=== PATIENT | female | born 1975 | race Caucasian/White ===

== ENCOUNTER 2023-08-07 16:04 | Emergency (ER) | payer OTHER, SELFPAY ==
[2023-08-07] VITALS (17 sets, daily range): BP systolic 107–143; BP diastolic 69–90; PULSE 66–93; RESP 13–27; TEMP 36.6; O2SAT 97–100; BMI 25.8
--- NOTE | 2023-08-07 16:19 | ECG_ITS ---
[facility] Test Date: 2023-08-07 Pat Name: SUNSHINE RAMIREZ Department: Room: - Gender: Female Wound Care Coordinator: : 1975 Requested By: CJ LAZO Order Number: [id number] Reading MD: JODI MARCANO Measurements Intervals Hiller Rate: 67 P: 25 UT: 152 QRS: 107 QRSD: 78 T: 60 QT: 362 QTc: 378 Interpretive Statements 1100 Sinus rhythm 2420 RSR (QR) in lead V1/V2, consistent with right ventricular conduction delay 7100 Abnormal right axis deviation 9130 borderline ECG No previous ECG available for comparison Electronically Signed On 08-08-2023 19:59:56 EST by JODI MARCANO
--- NOTE | 2023-08-07 16:19 | XR_ITS ---
[address] [address] Patient Name: SUNSHINE RAMIREZ MRN: [id number] date: 1975 Sex: F Assigned Patient Location: ER Current Patient Location: ER Accession/Order Number: [id number] Exam Date: 08/07/2023 16:30 Report Date: 08/07/2023 17:08 At the request of: SALLY OLIVERA Procedure: XR chest 1V EXAM: XR chest 1V HISTORY: chest pain COMPARISON: None. TECHNIQUE: Single view of the chest FINDINGS: Heart size normal. No focal consolidation, pleural effusion, pulmonary congestion or pneumothorax. External leads. XR/XR chest 1V IMPRESSION: No acute findings. Electronically authenticated by: JACINTO NASCIMENTO Date: 08/07/2023 17:08
[2023-08-07 16:47] LABS: Basophils Percent Auto 0.5 % (0.2-2.0); Eosinophils Absolute Auto 0.1 10^3/uL (0.0-0.7); Eosinophils Percent Auto 1.4 % (0.9-7.0); Hematocrit 37.7 % (36.0-48.0); Hemoglobin 12.6 g/dL (12.0-16.0); Immature Granulocytes Abs Auto 0.02 10^3/uL (0.00-0.03); Immature Granulocytes Pct Auto 0.3 % (0.0-0.5); Lymphocytes Percent Auto 26.2 % (20.5-60.0); Mean Corpuscular HGB Conc 33.4 g/dL (29.9-35.2); Mean Corpuscular Hemoglobin 30.2 pg (26.7-34.0); Mean Corpuscular Volume 90.4 fL (81.0-99.0); Mean Platelet Volume 9.6 fL (9.5-13.5); Monocytes Absolute Auto 0.8 10^3/uL (0.3-0.8); Monocytes Percent Auto 10.1 % (1.7-12.0); Neutrophils Absolute Auto 4.8 10^3/uL (1.4-6.5); Neutrophils Percent Auto 61.5 % (43.0-75.0); Platelet Count 257 10^3/uL (150-450); Red Blood Count 4.17 10^6/uL (4.20-5.40); Red Cell Distribution Width 11.6 % (11.0-15.0); White Blood Count 7.8 10^3/uL (4.0-11.0)
--- NOTE | 2023-08-07 16:55 | ED_ITS ---
HPI - General Adult General Chief complaint: Chest Pain Stated complaint: CP, ARM/SHOULDER PAIN Time Seen by Provider: 08/07/23 16:09 Source: patient Mode of arrival: walk-in History of Present Illness HPI narrative: Patient has cardiomyopathy and microvascular cardiac disease, she told me. Yesterday she developed dizziness and had increase in pain between her shoulder blades and down her left arm with some chest tightness. She was told that if these symptoms - which aside from the dizziness are chronic - that she should come to the ED to be evaluated. She admitted to me that she recently had increased work and not as much time to eat and drink while she prepared for her son's wedding. No cough/cold symptoms. No fever or chills. No vomiting or diarrhea. Related Data Home Medications Medication Instructions Recorded Confirmed carvedilol 25 mg tablet 62.5 mg PO BID 08/07/23 08/07/23 Allergies Allergy/AdvReac Type Severity Reaction Status Date / Time fentanyl Allergy Severe Verified 08/07/23 16:18 Iodinated Contrast Media Allergy Severe Verified 08/07/23 16:18 midazolam [From Versed] Allergy Severe Verified 08/07/23 16:18 Exam Narrative Exam Narrative: Nurses notes and vital signs reviewed and patient is not hypoxic. afebrile General: Well-appearing and in no apparent distress. Skin: Warm, dry, no pallor noted. Head: Normocephalic, atraumatic. Eye: Pupils are equal, round and EOMI. No scleral icterus. Ears, Nose, Mouth, and Throat: TM are clear, no nasal mucosal hypertrophy. Oral mucosa is moist, no posterior oropharynx erythema, uvula is mid-line Cardiovascular: Regular Rate and Rhythm without murmur, gallop or rub. Respiratory: No accessory muscle use or respiratory distress. Lungs are clear to auscultation, no wheezing, rales or rhonchi Musculoskeletal: normal ROM, no calf or popliteal tenderness, no lower extremity edema/swelling GI: Abdomen is soft, non-distended. Normal bowel sounds. No tenderness to palpation. No rebound, guarding, or rigidity noted. Neurological: A&O x4. No cranial nerve dysfunction observed. No truncal ataxia. Moves all extremities. Sensation intact. Psychiatric: Cooperative and interactive. Normal mood and affect. Constitutional Vital Signs, click to edit/add: Last Vital Signs Temp 97.8 F 08/07/23 16:11 Pulse 71 08/07/23 16:50 Resp 16 08/07/23 16:11 BP 133/74 08/07/23 16:50 Pulse Ox 100 08/07/23 16:11 O2 Del Method Room Air 08/07/23 16:28 Course Vital Signs Vital signs: Vital Signs Temperature 97.8 F 08/07/23 16:11 Pulse Rate 72 08/07/23 16:11 Respiratory Rate 16 08/07/23 16:11 Blood Pressure 135/72 08/07/23 16:11 Pulse Oximetry 100 08/07/23 16:11 Oxygen Delivery Method Room Air 08/07/23 16:11 Temperature 97.8 F 08/07/23 16:11 Pulse Rate 71 08/07/23 16:50 Respiratory Rate 16 08/07/23 16:11 Blood Pressure 133/74 08/07/23 16:50 Pulse Oximetry 100 08/07/23 16:11 Oxygen Delivery Method Room Air 08/07/23 16:28 Medical Decision Making MDM Narrative Medical decision making narrative: Patient was placed on monitoring analyst and EKG obtained. Blood drawn and sent for evaluation. orthostatics were obtained and the patient had an increase in heart rate of 20 bpm and a drop in blood pressure of 28mmHg going from laying to standing. She was given 500mL NS IVF. CBC normal. BMP normal. BNP and troponin negative. EKG without ST elevation. CXR without acute cardiopulmonary findings. Patient and I discussed her results. She was relieved that the workup was negative. 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 Lab Data Lab results reviewed: Yes I reviewed the patient's lab results Labs: Lab Results 08/07/23 Range/Units 16:27 WBC 7.8 (4.0-11.0) 10^3/uL RBC 4.17 L (4.20-5.40) 10^6/uL Hgb 12.6 (12.0-16.0) g/dL Hct 37.7 (36.0-48.0) % MCV 90.4 (81.0-99.0) fL MCH 30.2 (26.7-34.0) pg MCHC 33.4 (29.9-35.2) g/dL RDW 11.6 (11.0-15.0) % Plt Count 257 (150-450) 10^3/uL MPV 9.6 (9.5-13.5) fL Neut % (Auto) 61.5 (43.0-75.0) % Lymph % (Auto) 26.2 (20.5-60.0) % [place] % (Auto) 10.1 (1.7-12.0) % Eos % (Auto) 1.4 (0.9-7.0) % Baso % (Auto) 0.5 (0.2-2.0) % Neut # (Auto) 4.8 (1.4-6.5) 10^3/uL Lymph # (Auto) 2.0 (1.2-3.8) 10^3/uL [place] # (Auto) 0.8 (0.3-0.8) 10^3/uL Eos # (Auto) 0.1 (0.0-0.7) 10^3/uL Baso # (Auto) 0.0 (0.0-0.1) 10^3/uL Abs Immat Gran (auto) 0.02 (0.00-0.03) 10^3/uL Imm/Tot Granulo (auto) 0.3 (0.0-0.5) % Sodium 139 (136-145) mmol/L Potassium 3.7 (3.5-5.1) mmol/L Chloride 103 (98-107) mmol/L Carbon Dioxide 27.4 (21.0-32.0) mmol/L Anion Gap 12.3 BUN 16.0 (7.0-18.0) mg/dL Creatinine 0.92 (0.55-1.02) mg/dL Est GFR ( Amer) >60 (>=60) Est GFR (Non-Af Amer) >60 (>=60) BUN/Creatinine Ratio 17.4 Glucose 121 H (74-106) mg/dL Calcium 9.0 (8.5-10.1) mg/dL Troponin I High Sens <4.0 L (4.0-51.3) pg/mL NT-Pro-B Natriuret Pep 45.0 (<=450.0) pg/mL Imaging Data Chest x-ray: Attestation: I have reviewed the pertinent imaging results. Radiologist's impression: Patient Name: SUNSHINE RAMIREZ MRN: [id number] date: 1975 Sex: F Assigned Patient Location: ER Current Patient Location: ER Accession/Order Number: [id number] Exam Date: 08/07/2023 16:30 Report Date: 08/07/2023 17:08 At the request of: SALLY OLIVERA Procedure: XR chest 1V EXAM: XR chest 1V HISTORY: chest pain COMPARISON: None. TECHNIQUE: Single view of the chest FINDINGS: Heart size normal. No focal consolidation, pleural effusion, pulmonary congestion or pneumothorax. External leads. IMPRESSION: No acute findings. Electronically authenticated by: JACINTO NASCIMENTO Date: 08/07/2023 17:08 ECG Data Attestation: I personally reviewed and interpreted this ECG as follows: Interpretation: EKG interpretation: Emergency Department physician interpretation. Normal sinus rhythm at 67bpm. Right axis, normal intervals and no ST segment elevation or depression. Discharge Plan Discharge Chief Complaint: Chest Pain Clinical Impression: Orthostasis, Chest pain, Dizziness, Paresthesia Time of Disposition Decision: 17:17 Prescriptions / Home Meds: No Action carvedilol 25 mg tablet 62.5 mg PO BID Instructions: Chest Pain (ED), Dizziness (ED) Stand Alone Forms: Portal Instructions Referrals: Natalie Ya MD [Primary Care Provider] - 1 week
[2023-08-07] MEDS: 0.9 % SODIUM CHLORIDE 500 ML IV (17:10)
[2023-08-07 17:12] LABS: Anion Gap 12.3; BUN Creatinine Ratio 17.4; Carbon Dioxide 27.4 mmol/L (21.0-32.0); Chloride 103 mmol/L (98-107); Estimated GFR (African America >60 (>=60); Estimated GFR (Non-African Ame >60 (>=60); Glucose 121 mg/dL (74-106); Potassium 3.7 mmol/L (3.5-5.1); Sodium 139 mmol/L (136-145); Troponin I High Sensitivity <4.0 pg/mL (4.0-51.3)
== END 2023-08-07 17:35 | disposition home or self-care (01) ==
LOC: ER 16:24
PROVIDERS: Emergency Provider Emergency Medicine; PCP Family Medicine
DX: R07.9 Chest pain, unspecified (principal); R42 Dizziness and giddiness; R00.2 Palpitations; I95.1 Orthostatic hypotension
CPT/HCPCS: 36415; 71045; 80048; 83880; 84484; 85025; 87811; 93005; 99284

== ENCOUNTER 2023-09-17 13:18 | Outpatient (OUT) | payer OTHER, SELFPAY ==
--- NOTE | 2023-09-17 13:42 | MM_ITS ---
Patient Name: SUNSHINE RAMIREZ MR#: [id number] : 1975 Exam Date: 09/17/2023 Ordering Doctor: DR. OLMAN STEELE D.O. RADIOLOGY REPORT PROCEDURE: MM TOMOSYNTHESIS SCREENING BI COMPARISON: MG MAMM SCREEN 3D LORNA CAD, 09/01/2021. MG MAMM SCREEN 3D [place]ORNA CAD, 09/15/2022. INDICATIONS: Screening Calculator Name NCI Breast Cancer Risk Assessment Tool 5 Year Breast Cancer Risk 0.80% Lifetime Breast Cancer Risk 8.30% Personal Breast Cancer No Personal Ovarian Cancer No Treatments None Family Cancers Aunt-paternal with skin cancer at age 50; Uncle-paternal with lung cancer at age 40. LOCATION: [facility] BREAST COMPOSITION: Heterogeneously dense,which may obscure small masses. FINDINGS: DIAGNOSTIC CATEGORY 1--NEGATIVE. NO CHANGE FROM COMPARISON ASSESSMENT. Scattered benign-appearing lymph nodes are present. RIGHT BREAST: No significant suspicious finding. Stable nodule upper outer quadrant, likely a lymph node LEFT BREAST: No significant suspicious finding. RECOMMENDATIONS: ROUTINE MAMMOGRAM AND CLINICAL EVALUATION IN 12 MONTHS. PLEASE NOTE: A NORMAL MAMMOGRAM DOES NOT EXCLUDE THE POSSIBILITY OF BREAST CANCER. A CLINICALLY SUSPICIOUS PALPABLE LUMP SHOULD BE BIOPSIED. Dictated by: Sina Owusu MD on 09/17/2023 at 14:32 Approved by: Sina Owusu MD on 09/17/2023 at 14:34
== END 2023-09-17 13:19 | disposition home or self-care (01) ==
LOC: MAMMO 13:18
PROVIDERS: PCP Family Medicine; Visit Provider Obstetrics & Gynecology
DX: Z12.31 Encounter for screening mammogram for malignant neoplasm of breast (principal); Z80.1 Family history of malignant neoplasm of trachea, bronchus and lung; Z80.8 Family history of malignant neoplasm of other organs or systems
CPT/HCPCS: 77063; 77067

== ENCOUNTER 2023-11-09 12:31 | Outpatient (OUT) | payer OTHER, SELFPAY ==
--- NOTE | 2023-11-09 12:36 | MR_ITS ---
The [address] [address] Patient Name: SUNSHINE RAMIREZ MRN: [id number] date: 1975 Sex: F Assigned Patient Location: MRI Current Patient Location: MRI Accession/Order Number: [id number] Exam Date: 11/09/2023 12:46 Report Date: 11/09/2023 14:57 At the request of: NON-STAFF PHYSICIAN Procedure: MR head/brain wo con EXAM: MR head/brain wo con HISTORY: Headache, dva with new dizziness COMPARISON: CT brain 10/29/2021, MRI brain 11/24/2017. TECHNIQUE: MRI of the brain was performed without contrast. FINDINGS: There is no restricted diffusion to suggest acute infarct. There is no midline shift, mass effect, or abnormal extraaxial fluid collections. The cortical sulci and ventricular system are within normal limits. There are a few scattered tiny nonspecific T2/FLAIR bright foci in the supratentorial white matter. The major intracranial flow voids are visualized. The cerebellar tonsils are normal in position. The orbits are unremarkable. The paranasal sinuses show no air-fluid level. There are mild mucosal thickening of bilateral maxillary sinuses and ethmoid air cells. The mastoid air cells are clear. The calvarium and extracranial soft tissues are unremarkable. MR/MR head/brain wo con IMPRESSION: No acute intracranial abnormality. A few nonspecific scattered T2/FLAIR bright tiny foci in the supratentorial white matter, could be seen in migraine headaches or mild chronic microvascular ischemia. Additional differential considerations include demyelination, vasculitis or Lyme disease. Recommend clinical correlation. Electronically authenticated by: SIMA HARVEY Date: 11/09/2023 14:57
== END 2023-11-09 12:32 | disposition home or self-care (01) ==
LOC: MRI 12:31
PROVIDERS: PCP Family Medicine
DX: Q27.9 Congenital malformation of peripheral vascular system, unspecified (principal)
CPT/HCPCS: 70551

== ENCOUNTER 2023-12-10 10:59 | Outpatient (OUT) | payer OTHER, SELFPAY ==
--- NOTE | 2023-12-10 11:15 | XR_ITS ---
The [address] [address] Patient Name: SUNSHINE RAMIREZ MRN: [id number] date: 1975 Sex: F Assigned Patient Location: [facility] Current Patient Location: Accession/Order Number: [id number] Exam Date: 12/10/2023 11:10 Report Date: 12/11/2023 05:36 At the request of: CJ LAZO Procedure: XR lumbar spine 2-3V EXAMINATION: XR lumbar spine 2-3V HISTORY: lumbar back pain M54.50 COMPARISON: No relevant comparison available. FINDINGS: BONES: No significant spondylosis, scoliosis, fracture, or visible bony lesion. DISC SPACES: Slight narrowing L3-L4. PARASPINOUS: Negative. No paraspinous abnormality is seen. OTHER: Negative. XR/XR lumbar spine 2-3V IMPRESSION: 1. Minimal degenerative disc disease L3-L4. Electronically authenticated by: GABRIELA CONKLIN Date: 12/11/2023 05:36
== END 2023-12-10 11:00 | disposition home or self-care (01) ==
LOC: RAD 11:01
PROVIDERS: PCP Family Medicine; Visit Provider Family Medicine
DX: M54.50 Low back pain, unspecified (principal); M51.36 Other intervertebral disc degeneration, lumbar region
CPT/HCPCS: 72100

== ENCOUNTER 2024-01-08 07:55 | Outpatient (OUT) | payer OTHER, SELFPAY ==
--- OUTSIDE RECORDS SUMMARY | 2024-01-08 07:59 | XMS_ITS | CCD ---
Author Organization [facility] Care Team Providers Care Appliance Technician Name Role Phone Catherine GENEVIEVE Denise Attending Provider Cj Lazo MD Primary Care Provider [phone] Yas Garcia Unavailable Cj Lazo MD Primary Care Provider Cj Lazo MD Primary Care Provider CJ LAZO Primary Care Physician MISC, DR PADRON Consulting Unavailable MISC, DR PADRON Attending Unavailable MISC, DR PADRON Admitting Unavailable LAZO, DR CJ Rai Primary Care Unavailable ZIEBER, DR GABRIELA Mendoza Consulting Unavailable MISC, DR PADRON Consulting Unavailable MISC, DR PADRON Attending Unavailable MISC, DR PADRON Admitting Unavailable VIOLET, DR CJ Rai Primary Care Unavailable MISC, DR PADRON Attending Unavailable MISC, DR PADRON Admitting Unavailable LAZO, DR CJ Rai Primary Care Unavailable MISC, DR PADRON Consulting Unavailable MISC, DR PADRON Attending Unavailable MISC, DR PADRON Admitting Unavailable DR CJ LAZO Primary Care Unavailable MISC, DR PADRON Consulting Unavailable MISC, DR PADRON Consulting Unavailable LAZO, DR CJ Rai Primary Care Unavailable MISC, DR PADRON Attending Unavailable MISC, DR PADRON Admitting Unavailable LAZO, DR CJ Rai Primary Care Unavailable RINKES, ILANA Attending Unavailable RINKES, ILANA Admitting Unavailable ZIEBER, DR GABRIELA Mendoza Consulting Unavailable ILANA STEELE Consulting Unavailable MISC, DR PADRON Admitting Unavailable VIOLET, DR CJ Rai Primary Care Unavailable MISC, DR PADRON Consulting Unavailable MISC, DR PADRON Attending Unavailable MISC, DR PADRON Admitting Unavailable MISC, DR PADRON Consulting Unavailable MISC, DR PADRON Attending Unavailable VIOLET, DR CJ Rai Primary Care Unavailable Violet CLINE, jC Primary Care Provider CJ LAZO Primary Care Unavailable CJ LAZO Referring Unavailable TRIP SOSA Attending Unavailable CJ LAZO Primary Care Unavailable TRIP SOSA Attending Unavailable CJ LAZO Primary Care Unavailable CJ LAZO Referring Unavailable ILANA STEELE Attending Unavailable Viral Smith Attending Unavaila Jessica Wade Attending Unavailable LAVONAMPetty Admitting Unavailable SALAM, Petty Attending Unavailable SALAM, Dove Referring Unavailable Jessica Lopez A Attending Unavailable Jessica Lopez Attending Unavailable Jessica Lopez Attending Unavailable Allergies Allergy Classification Reported Allergen(s) Allergy Type Date of Onset Reaction(s) Facility (17 sources) fentaNYL; Translations: [fentanyl] Drug Allergy 9 Rash [facility] (16 sources) Midazolam; Translations: [midazolam] Drug Allergy 9 Rash [facility] Other (4 sources) mri contrast Propensity to adverse reactions 4 Unknown, [facility] (4 sources) gadobutrol Drug Allergy 9 Rash, Itchy Throat, Chills, Dry Mouth [facility] (7 sources) Contrast media; Translations: [contrast media (gadolinium-bas ed)] Drug allergy Rash, Cough [facility] (1 source) fentaNYL Drug Allergy [facility] (1 source) Gadolinium Drug Allergy [facility] (2 sources) Midazolam; Translations: [Versed] Drug Allergy [facility] (4 sources) Gadolinium-Cont aining Contrast Media Drug Allergy 3 Anaphylaxis [facility] (2 sources) gadobutrol Drug Allergy 9 Rash, Itchy Throat, Chills, Dry Mouth [facility] (1 source) Iodinated Contrast Media Allergy to substance 4 Comment:[facility] Medications Current Medications Medication Drug Class(es) Dates Sig (Normalized) Sig (Original) busPIRone hydrochloride 10 mg oral tablet (1 source) Start: 12-20-2023 take 1 tablet by mouth three times daily busPIRone 10 mg Tab 10 mg = 1 tab(s), Oral, TID, # 90 tab(s), Refills(s) 6, Pharmacy: [facility] [id number], 157, cm, 12/20/23 11:01:00 EDT, Height/Length Dosing, 70, kg, 12/20/23 11:01:00 EDT, Weight Dosing Start Date: 12/20/23 Status: Ordered carvedilol 25 mg oral tablet (20 sources) alpha-Adrenergic Nathen, beta-Adrenergic Nathen Start: 08-04-2023 take 2.5 tablets by mouth twice daily at mealtime carveDILOL 25 MG tablet Indications: Other cardiomyopathy , Palpitations Take 2.5 tablets by mouth 2 times daily with meals. 450 tablet 3 08/04/2023 Active Start: 04-22-2023 take 1.5 tablets by mouth twice daily at mealtime carveDILOL 25 MG tablet Indications: Other cardiomyopathy , Palpitations Take 1.5 tablets by mouth 2 times daily with meals. Increase Dose 270 tablet 3 04/22/2023 Active Start: 10-29-2017 End: 04-22-2023 take 1 tablet by mouth twice daily Carvedilol (Coreg) 25 mg tablet Active 1 TAB PO Twice daily December 09, 2023 12:00am FreeTextSi Tablet Orally bid; Note: Source Status: Taking; Provider: Jose Sorenson ( ) Comment on above: Take 25 mg by mouth twice daily with meals. cetirizine hydrochloride 10 mg oral tablet (17 sources) Histamine-1 Receptor Antagonist Start: 10-29-2017 End: 04-22-2023 Zyrtec 10 mg, Oral, PRN Allergy symptoms, Refills(s) 0 Start Date: 10/29/17 Status: Ordered CETIRIZINE HCL ( ZYRTEC ORAL) Take by mouth. 0 Active Comment on above: Take by mouth. nitrofurantoin, macrocrystals 25 mg / nitrofurantoin, monohydrate 75 mg oral capsule (1 source) Nitrofuran Antibacterial Start: 03-12-20 take 1 capsule by mouth every twelve hours Macrobid 100 MG 1 capsule with food Orally every 12 hrs for 5 days Mar, Active phenazopyridine hydrochloride 200 mg oral tablet (1 source) Start: 03-12-20 take 1 tablet by mouth every eight hours Pyridium 200 MG 1 tablet after meals Orally Three times a day for 2 day(s) Mar, Active Psyllium (3 sources) Start: 11-27-19 Metamucil Oral, Refills(s) 0, Constipation Start Date: 11/26/20 Status: Ordered Start: 11-26-2020 Metamucil Oral , Refills(s) 0 Start Date: 11/26/20 Status: Ordered Vitamin D (3 sources) Start: 11-26-2020 Vitamin D Inte rnational_Unit, Oral, Daily, Refills(s) 0, Prophylaxis Start Date: 11/26/20 Status: Ordered Start: 11-26-2020 Vitamin D Inte rnational_Unit, Oral, Daily, Refills(s) 0 Start Date: 11/26/20 Status: Ordered Benefiber (12 sources) Start: 12-21-2022 Benefiber Oral , Daily, Refill(s) 0, Constipation Start Date: 12/21/22 Status: Ordered Start: 12-21-2022 Benefiber Refi ll(s) 0 Start Date: 12/21/22 Status: Ordered take 1 dose by mouth once daily Wheat Dextrin (BENEFIBER PO) Take 1 Dose by mouth. Powder that pt takes once a day Active take 1 dose by mouth once daily Wheat Dextrin (BENEFIBER PO) Take 1 Dose by mouth. Powder that pt takes once a day 0 Active Completed/Discontinued Medications Medication Drug Class(es) Dates Sig (Normalized) Sig (Original) atorvastatin 20 mg oral tablet (5 sources) HMG-CoA Reductase Inhibitor Start: 09-25-2021 End: 04-22-2023 take 1 tablet by mouth once daily atorvastatin (Lipitor) 20 MG tablet Take 1 tablet by mouth daily. 90 tablet 3 09/25/2021 04/22/2023 Discontinued 24 hr dilTIAZem hydrochloride 120 mg extended release oral capsule (3 sources) Calcium Channel Nathen Start: 10-01-2022 End: 04-22-2023 take 1 capsule by mouth once daily Diltiazem 120 MG Cap SR 24HR capsule XL Take 1 capsule by mouth daily. 90 capsule 3 10/01/2022 04/22/2023 Discontinued iv contrast (will be provided with radiology test) (5 sources) Start: 11-16-2022 inject 1 dose intravenously once iv contrast (will be provided with radiology test) Indications: Developmental venous anomaly MRI Brain Inject, intravenously, once for 1 dose.No IV access, insert saline lock prior to beginning of sedation, infusion, injection of imaging exam.Discontinue saline lock post exam. If Pt. has a central line or IVAD, may access for administration according to line specific nursing protocol.Once exam is complete flush line and de-access according to line specific nursing protocol in the MR contrast administration guidelines link 1 Each 0 11/16/2022 Active Comment on above: MRI Brain Inject, in travenously, once for 1 dose.No IV access, insert saline lock prior to beginning of sedation, infusion, injection of imaging exam.Discontinue saline lock post exam. If Pt. has a central line or IVAD, may access for administration according to line specific nursing protocol.Once exam is complete flush line and de-access according to line specific nursing protocol in the MR contrast administration guidelines link lisinopril 5 mg oral tablet (18 sources) Angiotensin Converting Enzyme Inhibitor Start: 10-29-2017 End: 12-10-2023 take 1 tablet by mouth once daily Lisinopril Discontinued 1 TAB PO Daily December 09, 2023 12:00am December 10, 2023 10:32am FreeTextSi tablet Orally Once a day; Note: Source Status: Taking; Provider: Jose Sorenson ( ) Comment on above: Take 5 mg by mouth o nce daily. omeprazole 40 mg delayed release oral capsule (5 sources) Proton Pump Inhibitor take 1 capsule by mouth once daily Omeprazole 40 mg capsule Take 40 mg by mouth once daily. 0 Active Comment on above: Take 40 mg by mouth once daily. Problems Active Problems Problem Classification Problem Date Documented Da te Episodic/Chronic Abdominal pain (16 sources) Right upper quadrant pain; Translations: [Right upper quadrant pain] Onset: 3 Episodic Cardiac and circulatory congenital anomalies (3 sources) Venous malformation; Translations: [Other malformations of cerebral vessels] Chronic Cardiac dysrhythmias (9 sources) Palpitations; Translations: [Palpitations] Onset: 3 07-24-2008 Episodic Conditions associated with dizziness or vertigo (6 sources) Lightheadedness; Translations: [Dizziness and giddiness] 07-24-2008 Episodic Congestive heart failure; nonhypertensive (7 sources) Chronic systolic heart failure; Translations: [Chronic systolic (congestive) heart failure] Onset: 3 Chronic Coronary atherosclerosis and other heart disease (8 sources) Heart disease; Translations: [Other forms of chronic ischemic heart disease] Onset: 3 Chronic Esophageal disorders (9 sources) Gastroesophageal reflux disease without esophagitis; Translations: [Gastro-esophageal reflux disease without esophagitis] Onset: 3 Chronic Genitourinary symptoms and ill-defined conditions (5 sources) Dysuria; Translations: [Dysuria] Onset: 2 Resolved: 2 Episodic Nausea and vomiting (5 sources) Nausea; Translations: [Nausea] Onset: 3 Episodic Other gastrointestinal disorders (6 sources) Irritable bowel syndrome; Translations: [Mixed irritable bowel syndrome] Onset: 9 03-03-2019 Chronic Other gastrointestinal disorders (6 sources) Irritable bowel syndrome characterized by alternating bowel habit; Translations: [Mixed irritable bowel syndrome] Onset: 3 Chronic Other gastrointestinal disorders (8 sources) Diarrhea; Translations: [Diarrhea, unspecified] Onset: 3 Episodic Other gastrointestinal disorders (10 sources) Dysphagia; Translations: [Dysphagia, unspecified] Onset: 3 Episodic Other gastrointestinal disorders (4 sources) Diarrhea, unspecified; Translations: [DIARRHEA UNSPECIFIED] Onset: 3 Episodic Other gastrointestinal disorders (4 sources) Heartburn; Translations: [Heartburn] Onset: 3 Episodic Other gastrointestinal disorders (1 source) Swollen abdomen; Translations: [Abdominal distension (gaseous)] Onset: 4 Episodic Other gastrointestinal disorders (1 source) Abdominal bloating 12-17-2023 Episodic Other nervous system disorders (5 sources) Tremor, unspecified; Translations: [TREMOR UNSPECIFIED] Onset: 2 Episodic Other non-traumatic joint disorders (1 source) Joint pain; Translations: [Pain in unspecified joint] 12-10-2023 Episodic Other non-traumatic joint disorders (1 source) Pain in unspecified joint; Translations: [Pain in joint, site unspecified] 12-10-2023 Episodic Glendy-; endo-; and myocarditis; cardiomyopathy (except that caused by tuberculosis or sexually transmitted disease) (6 sources) Cardiomyopathy; Translations: [Other cardiomyopathies] Onset: Chronic Residual codes; unclassified (6 sources) Insomnia; Translations: [Insomnia, unspecified] 07-24-2008 Episodic Spondylosis; intervertebral disc disorders; other back problems (2 sources) Low back pain; Translations: [Lumbar back pain] 12-10-2023 Episodic Unclassified (6 sources) Finding of sensation of abdomen 12-21-2022 Unclassified (2 sources) Family history of lupus erythematosus; Translations: [Family history of lupus] 12-10-2023 Past or Other Problems Problem Classification Problem Date Documented Da te Episodic/Chronic Malaise and fatigue (1 source) Other fatigue; Translations: [OTHER FATIGUE] Onset: 08-20-2022 Episodic Nonspecific chest pain (4 sources) Other chest pain; Translations: [OTHER CHEST PAIN] Onset: 08-14-2022 Episodic Other complications of ; puerperium affecting management of mother (6 sources) cardiomyopathy; 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] Onset: 07-26-2008 07-26-2008 Episodic Other connective tissue disease (5 sources) Muscle pain; Translations: [Myalgia, unspecified site] Onset: 05-21-2016 05-21-2016 Episodic Other connective tissue disease (5 sources) Fibromyalgia; Translations: [Fibromyalgia] Onset: 05-21-2016 05-21-2016 Episodic Other disorders of stomach and duodenum (6 sources) Intestinal metaplasia of gastric cardia; Translations: [Intestinal metaplasia of gastric cardia] Onset: 07-12-2019 07-12-2019 Episodic Other gastrointestinal disorders (6 sources) Esophageal dysphagia; Translations: [Other dysphagia] Onset: 03-03-2019 03-03-2019 Episodic Other lower respiratory disease (6 sources) Finding of respiration; Translations: [Other forms of dyspnea] Onset: 04-06-2013 04-06-2013 Episodic Other nervous system disorders (5 sources) Numbness and tingling sensation of skin; Translations: [Anesthesia of skin] Onset: 05-21-2016 05-21-2016 Episodic Other non-traumatic joint disorders (5 sources) Multiple joint pain; Translations: [Pain in unspecified joint] Onset: 05-21-2016 05-21-2016 Episodic Other non-traumatic joint disorders (5 sources) Multiple stiff joints; Translations: [Stiffness of unspecified joint, not elsewhere classified] Onset: 05-21-2016 05-21-2016 Episodic Other screening for suspected conditions (not mental disorders or infectious disease) (4 sources) Encounter for screening mammogram for malignant neoplasm of breast; Translations: [ENC SCR MAMMO MALIG NEOPLASM BREAST] Onset: 09-15-2022 Episodic Residual codes; unclassified (5 sources) FH: Rheumatoid arthritis; Translations: [Family history of arthritis] Onset: 05-21-2016 05-21-2016 Episodic Residual codes; unclassified (5 sources) Family history of lupus erythematosus; Translations: [Family history of diseases of the skin and subcutaneous tissue] Onset: 05-21-2016 05-21-2016 Episodic Residual codes; unclassified (1 source) Family history of malignant neoplasm of trachea, bronchus and lung; Translations: [FAM HX MALIG NEOPLSM TRACH BRON LNG] Onset: 09-17-2022 Episodic Residual codes; unclassified (1 source) Family history of malignant neoplasm of other organs or systems; Translations: [FAM HX MALIG NEOPLASM OTH ORGN/SYS] Onset: 09-17-2022 Episodic Urinary tract infections (1 source) Acute cystitis with hematuria Onset: 03-12-2022 Resolved: 03-12-2022 Episodic Results Test Name Value Interpretation Reference Range Facility Gastroenterology Office/Clin ic Noteon 12-20-2023 Gastroenterology Office/Clinic Note Chief Complaint bloating, abd. pain/cramping and nausea HPI Staff Patient is a 48 year old female who presents today for a sick call with c/o abdominal pain/cramps/bloating and nausea. No fam. hx of colon cancer. No previous colon polyps. Denies blood thinner use. Last visit 05/04/23 w/Jessica: Assessment/Plan 1. Heartburn (R12: Heartburn) Discussed use of PPI for management of heartburn- patient declines at this time. Educated regarding use of OTC pepcid 20mg at bedtime PRN- is agreeable to trying pepcid. 2. RUQ pain (R10.11: Right upper quadrant pain) Has off/on LUQ or RUQ abdominal pain. 3. Mixed irritable bowel syndrome (K58.2: Mixed irritable bowel syndrome) Improved with Benefiber 1 tablespoon. Educated to start probiotics and IBgard as needed. 4. Dysphagia (R13.10: Dysphagia, unspecified) Is having difficulty swallowing solids for years- is not interested in further testing regarding. EGD completed 12/28/2022 revealed normal esophagus?dilated, normal gastric mucosa, normal duodenum, fundus biopsy revealed no significant pathologic changes, gastric body biopsy revealed no significant pathologic changes, incisura biopsy revealed no significant pathologic changes, antrum biopsy revealed no significant pathologic changes, negative for H. pylori. Declines further testing for dysphagia. 5. Abdominal cramping (R10.9: Unspecified abdominal pain) Reports rare occasions of LUQ and RUQ pain described as sharp and goes away on its own. 6. Nausea (R11.0: Nausea) Reports nausea at times that is triggered by coffee. EGD 12/28/22: Impression and Plan 1. Normal esophagus, Z line at 40 cm, empiric esophageal dilation performed using 58 [place] dilator 2. Normal gastric mucosa, random biopsies obtained from antrum, incisura, gastric body and fundus 3. Normal duodenum Pathology: Final Diagnosis (Verified) A: FUNDUS, BIOPSY: ? GASTRIC MUCOSA WITH NO SIGNIFICANT PATHOLOGIC CHANGES. B: INCISURA, BIOPSY: ? GASTRIC MUCOSA WITH NO SIGNIFICANT PATHOLOGIC CHANGES. C: GASTRIC BODY, BIOPSY: ? GASTRIC MUCOSA WITH NO SIGNIFICANT PATHOLOGIC CHANGES. D: ANTRUM, BIOPSY: ? ANTRAL MUCOSA WITH NO SIGNIFICANT PATHOLOGIC CHANGES. ? NO H. PYLORI MICROORGANISMS IDENTIFIED WITH IMMUNOSTAIN. Colonoscopy 09/27/20: Impression: 1. Normal terminal ileum. 2. Small nonbleeding internal hemorrhoids, otherwise normal colonoscopy. Recommendations: Repeat colonoscopy:: In 10 years. GES 07/12/20: IMPRESSION: GASTRIC EMPTYING IS WITHIN NORMAL LIMITS. Technical Comments Dose (mCi Tc99m Sulfur Colloid): 0.9 Dose Administered With: MIXED WITH 4 OZ EGG BEATERS 1 SLICE TOAST AND 120 ML WATER Time Frame Required to Ingest the Meal (mins): 7 % Remainin.5 hr (Lower Limit 70%) 77.5 1.0 hr (Lower Limit 30%, Upper Limit 90%) 42.2 2.0 hr (Upper Limit 60%) 16 3.0 hr (Upper Limit 30%) 3.2 History of Present Illness abdominal pain/cramping bloating- certain foods make it worse (dark chocolate) gas- most of the time burping, does not taking anything to control acid reflux Took omeprazole in the past but states that it stopped working nausea- appetite comes and goes Gastric emptying study in the past 2019 seen [facility] had neg impedance test Review of Systems PHQ Score Initial Depression Screen Score: 0 SCORE All systems reviewed, negative; Except for above Physical Exam Vitals & Measurements HR: 68(Peripheral) RR: 18 BP: 110/60 HT: 62 in HT: 157 cm WT: 70 kg WT: 154 lb BMI: 28.4 General: in Nad Abdomen: Soft, NTND Assessment/Plan 1. Abdominal bloating (R14.0: Abdominal distension (gaseous)) If pain persist then we will discuss align if needed We discussed low FODMAP diet, lactose-free diet Also FDgard, she reported peppermint oil helped in the past Will also do BuSpar 10 mg 3 times daily She had negative EGD in the past, I do not like to repeat it right now Also she had gastric emptying study in 2019 with accelerated emptying, 3% in 3 hours We discussed lifestyle modifications for that 2. Acid reflux (K21.9: Gastro-esophageal reflux disease without esophagitis) Take tums, Pepcid and Gaviscon as needed She had negative manometry's multiple times in the past per her report and she had negative impedance test in 2019 in [place] per her report Suspect hypersensitivity 3. Nausea (R11.0: Nausea) Discussed lifestyle modifications- lactose free diet and FODmap diet FDgard OTC Start BusPar 10mg TID I, Kathleen Pinon, personally scribed for Viral Smith MDon 12/20/2023 11:53:44. . Documentation recorded by Kathleen Pinon, accurately reflects the services I performed and decisions made by me. Viral Smith MD Follow-up With When Contact Information Luis CLINE, GAIL Pappas, [facility] Within 3 months [address] [facility], [address] [phone] [phone] Additional Instructions: Problem Lis (more content not included)... Normal [facility] Comment on above: Result Comment: Elec tronically Signed By: Luis CLINE, Viral Garcia\.br\Date and Time Signed: 12/20/23 11:57 EDT\.br\Electronically Co-Signed By: Kathleen Pinon MA\.br\Date and Time Co-Signed: 12/20/23 11:55 EDT CNPNon 10-29-2023 CNPN Telephone (NECVS8) MARIANNA RAMIREZ ([id number]) 1975 F Date Time Provider Department 10/29/23 ALICIA BOLIVAR [id number] During your visit today, we recorded the following information about you: Rina Lord 10/29/2023 4:48 PM Signed CV PHONE Name of caller : Avis Relationship to patient : [facility] If not self Will need patient permission to release results or disclose health information with called documented in . Patient identified by Name and Date of . ( Marianna Ramirez, 1975). Yes Number to return call [phone] Reason for Call: Avis is calling from [facility] to obtain notes and information for prior Auth of MRI WO IVCON. Sent: Thank you calling [facility] [place]. You will receive a return call within 48 hours ( or 2 business days if close to the weekend). If you feel that this is an urgent issue and needs immediate attention, it is recommended that you contact your primary care provider office or proceed to your nearest Urgent Care Center of Emergency Room ED for evaluation/treatment. Ilana Heredia 11/12/2023 2:24 PM Signed Received faxes from [facility] with results Jatinder Valle, RN 11/15/2023 9:55 AM Signed Returned fax with cover letter stating below: Thank you for the MRI report, please push images electronically to [facility] for further review by Dr. Bolivar's office. Thanks! Jatinder Leonard RN [phone], option [phone] Allergies As of Date: 10/29/2023 Noted Allergy Reaction GADOLINIUM-CONTAINING CONTRAST ME*04/14/2023 10 - Anaphylaxis Comments: Throat closing and coughing post MRI with MINI even with premed Date Reviewed: 06/21/2018 Reviewed by: Charles Gutierrez (Devora), DEVORA - Fully Assessed Reason for Visit: Provider Question [Other] Prescriptions as of 11/15/2023 - iv contrast (will be provided with radiology test) MRI Brain Inject, intravenously, once for 1 dose.No IV access, insert saline lock prior to beginning of sedation, infusion, injection of imaging exam.Discontinue saline lock post exam. If Pt. has a central line or IVAD, may access for administration according to line specific nursing protocol.Once exam is complete flush line and de-access according to line specific nursing protocol in the MR contrast administration guidelines link - CETIRIZINE HCL (ZYRTEC ORAL) Take by mouth. - carvedilol (COREG) 25 mg tablet Take 25 mg by mouth twice daily with meals. - lisinopril (ZESTRIL, PRINIVIL) 5 mg tablet Take 5 mg by mouth once daily. - Omeprazole 40 mg capsule Take 40 mg by mouth once daily. Problem List As Of Date 10/29/2023 Noted Resolved Pain in joint, multiple sites [M25.50] 05/21/2016 Family history of rheumatoid arthritis [Z82.61] 05/21/2016 Family history of lupus erythematosus [Z84.0] 05/21/2016 Myalgia [M79.10] 05/21/2016 Numbness and tingling sensation of skin [R20.0,*05/21/2016 Fibromyalgia [M79.7] 05/21/2016 Joint stiffness of multiple sites [M25.60] 05/21/2016 Encounter Status:Closed by RINA LORD on 10/29/23 [facility] 10-25-2023 FABIANA Telephone (NECVS8) MARIANNA RAMIREZ ([id number]) 1975 F Date Time Provider Department 10/25/23 ALICIA BOLIVAR [id number] During your visit today, we recorded the following information about you: Rina Lord 10/25/2023 2:23 PM Signed CV PHONE Name of caller : Marianna Relationship to patient : Self If not self Will need patient permission to release results or disclose health information with called documented in fyi. Patient identified by Name and Date of . ( Marianna Ramirez, 1975). Yes Number to return call [phone] Reason for Call: Symptoms Call: Symptoms: headache , dizzy spells, patient hears a popping nose, experience numbness in lips Duration: >48 hours Progression: worse Pain level: 8 on a scale of 0-10. Type of pain (feels like): pressure and radiating Frequency: constant and intermittent Location of pain: Head and Neck [facility]: [facility] Patient is calling concern about overlapping symptoms from other conditions and just want to be sure it's not something else going on. Thank you calling [facility]. You will receive a return call within 48 hours ( or 2 business days if close to the weekend). If you feel that this is an urgent issue and needs immediate attention, it is recommended that you contact your primary care provider office or proceed to your nearest Urgent Care Center of Emergency Room ED for evaluation/treatment. Carmita Giraldo RN 10/25/2023 2:49 PM Signed Returned call to patient. Patient states that she has been having some shoulder and neck pain for a few weeks. She then developed menstrual headaches. In the interim, patient saw chiropractor who adjusted back and adjusted neck. States symptoms have not improved, possibly worse. Denies stroke symptoms. Reviewed headache management. Reviewed stroke signs and symptoms. Patient verbalized understanding. Patient would like to pursue imaging for DVA if possible but aware may be difficult due to Gadolinium allergy. Forwarded to Dr Bolivar's team to review Jatinder Valle, LEONID 10/25/2023 4:06 PM Signed Called patient. She also describes facial pressure that radiates into her jaw and ears, that occurs along with her ear popping. She said it feels like a sinus infection but she has not been blowing her nose. Discussed she should consider discussing symptomatic treatment with her PCP but did verify that Dr. Bolivar previously okayed MRI w/o contrast. Reinforced that it will not show an asymptomatic DVA, but could show changes such as a development of a cavernoma, especially if there was any bleeding. Patient verifies understanding and agrees with plan. Will overnight order. LEONID Echols Tracey A 10/26/2023 4:25 PM Signed Per nurse request, mailed envelope to patient per via [employer] on Wednesday10/26/2023 tracking # [id number] Allergies As of Date: 10/25/2023 Noted Allergy Reaction GADOLINIUM-CONTAINING CONTRAST ME*04/14/2023 10 - Anaphylaxis Comments: Throat closing and coughing post MRI with MINI even with premed Date Reviewed: 06/21/2018 Reviewed by: Charles Gutierrez ([employer] Le[employer]ter), DEVORA - Fully Assessed Reason for Visit: Symptoms [3640] Prescriptions as of 10/26/2023 - iv contrast (will be provided with radiology test) MRI Brain Inject, intravenously, once for 1 dose.No IV access, insert saline lock prior to beginning of sedation, infusion, injection of imaging exam.Discontinue saline lock post exam. If Pt. has a central line or IVAD, may access for administration according to line specific nursing protocol.Once exam is complete flush line and de-access according to line specific nursing protocol in the MR contrast administration guidelines link - CETIRIZINE HCL (ZYRTEC ORAL) Take by mouth. - carvedilol (COREG) 25 mg tablet Take 25 mg by mouth twice daily with meals. - lisinopril (ZESTRIL, PRINIVIL) 5 mg tablet Take 5 mg by mouth once daily. - Omeprazole 40 mg capsule Take 40 mg by mouth once daily. Problem List As Of Date 10/25/2023 Noted Resolved Pain in joint, multiple sites [M25.50] 05/21/2016 Family history of rheumatoid arthritis [Z82.61] 05/21/2016 Family history of lupus erythematosus [Z84.0] 05/21/2016 Myalgia [M79.10] 05/21/2016 Numbness and tingling sensation of skin [R20.0,*05/21/2016 Fibromyalgia [M79.7] 05/21/2016 Joint stiffness of multiple sites [M25.60] 05/21/2016 Encounter Status:Closed by CARMITA GIRALDO on 10/25/23 Normal [facility] Ambulatory Visit Summaryon 0 05-04-2023 Ambulatory Visit Summary MARIANNA RAMIREZ :1975 MRN:[id number]-- Visit Date:05/04/2023 Ambulatory Visit Instructions Your Diagnosis Heartburn RUQ pain Mixed irritable bowel syndrome Dysphagia Abdominal cramping Nausea Your Care Team Attending Physician - Jessica Lopez CNP Primary Care Physician - CJ LAZO MD This Is Your Medications List Contact prescribing physician if questions or concerns carvedilol (Coreg) cetirizine (Zyrtec) lisinopril wheat dextrin (Benefiber) Procedures Performed Esophagogastroduodeno scopy (12/28/2022), Colonoscopy (09/27/2020), EGD (esophagogastroduoden oscopy) gastric outlet reduction. Discharge Vitals Temperature (Temporal Artery) 36.4 ?C Heart Rate (Peripheral) 79 Blood Pressure 110/75 Height 157 cm Height 62 in Weight 64.2 kg Weight 141.24 lb BMI 26.05 What to do next You Need to Schedule the Following Appointments Follow Up with Jessica Lopez CNP When: Within 6 months Where: Medications What How Much When Instructions Unchanged carvedilol (Coreg) 25 Milligram By Mouth 2 times a day Contact prescribing physician if questions or concerns Unchanged cetirizine (Zyrtec) 10 Milligram By Mouth As needed for Allergy symptoms Contact prescribing physician if questions or concerns Unchanged lisinopril 5 Milligram By Mouth Every day Contact prescribing physician if questions or concerns Unchanged wheat dextrin (Benefiber) By Mouth Every day Contact prescribing physician if questions or concerns Allergies Versed (Rash) contrast media (gadolinium-based) (Rash, Cough) fentaNYL (Rash) Problems Ongoing - Any problem that you are currently receiving treatment for. Abdominal cramping Abdominal pain Acid reflux Diarrhea Dysphagia Heartburn Mixed irritable bowel syndrome Nausea RUQ pain Education Materials Food Choices for Gastroesophageal Reflux Disease, Adult When you have gastroesophageal reflux disease (GERD), the foods you eat and your eating habits are very important. Choosing the right foods can help ease the discomfort of GERD. Consider working with a dietitian to help you make healthy food choices. What are tips for following this plan? Reading food labels ? Look for foods that are low in saturated fat. Foods that have less than 5% of daily value (DV) of fat and 0 g of trans fats may help with your symptoms. Cooking ? Cook foods using methods other than frying. This may include baking, steaming, grilling, or broiling. These are all methods that do not need a lot of fat for cooking. ? To add flavor, try to use herbs that are low in spice and acidity. Meal planning ? Choose healthy foods that are low in fat, such as fruits, vegetables, whole grains, low-fat dairy products, lean meats, fish, and poultry. ? Eat frequent, small meals instead of three large meals each day. Eat your meals slowly, in a relaxed setting. Avoid bending over or lying down until 2?3 hours after eating. ? Limit high-fat foods such as fatty meats or fried foods. ? Limit your intake of fatty foods, such as oils, butter, and shortening. ? Avoid the following as told by your health care provider: ? Foods that cause symptoms. These may be different for different people. Keep a food diary to keep track of foods that cause symptoms. ? Alcohol. ? Drinking large amounts of liquid with meals. ? Eating meals during the 2?3 hours before bed. Lifestyle ? Maintain a healthy weight. Ask your health care provider what weight is healthy for you. If you need to lose weight, work with your health care provider to do so safely. ? Exercise for at least 30 minutes on 5 or more days each week, or as told by your health care provider. ? Avoid wearing clothes that fit tightly around your waist and chest. ? Do not use any products that contain nicotine or tobacco. These products include cigarettes, chewing tobacco, and vaping devices, such as e-cigarettes. If you need help quitting, ask your health care provider. ? Sleep with the head of your bed raised. Use a wedge under the mattress or blocks under the bed frame to raise the head of the bed. ? Chew sugar-free gum after mealtimes. What foods should I eat? Eat a healthy, well-balanced diet of fruits, vegetables, whole grains, low-fat dairy products, lean meats, fish, and poultry. Each person is different. Foods that may trigger symptoms in one person may not trigger any symptoms in another person. Work with your health care provider to identify foods that are safe for you. The items listed above may not be a complete list of recommended foods and beverages. Contact a dietitian for more information. What foods should I avoid? Limiting some of these foods may help manage the symptoms of GERD. Everyone is different. Consult a dietitian or your health care provider to help you identify the exact foods to avoid, if any. Fruits (more content not included)... Normal [facility] Gastroenterology Office/Clin ic Noteon 05-04-2023 Gastroenterology Office/Clinic Note Chief Complaint Reflux, diarrhea and cramping improved. HPI Staff This is a 47 year old female who presents today for a follow-up from 01/13/23 office visit for mixed IBS, acid reflux, RUQ pain and dysphagia. History of Present Illness Patient is a 47-year-old female who presents for follow-up. Patient was previously evaluated 01/2023 and had reports of dysphagia, RUQ pain, and diarrhea. Patient with PMH of HTN?managed by patient's PCP. Patient was previously evaluated by Dr. Ambrose 11/2020 for abdominal cramping, diarrhea, and RLQ abdominal pain. Note previously indicated patient was diagnosed with IBS with constipation treated with fiber, probiotics, and IBgard. Previous colonoscopy 09/2020 revealed normal terminal ileum, hemorrhoids and is due for repeat in 2030. Previous EGD 07/2020 revealed normal esophagus, normal stomach, normal duodenum. Previous gastric emptying study in 2019 was normal. Previous ultrasound of RUQ 09/2020 was negative. Patient had previously reported during visit with me in 12/2022 that she has been experiencing abdominal cramping with explosive diarrhea that improved following back adjustment with chiropractor. Patient reported previous EGD at outside facility in 2018 that showed reported precancerous cells in stomach?no results available to review during today's encounter. Patient previously reported RUQ pain described as achy over the last 4 months without regard to food. Patient was ordered CBC/CMP, EGD, stool testing to evaluate for infectious process. Had discussed treatment with PPI?patient declined trying PPI medication. Stool testing 12/2022 was negative for infectious process and negative for ova/parasites. Previous labs 12/2022 revealed normal H&H, normal BUN, normal creatinine. EGD completed 12/28/2022 revealed normal esophagus?dilated, normal gastric mucosa, normal duodenum, fundus biopsy revealed no significant pathologic changes, gastric body biopsy revealed no significant pathologic changes, incisura biopsy revealed no significant pathologic changes, antrum biopsy revealed no significant pathologic changes, negative for H. pylori. Patient reported during visit with me in 01/2023 that RUQ pain had improved and was occurring intermittently. She reported her acid reflux was occurring less often and was eating smaller portions. She reported she was not having any improvement in difficulty swallowing since EGD with dilation and was having difficulty swallowing solids 3-4 times a week. She reported her diarrhea had improved and was occurring less often. She reported RUQ pain improved with improvement in bowels. She was currently taking 1 tablespoon of Benefiber daily that had improved consistency of her stool. She reported having 4 bowel movements a week that were primarily formed. Had discussed modified barium swallow and x-ray of esophagus to further evaluate dysphagia?patient declined further testing. Patient was also educated regarding use of probiotics and IBgard as needed. During today's visit, patient reports she has not been consistent with benefiber. She explains when she takes Benefiber regularly, her symptoms will improve. She explains if she does not take Benefiber, she will have bloating, mid abdominal pain described as cramping, and fluctuating bowels between constipation and rare occasions of diarrhea. Is having difficulty swallowing solids for years- is not interested in further testing regarding. Reports rare occasions of LUQ and RUQ pain described as sharp and goes away on its own. Denies abdominal pain occurring with regard to food. Reports nausea at times that is triggered by coffee. She reports having heartburn 1-2 time a week depending on what she eats. Explains spicy foods trigger her heartburn. Denies further difficulty swallowing liquids. Is not taking probiotics daily or IBguard. Is having 1 BM every other day that are formed. Denies black/bloody stools, vomiting, and denies having any other GI complaints. Review of Systems ROS - Provider Constitutional: no fever, no chills. Skin: no Jaundice. ENMT: Yes dysphagia. Respiratory: no shortness of breath. Cardiovascular: no chest pain. Gastrointestinal: no nausea, no vomiting, rare diarrhea, no GI bleeding. Physical Exam Vitals & Measurements T: 36.4 ?C(Temporal Artery) HR: 79(Peripheral) BP: 110/75 HT: 62 in HT: 157 cm WT: 64.2 kg WT: 141.24 lb BMI: 26.05 General: Well developed, well nourished, in no acute distress Head: Normocephalic/atrauma tic Lungs: Normal respiratory effort and clear to auscultation Cardio: Regular rate and rhythm, normal S1 and S2, no murmur, no rub Abdomen: Soft, non-distended, non-tender. Normoactive bowel sounds present in all 4 abdominal quadrants, bilaterally. Mental Status: Alert and oriented x3. Normal mood and affect Assessment/Plan 1. Heartburn (R12: Heartburn) Previous EGD 07/2020 revealed normal esophagus, normal stomach, normal duodenum. Previous gastric emptying study in 2019 was normal. Previous labs (more content not included)... Normal [facility] Comment on above: Result Comment: Elec tronically Signed By: John FARIA, Jessica Rojas\.br\Date and Time Signed: 05/04/23 12:42 EDT Patient Educationon 05-04-20 Patient Education Gastroenterology Food Choices for Gastroesophageal Reflux Disease, Adult When you have gastroesophageal reflux disease (GERD), the foods you eat and your eating habits are very important. Choosing the right foods can help ease the discomfort of GERD. Consider working with a dietitian to help you make healthy food choices. What are tips for following this plan? Reading food labels ? Look for foods that are low in saturated fat. Foods that have less than 5% of daily value (DV) of fat and 0 g of trans fats may help with your symptoms. Cooking ? Cook foods using methods other than frying. This may include baking, steaming, grilling, or broiling. These are all methods that do not need a lot of fat for cooking. ? To add flavor, try to use herbs that are low in spice and acidity. Meal planning ? Choose healthy foods that are low in fat, such as fruits, vegetables, whole grains, low-fat dairy products, lean meats, fish, and poultry. ? Eat frequent, small meals instead of three large meals each day. Eat your meals slowly, in a relaxed setting. Avoid bending over or lying down until 2?3 hours after eating. ? Limit high-fat foods such as fatty meats or fried foods. ? Limit your intake of fatty foods, such as oils, butter, and shortening. ? Avoid the following as told by your health care provider: ? Foods that cause symptoms. These may be different for different people. Keep a food diary to keep track of foods that cause symptoms. ? Alcohol. ? Drinking large amounts of liquid with meals. ? Eating meals during the 2?3 hours before bed. Lifestyle ? Maintain a healthy weight. Ask your health care provider what weight is healthy for you. If you need to lose weight, work with your health care provider to do so safely. ? Exercise for at least 30 minutes on 5 or more days each week, or as told by your health care provider. ? Avoid wearing clothes that fit tightly around your waist and chest. ? Do not use any products that contain nicotine or tobacco. These products include cigarettes, chewing tobacco, and vaping devices, such as e-cigarettes. If you need help quitting, ask your health care provider. ? Sleep with the head of your bed raised. Use a wedge under the mattress or blocks under the bed frame to raise the head of the bed. ? Chew sugar-free gum after mealtimes. What foods should I eat? Eat a healthy, well-balanced diet of fruits, vegetables, whole grains, low-fat dairy products, lean meats, fish, and poultry. Each person is different. Foods that may trigger symptoms in one person may not trigger any symptoms in another person. Work with your health care provider to identify foods that are safe for you. The items listed above may not be a complete list of recommended foods and beverages. Contact a dietitian for more information. What foods should I avoid? Limiting some of these foods may help manage the symptoms of GERD. Everyone is different. Consult a dietitian or your health care provider to help you identify the exact foods to avoid, if any. Fruits Any fruits prepared with added fat. Any fruits that cause symptoms. For some people this may include citrus fruits, such as oranges, grapefruit, pineapple, and jeff. Vegetables Deep-fried vegetables. [place] Islander fries. Any vegetables prepared with added fat. Any vegetables that cause symptoms. For some people, this may include tomatoes and tomato products, chili peppers, onions and garlic, and horseradish. Grains Pastries or quick breads with added fat. Meats and other proteins High-fat meats, such as fatty beef or pork, hot dogs, ribs, ham, sausage, salami, and gtz. Fried meat or protein, including fried fish and fried chicken. Nuts and nut butters, in large amounts. Dairy Whole milk and chocolate milk. Sour cream. Cream. Ice cream. Cream cheese. Milkshakes. Fats and oils Butter. Margarine. Shortening. Ghee. Beverages Coffee and tea, with or without caffeine. Carbonated beverages. Sodas. Energy drinks. Fruit juice made with acidic fruits, such as orange or grapefruit. Tomato juice. Alcoholic drinks. Sweets and desserts Chocolate and cocoa. Donuts. Seasonings and condiments Pepper. Peppermint and spearmint. Added salt. Any condiments, herbs, or seasonings that cause symptoms. For some people, this may include saez, hot sauce, or vinegar-based salad dressings. The items listed above may not be a complete list of foods and beverages to avoid. Contact a dietitian for more information. Questions to ask your health care provider Diet and lifestyle changes are usually the first steps that are taken to manage symptoms of GERD. If diet and lifestyle changes do not improve your symptoms, talk with your health care provider about taking medicines. Where to find more information ? [employer] G[employer]intestinal [employer]: aboutgerd.org Summary ? When you have gastroesophageal reflux di (more content not included)... Normal [facility] 04-12-2023 FABIANA Telephone (NECVS8) MARIANNA RAMIREZ ([id number]) 1975 F Date Time Provider Department 04/12/23 ALICIA BOLIVAR [id number] During your visit today, we [facility] the following [facility] [place] 11:59 AM Signed CV PHONE Name of caller : Marianna Relationship to patient : Self If not self Will need patient permission to release results or disclose health information with called documented in fyi. Patient identified by Name and Date of . ( Marianna Ramirez, 1975). Yes Number to return call [phone] Reason for Call: Patient Question/Update: Mraianna is calling to say she developed an allergy to contrast and cannot have MRI W/WO. Also she would like to know if she can have it done locally. Please call. Thank you calling [facility]. You will receive a return call within 48 hours ( or 2 business days if close to the weekend). If you feel that this is an urgent issue and needs immediate attention, it is recommended that you contact your primary care provider office or proceed to your nearest Urgent Care Center of Emergency Room ED for evaluation/treatment. Jatinder Valle RN 04/14/2023 10:17 AM Signed Called patient. She states that she has had several MRIs with reactions. The first they noted a possible allergy and the second she was treated with 24 hour premedication and after the MRI had coughing, throat closing, and trouble breathing. They have recommended for her to never have another MRI. Discussed this RN spoke with Dr. Bolivar yesterday and he confirmed that a MRI w/o is unlikely to show an asymptomatic DVA. Therefore he recommends following the patient symptomatically. Patient agrees and states that she had not had any many symptom changes. Two weeks ago she did have a brief period of bilateral blurry vision and self resolved, and it has not reoccurred. She will follow up with her PCP for that and call us with any questions or future change in symptoms. Patient agrees. Jatinder Valle RN Allergies As of Date: 04/12/2023 (No Known Allergies) Date Reviewed: 06/21/2018 Reviewed by: Charles Gutierrez (Devora), DEVORA - Fully Assessed Reason for Visit: Question and update [Other] Prescriptions as of 04/14/2023 - iv contrast (will be provided with radiology test) MRI Brain Inject, intravenously, once for 1 dose.No IV access, insert saline lock prior to beginning of sedation, infusion, injection of imaging exam.Discontinue saline lock post exam. If Pt. has a central line or IVAD, may access for administration according to line specific nursing protocol.Once exam is complete flush line and de-access according to line specific nursing protocol in the MR contrast administration guidelines link - CETIRIZINE HCL (ZYRTEC ORAL) Take by mouth. - carvedilol (COREG) 25 mg tablet Take 25 mg by mouth twice daily with meals. - lisinopril (ZESTRIL, PRINIVIL) 5 mg tablet Take 5 mg by mouth once daily. - Omeprazole 40 mg capsule Take 40 mg by mouth once daily. Problem List As Of Date 04/12/2023 Noted Resolved Pain in joint, multiple sites [M25.50] 05/21/2016 Family history of rheumatoid arthritis [Z82.61] 05/21/2016 Family history of lupus erythematosus [Z84.0] 05/21/2016 Myalgia [M79.10] 05/21/2016 Numbness and tingling sensation of skin [R20.0,*05/21/2016 Fibromyalgia [M79.7] 05/21/2016 Joint stiffness of multiple sites [M25.60] 05/21/2016 Encounter Status:Closed by JATINDER VALLE on 04/14/23 Normal [facility] Provider Letteron 01-28-2023 Provider Letter January 28, 2023 MARIANNA RAMIREZ [address] [place] [id number] : 1975 Dear Marianna , We have been trying to reach you with no success. It is important that you return our call regarding your ultrasound results upon receiving this letter. Also, at the time of your call, please provide us with your current information. Thank you for your prompt attention to this matter. Sincerely, [facility] [phone] Normal [facility] RAD - Ultrasound Reporton RAD - Ultrasound Report [id number]:127 Normal [facility] Gastroenterology Office/Clin ic Noteon 01-13-2023 Gastroenterology Office/Clinic Note Chief Complaint Diarrhea, cramping, reflux. HPI Staff Patient is a 47 year old male here today to review EGD results. Patient states that the RUQ pain has improved and is intermittent. Diarrhea is the same and reflux has improved. History of Present Illness Patient is a 47-year-old female who presents for follow-up from EGD with dilation completed 12/28/[address] Ambrose. Patient was previously evaluated 12/21/2022 for reports of nausea, abdominal cramps, diarrhea, and RUQ pain. Patient with PMH of HTN?managed by patient's PCP. Patient was previously evaluated by Dr. Ambrose 11/2020 for abdominal cramping, diarrhea, and RLQ abdominal pain. Note also indicated at that time patient with constipation and LLQ pain was previously diagnosed with IBS with constipation. Patient was previously treated with fiber, probiotics, and IBgard. Previous colonoscopy 09/2020 revealed normal terminal ileum, hemorrhoids and is due for repeat in 2030. Previous EGD 07/2020 revealed normal esophagus, normal stomach, normal duodenum. Previous gastric emptying study in 2019 was normal. Previous ultrasound of RUQ 09/2020 was negative. Patient reported during visit with pa 12/2022 that over the last 4 months she has been experiencing abdominal cramping with explosive diarrhea that had improved following back adjustment with chiropractor. She had reported having no bowel movement for 4 days, then 1 formed bowel movement yesterday. Patient reported previous EGD at outside facility in 2018 that showed reported precancerous cells in stomach?no results available to review during today's encounter. Patient reported having RUQ pain described as achy over the last 4 months that was occurring 2-3 times a week without regard to food. She also reported having nausea daily for years that had improved. She also explained having acid reflux and pressure in esophagus for years and occasionally food will get stuck in esophagus. Patient was ordered CBC/CMP, EGD, stool testing to evaluate for infectious process. Had discussed treatment with PPI?patient declined trying PPI medication at this time. Stool testing completed 12/2022 was negative for infectious process and negative for ova/parasites. Previous labs 12/2022 revealed normal H&H, normal BUN, normal creatinine. EGD completed 12/28/2022 revealed normal esophagus?dilated, normal gastric mucosa, normal duodenum, fundus biopsy revealed no significant pathologic changes, gastric body biopsy revealed no significant pathologic changes, incisura biopsy revealed no significant pathologic changes, antrum biopsy revealed no significant pathologic changes, negative for H. pylori. During today's visit, patient reports her RUQ pain has improved and is occurring intermittently. She also explains her acid reflux that is occurring less often. She explains she is eating smaller portions that is helping her acid reflux. She reports having indigestion that occurs 2 times a week. Patient reports she does not want to try PPI for acid reflux or indigestion. Patient explains she is not having any improvement in difficulty swallowing since EGD with dilation. Is still having difficulty swallowing solids that occurs 3-4 times a week. She explains bread and fries are triggers of difficulty swallowing. Patient reports diarrhea has improved- is occurring less often. Is having diarrhea 1 time a week, was previously occurring daily. Reports RUQ pain has improved with improvement in her bowel habits. Is currently taking 1 tablespoon of benefiber daily that has improved consistency of her stool- more formed. Explains with IBS, she has always had mixture of constipation/diarrhea . Is having 4 BMs a week, primarily formed. Denies black/bloody stools, fevers/chills, nausea/vomiting, and denies having any other GI complaints. Review of Systems PHQ Score Initial Depression Screen Score: 0 ROS - Provider Constitutional: no fever, no chills. Skin: no Jaundice. ENMT: Yes dysphagia- see HPI for details regarding. Respiratory: no shortness of breath. Cardiovascular: no chest pain. Gastrointestinal: no nausea, no vomiting, no diarrhea, no GI bleeding. Physical Exam Vitals & Measurements T: 36.2 ?C(Temporal Artery) HR: 71(Peripheral) BP: 107/74 HT: 62 in HT: 157 cm WT: 65.4 kg WT: 143.88 lb BMI: 26.53 General: Well developed, well nourished, in no acute distress Head: Normocephalic/atrauma tic Lungs: Normal respiratory effort and clear to auscultation Cardio: Regular rate and rhythm, normal S1 and S2, no murmur, no rub Abdomen: Soft, non-distended, non-tender. Normoactive bowel sounds present in all 4 abdominal quadrants, bilaterally. Mental Status: Alert and oriented x3. Normal mood and affect Assessment/Plan 1. Dysphagia (R13.10: Dysphagia, unspecified) No improvement following EGD with dilation. EGD with dilation completed 12/28/2022 revealed normal esophagus?dilated, normal gastric mucosa, normal duodenum, fundus biopsy revealed no significant pathologic changes, gastric (more content not included)... Normal [facility] Comment on above: Result Comment: Acacia marcelino Signed By: Jessica Lopez CNP.sumit\Date and Time Signed: 01/13/23 10:40 EDT Patient Educationon 01-14-20 Patient Education ENT Dysphagia Dysphagia is trouble swallowing. This condition occurs when solids and liquids stick in a person's throat on the way down to the stomach, or when food takes longer to get to the stomach than usual. You may have problems swallowing food, liquids, or both. You may also have pain while trying to swallow. It may take you more time and effort to swallow something. What are the causes? This condition may be caused by: ? Muscle problems. These may make it difficult for you to move food and liquids through the esophagus, which is the tube that connects your mouth to your stomach. ? Blockages. You may have ulcers, scar tissue, or inflammation that blocks the normal passage of food and liquids. Causes of these problems include: ? Acid reflux from your stomach into your esophagus (gastroesophageal reflux). ? Infections. ? Radiation treatment for cancer. ? Medicines taken without enough fluids to wash them down into your stomach. ? Stroke. This can affect the nerves and make it difficult to swallow. ? Nerve problems. These prevent signals from being sent to the muscles of your esophagus to squeeze (contract) and move what you swallow down to your stomach. ? Globus pharyngeus. This is a common problem that involves a feeling like something is stuck in your throat or a sense of trouble with swallowing, even though nothing is wrong with the swallowing passages. ? Certain conditions, such as cerebral palsy or Parkinson's disease. What are the signs or symptoms? Common symptoms of this condition include: ? A feeling that solids or liquids are stuck in your throat on the way down to the stomach. ? Pain while swallowing. ? Coughing or gagging while trying to swallow. Other symptoms include: ? Food moving back from your stomach to your mouth (regurgitation). ? Noises coming from your throat. ? Chest discomfort when swallowing. ? A feeling of fullness when swallowing. ? Drooling, especially when the throat is blocked. ? Heartburn. How is this diagnosed? This condition may be diagnosed by: ? Barium swallow X-ray. In this test, you will swallow a white liquid that sticks to the inside of your esophagus. X-ray images are then taken. ? Endoscopy. In this test, a flexible telescope is inserted down your throat to look at your esophagus and your stomach. ? CT scans or an MRI. How is this treated? Treatment for dysphagia depends on the cause of this condition: ? If the dysphagia is caused by acid reflux or infection, medicines may be used. These may include antibiotics or heartburn medicines. ? If the dysphagia is caused by problems with the muscles, swallowing therapy may be used to help you strengthen your swallowing muscles. You may have to do specific exercises to strengthen the muscles or stretch them. ? If the dysphagia is caused by a blockage or mass, procedures to remove the blockage may be done. You may need surgery and a feeding tube. You may need to make diet changes. Ask your health care provider for specific instructions. Follow these instructions at home: Medicines ? Take bzee-enk-hweocpb and prescription medicines only as told by your health care provider. ? If you were prescribed an antibiotic medicine, take it as told by your health care provider. Do not stop taking the antibiotic even if you start to feel better. Eating and drinking ? Make any diet changes as told by your health care provider. ? Work with a diet and technical operations specialist (dietitian) to create an eating plan that will help you get the nutrients you need in order to stay healthy. ? Eat soft foods that are easier to swallow. ? Cut your food into small pieces and eat slowly. Take small bites. ? Eat and drink only when you are sitting upright. ? Do not drink alcohol or caffeine. If you need help quitting, ask your health care provider. General instructions ? Check your weight every day to make sure you are not losing weight. ? Do not use any products that contain nicotine or tobacco. These products include cigarettes, chewing tobacco, and vaping devices, such as e-cigarettes. If you need help quitting, ask your health care provider. ? Keep all follow-up visits. This is important. Contact a health care provider if: ? You lose weight because you cannot swallow. ? You cough when you drink liquids. ? You cough up partially digested food. Get help right away if: ? You cannot swallow your saliva. ? You have shortness of breath, a fever, or both. ? Your voice is hoarse and you have trouble swallowing. These symptoms may represent a serious problem that is an emergency. Do not wait to see if the symptoms will go away. Get medical help right away. Call your local emergency services (911 in the [place] Do not drive yourself to the hospital. Summary ? Dysphagia is trouble swallowing. This condition occurs when solids and liquids stick in a person's throa (more content not included)... Normal [facility] Lab Reportson 01-12-2023 Lab Reports [id number]#1 .00CD:127 [facility] Lab Reportson 01-07-2023 Lab Reports [id number]#1. 00CD:127 [facility] IntraOperative Documentson 0 01-01-2023 IntraOperative Documents [id number] #1.00CD:127 [facility] Postoperative Documentson Postoperative Documents [id number]# 1.00CD:127 [facility] Coding Summary.on 12-30-2022 Coding Summary. CD:[id number] W w+PGhlYWQ+VS9FFVPfC75 rbXLzeK0eY2SJKJzRHsix HCRLDPmTSeOxzcJdZI4kk XNjZXJu IC8+XW6uMERqFuvctXUwz 8W4gMS6U79tpi7sCMymeY Y7NDJiQrTmlsgrs5ibrFg 6IDcuNmluOyBt JBFjzQ35LGQ8hB47Ef92o TSxvOXyj6hzpQt8ClYwLX SnVPD4xIxlXXznd9JhTZO lA92gzJOce1R5 XOGatCjkyQSdHpUtfXV2r F4jCKktefexk5epkhqqSy p3za27fOBib7X8qON6E2K xluA5RXHlyVHx IkgxjRDPyL2hruang2rpj xooUxJcWMKkTTo8RCw8KY UluZssTzCvTQ75OTK5KRT flfBpL2OdWRGl hLnhKrC5u5W5Nq5HM7VBO mocO7MPUNMFSVqadYA+PC 67tv83F6ZmQcpzHrd5NHV kFPT8lXC5mT4f TTNpPKhfv2Q8qTS7L8Znl xNdfr9od7gnTXObDVmaR5 1wvFVso8M7FMQztAD4RXK znMmkLxWgtX88 Oyc+TRFpxPshk5EmVvdbj 4ieu8qdfEq0UcewWQAaaq EnzOuhCWS5i5IqRl1jBMP zpQS7vJA3wP9i RoBxWsL0SDguI145VzYtu HKoNcsxX92xE1BteAH+PH GmKyt1BBIhmDcgOF3kX4Y hZGRpbmctbGVm vZuiLO9rUYFnttboGIEpo K7tWRLuW3n6HxEzLtT6CC ojW0RbKUGiajtdWc22qS9 pFvGlIaB3VPja B9AostO3BFSfxMDjHBtvH RX9Y96qf9Y1WLRuYELvLL C8xVH4mW7dcVgepvhrsYR mdDsgdmVydGlj MHxpFKbwG904HLMatGetC kNvZGluZyBEYXRlOiAgMD QvMjYvMjAyMzwvdGQ+PHR bFXD3wNcdUJBx uQMaVHpiNh3zjIfecWwhO Q3sWJFwxxcyCCPeqD5qFO JmeUOcsLusYV6xGUVmfry uu563YsXsZBJ3 PIHstRZoM6HtjG1uZpQbA XRmGSMtX3DwgPYfFZtsJ0 86UBwdTtX0UOIzocPwX5M sLWFsaWduOiB0 a0T9Zt2Ey3KmkiwrX3Llx LXsXcZbJvenKEw0T4XvWk wvdHI+UH49NOKmLY20JZn 8NTX0zDtxSDux GHQuT6NttU6dQbYxRLBgS GRkOyc+PHRhYmxlIHdpZH RoPScxMDAlJyBzdHlsZT0 bGo1wNOXpTCFl oBqtjOSwTdXlg2kaZPZzN EgeST7ypBefA0WymHN9KT Yxf5x6Hg85K10bB4SbdZM +RLLcvBH2aVG9 tQ3nPlNzDyI2EKriA667W qDofBZtTjjav8ezv3iqzE x3TaF0DIJctdNfwAioREQ 9b9UwWv20J90n IHdpZHRoPSIxNSUiIHZhb Zdjzq9svU0oOk8+PGNvbC I9hNL8eC4wKvQgDzX3IXm fY263QaNuoAAw Vdlhw8fng9komHw8ArEnO HFqswXucMcxDTJ0j6EsQs 32D3RayPnnp4OqGhd7fh7 2oAVde2A7nIB9 S2VpSLWkrhqpuWPeqZrjJ O6gSPVdgbpsRKNtiE7jRW RjU2u5QsIaFkB8LOhlQ1K skhR3GTPuiILc NPGeyFEFyS6kqocon6yrh zbxZmRgLZXcSPm0KVm0WB GdcVatZmWhQUF9ZbD6OAG 4sTFcnK9rpYuj jtljqI6bNyt+EIT3yTKwb TQTXB5fSvophKW+PHRkIH P4mWoyPEziQFFgjI1gRFK jO6b3LdWaTmV7 IZjiY9YiorU5IQEnaTOaL OJqvODVnT6nmbiia1dvcm ckSrArUOMqZTu4HGj1IWV saWduOiBsZWZ0 WgJ6HZM9bRZyeO9pjOrbc lrgsK4lPcs+QmlydGggRG G5PDs9X6MbGuj2USHinPf gYS1tmHGuTGgr Ao4feEwxlWriUX4vIAPkk tjpr398ToIsi1noJCQlwY WfRQctOKE5G13hv5X3BBU rQXCdXPP5zRA4 zL7mpPrivcfijPGhmGcof zCgbQjlHGcqQHdzM162CO MsdVqbGqHtPLo6O0UaWor 2YJUibLmdPZ8m qBRwGQfuRf0ycFbrpEuoP R2zSNMvpznsu984OiPvc8 evUBNpuKItTEdbFNN0G33 ec3Z5UGYqJYHe LOB8tVM1bK9bmIszjxiho GVmdDsgdmVydGljYWwtYW uuF750ELVmsIwgWhVvsDy 0X4ZiPoz1XAIe gEdzHN0luCQyDRlaGa0hp NfwwJtmNA8vVALxabpgt3 18AmRrb8djYEWjaOTfOAm lJOH3C89by4S5 LSIfKZIdETQ6yXX5vR3zn GlnbjogbGVmdDsgdmVydG ikWYvrYLasG974YZXfpNd nPlBhdGllbnQg LNpsVEw7R7ZgMjntkXR+P D31KANlKR72pUGcbNQrq1 hgyFz4CaThLJYdMTF4hZx qCYqge0BcKUCw B03ytZYhf1M5QPJztIkje UXaBuSzyFP3lP7zVYogji eyy9dqdaryWyxao2zvja0 4aQ41J91lRThb ZHRoPSIzMCUiIHZhbGlnb d8ibX9wKw8+DULajEJ0iI Q1fS0fINAkBtG1MEgxX87 9InRvcCIvPjxj l8owm6vwbYb4MvO6NBKwu aVppPlaCXV6v5MxEm36C1 9sIHdpZHRoPSIyMCUiIHZ llQyone6jmY0h Ii8+JZDhuTA3kHE7oA5iU qAaPhS0FDqgD432DpWzcR OpAuswZ81fT0AiaSK+PHR tVap3SWExfExv YY9rvVDgZMbnIi3dXVK2V tFvKcTyIJvmJ3LdXCGurl rdoorfcZW0SXEcUTUdbJ5 1Tj1djSihUXSq bDOUwR8aimsdl9yqkqbsQ nZtOZMqOUf3MKq2XLAhyC ydXxUyBBZ7AyS4WHR4iCD zuS4xdHxfdzru sX4rF5EjYOIsvwxrUv52j G2vVcSsRaP6WLblRdn+UF LYHlUIANzlSAhNN2AAFD5 8LZ78vMWsu3L6 uXC7C0CjVPEkcwdbagfqw EX4BNUoFMHguX21dMTfCK bmMn0tv1S0q855ENVhUTO dnT64Hn4wjEgc OLTtdEODpO5mcjwez2zpc ehtMoWdWNTjALu0OUt1XL IfiNhaQoUvIEC3IaW5BJK 1qUFglQ5qzDja opzvwS0rRkn+MDkvMDMvM Ng1VLmmaPT+MJLvJFB8yO zkJNoeAVFkkL4uTCDyZ9s 3IePiRmX7RTqf T5KtHPXpullbIn02yI2vL eRaEyK8PLwsD3NpynL6GU VesZDxFXmfMRJ9Q80yy0B 8HFFiPEDnWJU0 jRN6fH6xyPbjkvgtoPDhg DsgdmVydGljYWwtYWxpZ2 84QDCjrYjhUhG9WFgzNNZ ySE36PF27mTCc s3Z6lSI4K8VkVFFtdobcy qexdVX4CNPqHHXahP54rZ SyNSezPq5xe7S0f772XML aAFFydV80Ji7q oDnoOOHpwKDYzG8pnnnih 8psttikLpCiYPEoALw0LB e9ZKTbdNqjJvZsSUI6KtB 2YLZ5oCNjtD0o yHhznqpktH8nAny+RmVtY DmkDQ94SF90rIKvk2M6lF P7R1MeINXiiadpzvyhnTE 6DVXmFVYniG09 uRKtKCktZa0vr6R3x221T VCdQXSnbK26Xo6ddYwnHP IluCUBhF5cwxhxw3fwdjl gIzAwMDAwMDt0 BTk6UKUdjWcnPoCdCGB5X aN7XPR1nZZzrT5utJxnay iilQ7wWol+W4L9xGI5zSJ udDwvdGQ+PC90 jx24A7KhFycjSvk9TNVmG AG9sJC3uL4uWDLiYHoog6 X1cEF8Z0IfopSwtp0ww7x qBGZwLHmiT46b rLEpn7Y8RUIvjSV4EEEto DwwWwRxsY93Lhh+PGNvbG iha1DdOynix5kog5tdnIy 9IjMwJSIgdmFs oYurKPS5x4TzZy92V12tP HdpZHRoPSIzMCUiIHZhbG zdjt0auU0gVs4+PGNvbCB 7eIC7yR3nKzTd BcX1ZCcbF849WlFazDMuU kfkr5mft6lteCg2ItIyTZ ZuulKcxVuaPHY6y3BxYa2 6X5KioSsyh0Fv Ttu2js18sZYue5Z1yNE8W 3BhZGRpbmctbGVmdDogMC 8mOALmdubqIXXllS7bYLC hH2l5QeQmSpS1 BTgsJ3TdoiC5ZOZefSDsA NKypLHFlT8flxrnu8vcrv mmZbGfVZOuWJq8YRp9YRO saWduOiBsZWZ0 NbR5CWG1aIBmuK9zxOqef zrmlQ6lAxy+DLj7x0xfuS SlOZ3klTS7EF04JX95aJM ws6Y4uGU8Z4Iu VEPhledycarhrCE7IHBrE MTphJ49Qu9yuKglEv8cCK KmMSA1KYTzaTEzI0RdaV5 yOiAjMDAwMDAw F4MbjLRsVMycZ651JMgnG uA5RFZbfqStW1UxCNZuuQ jrBfU4x9P6An5FRW81HB2 9XL67xLDyh8N1 bHP4Z8CdVXKvueoiivizh OW2OXLzDWZhzK78Sn1zoI syXx8uVMZuPWH5FGIinKY sA7ZfeQ8tFfTe BFHzYFGpO4XmaAPxGQfvH 583YMpkJwO6NCKcetUkH3 YzMJDxmXnyYzG8b2W9We5 NSp23KN00XC66 dIMjg7Q4sUF4Y8EmZTOok ahtrwnibYG1ZFOlWBRzhS 67Ma0siFfxVa2bSMCdGKL 6ZXZuhFKbS9Mu eT9gNbZmKRUiTNAgN3Nda ALkTJnuZ538GGxwJxH6OW WqoaIhO2MdXZFhsMdnSqE 1e9D1Ym4MJMyx mer0A6EhXdgwcJR+PC90Y JJcEK07cIUceWWfb9cfwJ j0MqGoRFMgYGM0ePkqVJs ag3LmIFJwF85x yNOde1L5 (more content not included)... Normal [facility]enton 12-30-2022 Consent [id number]# 1.00CD:127 Normal [facility] Discharge Instructionson Discharge Instructions [id number]# 1.00CD:127 Normal [facility] OVA AND PARASITE EXAMINATION on 12-30-2022 Ova + Parasite Exam Final report Normal [facility] Comment on above: Result Comment: Thes e results were obtained using wet preparation(s) and trichrome stained smear. This test does not include testing for Cryptosporidium parvum, Cyclospora, or Microsporidia. Performed By: #### C BC #### [facility] [address], [place] [address] Dr. Belkis Ascencio Result 1 Comment Normal [facility] Comment on above: Result Comment: No o va, cysts, or parasites seen. . One negative specimen does not rule out the possibility of a parasitic infection. Performed By: #### C BC #### [facility] [address] [place] [address] [address] Belkis Ascencio Main OR Intraoperative Recor don 12-29-2022 Main OR Intraoperative Record IntraOp Document Type FT Summary Primary Physician: Petty AMBROSE MD Finalized Date/Time: 12/29/22 13:14:21 Pt. Name: MARIANNA RAMIREZ/Sex: 1975 Female Med Rec #: [id number] Physician: Petty AMBROSE MD Financial #: [id number] Pt. Type: O Room/Bed: / Admit/Disch: 12/28/22 09:20:45 - 12/28/22 23:59:59 Institution: Case Times FT Entry 1 Patient Times In Room 12/28/22 10:27:00 Out Room 12/28/22 10:40:00 Procedure Times Start 12/28/22 10:30:00 Stop 12/28/22 10:34:00 Anesthesia Times Start 12/28/22 10:27:00 Stop 12/28/22 10:40:00 Last Modified By: Radha Floyd CST 12/29/22 13:14:18 General Comments: 12/29/22 Chart opened to review and send charges LRoth CSFA Case Attendance FT Entry 1 Entry 2 Entry 3 Case Attendee Guy CLINE, Frank Colon RN, Kalpesh Urrutia CST, Parvin Kearney Role Performed Anesthesiologist of [employer] Specialist - Primary Scrub - Primary Record Time In 12/28/22 10:27:00 12/28/22 10:27:00 12/28/22 10:27:00 Time Out 12/28/22 10:40:00 12/28/22 10:40:00 12/28/22 10:40:00 Procedure EGD(.) EGD(.) EGD(.) Comments Last Modified By: Kalpesh Colon RN, RN, Kalpesh Renee RN 12/28/22 10:41:56 12/28/22 10:41:56 12/28/22 10:41:56 Entry 4 Entry 5 Case Attendee MONSERRAT CLINE, Moni Iverson Role Performed Surgeon - Primary Staff - Other Time In 12/28/22 10:27:00 12/28/22 10:34:00 Time Out 12/28/22 10:40:00 12/28/22 10:40:00 Procedure EGD(.) EGD(.) Comments Last Modified By: Kalpesh Colon RN, RN, Morgan E 12/28/22 10:41:56 12/28/22 10:41:56 Perioperative Protocols FT Pre-Care Text: Implements protective measures prior to operative or invasive procedure, confirms identity before the operative or invasive procedure, verifies operative procedure, surgical site, and laterality Entry 1 Procedure(s) EGD(.) Patient Identity Birthday, ID Band Verified (select at Check, Patient least 2): Participation Consents / H and P Anesthesia Consent, Operative Site N/A Verified HandP, Surgery/Procedure Marking Verified Consent Surgical Site No Laterality Verified n/a Verified Procedure Verified Yes Correct Patient Yes Position Verified Availability Equipment, Medication Prep Dry n/a Verified (If Applicable) PreOp Antibiotic No Time Out Frank Tovar MD Given Participants S., Kalpesh Colon RN, Schafer CST, MONSERRAT Carreno MD, Maher Time Out Complete 12/28/22 10:28:00 Outcomes Met? Yes Last Modified By: Kalpesh Colon RN 12/28/22 10:29:24 Post-Care Text: The patient is free from signs and symptoms of injury caused by extraneous objects Allergy Information FT Pre-Care Text: Verifies allergies Entry 1 Allergies Reviewed? Yes Allergies Reviewed Self/Patient With Outcomes Met? Yes Last Modified By: Kalpesh Colon RN 12/28/22 10:29:31 Post-Care Text: The patient received appropriate medication(s) safely administered during the perioperative period Surgical Procedures FT Entry 1 Procedure Description Procedure EGD Modifiers . Surgeon Description EGD with antral biopsy, gastric body biopsy, incisura biopsy and fundus biopsy. Dilation of esophagus using 58F foster dilator. Primary Procedure Yes Primary Surgeon Petty AMBROSE MD Start 12/28/22 10:30:00 Stop 12/28/22 10:34:00 Anesthesia Type General Surgical Service Gastroenterology Wound Class 2 - Clean-Contaminated Last Modified By: Kalpesh Colon RN 12/28/22 10:41:29 General Case Data FT Pre-Care Text: Classifies surgical wound, implements aseptic technique, initiates traffic control Entry 1 Case Information OR ENDO 1 FT Case Level Level 2 Wound Class 2 - Clean-Contaminated Specialty Gastroenterology ASA Class 2 Preop Diagnosis Right upper quadrant Postop Same As Preop No pain, Abdominal cramping, Dysphagia Postop Diagnosis Normal EGD. Outcomes Met? Yes Last Modified By: Kalpesh Colon RN 12/28/22 10:41:03 Post-Care Text: The patient is free from signs and symptoms of infection Skin Assessment (Pre Procedure) FT Pre-Care Text: Implements protective measures to prevent skin/ tissue injury due to thermal or mechanical sources Evaluates for signs and symptoms of physical injury to skin and tissue Entry 1 Skin Integrity Dry, Warm Skin Abnormality No Outcomes Met? Yes Last Modified By: Kalpesh Colon RN 12/28/22 10:30:14 Post-Care Text: The patient is free from signs and symptoms of injury caused by extraneous objects Patient Positioning FT Pre-Care Text: Identifies physical alterations that require additional precautions for procedure-specific positioning, verifies presence of prosthetics or corrective devices, positions the patient, evaluates the patient for signs and symptoms of injury as a result of positioning Entry 1 Procedure EGD(.) Body Position Lateral, right side up Feet Uncrossed? Yes Left Arm Position Resting at Side Right Arm P (more content not included)... Normal [facility] Consent for Treatmenton 12-06 Consent for Treatment [id number]#1 .00CD:127 Normal [facility] Endoscopic Procedure Report - Otheron 12-28-2022 Endoscopic Procedure Report - Other Patient: MARIANNA RAMIREZ Age: 47 years Sex: Female : 1975 Associated Diagnoses: None Author: Petty AMBROSE MD Pre-Procedure Procedure Date 12/28/2022 10:37:00 . Procedure Type: Esophagogastroduodeno scopy. Procedure provider Performed by Petty Ambrose MD. Current history and physical Documented on chart. Informed Consent After discussing the rationale, risks and benefits, and alternatives to this procedure, the patient provided signed consent for the procedure. Pre-procedure diagnosis: Dysphagia/ odynophagia. Right upper quadrant pain. Medications Anticoagulant/antipla telet No anticoagulation or antiplatelet. ASA Classification: Class II. . Monitoring: See anesthesia record. . Procedure The procedure was performed in the hospital. See anesthesia record for sedation given during procedure. The patient was positioned starting in the left lateral decubitus position and with safety measures. Endoscope type used was an adult-size, introduced orally, advanced to the 2nd portion of the duodenum. No difficulty was encountered during the procedure. Views were good. Gastric biopsies were taken of the fundus and of the antrum. The patient tolerated the procedure well. Findings 1. Normal esophagus, Z line at 40 cm, empiric esophageal dilation performed using 58 [place] Foster dilator 2. Normal gastric mucosa, random biopsies obtained from antrum, incisura, gastric body and fundus 3. Normal duodenum Images Procedure images: Rec_hd_video_ _[id number].jpg Rec_hd_video_[id number].jpg Rec1_hd_video_ _[id number].jpg Rec1_hd_video_[id number].jpg Rec1_hd_video_ _[id number].jpg Rec1_hd_video_ _[id number].jpg . Post-Procedure Complications: none. Estimated blood loss: none. Specimens: sent to pathology. Devices/ implants: none left in place. Impression and Plan 1. Normal esophagus, Z line at 40 cm, empiric esophageal dilation performed using 58 [place] Foster dilator 2. Normal gastric mucosa, random biopsies obtained from antrum, incisura, gastric body and fundus 3. Normal duodenum Recommendations: 1. Awaiting pathology report. 2. GI clinic follow-up in 2 weeks [facility] Comment on above: Result Comment: Elec tronically Signed By: Petty AMBROSE MD\.br\Date and Time Signed: 12/28/22 10:38 EDT Other Comment: Chaparrita howard Attachment - attachment storage system not supported [id number] Can be viewed in source systemMissing Attachment - attachment storage system not supported [id number] Can be viewed in source systemMissing Attachment - attachment storage system not supported [id number] Can be viewed in source systemMissing Attachment - attachment storage system not supported [id number] Can be viewed in source systemMissing Attachment - attachment storage system not supported [id number] Can be viewed in source systemMissing Attachment - attachment storage system not supported [id number] Can be viewed in source system Main OR PACU I Recordon 12-06 Main OR PACU I Record PACU Phase I Document Type FT Summary Primary Physician: Petty AMBROSE MD Finalized Date/Time: 12/28/22 11:26:29 Pt. Name: MARIANNA RAMIREZ/Sex: 1975 Female Med Rec #: [id number] Physician: Petty AMBROSE MD Financial #: [id number] Pt. Type: O Room/Bed: / Admit/Disch: 12/28/22 09:20:45 - Institution: Case Times PACU I FT Pre-Care Text: Identifies barriers to communication and implements measures to provide psychological support Develops individualized plan of care, and ensures continuity of care Maintains patient's dignity and privacy, and maintains patient confidentiality Identifies and reports philosophical, cultural, and spiritual beliefs and values Identifies individual values and wishes concerning care Implements aseptic technique, and administers prescribed antibiotic therapy and immunizing agents as ordered Evaluates postoperative tissue perfusion Implements thermoregulation measures, and monitors body temperature Evaluates postoperative respiratory status Evaluates postoperative cardiac status Evaluates postoperative neurological status Assesses pain control, collaborated in initiating patient-controlled analgesia and implements alternative methods of pain control Verifies allergies, administers prescribed medications and solutions, evaluates response to medications Entry 1 In PACU I 12/28/22 10:41:00 Discharge from PACU 12/28/22 11:11:00 I Outcomes Met? Yes Last Modified By: Deja Ken RN 12/28/22 11:26:13 Post-Care Text: The patient demonstrates knowledge of the expected response to the operative or invasive procedure The patient's care is consistent with the individualized perioperative plan of care The patient's right to privacy is maintained The patient's value system, lifestyle, ethnicity, and culture are considered, respected, and incorporated into the perioperative plan of care The patient participates in decisions affecting his or her perioperative plan of care The patient is free from signs and symptoms of infection The patient has wound/tissue perfusion consistent with or improved from baseline levels established preoperatively The patient is at or returning to normothermia at the conclusion of the immediate postoperative period The patient's respiratory function is consistent with or improved from baseline levels established preoperatively The patient's cardiovascular status is consistent with or improved from baseline levels established preoperatively The patient's cardiovascular status is consistent with or improved from baseline levels established preoperatively The patient demonstrates and/or reports adequate pain control throughout the perioperative period The patient received appropriate medication(s), safely administered during the perioperative period Acuity Level PACU I FT Entry 1 Start Time 12/28/22 10:41:00 Stop Time 12/28/22 11:11:00 Acuity Level Acuity Level I Last Modified By: Deja Ken RN 12/28/22 11:26:25 Finalized By: Deja Ken RN Document Signatures Signed By: Deja Ken RN 12/28/22 11:26 Normal [facility] Main OR Preoperative Recordo n 12-28-2022 Main OR Preoperative Record Holding Area Document Type FT Summary Primary Physician: Petty AMBROSE MD Finalized Date/Time: 12/28/22 10:00:59 Pt. Name: MARIANNA RAMIREZ/Sex: 1975 Female Med Rec #: [id number] Physician: Petty AMBROSE MD Financial #: [id number] Pt. Type: O Room/Bed: / Admit/Disch: 12/28/22 09:20:45 - Institution: Case Times Holding FT Pre-Care Text: Verifies consent for planned procedure, identifies individual values and wishes concerning care, includes family members in perioperative teaching Secures patient's records' belongings, and valuables, maintains patient's dignity and privacy, and maintains patient confidentiality Entry 1 In Holding 12/28/22 09:45:00 Outcomes Met? Yes Last Modified By: Tess Cummins RN 12/28/22 10:00:07 Post-Care Text: The patient participates in decisions affecting his or her perioperative plan of care The patient's right to privacy is maintained Surgery Checklist FT Entry 1 Patient Birthday, ID Band Procedure History and Physical, Identification: Check, Patient Verification: Surgical Consent, With Participation Patient NPO after Midnight: Yes Date/Time: 12/28/22 00:00:00 Personal Items: Glasses, Jewelry Personal Items glasses, earrings, Comment: clothes Limitations: n/a Complaints of Pain: No Pain Comment: denies Operative Site n/a Marking: Marked By: n/a Availability Equipment Verified: Does Patient Smoke No Patient states Yes Comment - Adult John- spouse postop adult Supervision supervision available Case Cancelled in No Holding Area see comments below for reason Last Modified By: Tess Cummins RN 12/28/22 10:00:57 Finalized By: Tess Cummins RN Document Signatures Signed By: Tess Cummins RN 12/28/22 10:00 Normal [facility] Monitor Recordon 12-28-2022 Monitor Record [id number]# 1.00CD:127 Normal [facility] Monitor Record [id number]# 1.00CD:127 [facility] Progress Note-Physicianon Progress Note-Physician Patient: MARIANNA RAMIREZ Age: 47 years Sex: Female : 1975 Associated Diagnoses: None Author: Frank Tovar MD Postoperative Information Postoperative disposition Optimetrix number: Optimetrix number [id number]. Anesthetic utilized: General. Physical Examination Vital Signs 12/28/2022 11:05 EDT Heart Rate Monitored 75 bpm Respiratory Rate Monitored 18 br/min Systolic Blood Pressure 98 mmHg Diastolic Blood Pressure 50 mmHg LOW Blood Pressure Location Right arm Mean Arterial Pressure, Cuff 66 mmHg SpO2 99 % 12/28/2022 10:55 EDT Heart Rate Monitored 82 bpm Respiratory Rate Monitored 15 br/min Systolic Blood Pressure 98 mmHg Diastolic Blood Pressure 40 mmHg LOW Blood Pressure Location Right arm Mean Arterial Pressure, Cuff 59 mmHg SpO2 98 % 12/28/2022 10:50 EDT Heart Rate Monitored 70 bpm Respiratory Rate Monitored 20 br/min Systolic Blood Pressure 84 mmHg LOW Diastolic Blood Pressure 45 mmHg LOW Blood Pressure Location Right arm Mean Arterial Pressure, Cuff 58 mmHg SpO2 96 % 12/28/2022 10:45 EDT Heart Rate Monitored 73 bpm Respiratory Rate Monitored 21 br/min Systolic Blood Pressure 71 mmHg LOW Diastolic Blood Pressure 40 mmHg LOW Blood Pressure Location Right arm Mean Arterial Pressure, Cuff 50 mmHg SpO2 93 % 12/28/2022 10:41 EDT Temperature Temporal Artery 36.4 DegC Heart Rate Monitored 73 bpm Respiratory Rate Monitored 11 br/min Systolic Blood Pressure 72 mmHg LOW Diastolic Blood Pressure 36 mmHg LOW Blood Pressure Location Right arm Mean Arterial Pressure, Cuff 48 mmHg SpO2 94 % Pain Assessment: Pain Assessment 12/28/2022 11:05 EDT Numeric Pain Scale 0 = No pain . General: Awake, Alert, Appropriate. Respiratory: Adequate air exchange, Equal bilateral chest wall expansion. Cardiovascular: Stable. Neurological: At Baseline. Assessment Anesthetic outcome No anesthetic complications noted. Review / Management Condition: Stable. Plan Transfer/Discharge: Transfer/Discharge Discharge when meets criteria ( To home ). Normal [facility] Comment on above: Result Comment: Elec tronically Signed By: Frank Tovar MD\.br\Date and Time Signed: 12/28/22 17:57 EDT Progress Note-Physician Patient: MARIANNA RAMIREZ Age: 47 years Sex: Female : 1975 Associated Diagnoses: None Author: Frank Tovar MD Preoperative Information Anesthesia Preop Info: Time patient last ate or drank 12/27/2022 19:00:00. Anesthesia history: Patient history: None. Family history+: None. Informed consent: Signed by patient. Including risks, benefits, and alternatives related to the: Anesthetic plan. Re-evaluation prior to induction: Guy CLINE, Frank Peralta. Initial evaluation reviewed: No significant change. Review of Systems Eye: Negative. Ear/Nose/Mouth/Throat : Negative. Respiratory: Negative. Cardiovascular: Negative. Gastrointestinal: Negative. Genitourinary: Negative. Hematology/Lymphatics : Negative. Endocrine: Negative. Musculoskeletal: Negative. Neurologic: Negative. Health Status Allergies: Allergies (3) Active Reaction contrast media (gadolinium-based) Rash fentaNYL Rash Versed Rash Current medications: Home Medications (6) Active Benefiber , Oral, Daily Coreg 25 mg, Oral, BID lisinopril 5 mg, Oral, Daily Metamucil , Oral Vitamin D , Oral, Daily Zyrtec 10 mg, PRN, Oral , Medications (1) Active Scheduled: (0) Continuous: (1) Sodium Chloride 0.9% 1,000 mL 1,000 mL, IV, 20 mL/hr PRN: (0) Problem list: All Problems Abdominal cramping / SNOMED CT 056949625 / Confirmed Acid reflux / SNOMED CT 983210790 / Confirmed Diarrhea / SNOMED CT 104956353 / Confirmed Dysphagia / SNOMED CT 58153133 / Confirmed RUQ pain / SNOMED CT 802058874 / Confirmed, Active Problems (5) Abdominal cramping Acid reflux Diarrhea Dysphagia RUQ pain Histories Social History Social & Psychosocial Habits Alcohol 08/16/2019 Risk Assessment: Denies Alcohol Use Substance Abuse 08/16/2019 Risk Assessment: Denies Substance Abuse Tobacco 08/16/2019 Risk Assessment: Denies Tobacco Use 12/21/2022 Tobacco Use: Never (less than 100 in l Smokeless tobacco use: Never . Physical Examination Vital Signs 12/28/2022 11:05 EDT Heart Rate Monitored 75 bpm Respiratory Rate Monitored 18 br/min Systolic Blood Pressure 98 mmHg Diastolic Blood Pressure 50 mmHg LOW Blood Pressure Location Right arm Mean Arterial Pressure, Cuff 66 mmHg SpO2 99 % 12/28/2022 10:55 EDT Heart Rate Monitored 82 bpm Respiratory Rate Monitored 15 br/min Systolic Blood Pressure 98 mmHg Diastolic Blood Pressure 40 mmHg LOW Blood Pressure Location Right arm Mean Arterial Pressure, Cuff 59 mmHg SpO2 98 % 12/28/2022 10:50 EDT Heart Rate Monitored 70 bpm Respiratory Rate Monitored 20 br/min Systolic Blood Pressure 84 mmHg LOW Diastolic Blood Pressure 45 mmHg LOW Blood Pressure Location Right arm Mean Arterial Pressure, Cuff 58 mmHg SpO2 96 % 12/28/2022 10:45 EDT Heart Rate Monitored 73 bpm Respiratory Rate Monitored 21 br/min Systolic Blood Pressure 71 mmHg LOW Diastolic Blood Pressure 40 mmHg LOW Blood Pressure Location Right arm Mean Arterial Pressure, Cuff 50 mmHg SpO2 93 % 12/28/2022 10:41 EDT Temperature Temporal Artery 36.4 DegC Heart Rate Monitored 73 bpm Respiratory Rate Monitored 11 br/min Systolic Blood Pressure 72 mmHg LOW Diastolic Blood Pressure 36 mmHg LOW Blood Pressure Location Right arm Mean Arterial Pressure, Cuff 48 mmHg SpO2 94 % 12/28/2022 10:39 EDT Respiratory Rate 18 br/min br/min 12/28/2022 10:35 EDT Heart Rate Monitored 87 bpm bpm Respiratory Rate 16 br/min br/min (Modified) Systolic Blood Pressure 124 mmHg mmHg Diastolic Blood Pressure 59 mmHg mmHg SpO2 99 % % 12/28/2022 10:30 EDT Heart Rate Monitored 73 bpm bpm Systolic Blood Pressure 129 mmHg mmHg Diastolic Blood Pressure 81 mmHg mmHg SpO2 100 % % 12/28/2022 10:28 EDT Respiratory Rate 18 br/min br/min 12/28/2022 10:27 EDT Systolic Blood Pressure 146 mmHg mmHg Diastolic Blood Pressure 87 mmHg mmHg 12/28/2022 9:55 EDT Temperature Temporal Artery 36.1 DegC LOW Heart Rate Monitored 68 bpm Respiratory Rate Monitored 18 br/min Systolic Blood Pressure 130 mmHg Diastolic Blood Pressure 75 mmHg Blood Pressure Location Left arm SpO2 100 % Measurements from flowsheet : Measurements 12/28/2022 9:59 EDT Height/Length Measured 157 cm Height/Length Dosing 157.0 cm Weight Dosing 67.4 kg BSA Measured 1.71 m2 Body Mass Index Measured 27.34 kg/m2 Weight Measured 67.4 kg Airway: Mallampati classification: II (soft palate, fauces, uvula visible). Distance: Thyromental, Adequate. Respiratory: Lungs are clear to auscultation, Symmetrical chest wall expansion. Cardiovascular: Regular rhythm, Good pulses equal in all extremities. Gastrointestinal: Soft, Non-tender. Plan [place] [employer] (ASA) physical status classification: Class II. Anesthetic Preoperative Plan: Anesthesia General. Normal [facility] Comment on above: Result Comment: Elec tronically Signed By: Guy CLINE, Frank Keenan.sumit\Date and Time Signed: 12/28/22 17:55 EDT Lab Reportson 12-24-2022 Lab Reports [id number] .00CD:127 Normal [facility] Lab Reportson 12-23-2022 Lab Reports [id number] .00CD:127 [facility] Consent for Procedure/Surger yon 12-22-2022 Consent for Procedure/Surgery [id number]#1 .00CD:127 [facility] GI PANEL (PCR)on 12-22-2022 Adenovirus F 40/41 Not detected Normal NOT DETECTED [facility] Comment on above: Performed By: #### C BC #### [facility] [address] [address] [address] Belkis Ascencio Astrovirus Not detected Normal NOT DETECTED [facility] Comment on above: Performed By: #### C BC #### [facility] [address] [address] [address] Belkis Ngo Diff toxin A/B Not detected Normal NOT DETECTED [facility] Comment on above: Performed By: #### C BC #### [facility] [address] [address] [address] Belkis Ascencio Campylobacter Not detected Normal NOT DETECTED [facility] Comment on above: Performed By: #### C BC #### [facility] [address] [address] [address] Belkis Ascencio Cryptosporidium Not detected Normal NOT DETECTED [facility] Comment on above: Performed By: #### C BC #### [facility] [address] [place] [address] Dr. Belkis Ascencio Cyclos. Cayetanensis Not detected Normal NOT DETECTED [facility] Comment on above: Performed By: #### C BC #### [facility] [address] [place] [address] Dr. Belkis Ascencio E. Coli O157 Not Applicable Normal Not Applicable [facility] Comment on above: Performed By: #### C BC #### [facility] [address] [place] [address] Dr. Belkis Ascencio E. histolytica Not detected Normal NOT DETECTED [facility] Comment on above: Performed By: #### C BC #### [facility] [address] [place] [address] Dr. Belkis Ascencio EAEC Not detected Normal NOT DETECTED [facility] Comment on above: Performed By: #### C BC #### [facility] [address] [place] [address] Dr. Belkis Ascencio EIEC Not detected Normal NOT DETECTED [facility] Comment on above: Performed By: #### C BC #### [facility] [address] [place] [address] Dr. Belkis Ascencio EPEC Not detected Normal NOT DETECTED [facility] Comment on above: Performed By: #### C BC #### [facility] [address] [place] [address] Dr. Belkis Ascencio ETEC Not detected Normal NOT DETECTED [facility] Comment on above: Performed By: #### C BC #### [facility] [address] [place] [address] Dr. Belkis Ascencio G. Lamblia Not detected Normal NOT DETECTED [facility] Comment on above: Performed By: #### C BC #### [facility] [address] [place] [address] Dr. Belkis REESEL CONTROLS PASSED Normal The [facility] Comment on above: Performed By: #### C BC #### [facility] [address] [place] [address] Dr. Belkis IBARRA ABRIL HEADER GI PANEL BACTERIA Normal [facility] Comment on above: Performed By: #### C BC #### [facility] [address] [place] [address] Dr. Belkis IBARRAHD ECOLI GI PANEL DIARRHEAGENIC E.COLI / SHIGELLA Normal [facility] Comment on above: Performed By: #### C BC #### [facility] [address] [address] [address] Belkis WU INFO SEE BELOW Normal [facility] Comment on above: Result Comment: EAEC - Enteroaggregative E. Coli EPEC- Enteropathogenic E. Coli ETEC- Enterotoxigenic E. Coli lt/st STEC- Shigella-like toxin-producing E. Coli stx1/stx2 EIEC- Shigella/Enteroinvasive E. Coli Performed By: #### C BC #### [facility] [address] [address] [address] Belkis WU PARASITES GI PANEL PARASITES Normal [facility] Comment on above: Performed By: #### C BC #### [facility] [address] [place] [address] Dr. Belkis WU VIRUS GI PANEL VIRUSES Normal [facility] Comment on above: Performed By: #### C BC #### [facility] [address] [address] [address] Belkis Ascencio Norovirus GI/GII Not detected Normal NOT DETECTED [facility] Comment on above: Performed By: #### C BC #### [facility] [address] [address] [address] Belkis Ascencio P. Shigelloides Not detected Normal NOT DETECTED [facility] Comment on above: Performed By: #### C BC #### [facility] [address] [address] [address] Belkis Ascencio Rotavirus A Not detected Normal NOT DETECTED [facility] Comment on above: Performed By: #### C BC #### [facility] [address] [address] [address] Belkis Ascencio Salmonella Not detected Normal NOT DETECTED [facility] Comment on above: Performed By: #### C BC #### [facility] [address] [place] [address] Dr. Belkis Ascencio Sapovirus Not detected Normal NOT DETECTED [facility] Comment on above: Performed By: #### C BC #### [facility] [address] [address] [address] Belkis Ascencio STEC Not detected Normal NOT DETECTED [facility] Comment on above: Performed By: #### C BC #### [facility] [address] [place] [address] Dr. Belkis Ascencio Vibrio Not detected Normal NOT DETECTED [facility] Comment on above: Performed By: #### C BC #### [facility] [address] [place] [address] Dr. Belkis Ascencio Vibrio Cholera Not detected Normal NOT DETECTED [facility] Comment on above: Performed By: #### C BC #### [facility] [address] [place] [address] Dr. Belkis Ascencio Y. Enterocolitica Not detected Normal NOT DETECTED [facility] Comment on above: Performed By: #### C BC #### [facility] [address] [place] [address] Dr. Belkis Ascencio RAD - Ultrasound Reporton RAD - Ultrasound Report [id number] .00CD:127 Normal [facility] US SINGLE QUAD RT UPPERon US SINGLE QUAD RT UPPER EXAMINATION: US SINGLE QUAD RT UPPER HISTORY: Right upper quadrant pain COMPARISON: No relevant comparison available. TECHNIQUE: Transabdominal evaluation of the right upper quadrant. FINDINGS: LIVER: Normal size and echotexture. Color Doppler demonstrates patent hepatic veins. PORTAL VEIN: Duplex Doppler demonstrates normal hepatopetal flow pattern with flow velocity averaging 28 cm/s. GALLBLADDER: No visible gallstones, wall thickening, or pericholecystic free fluid. Negative sonographic Aly's sign. BILIARY: No abnormal dilation or stones. Common bile duct diameter is within normal limits. PANCREASE: No visible mass, abnormal atrophy, or duct dilation. KIDNEY: No hydronephrosis. No visible mass or stones. Size: 11.2 x 4.8 x 4.5 cm IMPRESSION: 1. Normal right upper quadrant ultrasound. Electronically authenticated by: GABRIELA CONKLIN Date: 2022-12-22 12:18 Normal [facility] Ambulatory Visit Summaryon 0 12-21-2022 Ambulatory Visit Summary MARIANNA RAMIREZ :1975 Visit Date:12/21/2022 Ambulatory Visit Instructions Your Diagnosis RUQ pain Diarrhea Abdominal cramping Acid reflux Dysphagia Tests Performed Gallbladder US -- Results Pending -- Please visit your patient portal for your results or contact your primary care physician. Your Care Team Attending Physician - Jessica Lopez CNP Primary Care Physician - CJ LAZO MD This Is Your Medications List Contact prescribing physician if questions or concerns carvedilol (Coreg) cetirizine (Zyrtec) ergocalciferol (Vitamin D) lisinopril psyllium (Metamucil) wheat dextrin (Benefiber) Procedures Performed Colonoscopy (09/27/2020), EGD (esophagogastroduoden oscopy) gastric outlet reduction. Discharge Vitals Temperature (Temporal Artery) 36.1 ?C Heart Rate (Peripheral) 66 Blood Pressure 116/77 Height 157 cm Height 62 in Weight 67.4 kg Weight 148.28 lb BMI 27.34 What to do next You Need to Schedule the Following Appointments Follow Up with Jessica Lopez CNP When: Within 1 month Where: Medications What How Much When Instructions Unchanged carvedilol (Coreg) 25 Milligram By Mouth 2 times a day Contact prescribing physician if questions or concerns Unchanged cetirizine (Zyrtec) 10 Milligram By Mouth As needed for Allergy symptoms Contact prescribing physician if questions or concerns Unchanged ergocalciferol (Vitamin D) By Mouth Every day Contact prescribing physician if questions or concerns Unchanged lisinopril 5 Milligram By Mouth Every day Contact prescribing physician if questions or concerns Unchanged psyllium (Metamucil) By Mouth Contact prescribing physician if questions or concerns Unchanged wheat dextrin (Benefiber) Contact prescribing physician if questions or concerns Allergies Versed (Rash) contrast media (gadolinium-based) (Rash, Cough) fentaNYL (Rash) Problems Ongoing - Any problem that you are currently receiving treatment for. Abdominal cramping Acid reflux Diarrhea Dysphagia RUQ pain Education Materials High-Fiber Diet Fiber, also called dietary fiber, is a type of carbohydrate that is found in fruits, vegetables, whole grains, and beans. A high-fiber diet can have many health benefits. Your health care provider may recommend a high-fiber diet to help: ? Prevent constipation. Fiber can make your bowel movements more regular. ? Lower your cholesterol. ? Relieve the following conditions: ? Swelling of veins in the anus (hemorrhoids). ? Swelling and irritation (inflammation) of specific areas of the digestive tract (uncomplicated diverticulosis). ? A problem of the large intestine (colon) that sometimes causes pain and diarrhea (irritable bowel syndrome, IBS). ? Prevent overeating as part of a weight-loss plan. ? Prevent heart disease, type 2 diabetes, and certain cancers. What is my plan? The recommended daily fiber intake in grams (g) includes: ? 38 g for men age 50 or younger. ? 30 g for men over age 50. ? 25 g for women age 50 or younger. ? 21 g for women over age 50. You can get the recommended daily intake of dietary fiber by: ? Eating a variety of fruits, vegetables, grains, and beans. ? Taking a fiber supplement, if it is not possible to get enough fiber through your diet. What do I need to know about a high-fiber diet? ? It is better to get fiber through food sources rather than from fiber supplements. There is not a lot of research about how effective supplements are. ? Always check the fiber content on the nutrition facts label of any prepackaged food. Look for foods that contain 5 g of fiber or more per serving. ? Talk with a diet and technical operations specialist (dietitian) if you have questions about specific foods that are recommended or not recommended for your medical condition, especially if those foods are not listed below. ? Gradually increase how much fiber you consume. If you increase your intake of dietary fiber too quickly, you may have bloating, cramping, or gas. ? Drink plenty of water. Water helps you to digest fiber. What are tips for following this plan? ? Eat a wide variety of high-fiber foods. ? Make sure that half of the grains that you eat each day are whole grains. ? Eat breads and cereals that are made with whole-grain flour instead of refined flour or white flour. ? Eat brown rice, bulgur wheat, or millet instead of white rice. ? Start the day with a breakfast that is high in fiber, such as a cereal that contains 5 g of fiber or more per serving. ? Use beans in place of meat in soups, salads, and pasta dishes. ? Eat high-fiber snacks, such as berries, raw vegetables, nuts, and popcorn. ? Choose whole fruits and vegetables instead of processed forms like juice or sauce. What foods can I eat? Fruits Berries. Pears. Apples. Oranges. Avocado. Pr (more content not included)... Normal [facility] CBC AUTO DIFFon 12-21-2022 BASO # 0.0 103/ul Normal 0.0-0.1 [facility] Comment on above: Performed By: #### C BC #### [facility] [address] [address] [address] Belkis Ascencio Basophils/100 WBC (Bld) 0.2 % Normal 0.2-2.0 [facility] Comment on above: Performed By: #### C BC #### [facility] [address] [place] [address] Dr. Belkis Ascencio EO # 0.1 103/ul Normal 0.0-0.7 [facility] Comment on above: Performed By: #### C BC #### [facility] [address] [address] [address] Belkis Ascencio Eosinophils/100 WBC (Bld) 0.8 % Critically low 0.9-7.0 [facility] Comment on above: Performed By: #### C BC #### [facility] [address] [place] [address] Dr. Belkis Ascencio Erythrocyte distribution width (RBC) [Ratio] 11.8 % Normal 11.0-15.0 [facility] Comment on above: Performed By: #### C BC #### [facility] [address] [place] [address] Dr. Belkis Ascencio Hematocrit (Bld) [Volume fraction] 38.2 % Normal 36.0-48.0 [facility] Comment on above: Performed By: #### C BC #### [facility] [address] [place] [address] Dr. Belkis Ascencio Hemoglobin (Bld) [Mass/Vol] 13.2 g/dL Normal 12.0-16.0 [facility] Comment on above: Performed By: #### C BC #### [facility] [address] [place] [address] Dr. Belkis Ascencio IG # 0.03 10e3/ul Normal 0.00-0.03 [facility] Comment on above: Performed By: #### C BC #### [facility] [address] [place] [address] Dr. Belkis Ascencio IG % 0.3 % Normal 0.0-0.5 [facility] Comment on above: Performed By: #### C BC #### [facility] [address] [place] [address] Dr. Belkis Ascencio LYMPH # 1.9 103/ul Normal 1.2-3.8 [facility] Comment on above: Performed By: #### C BC #### [facility] [address] [place] [address] Dr. Belkis Ascencio Lymphocytes/100 WBC (Bld) 21.0 % Normal 20.5-60.0 [facility] Comment on above: Performed By: #### C BC #### [facility] [address] [place] [address] Dr. Belkis Ascencio MANUAL DIFF REQ NO Normal [facility] Comment on above: Performed By: #### C BC #### [facility] [address] [place] [address] Dr. Belkis Ascencio MCH (RBC) [Entitic mass] 30.9 pg Normal 26.7-34.0 [facility] Comment on above: Performed By: #### C BC #### [facility] [address] [place] [address] Dr. Belkis Ascencio MCHC (RBC) [Mass/Vol] 34.6 g/dL Normal 29.9-35.2 [facility] Comment on above: Performed By: #### C BC #### [facility] [address] [place] [address] Dr. Belkis Ascencio MCV (RBC) [Entitic vol] 89.5 fL Normal 81.0-99.0 [facility] Comment on above: Performed By: #### C BC #### [facility] [address] [place] [address] Dr. Belkis Ascencio MONO # 0.7 103/ul Normal 0.3-0.8 [facility] Comment on above: Performed By: #### C BC #### [facility] [address] [place] [address] Dr. Belkis Ascencio Monocytes/100 WBC (Bld) 7.8 % Normal 1.7-12.0 [facility] Comment on above: Performed By: #### C BC #### [facility] [address] [place] [address] Dr. Belkis Ascencio NEUT # 6.5 103/ul Normal 1.4-6.5 [facility] Comment on above: Performed By: #### C BC #### [facility] [address] [place] [address] Dr. Belkis Ascencio Neutrophils/100 WBC (Bld) 69.9 % Normal 43.0-75.0 [facility] Comment on above: Performed By: #### C BC #### [facility] [address] [place] [address] Dr. Belkis Ascencio Platelet mean volume (Bld) [Entitic vol] 9.6 fL Normal 9.5-13.5 [facility] Comment on above: Performed By: #### C BC #### [facility] [address] [place] [address] Dr. Belkis Ascencio PLT 264 103/ul Normal 150-450 [facility] Comment on above: Performed By: #### C BC #### [facility] [address] [place] [address] Dr. Belkis Ascencio RBC 4.27 106/ul Normal 4.20-5.40 [facility] Comment on above: Performed By: #### C BC #### [facility] [address] [place] [address] Dr. Belkis Ascencio WBC 9.3 103/ul Normal 4.0-11.0 [facility] Comment on above: Performed By: #### C BC #### [facility] [address] [place] [address] Dr. Belkis Ascencio Gastroenterology Office/Clin ic Noteon 12-21-2022 Gastroenterology Office/Clinic Note Chief Complaint Diarrhea, RUQ dull ache, cramping. HPI Staff Patient is a 47 year old female that c/o nausea, RUQ dull ache, cramping and diarrhea. The symptoms started improving some last Wednesday. Patient has been going to a chiropractor for adjustments and has improved. History of Present Illness Patient is a 47-year-old female who presents for further evaluation of nausea, abdominal cramps, diarrhea, RUQ pain. PMH of HTN- managed by patient's PCP. Patient was previously evaluated 11/[address] Ambrose and note indicated patient with abdominal cramping, diarrhea, RLQ abdominal pain. Note indicated patient with constipation and LLQ pain and was previously diagnosed with IBS with constipation. Patient was treated with fiber, probiotics, and IBgard per Dr. Ambrose. Previous colonoscopy 09/[address] Ambrose revealed normal terminal ileum, hemorrhoids and is due for repeat in 2030. Patient had previous EGD 07/[address] Ambrose that revealed normal esophagus, stomach, and duodenum. Normal GES in 2019. Previous ultrasound of RUQ of abdomen 09/2020 was negative. During today's visit, patient reports over the last 4 months, she has been experiencing abdominal cramping with explosive diarrhea 5 out of 7 days a week that had recently improved following back adjustment with Chiropractor. Last episode of diarrhea was approximately 1 week ago. She then had no BM for 4 days, then 1 formed BM yesterday. Occasional mucus in stool. Patient reports hx. previous EGD at outside facility in 2018 that showed precancerous cells in stomach- no results available to review during today's encounter. Is also having RUQ pain described as achy over the last 4 months, occurring 2-3 times a week without regard to food. She explains she had a recent adjustment with chiropractor and following adjustment, symptoms had worsened initially and then improved. Is having nausea daily for years that has improved. Is having acid reflux and pressure in esophagus for years. Reports occasionally food will get stuck in her esophagus approximately 2 times a week. Explains omeprazole previously helped her acid reflux and is no longer taking. Is taking 2 teaspoons of benefiber daily. Denies black/bloody stools, fevers/chills, and denies having any other GI complaints. Review of Systems PHQ Score Initial Depression Screen Score: 0 ROS - Provider Constitutional: no fever, no chills. Skin: no Jaundice. ENMT: yes acid reflux- see HPI for details regarding. Respiratory: no shortness of breath. Cardiovascular: no chest pain. Gastrointestinal: Improved. nausea, no vomiting, yes diarrhea, no GI bleeding. Physical Exam Vitals & Measurements T: 36.1 ?C(Temporal Artery) HR: 66(Peripheral) BP: 116/77 HT: 62 in HT: 157 cm WT: 67.4 kg WT: 148.28 lb BMI: 27.34 General: Well developed, well nourished, in no acute distress Head: Normocephalic/atrauma tic Lungs: Normal respiratory effort and clear to auscultation Cardio: Regular rate and rhythm, normal S1 and S2, no murmur, no rub Abdomen: Soft, non-distended, non-tender. Normoactive bowel sounds present in all 4 abdominal quadrants, bilaterally. Mental Status: Alert and oriented x3. Normal mood and affect Assessment/Plan 1. RUQ pain (R10.11: Right upper quadrant pain) Is having RUQ pain described as achy over the last 4 months, occurring 2-3 times a week without regard to food. Previous EGD 07/[address] Ambrose that revealed normal esophagus, stomach, and duodenum. Ordered CBC/CMP. Ordered ultrasound of RUQ. Ordered EGD to evaluate for PUD. Ordered: CBC w/ Auto Diff Comprehensive Metabolic Panel EGD Endoscopy (Hospital Procedure) US Gallbladder 2. Diarrhea (R19.7: Diarrhea, unspecified) Over the last 4 months, she has been experiencing abdominal cramping in LLQ of abdomen with explosive diarrhea 5 out of 7 days a week that had recently improved following back adjustment with Chiropractor. Previous colonoscopy 09/[address] Ambrose revealed normal terminal ileum, hemorrhoids and is due for repeat in 2030. Last episode of diarrhea was approximately 1 week ago. Ordered stool testing to evaluate for infectious process. Ordered CBC/CMP. Educated to increase benefiber 2 tablespoons daily. Ordered: CBC w/ Auto Diff Clostridium Difficile PCR Comprehensive Metabolic Panel Enteric Panel by PCR Fecal WBC Lactoferrin Giardia lamblia, Direct Detection EIA O & P Exam, Routine 3. Abdominal cramping (R10.9: Unspecified abdominal pain) Over the last 4 months, she has been experiencing abdominal cramping in LLQ of abdomen with explosive diarrhea 5 out of 7 days a week that had recently improved following back adjustment with Chiropractor. Last episode of diarrhea was approximately 1 week ago. Ordered stool testing to evaluate for infectious process. Ordered CBC/CMP. Ordered: CBC w/ Auto Diff Clostridium Difficile PCR Comprehensive Metabolic Panel EGD Endoscopy (Hospital Procedure) Enteric Pane (more content not included)... Normal [facility] Comment on above: Result Comment: Elec tronically Signed By: Jessica Lopez CNP\.br\Date and Time Signed: 12/21/22 13:18 EDT PROF 14(COMP METB)on 023 Albumin [Mass/Vol] 4.0 g/dL Normal 3.4-5.0 [facility] Comment on above: Performed By: #### C MP #### [facility] [address] [place] [address] Dr. Belkis Ascencio Albumin/Globulin [Mass ratio] 1.0 {ratio} Normal [facility] Comment on above: Performed By: #### C MP #### [facility] [address] [place] [address] Dr. Belkis Ascencio ALP [Catalytic activity/Vol] 43 U/L Critically low 46-116 [facility] Comment on above: Performed By: #### C MP #### [facility] [address] [address] [address] Belkis Ascencio ALT [Catalytic activity/Vol] 18 U/L Normal 14-59 [facility] Comment on above: Performed By: #### C MP #### [facility] [address] [place] [address] Dr. Belkis Ascencio Anion gap [Moles/Vol] 9.5 mmol/L Normal [facility] Comment on above: Performed By: #### C MP #### [facility] [address] [place] [address] Dr. Belkis Ascencio AST [Catalytic activity/Vol] 13 U/L Critically low 15-37 [facility] Comment on above: Performed By: #### C MP #### [facility] [address] [place], [place] [id number] Dr. Belkis Ascencio Bilirubin [Mass/Vol] 0.3 mg/dL Normal 0.2-1.0 [facility] Comment on above: Performed By: #### C MP #### [facility] [address] [place] [address] Dr. Belkis Ascencio Calcium [Mass/Vol] 9.2 mg/dL Normal 8.5-10.[address] [facility] Comment on above: Performed By: #### C MP #### [facility] [address] [place] [address] Dr. Belkis Ascencio Chloride [Moles/Vol] 104 mmol/L Normal 98-107 [facility] Comment on above: Performed By: #### C MP #### [facility] [address] [place] [address] Dr. Belkis Ascencio CO2 [Moles/Vol] 29.4 mmol/L Normal 21.0-32.0 [facility] Comment on above: Performed By: #### C MP #### [facility] [address] [place] [address] Dr. Belkis Ascencio Creatinine [Mass/Vol] 0.68 mg/dL Normal 0.55-1.02 [facility] Comment on above: Performed By: #### C MP #### [facility] [address] [place] [address] Dr. Belkis Ascencio EGFR-AF FINNISH >60 Normal >=60 [facility] Comment on above: Performed By: #### C MP #### [facility] [address] [address] [address] Belkis Ascencio EGFR-NON AF FINNISH >60 Normal >=60 [facility] Comment on above: Performed By: #### C MP #### [facility] [address] [place] [address] Dr. Belkis Ascencio Globulin (S) [Mass/Vol] 4.2 g/dL Normal [facility] Comment on above: Performed By: #### C MP #### [facility] [address] [address] [address] Belkis Ascencio Glucose [Mass/Vol] 92 mg/dL Normal 74-106 [facility] Comment on above: Performed By: #### C MP #### [facility] [address] [address] [address] Belkis Ascencio Potassium [Moles/Vol] 3.9 mmol/L Normal 3.5-5.1 [facility] Comment on above: Performed By: #### C MP #### [facility] [address] [address] [address] Belkis Ascencio Protein [Mass/Vol] 8.2 g/dL Normal 6.4-8.2 [facility] Comment on above: Performed By: #### C MP #### [facility] [address] [address] [address] Belkis Ascencio Sodium [Moles/Vol] 139 mmol/L Normal 136-145 [facility] Comment on above: Performed By: #### C MP #### [facility] [address] [address] [address] Belkis Ascencio Urea nitrogen [Mass/Vol] 15.0 mg/dL Normal 7.0-18.0 [facility] Comment on above: Performed By: #### C MP #### [facility] [address] [address] [address] Belkis Ascencio Urea nitrogen/Creatinine [Mass ratio] 22.1 mg/mg Normal [facility] Comment on above: Performed By: #### C MP #### [facility] [address] [address] [address] Belkis Ascencio Patient Education 12-22-19 23 Patient Education [facility] High-Fiber Diet Fiber, also called dietary fiber, is a type of carbohydrate that is found in fruits, vegetables, whole grains, and beans. A high-fiber diet can have many health benefits. Your health care provider may recommend a high-fiber diet to help: ? Prevent constipation. Fiber can make your bowel movements more regular. ? Lower your cholesterol. ? Relieve the following conditions: ? Swelling of veins in the anus (hemorrhoids). ? Swelling and irritation (inflammation) of specific areas of the digestive tract (uncomplicated diverticulosis). ? A problem of the large intestine (colon) that sometimes causes pain and diarrhea (irritable bowel syndrome, IBS). ? Prevent overeating as part of a weight-loss plan. ? Prevent heart disease, type 2 diabetes, and certain cancers. What is my plan? The recommended daily fiber intake in grams (g) includes: ? 38 g for men age 50 or younger. ? 30 g for men over age 50. ? 25 g for women age 50 or younger. ? 21 g for women over age 50. You can get the recommended daily intake of dietary fiber by: ? Eating a variety of fruits, vegetables, grains, and beans. ? Taking a fiber supplement, if it is not possible to get enough fiber through your diet. What do I need to know about a high-fiber diet? ? It is better to get fiber through food sources rather than from fiber supplements. There is not a lot of research about how effective supplements are. ? Always check the fiber content on the nutrition facts label of any prepackaged food. Look for foods that contain 5 g of fiber or more per serving. ? Talk with a diet and technical operations specialist (dietitian) if you have questions about specific foods that are recommended or not recommended for your medical condition, especially if those foods are not listed below. ? Gradually increase how much fiber you consume. If you increase your intake of dietary fiber too quickly, you may have bloating, cramping, or gas. ? Drink plenty of water. Water helps you to digest fiber. What are tips for following this plan? ? Eat a wide variety of high-fiber foods. ? Make sure that half of the grains that you eat each day are whole grains. ? Eat breads and cereals that are made with whole-grain flour instead of refined flour or white flour. ? Eat brown rice, bulgur wheat, or millet instead of white rice. ? Start the day with a breakfast that is high in fiber, such as a cereal that contains 5 g of fiber or more per serving. ? Use beans in place of meat in soups, salads, and pasta dishes. ? Eat high-fiber snacks, such as berries, raw vegetables, nuts, and popcorn. ? Choose whole fruits and vegetables instead of processed forms like juice or sauce. What foods can I eat? Fruits Berries. Pears. Apples. Oranges. Avocado. Prunes and raisins. Dried figs. Vegetables Sweet potatoes. Spinach. Kale. Artichokes. Cabbage. Broccoli. Cauliflower. Green peas. Carrots. Squash. Grains Whole-grain breads. Multigrain cereal. Oats and oatmeal. Brown rice. Barley. Bulgur wheat. Millet. Quinoa. Bran muffins. Popcorn. [place] wafer crackers. Meats and other proteins Chamita, kidney, and aparicio beans. Soybeans. Split peas. Lentils. Nuts and seeds. Dairy Fiber-fortified yogurt. Beverages Fiber-fortified soy milk. Fiber-fortified orange juice. Other foods Fiber bars. The items listed above may not be a complete list of recommended foods and beverages. Contact a dietitian for more options. What foods are not recommended? Fruits Fruit juice. Cooked, strained fruit. Vegetables Fried potatoes. Canned vegetables. Well-cooked vegetables. Grains White bread. Pasta made with refined flour. White rice. Meats and other proteins Fatty cuts of meat. Fried chicken or fried fish. Dairy Milk. Yogurt. Cream cheese. Sour cream. Fats and oils Donora. Beverages Soft drinks. Other foods Cakes and pastries. The items listed above may not be a complete list of foods and beverages to avoid. Contact a dietitian for more information. Summary ? Fiber is a type of carbohydrate. It is found in fruits, vegetables, whole grains, and beans. ? There are many health benefits of eating a high-fiber diet, such as preventing constipation, lowering blood cholesterol, helping with weight loss, and reducing your risk of heart disease, diabetes, and certain cancers. ? Gradually increase your intake of fiber. Increasing too fast can result in cramping, bloating, and gas. Drink plenty of water while you increase your fiber. ? The best sources of fiber include whole fruits and vegetables, whole grains, nuts, seeds, and beans. This information is not intended to replace advice given to you by your health care provider. Make sure you discuss any questions you have with your health care provider. Document Released: 08/23/2006 Document Revised: 06/27/2018 Document Reviewed: 06/27/2018 [employer] Patient Education ? 2019 [employer] [facility] BUNon 12-19-2022 Urea nitrogen [Mass/Vol] 16.0 mg/dL Normal 7.0-18.0 [facility] Comment on above: Performed By: #### B UN, CREA, LIPID, ELEC #### [facility] [address] [place] [address] Dr. Belkis Ascencio CREATININEon 12-19-2022 Creatinine [Mass/Vol] 0.87 mg/dL Normal 0.55-1.02 [facility] Comment on above: Performed By: #### C BC #### [facility] [address] [place] [address] Dr. Belkis Ascencio EGFR-AF FINNISH >60 Normal >=60 [facility] Comment on above: Performed By: #### C BC #### [facility] [address] [place] [address] Dr. Belkis Ascencio EGFR-NON AF FINNISH >60 Normal >=60 [facility] Comment on above: Performed By: #### C BC #### [facility] [address] [place] [address] Dr. Belkis Ascencio ELECTROLYTESon 12-19-2022 Anion gap [Moles/Vol] 10.4 mmol/L Normal [facility] Comment on above: Performed By: #### C BC #### [facility] [address] [place] [address] Dr. Belkis Ascencio Chloride [Moles/Vol] 105 mmol/L Normal 98-107 [facility] Comment on above: Performed By: #### C BC #### [facility] [address] [place] [address] Dr. Belkis Ascencio CO2 [Moles/Vol] 28.4 mmol/L Normal 21.0-32.0 [facility] Comment on above: Performed By: #### C BC #### [facility] [address] [place] [address] Dr. Belkis Ascencio Potassium [Moles/Vol] 3.8 mmol/L Normal 3.5-5.1 [facility] Comment on above: Performed By: #### C BC #### [facility] [address] [place] [address] Dr. Belkis Ascencio Sodium [Moles/Vol] 140 mmol/L Normal 136-145 [facility] Comment on above: Performed By: #### C BC #### [facility] [address] [id number] Belkis Ascencio LIPID PROFILEon 12-19-2022 CHOL-HDL RATIO NORM SEE BELOW Normal [facility] Comment on above: Result Comment: 3.3 - 4.4 LOW RISK 4.4 - 7.1 AVERAGE RISK 7.1 - 11.0 MODERATE RISK >11.0 HIGH RISK Performed By: #### C BC #### [facility] [address] [address] [address] Belkis Ascencio Cholesterol [Mass/Vol] 167 mg/dL Normal <=200 [facility] Comment on above: Performed By: #### C BC #### [facility] [address] [address] [address] Belkis Ascencio Cholesterol in HDL [Mass/Vol] 46 mg/dL Normal 40-60 [facility] Comment on above: Performed By: #### C BC #### [facility] [address] [address] [address] Belkis Ascencio Cholesterol in LDL [Mass/Vol] 107.8 mg/dL Normal [facility] Comment on above: Performed By: #### C BC #### [facility] [address] [address] [address] Belkis Ascencio Cholesterol.total/Ch olesterol in HDL [Mass ratio] 3.6 {ratio} Normal [facility] Comment on above: Performed By: #### C BC #### [facility] [id number] Belkis Ascencio HDL NORMAL > or = 60 mg/dl - LO W CARDIOVASCULAR RISK <40 mg/dl - HIGH CARDIOVASCULAR RISK Normal [facility] Comment on above: Performed By: #### C BC #### [facility] [id number] Belkis Ascencio LDL CALC NORMAL SEE BELOW Normal [facility] Comment on above: Result Comment: <100 mg/dl OPTIMAL 100 - 129 mg/dl NEAR OR ABOVE OPTIMAL 130 - 159 mg/dl BORDERLINE HIGH 160 - 189 mg/dl HIGH >190 mg/dl VERY HIGH Performed By: #### C BC #### [facility] [address] [place] [address] Dr. Belkis Ascencio Triglyceride [Mass/Vol] 66 mg/dL Normal <=150 [facility] Comment on above: Performed By: #### C BC #### [facility] [address] [place] [address] Dr. Belkis Ascencio VLDL CALC 13.2 mg/dL Normal [facility] Comment on above: Performed By: #### C BC #### [facility] [address] [place] [address] Dr. Belkis Ascencio GLYCOHEMOGLOBIN A1Con 2022 ADA RECOMMENDATION SEE BELOW Normal [facility] Comment on above: Result Comment: ADA RECOMMENDED LIMIT 4.0 - 6.0 ADA THERAPEUTIC TARGET < 7.0 ACTION SUGGESTED > 7.0 Performed By: #### C BC #### [facility] [address] [place] [address] Dr. Belkis Ascencio Glucose [Mass/Vol] 100 mg/dL Normal [facility] Comment on above: Performed By: #### C BC #### [facility] [address] [place] [address] Dr. Belkis Ascencio HbA1c (Bld) [Mass fraction] 5.1 % Normal 4.5-6.2 [facility] Comment on above: Performed By: #### C BC #### [facility] [address] [place] [address] Dr. Belkis Ascencio BUNon 11-05-2022 Urea nitrogen [Mass/Vol] 13.0 mg/dL Normal 7.0-18.0 [facility] Comment on above: Performed By: #### C BC #### [facility] [address] [place] [address] Dr. Belkis Ascencio CHEM 7 PANEL, MANUAL ENTERon 11-05-2022 Blood Urea Nitrogen (BUN), MANUAL ENTER 13 [facility] BUN/CREA RATIO, MANUAL ENTER 13 [facility] CALCIUM (CA), MANUAL ENTER [facility] Carbon Diox(CO2), MANUAL ENTER 30.8 [facility] Chloride (CL), MANUAL ENTER 101 mmol/L [facility] CREATININE, SERUM, MANUAL ENTER 0.74 mg/dL [facility] Comment on above: eGFR>60 GLUCOSE, MANUAL ENTER [facility] MAGNESIUM (MG), MANUAL ENTER [facility] Phosphate (PO4), Manual Enter [facility] POTASSIUM (K+), MANUAL ENTER 3.5 [facility] SODIUM (NA), MANUAL ENTER 135 [facility] CREATININEon 11-05-2022 Creatinine [Mass/Vol] 0.74 mg/dL Normal 0.55-1.02 [facility] Comment on above: Performed By: #### C BC #### [facility] [address] [place] [address] Dr. Belkis Ascencio EGFR-AF FINNISH >60 Normal >=60 The [facility] Comment on above: Performed By: #### C BC #### [facility] [address] [place] [address] Dr. Belkis Ascencio EGFR-NON AF FINNISH >60 Normal >=60 [facility] Comment on above: Performed By: #### C BC #### [facility] [address] [place] [address] Dr. Belkis Ascencio ELECTROLYTESon 11-05-2022 Anion gap [Moles/Vol] 6.7 mmol/L Normal [facility] Comment on above: Performed By: #### C BC #### [facility] [address] [place] [address] Dr. Belkis Ascencio Chloride [Moles/Vol] 101 mmol/L Normal 98-107 [facility] Comment on above: Performed By: #### C BC #### [facility] [address] [place] [address] Dr. Belkis Ascencio CO2 [Moles/Vol] 30.8 mmol/L Normal 21.0-32.0 [facility] Comment on above: Performed By: #### C BC #### [facility] [address] [place] [address] Dr. Belkis Ascencio Potassium [Moles/Vol] 3.5 mmol/L Normal 3.5-5.1 [facility] Comment on above: Performed By: #### C BC #### [facility] [address] [address] [address] Belkis Ascencio Sodium [Moles/Vol] 135 mmol/L Critically low 136-145 Th e [facility] Comment on above: Performed By: #### C BC #### [facility] [id number] eBlkis Ascencio MG MAMM SCREEN 3D LORNA CADon 09-15-2022 MG MAMM SCREEN 3D LORNA CAD Patient: MARIANNA RAMIREZ Exam Date: 09/15/2022 : 1975 Gender:F Ordering : DR. ILANA STEELE D.O. Admission #: [id number] Family : Order #: [id number] CLICK HERE TO VIEW EXAM RADIOLOGY REPORT PROCEDURE: MAMMOGRAM SCREENING 3D BILATERAL CAD COMPARISON: MG MAMM SCREEN LORNA W CAD, 08/27/2020. MG MAMM SCREEN LORNA W CAD, 07/27/2019. MG MAMM LORNA SCRN W CAD DIG, 07/26/2018. MG MAMM SCREEN 3D LORNA CAD, 09/01/2021. INDICATIONS: Screening mammography Calculator Name NCI Breast Cancer Risk Assessment Tool 5 Year Breast Cancer Risk 0.80% Lifetime Breast Cancer Risk 8.40% Personal Breast Cancer No Personal Ovarian Cancer No Treatments None Family Cancers Aunt-paternal with skin cancer at age 50; Uncle-paternal with lung cancer at age 40. LOCATION: [facility] BREAST COMPOSITION: Heterogeneously dense,which may obscure small masses. FINDINGS: DIAGNOSTIC CATEGORY 2--BENIGN FINDING: RIGHT BREAST: No significant suspicious finding. Scattered benign-appearing lymph nodes are present. No significant change has occurred. LEFT BREAST: No significant suspicious finding. No significant change has occurred. RECOMMENDATIONS: ROUTINE MAMMOGRAM AND CLINICAL EVALUATION IN 12 MONTHS. PLEASE NOTE: A NORMAL MAMMOGRAM DOES NOT EXCLUDE THE POSSIBILITY OF BREAST CANCER. A CLINICALLY SUSPICIOUS PALPABLE LUMP SHOULD BE BIOPSIED. Dictated by: Gabriela Conklin M.D. on 09/15/2022 at 14:26 Approved by: Gabriela Conklin M.D. on 09/15/2022 at 14:50 Normal [facility] BUNon 08-14-2022 Urea nitrogen [Mass/Vol] 15.0 mg/dL Normal 7.0-18.0 [facility] Comment on above: Performed By: #### C BRITTANI, TSH, ELEC, BUN #### [facility] [address] [address] [address] Belkis Ascencio CBC AUTO DIFFon 08-14-2022 BASO # 0.0 103/ul Normal 0.0-0.1 [facility] Comment on above: Performed By: #### C BC #### [facility] [address] [place] [address] Dr. Belkis Ascencio Basophils/100 WBC (Bld) 0.3 % Normal 0.2-2.0 [facility] Comment on above: Performed By: #### C BC #### [facility] [address] [place] [address] Dr. Belkis Ascencio EO # 0.1 103/ul Normal 0.0-0.7 [facility] Comment on above: Performed By: #### C BC #### [facility] [address] [place] [address] Dr. Belkis Ascencio Eosinophils/100 WBC (Bld) 0.7 % Critically low 0.9-7.0 [facility] Comment on above: Performed By: #### C BC #### [facility] [address] [place] [address] Dr. Belkis Ascencio Erythrocyte distribution width (RBC) [Ratio] 11.4 % Normal 11.0-15.0 [facility] Comment on above: Performed By: #### C BC #### [facility] [address] [place] [address] Dr. Belkis Ascencio Hematocrit (Bld) [Volume fraction] 38.4 % Normal 36.0-48.0 [facility] Comment on above: Performed By: #### C BC #### [facility] [address] [place] [address] Dr. Belkis Ascencio Hemoglobin (Bld) [Mass/Vol] 13.3 g/dL Normal 12.0-16.0 [facility] Comment on above: Performed By: #### C BC #### [facility] [address] [address] [address] Belkis Ascencio IG # 0.02 10e3/ul Normal 0.00-0.03 [facility] Comment on above: Performed By: #### C BC #### [facility] [address] [place] [address] Dr. Belkis Ascencio IG % 0.2 % Normal 0.0-0.5 [facility] Comment on above: Performed By: #### C BC #### [facility] [address] [place] [address] Dr. Belkis Ascencio LYMPH # 2.1 103/ul Normal 1.2-3.8 [facility] Comment on above: Performed By: #### C BC #### [facility] [address] [place] [address] Dr. Belkis Ascencio Lymphocytes/100 WBC (Bld) 23.1 % Normal 20.5-60.0 [facility] Comment on above: Performed By: #### C BC #### [facility] [address] [place] [address] Dr. Belkis Ascencio MANUAL DIFF REQ NO Normal [facility] Comment on above: Performed By: #### C BC #### [facility] [address] [place] [address] Dr. Belkis Ascencio MCH (RBC) [Entitic mass] 30.9 pg Normal 26.7-34.0 [facility] Comment on above: Performed By: #### C BC #### [facility] [address] [place] [address] Dr. Belkis Ascencio MCHC (RBC) [Mass/Vol] 34.6 g/dL Normal 29.9-35.2 [facility] Comment on above: Performed By: #### C BC #### [facility] [address] [place] [address] Dr. Belkis Ascencio MCV (RBC) [Entitic vol] 89.1 fL Normal 81.0-99.0 [facility] Comment on above: Performed By: #### C BC #### [facility] [address] [place] [address] Dr. Belkis Ascencio MONO # 0.6 103/ul Normal 0.3-0.8 [facility] Comment on above: Performed By: #### C BC #### [facility] [address] [place] [address] Dr. Belkis Ascencio Monocytes/100 WBC (Bld) 6.8 % Normal 1.7-12.0 [facility] Comment on above: Performed By: #### C BC #### [facility] [address] [place] [address] Dr. Belkis Ascencio NEUT # 6.1 103/ul Normal 1.4-6.5 [facility] Comment on above: Performed By: #### C BC #### [facility] [address] [place] [address] Dr. Belkis Ascencio Neutrophils/100 WBC (Bld) 68.9 % Normal 43.0-75.0 [facility] Comment on above: Performed By: #### C BC #### [facility] [address] [place] [address] Dr. Belkis Ascencio Platelet mean volume (Bld) [Entitic vol] 9.4 fL Critically low 9.5-13.5 [facility] Comment on above: Performed By: #### C BC #### [facility] [address] [place] [address] Dr. Belkis Ascencio PLT 305 103/ul Normal 150-450 [facility] Comment on above: Performed By: #### C BC #### [facility] [address] [place] [address] Dr. Belkis Ascencio RBC 4.31 106/ul Normal 4.20-5.40 [facility] Comment on above: Performed By: #### C BC #### [facility] [address] [place] [address] Dr. Belkis Ascencio WBC 8.9 103/ul Normal 4.0-11.0 [facility] Comment on above: Performed By: #### C BC #### [facility] [address] [place] [address] Dr. Belkis Ascencio CREATININEon 08-14-2022 Creatinine [Mass/Vol] 0.73 mg/dL Normal 0.55-1.02 [facility] Comment on above: Performed By: #### C BRITTANI, TSH, ELEC, BUN #### [facility] [address] [place] [address] Dr. Belkis Ascencio EGFR-AF FINNISH >60 Normal >=60 [facility] Comment on above: Performed By: #### C BRITTANI, TSH, ELEC, BUN #### [facility] [address] [address] [address] Belkis Ascencio EGFR-NON AF FINNISH >60 Normal >=60 [facility] Comment on above: Performed By: #### C BRITTANI, TSH, ELEC, BUN #### [facility] [address] [place] [address] Dr. Belkis Ascencio ELECTROLYTESon 08-14-2022 Anion gap [Moles/Vol] 10.4 mmol/L Normal [facility] Comment on above: Performed By: #### C BRITTANI, TSH, ELEC, BUN #### [facility] [address] [place] [address] Dr. Belkis Ascencio Chloride [Moles/Vol] 100 mmol/L Normal 98-107 [facility] Comment on above: Performed By: #### C BRITTANI, TSH, ELEC, BUN #### [facility] [address] [place] [address] Dr. Belkis Ascencio CO2 [Moles/Vol] 29.8 mmol/L Normal 21.0-32.0 [facility] Comment on above: Performed By: #### C BRITTANI, TSH, ELEC, BUN #### [facility] [address] [place] [address] Dr. Belkis Ascencio Potassium [Moles/Vol] 4.2 mmol/L Normal 3.5-5.1 [facility] Comment on above: Performed By: #### C BRITTANI, TSH, ELEC, BUN #### [facility] [address] [place] [address] Dr. Belkis Ascencio Sodium [Moles/Vol] 136 mmol/L Normal 136-145 [facility] Comment on above: Performed By: #### C BRITTANI, TSH, ELEC, BUN #### [facility] [address] [address] [address] Belkis Ascencio GLYCOHEMOGLOBIN A1Con 2021 ADA RECOMMENDATION SEE BELOW Normal [facility] Comment on above: Result Comment: ADA RECOMMENDED LIMIT 4.0 - 6.0 ADA THERAPEUTIC TARGET < 7.0 ACTION SUGGESTED > 7.0 Performed By: #### A 1C #### [facility] [address] [address] [address] Belkis Ascencio Glucose [Mass/Vol] 105 mg/dL Normal [facility] Comment on above: Performed By: #### A 1C #### [facility] [address] [address] [address] Belkis Ascencio HbA1c (Bld) [Mass fraction] 5.3 % Normal 4.5-6.2 [facility] Comment on above: Performed By: #### A 1C #### [facility] [address] [address] [address] Belkis Ascencio TSHon 08-14-2022 TSH 1.011 uIU/mL Normal 0.358-3.740 [facility] Comment on above: Performed By: #### C BRITTANI, TSH, ELEC, BUN #### [facility] [address] [address] [address] Belkis Ascencio Urinalysis - DIPSTICKon - Appearance (U) clougy [employer] Other Bilirubin Ql (U) Negative [employer] Other Color (U) yellow [employer] Other Glucose Ql (U) Negative [employer] Other Hemoglobin Ql (U) moderate [employer] Other Ketones Ql (U) Negative [employer] Other Leukocyte esterase Test strip Ql (U) Negative [employer] Other Nitrite Ql (U) Negative [employer] Other pH (U) 6.0 [pH] [employer] [facility] [employer] Other Protein Ql (U) Negative [employer] Other Specific gravity (U) [Rel density] 1.025 [facility] [employer] Other Urobilinogen (U) [Mass/Vol] wnl [employer] [facility] [employer] Other Urinalysis - DIPSTICK [facility] [employer] Other Urine Cultureon 03-22-2022 Bacteria identified Cx Nom (U) Reason for Exam Urinary frequency Urine <9,000 colonies/ml mixed bacterial skin contaminants 2 Days PERFORMED BY: [place] [address] PATHOLOGIST TRAFFIC MAINTENANCE SUPERVISOR RUSS MAHAN M.D. [facility] Comment on above: Performed By: #### C UU #### [address] Bacteria identified Cx Nom (U) [facility] [employer] Other Cardiac echo study Procedure Ordered By: Vickey Mahan on 03-19-2022 Ao peak wilner 1.48 m/s [facility] Work Phone: Ascending aorta 2.30 [facility] Work Phone: AV LVOT peak gradient 5 mmHg [facility] Work Phone: AV peak gradient 9 mmHG [facility] Work Phone: AV Velocity Ratio 0.76 [facility] Work Phone: ROYAL (continuity Vmax) 2.[address] Work Phone: ROYAL index (continuity Vmax) 1.28 m/s [facility] Work Phone: Avg e' pk wilner 0.12 m/s [facility] Work Phone: Avg E/e' ratio 6.38 [facility] Work Phone: Body surface area Derived from formula 1.[address] [facility] Work Phone: DI (Vmax) 0.[address] [facility] Work Phone: E wave decelartion time 246.00 msec [facility] Work Phone: e' lateral pk wilner 0.1360 m/s [facility] Work Phone: e' lateral pk wilner 0.14 m/s [facility] Work Phone: e' septal pk wilner 0.1110 m/s [facility] Work Phone: e' septal pk wilner 0.11 m/s [facility] Work Phone: E/A ratio 1.[address] [facility] Work Phone: E/e' lateral ratio 5.74 [facility] Work Phone: E/e' septal ratio 7.03 [facility] Work Phone: FS 30 % 28 - 44 % [facility] Work Phone: IVC ostium 1.11 cm [facility] Work Phone: IVS 0.[address] [facility] Work Phone: LA AREA 2CH 14.80 cm2 [facility] Work Phone: LA ESV SP 2CH (MOD) 37 mL [facility] Work Phone: LV mass 88.15 g [facility] Work Phone: LV Mass Index 52.8 g/m2 [facility] Work Phone: LV RWT 0.24 [facility] Work Phone: LVIDD 4.66 cm [facility] Work Phone: LVIDS 3.28 cm [facility] Work Phone: LVOT area 2.83 cm2 [facility] Work Phone: LVOT diameter 1.90 cm [facility] Work Phone: LVOT peak wilner 1.12 m/s [facility] Work Phone: LVOT peak VTI 20.60 cm [facility] Work Phone: LVOT stroke volume 58 cm3 [facility] Work Phone: LVOT stroke volume index 34.96 ml/m2 [facility] Work Phone: MV pk A wilner 0.56 m/s [facility] Work Phone: MV pk E wilner 0.78 m/s [facility] Work Phone: MV stenosis pressure 1/2 time 72.00 ms [facility] Work Phone: MV valve area p 1/2 method 3.06 cm2 [facility] Work Phone: PW 0.56 cm [facility] Work Phone: Right ventricle end diastolic volume index 50.90 mL/m2 [facility] Work Phone: Right ventricle end systolic volume index 20.36 [facility] Work Phone: RV basal diam 2.97 cm [facility] Work Phone: RV EDV 85 mL [facility] Work Phone: RV EF 60 % [facility] Work Phone: RV ESV 34 mL [facility] Work Phone: RV long diam 7.[address] [facility] Work Phone: RV mid diam 2.[address] [facility] Work Phone: RV S' 13.80 cm/s [facility] Work Phone: Sinus 2.36 cm [facility] Work Phone: STJ 2.46 cm [facility] Work Phone: Stroke Volume 58 cm/mL [facility] Work Phone: Stroke volume index 35 [facility] Work Phone: TAPSE 2.46 cm [facility] Work Phone: [facility] Work Phone: Cardiac echo study Procedure on 03-19-2022 Normal LV size and function, EF 59%. Normal RV size and function. No hemodynamically significant valve disease. Left Ventricle Chamber size is normal. Normal wall thickness. Normal global wall motion. Regional wall motion is normal. Ejection fraction is normal (55 - 60%). Diastolic function is normal. Right Ventricle Chamber size is normal. Normal wall thickness. Segmental wall motion is normal. Systolic function is normal. Left Atrium Chamber size is normal. Right Atrium Chamber size is normal. Mitral Valve Normal appearing leaflets. Leaflet mobility is normal. No regurgitation. No valve stenosis. Tricuspid Valve Normal leaflets. Leaflet mobility is normal. No stenosis. Aortic Valve Trileaflet valve. Leaflet mobility is normal. No regurgitation. No stenosis. Pulmonic Valve Normal structure. No regurgitation. No stenosis. Pericardium Appears normal. No pericardial effusion. Septum The atrial septum is normal. Aorta No dilation to extent seen. Study Details A complete echocardiography study (including 3D) was performed. 3D imaging performed for evaluation of left ventricle function. 3D rendering with interpretation and reporting of echocardiogram with image postprocessing under concurrent physician supervision, REQUIRING image postprocessing on an independent workstation was performed. Imaging system used: Liane. [facility] Radiology Study observation (narrative) [facility] Urinalysis - AUTOMATEDon Appearance (U) clear [employer] Other Bilirubin Ql (U) Negative [employer] Other Color (U) yellow [employer] Other Glucose Ql (U) Negative [employer] Other Hemoglobin Ql (U) Need Other Ketones Ql (U) Negative [employer] Other Leukocyte esterase Test strip Ql (U) [employer] Other Nitrite Ql (U) Negative [employer] Other pH (U) 7.0 [pH] [employer] Other Protein Ql (U) Negative [employer] Other Specific gravity (U) [Rel density] 1.010 [employer] Other Urobilinogen (U) [Mass/Vol] 0.2 mg/dL [employer] Other Urinalysis - AUTOMATED [employer] Other Urine Cultureon 03-12-2022 Bacteria identified Cx Nom (U) ORGANISM: Escherichia coli (O:ESCCOL) [place] Count >100,000 Aerobic ISABELL Charge (NUC86) ---- SUSCEPTIBILITY --- ORGANISM: O:ESCCOL ANTIBIOTIC INTERPRETATION ISABELL Amikacin S <16 Ampicillin R >16 Ampicillin/Sulbactam I 1616/8 Aztreonam S <4 Cefazolin S 4 Cefepime S <2 Ceftazidime S <1 Ceftazidime/Avibactam S <8 Ceftriaxone S <1 Ciprofloxacin S <1 Ertapenem S <0.5 Gentamicin S <4 Levofloxacin S <2 Meropenem S <1 Nitrofurantoin S <32 Piperacillin/Tazobact am S <16 Tetracycline R >8 Tigecycline S <2 Tobramycin S <4 Trimethoprim/Sulfamet hoxazole S <2/38 S = SUSCEPTIBLE I = INTERMEDIATE R = RESISTANT BLANK = DATA NOT AVAILABLE, OR DRUG NOT ADVISABLE OR TESTED R* = RESISTANCE DUE TO EXTENDED SPECTRUM BETA-LACTAMASES ESBL = EXTENDED SPECTRUM BETA-LACTAMASE TFG = THYMIDINE-DEPENDENT STRAIN ALOK = BETA-LACTAMASE POSITIVE IB = INDUCIBLE BETA-LACTAMASE. APPEARS IN PLACE OF 'S' WITH SPECIES KNOWN TO POSSESS INDUCIBLE BETA-LACTAMASES. POTENTIALLY THEY MAY BECOME RESISTANT TO ALL B-LACTAM DRUGS. PERFORMED BY: [place] [address] PATHOLOGIST TRAFFIC MAINTENANCE SUPERVISOR RUSS MAHAN M.D. [facility] Comment on above: Performed By: #### C UU #### [address] Urine Culture >100,000 [employer] Other Urine Culture <16 Susceptible [employer] Other Urine Culture >16 Resistant [employer] Other Urine Culture <4 Susceptible [employer] Other Urine Culture 4 Susceptible [employer] Other Urine Culture <2 Susceptible [employer] Other Urine Culture <1 Susceptible [employer] Other Urine Culture <0.5 Susceptible [employer] Other Urine Culture <32 Susceptible [employer] Other Urine Culture >8 Resistant [employer] Other Urine Culture <2/38 Susceptible [employer] Other CBC AUTO DIFFon 02-20-2022 BASO # 0.0 103/ul Normal 0.0-0.1 [facility] Comment on above: Performed By: #### C BC #### [facility] [address] [address] [address] Belkis Ascencio Basophils/100 WBC (Bld) 0.4 % Normal 0.2-2.0 [facility] Comment on above: Performed By: #### C BC #### [facility] [address] [place] [address] Dr[address] Belkis Ascencio EO # 0.1 103/ul Normal 0.0-0.7 [facility] Comment on above: Performed By: #### C BC #### [facility] [address] [address] [address] Belkis Ascencio Eosinophils/100 WBC (Bld) 1.0 % Normal 0.9-7.0 [facility] Comment on above: Performed By: #### C BC #### [facility] [address] [address] [address] Belkis Ascencio Erythrocyte distribution width (RBC) [Ratio] 11.5 % Normal 11.0-15.0 [facility] Comment on above: Performed By: #### C BC #### [facility] [address] [address] [address] Belkis Ascencio Hematocrit (Bld) [Volume fraction] 38.8 % Normal 36.0-48.0 [facility] Comment on above: Performed By: #### C BC #### [facility] [address] [address] [address] Belkis Ascencio Hemoglobin (Bld) [Mass/Vol] 13.2 g/dL Normal 12.0-16.0 [facility] Comment on above: Performed By: #### C BC #### [facility] [address] [place] [address] [address] Belkis Ascencio IG # 0.01 10e3/ul Normal 0.00-0.03 [facility] Comment on above: Performed By: #### C BC #### [facility] [address] [place] [address] Dr. Belkis Ascencio IG % 0.1 % Normal 0.0-0.5 [facility] Comment on above: Performed By: #### C BC #### [facility] [address] [place] [address] Dr. Belkis Ascencio LYMPH # 1.6 103/ul Normal 1.2-3.8 [facility] Comment on above: Performed By: #### C BC #### [facility] [address] [place] [address] Dr. Belkis Ascencio Lymphocytes/100 WBC (Bld) 22.1 % Normal 20.5-60.0 [facility] Comment on above: Performed By: #### C BC #### [facility] [address] [place] [address] Dr. Belkis Ascencio MANUAL DIFF REQ NO Normal [facility] Comment on above: Performed By: #### C BC #### [facility] [address] [place] [address] Dr. Belkis Ascencio MCH (RBC) [Entitic mass] 31.3 pg Normal 26.7-34.0 [facility] Comment on above: Performed By: #### C BC #### [facility] [address] [place] [address] Dr. Belkis Ascencio MCHC (RBC) [Mass/Vol] 34.0 g/dL Normal 29.9-35.2 [facility] Comment on above: Performed By: #### C BC #### [facility] [address] [place] [address] Dr. Belkis Ascencio MCV (RBC) [Entitic vol] 91.9 fL Normal 81.0-99.0 [facility] Comment on above: Performed By: #### C BC #### [facility] [address] [place] [address] Dr. Belkis Ascencio MONO # 0.6 103/ul Normal 0.3-0.8 [facility] Comment on above: Performed By: #### C BC #### [facility] [address] [place] [address] Dr. Belkis Ascencio Monocytes/100 WBC (Bld) 8.7 % Normal 1.7-12.0 [facility] Comment on above: Performed By: #### C BC #### [facility] [address] [place] [address] Dr. Belkis Ascencio NEUT # 4.8 103/ul Normal 1.4-6.5 [facility] Comment on above: Performed By: #### C BC #### [facility] [address] [place] [address] Dr. Belkis Ascencio Neutrophils/100 WBC (Bld) 67.7 % Normal 43.0-75.0 [facility] Comment on above: Performed By: #### C BC #### [facility] [address] [place] [address] Dr. Belkis Ascencio Platelet mean volume (Bld) [Entitic vol] 9.4 fL Critically low 9.5-13.5 [facility] Comment on above: Performed By: #### C BC #### [facility] [address] [place] [address] Dr. Belkis Ascencio PLT 270 103/ul Normal 150-450 [facility] Comment on above: Performed By: #### C BC #### [facility] [address] [place] [address] Dr. Belkis Ascencio RBC 4.22 106/ul Normal 4.20-5.40 [facility] Comment on above: Performed By: #### C BC #### [facility] [address] [place] [address] Dr. Belkis Ascencio WBC 7.1 103/ul Normal 4.0-11.0 [facility] Comment on above: Performed By: #### C BC #### [facility] [address] [place] [address] Dr. Belkis Ascencio PROF CHEM 8 (BAS METB)on Anion gap [Moles/Vol] 9.0 mmol/L Normal [facility] Comment on above: Performed By: #### C BC #### [facility] [address] [place] [address] [address] Belkis Ascencio Calcium [Mass/Vol] 8.8 mg/dL Normal 8.5-10.1 [facility] Comment on above: Performed By: #### C BC #### [facility] [address] [place] [address] [address] Belkis Ascencio Chloride [Moles/Vol] 102 mmol/L Normal 98-107 [facility] Comment on above: Performed By: #### C BC #### [facility] [address] [place] [address] [address] Belkis Ascencio CO2 [Moles/Vol] 29.2 mmol/L Normal 21.0-32.0 [facility] Comment on above: Performed By: #### C BC #### [facility] [address] [place] [address] Dr. Belkis Ascencio Creatinine [Mass/Vol] 0.76 mg/dL Normal 0.55-1.02 [facility] Comment on above: Performed By: #### C BC #### [facility] [address] [place] [address] [address] Belkis Ascencio EGFR-AF FINNISH >=60 Normal >=60 [facility] Comment on above: Performed By: #### C BC #### [facility] [address] [place] [address] Dr. Belkis Ascencio EGFR-NON AF FINNISH >=60 Normal >=60 [facility] Comment on above: Performed By: #### C BC #### [facility] [address] [place] [address] [address] Belkis Ascencio Glucose [Mass/Vol] 109 mg/dL Critically high 74-106 [facility] Comment on above: Performed By: #### C BC #### [facility] [address] [place] [address] Dr. Belkis Ascencio Potassium [Moles/Vol] 4.4 mmol/L Normal 3.5-5.1 [facility] Comment on above: Performed By: #### C BC #### [facility] [address] [place] [address] Dr. Belkis Ascencio Sodium [Moles/Vol] 136 mmol/L Normal 136-145 [facility] Comment on above: Performed By: #### C BC #### [facility] [address] [place], [place] [address] Dr. Belkis Ascencio Urea nitrogen [Mass/Vol] 12.0 mg/dL Normal 7.0-18.0 [facility] Comment on above: Performed By: #### C BC #### [facility] [address] [place], [place] [address] Dr. Belkis Ascencio Urea nitrogen/Creatinine [Mass ratio] 15.8 mg/mg Normal [facility] Comment on above: Performed By: #### C BC #### [facility] [address] [place] [address] [address] [address] Belkis Ascencio Vital Signs Date Time Vital Sign Value Performing Clinician Facility 12-20-2023 10:54-0400 Blood Pressure Location Stratton Sarmini [facility] 12-20-2023 10:54-0400 Diastolic blood pressure 60 mm[Hg] Stratton Sarmini [facility] 12-20-2023 10:54-0400 Heart rate 68 /min Stratton Sarmini [facility] 12-20-2023 10:54-0400 Respiratory rate 18 /min Stratton Sarmini [facility] 12-20-2023 10:54-0400 Systolic blood pressure 110 mm[Hg] Stratton Sarmini [facility] 12-10-2023 [id number]:[id number] Body height 157.48 cm [facility] 12-10-2023 10:28-0400 Body mass index (BMI) [Ratio] 27.6 kg/m2 [facility] 12-10-2023 [id number]:[id number] Body weight 68.49 kg [facility] 12-10-2023 10:28-0400 Diastolic blood pressure 78 mm[Hg] [facility] 12-10-2023 10:28-0400 Heart rate 80 /min [facility] 12-10-2023 10:28-0400 Systolic blood pressure 115 mm[Hg] [facility] 12-02-2023 14:23-0400 Diastolic blood pressure 67 mm[Hg] Trip Sosa MD Work Phone: [facility] 12-02-2023 14:23-0400 Heart rate 73 /min Trip Sosa MD Work Phone: [facility] 12-02-2023 14:23-0400 Systolic blood pressure 108 mm[Hg] Trip Sosa MD Work Phone: [facility] 12-02-2023 14:21-0400 Body height 157.5 cm Trip Sosa MD Work Phone: [facility] 12-02-2023 14:21-0400 Respiratory rate 18 /min Trip Sosa MD Work Phone: [facility] 12-02-2023 14:21-0400 SaO2% (BldA) [Mass fraction] 97 % Trip Sosa MD Work Phone: [facility] 05-04-2023 12:18-0400 Blood Pressure Location Jessica Lopez [facility] 05-04-2023 12:18-0400 Body temperature 97.52 [degF] Jessica Lopez [facility] 05-04-2023 12:18-0400 Diastolic blood pressure 75 mm[Hg] Jessica Lopez [facility] 05-04-2023 12:18-0400 Heart rate 79 /min Jessica Lopez [facility] 05-04-2023 12:18-0400 Systolic blood pressure 110 mm[Hg] Jessica Lopez [facility] 04-22-2023 15:37-0400 Diastolic blood pressure 68 mm[Hg] Trip Sosa MD Work Phone: [facility] 04-22-2023 15:37-0400 Heart rate 86 /min Trip Sosa MD Work Phone: [facility] 04-22-2023 15:37-0400 Systolic blood pressure 115 mm[Hg] Trip Sosa MD Work Phone: [facility] 04-22-2023 15:36-0400 Body height 157.5 cm Trip Sosa MD Work Phone: [facility] 04-22-2023 15:36-0400 Body mass index (BMI) [Ratio] 25.02 kg/m2 Trip Sosa MD Work Phone: [facility] 04-22-2023 15:36-0400 Body weight 62.05 kg Trip Sosa MD Work Phone: [facility] 04-22-2023 15:36-0400 Respiratory rate 20 /min Trip Sosa MD Work Phone: [facility] 04-22-2023 15:36-0400 SaO2% (BldA) [Mass fraction] 98 % Trip Sosa MD Work Phone: [facility] 01-13-2023 10:12-0400 Blood Pressure Location Jessica Lopez [facility] 01-13-2023 10:12-0400 Body temperature 97.16 [degF] Jessica Lopez [facility] 01-13-2023 10:12-0400 Diastolic blood pressure 74 mm[Hg] Jessica Lopez [facility] 01-13-2023 10:12-0400 Heart rate 71 /min Jessica Mccraryz [facility] 01-13-2023 10:12-0400 Systolic blood pressure 107 mm[Hg] Jessica Mccraryz [facility] 12-28-2022 11:05-0400 Blood Pressure Location Dove SALAM [facility] 12-28-2022 11:05-0400 Diastolic blood pressure 50 mm[Hg] Dove SALAM [facility] 12-28-2022 11:05-0400 Heart rate 75 /min Dove SALAM [facility] 12-28-2022 11:05-0400 Mean blood pressure 66 mm[Hg] Dove SALAM [facility] 12-28-2022 11:05-0400 Respiratory rate 18 /min Dove SALAM [facility] 12-28-2022 11:05-0400 SaO2% (BldA) [Mass fraction] 99 % Dove SALAM [facility] 12-28-2022 11:05-0400 Systolic blood pressure 98 mm[Hg] Dove SALAM [facility] 12-28-2022 10:55-0400 Blood Pressure Location Dove SALAM [facility] 12-28-2022 10:55-0400 Diastolic blood pressure 40 mm[Hg] Dove SALAM [facility] 12-28-2022 10:55-0400 Heart rate 82 /min Dove SALAM [facility] 12-28-2022 10:55-0400 Mean blood pressure 59 mm[Hg] Dove SALAM [facility] 12-28-2022 10:55-0400 Respiratory rate 15 /min Dove SALAM [facility] 12-28-2022 10:55-0400 SaO2% (BldA) [Mass fraction] 98 % Dove SALAM [facility] 12-28-2022 10:55-0400 Systolic blood pressure 98 mm[Hg] Dove SALAM [facility] 12-28-2022 10:50-0400 Blood Pressure Location Dove SALAM [facility] 12-28-2022 10:50-0400 Diastolic blood pressure 45 mm[Hg] Dove SALAM [facility] 12-28-2022 10:50-0400 Heart rate 70 /min Dove SALAM [facility] 12-28-2022 10:50-0400 Mean blood pressure 58 mm[Hg] Dove SALAM [facility] 12-28-2022 10:50-0400 Respiratory rate 20 /min Dove SALAM [facility] 12-28-2022 10:50-0400 SaO2% (BldA) [Mass fraction] 96 % Dove SALAM [facility] 12-28-2022 10:50-0400 Systolic blood pressure 84 mm[Hg] Dove SALAM [facility] 12-28-2022 10:41-0400 Body temperature 97.52 [degF] Dove SALAM [facility] 12-28-2022 10:39-0400 Respiratory rate 18 /min Dove SALAM [facility] 12-28-2022 10:35-0400 Respiratory rate 16 /min Dove SALAM [facility] 12-28-2022 10:28-0400 Respiratory rate 18 /min Dove SALAM [facility] 12-28-2022 09:55-0400 Body temperature 96.98 [degF] Dove SALAM [facility] 12-21-2022 12:45-0400 Blood Pressure Location Jessicaapril IzaguirreJohn [facility] 12-21-2022 12:45-0400 Body temperature 96.98 [degF] Jessica Izaguirremetz [facility] 12-21-2022 12:45-0400 Diastolic blood pressure 77 mm[Hg] Jessica Izaguirremetz [facility] 12-21-2022 12:45-0400 Heart rate 66 /min Jessica Izaguirremetz [facility] 12-21-2022 12:45-0400 Systolic blood pressure 116 mm[Hg] Jessica Izaguirremetz [facility] 10-01-2022 14:42-0500 Diastolic blood pressure 66 mm[Hg] Trip Sosa MD Work Phone: [facility] 10-01-2022 14:42-0500 Heart rate 94 /min Trip Sosa MD Work Phone: [facility] 10-01-2022 14:42-0500 Systolic blood pressure 102 mm[Hg] Trip Sosa MD Work Phone: [facility] 10-01-2022 14:40-0500 Body height 157.5 cm Trip Sosa MD Work Phone: [facility] 10-01-2022 14:40-0500 Body mass index (BMI) [Ratio] 27.98 kg/m2 Trip Sosa MD Work Phone: [facility] 10-01-2022 14:40-0500 Body weight 69.4 kg Trip Sosa MD Work Phone: [facility] 10-01-2022 14:40-0500 Respiratory rate 16 /min Trip Sosa MD Work Phone: [facility] 10-01-2022 14:40-0500 SaO2% (BldA) [Mass fraction] 97 % Trip Sosa MD Work Phone: [facility] 03-22-2022 15:50-0400 Body height 157.48 cm Yas Garcia Other [facility] Other 03-22-2022 15:50-0400 Body mass index (BMI) [Ratio] 26.52 kg/m2 Yas Garcia Other [facility] Other 03-22-2022 15:50-0400 Body temperature 97.7 [degF] Yas Garcia Other [facility] Other 03-22-2022 15:50-0400 Body weight 65.77 kg Yas Garcia Other [facility] Other 03-22-2022 15:50-0400 SaO2% (BldA) [Mass fraction] 97 % Yas Garcia Other [facility] Other 03-19-2022 15:18-0400 Diastolic blood pressure 69 mm[Hg] Trip Sosa MD Work Phone: [facility] 03-19-2022 15:18-0400 Heart rate 76 /min Trip Sosa MD Work Phone: [facility] 03-19-2022 15:18-0400 Systolic blood pressure 120 mm[Hg] Trip Sosa MD Work Phone: [facility] 03-19-2022 15:17-0400 Body height 157.5 cm Trip Sosa MD Work Phone: [facility] 03-19-2022 15:17-0400 Body mass index (BMI) [Ratio] 27.25 kg/m2 Trip Sosa MD Work Phone: [facility] 03-19-2022 15:17-0400 Body weight 67.59 kg Trip Sosa MD Work Phone: [facility] 03-19-2022 15:17-0400 Respiratory rate 16 /min Trip Sosa MD Work Phone: [facility] 03-19-2022 15:17-0400 SaO2% (BldA) [Mass fraction] 97 % Trip Sosa MD Work Phone: [facility] 03-19-2022 14:02-0400 Body height 157.5 cm Justyna Heller APRN-ORDER ENTRY REPRESENTATIVE Work Phone: [facility] 03-19-2022 14:02-0400 Body mass index (BMI) [Ratio] 26.65 kg/m2 Justyna Heller [employer] OPERATOR-ORDER ENTRY REPRESENTATIVE Work Phone: [facility] 03-19-2022 14:02-0400 Body weight 66.1 kg Justyna Heller APRN-ORDER ENTRY REPRESENTATIVE Work Phone: [facility] 03-19-2022 14:02-0400 Diastolic blood pressure 67 mm[Hg] Justyna Heller APRN-ORDER ENTRY REPRESENTATIVE Work Phone: [facility] 03-19-2022 14:02-0400 Systolic blood pressure 136 mm[Hg] Justyna Heller APRN-ORDER ENTRY REPRESENTATIVE Work Phone: [facility] 03-12-2022 18:40-0400 Body height 157.48 cm Denise Catherine Other [facility] Other 03-12-2022 18:40-0400 Body mass index (BMI) [Ratio] 26.52 kg/m2 Denise Catherine Other [facility] Other 03-12-2022 18:40-0400 Body temperature 97.9 [degF] Denise Catherine Other [facility] Other 03-12-2022 18:40-0400 Body weight 65.77 kg Denise Catherine Other [facility] Other 03-12-2022 18:40-0400 Diastolic blood pressure 71 mm[Hg] Denise Alexander Other [facility] Other 03-12-2022 18:40-0400 Respiratory rate 16 /min Denise Alexander Other [facility] Other 03-12-2022 18:40-0400 SaO2% (BldA) [Mass fraction] 99 % Denise Catherine Other [facility] Other 03-12-2022 18:40-0400 Systolic blood pressure 124 mm[Hg] Denise Catherine Other [facility] Other Encounters Encounter Date Encounter Type Care Provider Facility Start: 12-20-2023 End: 12-21-2023 ambulatory Viral Smith Facility:[facility] Start: 12-20-2023 End: 12-20-2023 Patient encounter procedure Viral Smith [facility] Start: 12-10-2023 End: 12-10-2023 ambulatory [facility] Work Phone: Start: 12-10-2023 End: 12-10-2023 Patient encounter procedure [facility] Work Phone: Start: 12-02-2023 End: 12-02-2023 Office outpatient visit 15 minutes Trip Sosa MD Work Phone: [facility] Comment on above: Cardiac microvascula r disease (Primary Dx) Start: 11-04-2023 End: 11-05-2023 ambulatory Jessicaapril Mccraryz Facility:[facility] Start: 11-04-2023 End: 11-04-2023 Patient encounter procedure Jessicaapril Lopez [facility] Start: 10-29-2023 Telephone encounter Alicia baumann MD Work Phone: [facility] Comment on above: Provider Question Start: 10-25-2023 Telephone encounter Alicia baumann MD Work Phone: [facility] Comment on above: Symptoms Vascular malformatio n (Primary Dx); Congenital vascular anomaly Start: 10-07-2023 End: 10-07-2023 ambulatory ILANA STEELE Not Available Start: 05-04-2023 End: 05-05-2023 ambulatory Jessica Lopez Facility:[facility] Start: 05-04-2023 End: 05-04-2023 Patient encounter procedure Jessicaapril Mccraryz [facility] Start: 04-22-2023 ambulatory TRIP Vicente ity:[facility] Start: 04-22-2023 End: 04-23-2023 Office outpatient visit 15 minutes Trip Sosa MD Work Phone: [facility] Comment on above: Other cardiomyopathy (Primary Dx); Palpitations Start: 04-12-2023 Telephone encounter Alicia baumann MD Work Phone: [facility] Comment on above: Question and update Start: 01-13-2023 End: 01-14-2023 ambulatory Jessica Lopez Facility:[facility] Start: 01-13-2023 End: 01-13-2023 Patient encounter procedure Jessica Lopez [facility] Start: 12-28-2022 End: 12-29-2022 ambulatory Petty AMBROSE Facility:[facility] Start: 12-28-2022 End: 12-28-2022 Patient encounter procedure Petty AMBROSE [facility] Start: 12-22-2022 End: 12-23-[address] DOCTOR HENAO Facility:[facility] Start: 12-21-2022 End: 12-22-[address] DOCTOR HENAO Facility:[facility] Start: 12-21-2022 End: 12-22-2022 ambulatory Jessica Lopez Facility:[facility] Start: 12-21-2022 End: 12-21-2022 Patient encounter procedure Jessica Lopez [facility] Start: 12-19-2022 End: 12-20-[address] DOCTOR HENAO Facility:[facility] Start: 11-19-2022 End: 11-20-[address] DOCTOR HENAO Facility:[facility] Start: 11-14-2022 Orders Only Alicia Bolivar MD Work Phone: [facility] Comment on above: Developmental venous anomaly (Primary Dx) Start: 11-06-2022 ambulatory Kia Colin RN [facility] Start: 11-05-2022 End: 11-06-[address] DOCTOR HENAO Facility:[facility] Start: 10-01-2022 ambulatory CJ LAZO Facility:[facility] Start: 10-01-2022 End: 10-01-2022 Office outpatient visit 15 minutes Trip Sosa MD Work Phone: [facility] Comment on above: Other cardiomyopathy (Primary Dx) Start: 09-15-2022 End: 09-16-[address] CJ LAZO Facility:[facility] Start: 08-14-2022 End: 08-15-[address] DOCTOR HENAO Facility:[facility] Start: 03-24-2022 End: 03-24-2022 ambulatory Yas Garcia Other [facility] Other Start: 03-24-2022 Telephone encounter Yas Garcia [facility] Start: 03-22-2022 End: 03-22-2022 ambulatory Yas Garcia Other [facility] Other Start: 03-22-2022 Office outpatient vi sit 15 minutes Yas Garcia [facility] Start: 03-19-2022 End: 03-19-2022 Office outpatient visit 15 minutes Trip Sosa MD Work Phone: [facility] [employer] Comment on above: Cardiac syndrome X ( Primary Dx); Palpitations Start: 03-19-2022 End: 03-19-2022 Subsequent hospital visit by physician Justyna Heller APRN-ORDER ENTRY REPRESENTATIVE Work Phone: [facility] Comment on above: Arrived Start: 03-12-2022 End: 03-12-2022 Departed [facility] MEDICAL LABORATORY ASSISTANT-C Denise Alexander Work Phone: [facility] Start: 03-12-2022 End: 03-12-2022 ambulatory Denise Alexander Other [facility] Other Start: 03-12-2022 Office outpatient ne w 20 minutes Denise Alexander [facility] Start: 02-20-2022 End: 02-21-[address] [place]AD[place] [facility] Facility[place] Procedures Date Procedure Procedure Detail Performing Clinician Start: 12-28-2022 Esophagogastroduodenoscopy Petty AMBROSE Comment on above: esophageal dilation; multiple stomach bi opsies Start: 12-19-2022 Lipid 1996 panel - Serum or Plasma Jamel Sosa MD Work Phone: Start: 11-05-2022 CHEM 7 PANEL, MANUAL ENTER Historical Provider Start: 03-19-2022 Echo tthrc r-t 2d w/wom-mode compl spec&colr d Justyna Kary Pina [employer] OPERATOR-ORDER ENTRY REPRESENTATIVE Work Phone: Start: 03-12-2022 Piperacillin/tazobactam Denise valle Other Start: 09-18-2021 Lipid 1996 panel - Serum or Plasma Justyna Heller [employer] OPERATOR-ORDER ENTRY REPRESENTATIVE Work Phone: Start: 09-27-2020 Colonoscopy Jessica Lopez Esophagogastroduoden oscopy gastric outlet reduction Jessica Lopez Plan of Treatment Date Care Activity Detail Author Start: 12-20-2027 Lipid panel LIPID SCREENING [facility] Start: 09-18-2026 Fasting lipid profile LIPID SCREENIN G [facility] Start: 09-18-2026 Lipid panel LIPID SCREENING [facility] Start: 01-05-2026 Tetanus vaccination TETANUS [facility] Start: 01-05-2026 Urine microalbumin profile DTaP,Tdap,Td Vaccine (2 - Td or Tdap) [facility] Start: 09-18-2024 Diabetes Screening Diabetes Screenin g [facility] Start: 06-08-2024 End: 06-08-2024 Patient encounter procedure 06/08/2024 3:15 PM EDT Office Visit [facility] [address] [place] [address] [phone] Trip Sosa MD [address] [place] [address] [phone] [facility] Start: 12-10-2023 Patient referral [facility] Work Phone: Start: 11-04-2023 End: 11-04-2023 Patient encounter procedure 11/04/2023 3:15 PM EST Office Visit [facility] [address] [place] [address] [phone] Trip Sosa MD [address] [place] [phone] [facility] Start: 09-22-2023 Screening for malign ant neoplasm of breast MAMMOGRAM SCREENING DISCUSSION [facility] Start: 09-06-2023 Depression Assessment Depression Ass essment [facility] Start: 06-06-2023 End: 12-14-2023 Mri brain brain stem w/o w/contrast material MRI BRAIN WO/W IVCON Radiology Routine Developmental venous anomaly Expected: 06/06/2023 (Approximate), Expires: 12/14/2023 [facility] Work Phone: Comment on above: Expected: 06/06/2023 (Approximate), Expires: 12/14/2023 Start: 05-07-2023 COVID-19 VACCINE ( season) COVID-19 VACCINE ( season) [facility] Start: 05-07-2023 Influenza vaccination C [facility] Start: 04-22-2023 End: 04-22-2023 Patient encounter procedure 04/22/2023 Office Visit Cardiovascular Medicine Trip Sosa MD [address] [place] [phone] [facility] Start: 10-01-2022 End: 10-01-2022 Patient encounter procedure 10/01/2022 Office Visit Cardiovascular Medicine Trip Sosa MD [address] [place] [phone] [facility] Marko Calvert [facility] Start: 09-06-2022 DEPRESSION ASSESSMENT DEPRESSION ASS ESSMENT [facility] Start: 05-07-2022 Influenza vaccination [facility] Start: 03-12-2022 Bacteria identified in Urine by Culture Urine Culture [facility] Start: 02-16-2021 DIABETES SCREEN DIABETES SCREEN [facility] Start: 12-17-2020 DIABETES SCREEN DIABETES SCREEN [facility] Start: 2020 COLOGUARD (FIT-DNA) COLOGUARD (FIT-D NA) [facility] Start: 2020 Colonoscopy [facility] Start: 2020 COLORECTAL CANCER SCREENING COLORECTAL CANCER SCREENING [facility] Start: [address] COLONOGRAPHY [facility] Start: 2020 FECAL OCCULT BLOOD FECAL OCCULT BLOO D [facility] Start: 2020 LIPID SCREEN LIPID SCREEN [facility] Start: 2020 Screening for malign ant neoplasm of colon [facility] Start: 2020 SIGMOIDOSCOPY SIGMOIDOSCOPY [facility] Start: 2015 Mammography MAMMOGRAM [facility] Start: 2015 Screening for malign ant neoplasm of breast [facility] Start: 2015 Screening mammography MAMMOGRA M SCREENING DISCUSSION [facility] Start: 2005 HPV TESTING HPV TESTING [facility] Start: 2005 Screening for malign ant neoplasm of cervix HPV Testing [facility] Start: 1996 PAP TESTING PAP TESTING [facility] Start: 1996 Screening for malign ant neoplasm of cervix [facility] Start: 1994 Third diphtheria, tetanus and acellular pertussis (DTaP) vaccination TDAP (ADULT) [facility] Start: 1994 Urine microalbumin profile DTAP,TDAP,TD (1 - Tdap) [facility] Start: 1993 HIV SCREENING HIV SCREENING [facility] Start: 1993 HIV screening HIV Screening [facility] Start: 1993 Tetanus vaccination TETANUS [facility] Start: 1990 HIV screening HIV SCREENING DISCUSSI ON [facility] Start: 1975 COVID-19 VACCINE (#1) COVID-19 VACCI NE (#1) [facility] Start: 1975 HEPATITIS B (1 of 3 - 3-dose series) HEPATITIS B (1 of 3 - 3-dose series) [facility] Start: 1975 Hepatitis C antibody , confirmatory test HEPATITIS C VIRUS SCREENING [facility] Start: 1975 Hepatitis C screening HEPATITI S C VIRUS SCREENING [facility] Start: 1975 Tetanus vaccination TETANUS [facility] Bacteria identified in Urine by Culture [facility] Work Phone: End: 11-23-2024 MR Brain WO contrast MRI BRAIN WO IVCON Radiology Routine Vascular malformation Congenital vascular anomaly 1 Occurrences starting 10/25/2023 until 11/23/2024 [facility] Work Phone: Comment on above: 1 Occurrences starti ng 10/25/2023 until 11/23/2024 Patient referral [facility] Work Phone: XR Lumbar spine 2 or 3 Views [facility] Immunizations Immunization Date Immunization Notes Care Provider Candy garcia 07-09-2016 hepatitis A and hepatitis B vaccine Jessica Lopez [facility] 02-04-2016 hepatitis A and hepatitis B vaccine Jessica Lopez [facility] 01-06-2016 hepatitis A and hepatitis B vaccine Jessica Lopez [facility] 01-06-2016 tetanus toxoid, reduced diphtheria toxoid, and acellular pertussis vaccine, adsorbed Jessica Lopez [facility] 01-06-2016 typhoid vaccine, unspecified formulation Jessica Lopez [facility] NEGATED: Highlighted row has not occurred!11-03-2023 influenza virus vaccine, unspecified formulation Jessica Lopez [facility] Payers Date Payer Category Payer Unknown [id number] 1975 Unknown [id number] 2.16.84 [id number] 1975 Unknown [id number] 2.16.84 [id number] 1975 Unknown [id number] 2.16.84 0.1.884654.3.579.2.593 1975 Unknown [id number] 2.16.84 0.1.309769.3.579.2.593 1975 Unknown [id number] 2.16.84 0.1.099330.3.579.2.593 1975 Unknown [id number] 2.16.84 0.1.092872.3.579.2.593 1975 Unknown [id number] 2.16.84 0.1.212000.3.579.2.593 1975 Unknown [id number] 2.16.84 0.1.296775.3.579.2.593 1975 Unknown [id number] 2.16. 840.1.818067.3.579.2.594 1975 Unknown [id number] 2.16. 840.1.639384.3.579.2.594 1975 Unknown [id number] 2.16. 840.1.291535.3.579.2.594 1975 Unknown [id number] 2.16.84 0.1.313141.3.579.2.1259 1975 Unknown [id number] 2.16.8 40.1.648440.3.579.2.727 1975 Unknown [id number] 2.16.8 40.1.279701.3.579.2.727 1975 Unknown [id number] 2.16.8 40.1.007179.3.579.2.727 1975 Unknown [id number] 2.16.8 40.1.483479.3.579.2.727 1975 Unknown [id number] 2.16.8 40.1.527490.3.579.2.727 1975 Unknown [id number] 2.16.8 40.1.470188.3.579.2.727 1959 Unknown [id number] 2. [id number] Self-pay Self Pay [id number] Social History Date Type Detail Facility Tobacco smoking stat us OKIS Unknown if ever smoked [facility] Work Phone: Start: 1975 Sex Assigned At Female F [facility] Start: 06-21-2018 End: 04-22-2023 Sex Assigned At [facility] Start: 03-20-2021 End: 12-20-2023 Tobacco smoking status NHIS Never smoked tobacco [facility] Start: 03-20-2021 End: 04-22-2023 Tobacco use and exposure Smokeless tobacco non-user [facility] Start: 03-19-2022 End: 04-22-2023 Alcohol intake Current non-drinker of alcohol (finding) [facility] Start: 03-19-2022 End: 04-22-2023 Alcohol intake [facility] Start: 1975 Sex Assigned At Not on file [facility] Start: 09-21-2022 End: 10-01-2022 Exposure to SARS-CoV-2 (event) Not sure [facility] Start: 06-21-2018 Alcohol intake Not Asked Humberto perrin [facility] Tobacco smoking status Never Patrice [facility] Gender identity Identifies as fe male gender (finding) [facility] Functional Status Date Assessment Result Facility 12-20-2023 Functional Status N/A [facility] 05-04-2023 Functional Status N/A [facility] 01-13-2023 Functional Status N/A [facility] 12-28-2022 Functional Status N/A [facility] 12-21-2022 Functional Status N/A [facility] Clinical Notes 03-12-2022 to 12-03-2023 Mario Pascal RN - 12/02/2023 2:15 PM EDTMREINA Weathers - 12/02/2023 2:15 PM Vania Sosa MD - 12/02/2023 2:15 PM EDTPatient InstructionsPatient Instructions Note Date & Type Note Facility 12-03-2023 Hospital Discharge instructions Follow Up Care 12/03/2023 15:41:19 With:Luis CLINE, Viral Garcia [facility], [facility] Address: [address] [place] [address], [facility] [address] [phone] When:3 months [facility] 12-02-2023 History of Present illness Narrative Patient Education Patient education regarding the following topic(s) was provided on 12/02/2023: plan of care . Those in attendance for the education included: patient and spouse. Barriers in providing the education included: none. The following methods were used in providing the education: explanation and handout. [facility] handouts given included: After visit summary. The response of those in attendance was: states/identifies education topic. The following Clinical Intervention(s) occurred during today s visit: Orthostatic or Coarctation vital signs completed and Extensive teaching provided to patient and or support team regarding plan of care Subjective History of Present Illness We have had the pleasure of seeing your patient, Marianna Ramirez who is a 48 y.o. female who presents to the [facility] for follow-up of HFrEF (post ) w/ recovered EF and microvascular disease. Today, the patient denies any recent emergency room visits or hospitalizations. Here with her . Reports ongoing/worsening MS symptoms (diffuse, particularly lower back), days where she is exhausted/weak. At times hurts to turn head or exhausted walking up a flight of stairs. Still attempts to be active most days (on treadmill). Following with chiropractor which helps but does not last, tried PT/dry needling in the past but didn't help. Also, report back/stomach issues-her local GI doc retired. Did see rheumatology in the past, has been years since seen. Strong FMH (SLE, fibromyalgia). On follow up today she denies palpitations, near-syncope, syncope, orthopnea, paroxysmal nocturnal dyspnea, claudication, lower extremity edema. she has been able to take all medications as prescribed, and is closely monitoring sodium intake. 10 point ROS is negative except as noted above. Family/Social medical history reviewed in EMR. Current Outpatient Medications Medication Sig carveDILOL 25 MG tablet Take 2.5 tablets by mouth 2 times daily with meals. Cetirizine 10 MG tablet Take 1 tablet by mouth daily as needed. Wheat Dextrin (BENEFIBER PO) Take 1 Dose by mouth. Powder that pt takes once a day Objective Review of Systems Vitals: Blood pressure 108/67, pulse 73, resp. rate 18, height 1.575 m (5' 2 ), SpO2 97%. Body mass index is 25.02 kg/m . Wt Readings from Last 3 Encounters: 04/22/23 62.1 kg (136 lb 12.8 oz) 10/01/22 69.4 kg (153 lb) 03/19/22 66.1 kg (145 lb 11.6 oz) Physical Exam Constitutional: General: She is not in acute distress. Appearance: She is not diaphoretic. HENT: Head: Normocephalic and atraumatic. Neck: Thyroid: No thyromegaly. Vascular: No JVD. Cardiovascular: Rate and Rhythm: Normal rate and regular rhythm. Chest Wall: PMI is not displaced. Pulses: Normal pulses. Radial pulses are 2+ on the right side and 2+ on the left side. Dorsalis pedis pulses are 2+ on the right side and 2+ on the left side. Posterior tibial pulses are 2+ on the right side and 2+ on the left side. Heart sounds: Normal heart sounds, S1 normal and S2 normal. No murmur heard. No friction rub. No gallop. No S3 or S4 sounds. Pulmonary: Effort: Pulmonary effort is normal. No respiratory distress. Breath sounds: Normal breath sounds. No wheezing or rales. Abdominal: General: Bowel sounds are normal. There is no distension. Palpations: Abdomen is soft. Tenderness: There is no abdominal tenderness. Musculoskeletal: General: Normal range of motion. Skin: General: Skin is warm and dry. Neurological: Mental Status: She is alert and oriented to person, place, and time. Neurological Exam Mental Status Alert. Oriented to person, place, and time. Lab Results Component Value Date SODIUM 140 12/19/2022 POTASSIUM 3.8 12/19/2022 CHLORIDE 105 12/19/2022 CO2 28.4 12/19/2022 BUN 16 12/19/2022 CREATININE 0.71 05/19/2013 GLUCOSE 100 11/19/2022 Lab Results Component Value Date CHOLESTEROL 167 12/19/2022 CHOLESTEROL 217 (H) 09/18/2021 CHOLESTEROL 189 03/21/2019 CHOLESTEROL 160 04/13/2015 CHOLESTEROL 174 10/07/2012 HDL 46 12/19/2022 HDL 51 09/18/2021 HDL 51 03/21/2019 HDL 39 (A) 04/13/2015 HDL 42 10/07/2012 CHOLTOTALHDL 4.3 09/18/2021 CHOLTOTALHDL 3.7 03/21/2019 . Lab Results Component Value Date WBC 7.1 02/20/2022 MCV 84.3 04/02/2016 Lab Results Component Value Date TSH 0.981 09/18/2021 TSH 1.617 04/02/2016 Lab Results Component Value Date ALT 25 04/13/2015 AST 29 04/13/2015 Lab Results Component Value Date HGBA1C 5.1 11/19/2022 Cardiac MRI 10/19/18: 1. Nearly circumferential subendocardial perfusion defect with septal prominence noted with adenosine stress. In the absence of multi-vessel CAD, this perfusion defect likely represents impaired myocardial perfusion reserve. Patient reported chest pain and dyspnea with adenosine stress. 2. Normal left ventricular size, wall thickness, and systolic function; LVEF=67%. 3. No scarring, fibrosis or myocardial infarction on late gadolinium enhancement imaging. 4. Normal right ventricular size and systolic function. 5. Normal biatrial size. 6. No myocardial edema / inflammation on T2 mapping. 7. No cardiac or hepatic iron overload on T2* mapping. 8. Mild tricuspid regurgitation. Peak aortic velocity is 1.5 m/s on phase contrast imaging. 9. Small pericardial effusion. Of note pt received 13 hour allergy preparation prior to receiving contrast. Post contrast at the end of the exam she slowly developed a rash on her chest and back along with mild throat itching. She was immediately given benadryl and solumedrol with gradual improvement. She received instructions on further evaluation of symptoms and need for follow up. CRITICAL RESULT: No STUDY QUALITY: Good IMPRESSION ======= Nearly circumferential subendocardial perfusion defect with septal prominence noted with adenosine stress. Normal biventricular size and systolic function. No fibrosis or infarct scar. Echo 11/15/17: Conclusions 1. The left ventricular chamber size and systolic function is normal. 2. The right ventricular chamber size and systolic function is normal. 3. There is no hemodynamically significant valvular disease. Stress Test 11/15/17: IMPRESSION: 1. Exercise stress myocardial perfusion scan within normal limits. 2. No evidence of ischemia. 3. No evidence of prior myocardial injury. 4. Normal left ventricular systolic function with LVEF equal to 67%. Event Monitor 10/25/21: Sinus rhythm at baseline and during symptoms of lightheadedness, chest pressure, flutter and shortness of breath. No arrhythmias detected. Echo 03/19/22 : Normal LV size and function, EF 59%. Normal RV size and function. No hemodynamically significant valve disease. Assessment and Plan 1. cardiomyopathy w/ recovered EF (ACC stage C/NYHA class II) and Microvascular dx/Syndrome X. Warm, dry. -Continue Coreg 62.5mg twice a day with food -Recent echo above with normal EF, no valvular disease. 2. HLD -much improved with lifestyle changes (weight loss/diet). Great job! Defer statin at this time and will continue to closely monitor. Lab Results Component Value Date CHOLESTEROL 167 12/19/2022 TRIG 66 12/19/2022 HDL 46 12/19/2022 LDLCALC 107.8 12/19/2022 3. Diffuse musculoskeletal symptoms, strong FMH of rheumatologic dx (SLE, RA, fibromyalgia) -has seen rheum year ago, seeing ongoing and worsening diffuse MS symptoms encouraged her to follow up with rheumatology. 4. GI symptoms, followed with GI in the past (MD retired) Due for annual EGD (for gastric mapping biopsies) She will follow-up in the clinic 6 months and is to notify the office for any cardiovascular concerns prior to then. A written summary of today's visit as well as an updated medication list were provided, and the patient verbalizes understanding of today's plan. Please do not hesitate to contact us with any questions. This patient was seen in conjunction with Dr. Sosa. Patient seen with SLOT MACHINE DEPARTMENT FLOORPERSON I saw and personally examined this patient with the nurse practitioner. The patient is generally doing well and is compensated on examination. Her complaints seem referable to the gastrointestinal and skeletal muscle systems. We recommended she follow-up was a blood typer and a dynamotor repairer, the latter especially given the strong family history of rheumatological disorders (RA, lupus). Otherwise, we will continue the current treatment plan, as outlined in the SLOT MACHINE DEPARTMENT FLOORPERSON note. The plan was developed mutually at the time of the clinic visit. The nurse practitioner and I spoke with the patient and provided written and verbal instructions for the patient. The note has been reviewed and I agree with the assessment and plan. Follow up arrangements were made prior to the patient being discharged from the clinic. documented in this encounter [facility] 12-02-2023 Instructions Justyna Heller, LONGWALL HEADGATE OPERATOR-ORDER ENTRY REPRESENTATIVE - 12/02/2023 2:15 PM EDT The following instructions were given today: -follow up with rheumatology and gastroenterology Your after visit summary (AVS) is viewable in [facility] My Chart. Call RN if you have cardiac questions/concerns M-F 8 to 4:30 ; office # [phone], option 6, then option 2. Guidelines for home management: 1. Continue to monitor weight first thing each morning. 2. Report to the CHF CLINIC ([phone]) any significant weight change. Remember that weight change of 2-3 lbs. in 1 day or 5 lbs in a week is significant and likely represents changes in fluid status. 3. If you are taking a diuretic (such as lasix, demadex, bumex), you should also restrict all sodium intake to 2000 milligrams (2 grams) a day. Depending on your status, you may also be asked to restrict fluid intake to no more than 64 oz/2 Liters a day. If uncertain, ask the nurse or physician. 4. Regular aerobic exercise is encouraged 30 minutes a day (walking, bike, swimming, etc.). For specific exercise recommendations, ask your physician. 5. Report to CHF CLINIC any change in symptoms (chest pain, worsening shortness of breath, increased dizziness or passing out, increased palpitations or ICD shock, trouble catching breath while lying down, increased edema or abdominal bloating). Remember that even minor changes in symptoms may be important. Also report any changes in medications including over the counter medications. 6. DO NOT take NSAID's for pain (i.e, Advil, Aleve, Motrin, ibuprofen, and many more) since these may cause serious problems in those with a history of CHF. If uncertain about the medication, call us. 7. * If you have new significant or ongoing diarrhea or vomiting, please hold your diuretic (examples: furosemide/Lasix or torsemide/Demadex) and call our clinic for further instructions. Taking a diuretic (water pill) with these symptoms can worsen dehydration. If you decide to have labs/tests run outside of the [facility] and you do not hear from us 1-2 days after they are performed, you must call us to ensure we received the results. Office fax # [phone]. No news does not necessarily mean that your tests are normal, it could mean we did not get the results. For questions/updates: please provide your name with spelling, date of and question or update All calls are prioritized and responses researched, if possible, prior to calls being returned. Call Scheduling for any appointment/procedure verification or changes [phone], option 7 or [facility] at [phone], option 1. documented in this encounter [facility] 10-29-2023 Miscellaneous Notes CV PHONE Name of caller : Avis Relationship to patient : [facility] If not self Will need patient permission to release results or disclose health information with called documented in . Patient identified by Name and Date of . ( Marianna Ramirez, 1975). Yes Number to return call [phone] Reason for Call: Avis is calling from [facility] to obtain notes and information for prior Auth of MRI WO IVCON. Sent: Thank you calling [facility] [place]. You will receive a return call within 48 hours ( or 2 business days if close to the weekend). If you feel that this is an urgent issue and needs immediate attention, it is recommended that you contact your primary care provider office or proceed to your nearest Urgent Care Center of Emergency Room ED for evaluation/treatment. documented in this encounter [facility] 10-25-2023 Miscellaneous Notes Called patient. She also describes facial pressure that radiates into her jaw and ears, that occurs along with her ear popping. She said it feels like a sinus infection but she has not been blowing her nose. Discussed she should consider discussing symptomatic treatment with her PCP but did verify that Dr. Bolivar previously okayed MRI w/o contrast. Reinforced that it will not show an asymptomatic DVA, but could show changes such as a development of a cavernoma, especially if there was any bleeding. Patient verifies understanding and agrees with plan. Will overnight order. Jatinder Valle RN Returned call to patient. Patient states that she has been having some shoulder and neck pain for a few weeks. She then developed menstrual headaches. In the interim, patient saw chiropractor who adjusted back and adjusted neck. States symptoms have not improved, possibly worse. Denies stroke symptoms. Reviewed headache management. Reviewed stroke signs and symptoms. Patient verbalized understanding. Patient would like to pursue imaging for DVA if possible but aware may be difficult due to Gadolinium allergy. Forwarded to Dr Bolivar's team to review CV PHONE Name of caller : Marianna Relationship to patient : Self If not self Will need patient permission to release results or disclose health information with called documented in fyi. Patient identified by Name and Date of . ( Marianna Trivedibre, 1975). Yes Number to return call [phone] Reason for Call: Symptoms Call: Symptoms: headache , dizzy spells, patient hears a popping nose, experience numbness in lips Duration: >48 hours Progression: worse Pain level: 8 on a scale of 0-10. Type of pain (feels like): pressure and radiating Frequency: constant and intermittent Location of pain: [facility] Patient is calling concern about overlapping symptoms from other conditions and just want to be sure it's not something else going on. Thank you calling [facility]. You will receive a return call within 48 hours ( or 2 business days if close to the weekend). If you feel that this is an urgent issue and needs immediate attention, it is recommended that you contact your primary care provider office or proceed to your nearest Urgent Care Center of Emergency Room ED for evaluation/treatment. documented in this encounter [facility] 05-04-2023 Hospital Discharge instructions Patient Education 05/04/2023 12:23:01 Food Choices for Gastroesophageal Reflux Disease, Adult Food Choices for Gastroesophageal Reflux Disease, Adult When you have gastroesophageal reflux disease (GERD), the foods you eat and your eating habits are very important. Choosing the right foods can help ease the discomfort of GERD. Consider working with a dietitian to help you make healthy food choices. What are tips for following this plan? Reading food labels Look for foods that are low in saturated fat. Foods that have less than 5% of daily value (DV) of fat and 0 g of trans fats may help with your symptoms. Cooking Cook foods using methods other than frying. This may include baking, steaming, grilling, or broiling. These are all methods that do not need a lot of fat for cooking. To add flavor, try to use herbs that are low in spice and acidity. Meal planning Choose healthy foods that are low in fat, such as fruits, vegetables, whole grains, low-fat dairy products, lean meats, fish, and poultry. Eat frequent, small meals instead of three large meals each day. Eat your meals slowly, in a relaxed setting. Avoid bending over or lying down until 2 3 hours after eating. Limit high-fat foods such as fatty meats or fried foods. Limit your intake of fatty foods, such as oils, butter, and shortening. Avoid the following as told by your health care provider: ?Foods that cause symptoms. These may be different for different people. Keep a food diary to keep track of foods that cause symptoms. ?Alcohol. ?Drinking large amounts of liquid with meals. ?Eating meals during the 2 3 hours before bed. Lifestyle Maintain a healthy weight. Ask your health care provider what weight is healthy for you. If you need to lose weight, work with your health care provider to do so safely. Exercise for at least 30 minutes on 5 or more days each week, or as told by your health care provider. Avoid wearing clothes that fit tightly around your waist and chest. Do not use any products that contain nicotine or tobacco. These products include cigarettes, chewing tobacco, and vaping devices, such as e-cigarettes. If you need help quitting, ask your health care provider. Sleep with the head of your bed raised. Use a wedge under the mattress or blocks under the bed frame to raise the head of the bed. Chew sugar-free gum after mealtimes. What foods should I eat? Eat a healthy, well-balanced diet of fruits, vegetables, whole grains, low-fat dairy products, lean meats, fish, and poultry. Each person is different. Foods that may trigger symptoms in one person may not trigger any symptoms in another person. Work with your health care provider to identify foods that are safe for you. The items listed above may not be a complete list of recommended foods and beverages. Contact a dietitian for more information. What foods should I avoid? Limiting some of these foods may help manage the symptoms of GERD. Everyone is different. Consult a dietitian or your health care provider to help you identify the exact foods to avoid, if any. Fruits Any fruits prepared with added fat. Any fruits that cause symptoms. For some people this may include citrus fruits, such as oranges, grapefruit, pineapple, and jeff. Vegetables Deep-fried vegetables. [place] fries. Any vegetables prepared with added fat. Any vegetables that cause symptoms. For some people, this may include tomatoes and tomato products, chili peppers, onions and garlic, and horseradish. Grains Pastries or quick breads with added fat. Meats and other proteins High-fat meats, such as fatty beef or pork, hot dogs, ribs, ham, sausage, salami, and gtz. Fried meat or protein, including fried fish and fried chicken. Nuts and nut butters, in large amounts. Dairy Whole milk and chocolate milk. Sour cream. Cream. Ice cream. Cream cheese. Milkshakes. Fats and oils Butter. Margarine. Shortening. Ghee. Beverages Coffee and tea, with or without caffeine. Carbonated beverages. Sodas. Energy drinks. Fruit juice made with acidic fruits, such as orange or grapefruit. Tomato juice. Alcoholic drinks. Sweets and desserts Chocolate and cocoa. Donuts. Seasonings and condiments Pepper. Peppermint and spearmint. Added salt. Any condiments, herbs, or seasonings that cause symptoms. For some people, this may include saez, hot sauce, or vinegar-based salad dressings. The items listed above may not be a complete list of foods and beverages to avoid. Contact a dietitian for more information. Questions to ask your health care provider Diet and lifestyle changes are usually the first steps that are taken to manage symptoms of GERD. If diet and lifestyle changes do not improve your symptoms, talk with your health care provider about taking medicines. Where to find more information [employer]: aboutgerd.org Summary When you have gastroesophageal reflux disease (GERD), food and lifestyle choices may be very helpful in easing the discomfort of GERD. Eat frequent, small meals instead of three large meals each day. Eat your meals slowly, in a relaxed setting. Avoid bending over or lying down until 2 3 hours after eating. Limit high-fat foods such as fatty meats or fried foods. This information is not intended to replace advice given to you by your health care provider. Make sure you discuss any questions you have with your health care provider. Document Revised: 03/03/2021 Document Reviewed: 03/03/2021 [employer] Patient Education 2022 [employer]. Follow Up Care 01/28/2023 14:16:26 With:Jessica Lopez CNP Address: When:6 months [facility] 04-22-2023 History of Present illness Narrative Patient Education Patient education regarding the following topic(s) was provided on 04/22/2023: plan of care. -Increase Coreg to 1.5 tablets (37.5mg) twice a day with food. -Follow up with Dr. Sosa in 6 months. Those in attendance for the education included: patient and spouse. Barriers in providing the education included: none. The following methods were used in providing the education: explanation. [facility] handouts given included: After visit summary. The response of those in attendance was: states/identifies education topic. The following Clinical Intervention(s) occurred during today s visit: Orthostatic or Coarctation vital signs completed and Extensive teaching provided to patient and or support team regarding plan of care. History of Present Illness We have had the pleasure of seeing your patient, Marianna Ramirez who is a 47 y.o. female who presents to the [facility] for follow-up of HFrEF (post ) w/ recovered EF and microvascular disease. Today, the patient denies any recent emergency room visits or hospitalizations. Has been struggling with worsening palpitations (notes tightness in her throat with these) 3-4 times a week and HR fluctuating/palpitatations (refer to 03/31/23 [employer] message for detailed symptoms). Continues to go to the chiropractor and notes continued back/shoulder pain and pressure (not relieved w/ chiropractor)-feels like crap overall although occasionally will have a good day and able to be more active. Notes HR typically does not go above 100 when bike riding and notes recently in 1teens, felt bad when elevates. Feels resting HR had been in the 60s and now most recently has been trending in the 80s. Still continues to exercise most days. Back at work and difficulty with stairs, takes a minute to recover (SOB, leg heaviness). Does note was dx with basal cell on her back. Following closely with dermatology. 10 point ROS is negative except as noted above. Family/Social medical history reviewed in EMR. Current Outpatient Medications Medication Sig carveDILOL 25 MG tablet TAKE 1 TABLET BY MOUTH 2 TIMES DAILY WITH MEALS. Wheat Dextrin (BENEFIBER PO) Take 1 Dose by mouth. Powder that pt takes once a day atorvastatin (Lipitor) 20 MG tablet Take 1 tablet by mouth daily. (Patient not taking: Reported on 04/22/2023) Diltiazem 120 MG Cap SR 24HR capsule XL Take 1 capsule by mouth daily. (Patient not taking: Reported on 04/22/2023) ZYRTEC 10 MG PO TABS Take 1 tablet by mouth as needed for Allergies. (Patient not taking: Reported on 04/22/2023) Review of Systems Vitals: Blood pressure 115/68, pulse 86, resp. rate 20, height 1.575 m (5' 2 ), weight 62.1 kg (136 lb 12.8 oz), SpO2 98 %. Body mass index is 25.02 kg/m . Wt Readings from Last 3 Encounters: 04/22/23 62.1 kg (136 lb 12.8 oz) 10/01/22 69.4 kg (153 lb) 03/19/22 66.1 kg (145 lb 11.6 oz) Physical Exam Constitutional: General: She is not in acute distress. Appearance: She is not diaphoretic. HENT: Head: Normocephalic and atraumatic. Neck: Thyroid: No thyromegaly. Vascular: No JVD. Cardiovascular: Rate and Rhythm: Normal rate and regular rhythm. Chest Wall: PMI is not displaced. Pulses: Normal pulses. Radial pulses are 2+ on the right side and 2+ on the left side. Dorsalis pedis pulses are 2+ on the right side and 2+ on the left side. Posterior tibial pulses are 2+ on the right side and 2+ on the left side. Heart sounds: Normal heart sounds, S1 normal and S2 normal. No murmur heard. No friction rub. No gallop. No S3 or S4 sounds. Pulmonary: Effort: Pulmonary effort is normal. No respiratory distress. Breath sounds: Normal breath sounds. No wheezing or rales. Abdominal: General: Bowel sounds are normal. There is no distension. Palpations: Abdomen is soft. Tenderness: There is no abdominal tenderness. Musculoskeletal: General: Normal range of motion. Skin: General: Skin is warm and dry. Neurological: Mental Status: She is alert and oriented to person, place, and time. Neurological Exam Mental Status Alert. Oriented to person, place, and time. Cardiac MRI 10/19/18: 1. Nearly circumferential subendocardial perfusion defect with septal prominence noted with adenosine stress. In the absence of multi-vessel CAD, this perfusion defect likely represents impaired myocardial perfusion reserve. Patient reported chest pain and dyspnea with adenosine stress. 2. Normal left ventricular size, wall thickness, and systolic function; LVEF=67%. 3. No scarring, fibrosis or myocardial infarction on late gadolinium enhancement imaging. 4. Normal right ventricular size and systolic function. 5. Normal biatrial size. 6. No myocardial edema / inflammation on T2 mapping. 7. No cardiac or hepatic iron overload on T2* mapping. 8. Mild tricuspid regurgitation. Peak aortic velocity is 1.5 m/s on phase contrast imaging. 9. Small pericardial effusion. Of note pt received 13 hour allergy preparation prior to receiving contrast. Post contrast at the end of the exam she slowly developed a rash on her chest and back along with mild throat itching. She was immediately given benadryl and solumedrol with gradual improvement. She received instructions on further evaluation of symptoms and need for follow up. CRITICAL RESULT: No STUDY QUALITY: Good IMPRESSION ======= Nearly circumferential subendocardial perfusion defect with septal prominence noted with adenosine stress. Normal biventricular size and systolic function. No fibrosis or infarct scar. Echo 11/15/17: Conclusions 1. The left ventricular chamber size and systolic function is normal. 2. The right ventricular chamber size and systolic function is normal. 3. There is no hemodynamically significant valvular disease. Stress Test 11/15/17: IMPRESSION: 1. Exercise stress myocardial perfusion scan within normal limits. 2. No evidence of ischemia. 3. No evidence of prior myocardial injury. 4. Normal left ventricular systolic function with LVEF equal to 67%. Event Monitor 10/25/21: Sinus rhythm at baseline and during symptoms of lightheadedness, chest pressure, flutter and shortness of breath. No arrhythmias detected. Echo 03/19/22 : Normal LV size and function, EF 59%. Normal RV size and function. No hemodynamically significant valve disease. Assessment and Plan 1. cardiomyopathy w/ recovered EF (ACC stage C/NYHA class II) and Microvascular dx/Syndrome X. Warm, dry. -Increase coreg to 1.5 tablets (37.5mg) twice a day with food for symptomatic relief -Recent echo above with normal EF, no valvular disease. 2. HLD -much improved with lifestyle changes (weight loss/diet). Great job! Defer statin at this time and will continue to closely monitor. Lab Results Component Value Date CHOLESTEROL 167 12/19/2022 TRIG 66 12/19/2022 HDL 46 12/19/2022 LDLCALC 107.8 12/19/2022 She will follow-up in the clinic 6 months and is to notify the office for any cardiovascular concerns prior to then. A written summary of today's visit as well as an updated medication list were provided, and the patient verbalizes understanding of today's plan. Please do not hesitate to contact us with any questions. This patient was seen in conjunction with Dr. Sosa. Patient seen with SLOT MACHINE DEPARTMENT FLOORPERSON I saw and personally examined this patient with the nurse practitioner. The patient complains of increased palpitations.Both her resting and exercise heart rates have risen over the past several weeks.She is compensated on examination. We will increase the dose of carvedilol and otherwise continue the current treatment plan, as outlined in the SLOT MACHINE [employer]PARTMENT FLOORPERSON note. The plan was developed mutually at the time of the clinic visit. The nurse practitioner and I spoke with the patient and provided written and verbal instructions for the patient. The note has been reviewed and I agree with the assessment and plan. Follow up arrangements were made prior to the patient being discharged from the clinic. documented in this encounter [facility] 04-22-2023 Instructions Cecilia Spencer RN - 04/22/2023 3:45 PM EDT The following instructions were given today: -Increase Coreg to 1.5 tablets (37.5mg) twice a day with food. -Follow up with Dr. Sosa in 6 months. Your after visit summary (AVS) is viewable in [facility] My Chart. Call RN if you have cardiac questions/concerns M-F 8 to 4:30 ; office # [phone], option 6, then option 2. Guidelines for home management: 1. Continue to monitor weight first thing each morning. 2. Report to the CHF CLINIC ([phone]) any significant weight change. Remember that weight change of 2-3 lbs. in 1 day or 5 lbs in a week is significant and likely represents changes in fluid status. 3. If you are taking a diuretic (such as lasix, demadex, bumex), you should also restrict all sodium intake to 2000 milligrams (2 grams) a day. Depending on your status, you may also be asked to restrict fluid intake to no more than 64 oz/2 Liters a day. If uncertain, ask the nurse or physician. 4. Regular aerobic exercise is encouraged 30 minutes a day (walking, bike, swimming, etc.). For specific exercise recommendations, ask your physician. 5. Report to CHF CLINIC any change in symptoms (chest pain, worsening shortness of breath, increased dizziness or passing out, increased palpitations or ICD shock, trouble catching breath while lying down, increased edema or abdominal bloating). Remember that even minor changes in symptoms may be important. Also report any changes in medications including over the counter medications. 6. DO NOT take NSAID's for pain (i.e, Advil, Aleve, Motrin, ibuprofen, and many more) since these may cause serious problems in those with a history of CHF. If uncertain about the medication, call us. 7. * If you have new significant or ongoing diarrhea or vomiting, please hold your diuretic (examples: furosemide/Lasix or torsemide/Demadex) and call our clinic for further instructions. Taking a diuretic (water pill) with these symptoms can worsen dehydration. If you decide to have labs/tests run outside of the [facility] and you do not hear from us 1-2 days after they are performed, you must call us to ensure we received the results. Office fax # [phone]. No news does not necessarily mean that your tests are normal, it could mean we did not get the results. For questions/updates: please provide your name with spelling, date of and question or update All calls are prioritized and responses researched, if possible, prior to calls being returned. Call Scheduling for any appointment/procedure verification or changes [phone], option 7 or [facility] Heart Schedulers at [phone], option 1. documented in this encounter [facility] 04-14-2023 Miscellaneous Notes Called patient. She states that she has had several MRIs with reactions. The first they noted a possible allergy and the second she was treated with 24 hour premedication and after the MRI had coughing, throat closing, and trouble breathing. They have recommended for her to never have another MRI. Discussed this RN spoke with Dr. Bolivar yesterday and he confirmed that a MRI w/o is unlikely to show an asymptomatic DVA. Therefore he recommends following the patient symptomatically. Patient agrees and states that she had not had any many symptom changes. Two weeks ago she did have a brief period of bilateral blurry vision and self resolved, and it has not reoccurred. She will follow up with her PCP for that and call us with any questions or future change in symptoms. Patient agrees. Jatinder Valle RN CV PHONE Name of caller : Marinana Relationship to patient : Self If not self Will need patient permission to release results or disclose health information with called documented in fyi. Patient identified by Name and Date of . ( Marianna Ramirez, 1975). Yes Number to return call [phone] Reason for Call: Patient Question/Update: Marianna is calling to say she developed an allergy to contrast and cannot have MRI W/WO. Also she would like to know if she can have it done locally. Please call. Thank you calling [facility]. You will receive a return call within 48 hours ( or 2 business days if close to the weekend). If you feel that this is an urgent issue and needs immediate attention, it is recommended that you contact your primary care provider office or proceed to your nearest Urgent Care Center of Emergency Room ED for evaluation/treatment. documented in this encounter [facility] 01-13-2023 Hospital Discharge instructions Patient Education 01/13/2023 10:19:37 Dysphagia Dysphagia Dysphagia is trouble swallowing. This condition occurs when solids and liquids stick in a person's throat on the way down to the stomach, or when food takes longer to get to the stomach than usual. You may have problems swallowing food, liquids, or both. You may also have pain while trying to swallow. It may take you more time and effort to swallow something. What are the causes? This condition may be caused by: Muscle problems. These may make it difficult for you to move food and liquids through the esophagus, which is the tube that connects your mouth to your stomach. Blockages. You may have ulcers, scar tissue, or inflammation that blocks the normal passage of food and liquids. Causes of these problems include: ?Acid reflux from your stomach into your esophagus (gastroesophageal reflux). ?Infections. ?Radiation treatment for cancer. ?Medicines taken without enough fluids to wash them down into your stomach. Stroke. This can affect the nerves and make it difficult to swallow. Nerve problems. These prevent signals from being sent to the muscles of your esophagus to squeeze (contract) and move what you swallow down to your stomach. Globus pharyngeus. This is a common problem that involves a feeling like something is stuck in your throat or a sense of trouble with swallowing, even though nothing is wrong with the swallowing passages. Certain conditions, such as cerebral palsy or Parkinson's disease. What are the signs or symptoms? Common symptoms of this condition include: A feeling that solids or liquids are stuck in your throat on the way down to the stomach. Pain while swallowing. Coughing or gagging while trying to swallow. Other symptoms include: Food moving back from your stomach to your mouth (regurgitation). Noises coming from your throat. Chest discomfort when swallowing. A feeling of fullness when swallowing. Drooling, especially when the throat is blocked. Heartburn. How is this diagnosed? This condition may be diagnosed by: Barium swallow X-ray. In this test, you will swallow a white liquid that sticks to the inside of your esophagus. X-ray images are then taken. Endoscopy. In this test, a flexible telescope is inserted down your throat to look at your esophagus and your stomach. CT scans or an MRI. How is this treated? Treatment for dysphagia depends on the cause of this condition: If the dysphagia is caused by acid reflux or infection, medicines may be used. These may include antibiotics or heartburn medicines. If the dysphagia is caused by problems with the muscles, swallowing therapy may be used to help you strengthen your swallowing muscles. You may have to do specific exercises to strengthen the muscles or stretch them. If the dysphagia is caused by a blockage or mass, procedures to remove the blockage may be done. You may need surgery and a feeding tube. You may need to make diet changes. Ask your health care provider for specific instructions. Follow these instructions at home: Medicines Take [id number] and prescription medicines only as told by your health care provider. If you were prescribed an antibiotic medicine, take it as told by your health care provider. Do not stop taking the antibiotic even if you start to feel better. Eating and drinking Make any diet changes as told by your health care provider. Work with a diet and technical operations specialist (dietitian) to create an eating plan that will help you get the nutrients you need in order to stay healthy. Eat soft foods that are easier to swallow. Cut your food into small pieces and eat slowly. Take small bites. Eat and drink only when you are sitting upright. Do not drink alcohol or caffeine. If you need help quitting, ask your health care provider. General instructions Check your weight every day to make sure you are not losing weight. Do not use any products that contain nicotine or tobacco. These products include cigarettes, chewing tobacco, and vaping devices, such as e-cigarettes. If you need help quitting, ask your health care provider. Keep all follow-up visits. This is important. Contact a health care provider if: You lose weight because you cannot swallow. You cough when you drink liquids. You cough up partially digested food. Get help right away if: You cannot swallow your saliva. You have shortness of breath, a fever, or both. Your voice is hoarse and you have trouble swallowing. These symptoms may represent a serious problem that is an emergency. Do not wait to see if the symptoms will go away. Get medical help right away. Call your local emergency services (911 in the [place] Do not drive yourself to the hospital. Summary Dysphagia is trouble swallowing. This condition occurs when solids and liquids stick in a person's throat on the way down to the stomach. You may cough or gag while trying to swallow. Dysphagia has many possible causes. Treatment for dysphagia depends on the cause of the condition. Keep all follow-up visits. This is important. This information is not intended to replace advice given to you by your health care provider. Make sure you discuss any questions you have with your health care provider. Document Revised: 04/12/2021 Document Reviewed: 04/12/2021 [employer] Patient Education 2022 Supersolid. Follow Up Care 01/07/2023 14:24:39 With:Jessica Lopez CNP Address: When:3 months [facility] 12-30-2022 Note [id number]:127 [facility] 12-28-2022 Evaluation + Plan note Extrac vladimir from: Title:CSKary post op Author:Frank Tovar MD. Date:12/28/22 Plan Transfer/Discharge: Transfer/Discharge Discharge when meets criteria ( To home ). Extracted from: Title:JAYME GA Author:Frank Tovar MD. Date:12/28/22 Plan [employer] [employer]hesi[employer] (ASA) physical status classification: Class II. Anesthetic Preoperative Plan: Anesthesia General. [facility]04-24-2023 Hospital Discharge instructions Patient Education 12/28/2022 10:55:03 Esophageal Dilatation Esophageal Dilatation Esophageal dilatation, also called esophageal dilation, is a procedure to widen or open a blocked or narrowed part of the esophagus. The esophagus is the part of the body that moves food and liquid from the mouth to the stomach. You may need this procedure if: You have a buildup of scar tissue in your esophagus that makes it difficult, painful, or impossibleto swallow. This can be caused by gastroesophageal reflux disease (GERD). You have cancer of the esophagus. There is a problem with how food moves through your esophagus. In some cases, you may need this procedure repeated at a later time to dilate the esophagus gradually. Tell a health care provider about: Any allergies you have. All medicines you are taking, including vitamins, herbs, eye drops, creams, and fqjy-yoo-imhnjvt medicines. Any problems you or family members have had with anesthetic medicines. Any blood disorders you have. Any surgeries you have had. Any medical conditions you have. Any antibiotic medicines you are required to take before dental procedures. Whether you are or may be . What are the risks? Generally, this is a safe procedure. However, problems may occur, including: Bleeding due to a tear in the lining of the esophagus. A hole, or perforation, in the esophagus. What happens before the procedure? Ask your health care provider about: ?Changing or stopping your regular medicines. This is especially important if you are taking diabetes medicines or blood thinners. ?Taking medicines such as aspirin and ibuprofen. These medicines can thin your blood. Do not take these medicines unless your health care provider tells you to take them. ?Taking wgmo-cak-opdegtr medicines, vitamins, herbs, and supplements. Follow instructions from your health care provider about eating or drinking restrictions. Plan to have a responsible adult take you home from the hospital or clinic. Plan to have a responsible adult care for you for the time you are told after you leave the hospital or clinic. This is important. What happens during the procedure? You may be given a medicine to help you relax (sedative). A numbing medicine may be sprayed into the back of your throat, or you may gargle the medicine. Your health care provider may perform the dilatation using various surgical instruments, such as: ?Simple dilators. This instrument is carefully placed in the esophagus to stretch it. ?Guided wire bougies. This involves using an endoscope to insert a wire into the esophagus. A dilator is passed over this wire to enlarge the esophagus. Then the wire is removed. ?Balloon dilators. An endoscope with a small balloon is inserted into the esophagus. The balloon isinflated to stretch the esophagus and open it up. The procedure may vary among health care providers and hospitals. What can I expect after the procedure? Your blood pressure, heart rate, breathing rate, and blood oxygen level will be monitored until youleave the hospital or clinic. Your throat may feel slightly sore and numb. This will get better over time. You will not be allowed to eat or drink until your throat is no longer numb. When you are able to drink, urinate, and sit on the edge of the bed without nausea or dizziness, you may be able to return home. Follow these instructions at home: Take dhrx-ihi-lotixwd and prescription medicines only as told by your health care provider. If you were given a sedative during the procedure, it can affect you for several hours. Do not drive or operate machinery until your health care provider says that it is safe. Plan to have a responsible adult care for you for the time you are told. This is important. Follow instructions from your health care provider about any eating or drinking restrictions. Do not use any products that contain nicotine or tobacco, such as cigarettes, e- cigarettes, and chewing tobacco. If you need help quitting, ask your health care provider. Keep all follow-up visits. This is important. Contact a health care provider if: You have a fever. You have pain that is not relieved by medicine. Get help right away if: You have chest pain. You have trouble breathing. You have trouble swallowing. You vomit blood. You have black, tarry, or bloody stools. These symptoms may represent a serious problem that is an emergency. Do not wait to see if the symptoms will go away. Get medical help right away. Call your local emergency services (911 in the [place] Do not drive yourself to the hospital. Summary Esophageal dilatation, also called esophageal dilation, is a procedure to widen or open a blocked or narrowed part of the esophagus. Plan to have a responsible adult take you home from the hospital or clinic. For this procedure, a numbing medicine may be sprayed into the back of your throat, or you may gargle the medicine. Do not drive or operate machinery until your health care provider says that it is safe. This information is not intended to replace advice given to you by your health care provider. Make sure you discuss any questions you have with your health care provider. Document Revised: 01/08/2021 Document Reviewed: 01/08/2021 [employer] Patient Education 2022 Supersolid. 12/28/2022 10:55:03 Endoscopy, Care After Procedure [facility] Endoscopy Care After Procedure Please read the instructions outlined below and refer to this sheet in the next few weeks. These discharge instructions provide you with general information on caring [facility] Your doctor may also give you specific instructions. While your treatment has been planned according to the most current medical practices available, unavoidable complications occasionally occur. If you have any problems or questions after discharge, please call your doctor. ACTIVITY You may resume your regular activity but move at a slower pace for the next 24 hours. Take frequent rest periods for the next 24 hours. Walking will help expel (get rid of) the air and reduce the bloated feeling in your abdomen. No driving for 24 hours (because of the anesthesia (medicine) used during the test). You may shower. Do not sign any important legal documents or operate any machinery for 24 hours (because of the anesthesia used during the test). NUTRITION Drink plenty of fluids. You may resume your normal diet. Begin with a light meal and progress to your normal diet. Avoid alcoholic beverages for 24 hours or as instructed by your caregiver. MEDICATIONS You may resume your normal medications unless your caregiver tells you otherwise. WHAT YOU CAN EXPECT TODAY You may experience abdominal discomfort such as a feeling of fullness or gas pains. FOLLOW-UP Your doctor will discuss the results of your test with you. SEEK IMMEDIATE MEDICAL ATTENTION IF ANY OF THE FOLLOWING OCCUR: Excessive nausea (feeling sick to your stomach) and/or vomiting. Severe abdominal pain and distention (swelling). Trouble swallowing. Temperature over 100 F (37.8 C). Rectal bleeding or vomiting of blood. Document Released: 04/06/2005 Document Re-Released: 02/14/2007 ExitCare Patient Information 2009 [employer]. Follow Up Care 12/21/2022 13:31:10 With:Petty AMBROSE Address: [facility] [address] [place] [address] [facility] ([address] When:1 to 2 weeks Comments:Call for any problems. [facility]04-17-2023 Hospital Discharge instructions Patient Education 12/21/2022 12:29:14 High-Fiber Diet High-Fiber Diet Fiber, also called dietary fiber, is a type of carbohydrate that is found in fruits, vegetables, whole grains, and beans. A high-fiber diet can have many health benefits. Your health care provider may recommend a high-fiber diet to help: Prevent constipation. Fiber can make your bowel movements more regular. Lower your cholesterol. Relieve the following conditions: ?Swelling of veins in the anus (hemorrhoids). ?Swelling and irritation (inflammation) of specific areas of the digestive tract (uncomplicated diverticulosis). ?A problem of the large intestine (colon) that sometimes causes pain and diarrhea (irritable bowel syndrome, IBS). Prevent overeating as part of a weight-loss plan. Prevent heart disease, type 2 diabetes, and certain cancers. What is my plan? The recommended daily fiber intake in grams (g) includes: 38 g for men age 50 or younger. 30 g for men over age 50. 25 g for women age 50 or younger. 21 g for women over age 50. You can get the recommended daily intake of dietary fiber by: Eating a variety of fruits, vegetables, grains, and beans. Taking a fiber supplement, if it is not possible to get enough fiber through your diet. What do I need to know about a high-fiber diet? It is better to get fiber through food sources rather than from fiber supplements. There is not a lot of research about how effective supplements are. Always check the fiber content on the nutrition facts label of any prepackaged food. Look for foodsthat contain 5 g of fiber or more per serving. Talk with a diet and technical operations specialist (dietitian) if you have questions about specific foods that are recommended or not recommended for your medical condition, especially if those foods are not listed below. Gradually increase how much fiber you consume. If you increase your intake of dietary fiber too quickly, you may have bloating, cramping, or gas. Drink plenty of water. Water helps you to digest fiber. What are tips for following this plan? Eat a wide variety of high-fiber foods. Make sure that half of the grains that you eat each day are whole grains. Eat breads and cereals that are made with whole-grain flour instead of refined flour or white flour. Eat brown rice, bulgur wheat, or millet instead of white rice. Start the day with a breakfast that is high in fiber, such as a cereal that contains 5 g of fiber or more per serving. Use beans in place of meat in soups, salads, and pasta dishes. Eat high-fiber snacks, such as berries, raw vegetables, nuts, and popcorn. Choose whole fruits and vegetables instead of processed forms like juice or sauce. What foods can I eat? Fruits Berries. Pears. Apples. Oranges. Avocado. Prunes and raisins. Dried figs. Vegetables Sweet potatoes. Spinach. Kale. Artichokes. Cabbage. Broccoli. Cauliflower. Green peas. Carrots. Squash. Grains Whole-grain breads. Multigrain cereal. Oats and oatmeal. Brown rice. Barley. Bulgur wheat. Millet. Quinoa. Bran muffins. Popcorn. [place] wafer crackers. Meats and other proteins Chamita, kidney, and aparicio beans. Soybeans. Split peas. Lentils. Nuts and seeds. Dairy Fiber-fortified yogurt. Beverages Fiber-fortified soy milk. Fiber-fortified orange juice. Other foods Fiber bars. The items listed above may not be a complete list of recommended foods and beverages. Contact a dietitian for more options. What foods are not recommended? Fruits Fruit juice. Cooked, strained fruit. Vegetables Fried potatoes. Canned vegetables. Well-cooked vegetables. Grains White bread. Pasta made with refined flour. White rice. Meats and other proteins Fatty cuts of meat. Fried chicken or fried fish. Dairy Milk. Yogurt. Cream cheese. Sour cream. Fats and oils Donora. Beverages Soft drinks. Other foods Cakes and pastries. The items listed above may not be a complete list of foods and beverages to avoid. Contact a dietitian for more information. Summary Fiber is a type of carbohydrate. It is found in fruits, vegetables, whole grains, and beans. There are many health benefits of eating a high-fiber diet, such as preventing constipation, lowering blood cholesterol, helping with weight loss, and reducing your risk of heart disease, diabetes, and certain cancers. Gradually increase your intake of fiber. Increasing too fast can result in cramping, bloating, and gas. Drink plenty of water while you increase your fiber. The best sources of fiber include whole fruits and vegetables, whole grains, nuts, seeds, and beans. This information is not intended to replace advice given to you by your health care provider. Make sure you discuss any questions you have with your health care provider. Document Released: 08/23/2006 Document Revised: 06/27/2018 Document Reviewed: 06/27/2018 [employer] Patient Education 2020 Supersolid. Follow Up Care 12/17/2022 13:25:02 With:Jessica Lopez CNP Address: When:1 month [facility] [phone] Telephone encounter Note* Telephone Encounter - REINA Erickson - 11/12/2022 8:39 AM EST Send Yellow[employer]du[employer] message to Marianna for update, K a little low at 3.5. [facility]03-09-2023 Miscellaneous Notes* Telephone Encounter - REINA Erickson - 11/12/2022 8:39 AM EST Send [employer] message to Marianna for update, K a little low at 3.5. * Telephone Encounter - Kia Colin RN - 11/06/2022 3:12 PM EST 11/05/22 faxed lab results from [facility] entered and copy sent to [facility]. Fwd to Dr Sosa and EMANI. documented in this encounterC[facility] Telephone encounter Note* Telephone Encounter - Kia Colin RN - 11/06/2022 3:12 PM EST 11/05/22 faxed lab results from [facility] entered and copy sent to [facility]. Fwd to Dr Sosa and EMANI. [facility]01-26-2023 History of Present illness Narrative* ERINA Erickson - 10/01/2022 2:45 PM EST History of Present Illness We have had the pleasure of seeing your patient, Marianna Ramirez who is a 47 y.o. female who presents to the [facility] for follow-up of HFrEF (post ) w/ recovered EF and microvascular disease. Has good and bad days. Dyspnea is always worse when climbing stairs. Reports pressure tightening, worse at night when laying down, also feels like reflux. Has noted some episodes of dizziness/facial flushing/SOB. Occur unrelated to activity (one while driving, another while on treadmill), last several seconds and something does not feels right . Feels tired, and body feels exhuasted. Does go to the chiropractor who does realignment (something may be out of thoracic at time causing pressure in the heart) but symptoms do not improve after this. Attempting to stay active although reports has had to scale back a little bit. Really enjoyed going to [place] a trip in a RV. On follow up today she denies near-syncope, syncope, orthopnea, paroxysmal nocturnal dyspnea, claudication, lower extremity edema. she has been able to take all medications as prescribed. 10 point ROS is negative except as noted above. Family/Social medical history reviewed in EMR. Current Outpatient Medications Medication Sig carveDILOL 25 MG tablet TAKE ONE TABLET BY MOUTH TWICE A DAY (WITH MEALS) Lisinopril 5 MG tablet TAKE ONE TABLET BY MOUTH DAILY Wheat Dextrin (BENEFIBER PO) Take 1 Dose by mouth. Powder that pt takes once a day ZYRTEC 10 MG PO TABS Take 1 tablet by mouth as needed for Allergies. atorvastatin (Lipitor) 20 MG tablet Take 1 tablet by mouth daily. Review of Systems Vitals: Blood pressure 102/66, pulse 94, resp. rate 16, height 1.575 m (5' 2 ), weight 69.4 kg (153lb), SpO2 97 %. BP 102/66 (BP Location: Left arm, BP Position: Standing) Pulse 94 Resp 16 Ht 1.575 m (5' 2 ) Wt 69.4 kg (153 lb) SpO2 97% BMI 27.98 kg/m Smoking Status Never Body mass index is 27.98 kg/m . Wt Readings from Last 3 Encounters: 10/01/22 69.4 kg (153 lb) 03/19/22 66.1 kg (145 lb 11.6 oz) 03/19/22 67.6 kg (149 lb) Physical Exam Constitutional: General: She is not in acute distress. Appearance: She is not diaphoretic. HENT: Head: Normocephalic and atraumatic. Neck: Thyroid: No thyromegaly. Vascular: No JVD. Cardiovascular: Rate and Rhythm: Normal rate and regular rhythm. Chest Wall: PMI is not displaced. Pulses: Normal pulses. Radial pulses are 2+ on the right side and 2+ on the left side. Dorsalis pedis pulses are 2+ on the right side and 2+ on the left side. Posterior tibial pulses are 2+ on the right side and 2+ on the left side. Heart sounds: Normal heart sounds, S1 normal and S2 normal. No murmur heard. No friction rub. No gallop. No S3 or S4 sounds. Pulmonary: Effort: Pulmonary effort is normal. No respiratory distress. Breath sounds: Normal breath sounds. No wheezing or rales. Abdominal: General: Bowel sounds are normal. There is no distension. Palpations: Abdomen is soft. Tenderness: There is no abdominal tenderness. Musculoskeletal: General: Normal range of motion. Skin: General: Skin is warm and dry. Neurological: Mental Status: She is alert and oriented to person, place, and time. Neurological Exam Mental Status Alert. Oriented to person, place, and time. Lab Results Component Value Date SODIUM 136 02/20/2022 POTASSIUM 4.4 02/20/2022 CHLORIDE 102 02/20/2022 CO2 29.2 02/20/2022 BUN 12 02/20/2022 CREATININE 0.71 05/19/2013 Lab Results Component Value Date CHOLESTEROL 217 (H) 09/18/2021 CHOLESTEROL 189 03/21/2019 CHOLESTEROL 160 04/13/2015 CHOLESTEROL 174 10/07/2012 CHOLESTEROL 175 02/27/2011 HDL 51 09/18/2021 HDL 51 03/21/2019 HDL 39 (A) 04/13/2015 HDL 42 10/07/2012 HDL 38 02/27/2011 CHOLTOTALHDL 4.3 09/18/2021 CHOLTOTALHDL 3.7 03/21/2019 . Lab Results Component Value Date WBC 7.1 02/20/2022 MCV 84.3 04/02/2016 Lab Results Component Value Date TSH 0.981 09/18/2021 TSH 1.617 04/02/2016 Lab Results Component Value Date ALT 25 04/13/2015 AST 29 04/13/2015 Lab Results Component Value Date HGBA1C 5.2 09/18/2021 HGBA1C 5.3 03/21/2019 HGBA1C 4.8 04/13/2015 Cardiac MRI 10/19/18: 1. Nearly circumferential subendocardial perfusion defect with septal prominence noted with adenosine stress. In the absence of multi-vessel CAD, this perfusion defect likely represents impaired myocardial perfusion reserve. Patient reported chest pain and dyspnea with adenosine stress. 2. Normal left ventricular size, wall thickness, and systolic function; LVEF=67%. 3. No scarring, fibrosis or myocardial infarction on late gadolinium enhancement imaging. 4. Normal right ventricular size and systolic function. 5. Normal biatrial size. 6. No myocardial edema / inflammation on T2 mapping. 7. No cardiac or hepatic iron overload on T2* mapping. 8. Mild tricuspid regurgitation. Peak aortic velocity is 1.5 m/s on phase contrast imaging. 9. Small pericardial effusion. Of note pt received 13 hour allergy preparation prior to receiving contrast. Post contrast at the end of the exam she slowly developed a rash on her chest and back along with mild throat itching. She was immediately given benadryl and solumedrol with gradual improvement. She received instructions on further evaluation of symptoms and need for follow up. CRITICAL RESULT: No STUDY QUALITY: Good IMPRESSION Nearly circumferential subendocardial perfusion defect with septal prominence noted with adenosine stress. Normal biventricular size and systolic function. No fibrosis or infarct scar. Echo 11/15/17: Conclusions 1. The left ventricular chamber size and systolic function is normal. 2. The right ventricular chamber size and systolic function is normal. 3. There is no hemodynamically significant valvular disease. Stress Test 11/15/17: IMPRESSION: 1. Exercise stress myocardial perfusion scan within normal limits. 2. No evidence of ischemia. 3. No evidence of prior myocardial injury. 4. Normal left ventricular systolic function with LVEF equal to 67%. Event Monitor 10/25/21: Sinus rhythm at baseline and during symptoms of lightheadedness, chest pressure, flutter and shortness of breath. No arrhythmias detected. Echo 03/19/22 : Normal LV size and function, EF 59%. Normal RV size and function. No hemodynamically significant valve disease. Assessment and Plan 1. cardiomyopathy w/ recovered EF (ACC stage C/NYHA class II) and Microvascular dx/Syndrome X. Warm, dry. -Recent echo above with normal EF, no valvular disease. -Continue Coreg 25mg BID. -Stop lisinopril -Start diltiazem 120mg XL to help w/ symptoms/microvascular dx management 2. HLD -education on lifestyle changes for reducing lipids, repeat fasting at follow up. She will follow-up in the clinic 6 months and is to notify the office for any cardiovascular concerns prior to then. A written summary of today's visit as well as an updated medication list were provided, and the patient verbalizes understanding of today's plan. Please do not hesitate to contact us with any questions. This patient was seen in conjunction with Dr. Sosa. documented in this encounterC[facility] Instructions* Patient Instructions* Janine Fu RN - 10/01/2022 2:45 PM EST Recommendations from Dr Sosa today: -Stop lisinopril -Start diltiazem to see if helps with current symptoms. -Send me an update in a few weeks to let us know how you are doing with this change. -Print out for reducing cholesterol -6 months follow up After visit summary (AVS) is viewable in [facility] My Chart. Send My Chart message for non-urgent inquiry or Call RN if you have cardiac questions/concerns M-F 8 to 4:30 ; office # [phone], option 6, then option 2. Guidelines for home management: 1. Continue to monitor weight first thing each morning. 2. Report to the CHF CLINIC ([phone]) any significant weight change. Remember that weight change of 2-3 lbs. in 1 day or 5 lbs in a week is significant and likely represents changes in fluid status. 3. If you are taking a diuretic (such as lasix, demadex, bumex), you should also restrict all sodium intake to 2000 milligrams (2 grams) a day. Depending on your status, you may also be asked to restrict fluid intake to no more than 64 oz/2 Liters a day. If uncertain, ask the nurse or physician. 4. Regular aerobic exercise is encouraged 30 minutes a day (walking, bike, swimming, etc.). For specific exercise recommendations, ask your physician. 5. Report to CHF CLINIC any change in symptoms (chest pain, worsening shortness of breath, increased dizziness or passing out, increased palpitations or ICD shock, trouble catching breath while lyingdown, increased edema or abdominal bloating). Remember that even minor changes in symptoms may beimportant. Also report any changes in medications including over the counter medications. 6. DO NOT take NSAID's for pain (i.e, Advil, Aleve, Motrin, ibuprofen, and many more) since these may cause serious problems in those with a history of CHF. If uncertain about the medication, call us. 7. * If you have new significant or ongoing diarrhea or vomiting, please hold your diuretic (examples: furosemide/Lasix or torsemide/Demadex) and call our clinic for further instructions. Taking a diuretic (water pill) with these symptoms can worsen dehydration. If you decide to have labs/tests run outside of the [facility] and you do not hear from us1-2 days after they are performed, you must call us to ensure we received the results. Office fax #[phone]. No news does not necessarily mean that your tests are normal, it could mean we did not get the results. For questions/updates: please provide your name with spelling, date of and question or update All calls are prioritized and responses researched, if possible, prior to calls being returned. Call Scheduling for any appointment/procedure verification or changes [phone], option 7 or [facility] at [phone], option 1. documented [facility] encounter[facility] * Encounter Date Diagnosis Assessment Notes Treatment Notes Treatment Clinical Notes Mar, Urinary frequency (ICD-10 - R35.0) Based on dipstick findings, will send urine for culture prior to treatment. Advised that we will call with results in 2-5 days. At time of results, treatment plan may change. Encouraged patient to push fluids. Follow up with PCP if no improvement of symptoms. Immediate evaluation in ER for signs/symptoms as discussed. Patient verbalizes understanding and is agreeable with treatment plan [employer] Other [phone] Instructions* Patient Instructions* Janine Fu RN - 03/19/2022 4:09 PM EDT Recommendations from Dr Sosa today: -Agree with checking the blood sugar during episodes -Continue current medications. -6 months follow up with Dr. Sosa After visit summary (AVS) is viewable in [facility]. Send My Chart message for non-urgent inquiry or Call RN if you have cardiac questions/concerns M-F 8 to 4:30 ; office # [phone], option 6, then option 2. Guidelines for home management: 1. Continue to monitor weight first thing each morning. 2. Report to the CHF CLINIC ([phone]) any significant weight change. Remember that weight change of 2-3 lbs. in 1 day or 5 lbs in a week is significant and likely represents changes in fluid status. 3. If you are taking a diuretic (such as lasix, demadex, bumex), you should also restrict all sodium intake to 2000 milligrams (2 grams) a day. Depending on your status, you may also be asked to restrict fluid intake to no more than 64 oz/2 Liters a day. If uncertain, ask the nurse or physician. 4. Regular aerobic exercise is encouraged 30 minutes a day (walking, bike, swimming, etc.). For specific exercise recommendations, ask your physician. 5. Report to CHF CLINIC any change in symptoms (chest pain, worsening shortness of breath, increased dizziness or passing out, increased palpitations or ICD shock, trouble catching breath while lyingdown, increased edema or abdominal bloating). Remember that even minor changes in symptoms may beimportant. Also report any changes in medications including over the counter medications. 6. DO NOT take NSAID's for pain (i.e, Advil, Aleve, Motrin, ibuprofen, and many more) since these may cause serious problems in those with a history of CHF. If uncertain about the medication, call us. 7. * If you have new significant or ongoing diarrhea or vomiting, please hold your diuretic (examples: furosemide/Lasix or torsemide/Demadex) and call our clinic for further instructions. Taking a diuretic (water pill) with these symptoms can worsen dehydration. If you decide to have labs/tests run outside of the [facility] and you do not hear from us1-2 days after they are performed, you must call us to ensure we received the results. Office fax #[phone]. No news does not necessarily mean that your tests are normal, it could mean we did not get the results. For questions/updates: please provide your name with spelling, date of and question or update All calls are prioritized and responses researched, if possible, prior to calls being returned. Call Scheduling for any appointment/procedure verification or changes [phone], option 7 or [facility] at [phone], option 1. [facility] History of Present illness Narrative* Justyna Heller, LONGWALL HEADGATE OPERATOR-ORDER ENTRY REPRESENTATIVE - 03/19/2022 3:15 PM EDT History of Present Illness We have had the pleasure of seeing your patient, Marianna Ramirez who is a 46 y.o. female who presents to the [facility] for follow-up of HFrEF (post ) w/ recovered EF and microvascular disease. Has good and bad days. Dyspnea is always worse when climbing stairs. BP/HR/pulse ox has been OK during SOB episodes. Has not check BS and report FMH of DM. Attempting to stay active although reports has had to scale back a little bit. Going [place] a trip in a RV. Stillhas occasional episodes of arm/back pain. Can happen w/ and w/o exertion. Reports chiropractor doesnot help as much as it used to. On follow up today she denies palpitations, near-syncope, syncope, orthopnea, paroxysmal nocturnal dyspnea, claudication, lower extremity edema. she has been able to take all medications as prescribed. 10 point ROS is negative except as noted above. 10 point ROS is negative except as noted above. Family/Social medical history reviewed in EMR. Current Outpatient Medications Medication Sig carveDILOL 25 MG tablet Take 1 tablet by mouth 2 times daily with meals. lisinopril 5 MG tablet Take 1 tablet by mouth daily. Wheat Dextrin (BENEFIBER PO) Take 1 Dose by mouth. Powder that pt takes once a day ZYRTEC 10 MG PO TABS Take 1 tablet by mouth as needed for Allergies. atorvastatin (Lipitor) 20 MG tablet Take 1 tablet by mouth daily. Review of Systems Vitals: Blood pressure 120/69, pulse 76, resp. rate 16, height 1.575 m (5' 2 ), weight 67.6 kg (149lb), SpO2 97 %. Body mass index is 27.25 kg/m . Wt Readings from Last 3 Encounters: 03/19/22 67.6 kg (149 lb) 03/19/22 66.1 kg (145 lb 11.6 oz) 09/18/21 66.1 kg (145 lb 12.8 oz) Physical Exam Constitutional: General: She is not in acute distress. Appearance: She is not diaphoretic. HENT: Head: Normocephalic and atraumatic. Neck: Thyroid: No thyromegaly. Vascular: No JVD. Cardiovascular: Rate and Rhythm: Normal rate and regular rhythm. Chest Wall: PMI is not displaced. Pulses: Normal pulses. Radial pulses are 2+ on the right side and 2+ on the left side. Dorsalis pedis pulses are 2+ on the right side and 2+ on the left side. Posterior tibial pulses are 2+ on the right side and 2+ on the left side. Heart sounds: Normal heart sounds, S1 normal and S2 normal. No murmur heard. No friction rub. No gallop. No S3 or S4 sounds. Pulmonary: Effort: Pulmonary effort is normal. No respiratory distress. Breath sounds: Normal breath sounds. No wheezing or rales. Abdominal: General: Bowel sounds are normal. There is no distension. Palpations: Abdomen is soft. Tenderness: There is no abdominal tenderness. Musculoskeletal: General: Normal range of motion. Skin: General: Skin is warm and dry. Neurological: Mental Status: She is alert and oriented to person, place, and time. Neurological Exam Mental Status Alert. Oriented to person, place, and time. Lab Results Component Value Date SODIUM 136 02/20/2022 POTASSIUM 4.4 02/20/2022 CHLORIDE 102 02/20/2022 CO2 29.2 02/20/2022 BUN 12 02/20/2022 CREATININE 0.71 05/19/2013 Lab Results Component Value Date CHOLESTEROL 217 (H) 09/18/2021 CHOLESTEROL 189 03/21/2019 CHOLESTEROL 160 04/13/2015 CHOLESTEROL 174 10/07/2012 CHOLESTEROL 175 02/27/2011 HDL 51 09/18/2021 HDL 51 03/21/2019 HDL 39 (A) 04/13/2015 HDL 42 10/07/2012 HDL 38 02/27/2011 CHOLTOTALHDL 4.3 09/18/2021 CHOLTOTALHDL 3.7 03/21/2019 . Lab Results Component Value Date WBC 7.1 02/20/2022 MCV 84.3 04/02/2016 Lab Results Component Value Date TSH 0.981 09/18/2021 TSH 1.617 04/02/2016 Lab Results Component Value Date ALT 25 04/13/2015 AST 29 04/13/2015 Lab Results Component Value Date HGBA1C 5.2 09/18/2021 HGBA1C 5.3 03/21/2019 HGBA1C 4.8 04/13/2015 Cardiac MRI 10/19/18: 1. Nearly circumferential subendocardial perfusion defect with septal prominence noted with adenosine stress. In the absence of multi-vessel CAD, this perfusion defect likely represents impaired myocardial perfusion reserve. Patient reported chest pain and dyspnea with adenosine stress. 2. Normal left ventricular size, wall thickness, and systolic function; LVEF=67%. 3. No scarring, fibrosis or myocardial infarction on late gadolinium enhancement imaging. 4. Normal right ventricular size and systolic function. 5. Normal biatrial size. 6. No myocardial edema / inflammation on T2 mapping. 7. No cardiac or hepatic iron overload on T2* mapping. 8. Mild tricuspid regurgitation. Peak aortic velocity is 1.5 m/s on phase contrast imaging. 9. Small pericardial effusion. Of note pt received 13 hour allergy preparation prior to receiving contrast. Post contrast at the end of the exam she slowly developed a rash on her chest and back along with mild throat itching. She was immediately given benadryl and solumedrol with gradual improvement. She received instructions on further evaluation of symptoms and need for follow up. CRITICAL RESULT: No STUDY QUALITY: Good IMPRESSION Nearly circumferential subendocardial perfusion defect with septal prominence noted with adenosine stress. Normal biventricular size and systolic function. No fibrosis or infarct scar. Echo 11/15/17: Conclusions 1. The left ventricular chamber size and systolic function is normal. 2. The right ventricular chamber size and systolic function is normal. 3. There is no hemodynamically significant valvular disease. Stress Test 11/15/17: IMPRESSION: 1. Exercise stress myocardial perfusion scan within normal limits. 2. No evidence of ischemia. 3. No evidence of prior myocardial injury. 4. Normal left ventricular systolic function with LVEF equal to 67%. Event Monitor 10/25/21: Sinus rhythm at baseline and during symptoms of lightheadedness, chest pressure, flutter and shortness of breath. No arrhythmias detected. Echo 03/19/22 today: Normal LV size and function, EF 59%. Normal RV size and function. No hemodynamically significant valve disease. Assessment and Plan 1. cardiomyopathy w/ recovered EF (ACC stage C/NYHA class II) and Microvascular dx/Syndrome X. Warm, dry. -Echo today (above) normal EF, no valvular disease. -Continue Coreg 25mg BID, lisinopril 5mg daily. 02/20/22 K 4.4, Cr 0.76 -Seen by pulmonary for f/u for pulmonary nodules noted in RLL conincidentally on CT. Per Dr. Mack's note, nodules appeared stable/improved therefore following prn. She will follow-up in the clinic 6 months and is to notify the office for any cardiovascular concerns prior to then. A written summary of today's visit as well as an updated medication list were provided, and the patient verbalizes understanding of today's plan. Please do not hesitate to contact us with any questions. This patient was seen in conjunction with Dr. Sosa. * Trip Sosa MD - 03/19/2022 3:15 PM EDT Patient seen with SLOT MACHINE DEPARTMENT FLOORPERSON I saw and personally examined this patient with the nurse practitioner. The patient is generally doing well and is compensated on examination. She does complain of spells of lightheadedness. Her blood pressure and heart rate are normal, during these. Her pulse oximetry is normal during these. We asked her to check her blood glucose during these episodes. Echo today is normal. We will continue thecurrent treatment plan, as outlined in the SLOT MACHINE DEPARTMENT FLOORPERSON note. The plan was developed mutually at the time of the clinic visit. The nurse practitioner and I spoke with the patient and provided written and verbal instructions for the patient. The note has been reviewed and I agree with the assessment and plan. Follow up arrangements were made prior to the patient being discharged from the clinic. documented in this encounterOSU [facility] Evaluation note * Encounter Date Diagnosis Assessment Notes Treatment Notes Treatment Clinical Notes Mar, Dysuria (ICD-10 - R30.0) Mar, Acute cystitis with hematuria (ICD-10 - N30.01) Take medication as directed. Urine analysis shows abnormalities today in office. Urine culture will be sent to lab. Will call with results if resistance present to antibiotic. Increase fluid intake. Follow hygiene guidelines such as wiping front to back, avoid using perfumed lotions, bath beads, bubble bath. Prevention tips inlcude urinating after sexual intercourse. Follow up with primary care provider or sled maker if no improvement of symptoms. [employer] Other Evaluation + Plan note Future Appointments Appointment Date:12/28/2022 10:35:00 AM Scheduled Provider: Location:[facility] Appointment Type:Surgery FT Diagnostic Tests Pending * Enteric Panel by PCR 12/21/22 * Clostridium Difficile PCR 12/21/22 * Fecal WBC Lactoferrin 12/21/22 * O & P Exam, Routine 12/21/22 * Giardia lamblia, Direct Detection EIA 12/21/22 * CBC w/ Auto Diff 12/21/22 * Comprehensive Metabolic Panel 12/21/22 [facility] Evaluation + Plan note Future Appointments Appointment Date:11/04/2023 12:20:00 PM Scheduled Provider:Jessica Lopez CNP Location:[facility] Appointment Type:[facility] Follow Up [facility] Evaluation noteNo assessment information available [facility] Work Phone: Evaluation note* 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 Chronic systolic heart failure [facility] noteNo InformationNortWest [facility] [employer] Other Evaluation note* 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 Palpitations documented in this encounter [facility] note* Diagnosis Other cardiomyopathy- Primary documented in this encounter [facility] note* Diagnosis 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, unspecified site documented in this encounter [facility] note* Diagnosis Other cardiomyopathy- Primary Palpitations documented in this encounter [facility] note* 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 documented in this encounter [facility] note* Diagnosis Cardiac microvascular disease- Primary Other and unspecified angina pectoris documented in this encounter [facility] note* Diagnosis Onset Date Resolution Status Arthralgia acute Family history of lupus acut e Lumbar pain acute [facility] Work Phone: History general Narrative - Reported* Type Description Date Medical History cardiomyopathy [facility] [employer] Other Hospital course Narrative No data available for this section [facility] Hospital Discharge instructions No data available for this section [facility] Hospital Discharge instructionsAmbulatory Orders* Referral to Pain Management Time Frame: 12/10/23, Location: None Selected * Referral to Rheumatology Time Frame: 12/10/23, Location: None Selected [facility] Work Phone: Progress note No data available for this section [facility] Reason for Referral Specialty Diagnoses / Procedures Referred By Fariha valle Referred To Contact MR IMAGING Diagnoses Vascular malformation Congenital vascular anomaly Procedures MRI BRAIN WO IVCON MRI BRAIN BRAIN STEM W/O CONTRAST MATERIAL Jyoti Aguilera, LONGWALL HEADGATE OPERATOR.ORDER ENTRY REPRESENTATIVE [address] [place] [address] [place] [id number] Referral ID Status Reason Start Date Expiration Date Visits Requested Visits Authorized [id number] Pending Review Auto-Generat ed Referral 10/25/2023 11/23/2024 1 1 Specialty Diagnoses / Procedures Referred By Contac t Referred To Contact MR IMAGING Diagnoses Developmental venous anomaly Procedures MRI BRAIN WO/W IVCON MRI BRAIN BRAIN STEM W/O W/CONTRAST MATERIAL Ruth Ramirez PA-C [address] [place] [address] Mr Imaging Referral ID Status Reason Start Date Expiration Date Visits Requested Visits Authorized [id number] Pending Review Auto-Generat ed Referral 06/06/2023 12/14/2023 1 1 Specialty Diagnoses / Procedures Referred By Contac t Referred To Contact Diagnoses Cardiac microvascular disease Chronic systolic heart failure Procedures ECHOCARDIOGRAM IA ECHO HEART XTHORACIC,COMPLETE W DOPPLER Justyna Heller, LONGWALL HEADGATE OPERATOR-ORDER ENTRY REPRESENTATIVE [address] [place] [address] Referral ID Status Reason Start Date Expiration Date Visits Re quested Visits Authorized [id number] Closed 11/27/2021 12/22/2022 1 1 Summary Purpose Family History No Family History Records Found Relationship Condition Age at Onset Recorded Date/T adryan father Unknown Advance Directives No Advanced Directives Records Found Advance Directive Response Recorded Date/ Time Advance Directives No March 16 12:17pm Chief Complaint and Reason for Visit Chief Complaint lower back pain , ab dominal pain Reason for Visit Arthralgia Family history of lupus Lumbar pain Additional Source Comments Care Teams (unrecognized sec tion and content) Team Status: Inactive Member Role Status Dates GENEVIEVE Poole Attending Provider Active Appliance Technician Relationship Specialty Start Date End Date Cj Lazo MD [address] [facility] [place] [address] PCP - General 02/26/11 Appliance Technician Relationship Specialty Start Date End Date Cj Lazo MD [address] [place] [address] [place] [address] PCP - General 02/26/11 Appliance Technician Relationship Specialty Start Date End Date Cj Lazo MD [address] [place] [address] [place] [address] PCP - General 02/26/11 Appliance Technician Relationship Specialty Start Date End Date Cj Lazo MD [address] [facility] [place] [phone] PCP - General Family Medicine 01/13/16 Appliance Technician Relationship Specialty Start Date End Date Cj Lazo MD [address] [facility] [place] [phone] PCP - General Family Medicine 01/13/16 Appliance Technician Relationship Specialty Start Date End Date Cj Lazo MD [address] [place] [address] [place] [address] PCP - General 02/26/11 Appliance Technician Relationship Specialty Start Date End Date Cj Lazo MD [address] [facility] [place] [phone] PCP - General Family Medicine 01/13/16 Appliance Technician Relationship Specialty Start Date End Date Cj Lazo MD [address] [place] [phone] PCP - General Family Medicine 01/13/16 Appliance Technician Relationship Specialty Start Date End Date Cj Lazo MD [address] [facility] [place] [phone] PCP - General Family Medicine 01/13/16 Appliance Technician Relationship Specialty Start Date End Date Cj Lazo MD [address] [place] [address] [place] [address] PCP - General 02/26/11 Team Status: Active Member Role Status Dates Cj Lazo MD Primary Care Provider Active Team Status: Inactive Member Role Status Dates Cj Lazo MD Primary Care Provide r, Attending Provider Active Start: December 10, 2023 End: December 10, 2023 Goals (unrecognized section and content) Goals may be documented in a n alternate sectionNo InformationNo InformationNo Information No data available for this section No data available for this section No data available for this section No data available for this section No data available for this sectionGoals may be documented in an alternate section No data available for this section REASON FOR VISIT (unrecogniz ed section and content) Specialty Diagnoses / Procedures Referred By Contac t Referred To Contact Diagnoses Cardiac microvascular disease Chronic systolic heart failure Procedures ECHOCARDIOGRAM IA ECHO HEART XTHORACIC,COMPLETE W DOPPLER Ericaaaron Justyna Kary, LONGWALL HEADGATE OPERATOR-ORDER ENTRY REPRESENTATIVE [address] [place] [address] Referral ID Status Reason Start Date Expiration Date Visits Re quested Visits Authorized [id number] Closed 11/27/2021 12/22/2022 1 1 Reason Comments Follow-up Reason Onset Date Comments Results 11/06/2022 Reason Comments Question and update Reason Comments Symptoms Reason Comments Provider Question INFORMATION SOURCE (unrecogn ized section and content) DATE CREATED AUTHOR 03/26/2022 [facility] DATE CREATED AUTHOR AUTHOR'S ORGANIZ ATION [facility]/01[facility]2023 [facility] DATE CREATED AUTHOR AUTHOR'S ORGANIZ ATION 05/07/2023 [facility] DATE CREATED AUTHOR AUTHOR'S ORGANIZ ATION 10/08/2023 [facility] EPIC DATE CREATED AUTHOR AUTHOR'S ORGANIZ ATION 11/15/2023 [facility] DATE CREATED AUTHOR AUTHOR'S ORGANIZ ATION 12/21/2023 [facility] Source Comments (unrecognize d section and content) In the event this informatio n is protected by the Federal Confidentiality of Alcohol and Drug Abuse Patient Records regulations: The Federal rules restrict any use of the information to criminally investigate or prosecute any alcohol or drug abuse patient.[facility] the event this information is protected by the Federal Confidentiality of Alcohol and Drug Abuse Patient Records regulations: The Federal rules restrict any use of the information to criminally investigate or prosecute any alcohol or drug abuse patient.[facility] CenterIn the event this information is protected by the Federal Confidentiality of Alcohol and Drug Abuse Patient Records regulations: The Federal rules restrict any use of the information to criminally investigate or prosecute any alcohol or drug abuse patient.[facility] CenterIn the event this information is protected by the Federal Confidentiality of Alcohol and Drug Abuse Patient Records regulations: The Federal rules restrict any use of the information to criminally investigate or prosecute any alcohol or drug abuse patient.[facility] CenterIn the event this information is protected by the Federal Confidentiality of Alcohol and Drug Abuse Patient Records regulations: The Federal rules restrict any use of the information to criminally investigate or prosecute any alcohol or drug abuse patient.[facility] FOR RECORDS PERTAINING TO PATIENTS WHO ARE OR HAVE BEEN ENROLLED IN A CHEMICAL DEPENDENCY/SUBSTANCEABUSE PROGRAM, SOME INFORMATION MAY BE OMITTED. This clinical summary was aggregated from multiple sources. Caution should be exercised in using it in the provision of clinical care. This summary normalizes information from multiple sources, and as a consequence, information in this document may materially change the coding, format and clinical context of patient data. In addition, data may be omitted in some cases. CLINICAL DECISIONS SHOULD BE BASED ON THE PRIMARY CLINICAL RECORDS. [facility]. provides no warranty or guarantee of the accuracy or completeness of information in this document.
[2024-01-08 08:44] LABS: Basophils Absolute Auto 0.1 10^3/uL (0.0-0.1); Basophils Percent Auto 0.6 % (0.2-2.0); Eosinophils Absolute Auto 0.1 10^3/uL (0.0-0.7); Eosinophils Percent Auto 1.2 % (0.9-7.0); Hematocrit 39.8 % (36.0-48.0); Hemoglobin 13.5 g/dL (12.0-16.0); Immature Granulocytes Abs Auto 0.03 10^3/uL (0.00-0.03); Immature Granulocytes Pct Auto 0.3 % (0.0-0.5); Lymphocytes Absolute Auto 1.8 10^3/uL (1.2-3.8); Lymphocytes Percent Auto 20.1 % (20.5-60.0); Mean Corpuscular HGB Conc 33.9 g/dL (29.9-35.2); Mean Corpuscular Volume 91.3 fL (81.0-99.0); Mean Platelet Volume 9.8 fL (9.5-13.5); Monocytes Absolute Auto 0.7 10^3/uL (0.3-0.8); Monocytes Percent Auto 7.6 % (1.7-12.0); Neutrophils Absolute Auto 6.4 10^3/uL (1.4-6.5); Neutrophils Percent Auto 70.2 % (43.0-75.0); Platelet Count 315 10^3/uL (150-450); Red Blood Count 4.36 10^6/uL (4.20-5.40); Red Cell Distribution Width 11.7 % (11.0-15.0); White Blood Count 9.1 10^3/uL (4.0-11.0)
[2024-01-08 08:59] LABS: Carbon Dioxide 27.8 mmol/L (21.0-32.0); Chloride 103 mmol/L (98-107); Estimated GFR (African America >60 (>=60); Estimated GFR (Non-African Ame >60 (>=60); Potassium 3.8 mmol/L (3.5-5.1); Sodium 138 mmol/L (136-145); TSH W/ REFLEX FT4 1.026 uIU/mL (0.358-3.740)
[2024-01-09 08:18] LABS: Rheumatoid Factor (RF) <10.0 IU/mL (<14.0)
[2024-01-13 11:10] LABS: APTT 26.4 sec (.); Thrombin Time 16.9 sec (.)
== END 2024-01-08 07:56 | disposition home or self-care (01) ==
LOC: LAB 07:55
PROVIDERS: PCP Family Medicine
DX: I25.85 Chronic coronary microvascular dysfunction (principal); R00.2 Palpitations; R07.89 Other chest pain
CPT/HCPCS: 36415; 80051; 82565; 83880; 84443; 84520; 85025; 85597; 85598; 85610; 85613; 85670; 85730; 85732; 86146; 86147; 86431

== ENCOUNTER 2024-04-15 08:02 | Outpatient (OUT) | payer OTHER, SELFPAY ==
--- NOTE | 2024-04-15 | US_ITS ---
The [address] [address] Patient Name: SUNSHINE RAMIREZ MRN: [id number] date: 1975 Sex: F Assigned Patient Location: [place] Current Patient Location: Accession/Order Number: [id number] Exam Date: 04/15/2024 08:10 Report Date: 04/19/2024 06:14 At the request of: SPEEDY CHAPPELL Procedure: US thyroid EXAMINATION: US thyroid HISTORY: Swelling, mass, OR LUMP IN HEAD / NECK R22.0 R22.1 COMPARISON: No relevant comparison available. FINDINGS: RIGHT LOBE: Normal size and echotexture. Lobe size: 4.3 x 1.4 x 3.4 cm LEFT LOBE: Enlarged lobe containing a 3.8 cm hypervascular TR 4 nodule. Lobe size: 5.6 x 1.8 x 2.6 cm ISTHMUS: Normal size and echotexture. Thickness: 3 mm US/US thyroid IMPRESSION: 1. 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 Ultrasound-guided fine-needle aspiration is recommended. TR4 (moderately suspicious): If > 1.0 cm, follow-up ultrasound in 1, 2, 3, and 5 years. If > 1.5 cm, fine needle aspiration (FNA). Electronically authenticated by: GABRIELA CONKLIN Date: 04/19/2024 06:14
--- OUTSIDE RECORDS SUMMARY | 2024-04-15 08:05 | XMS_ITS | CCD ---
Author Organization [facility] Care Team Providers Care Shipping/Receiving Clerk Name Role Phone GENEVIEVE Alexander Attending Provider [phone] Cj Lazo MD Primary Care Provider Yas Garcia Unavailable Cj Lazo MD Primary Care Provider Cj Lazo MD Primary Care Provider CJ LAZO Primary Care Physician [phone] MISC, DR PADRON Consulting Unavailable MISC, DR [...] LAZO, DR CJ Rai Primary Care Unavailable RINKESILANA Attending Unavailable RINKES, ILANA Admitting Unavailable ZIEBER, DR GABRIELA Mendoza Consulting Unavailable ILANA STEELE Consulting Unavailable MISC, DR PADRON Admitting Unavailable LAZO, DR CJ Rai Primary Care Unavailable MISC, DR PADRON Consulting Unavailable MISC, DR PADRON Attending Unavailable MISC, DR PADRON Admitting Unavailable MISC, DR PADRON Consulting Unavailable MISC, DR PADRON Attending Unavailable LAZO, DR CJ Rai Primary Care Unavailable Cj Lazo MD Primary Care Provider [phone] CJ LAZO Primary Care Unavailable CJ LAZO Referring Unavailable TRIP SOSA Attending Unavailable VIOLET, CJ Primary Care Unavailable TRIP SOSA Attending Unavailable CJ LAZO Primary Care Unavailable VIOLET, CJ Referring Unavailable ILANA STEELE Attending Unavailable Viral Smith Attending Unavaila Jessica Wade Attending Unavailable Petty AMBROSE Admitting Unavailable LAVONAM, Petty Attending Unavailable SALAM, Dove Referring Unavailable Whitney Lopezh A Attending Unavailable Whitney Lopezh A Attending Unavailable Jessica Lopez Attending Unavailable Allergies Allergy Classification Reported Allergen(s) Allergy Type Date of Onset Reaction(s) Facility (18 sources) fentaNYL; Translations: [fentanyl] Drug Allergy 9 Rash [facility] (17 sources) Midazolam; Translations: [midazolam] Drug Allergy 9 Rash Dyyno Other (5 sources) mri contrast Propensity to adverse reactions 4 Unknown, [facility] (4 sources) gadobutrol Drug Allergy 9 Rash, Itchy Throat, Chills, Dry Mouth [facility] (7 sources) Contrast media; Translations: [contrast media (gadolinium-bas ed)] Drug allergy Rash, Cough [facility] (1 source) fentaNYL Drug Allergy [facility] (1 source) Gadolinium Drug Allergy [facility] (2 sources) Midazolam; Translations: [Versed] Drug Allergy [facility] (4 sources) Gadolinium-Cont aining Contrast Media Drug Allergy 3 Anaphylaxis [facility] (2 sources) gadobutrol Drug Allergy 9 Rash, Itchy Throat, Chills, Dry Mouth [facility] (2 sources) Iodinated Contrast Media Allergy to substance 4 Comment:[facility] Medications Current Medications Medication Drug Class(es) Dates Sig (Normalized) Sig (Original) busPIRone hydrochloride 10 mg oral tablet (1 source) Start: 12-20-2023 take 1 tablet by mouth three times daily busPIRone 10 mg Tab 10 mg = 1 tab(s), Oral, TID, # 90 tab(s), Refills(s) 6, Pharmacy: [facility], 157, cm, 12/20/23 11:01:00 EDT, Height/Length Dosing, 70, kg, 12/20/23 11:01:00 EDT, Weight Dosing Start Date: 12/20/23 Status: Ordered carvedilol 25 mg oral tablet (20 sources) alpha-Adrenergic Nathen, beta-Adrenergic Nathen Start: 12-09-2023 take 1 tablet by mouth twice daily Carvedilol (Coreg) 25 mg tablet Active 1 TAB PO Twice daily December 09, 2023 12:00am FreeTextSi Tablet Orally bid; Note: Source Status: Taking; Provider: Jose Sorenson ( ) Start: 08-04-2023 take 2.5 tablets by mouth [...] guidelines link lisinopril 5 mg oral tablet (19 sources) Angiotensin Converting Enzyme Inhibitor Start: 10-29-2017 [...] Onset: 2 Episodic Other non-traumatic joint disorders (2 sources) Joint pain; Translations: [Pain in unspecified joint] 12-10-2023 Episodic Other non-traumatic joint disorders (1 source) Pain in unspecified joint; Translations: [Pain in joint, site unspecified] 12-10-2023 Episodic Other skin disorders (1 source) Finding of head and neck region; Translations: [Localized swelling, mass and lump, head] 04-13-2024 Episodic Other skin disorders (1 source) Localized swelling, mass and lump, head; Translations: [Swelling, mass, or lump in head and neck] 04-13-2024 Episodic Gelndy-; endo-; and myocarditis; cardiomyopathy (except that caused by tuberculosis or sexually transmitted disease) (6 sources) Cardiomyopathy; Translations: [Other cardiomyopathies] Onset: Chronic Residual codes; unclassified (6 sources) Insomnia; Translations: [Insomnia, unspecified] 07-24-2008 Episodic Spondylosis; intervertebral disc disorders; other back problems (3 sources) Low back pain; Translations: [Lumbar back pain] 12-10-2023 Episodic Unclassified (6 sources) Finding of sensation of abdomen 12-21-2022 Unclassified (3 sources) Family history of lupus erythematosus; Translations: [...] cm, empiric esophageal dilation performed using 58 Qatari Foster dilator 2. Normal gastric mucosa, random [...] had negative impedance test in 2019 in [place] per her report Suspect hypersensitivity 3. Nausea (R11.0: Nausea) Discussed lifestyle modifications- lactose free diet and FODmap diet FDgard OTC Start BusPar 10mg TID Kathleen Knight, personally scribed for Cole Oliver 12/20/2023 11:53:44. . Documentation recorded by Kathleen Pinon, accurately reflects the services I performed and decisions made by me. Viral Smith MD Follow-up With When Contact Information Luis CLINE, Viral Garcia, GAIL, MED Within 3 months [address], [address] [address] [phone] Additional Instructions: Problem Lis (more content not included)... Normal [facility] Comment on above: Result Comment: Elec tronically Signed By: Luis CLINE, Viral Garcia\.br\Date and Time Signed: 12/20/23 11:57 EDT\.br\Electronically Co-Signed By: Kathleen Pinon MA\.br\Date and Time Co-Signed: 12/20/23 11:55 EDT CNPNon 10-29-2023 CNPN Telephone (NECVS8) MARIANNA RAMIREZ ([id number]) 1975 F Date Time Provider Department 10/29/23 ALICIA BOLIVAR NECVS8 During your visit today, we recorded the following information about you: Rina Lord 10/29/2023 4:48 PM Signed CV PHONE Name of caller : Avis Relationship to patient : [facility] If not self Will need patient permission to release results or disclose health information with called documented in fyi. Patient identified by Name and Date of . ( Marianna Ramirez, 1975). Yes Number to return call [phone] Reason for Call: Avis is calling from [facility] to obtain notes and information for prior Auth of MRI WO IVCON. Sent: Thank you calling [facility]. You will receive a return [...] 2:24 PM Signed Received faxes from [facility] with results Jatinder Valle RN 11/15/2023 9:55 AM Signed Returned fax with cover letter stating below: Thank you for the MRI report, please push images electronically to [facility] for further review by Dr. Bolivar's office. Thanks! Jatinder Valle RN [phone], option [phone] Allergies As of Date: 10/29/2023 Noted Allergy Reaction GADOLINIUM-CONTAINING CONTRAST ME*04/14/2023 10 - Anaphylaxis Comments: Throat closing and coughing post MRI with MINI even with premed Date Reviewed: 06/21/2018 Reviewed by: Charles Gutierrez (Drafter Apprentice), DEVORA - Fully Assessed Reason for Visit: [...] Encounter Status:Closed by RINA LORD on 10/29/23 Normal [facility] 10-25-2023 CNPN Telephone (NECVS8) MARIANNA RAMIREZ ([id number]) 1975 F Date Time Provider Department 10/25/23 ALICIA BOLIVAR NECVS8 During your visit today, we recorded the following information about you: Josseline Rina 10/25/2023 2:23 PM Signed CV PHONE Name of caller : Marianna Relationship to patient : Self If not self Will need patient permission to release results or disclose health information with called documented in . Patient identified by Name and Date of . ( Mariannanieves Ramirez, 1975). Yes Number to return call [phone] Reason for Call: Symptoms Call: Symptoms: headache [...] something else going on. Thank you calling [facility]. You will receive a return call within 48 hours ( or 2 business days if close to the weekend). If you feel that this is an urgent issue and needs immediate attention, it is recommended that you contact your primary care provider office or proceed to your nearest Urgent Care Center of Emergency Room ED for evaluation/treatment. Carmita Giraldo, RN 10/25/2023 2:49 PM Signed Returned call [...] to Dr Bolivar's team to review Jatinder Valel RN 10/25/2023 4:06 PM Signed Called patient. She [...] per via [employer] on Wednesday10/26/2023 tracking # [id number] Allergies As of Date: 10/25/2023 Noted Allergy [...] Encounter Status:Closed by CARMITA GIRALDO on 10/25/23 [facility] Ambulatory Visit Summaryon 0 05-04-2023 Ambulatory Visit Summary SAKINA RAMIREZA :1975 Visit Date:05/04/2023 Ambulatory Visit Instructions Your Diagnosis Heartburn RUQ pain Mixed irritable bowel syndrome Dysphagia Abdominal cramping Nausea Your Care Team Attending Physician - Jessiac Lopez CNP Primary Care Physician - CJ [...] any. Fruits (more content not included)... Normal [facility] Gastroenterology Office/Clin ic Noteon 05-04-2023 Gastroenterology [...] reported previous EGD at outside facility in 2019 that showed reported precancerous cells in stomach?no [...] Previous labs (more content not included)... Normal [facility] Comment on above: Result Comment: Elec tronically Signed By: Jessica Lopez CNP\.sumit\Date and Time Signed: 05/04/23 12:42 EDT Patient Educationon 05-04-20 23 Patient Education Gastroenterology Food Choices for Gastroesophageal [...] grapefruit, pineapple, and jeff. Vegetables Deep-fried vegetables. Qatari fries. Any vegetables prepared with added fat. [...] reflux di (more content not included)... Normal [facility] MARIAN[facility] RAMIREZ ([id number]) 1975 F Date Time Provider Department 04/12/23 ALICIA BOLIVAR NECVS8 During your visit today, we recorded the following information about you: [facility]/12[facility]2023 11:59 AM Signed CV PHONE Name of caller : Marianna Relationship to patient : Self If not self Will need patient permission to release results or disclose health information with called documented in . Patient identified by Name and Date of . ( Marianna Ramirez, 1975). Yes Number to return call [phone] Reason for Call: Patient Question/Update: Marianna is calling to say she developed an allergy to contrast and cannot have MRI W/WO. Also she would like to know if she can have it done locally. Please call. Thank you calling [facility]. You will receive a return call within 48 hours ( or 2 business days if close to the weekend). If you feel that this is an urgent issue and needs immediate attention, it is recommended that you contact your primary care provider office or proceed to your nearest Urgent Care Center [facility] Emergency Room ED for evaluation/treatment. Jatinder Valle, LEONID 04/14/2023 10:17 AM Signed Called patient. She [...] Encounter Status:Closed by JATINDER VALLE on 04/14/23 [facility] Provider Letteron 01-28-2023 Provider Letter January 28, 2023 MARIANNA RAMIREZ [address] [place] [id number] : 1975 Dear Marianna , We have been trying to reach you with no success. It is important that you return our call regarding your ultrasound results upon receiving this letter. Also, at the time of your call, please provide us with your current information. Thank you for your prompt attention to this matter. Sincerely, [facility] [phone] Normal [facility] RAD - Ultrasound Reporton RAD - Ultrasound Report [id number]#1 .00CD:127 Normal [facility] Gastroenterology Office/Clin ic Noteon 01-13-2023 Gastroenterology [...] was negative. Patient reported during visit with tx 12/2022 that over the last 4 months [...] changes, gastric (more content not included)... Normal [facility] Comment on above: Result Comment: Elec tronically Signed By: John FARIA, Jessica Rojas\.br\Date and Time Signed: 01/13/23 10:40 EDT Patient [...] these instructions at home: Medicines ? Take fxoy-zdc-yymbboo and prescription medicines only as told by your health care provider. ? If you were prescribed an antibiotic medicine, take it as told by your health care provider. Do not stop taking the antibiotic even if you start to feel better. Eating and drinking ? Make any diet changes as told by your health care provider. ? Work with a diet and director of food and nutrition (dietitian) to create an eating plan that [...] person's throa (more content not included)... Normal [facility] Lab Reportson 01-12-2023 Lab Reports [id number]#1 .00CD:127 [facility] Lab Reportson 01-07-2023 Lab Reports [id number]#1. 00CD:127 [facility] IntraOperative Documentson 0 01-01-2023 IntraOperative Documents [id number] #1.00CD:127 [facility] Postoperative Documentson Postoperative Documents [id number]# 1.00CD:127 [facility] Coding Summary.on 12-30-2022 Coding Summary. CD:[id number] W w+PGhlYWQ+VT8KZPSaR66 cqKWqrP4vY5AJRWrCCqfq NHZQCLdJIsNbklGqAM6xh XNjZXJu IC8+AU3nGILcCktzbJOep 9V8eLJ2G78sah3cQWbqqE Y3MMAsDwWdgekrh3pyvDh 6IDcuNmluOyBt SYQxeL42DQC2aP17Ty69y NRemINhq9louAo5MiEsUI JgRAH0mHyzABrge1CsODV nZ13qcGXpy7T2 YUEhrJludBViCrGpdZV2j I7bYZfntzcpw2zahheqUd u9cy29bNAyg0F4eXE3E7P atnI6JXKvxNNl UhjnoZQQyQ3wsimsu1hff kxpVuDmRUAsPSd6AMn3QB ShuImzUpLsSY64WSK6DFT arbZaE4MmVJRy tGiqUuZ4p9J4Nw2RL5CWK ggsC2DUFGGBQUcldZN+PC 69pj54R5ReAenuVyu5GGF hNIB3iFT4bY0v QOFuVXbnv3U4vNY0V9Uuc yIero5pc3mbGIGsXXczF5 5zeINvd4M4IXQgoIR2PIH pzVuaKcWypM48 Oyc+FHGbjYvce6PzFwpze 1ydk5jegDz7UcvvGDFseg YlkFncRWV4b2KwEo9cKAS isPP7vCG3hI4m FfBfLqV0ZWbhY095GzIyj ZWmEqrbN91sU0MacMO+PH EaPio3QPTbzFooYV4lX2H hZGRpbmctbGVm gMofNA0qRURhvfklTLYsz D2iTLEyQ6l5LxCmOnK2KI xlS3GpHYZfsurwXk71kY2 iAqWcNlP8URzb W9BlxyD2YSSumGHiBCfnO XL4T42mt6M1UNCzFXItLO P8dMA1vF2swFliyyyyyJD mdDsgdmVydGlj BHhlRVgiW772RSSfnCojL kNvZGluZyBEYXRlOiAgMD QvMjYvMjAyMzwvdGQ+PHR jHTQ3gOjyZBFc vADaRElbMa6xfPftdGhrD V3cIZZijebgTJDboQ9eOA CmyWBldCaxBK3lREYspsa gy276DeXpISO3 FJXkcOKqG7UooJ2pWzMpL SDhLWJaA3MhmMGeSCqmJ8 36QWzvQdB9MXQjgbKjY4V sLWFsaWduOiB0 u5M7Ek3Bz5WqlrinI2Ixf IVpMlPrWzzmBZj7G8LiPm wvdHI+ZB43XTEsBK03MEa 8KKC6iVedJKmt LVRhN9WlfB4xFvSdRAPtB GRkOyc+PHRhYmxlIHdpZH RoPScxMDAlJyBzdHlsZT0 bHi3nSTJwANPi gLurmPKiTkWbv6peHDUiV SaxQP6leSqzD7WkcSD9SC Exy0s4Kg31K83oJ5WjlHN +EDMelPB5sPH4 qQ9yJwJsOcV2IPapX211D rNynTNeCymij3esm2ufcQ c9IqD4QWRaqjAebRqsODS 2r6BcJy37I90h IHdpZHRoPSIxNSUiIHZhb Fkjwh4jhS5sUm2+PGNvbC A8bQF4iJ6hMvDzLmH9JVn pB313VqOiaZPj Psbqg8ljr2tkdHg6OoFfP WEanfXlaLdvYYS4n0EeUz 40X7ZywAtdc1JuAqv0hj8 6mOCbw4B7lJE9 V1TeULCoiuxkdUHmtFcnK X9aKIAvviaxIZLgtZ4uMG YpA5o0PrHrEkI7ZHcyB2P vemY0URJofDWf JBXpnMMRaU5ugvnxq1xsp ouaUpZcBCUnLXc4GWk9KE KhpIclRkXcEIC2ErN5IPL 5hMAxqV2swBsb aenszS4eRjz+IPB6rSXec YZQMM3hKybgdNS+PHRkIH E2zQlbAEhtSUAdmB6tGRM aI8o4CxIkXdA5 ECzsE4YmsbM7MYHrrIHuL JYrpSOYqY0esfxio6fgka slHcPcSKDqEFm3VUk6KVR saWduOiBsZWZ0 UoW9KPT1yIZtdZ4ojIehi hqnpV5tMos+QmlydGggRG L1CPr9P8AqTjr7DFGcvGn cKN2zyWViZXyx Vz1fqFvxdAkfUN2pFESzx epoq826KaRpw7bcHLAtbZ HfXAczGYX1U84lj1Q1GWS uBZOdULZ0cMZ5 jD4pnEtumvyyjEDmtXvhs xKpoPfwSWspSDuvS726AG ToyYgdHaRbXFg6P3DnOng 1WWIogPwnPN1k gKDvFSupLk6sqCuhwRwxY C4kJSKekcuuf910NrJzu5 coHSXulOZiTZflYXD5W78 jv1J7BYScIQXo ZPP0uFU7yP3wlVeijxeba GVmdDsgdmVydGljYWwtYW mtQ110CWIidZfnQkNqeOw 6O4HeLki2IDYk aUxlOB7rhMKjNQrwBf1dq UhfvZkpDH5tVKFsxnkgx6 72NxJkq9amKLMkxJLsCDu nBSF0V53tw8K0 CPGvCZEtZTN4gUM6zF2sd GlnbjogbGVmdDsgdmVydG qxOCovROdyP995BRSbsMh nPlBhdGllbnQg OYfxTYs4Q5TfFivqyPO+P Q95DGWjYR70nTHqeCGyq2 zalEl4AbSeJCKmWHB1bVc iMYonf9AdUKVl E69qtYYun6G6EDFrfRvgc KDxEyXpdQX5vU2uXUhsyg jfp2yjtfosVfkki5lfll4 3vD56E03bTZph ZHRoPSIzMCUiIHZhbGlnb o2nkJ0mNq5+PCMflSZ8jR M0pR0yVWTrExD9DDmcR69 9InRvcCIvPjxj o1afj5gogPd2JtN5IMIys kDqkEwaMZN9m6ObIa39U4 9sIHdpZHRoPSIyMCUiIHZ maOevmt5pzV7n Ii8+VHMmqOV0gRP9mZ5uR sWvSzF7ZPhkW287WrTpyU MzVozyG35rS2QylXN+PHR jEei2JEFnpIar VR6ldVVdLKocXo4kCIE8O nTpSaSmSWekT9QdUWGxdt vizbxbeJN9ETXtOIGfsZ1 3Ve7bkUfdMXSp mMYGxH8wyojdw9tedygcS pVyGUYlJWn5XYi7OGLcuP qjIbBoVHY1ZlM4BHO4lCT asX6qnFffxreo iQ7hC1BzJOMsrjdsFu27u Z8xXmNgRqV4UMkjInp+UF WRAoHTZPclLPhHX0LKXX5 0JD00hGKnt2J2 cGS6C5IyWYTovnfxmkwab TD1XAOxVAZglF61hIIaYE eiZs5qh5X0t558KEVpRNL llU37Fp9ffCds EMQmkOAVqK3fxbbji3erl shiYbYeMOIjMRb2DLj9HF McxZqjQwNaQBM1CgC8PXG 3gKZzcS4tzCgr cunhdG3wYgb+MDkvMDMvM Je2GUscfNI+RNGrBBI8mY jbBOqkIXLeyD4kWRHlD0o 7QcMkCnB0APev O6OxLXXrxmwfUs99rE9bW hHcOoT4UUyjT5PbkyW1OJ YtbSJpTWbpVKC3R80vg3M 5GPCdOKCwWUP3 rJW3dT7nzEqsgzbwzLNjd DsgdmVydGljYWwtYWxpZ2 63LMCyqYwsWyW4PJgcLWN rYP20KD72yEQu b6Y0dCD7M5QbJZYxtyvyl hkvoEA9YJRfKZEoyN19bG YgBUvxJd3eu4S4r009VWL hIUXrmT45Xl3s eCqiJHEvnYECtN6mfjuho 3eesejnLxGnCDTvZSe5GM k5DLLpcYflTiUcFSG1XwL 2RBD2aVXggS3r kSwxofexwU3sMgk+RmVtY PlsSE14AR82zQZuh7B8lU F0S2EtOWRzflsajohzdOG 5SCVhCAEdvE02 pUDqXVtzEk7wk3K3p408K EMgUJZbzF00Qt0ewWrbLN PbnQKRuI5ftxknm7wylem gIzAwMDAwMDt0 XOx7IXUkzQwkZfSgELR1H iR2EGS7mTLnxO4hcUkfix kacR6mToo+I6B5dRX3pAV udDwvdGQ+PC90 py12R1ArImtfAem1ISVvA XZ0aFR6hS4bRBMjNYxsq8 G3lSC3Q9CorfVqzc6wr7c wMHMjOFylM58t fKWwo9Z0IDPiaUY6EEEwm ZmoGwKlyR79Wab+PGNvbG xkv8SxZccfq0hgq7qztIv 9IjMwJSIgdmFs tJfeRGW1i8QgQt40W17mD HdpZHRoPSIzMCUiIHZhbG mqgh9mhH5bFi5+PGNvbCB 6fYS3iH6uIzNc OfZ1ICdwQ530XhSiqKQrQ qaun7jxp0kveCx9TxImXJ EhnwXxeTtsJYG0r6GxJr7 6V2CxoXnzw4Ki Snf8mt33rNLod4T7kRW6H 3BhZGRpbmctbGVmdDogMC 9yLCGtzvidFIDorN8wPGU kN0m7MwIiGyC0 DMlaU8JmpyT2DWOqyKKdD QQmkKXQzG4jmphdi7drca oyLdWoZMCmBOi8CYq0ZEJ saWduOiBsZWZ0 KuH3EUU2cSKqoU0msGoti oxscY4zUfd+NDm4o1gjpY WtZU0zbDA3DN08AM91qVU hk5Q6rLY1G9Eb JUHdpowxshflvEG7HFDhM ULphW66Gd1jzCqrYr3kER PyEZX4SRCtxGOzF3PdcT8 yOiAjMDAwMDAw L5NrnQMhKNawB911KGwoS yD0QCZroxNeH5MkQBFhhK xmDrC8h8J4Eb5QPF06ZH9 2RS38jQMuo0W4 qKG9I1UfTLWipacymcllt KQ7LCBhUXRtjJ77Nm6swS kjQm8qWFXhUPI4RHBtfJZ tQ7JvxK6yFuJr DZCmYVIbH1IgaPUlCDbhL 605OAvgWuF3HKXqjgOgW7 WaJIVuyAnvZcW9l3G2Uw3 MGl80NO05ML55 hNAgl6A7sMW9U2XeVJVni mbsfwrpcUI6IPDaWAZyjF 97Zs3ctQakTz6fVVIgUSU 4RMQztMCkC9Hu xC6mVmFsCITdCNQsN1Xsx VTeXLrnZ228XCtiHoC0MT GooeOcK1ZmOFRjtXzfVuO 5a0U2Ak3VHNzp fcz0R3WtRwvkdNL+PC90Y ZXpCK49hZNvvZJdr2zuaH d6GnRkASCrBLC7sZyqIGw on4XbRSBtT79c cAFoj4M0 (more content not included)... Normal [facility] Consenton 12-30-2022 Consent [id number]# 1.00CD:127 Normal [facility] Discharge Instructionson Discharge Instructions [id number]# 1.00CD:127 Normal [facility] OVA AND PARASITE EXAMINATION on 12-30-2022 Ova + Parasite Exam Final report [facility] Comment on above: Result Comment: Thes e results were obtained using wet preparation(s) and trichrome stained smear. This test does not include testing for Cryptosporidium parvum, Cyclospora, or Microsporidia. Performed By: #### C BC #### [facility] [address] [place] [address] Dr. Belkis Ascencio Result 1 Comment Normal [facility] Comment on above: Result Comment: No o va, cysts, or parasites seen. . One negative specimen does not rule out the possibility of a parasitic infection. Performed By: #### C BC #### [facility] [address] [place] [address] Dr. Belkis Ascencio Main OR Intraoperative Recor don 12-29-2022 Main OR Intraoperative Record IntraOp Document Type FT Summary Primary Physician: Petty AMBROSE MD Finalized Date/Time: 12/29/22 13:14:21 Pt. Name: MARIANNA RAMIREZ/Sex: 1975 Female Med Rec #: [id number] Physician: Petty AMBROSE MD Financial #: [id number] Pt. Type: O Room/Bed: / Admit/Disch: 12/28/22 [...] CST, Parvin Kearney Role Performed Anesthesiologist of Insulation Extruder Operator - Primary Scrub - Primary Record Time In 12/28/22 10:27:00 12/28/22 10:27:00 12/28/22 10:27:00 Time Out 12/28/22 10:40:00 12/28/22 10:40:00 12/28/22 10:40:00 Procedure EGD(.) EGD(.) EGD(.) Comments Last Modified By: Isaiah RN, Kalpesh Colon RN, Kalpesh Renee RN 12/28/22 10:41:56 12/28/22 10:41:56 12/28/22 10:41:56 Entry 4 Entry 5 Case Attendee MONSERRAT CLINE, Moni Iverson Role Performed Surgeon - Primary Staff - Other Time In 12/28/22 10:27:00 12/28/22 10:34:00 Time Out 12/28/22 10:40:00 12/28/22 10:40:00 Procedure EGD(.) EGD(.) Comments Last Modified By: Isaiah RN, Kalpesh Colon RN, Kalpesh Rai 12/28/22 10:41:56 12/28/22 10:41:56 Perioperative Protocols FT [...] PreOp Antibiotic No Time Out Frank Tovar MD, Souter RN, Ghada Abreu CST, MONSERRAT Carreno MD, Dove Time Out Complete 12/28/22 10:28:00 Outcomes Met? [...] foster dilator. Primary Procedure Yes Primary Surgeon MONSERRAT CLINE, Petty Start 12/28/22 10:30:00 Stop 12/28/22 10:34:00 Anesthesia [...] Arm P (more content not included)... Normal [facility] Consent for Treatmenton 12-06 Consent for Treatment [id number]#1 .00CD:127 Normal [facility] Endoscopic Procedure Report - Otheron 12-28-2022 [...] cm, empiric esophageal dilation performed using 58 Qatari Foster dilator 2. Normal gastric mucosa, random biopsies obtained from antrum, incisura, gastric body and fundus 3. Normal duodenum Images Procedure images: Rec_hd_video_ _[id number].jpg Rec_hd_video_[id number].jpg Rec1_hd_video_2023__[id number].jpg Rec_hd_video_ _[id number].jpg Rec_hd_video_09__[id number].jpg Rec_hd_video_09__[id number].jpg . Post-Procedure Complications: none. Estimated blood loss: none. Specimens: sent to pathology. Devices/ implants: none left in place. Impression and Plan 1. Normal esophagus, Z line at 40 cm, empiric esophageal dilation performed using [address] Foster dilator 2. Normal gastric mucosa, random biopsies obtained from antrum, incisura, gastric body and fundus 3. Normal duodenum Recommendations: 1. Awaiting pathology report. 2. GI clinic follow-up in 2 weeks [facility] Comment on above: Result Comment: Elec tronically Signed By: Petty AMBROSE MD\.br\Date and Time Signed: 12/28/22 10:38 EDT Other Comment: Chaparrita howard Attachment - attachment storage system not supported [id number] Can be viewed in source systemMissing Attachment - attachment storage system not supported [id number] Can be viewed in source systemMissing Attachment - attachment storage system not supported [id number] Can be viewed in source systemMissing Attachment - attachment storage system not supported [id number] Can be viewed in source systemMissing Attachment - attachment storage system not supported [id number] Can be viewed in source systemMissing Attachment - attachment storage system not supported [id number] Can be viewed in source system Main OR PACU I Recordon 12-06 Main OR PACU I Record PACU Phase I Document Type FT Summary Primary Physician: Petty AMBROSE MD Finalized Date/Time: 12/28/22 11:26:29 Pt. Name: MARIANNA RAMIREZ/Sex: 1975 Female Med Rec #: [id number] Physician: Petty AMBROSE MD Financial #: [id number] Pt. Type: O Room/Bed: / Admit/Disch: 12/28/22 [...] By: Deja Ken RN 12/28/22 11:26 Normal [facility] Main OR Preoperative Recordo n 12-28-2022 Main OR Preoperative Record Holding Area Document Type FT Summary Primary Physician: Petty AMBROSE MD Finalized Date/Time: 12/28/22 10:00:59 Pt. Name: MARIANNA RAMIREZO.B./Sex: 1975 Female Med Rec #: [id number] Physician: Petty AMBROSE MD Financial #: [id number] Pt. Type: O Room/Bed: / Admit/Disch: 12/28/22 [...] Signed By: Tess Cummins RN 12/28/22 10:00 [facility] Monitor Recordon 12-28-2022 Monitor Record [id number]# 1.00CD:127 [facility] Monitor Record [id number] 1.00CD:127 [facility] Progress Note-Physicianon Progress Note-Physician Patient: MARIANNA RAMIREZ Age: 47 years Sex: Female : 1975 Associated Diagnoses: None Author: Frank Tovar MD Postoperative Information Postoperative disposition Optimetrix number: Optimetrix number [id number]. Anesthetic utilized: General. Physical Examination Vital Signs [...] when meets criteria ( To home ). [facility] Comment on above: Result Comment: [...] the: Anesthetic plan. Re-evaluation prior to induction: Frank Tovar MD. Initial evaluation reviewed: No significant change. Review [...] All Problems Abdominal cramping / SNOMED CT 715786212 / Confirmed Acid reflux / SNOMED CT 014788759 / Confirmed Diarrhea / SNOMED CT 355215290 / Confirmed Dysphagia / SNOMED CT 37638715 / Confirmed RUQ pain / SNOMED CT 898479597 / Confirmed, Active Problems (5) Abdominal cramping [...] in all extremities. Gastrointestinal: Soft, Non-tender. Plan [place] [employer]hesi[employer] (ASA) physical status classification: Class II. Anesthetic Preoperative Plan: Anesthesia General. Normal [facility] Comment on above: Result Comment: Elec tronically Signed By: Guy CLINE, Frank Keenan.br\Date and Time Signed: 12/28/22 17:55 EDT Lab Reportson 12-24-2022 Lab Reports [id number] .00CD:127 [facility] Lab Reportson 12-23-2022 Lab Reports [id number] .00CD:127 [facility] Consent for Procedure/Surger yon 12-22-2022 Consent for Procedure/Surgery [id number] .00CD:127 [facility] GI PANEL (PCR)on 12-22-2022 Adenovirus F 40/41 Not detected Normal NOT DETECTED [facility] Comment on above: Performed By: #### C BC #### [facility] [address] [place] [address] Dr. Belkis Ascencio Astrovirus Not detected Normal NOT DETECTED [facility] Comment on above: Performed By: #### C BC #### [facility] [address] [place] [address] Dr. Belkis Vasques. Diff toxin A/B Not detected Normal NOT DETECTED [facility] Comment on above: Performed By: #### C BC #### [facility] [address] [place] [address] Dr. Belkis Ascencio Campylobacter Not detected Normal NOT DETECTED [facility] Comment on above: Performed By: #### C BC #### [facility] [address] [place] [address] Dr. Belkis Ascencio Cryptosporidium Not detected Normal NOT DETECTED [facility] Comment on above: Performed By: #### C BC #### [facility] [address] [place] [address] Dr. Belkis Ascencio Cyclos. Cayetanensis Not detected Normal NOT DETECTED [facility] Comment on above: Performed By: #### C BC #### [facility] [address] [address] [address] Belkis Ascencio E. Coli O157 Not Applicable Normal Not Applicable [facility] Comment on above: Performed By: #### C BC #### [facility] [address] [address] [address] Belkis Ascencio E. histolytica Not detected Normal NOT DETECTED [facility] Comment on above: Performed By: #### C BC #### [facility] [address] [place] [address] Dr. Belkis Ascencio EAEC Not detected Normal NOT DETECTED [facility] Comment on above: Performed By: #### C BC #### [facility] [address] [place] [address] Dr. Belkis Ascencio EIEC Not detected Normal NOT DETECTED [facility] Comment on above: Performed By: #### C BC #### [facility] [address] [place] [address] Dr. Belkis Ascencio EPEC Not detected Normal NOT DETECTED [facility] Comment on above: Performed By: #### C BC #### [facility] [address] [place] [address] Dr. Belkis Ascencio ETEC Not detected Normal NOT DETECTED [facility] Comment on above: Performed By: #### C BC #### [facility] [address] [place] [address] Dr. Belkis Ascencio G. Lamblia Not detected Normal NOT DETECTED [facility] Comment on above: Performed By: #### C BC #### [facility] [address] [place] [address] Dr. Belkis Ascencio GIPANEL CONTROLS PASSED Normal [facility] Comment on above: Performed By: #### C BC #### [facility] [address] [address] [address] [facility]is [facility] BACTERIA Normal [facility] Comment on above: Performed By: #### C BC #### [facility] [address] [address] [address] Belkis WU ECOLI GI PANEL DIARRHEAGENIC E.COLI / SHIGELLA Normal [facility] Comment on above: Performed By: #### C BC #### [facility] [address] [address] [address] Belkis WU INFO SEE BELOW Normal [facility] Comment on above: Result Comment: EAEC - Enteroaggregative E. Coli EPEC- Enteropathogenic E. Coli ETEC- Enterotoxigenic E. Coli lt/st STEC- Shigella-like toxin-producing E. Coli stx1/stx2 EIEC- Shigella/Enteroinvasive E. Coli Performed By: #### C BC #### [facility] [address] [address] [address] Belkis WU PARASITES GI PANEL PARASITES Normal [facility] Comment on above: Performed By: #### C BC #### [facility] [address] [place] [address] Dr. Belkis WU VIRUS GI PANEL VIRUSES Normal [facility] Comment on above: Performed By: #### C BC #### [facility] [address] [address] [address] Belkis Ascencio Norovirus GI/GII Not detected Normal NOT DETECTED [facility] Comment on above: Performed By: #### C BC #### [facility] [address] [address] [address] Belkis Ascencio P. Shigelloides Not detected Normal NOT DETECTED [facility] Comment on above: Performed By: #### C BC #### [facility] [address] [place] [address] Dr. Belkis Ascencio Rotavirus A Not detected Normal NOT DETECTED [facility] Comment on above: Performed By: #### C BC #### [facility] [address] [address] [address] Belkis Ascencio Salmonella Not detected Normal NOT DETECTED [facility] Comment on above: Performed By: #### C BC #### [facility] [address] [place] [address] Dr. Belkis Ascencio Sapovirus Not detected Normal NOT DETECTED [facility] Comment on above: Performed By: #### C BC #### [facility] [address] [place] [address] Dr. Belkis Ascencio STEC Not detected Normal NOT DETECTED [facility] Comment on above: Performed By: #### C BC #### [facility] [address] [place] [address] Dr. Belkis Ascencio Vibrio Not detected Normal NOT DETECTED [facility] Comment on above: Performed By: #### C BC #### [facility] [address] [place] [address] Dr. Belkis Ascencio Vibrio Cholera Not detected Normal NOT DETECTED [facility] Comment on above: Performed By: #### C BC #### [facility] [address] [place] [address] Dr. Belkis Ascencio Y. Enterocolitica Not detected Normal NOT DETECTED [facility] Comment on above: Performed By: #### C BC #### [facility] [address] [place] [address] Dr. Belkis Ascencio RAD - Ultrasound Reporton RAD - Ultrasound Report [id number] .00CD:127 Normal [facility] US SINGLE QUAD RT UPPERon US [...] by: GABRIELA CONKLIN Date: 2022-12-22 12:18 Normal [facility] Ambulatory Visit Summaryon 0 12-21-2022 [...] serving. ? Talk with a diet and director of food and nutrition (dietitian) if you have questions about specific [...] Avocado. Pr (more content not included)... Normal [facility] CBC AUTO DIFFon 12-21-2022 BASO # 0.0 103/ul Normal 0.0-0.1 [facility] Comment on above: Performed By: #### C BC #### [facility] [address] [address] [address] Belkis Ascencio Basophils/100 WBC (Bld) 0.2 % Normal 0.2-2.0 [facility] Comment on above: Performed By: #### C BC #### [facility] [address] [address] [address] Belkis Ascencio EO # 0.1 103/ul Normal 0.0-0.7 [facility] Comment on above: Performed By: #### C BC #### [facility] [address] [address] [address] Belkis Ascencio Eosinophils/100 WBC (Bld) 0.8 % Critically low 0.9-7.0 [facility] Comment on above: Performed By: #### C BC #### [facility] [address] [address] [address] Belkis Ascencio Erythrocyte distribution width (RBC) [Ratio] 11.8 % Normal 11.0-15.0 [facility] Comment on above: Performed By: #### C BC #### [facility] [address] [address] [address] Belkis Ascencio Hematocrit (Bld) [Volume fraction] 38.2 % Normal 36.0-48.0 [facility] Comment on above: Performed By: #### C BC #### [facility] [address] [address] [address] Belkis Ascencio Hemoglobin (Bld) [Mass/Vol] 13.2 g/dL Normal 12.0-16.0 [facility] Comment on above: Performed By: #### C BC #### [facility] [address] [address] [address] Belkis Ascencio IG # 0.03 10e3/ul Normal 0.00-0.03 [facility] Comment on above: Performed By: #### C BC #### [facility] [address] [place] [address] Dr. Belkis Ascencio IG % 0.3 % Normal 0.0-0.5 [facility] Comment on above: Performed By: #### C BC #### [facility] [address] [place] [address] Dr. Belkis Ascencio LYMPH # 1.9 103/ul Normal 1.2-3.8 [facility] Comment on above: Performed By: #### C BC #### [facility] [address] [place] [address] Dr. Belkis Ascencio Lymphocytes/100 WBC (Bld) 21.0 % Normal 20.5-60.0 [facility] Comment on above: Performed By: #### C BC #### [facility] [address] [place] [address] Dr. Belkis Ascencio MANUAL DIFF REQ NO Normal [facility] Comment on above: Performed By: #### C BC #### [facility] [address] [place] [address] Dr. Belkis Ascencio MCH (RBC) [Entitic mass] 30.9 pg Normal 26.7-34.0 [facility] Comment on above: Performed By: #### C BC #### [facility] [address] [place] [address] Dr. Belkis Ascencio MCHC (RBC) [Mass/Vol] 34.6 g/dL Normal 29.9-35.2 [facility] Comment on above: Performed By: #### C BC #### [facility] [address] [address] [address] Belkis Ascencio MCV (RBC) [Entitic vol] 89.5 fL Normal 81.0-99.0 [facility] Comment on above: Performed By: #### C BC #### [facility] [address] [address] [address] Belkis Ascencio MONO # 0.7 103/ul Normal 0.3-0.8 [facility] Comment on above: Performed By: #### C BC #### [facility] [address] [address] [address] Belkis Ascencio Monocytes/100 WBC (Bld) 7.8 % Normal 1.7-12.0 [facility] Comment on above: Performed By: #### C BC #### [facility] [address] [place] [address] Dr. Belkis Ascencio NEUT # 6.5 103/ul Normal 1.4-6.5 [facility] Comment on above: Performed By: #### C BC #### [facility] [address] [place] [address] Dr. Belkis Ascencio Neutrophils/100 WBC (Bld) 69.9 % Normal 43.0-75.0 [facility] Comment on above: Performed By: #### C BC #### [facility] [address] [place] [address] Dr. Belkis Ascencio Platelet mean volume (Bld) [Entitic vol] 9.6 fL Normal 9.5-13.5 [facility] Comment on above: Performed By: #### C BC #### [facility] [address] [place] [address] Dr. Belkis Ascencio PLT 264 103/ul Normal 150-450 [facility] Comment on above: Performed By: #### C BC #### [facility] [address] [place] [address] Dr. Belkis Ascencio RBC 4.27 106/ul Normal 4.20-5.40 [facility] Comment on above: Performed By: #### C BC #### [facility] [address] [place], [place] [address] Dr. Belkis Ascencio WBC 9.3 103/ul Normal 4.0-11.0 [facility] Comment on above: Performed By: #### C #### [facility] [address] [place], [place] [address] Dr. Belkis Ascencio Gastroenterology Office/Clin ic Noteon [...] Enteric Pane (more content not included)... Normal [facility] Comment on above: Result Comment: Elec tronically Signed By: John FARIA, Jessica Rojas\.br\Date and Time Signed: 12/21/22 13:18 EDT PROF 14(COMP METB)on 023 Albumin [Mass/Vol] 4.0 g/dL Normal 3.4-5.0 [facility] Comment on above: Performed By: #### C MP #### [facility] [address] [place] [address] Dr. Belkis Ascencio Albumin/Globulin [Mass ratio] 1.0 {ratio} Normal [facility] Comment on above: Performed By: #### C MP #### [facility] [address] [address] [address] Belkis Ascencio ALP [Catalytic activity/Vol] 43 U/L Critically low 46-116 [facility] Comment on above: Performed By: #### C MP #### [facility] [address] [address] [address] Belkis Ascencio ALT [Catalytic activity/Vol] 18 U/L Normal 14-59 [facility] Comment on above: Performed By: #### C MP #### [facility] [address] [address] [address] Belkis Ascencio Anion gap [Moles/Vol] 9.5 mmol/L Normal [facility] Comment on above: Performed By: #### C MP #### [facility] [address] [address] [address] Belkis Ascencio AST [Catalytic activity/Vol] 13 U/L Critically low 15-37 [facility] Comment on above: Performed By: #### C MP #### [facility] [address] [address] [address] Belkis Ascencio Bilirubin [Mass/Vol] 0.3 mg/dL Normal 0.2-1.0 [facility] Comment on above: Performed By: #### C MP #### [facility] [address] [address] [address] Belkis Ascencio Calcium [Mass/Vol] 9.2 mg/dL Normal 8.5-10.1 [facility] Comment on above: Performed By: #### C MP #### [facility] [address] [address] [address] Belkis Ascencio Chloride [Moles/Vol] 104 mmol/L Normal 98-107 [facility] Comment on above: Performed By: #### C MP #### [facility] [address] [address] [address] Belkis Ascencio CO2 [Moles/Vol] 29.4 mmol/L Normal 21.0-32.0 [facility] Comment on above: Performed By: #### C MP #### [facility] [address] [address] [address] Beliks Ascencio Creatinine [Mass/Vol] 0.68 mg/dL Normal 0.55-1.02 [facility] Comment on above: Performed By: #### C MP #### [facility] [address] [address] [address] Belkis Ascencio EGFR-AF PAKISTANI >60 Normal >=60 [facility] Comment on above: Performed By: #### C MP #### [facility] [address] [address] [address] Belkis Ascencio EGFR-NON AF PAKISTANI >60 Normal >=60 [facility] Comment on above: Performed By: #### C MP #### [facility] [address] [address] [address] Belkis Ascencio Globulin (S) [Mass/Vol] 4.2 g/dL Normal [facility] Comment on above: Performed By: #### C MP #### [facility] [address] [address] [address] Belkis Ascencio Glucose [Mass/Vol] 92 mg/dL Normal 74-106 [facility] Comment on above: Performed By: #### C MP #### [facility] [address] [address] [address] Belkis Ascencio Potassium [Moles/Vol] 3.9 mmol/L Normal 3.5-5.1 [facility] Comment on above: Performed By: #### C MP #### [facility] [address] [address] [address] Belkis Ascencio Protein [Mass/Vol] 8.2 g/dL Normal 6.4-8.2 [facility] Comment on above: Performed By: #### C MP #### [facility] [address] [address] [address] Belkis Ascencio Sodium [Moles/Vol] 139 mmol/L Normal 136-145 [facility] Comment on above: Performed By: #### C MP #### [facility] [address] [address] [address] Belkis Ascencio Urea nitrogen [Mass/Vol] 15.0 mg/dL Normal 7.0-18.0 [facility] Comment on above: Performed By: #### C MP #### [facility] [address] [address] [address] Belkis Ascencio Urea nitrogen/Creatinine [Mass ratio] 22.1 mg/mg Normal [facility] Comment on above: Performed By: #### C MP #### [facility] [address] [place] [address] Dr. Belkis Ascencio Patient Educationon 12-22-19 23 Patient Education Endocrinology High-Fiber Diet Fiber, also called dietary fiber, [...] serving. ? Talk with a diet and director of food and nutrition (dietitian) if you have questions about specific [...] Bulgur wheat. Millet. Quinoa. Bran muffins. Popcorn. [place] wafer crackers. Meats and other proteins [place], kidney, and aparicio beans. Soybeans. Split peas. [...] Cream cheese. Sour cream. Fats and oils [place]. Beverages Soft drinks. Other foods Cakes and [...] 08/23/2006 Document Revised: 06/27/2018 Document Reviewed: 06/27/2018 [employer] Patient Education ? 2020 [employer] Normal [facility] BUNon 12-19-2022 Urea nitrogen [Mass/Vol] 16.0 mg/dL Normal 7.0-18.0 [facility] Comment on above: Performed By: #### B UN, CREA, LIPID, ELEC #### [facility] [address] [place] [address] Dr. Belkis Ascencio CREATININEon 12-19-2022 Creatinine [Mass/Vol] 0.87 mg/dL Normal 0.55-1.02 [facility] Comment on above: Performed By: #### C BC #### [facility] [address] [place] [address] Dr. Belkis Ascencio EGFR-AF PAKISTANI >60 Normal >=60 [facility] Comment on above: Performed By: #### C BC #### [facility] [address] [address] [address] Belkis Ascencio EGFR-NON AF PAKISTANI >60 Normal >=60 [facility] Comment on above: Performed By: #### C BC #### [facility] [address] [place] [address] Dr. Belkis Ascencio ELECTROLYTESon 12-19-2022 Anion gap [Moles/Vol] 10.4 mmol/L Normal [facility] Comment on above: Performed By: #### C BC #### [facility] [address] [place] [address] Dr. Belkis Ascencio Chloride [Moles/Vol] 105 mmol/L Normal 98-107 [facility] Comment on above: Performed By: #### C BC #### [facility] [address] [place] [address] Dr. Belkis Ascencio CO2 [Moles/Vol] 28.4 mmol/L Normal 21.0-32.0 [facility] Comment on above: Performed By: #### C BC #### [facility] [address] [address] [address] Belkis Ascencio Potassium [Moles/Vol] 3.8 mmol/L Normal 3.5-5.1 [facility] Comment on above: Performed By: #### C BC #### [facility] [address] [address] [address] Belkis Ascencio Sodium [Moles/Vol] 140 mmol/L Normal 136-145 [facility] Comment on above: Performed By: #### C BC #### [facility] [address] [address] [address] Belkis Ascencio LIPID PROFILEon 12-19-2022 CHOL-HDL RATIO NORM SEE BELOW Normal [facility] Comment on above: Result Comment: 3.3 - 4.4 LOW RISK 4.4 - 7.1 AVERAGE RISK 7.1 - 11.0 MODERATE RISK >11.0 HIGH RISK Performed By: #### C BC #### [facility] [address] [address] [address] Belkis Ascencio Cholesterol [Mass/Vol] 167 mg/dL Normal <=200 [facility] Comment on above: Performed By: #### C BC #### [facility] [address] [address] [address] Belkis Ascencio Cholesterol in HDL [Mass/Vol] 46 mg/dL Normal 40-60 [facility] Comment on above: Performed By: #### C BC #### [facility] [address] [address] [address] Belkis Ascencio Cholesterol in LDL [Mass/Vol] 107.8 mg/dL Normal [facility] Comment on above: Performed By: #### C BC #### [facility] [address] [address] [address] Belkis Ascencio Cholesterol.total/Ch olesterol in HDL [Mass ratio] 3.6 {ratio} Normal [facility] Comment on above: Performed By: #### C BC #### [facility] [address] [address] [address] Belkis Ascencio HDL NORMAL > or = 60 mg/dl - LO W CARDIOVASCULAR RISK <40 mg/dl - HIGH CARDIOVASCULAR RISK Normal [facility] Comment on above: Performed By: #### C BC #### [facility] [address] [address] [address] Belkis Ascencio LDL CALC NORMAL SEE BELOW Normal [facility] Comment on above: Result Comment: <100 mg/dl OPTIMAL 100 - 129 mg/dl NEAR OR ABOVE OPTIMAL 130 - 159 mg/dl BORDERLINE HIGH 160 - 189 mg/dl HIGH >190 mg/dl VERY HIGH Performed By: #### C BC #### [facility] [address] [address] [address] Belkis Ascencio Triglyceride [Mass/Vol] 66 mg/dL Normal <=150 [facility] Comment on above: Performed By: #### C BC #### [facility] [address] [place] [address] Dr. Belkis Ascencio VLDL CALC 13.2 mg/dL Normal [facility] Comment on above: Performed By: #### C BC #### [facility] [address] [place] [address] Dr. Belkis Ascencio GLYCOHEMOGLOBIN A1Con 2022 ADA RECOMMENDATION SEE BELOW Normal [facility] Comment on above: Result Comment: ADA RECOMMENDED LIMIT 4.0 - 6.0 ADA THERAPEUTIC TARGET < 7.0 ACTION SUGGESTED > 7.0 Performed By: #### C BC #### [facility] [address] [place] [address] Dr. Belkis Ascencio Glucose [Mass/Vol] 100 mg/dL Normal [facility] Comment on above: Performed By: #### C BC #### [facility] [address] [place] [address] Dr. Belkis Ascencio HbA1c (Bld) [Mass fraction] 5.1 % Normal 4.5-6.2 [facility] [facility] Comment on above: Performed By: #### C BC #### [facility] [address] [place] [address] Dr. Belkis Ascencio BUNon 11-05-2022 Urea nitrogen [Mass/Vol] 13.0 mg/dL Normal 7.0-18.0 [facility] Comment on above: Performed By: #### C BC #### [facility] [address] [address] [address] Belkis Ascencio CHEM 7 PANEL, MANUAL ENTERon 11-05-2022 Blood Urea Nitrogen (BUN), MANUAL ENTER 13 [facility] BUN/CREA RATIO, MANUAL ENTER 13 [facility] CALCIUM (CA), MANUAL ENTER [facility] Carbon Diox(CO2), MANUAL ENTER 30.8 [facility] Center Chloride (CL), MANUAL ENTER 101 mmol/L [facility] CREATININE, SERUM, MANUAL ENTER 0.74 mg/dL [facility] Comment on above: eGFR>60 GLUCOSE, MANUAL ENTER [facility] MAGNESIUM (MG), MANUAL ENTER [facility] Phosphate (PO4), Manual Enter [facility] POTASSIUM (K+), MANUAL ENTER 3.5 [facility] SODIUM (NA), MANUAL ENTER 135 [facility] CREATININEon 11-05-2022 Creatinine [Mass/Vol] 0.74 mg/dL Normal 0.55-1.02 [facility] Comment on above: Performed By: #### C BC #### [facility] [address] [place] [address] Dr. Belkis Ascencio EGFR-AF PAKISTANI >60 Normal >=60 [facility] Comment on above: Performed By: #### C BC #### [facility] [address] [address] [address] Belkis Ascencio EGFR-NON AF PAKISTANI >60 Normal >=60 [facility] Comment on above: Performed By: #### C BC #### [facility] [address] [address] [address] Belkis Ascencio ELECTROLYTESon 11-05-2022 Anion gap [Moles/Vol] 6.7 mmol/L Normal [facility] Comment on above: Performed By: #### C BC #### [facility] [address] [place] [address] Dr. Belkis Ascencio Chloride [Moles/Vol] 101 mmol/L Normal 98-107 [facility] Comment on above: Performed By: #### C BC #### [facility] [address] [place], [place] [address] Dr. Belkis Ascencio CO2 [Moles/Vol] 30.8 mmol/L Normal 21.0-32.0 [facility] Comment on above: Performed By: #### C BC #### [facility] [address] [place], [place] [address] Dr. Belkis Ascencio Potassium [Moles/Vol] 3.5 mmol/L Normal 3.5-5.1 [facility] Comment on above: Performed By: #### C BC #### [facility] [address] [place], [place] [address] Dr. Belkis Ascencio Sodium [Moles/Vol] 135 mmol/L Critically low 136-145 [facility] Comment on above: Performed By: #### C BC #### [facility] [address] [place], [place] [address] Dr. Belkis Ascencio MG MAMM SCREEN 3D LORNA CADon 09-15-2022 MG MAMM SCREEN 3D LORNA CAD Patient: MARIANNA RAMIREZ Exam Date: 09/15/2022 : 1975 Gender:F Ordering : DR. ILANA STEELE D.O. Admission #: [id number] Family : Order #: [id number] CLICK HERE TO VIEW EXAM RADIOLOGY REPORT [...] lung cancer at age 40. LOCATION: [facility] BREAST COMPOSITION: Heterogeneously dense,which may obscure small [...] M.D. on 09/15/2022 at 14:50 Normal [facility] BUNon 08-14-2022 Urea nitrogen [Mass/Vol] 15.0 mg/dL Normal 7.0-18.0 [facility] Comment on above: Performed By: #### C BRITTANI, TSH, ELEC, BUN #### [facility] [address] [place] [address] Dr. Belkis Ascencio CBC AUTO DIFFon 08-14-2022 BASO # 0.0 103/ul Normal 0.0-0.1 [facility] Comment on above: Performed By: #### C BC #### [facility] [address] [place] [address] Dr. Belkis Ascencio Basophils/100 WBC (Bld) 0.3 % Normal 0.2-2.0 [facility] Comment on above: Performed By: #### C BC #### [facility] [address] [place] [address] Dr. Belkis Ascencio EO # 0.1 103/ul Normal 0.0-0.7 [facility] Comment on above: Performed By: #### C BC #### [facility] [address] [place] [address] Dr. Belkis Ascencio Eosinophils/100 WBC (Bld) 0.7 % Critically low 0.9-7.0 [facility] Comment on above: Performed By: #### C BC #### [facility] [address] [place] [address] Dr. Belkis Ascencio Erythrocyte distribution width (RBC) [Ratio] 11.4 % Normal 11.0-15.0 [facility] Comment on above: Performed By: #### C BC #### [facility] [address] [place] [address] Dr. Belkis Ascencio Hematocrit (Bld) [Volume fraction] 38.4 % Normal 36.0-48.0 [facility] Comment on above: Performed By: #### C BC #### [facility] [address] [place] [address] Dr. Belkis Ascencio Hemoglobin (Bld) [Mass/Vol] 13.3 g/dL Normal 12.0-16.0 [facility] Comment on above: Performed By: #### C BC #### [facility] [address] [place] [address] Dr. Belkis Ascencio IG # 0.02 10e3/ul Normal 0.00-0.03 [facility] Comment on above: Performed By: #### C BC #### [facility] [address] [place] [address] Dr. Belkis Ascencio IG % 0.2 % Normal 0.0-0.5 [facility] Comment on above: Performed By: #### C BC #### [facility] [address] [place] [address] Dr. Belkis Ascencio LYMPH # 2.1 103/ul Normal 1.2-3.8 [facility] Comment on above: Performed By: #### C BC #### [facility] [address] [place] [address] Dr. Belkis Ascencio Lymphocytes/100 WBC (Bld) 23.1 % Normal 20.5-60.0 [facility] Comment on above: Performed By: #### C BC #### [facility] [address] [place] [address] Dr. Belkis Ascencio MANUAL DIFF REQ NO Normal [facility] Comment on above: Performed By: #### C BC #### [facility] [address] [place] [address] Dr. Belkis Ascencio MCH (RBC) [Entitic mass] 30.9 pg Normal 26.7-34.0 [facility] Comment on above: Performed By: #### C BC #### [facility] [address] [place] [address] Dr. Belkis Ascencio MCHC (RBC) [Mass/Vol] 34.6 g/dL Normal 29.9-35.2 [facility] Comment on above: Performed By: #### C BC #### [facility] [address] [place] [address] Dr. Belkis Ascencio MCV (RBC) [Entitic vol] 89.1 fL Normal 81.0-99.0 [facility] Comment on above: Performed By: #### C BC #### [facility] [address] [place] [address] Dr. Belkis Ascencio MONO # 0.6 103/ul Normal 0.3-0.8 [facility] Comment on above: Performed By: #### C BC #### [facility] [address] [place] [address] Dr. Belkis Ascencio Monocytes/100 WBC (Bld) 6.8 % Normal 1.7-12.0 [facility] Comment on above: Performed By: #### C BC #### [facility] [address] [place] [address] Dr. Belkis Ascencio NEUT # 6.1 103/ul Normal 1.4-6.5 [facility] Comment on above: Performed By: #### C BC #### [facility] [address] [place] [address] Dr. Belkis Ascencio Neutrophils/100 WBC (Bld) 68.9 % Normal 43.0-75.0 [facility] Comment on above: Performed By: #### C BC #### [facility] [address] [place] [address] Dr. Belkis Ascencio Platelet mean volume (Bld) [Entitic vol] 9.4 fL Critically low 9.5-13.5 [facility] Comment on above: Performed By: #### C BC #### [facility] [address] [place] [address] Dr. Belkis Ascencio PLT 305 103/ul Normal 150-450 [facility] Comment on above: Performed By: #### C BC #### [facility] [address] [place] [address] Dr. Belkis Ascencio RBC 4.31 106/ul Normal 4.20-5.40 [facility] Comment on above: Performed By: #### C BC #### [facility] [address] [place] [address] Dr. Belkis Ascencio WBC 8.9 103/ul Normal 4.0-11.0 [facility] Comment on above: Performed By: #### C BC #### [facility] [address] [place] [address] Dr. Belkis Ascencio CREATININEon 08-14-2022 Creatinine [Mass/Vol] 0.73 mg/dL Normal 0.55-1.02 [facility] Comment on above: Performed By: #### C BRITTANI, TSH, ELEC, BUN #### [facility] [address] [place] [address] Dr. Belkis Ascencio EGFR-AF PAKISTANI >60 Normal >=60 [facility] Comment on above: Performed By: #### C BRITTANI, TSH, ELEC, BUN #### [facility] [address] [place] [address] Dr. Belkis Ascencio EGFR-NON AF PAKISTANI >60 Normal >=60 [facility] Comment on above: Performed By: #### C BRITTANI, TSH, ELEC, BUN #### [facility] [address] [place] [address] Dr. Belkis Ascencio ELECTROLYTESon 08-14-2022 Anion gap [Moles/Vol] 10.4 mmol/L Normal [facility] Comment on above: Performed By: #### C BRITTANI, TSH, ELEC, BUN #### [facility] [address] [place] [address] Dr. Belkis Ascencio Chloride [Moles/Vol] 100 mmol/L Normal 98-107 [facility] Comment on above: Performed By: #### C BRITTANI, TSH, ELEC, BUN #### [facility] [address] [place] [address] Dr. Belkis Ascencio CO2 [Moles/Vol] 29.8 mmol/L Normal 21.0-32.0 [facility] Comment on above: Performed By: #### C BRITTANI, TSH, ELEC, BUN #### [facility] [address] [place] [address] Dr. Belkis Ascencio Potassium [Moles/Vol] 4.2 mmol/L Normal 3.5-5.1 [facility] Comment on above: Performed By: #### C BRITTANI, TSH, ELEC, BUN #### [facility] [address] [address] [address] Belkis Ascencio Sodium [Moles/Vol] 136 mmol/L Normal 136-145 [facility] Comment on above: Performed By: #### C BRITTANI, TSH, ELEC, BUN #### [facility] [address] [address] [address] Belkis Ascencio GLYCOHEMOGLOBIN A1Con 2021 ADA RECOMMENDATION SEE BELOW Normal [facility] Comment on above: Result Comment: ADA RECOMMENDED LIMIT 4.0 - 6.0 ADA THERAPEUTIC TARGET < 7.0 ACTION SUGGESTED > 7.0 Performed By: #### A 1C #### [facility] [address] [place] [address] Dr. Belkis Ascencio Glucose [Mass/Vol] 105 mg/dL Normal [facility] Comment on above: Performed By: #### A 1C #### [facility] [address] [address] [address] Belkis Ascencio HbA1c (Bld) [Mass fraction] 5.3 % Normal 4.5-6.2 [facility] Comment on above: Performed By: #### A 1C #### [facility] [address] [address] [address] Belkis Ascencio TSHon 08-14-2022 TSH 1.011 uIU/mL Normal 0.358-3.[address] [facility] Comment on above: Performed By: #### C BRITTANI, TSH, ELEC, BUN #### [facility] [address] [address] [address] Belkis Ascencio Urinalysis - DIPSTICKon - Appearance (U) clougy [employer] Other Bilirubin Ql (U) Negative [employer] Other Color (U) yellow [employer] Other Glucose Ql (U) Negative [employer] Other Hemoglobin Ql (U) moderate [facility] [employer] [employer] Other Ketones Ql (U) Negative [employer] Other Leukocyte esterase Test strip Ql (U) Negative [employer] Other Nitrite Ql (U) Negative [employer] Other pH (U) 6.0 [pH] [employer] Other Protein Ql (U) Negative [employer] Other Specific gravity (U) [Rel density] 1.025 [employer] Other Urobilinogen (U) [Mass/Vol] wnl [employer] Other Urinalysis - DIPSTICK [employer] Other Urine Cultureon 03-22-2022 Bacteria identified Cx Nom (U) Reason for Exam Urinary frequency Urine <9,000 colonies/ml mixed bacterial skin contaminants 2 Days PERFORMED BY: [place] [address] PATHOLOGIST WE[employer] SITE SPECIALIST RUSS MAHAN M.D. Normal [facility] Comment on above: Performed By: #### C UU #### [address] Bacteria identified Cx Nom (U) [employer] Other Cardiac echo study Procedure Ordered By: Vickey Mahan on 03-19-2022 Ao peak wilner 1.48 m/s [facility] Work Phone: Ascending aorta 2.30 cm [facility] Work Phone: AV LVOT peak gradient 5 mmHg [facility] Work Phone: AV peak gradient 9 mmHG [facility] Work Phone: AV Velocity Ratio [facility].[address] [facility] [facility] Work Phone: ROYAL (continuity Vmax) 2.14 cm2 [facility] Work Phone: ROYAL index (continuity Vmax) 1.28 m/s [facility] Work Phone: Avg e' pk wilner 0.12 m/s [facility] Work Phone: Avg E/e' ratio 6.38 [facility] Work Phone: Body surface area Derived from formula 1.67 m2 [facility] Work Phone: DI (Vmax) 0.76 [facility] Work Phone: E wave decelartion time 246.00 msec [facility] Work Phone: e' lateral pk wilner 0.1360 m/s [facility] Work Phone: e' lateral pk wilner 0.14 m/[facility] Work Phone: e' septal pk wilner 0.1110 m/s [facility] e' septal pk wilner 0.11 m/s [facility] Work Phone: E/A ratio 1.39 [facility] Work Phone: [facility]e' [facility]: E/e' septal [facility].[address] [facility] Work Phone: FS 30 % 28 - 44 % [facility] Work Phone: IVC ostium 1.11 cm [facility] Work Phone: IVS 0.69 cm [facility] Work Phone: LA AREA 2CH 14.80 cm2 [facility] Work Phone: LA ESV SP 2CH (MOD) 37 mL [facility] Work Phone: LV mass 88.15 g [facility] Work Phone: LV Mass Index 52.8 g/m2 [facility] Work Phone: LV RWT 0.24 [facility] Work Phone: LVIDD 4.66 cm [facility] Work Phone: LVIDS 3.28 cm [facility] Work Phone: LVOT area 2.83 cm2 [facility] Work Phone: LVOT diameter 1.90 cm [facility] Work Phone: LVOT peak wilner 1.12 m/s [facility] Work Phone: LVOT peak VTI 20.60 cm [facility] Work Phone: LVOT stroke volume 58 cm3 [facility] Work Phone: LVOT stroke volume index 34.96 ml/m2 [facility] Work Phone: MV pk A wilner 0.56 m/s [facility] Work Phone: MV pk E wilner 0.78 m/s [facility] Work Phone: MV stenosis pressure 1/2 time 72.00 ms [facility] Work Phone: MV valve area p 1/2 method 3.06 cm2 [facility] Work Phone: PW 0.56 cm [facility] Work Phone: Right ventricle end diastolic volume index 50.90 mL/m2 [facility] Work Phone: Right ventricle end systolic volume index 20.36 [facility] Work Phone: RV basal diam 2.97 cm [facility] Work Phone: RV EDV 85 mL [facility] Work Phone: RV EF 60 % [facility] Work Phone: RV ESV 34 mL [facility] Work Phone: RV long diam 7.97 cm [facility] Work Phone: RV mid diam 2.09 cm [facility] Work Phone: RV S' 13.80 cm/s [facility] Work Phone: Sinus 2.36 cm [facility] Work Phone: STJ 2.46 cm [facility] Work Phone: Stroke Volume 58 cm/mL [facility] Work Phone: Stroke volume index 35 [facility] Work Phone: TAPSE 2.46 cm [facility] Work Phone: [facility] Work Phone: Cardiac echo study Procedure on [...] independent workstation was performed. Imaging system used: [email or web address]. [facility] Radiology Study observation (narrative) [facility] Urinalysis - AUTOMATEDon Appearance (U) clear [employer] Other Bilirubin Ql (U) Negative [employer] Other Color (U) yellow [employer] Other Glucose Ql (U) Negative [employer] Other Hemoglobin Ql (U) Copytele Other Ketones Ql (U) Negative [employer] Other Leukocyte esterase Test strip Ql (U) [employer] Other Nitrite Ql (U) Negative [employer] Other pH (U) 7.0 [pH] [employer] Other Protein Ql (U) Negative [employer] Other Specific gravity (U) [Rel density] 1.010 [employer] Other Urobilinogen (U) [Mass/Vol] 0.2 mg/dL [employer] Other Urinalysis - AUTOMATED [employer] Other Urine Cultureon 07-07-2022 Bacteria identified Cx Nom (U) ORGANISM: Escherichia coli (O:ESCCOL) [place] Count >100,000 Aerobic ISABELL Charge (NUC86) ---- [...] RESISTANT TO ALL B-LACTAM DRUGS. PERFORMED BY: [place] [address] PATHOLOGIST WEB SITE SPECIALIST RUSS MAHAN M.D. [facility] Comment on above: Performed By: #### C UU #### [address] Urine Culture >100,000 [employer] Other Urine Culture <16 Susceptible [employer] Other Urine Culture >16 Resistant [employer] Other Urine Culture <4 Susceptible [employer] Other Urine Culture 4 Susceptible [employer] Other Urine Culture <2 Susceptible [employer] Other Urine Culture <1 Susceptible [employer] Other Urine Culture <0.5 Susceptible [employer] Other Urine Culture <32 Susceptible [employer] Other Urine Culture >8 Resistant [employer] Other Urine Culture <2/38 Susceptible [employer] Other CBC AUTO DIFFon 02-20-2022 BASO # 0.0 103/ul Normal 0.0-0.1 [facility] Comment on above: Performed By: #### C BC #### [facility] [address] [place] [address] Dr. Belkis Ascencio Basophils/100 WBC (Bld) 0.4 % Normal 0.2-2.0 [facility] Comment on above: Performed By: #### C BC #### [facility] [address] [place] [address] Dr. Belkis Ascencio EO # 0.1 103/ul Normal 0.0-0.7 [facility] Comment on above: Performed By: #### C BC #### [facility] [address] [place] [address] Dr. Belkis Ascencio Eosinophils/100 WBC (Bld) 1.0 % Normal 0.9-7.0 [facility] Comment on above: Performed By: #### C BC #### [facility] [address] [place] [address] Dr. Belkis Ascencio Erythrocyte distribution width (RBC) [Ratio] 11.5 % Normal 11.0-15.0 [facility] Comment on above: Performed By: #### C BC #### [facility] [address] [place] [address] Dr. Belkis Ascencio Hematocrit (Bld) [Volume fraction] 38.8 % Normal 36.0-48.0 [facility] Comment on above: Performed By: #### C BC #### [facility] [address] [place] [address] Dr. Belkis Ascencio Hemoglobin (Bld) [Mass/Vol] 13.2 g/dL Normal 12.0-16.0 [facility] Comment on above: Performed By: #### C BC #### [facility] [address] [place] [address] Dr. Belkis Ascencio IG # 0.01 10e3/ul Normal 0.00-0.03 [facility] Comment on above: Performed By: #### C BC #### [facility] [address] [place] [address] Dr. Belkis Ascencio IG % 0.1 % Normal 0.0-0.5 [facility] Comment on above: Performed By: #### C BC #### [facility] [address] [place] [address] Dr. Belkis Ascencio LYMPH # 1.6 103/ul Normal 1.2-3.8 [facility] Comment on above: Performed By: #### C BC #### [facility] [address] [place] [address] Dr. Belkis Ascencio Lymphocytes/100 WBC (Bld) 22.1 % Normal 20.5-60.0 [facility] Comment on above: Performed By: #### C BC #### [facility] [address] [place] [address] Dr. Belkis Ascencio MANUAL DIFF REQ NO Normal [facility] Comment on above: Performed By: #### C BC #### [facility] [address] [place] [address] Dr. Belkis Ascencio MCH (RBC) [Entitic mass] 31.3 pg Normal 26.7-34.0 [facility] Comment on above: Performed By: #### C BC #### [facility] [address] [place] [address] Dr. Belkis Ascencio MCHC (RBC) [Mass/Vol] 34.0 g/dL Normal 29.9-35.2 [facility] Comment on above: Performed By: #### C BC #### [facility] [address] [place] [address] Dr. Belkis Ascencio MCV (RBC) [Entitic vol] 91.9 fL Normal 81.0-99.0 [facility] Comment on above: Performed By: #### C BC #### [facility] [address] [place] [address] Dr. Belkis Ascencio MONO # 0.6 103/ul Normal 0.3-0.8 [facility] Comment on above: Performed By: #### C BC #### [facility] [address] [place] [address] Dr. Belkis Ascencio Monocytes/100 WBC (Bld) 8.7 % Normal 1.7-12.0 [facility] Comment on above: Performed By: #### C BC #### [facility] [address] [place] [address] Dr. Belkis Ascencio NEUT # 4.8 103/ul Normal 1.4-6.5 [facility] Comment on above: Performed By: #### C BC #### [facility] [address] [place] [address] Dr. Belkis Ascencio Neutrophils/100 WBC (Bld) 67.7 % Normal 43.0-75.0 [facility] Comment on above: Performed By: #### C BC #### [facility] [address] [place] [address] Dr. Belkis Ascencio Platelet mean volume (Bld) [Entitic vol] 9.4 fL Critically low 9.5-13.5 [facility] Comment on above: Performed By: #### C BC #### [facility] [address] [place] [address] Dr. Belkis Ascencio PLT 270 103/ul Normal 150-450 [facility] Comment on above: Performed By: #### C BC #### [facility] [address] [place] [address] Dr. Belkis Ascencio RBC 4.22 106/ul Normal 4.20-5.40 [facility] Comment on above: Performed By: #### C BC #### [facility] [address] [place] [address] Dr. Belkis Ascencio WBC 7.1 103/ul Normal 4.0-11.0 [facility] Comment on above: Performed By: #### C BC #### [facility] [address] [address] [address] Belkis Ascencio PROF CHEM 8 (BAS METB)on Anion gap [Moles/Vol] 9.0 mmol/L Normal [facility] Comment on above: Performed By: #### C BC #### [facility] [address] [place] [address] Dr. Belkis Ascencio Calcium [Mass/Vol] 8.8 mg/dL Normal 8.5-10.1 [facility] Comment on above: Performed By: #### C BC #### [facility] [facility] [address] [place] [address] Dr. Belkis Ascencio Chloride [Moles/Vol] 102 mmol/L Normal 98-107 [facility] Comment on above: Performed By: #### C BC #### [facility] [address] [place] [address] Dr. Belkis Ascencio CO2 [Moles/Vol] 29.2 mmol/L Normal 21.0-32.0 [facility] Comment on above: Performed By: #### C BC #### [facility] [address] [place] [address] Dr. Belkis Ascencio Creatinine [Mass/Vol] 0.76 mg/dL Normal 0.55-1.02 [facility] Comment on above: Performed By: #### C BC #### [facility] [address] [place] [address] Dr. Belkis Ascencio EGFR-AF PAKISTANI >=60 Normal >=60 [facility] Comment on above: Performed By: #### C BC #### [facility] [address] [place] [address] Dr. Belkis Ascencio EGFR-NON AF PAKISTANI >=60 Normal >=60 [facility] Comment on above: Performed By: #### C BC #### [facility] [address] [place] [address] Dr. Belkis Ascencio Glucose [Mass/Vol] 109 mg/dL Critically high 74-106 [facility] Comment on above: Performed By: #### C BC #### [facility] [address] [address] [address] Belkis Ascencio Potassium [Moles/Vol] 4.4 mmol/L Normal 3.5-5.1 [facility] Comment on above: Performed By: #### C BC #### [facility] [address] [address] [address] Belkis Ascencio Sodium [Moles/Vol] 136 mmol/L Normal 136-145 [facility] Comment on above: Performed By: #### C BC #### [facility] [address] [address] [address] Belkis Ascencio Urea nitrogen [Mass/Vol] 12.0 mg/dL Normal 7.0-18.0 [facility] Comment on above: Performed By: #### C BC #### [facility] [address] [address] [address] Belkis Ascencio Urea nitrogen/Creatinine [Mass ratio] 15.8 mg/mg Normal [facility] Comment on above: Performed By: #### C BC #### [facility] [address] [address] [address] Belkis Ascencio Vital Signs Date Time Vital Sign Value Performing Clinician Facility 04-13-2024 [id number] Body height 157.48 cm [facility] 04-13-2024 09:23-0400 Body mass index (BMI) [Ratio] 27.2 kg/m2 [facility] 04-13-2024 09:23-0400 Body weight 67.58 kg [facility] 04-13-2024 09:23-0400 Diastolic blood pressure 72 mm[Hg] [facility] 04-13-2024 09:23-0400 Heart rate 89 /min [facility] 04-13-2024 09:23-0400 SaO2% (BldA) [Mass fraction] 99 % [facility] 04-13-2024 09:23-0400 Systolic blood pressure 110 mm[Hg] [facility] 12-20-2023 10:54-0400 Blood Pressure Location Strattonshakir Shawi [facility] 12-20-2023 10:54-0400 Diastolic blood pressure 60 mm[Hg] Stratton Sarmini [facility] 12-20-2023 10:54-0400 Heart rate 68 /min Stratton Sarmini [facility] 12-20-2023 10:54-0400 Respiratory rate 18 /min Stratton Sarmini [facility] 12-20-2023 10:54-0400 Systolic blood pressure 110 mm[Hg] Stratton Sarmini [facility] 12-10-2023 10:28-0400 Body height 157.48 cm [facility] 12-10-2023 10:28-0400 Body mass index (BMI) [Ratio] 27.6 kg/m2 [facility] 12-10-2023 10:28-0400 Body weight 68.49 kg [facility] 12-10-2023 10:28-0400 Diastolic blood pressure 78 mm[Hg] [facility] 12-10-2023 10:28-0400 Heart rate 80 /min [facility] 12-10-2023 10:28-0400 Systolic blood pressure 115 mm[Hg] [facility] 12-02-2023 14:23-0400 Diastolic blood pressure 67 mm[Hg] Trip Sosa MD Work Phone: [facility] 12-02-2023 14:23-0400 Heart rate 73 /min Trip Sosa MD Work Phone: [facility] 12-02-2023 14:23-0400 Systolic blood pressure 108 mm[Hg] Trip Sosa MD Work Phone: [facility] 12-02-2023 14:21-0400 Body height 157.5 cm Trip Sosa MD Work Phone: [facility] 12-02-2023 14:21-0400 Respiratory rate 18 /min Trip Sosa MD Work Phone: [facility] 12-02-2023 14:21-0400 SaO2% (BldA) [Mass fraction] 97 % Trip Sosa MD Work Phone: [facility] 05-04-2023 12:18-0400 Blood Pressure Location Jessica Lopez [facility] 05-04-2023 12:18-0400 Body temperature 97.52 [degF] Jessica Lopez [facility] 05-04-2023 12:18-0400 Diastolic blood pressure 75 mm[Hg] Jessica Lopez [facility] 05-04-2023 12:18-0400 Heart rate 79 /min Jessica Lopez [facility] 05-04-2023 12:18-0400 Systolic blood pressure 110 mm[Hg] Jessica Lopez [facility] 04-22-2023 15:37-0400 Diastolic blood pressure 68 mm[Hg] Trip Sosa MD Work Phone: [facility] 04-22-2023 15:37-0400 Heart rate 86 /min Trip Sosa MD Work Phone: [facility] 04-22-2023 15:37-0400 Systolic blood pressure 115 mm[Hg] Trip Sosa MD Work Phone: [facility] 04-22-2023 15:36-0400 Body height 157.5 cm Trip Sosa MD Work Phone: [facility] 04-22-2023 15:36-0400 Body mass index (BMI) [Ratio] 25.02 kg/m2 Trip Sosa MD Work Phone: [facility] 04-22-2023 15:36-0400 Body weight 62.05 kg Trip Sosa MD Work Phone: [facility] 04-22-2023 15:36-0400 Respiratory rate 20 /min Trip Sosa MD Work Phone: [facility] 04-22-2023 15:36-0400 SaO2% (BldA) [Mass fraction] 98 % Trip Sosa MD Work Phone: [facility] 01-13-2023 10:12-0400 Blood Pressure Location Jessica Izaguirremetz [facility] 01-13-2023 10:12-0400 Body temperature 97.16 [degF] Jessica Izaguirremetz [facility] 01-13-2023 10:12-0400 Diastolic blood pressure 74 mm[Hg] Jessica John [facility] 01-13-2023 10:12-0400 Heart rate 71 /min Jessicaapril IzaguirreJohn [facility] 01-13-2023 10:12-0400 Systolic blood pressure 107 mm[Hg] Jessica John [facility] 12-28-2022 11:05-0400 Blood Pressure Location Dove SALAM [facility] 12-28-2022 11:05-0400 Diastolic blood pressure 50 mm[Hg] Dove SALAM [facility] 12-28-2022 11:05-0400 Heart rate 75 /min Dove SALAM [facility] 12-28-2022 11:05-0400 Mean blood pressure 66 mm[Hg] Dove SALAM [facility] 12-28-2022 11:05-0400 Respiratory rate 18 /min Dove SALAM [facility] 12-28-2022 11:05-0400 SaO2% (BldA) [Mass fraction] 99 % Dove SALAM [facility] 12-28-2022 11:05-0400 Systolic blood pressure 98 mm[Hg] Dove SALAM [facility] 12-28-2022 10:55-0400 Blood Pressure Location Dove SALAM [facility] 12-28-2022 10:55-0400 Diastolic blood pressure 40 mm[Hg] Dove SALAM [facility] 12-28-2022 10:55-0400 Heart rate 82 /min Dove SALAM [facility] 12-28-2022 10:55-0400 Mean blood pressure 59 mm[Hg] Dove SALAM [facility] 12-28-2022 10:55-0400 Respiratory rate 15 /min Dove SALAM [facility] 12-28-2022 10:55-0400 SaO2% (BldA) [Mass fraction] 98 % Dove SALAM [facility] 12-28-2022 10:55-0400 Systolic blood pressure 98 mm[Hg] Dove SALAM [facility] 12-28-2022 10:50-0400 Blood Pressure Location Dove SALAM [facility] 12-28-2022 10:50-0400 Diastolic blood pressure 45 mm[Hg] Dove SALAM [facility] 12-28-2022 10:50-0400 Heart rate 70 /min Dove SALAM [facility] 12-28-2022 10:50-0400 Mean blood pressure 58 mm[Hg] Dove SALAM [facility] 12-28-2022 10:50-0400 Respiratory rate 20 /min Dove SALAM [facility] 12-28-2022 10:50-0400 SaO2% (BldA) [Mass fraction] 96 % Dove SALAM [facility] 12-28-2022 10:50-0400 Systolic blood pressure 84 mm[Hg] Dove SALAM [facility] 12-28-2022 10:41-0400 Body temperature 97.52 [degF] Dove SALAM [facility] 12-28-2022 10:39-0400 Respiratory rate 18 /min Dove SALAM [facility] 12-28-2022 10:35-0400 Respiratory rate 16 /min Dove SALAM [facility] 12-28-2022 10:28-0400 Respiratory rate 18 /min Dove SALAM [facility] 12-28-2022 09:55-0400 Body temperature 96.98 [degF] Dove SALAM [facility] 12-21-2022 12:45-0400 Blood Pressure Location Jessica John [facility] 12-21-2022 12:45-0400 Body temperature 96.98 [degF] Jessica Lopez [facility] 12-21-2022 12:45-0400 Diastolic blood pressure 77 mm[Hg] Jessica Lopez [facility] 12-21-2022 12:45-0400 Heart rate 66 /min Jessica Lopez [facility] 12-21-2022 12:45-0400 Systolic blood pressure 116 mm[Hg] Jessica Lopez [facility] 10-01-2022 14:42-0500 Diastolic blood pressure 66 mm[Hg] Trip Sosa MD Work Phone: [facility] 10-01-2022 14:42-0500 Heart rate 94 /min Trip Sosa MD Work Phone: [facility] 10-01-2022 14:42-0500 Systolic blood pressure 102 mm[Hg] Trip Sosa MD Work Phone: [facility] 10-01-2022 14:40-0500 Body height 157.5 cm Trip Sosa MD Work Phone: [facility] 10-01-2022 14:40-0500 Body mass index (BMI) [Ratio] 27.98 kg/m2 Trip Sosa MD Work Phone: [facility] 10-01-2022 14:40-0500 Body weight 69.4 kg Trip Sosa MD Work Phone: [facility] 10-01-2022 14:40-0500 Respiratory rate 16 /min Trip Sosa MD Work Phone: [facility] 10-01-2022 14:40-0500 SaO2% (BldA) [Mass fraction] 97 % Trip Sosa MD Work Phone: [facility] 03-22-2022 15:50-0400 Body height 157.48 cm Yas Garcia Other [facility] Other 03-22-2022 15:50-0400 Body mass index (BMI) [Ratio] 26.52 kg/m2 Yas Jose Other [facility] Other 03-22-2022 15:50-0400 Body temperature 97.7 [degF] Yas Garcia Other [facility] Other 03-22-2022 15:50-0400 Body weight 65.77 kg Yas Garcia Other [facility] Other 03-22-2022 15:50-0400 SaO2% (BldA) [Mass fraction] 97 % Yas Garcia Other [facility] Other 03-19-2022 15:18-0400 Diastolic blood pressure 69 mm[Hg] Trip Sosa MD Work Phone: [facility] 03-19-2022 15:18-0400 Heart rate 76 /min Trip Sosa MD Work Phone: [facility] 03-19-2022 15:18-0400 Systolic blood pressure 120 mm[Hg] Trip Sosa MD Work Phone: [facility] 03-19-2022 15:17-0400 Body height 157.5 cm Trip Sosa MD Work Phone: [facility] 03-19-2022 15:17-0400 Body mass index (BMI) [Ratio] 27.25 kg/m2 Trip Sosa MD Work Phone: [facility] 03-19-2022 15:17-0400 Body weight 67.59 kg Trip Sosa MD Work Phone: [facility] 03-19-2022 15:17-0400 Respiratory rate 16 /min Trip Sosa MD Work Phone: [facility] 03-19-2022 15:17-0400 SaO2% (BldA) [Mass fraction] 97 % Trip Sosa MD Work Phone: [facility] 03-19-2022 14:02-0400 Body height 157.5 cm Justyna Heller GENERALIST-RN PRACTITIONER Work Phone: [facility] 03-19-2022 14:02-0400 Body mass index (BMI) [Ratio] 26.65 kg/m2 Justyna Heller GENERALIST-RN PRACTITIONER Work Phone: [facility] 03-19-2022 14:02-0400 Body weight 66.1 kg Justyna Heller GENERALIST-RN PRACTITIONER Work Phone: [facility] 03-19-2022 14:02-0400 Diastolic blood pressure 67 mm[Hg] Justyna Heller GENERALIST-RN PRACTITIONER Work Phone: [facility] 03-19-2022 14:02-0400 Systolic blood pressure 136 mm[Hg] Justyna Heller APRN-RN PRACTITIONER Work Phone: [facility] 03-12-2022 18:40-0400 Body height 157.48 cm Denise Alexander Other [facility] Other 03-12-2022 18:40-0400 Body mass index (BMI) [Ratio] 26.52 kg/m2 Denise Alexander Other [facility] Other 03-12-2022 18:40-0400 Body temperature 97.9 [degF] Denise Alexander Other [facility] Other 03-12-2022 18:40-0400 Body weight 65.77 kg Denise Alexander Other [facility] Other 03-12-2022 18:40-0400 Diastolic blood pressure 71 mm[Hg] Denise Alexander Other [facility] Other 03-12-2022 18:40-0400 Respiratory rate 16 /min Denise Alexander Other [facility] Other 03-12-2022 18:40-0400 SaO2% (BldA) [Mass fraction] 99 % Denise Alexander Other [facility] Other 03-12-2022 18:40-0400 Systolic blood pressure 124 mm[Hg] Denise Alexander Other [facility] Other Encounters Encounter Date Encounter Type Care Provider Facility Start: 04-13-2024 End: 04-13-2024 ambulatory [facility] Work Phone: Start: 04-13-2024 End: 04-13-2024 Patient encounter procedure On License Of [facility] Physician [facility] Work Phone: Start: 12-20-2023 End: 12-21-2023 ambulatory Stratton Talal Sarmini Facility:[facility] Start: 12-20-2023 End: 12-20-2023 Patient encounter procedure Stratton Talal Sarmini [facility] Start: 12-10-2023 End: 12-10-2023 ambulatory [facility] Work Phone: Start: 12-10-2023 End: 12-10-2023 [facility] Start: 12-02-2023 End: 12-02-2023 Office outpatient visit 15 minutes Trip Sosa MD Work Phone: [facility] Comment on above: Cardiac microvascula r disease (Primary Dx) Start: 11-04-2023 End: 11-05-2023 ambulatory Jessica Lopez [facility] Start: 11-04-2023 End: 11-04-2023 Patient encounter procedure Jessica Lopez [facility] Start: 10-29-2023 Telephone encounter Alicia baumann MD Work Phone: [facility] [place] Comment on above: Provider Question Start: 10-25-2023 Telephone encounter Alicia baumann MD Work Phone: [facility] Comment on above: Symptoms Vascular malformatio n (Primary Dx); Congenital vascular anomaly Start: 10-07-2023 End: 10-07-2023 ambulatory ILANA STEELE Not Available Start: 05-04-2023 End: 05-05-2023 ambulatory Jessica Lopez Facility:[facility] Start: 05-04-2023 End: 05-04-2023 Patient encounter procedure Jessica Lopez [facility] Start: 04-22-2023 ambulatory TRIP SOSA Facil ity:[facility] Start: 04-22-2023 End: 04-23-2023 Office outpatient visit 15 minutes Trip Sosa MD Work Phone: [facility] Comment on above: Other cardiomyopathy (Primary Dx); Palpitations Start: 04-12-2023 Telephone encounter Alicia baumann MD Work Phone: [facility] [place] Comment on above: Question and update Start: 01-13-2023 End: 01-14-2023 ambulatory Jessica Lopez [facility] Start: 01-13-2023 End: 01-13-2023 Patient encounter procedure Jesscia Lopez [facility] Start: 12-28-2022 End: 12-29-2022 ambulatory Petty MONSERRAT Facility[facility] Start: 12-28-2022 End: 12-28-2022 Patient encounter procedure Petty AMBROSE [facility] Start: 12-22-2022 End: 12-23-[address] DOCTOR HENAO Facility:[facility] Start: 12-21-2022 End: 12-22-[address] DOCTOR HENAO Facility:[facility] Start: 12-21-2022 End: 12-22-2022 ambulatory Jessica Lopez Facility:[facility] Start: 12-21-2022 End: 12-21-2022 Patient encounter procedure Jessica Lopez [facility] Start: 12-19-2022 End: 12-20-[address] DOCTOR HENAO Facility:[facility] Start: 11-19-2022 End: 11-20-[address] DOCTOR HENAO Facility:[facility] Start: 11-14-2022 Orders Only Alicia Bolivar MD Work Phone: [facility] Comment on above: Developmental venous anomaly (Primary Dx) Start: 11-06-2022 ambulatory Kia Colin RN [facility] Start: 11-05-2022 End: 11-06-[address] DOCTOR HENAO Facility:[facility] Start: 10-01-2022 ambulatory CJ LAZO Facility:[facility] Start: 10-01-2022 End: 10-01-2022 Office outpatient visit 15 minutes Trip Sosa MD Work Phone: [facility] Comment on above: Other cardiomyopathy (Primary Dx) Start: 09-15-2022 End: 09-16-[address] CJ LAZO Facility:[facility] Start: 08-14-2022 End: 08-15-[address] DOCTOR HENAO Facility:[facility] Start: 03-24-2022 End: 03-24-2022 ambulatory Yas Garcia Other [facility] Other Start: 03-24-2022 Telephone encounter Yas Garcia [facility] Start: 03-22-2022 End: 03-22-2022 ambulatory Yas Garcia Other [facility] Other Start: 03-22-2022 Office outpatient vi sit 15 minutes Yas Garcia [facility] Start: 03-19-2022 End: 03-19-2022 Office outpatient visit 15 minutes Trip Sosa MD Work Phone: [facility] Comment on above: Cardiac syndrome X ( Primary Dx); Palpitations Start: 03-19-2022 End: 03-19-2022 Subsequent hospital visit by physician Justyna Heller APRN-RN PRACTITIONER Work Phone: [facility] Comment on above: Arrived Start: 03-12-2022 End: 03-12-2022 Departed Referred SPEECH LANGUAGE PATHOLOGIST-C Denise Alexander Work Phone: [facility] [place] Start: 03-12-2022 End: 03-12-2022 ambulatory Denise Alexander Other [facility] Other Start: 03-12-2022 Office outpatient ne w 20 minutes Denise Alexander [facility] Start: 02-20-2022 End: 02-21-[address] DOCTOR HENAO Facility:[facility] Procedures Date Procedure Procedure Detail Performing Clinician Start: 12-28-2022 Esophagogastroduodenoscopy Petty AMBROSE Comment on above: esophageal dilation; multiple stomach bi opsies Start: 12-19-2022 Lipid 1996 panel - Serum or Plasma Jamel Sosa MD Work Phone: Start: 11-05-2022 CHEM 7 PANEL, MANUAL ENTER Historical Provider Start: 03-19-2022 Echo tthrc r-t 2d w/wom-mode compl spec&colr d Justyna Heller GENERALIST-RN PRACTITIONER Work Phone: Start: 03-12-2022 Piperacillin/tazobactam Denise valle Other Start: 09-18-2021 Lipid 1996 panel - Serum or Plasma Justyna Heller GENERALIST-RN PRACTITIONER Work Phone: Start: 09-27-2020 Colonoscopy Jessica John Esophagogastroduoden oscopy gastric outlet reduction Jessica Lopez Plan of Treatment Date Care Activity Detail Author Start: 12-20-2027 Lipid panel LIPID SCREENING [facility] Start: 09-18-2026 Fasting lipid profile LIPID SCREENIN [facility] Start: 09-18-2026 Lipid panel LIPID SCREENING [facility] Start: 01-05-2026 Tetanus vaccination TETANUS [facility] Start: 01-05-2026 Urine microalbumin profile DTaP,Tdap,Td Vaccine (2 - Td or Tdap) [facility] Start: 09-18-2024 Diabetes Screening Diabetes Screenin [facility] Start: 06-08-2024 End: 06-08-2024 Patient encounter procedure 06/08/2024 3:15 PM EDT Office Visit [facility] [address] [place] [phone] Trip Sosa MD [address] [place] [address] [facility] Start: 12-10-2023 Patient referral [facility] Work Phone: Start: 11-04-2023 End: 11-04-2023 Patient encounter procedure 11/04/2023 3:15 PM EST Office Visit [facility] [address] [place] [phone] Trip Sosa MD [address] [place] [phone] [facility] Start: 09-22-2023 Screening for malign ant neoplasm of breast MAMMOGRAM SCREENING DISCUSSION [facility] Start: 09-06-2023 [facility] Start: 06-06-2023 End: 12-14-2023 Mri brain brain stem w/o w/contrast material MRI BRAIN WO/W IVCON Radiology Routine Developmental venous anomaly Expected: 06/06/2023 (Approximate), Expires: 12/14/2023 [facility] Work Phone: Comment on above: Expected: 06/06/2023 (Approximate), Expires: 12/14/2023 Start: 05-07-2023 COVID-19 VACCINE ( season) COVID-19 VACCINE () [facility] Start: 05-07-2023 Influenza vaccination [facility] Start: 04-22-2023 End: 04-22-2023 Patient encounter procedure 04/22/2023 Office Visit Cardiovascular Medicine Trip Sosa MD [address] [place] [phone] [facility] Start: 10-01-2022 End: 10-01-2022 Patient encounter procedure 10/01/2022 Office Visit Cardiovascular Medicine Trip Sosa MD [address] [place] [phone] [facility] Start: 09-06-2022 [facility] Start: 05-07-2022 Influenza vaccination [facility] Start: 03-12-2022 Bacteria identified in Urine by Culture Urine Culture [facility] Start: 02-16-2021 DIABETES SCREEN DIABETES SCREEN [facility] Start: 12-17-2020 DIABETES SCREEN DIABETES SCREEN [facility] Start: 2020 COLOGUARD (FIT-DNA) COLOGUARD (FIT-D NA) [facility] Start: 2020 Colonoscopy [facility] Start: 2020 COLORECTAL CANCER SCREENING COLORECTAL CANCER SCREENING [facility] Start: [address] COLONOGRAPHY [facility] Start: 2020 FECAL OCCULT BLOOD FECAL OCCULT BLOO D [facility] Start: 2020 LIPID SCREEN LIPID SCREEN [facility] Start: 2020 Screening for malign ant neoplasm of colon [facility] Start: 2020 SIGMOIDOSCOPY SIGMOIDOSCOPY [facility] Start: 2015 Mammography MAMMOGRAM [facility] Start: 2015 Screening for malign ant neoplasm of breast [facility] Start: 2015 Screening mammography MAMMOGRA M SCREENING DISCUSSION [facility] Start: 2005 HPV TESTING HPV TESTING [facility] Start: 2005 Screening for malign ant neoplasm of cervix HPV Testing [facility] Start: 1996 PAP TESTING PAP TESTING [facility] Start: 1996 Screening for malign ant neoplasm of cervix [facility] Start: 1994 Third diphtheria, tetanus and acellular pertussis (DTaP) vaccination TDAP (ADULT) [facility] Start: 1994 Urine microalbumin profile DTAP,TDAP,TD (1 - Tdap) [facility] Start: 1993 HIV SCREENING HIV SCREENING [facility] Start: 1993 HIV screening HIV Screening [facility] Start: 1993 Tetanus vaccination TETANUS [facility] Start: 1990 HIV screening HIV SCREENING DISCUSSI ON [facility] Start: 1975 COVID-19 VACCINE (#1) COVID-19 VACCI NE (#1) [facility] Start: 1975 HEPATITIS B (1 of 3 - 3-dose series) HEPATITIS B (1 of 3 - 3-dose series) [facility] Start: 1975 Hepatitis C antibody , confirmatory test HEPATITIS C VIRUS SCREENING [facility] Start: 1975 Hepatitis C screening HEPATITI S C VIRUS SCREENING [facility] Start: 1975 Tetanus vaccination TETANUS [facility] Bacteria identified in Urine by Culture [facility] Work Phone: End: 11-23-2024 MR Brain WO contrast MRI BRAIN WO IVCON Radiology Routine Vascular malformation Congenital vascular anomaly 1 Occurrences starting 10/25/2023 until 11/23/2024 [facility] Work Phone: Comment on above: 1 Occurrences starti ng 10/25/2023 until 11/23/2024 Patient referral [facility] Work Phone: Thyroid gland [place] [facility] XR Lumbar spine 2 or 3 Views [facility] Immunizations Immunization Date Immunization Notes Care Provider Fa cilijason 07-09-2016 hepatitis A and hepatitis B vaccine [facility] 02-04-2016 hepatitis A and hepatitis B vaccine [facility] 01-06-2016 hepatitis A and hepatitis B vaccine [facility] 01-06-2016 tetanus toxoid, reduced diphtheria toxoid, and acellular pertussis vaccine, adsorbed [facility] 01-06-2016 typhoid vaccine, unspecified formulation [facility] NEGATED: Highlighted row has not occurred!11-03-2023 influenza virus vaccine, unspecified formulation [facility] Payers Date Payer Category Payer Unknown [id number] 1975 Unknown [id number] 2.16.84 0.1.191111.3.579.2.593 1975 Unknown [id number] 2.16.84 0.1.385040.3.579.2.593 1975 Unknown [id number] 2.16.84 0.1.257874.3.579.2.593 1975 Unknown [id number] 2.16.84 0.1.252843.3.579.2.593 1975 Unknown [id number] 2.16.84 0.1.467909.3.579.2.593 1975 Unknown [id number] 2.16.84 0.1.121104.3.579.2.593 1975 Unknown [id number] 2.16.84 0.1.424430.3.579.2.593 1975 Unknown [id number] 2.16.84 0.1.008606.3.579.2.593 1975 Unknown [id number] 2.16. 840.1.306477.3.579.2.594 1975 Unknown [id number] 2.16. 840.1.865229.3.579.2.594 1975 Unknown [id number] 2.16. 840.1.413213.3.579.2.594 1975 Unknown [id number] 2.16.84 0.1.642125.3.579.2.1259 1975 Unknown [id number] 2.16.8 40.1.848329.3.579.2.727 1975 Unknown [id number] 2.16.8 40.1.214979.3.579.2.727 1975 Unknown [id number] 2.16.8 40.1.620293.3.579.2.727 1975 Unknown [id number] 2.16.8 40.1.836385.3.579.2.727 1975 Unknown [id number] 2.16.8 40.1.930231.3.579.2.727 1975 Unknown [id number] 2.16.8 40.1.467353.3.579.2.727 1959 Unknown [id number] 2. [id number] Self-pay Self Pay [id number] Social History Date Type Detail Facility Tobacco smoking stat us NHIS Unknown if ever smoked [facility] Work Phone: Start: 1975 Sex Assigned At Female F [facility] Start: 06-21-2018 End: 04-22-2023 Sex Assigned At [facility] Start: 03-20-2021 End: 12-06-2023 Tobacco smoking status NHIS Never smoked tobacco [facility] Start: 03-20-2021 End: 04-22-2023 Tobacco use and exposure Smokeless tobacco non-user [facility] Start: 03-19-2022 End: 04-22-2023 Alcohol intake Current non-drinker of alcohol (finding) [facility] Start: 03-19-2022 End: 04-22-2023 Alcohol intake [facility] Start: 1975 Sex Assigned At Not on file [facility] Start: 09-21-2022 End: 10-01-2022 Exposure to SARS-CoV-2 (event) Not sure [facility] Start: 06-21-2018 Alcohol intake Not Asked Humberto Jones Tobacco smoking status Never [facility] Gender identity Identifies as fe male gender (finding) [facility] Functional Status Date Assessment Result Facility 12-20-2023 Functional Status N/A [facility] 05-04-2023 Functional Status N/A [facility] 01-13-2023 Functional Status N/A [facility] 12-28-2022 Functional Status N/A [facility] 12-21-2022 Functional Status N/A [facility] Clinical Notes 03-12-2022 to 12-03-2023 Mario Pascal RN - 12/02/2023 2:15 PM EDLizzy Heller APRN-GIANA - 12/02/2023 2:15 PM EDBlayne Sosa MD - 12/02/2023 2:15 PM EDTPatient InstructionsPatient Instructions Note Date & Type Note Facility 12-03-2023 Hospital Discharge instructions Follow Up Care 12/03/2023 15:41:19 With:Luis CLINE, Viral Garcia [facility] Address: [address] [place] [address], [address] [address]- [phone] When:3 months [facility] 12-02-2023 History of Present illness Narrative Patient Education Patient education regarding the following topic(s) was provided on 12/02/2023: plan of care . Those in attendance for the education included: patient and spouse. Barriers in providing the education included: none. The following methods were used in providing the education: explanation and handout. [facility] handouts given included: After visit summary. [...] symptoms, followed with GI in the past ( retired) Due for annual EGD (for gastric [...] conjunction with Dr. Sosa. Patient seen with BOAT HOIST OPERATOR HELPER I saw and personally examined this patient with the nurse practitioner. The patient is generally doing well and is compensated on examination. Her complaints seem referable to the gastrointestinal and skeletal muscle systems. 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 Otherwise, we will continue the current treatment plan, as outlined in the BOAT HOIST OPERATOR HELPER note. The plan was developed mutually at the time of the clinic visit. The nurse practitioner and I spoke with the patient and provided written and verbal instructions for the patient. The note has been reviewed and I agree with the assessment and plan. Follow up arrangements were made prior to the patient being discharged from the clinic. documented in this encounter [facility] 12-02-2023 Instructions REINA Erickson - 12/02/2023 2:15 PM EDT The following instructions were given today: -follow up with rheumatology and gastroenterology Your after visit summary (AVS) is viewable in [facility] My Chart. Call RN if you have cardiac questions/concerns M-F 8 to 4:30 ; office # [phone], option 6, then option 2. Guidelines for home management: 1. Continue to monitor weight first thing each morning. 2. Report to the CHF CLINIC ([phone]) any significant weight change. Remember that weight [...] to have labs/tests run outside of the [facility] and you do not hear from us 1-2 days after they are performed, you must call us to ensure we received the results. Office fax # [phone]. No news does not necessarily mean that your tests are normal, it could mean we did not get the results. For questions/updates: please provide your name with spelling, date of and question or update All calls are prioritized and responses researched, if possible, prior to calls being returned. Call Scheduling for any appointment/procedure verification or changes [phone], option 7 or [facility] Schedulers at [phone], option 1. documented in this encounter [facility] 10-29-2023 Miscellaneous Notes CV PHONE Name of caller : Avis Relationship to patient : [facility] If not self Will need patient permission to release results or disclose health information with called documented in fyi. Patient identified by Name and Date of . ( Marianna Devonte, 1975). Yes Number to return call [phone] Reason for Call: Avis is calling from [facility] to obtain notes and information for prior Auth of MRI WO IVCON. Sent: Thank you calling [facility]. You will receive a return call within 48 hours ( or 2 business days if close to the weekend). If you feel that this is an urgent issue and needs immediate attention, it is recommended that you contact your primary care provider office or proceed to your nearest Urgent Care Center of Emergency Room ED for evaluation/treatment. documented in this encounter [facility] 10-25-2023 Miscellaneous Notes Called patient. She also [...] review CV PHONE Name of caller : Marinana Relationship to patient : Self If not self Will need patient permission to release results or disclose health information with called documented in fyi. Patient identified by Name and Date of . ( Marianna Ramirez, 1975). Yes Number to return call [phone] Reason for Call: Symptoms Call: Symptoms: headache [...] something else going on. Thank you calling [facility]. You will receive a return call within 48 hours ( or 2 business days if close to the weekend). If you feel that this is an urgent issue and needs immediate attention, it is recommended that you contact your primary care provider office or proceed to your nearest Urgent [facility] Emergency Room ED for evaluation/treatment. documented in this encounter [facility] 05-04-2023 Hospital Discharge instructions Patient Education 05/04/2023 [...] grapefruit, pineapple, and jeff. Vegetables Deep-fried vegetables. Qatari fries. Any vegetables prepared with added fat. [...] provider. Document Revised: 03/03/2021 Document Reviewed: 03/03/2021 Elsevier Patient Education 2022 [place]. Follow Up Care 01/28/2023 14:16:26 With:Jessica Lopez CNP Address: When:6 months [facility] 04-22-2023 History of Present illness [...] week and HR fluctuating/palpitatations (refer to 03/31/23 Upower message for detailed symptoms). Continues to go [...] conjunction with Dr. Sosa. Patient seen with BOAT HOIST OPERATOR HELPER I saw and personally examined this patient with the nurse practitioner. The patient complains of increased palpitations.Both her resting and exercise heart rates have risen over the past several weeks.She is compensated on examination. We will increase the dose of carvedilol and otherwise continue the current treatment plan, as outlined in the BOAT HOIST OPERATOR HELPER note. The plan was developed mutually at the time of the clinic visit. The nurse practitioner and I spoke with the patient and provided written and verbal instructions for the patient. The note has been reviewed and I agree with the assessment and plan. Follow up arrangements were made prior to the patient being discharged from the clinic. documented in this encounter [facility] 04-22-2023 Instructions Cecilia Spencer RN - 04/22/2023 3:45 PM EDT The following instructions were given today: -Increase Coreg to 1.5 tablets (37.5mg) twice a day with food. -Follow up with Dr. Sosa in 6 months. Your after visit summary (AVS) is viewable in [facility] My Chart. Call RN if you have cardiac questions/concerns M-F 8 to 4:30 ; office # [phone], option 6, then option 2. Guidelines for home management: 1. Continue to monitor weight first thing each morning. 2. Report to the CHF CLINIC ([phone]) any significant weight change. Remember that weight [...] to have labs/tests run outside of the [facility] and you do not hear from us 1-2 days after they are performed, you must call us to ensure we received the results. Office fax # [phone]. No news does not necessarily mean that your tests are normal, it could mean we did not get the results. For questions/updates: please provide your name with spelling, date of and question or update All calls are prioritized and responses researched, if possible, prior to calls being returned. Call Scheduling for any appointment/procedure verification or changes [phone], option 7 or [facility] Heart Schedulers at [phone], option 1. documented in this encounter [facility] 04-14-2023 Miscellaneous Notes Called patient. She states [...] RN CV PHONE Name of caller : Marianna Relationship to patient : Self If not self Will need patient permission to release results or disclose health information with called documented in fyi. Patient identified by Name and Date of . ( Marianna Ramirez, 1975). Yes Number to return call [phone] Reason for Call: Patient Question/Update: Marianna is calling to say she developed an allergy to contrast and cannot have MRI W/WO. Also she would like to know if she can have it done locally. Please call. Thank you calling [facility]. You will receive a return call within 48 hours ( or 2 business days if close to the weekend). If you feel that this is an urgent issue and needs immediate attention, it is recommended that you contact your primary care provider office or proceed to your nearest Urgent Care Center of Emergency Room ED for evaluation/treatment. documented in this encounter [facility] 01-13-2023 Hospital Discharge instructions Patient Education 01/13/2023 [...] Follow these instructions at home: Medicines Take aiov-qvj-zgapygi and prescription medicines only as told by your health care provider. If you were prescribed an antibiotic medicine, take it as told by your health care provider. Do not stop taking the antibiotic even if you start to feel better. Eating and drinking Make any diet changes as told by your health care provider. Work with a diet and director of food and nutrition (dietitian) to create an eating plan that [...] provider. Document Revised: 04/12/2021 Document Reviewed: 04/12/2021 [employer] Patient Education 2022 [employer]. Follow Up Care 01/07/2023 14:24:39 With:Jessica Lopez CNP Address: When:3 months [facility] 12-30-2022 Note [id number] [facility] 12-28-2022 Evaluation + Plan note Extrac vladimir from: Title:CSB post op Author:Frank Tovar MD Date:12/28/22 Plan Transfer/Discharge: Transfer/Discharge Discharge when meets criteria ( To home ). Extracted from: Title:AGNESB GA Author:Frank Tovar MD Date:12/28/22 Plan [place] [employer] Anesthesiologists (ASA) physical status classification: Class II. Anesthetic Preoperative Plan: Anesthesia General. [facility]04-24-2023 Hospital Discharge instructions Patient Education 12/28/2022 [...] including vitamins, herbs, eye drops, creams, and yiot-rim-jorctrg medicines. Any problems you or family members [...] provider tells you to take them. ?Taking fbhe-lsc-xtukpue medicines, vitamins, herbs, and supplements. Follow instructions [...] home. Follow these instructions at home: Take mbcz-iaf-hydddcz and prescription medicines only as told by [...] provider. Document Revised: 01/08/2021 Document Reviewed: 01/08/2021 [employer] Patient Education 2022 [employer]. 12/28/2022 10:55:03 Endoscopy, Care After Procedure [facility] Endoscopy Care After Procedure Please read the instructions outlined below and refer to this sheet in the next few weeks. These discharge instructions provide you with general information on [facility] Your doctor may also give you specific [...] Document Re-Released: 02/14/2007 ExitCare Patient Information 2009 [employer]. Follow Up Care 12/21/2022 13:31:10 With:Petty AMBROSE Address: [address] [place] [address] [facility] (1) When:1 to 2 weeks Comments:Call for any problems. [facility]04-17-2023 Hospital Discharge instructions Patient Education 12/21/2022 [...] per serving. Talk with a diet and director of food and nutrition (dietitian) if you have questions about specific [...] Bulgur wheat. Millet. Quinoa. Bran muffins. Popcorn. [place] wafer crackers. Meats and other proteins [place], kidney, and aparicio beans. Soybeans. Split peas. [...] Cream cheese. Sour cream. Fats and oils [place]. Beverages Soft drinks. Other foods Cakes and [...] 08/23/2006 Document Revised: 06/27/2018 Document Reviewed: 06/27/2018 [employer] Patient Education 2020 [employer]. Follow Up Care 12/17/2022 13:25:02 With:Jessica Lopez CNP Address: When:1 month [facility] [id number] Telephone encounter Note* Telephone Encounter - REINA Erickson - 11/12/2022 8:39 AM EST Send Upower message to Marianna for update, K a little low at 3.5. [facility]03-09-2023 Miscellaneous Notes* Telephone Encounter - REINA Erickson - 11/12/2022 8:39 AM EST Send Upower message to Marianna for update, K a little low at 3.5. * Telephone Encounter - Kia Colin RN - 11/06/2022 3:12 PM EST 11/05/22 faxed lab results from [facility] entered and copy sent to [facility]. Fwd to Dr Sosa and NP. [facility] encounter Note* Telephone Encounter - Kia Colin RN - 11/06/2022 3:12 PM EST 11/05/22 faxed lab results from [facility] entered and copy sent to [facility]. Fwd to Dr Sosa and HFNP. [facility]01-26-2023 History of Present illness Narrative* Justyna Heller, GENERALIST-RN PRACTITIONER - 10/01/2022 2:45 PM EST History of [...] a little bit. Really enjoyed going to [place] [employer] for a trip in a RV. On [...] conjunction with Dr. Sosa. [facility] Instructions* Patient Instructions* Janine Fu RN - [...] M-F 8 to 4:30 ; office # [phone], option 6, then option 2. Guidelines for home management: 1. Continue to monitor weight first thing each morning. 2. Report to the CHF CLINIC ([phone]) any significant weight change. Remember that weight [...] to have labs/tests run outside of the [facility] and you do not hear from us1-2 days after they are performed, you must call us to ensure we received the results. Office fax #[phone]. No news does not necessarily mean that your tests are normal, it could mean we did not get the results. For questions/updates: please provide your name with spelling, date of and question or update All calls are prioritized and responses researched, if possible, prior to calls being returned. Call Scheduling for any appointment/procedure verification or changes [phone], option 7 or [facility] at [phone], option 1. [facility] note * Encounter Date Diagnosis Assessment [...] understanding and is agreeable with treatment plan [facility] Other 07-14-2022 Instructions* Patient Instructions* Janine Fu RN - [...] M-F 8 to 4:30 ; office # [phone], option 6, then option 2. Guidelines for home management: 1. Continue to monitor weight first thing each morning. 2. Report to the CHF CLINIC ([phone]) any significant weight change. Remember that weight [...] to have labs/tests run outside of the [facility] and you do not hear from us1-2 days after they are performed, you must call us to ensure we received the results. Office fax #[phone]. No news does not necessarily mean that your tests are normal, it could mean we did not get the results. For questions/updates: please provide your name with spelling, date of and question or update All calls are prioritized and responses researched, if possible, prior to calls being returned. Call Scheduling for any appointment/procedure verification or changes [phone], option 7 or [facility] at [phone], option 1. [facility] History of Present illness Narrative* Justyna Heller, GENERALIST-RN PRACTITIONER - 03/19/2022 3:15 PM EDT History of [...] scale back a little bit. Going to [place] [employer] for a trip in a RV. Stillhas [...] seen in conjunction with Dr. Sosa. * Trpi Sosa MD - 03/19/2022 3:15 PM EDT Patient seen with BOAT HOIST OPERATOR HELPER I saw and personally examined this patient [...] thecurrent treatment plan, as outlined in the BOAT HOIST OPERATOR HELPER note. The plan was developed mutually at the time of the clinic visit. The nurse practitioner and I spoke with the patient and provided written and verbal instructions for the patient. The note has been reviewed and I agree with the assessment and plan. Follow up arrangements were made prior to the patient being discharged from the clinic. [facility] Evaluation note * Encounter Date Diagnosis Assessment [...] Follow up with primary care provider or document photographer if no improvement of symptoms. Viola [employer] Other Evaluation + Plan note Future Appointments Appointment Date:12/28/2022 10:35:00 AM Scheduled Provider: Location:[facility] Services Appointment Type:Surgery FT Diagnostic Tests Pending * Enteric Panel by PCR 12/21/22 * Clostridium Difficile PCR 12/21/22 * Fecal WBC Lactoferrin 12/21/22 * O & P Exam, Routine 12/21/22 * Giardia lamblia, Direct Detection EIA 12/21/22 * CBC w/ Auto Diff 12/21/22 * Comprehensive Metabolic Panel 12/21/22 [facility] Evaluation + Plan note Future Appointments Appointment Date:11/04/2023 12:20:00 PM Scheduled Provider:Jessica Lopez CNP Location[facility] Appointment Type:[facility] Follow Up [facility] Evaluxfbla noteNo assessment information available [facility] Work Phone: evaluznsfv note* 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 Chronic systolic heart failure [facility] note[facility] InformationNort [employer] Other evaluation note* 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 Palpitations [facility] Diagnosis Other cardiomyopathy- Primary [facility] Diagnosis 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, unspecified site [facility] Diagnosis Other cardiomyopathy- Primary Palpitations [facility] 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 [facility]* Diagnosis Cardiac microvascular disease- Primary Other and unspecified angina pectoris [facility]* Diagnosis Onset Date Resolution Status Arthralgia acute Family history of lupus acut e Lumbar pain acute [facility] Work Phone: Evaluation note* Diagnosis Onset Date Resolution Status Swelling, mass, or lump in head and neck acute [facility] Work Phone: History general Narrative - Reported* Type Description Date Medical History cardiomyopathy [facility] Other Hospital course Narrative No data available for this section [facility] Hospital Discharge instructions No data available for this section [facility] Hospital Discharge instructionsAmbulatory Orders* Referral to Pain Management Time Frame: 12/10/23, Location: None Selected * Referral to Rheumatology Time Frame: 12/10/23, Location: None Selected [facility] Work Phone: Progress note No data available for this section [facility] Reason for Referral Specialty Diagnoses / Procedures Referred By Fariha valle Referred To Contact MR IMAGING Diagnoses Vascular malformation Congenital vascular anomaly Procedures MRI BRAIN WO IVCON MRI BRAIN BRAIN STEM W/O CONTRAST MATERIAL Jyoti Aguilera APRN.RN PRACTITIONER [address] [address] [place] [id number] Referral ID Status Reason Start Date Expiration Date Visits Requested Visits Authorized [id number] Pending Review Auto-Generat ed Referral 10/25/2023 11/23/2024 1 1 Specialty Diagnoses / Procedures Referred By Contac t Referred To Contact MR IMAGING Diagnoses Developmental venous anomaly Procedures MRI BRAIN WO/W IVCON MRI BRAIN BRAIN STEM W/O W/CONTRAST MATERIAL Ruth Ramirez PA-C [address] [place] [address] Mr Imaging Referral ID Status Reason Start Date Expiration Date Visits Requested Visits Authorized [id number] Pending Review Auto-Generat ed Referral 06/06/2023 12/14/2023 1 1 Specialty Diagnoses / Procedures Referred By Fariha t Referred To Contact Diagnoses Cardiac microvascular disease Chronic systolic heart failure Procedures ECHOCARDIOGRAM [place] ECHO HEART XTHORACIC,COMPLETE W DOPPLER Justyna Heller, GENERALIST-RN PRACTITIONER [address] [place] [address] Referral ID Status Reason Start Date Expiration Date Visits Re quested Visits Authorized [id number] Closed 11/27/2021 12/22/2022 1 1 Summary Purpose Family History Relationship Condition Age at Onset Recorded Date/T adryan father Unknown Advance Directives Advance Directive Response Recorded Date/ Time Advance Directives No March 16 12:17pm Chief Complaint and Reason for Visit Chief Complaint lower back pain , ab dominal pain Reason for Visit Arthralgia Family history of lupus Lumbar pain Chief Complaint lump on neck Reason for Visit Swelling, mass, or l ump in head and neck Additional Source Comments Care Teams (unrecognized sec tion and content) Team Status: Inactive Member Role Status Dates GENEVIEVE Poole Attending Provider Active Shipping/Receiving Clerk Relationship Specialty Start Date End Date Cj Lazo MD [address] [id number] PCP - General 02/26/11 Shipping/Receiving Clerk Relationship Specialty Start Date End Date Cj Lazo MD [address] [id number] PCP - General 02/26/11 Shipping/Receiving Clerk Relationship Specialty Start Date End Date Cj Lazo MD [address] [id number] PCP - General 02/26/11 Shipping/Receiving Clerk Relationship Specialty Start Date End Date Cj Lazo MD [address] [facility] [place] [address] PCP - General Family Medicine 01/13/16 Shipping/Receiving Clerk Relationship Specialty Start Date End Date Cj Lazo MD [address] [facility] [place] [phone] PCP - General Family Medicine 01/13/16 Shipping/Receiving Clerk Relationship Specialty Start Date End Date Cj Lazo MD [address] [place] [facility] [place] [address] PCP - General 02/26/11 Shipping/Receiving Clerk Relationship Specialty Start Date End Date Cj Lazo MD [address] [facility] [place] [phone] PCP - General Family Medicine 01/13/16 Shipping/Receiving Clerk Relationship Specialty Start Date End Date Cj Lazo MD [address] [facility] [place] [address] PCP - General Family Medicine 01/13/16 Shipping/Receiving Clerk Relationship Specialty Start Date End Date Cj Lazo MD [address] [facility] [place] [phone] PCP - General Family Medicine 01/13/16 Shipping/Receiving Clerk Relationship Specialty Start Date End Date Cj Lazo MD [address] [place] [facility] [place] [address] PCP - General 02/26/11 Team Status: Active Member Role Status Dates Cj Lazo MD Primary Care Provider Active Team Status: Inactive Member Role Status Dates Cj Lazo MD Primary Care Provide r, Attending Provider Active Start: December 10, 2023 End: December 10, 2023 Team Status: Inactive Member Role Status Dates Cj Lazo MD Primary Care Provider Active Start: April 13, 2024 End: April 13, 2024 Deja Pack APRN [employer]AT HOIST OPERATOR HELPER-C Attending Provider Act gabriella Start: April 13, 2024 End: April 13, 2024 Goals (unrecognized section and content) Goals may be documented in a n alternate sectionNo InformationNo InformationNo Information No data available for this section No data available for this section No data available for this section No data available for this section No data available for this sectionGoals may be documented in an alternate section No data available for this sectionGoals may be documented in an alternate section REASON FOR VISIT (unrecogniz ed section and content) Specialty Diagnoses / Procedures Referred By Contmaddie t Referred To Contact Diagnoses Cardiac microvascular disease Chronic systolic heart failure Procedures ECHOCARDIOGRAM [place] ECHO HEART XTHORACIC,COMPLETE W DOPPLER Justyna Heller, GENERALIST-RN PRACTITIONER [address] [place] [address] Referral ID Status Reason Start Date Expiration Date Visits Re quested Visits Authorized [id number] Closed 11/27/2021 12/22/2022 1 1 Reason Comments Follow-up Reason Onset Date Comments Results 11/06/2022 Reason Comments Question and update Reason Comments Symptoms Reason Comments Provider Question INFORMATION SOURCE (unrecogn ized section and content) DATE CREATED AUTHOR 03/26/2022 [facility] DATE CREATED AUTHOR AUTHOR'S ORGANIZ ATION 01/01/2023 [facility] DATE CREATED AUTHOR AUTHOR'S ORGANIZ ATION 05/07/2023 [facility] DATE CREATED AUTHOR AUTHOR'S ORGANIZ ATION 10/08/2023 [facility] EPIC DATE CREATED AUTHOR AUTHOR'S ORGANIZ ATION 11/15/[address] [facility] DATE CREATED AUTHOR AUTHOR'S ORGANIZ ATION 12/21/2023 [facility] Source Comments (unrecognize d section and content) In the event this informatio n is protected by the Federal Confidentiality of Alcohol and Drug Abuse Patient Records regulations: The Federal rules restrict any use of the information to criminally investigate or prosecute any alcohol or drug abuse patient.[facility] the event this information is protected by the Federal Confidentiality of Alcohol and Drug Abuse Patient Records regulations: The Federal rules restrict any use of the information to criminally investigate or prosecute any alcohol or drug abuse patient.[facility] Campus[facility] the event this information is protected by the Federal Confidentiality of Alcohol and Drug Abuse Patient Records regulations: The Federal rules restrict any use of the information to criminally investigate or prosecute any alcohol or drug abuse patient.[facility] Campus[facility] the event this information is protected by the Federal Confidentiality of Alcohol and Drug Abuse Patient Records regulations: The Federal rules restrict any use of the information to criminally investigate or prosecute any alcohol or drug abuse patient.[facility] Campus[facility] the event this information is protected by the Federal Confidentiality of Alcohol and Drug Abuse Patient Records regulations: The Federal rules restrict any use of the information to criminally investigate or prosecute any alcohol or drug abuse patient.[facility] FOR RECORDS PERTAINING TO PATIENTS WHO ARE [...] BE BASED ON THE PRIMARY CLINICAL RECORDS. [facility] [employer] [facility]. provides no warranty or guarantee of the accuracy or completeness of information in this document.
== END 2024-04-15 08:03 | disposition home or self-care (01) ==
LOC: US 08:03
PROVIDERS: PCP Family Medicine; Visit Provider Nurse Practitioner Family
DX: R22.0 Localized swelling, mass and lump, head (principal); R22.1 Localized swelling, mass and lump, neck
CPT/HCPCS: 76536

== ENCOUNTER 2024-07-06 07:18 | Outpatient (OUT) | payer OTHER, SELFPAY ==
--- OUTSIDE RECORDS SUMMARY | 2024-07-06 07:21 | XMS_ITS | CCD ---
Author Organization [facility] Care Team Providers Care Patient Financial Services Coordinator Name Role Phone GENEVIEVE Alexander Attending Provider Cj Lazo MD Primary Care Provider Yas Garcia Unavailable Cj Lazo MD Primary Care Provider [phone] Cj Lazo MD Primary Care Provider CJ [...] VIOLET, DR CJ Rai Primary Care Unavailable IVETTE, ILANA Attending Unavailable RINKES, ILANA Admitting Unavailable ZIEBER, DR GABRIELA Mendoza Consulting Unavailable ILANA KUAMRI Consulting Unavailable MISC, DR PADRON Admitting Unavailable VIOLET, DR CJ Rai Primary Care Unavailable MISC, DR PADRON Consulting Unavailable MISC, DR PADRON Attending Unavailable MISC, DR PADRON Admitting Unavailable MISC, DR PADRON Consulting Unavailable MISC, DR PADRON Attending Unavailable LAZO, DR CJ Rai Primary Care Unavailable Cj Lazo MD Primary Care Provider Viral Smith Attending Unavaila della Lopez, Jessica Rojas Attending Unavailable SALAM, Petty Admitting Unavailable SALAM, Petty Attending Unavailable SALAM, Dove Referring Unavailable John, Jessica A Attending Unavailable John, Jessica A Attending Unavailable John, Jessica A Attending Unavailable MD Cj Lazo Primary Care Provider [phone] DO Ever Woodward Attending Provider [phone] Ever Woodward Attending Unavailable Cj Lazo Primary Care Unavailable Crissy, Ever Admitting Unavailable Crissy, Ever Attending Unavailable Cj Lazo Primary Care Unavailable Crissy, Ever Admitting Unavailable ILANA KUMARI Attending Unavailable CRISSY, EVER Russell Attending Unavailable CRISSY, EVER Russell Attending Unavailable DEJA PACK Referring Unavailab bell WOODWARD, EVER Russell Attending Unavailable DEJA PACK Referring Unavailab Cj Chase MD Primary Care Provider Ever Woodward DO Unavailable [phone] Sirena BUCK, Deja Rojas Unavailable CJ LAZO Primary Care Unavailable CJ LAZO Referring Unavailable TRIP SOSA Attending Unavailable CHALJUSTYNA PRADO Referring Unavailable CJ LAZO Primary Care Unavailable CHALJUSTYNA PRADO Attending Unavailable CJ LAZO Primary Care Unavailable CJ LAZO Referring Unavailable SHEILATRIP Attending Unavailable VIKKI SORTO Attending Unavailable CJ LAZO Primary Care Unavailable CHALTON JUSTYNA B Referring Unavailable Allergies Allergy Classification Reported Allergen(s) Allergy Type Date of Onset Reaction(s) Facility (20 sources) fentaNYL; Translations: [fentanyl] Drug Allergy 9 Rash [facility] (20 sources) Midazolam; Translations: [midazolam] Drug Allergy 9 Rash [employer] Other (8 sources) mri contrast Propensity to adverse reactions 4 Unknown, Hives, Anaphylaxis [facility] (4 sources) gadobutrol Drug Allergy 9 Rash, Itchy Throat, Chills, Dry Mouth [facility] (7 sources) Contrast media; Translations: [contrast media (gadolinium-bas ed)] Drug allergy Rash, Cough [facility] (1 source) fentaNYL Drug Allergy [facility] (1 source) Gadolinium Drug Allergy [facility] (2 sources) Midazolam; Translations: [Versed] Drug Allergy [facility] (9 sources) Gadolinium-Cont aining Contrast Media Drug Allergy 9 Anaphylaxis, Rash [facility] (4 sources) gadobutrol Drug Allergy 9 Rash, Itchy Throat, Chills, Dry Mouth [facility] (8 sources) Iodinated Contrast Media Allergy to substance 4 Comment:MRI dye, Anaphylaxis [facility] (2 sources) Gadolinium-Cont aining Contrast Medi Allergy to substance 4 Anaphylaxis [facility] (2 sources) Iodinated Diagnostic Agents Propensity to adverse reactions to drug 4 [facility] Medications Current Medications Medication Drug Class(es) Dates Sig (Normalized) Sig (Original) acetaminophen 325 mg / HYDROcodone bitartrate 5 mg oral tablet (4 sources) Opioid Agonist Start: 05-24-2024 HYDROcodone-acetam inophen ([place]) 5-325 MG tablet 1 tablet 05/24/2024 Active Start: 05-24-2024 take 1 tablet by alfredo th every six hours Hydrocodone-Acetaminophen Active 1 TAB P O Every 6 hours 10 7 May 24, 2024 amLODIPine 2.5 mg oral tablet (7 sources) Dihydropyridine Calcium Channel Nathen Start: 01-06-2024 take 1 tablet by mouth once daily amLODIPine (Norvasc) 2.5 MG tablet Indications: Cardiac microvascular disease , Palpitations , Atypical chest pain Take 1 tablet by mouth daily. 90 tablet 3 01/06/2024 Active busPIRone hydrochloride 10 mg oral tablet (1 source) Start: 12-20-2023 take 1 tablet by mouth three times daily busPIRone 10 mg Tab 10 mg = 1 tab(s), Oral, TID, # 90 tab(s), Refills(s) 6, Pharmacy: [id number], 157, cm, 12/20/23 11:01:00 EDT, Height/Length Dosing, 70, kg, 12/20/23 11:01:00 EDT, Weight Dosing Start Date: 12/20/23 Status: Ordered carvedilol 25 mg oral tablet (20 sources) alpha-Adrenergic Nathen, beta-Adrenergic Nathen Start: 12-09-2023 take 1 tablet by mouth twice daily Carvedilol (Coreg) 25 mg tablet Active 62.5 MG PO Twice daily December 09, 2023 12:00am [...] meals. cetirizine hydrochloride 10 mg oral tablet (20 sources) Histamine-1 Receptor Antagonist Start: 10-29-2017 End: 04-22-2023 Zyrtec 10 mg, Oral, PRN Allergy symptoms, Refills(s) 0 Start Date: 10/29/17 Status: Ordered CETIRIZINE HCL ( ZYRTEC ORAL) Take by mouth. 0 Active Comment on above: Take by mouth. metoprolol tartrate 50 mg oral tablet (2 sources) beta-Adrenergic Nathen Start: 06-21-20 Metoprolol 50 MG tab regular release Take one tablet by mouth, 1-[address] your cardiac CT time 1 tablet 06/21/2024 Active nitrofurantoin, macrocrystals 25 mg / nitrofurantoin, monohydrate [...] 0 Start Date: 11/26/20 Status: Ordered Benefiber (17 sources) Start: 12-21-2022 Benefiber Oral , Daily, Refill(s) 0, Constipation Start Date: 12/21/22 Status: Ordered Start: 12-21-2022 Benefiber Refi ll(s) 0 Start Date: 12/21/22 Status: Ordered Wheat Dextrin (B enefiber) powder as directed Orally Active take 1 dose by mouth once [...] daily. 90 capsule 3 10/01/2022 04/22/2023 Discontinued iohexol (OMNIPAQUE) 350 MG/ML injection 1-171 mL (1 source) Start: 06-22-2024 End: 06-22-2024 1-171 mL, Intravenous, ONCE, 1 dose, On Rosana 06/22/24 at 1130, Extravasation Risk, CT Procedure iv contrast (will be provided with radiology [...] guidelines link lisinopril 5 mg oral tablet (20 sources) Angiotensin Converting Enzyme Inhibitor Start: 10-29-2017 End: 12-10-2023 take 1 tablet by mouth once daily Lisinopril Discontinued 1 TAB PO Daily December 09, 2023 12:00am December 10, 2023 10:32am FreeTextSi tablet Orally Once a day; Note: Source Status: Taking; Provider: Jose Sorenson ( ) Comment on above: Take 5 mg by mouth o nce daily. nitroglycerin 0.4 mg sublingual tablet (1 source) Nitrate Vasodilator Start: 06-22-2024 End: 06-22-2024 0.4 mg, Sublingual, ONCE, 1 dose, On Rosana 06/22/24 at 1130, Maximum of three consecutive doses in 15 minutes. Do not chew, crush, or swallow sublingual tablet. Place under tongue and allow to dissolve. Alternately, may be placed in the buccal pouch., CT Procedure omeprazole 40 mg delayed release oral capsule (5 sources) Proton Pump Inhibitor take 1 capsule by mouth once daily Omeprazole 40 mg capsule Take 40 mg by mouth once daily. 0 Active Comment on above: Take 40 mg by mouth once daily. predniSONE 50 mg oral tablet (2 sources) Start: 06-20-2024 End: 06-22-2024 predniSONE 50 MG tablet Prednisone 50 mg by mouth 13 hr, 7 hr, and 1 hr prior to contrast 3 tablet 06/20/2024 06/22/2024 Discontinued 20 ml sodium chloride 9 mg/ml injection (1 source) Start: 06-22-2024 End: 06-22-2024 1-100 mL, Intravenous, ONCE NEEDED, 1 dose, Starting on Rosana 06/22/24 at 1123, Until Rosana 06/22/24 at 1235, Flush, CT Procedure Problems Active Problems Problem Classification Problem Date Documented Da te Episodic/Chronic Cancer of thyroid (2 sources) Follicular thyroid carcinoma; Translations: [Malignant neoplasm of thyroid gland] 06-08-2024 Chronic Cardiac and circulatory congenital anomalies (3 sources) Venous malformation; Translations: [Other malformations of cerebral vessels] Chronic Cardiac dysrhythmias (14 sources) Palpitations; Translations: [Palpitations] Onset: 11-27-2022 Resolved: 05-04-2024 07-24-2008 Episodic Conditions associated with dizziness or vertigo (11 sources) Lightheadedness; Translations: [Dizziness and giddiness] Onset: 05-04-2024 Resolved: 05-04-2024 07-24-2008 Episodic Congestive heart failure; nonhypertensive (9 sources) Chronic systolic heart failure; Translations: [Chronic systolic (congestive) heart failure] Onset: 04-06-2013 Chronic Coronary atherosclerosis and other heart disease (10 sources) Heart disease; Translations: [Other forms of chronic ischemic heart disease] Onset: 11-27-2022 Chronic Genitourinary symptoms and ill-defined conditions (5 sources) Dysuria; Translations: [Dysuria] Onset: 03-12-2022 Resolved: 03-22-2022 Episodic Nonspecific chest pain (7 sources) Other chest pain; Translations: [Atypical chest pain] Onset: 08-14-2022 Episodic Other gastrointestinal disorders (11 sources) Irritable bowel syndrome; Translations: [Mixed irritable bowel syndrome] Onset: 03-03-2019 Resolved: 05-04-2024 03-03-2019 Chronic Other gastrointestinal disorders (10 sources) Dysphagia; Translations: [Dysphagia, unspecified] Onset: 12-21-2022 Episodic Other gastrointestinal disorders (4 sources) Diarrhea, unspecified; Translations: [DIARRHEA UNSPECIFIED] Onset: 12-22-2022 Episodic Other gastrointestinal disorders (1 source) Swollen abdomen; Translations: [Abdominal distension (gaseous)] Onset: 12-17-2023 Episodic Other nervous system disorders (5 sources) Tremor, unspecified; Translations: [TREMOR UNSPECIFIED] Onset: 08-20-2022 Episodic Other nervous system disorders (1 source) Other acute postprocedural pain; Translations: [Other acute postprocedural pain] Onset: 05-24-2024 Episodic Other non-traumatic joint disorders (1 source) Pain in unspecified joint; Translations: [Pain in joint, site unspecified] 12-10-2023 Episodic Other skin disorders (4 sources) Finding of head and neck region; Translations: [Localized swelling, mass and lump, head] 04-13-2024 Episodic Other skin disorders (4 sources) Localized swelling, mass and lump, head; Translations: [Swelling, mass, or lump in head and neck] 04-13-2024 Episodic Other upper respiratory disease (3 sources) Chronic pharyngitis; Translations: [Chronic pharyngitis] Onset: 05-04-2024 Resolved: 05-04-2024 05-04-2024 Chronic Residual codes; unclassified (11 sources) Insomnia; Translations: [Insomnia, unspecified] Onset: 05-04-2024 Resolved: 05-04-2024 07-24-2008 Episodic Unclassified (6 sources) Finding of sensation of abdomen 12-21-2022 Unclassified (6 sources) Family history of lupus erythematosus; Translations: [Family history of lupus] 12-10-2023 Unclassified (2 sources) New Patient; Translations: [New Patient] Onset: 06-27-2024 Unclassified (1 source) Chronic coronary microvascular dysfunction; Translations: [Chronic coronary microvascular dysfunction] Onset: 06-22-2024 Past or Other Problems Problem Classification Problem Date Documented Da te Episodic/Chronic Abdominal pain (20 sources) Right upper quadrant pain; Translations: [Right upper quadrant pain] Onset: 3 Resolved: 4 Episodic Esophageal disorders (15 sources) Gastroesophageal reflux disease without esophagitis; Translations: [Gastro-esophageal reflux disease without esophagitis] Onset: 3 Resolved: 4 Chronic Headache; including migraine (3 sources) Menstrual migraine; Translations: [Menstrual migraine, not intractable, without status migrainosus] Onset: 4 Resolved: 4 05-04-2024 Chronic Malaise and fatigue (1 source) Other fatigue; Translations: [OTHER FATIGUE] Onset: 2 Episodic Menstrual disorders (3 sources) Disorder of menstruation; Translations: [Irregular menstruation, unspecified] Onset: 4 Resolved: 4 05-04-2024 Chronic Miscellaneous mental health disorders (3 sources) Bodily distress disorder; Translations: [Other somatoform disorders] Onset: 4 Resolved: 4 05-04-2024 Chronic Nausea and vomiting (8 sources) Nausea; Translations: [Nausea] Onset: 3 Resolved: 4 Episodic Other complications of ; puerperium affecting management of mother (8 sources) cardiomyopathy; 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] Onset: 8 07-26-2008 Episodic Other connective tissue disease (8 sources) Muscle pain; Translations: [Myalgia, unspecified site] Onset: 6 Resolved: 4 05-21-2016 Episodic Other connective tissue disease (8 sources) Fibromyalgia; Translations: [Fibromyalgia] Onset: 6 Resolved: 4 05-21-2016 Episodic Other disorders of stomach and duodenum (11 sources) Intestinal metaplasia of gastric cardia; Translations: [Intestinal metaplasia of gastric cardia] Onset: 9 Resolved: 4 07-12-2019 Episodic Other ear and sense organ disorders (3 sources) Bilateral hearing loss; Translations: [Unspecified hearing loss, bilateral] Onset: 4 Resolved: 4 05-04-2024 Chronic Other female genital disorders (3 sources) Abnormal uterine bleeding; Translations: [Abnormal uterine and vaginal bleeding, unspecified] Onset: 4 Resolved: 4 05-04-2024 Chronic Other gastrointestinal disorders (9 sources) Irritable bowel syndrome characterized by alternating bowel habit; Translations: [Mixed irritable bowel syndrome] Onset: 3 Resolved: 4 Chronic Other gastrointestinal disorders (11 sources) Esophageal dysphagia; Translations: [Other dysphagia] Onset: 9 Resolved: 4 03-03-2019 Episodic Other gastrointestinal disorders (11 sources) Diarrhea; Translations: [Diarrhea, unspecified] Onset: 3 Resolved: 4 Episodic Other gastrointestinal disorders (7 sources) Heartburn; Translations: [Heartburn] Onset: 3 Resolved: 4 Episodic Other gastrointestinal disorders (4 sources) Abdominal bloating; Translations: [Abdominal distension (gaseous)] Onset: 4 Resolved: 4 12-17-2023 Episodic Other lower respiratory disease (8 sources) Finding of respiration; Translations: [Other forms of dyspnea] Onset: 3 04-06-2013 Episodic Other nervous system disorders (8 sources) Numbness and tingling sensation of skin; Translations: [Anesthesia of skin] Onset: 6 Resolved: 4 05-21-2016 Episodic Other nervous system disorders (4 sources) Postoperative pain ; Translations: [Other acute postprocedural pain] Onset: 4 Resolved: 4 05-24-2024 Episodic Other non-traumatic joint disorders (8 sources) Multiple joint pain; Translations: [Pain in unspecified joint] Onset: 6 Resolved: 4 05-21-2016 Episodic Other non-traumatic joint disorders (8 sources) Multiple stiff joints; Translations: [Stiffness of unspecified joint, not elsewhere classified] Onset: 6 Resolved: 4 05-21-2016 Episodic Other non-traumatic joint disorders (8 sources) Joint pain; Translations: [Pain in unspecified joint] Onset: 4 Resolved: 4 12-10-2023 Episodic Other screening for suspected conditions (not mental disorders or infectious disease) (4 sources) Encounter for screening mammogram for malignant neoplasm of breast; Translations: [ENC SCR MAMMO MALIG NEOPLASM BREAST] Onset: 3 Episodic Other skin disorders (3 sources) Finding of head region; Translations: [Localized swelling, mass and lump, head] Onset: 4 Resolved: 4 05-04-2024 Episodic Glendy-; endo-; and myocarditis; cardiomyopathy (except that caused by tuberculosis or sexually transmitted disease) (9 sources) Cardiomyopathy; Translations: [Other cardiomyopathies] Onset: 3 Resolved: 4 Chronic Residual codes; unclassified (8 sources) FH: Rheumatoid arthritis; Translations: [Family history of arthritis] Onset: 6 Resolved: 4 05-21-2016 Episodic Residual codes; unclassified (8 sources) Family history of lupus erythematosus; Translations: [Family history of diseases of the skin and subcutaneous tissue] Onset: 6 Resolved: 4 05-21-2016 Episodic Residual codes; unclassified (1 source) Family history of malignant neoplasm of trachea, bronchus and lung; Translations: [FAM HX MALIG NEOPLSM TRACH BRON LNG] Onset: 3 Episodic Residual codes; unclassified (1 source) Family history of malignant neoplasm of other organs or systems; Translations: [FAM HX MALIG NEOPLASM OTH ORGN/SYS] Onset: 3 Episodic Spondylosis; intervertebral disc disorders; other back problems (9 sources) Low back pain; Translations: [Lumbar back pain] Onset: 4 Resolved: 4 12-10-2023 Episodic Thyroid disorders (6 sources) Thyroid nodule; Translations: [Nontoxic single thyroid nodule] Onset: 4 Resolved: 4 04-19-2024 Chronic Unclassified (1 source) Chronic coronary microvascular dysfunction; Translations: [Chronic coronary microvascular dysfunction] Onset: 4 Urinary tract infections (1 source) Acute cystitis with hematuria Onset: 2 Resolved: 2 Episodic Results Test Name Value Interpretation Reference Range Facility CT ANGIO CARDIAC WITH SIMEON RY ARTERIESon 06-22-2024 CT ANGIO CARDIAC WITH CORONARY ARTERIES [facility] CT Report Name: MARIANNA RAMIREZ : 1975 Scan Date: 2024-06-22 12:26:45 Electronically signed by Jatinder Phipps 15:14:41 VITALS ====== HEIGHT: 62.00 in (157.48 cm) WEIGHT: 145.99 lbs (66.22 kgs) BSA: 1.67 m^2 BMI: 27 kg/m^2 BP: 125 / 71 mmHg BASELINE HR: 85 BPM FINAL ====== 49 yo F with CP who is referred for CT coronary angiography for evaluation of CAD. 1. Normal origin and course of coronary arteries. 2. No coronary calcification. Total Agatston CAC score of 0. 3. Normal coronaries without any evidence of significant atherosclerotic disease. 4. Additional incidental findings as noted below. == STUDY QUALITY: Study quality is adequate. Misalignment(s) present due to suboptimal heart rate control. CALCIUM SCORING: Total coronary artery calcium score 0. DOMINANCE: Left dominant coronary artery system. LM: The LM is normal. LAD: The LAD is normal. D1: The first diagonal is normal. D2: The second diagonal is normal. LCX: The LCx is normal. OM1: The first obtuse marginal is normal. OM2: The second obtuse marginal is normal. LEFT PDA: The left PDA is normal. LEFT PLB: The left posterolateral branch is normal. RCA: The RCA is normal. Small nondominant vessel. OTHER FINDINGS: Cardiac Structure: -\X09\Left Ventricle: Appears normal in size. LV dimension is 45 mm at mid diastole. The posterior wall measures 9 mm. There is no evidence of ventricular septal defect. There is no myocardial wall thinning or calcific changes suggestive of prior myocardial infarction. -\X09\Right Ventricle: Appears normal in size by gross visual estimation. No evidence of RV filling defect or thrombus. -\X09\Left Atrium: Normal in size and free of any filling defect. Normal pulmonary vein anatomy. The LA appendage (JOHNNA) is fully opacified with contrast without evidence of JOHNNA thrombus. -\X09\Right Atrium: Appears normal in size by gross visual estimation. -\X09\Interatrial Septum: Normal without evidence of atrial septal defect or large PFO. -\X09\Aortic Valve: No calcification. -\X09\Mitral Valve: No annular calcification. -\X09\Pericardium: No thickening, effusion or calcification. Major Vessels:\X09\ -\X09\Aortic Root: Normal in size measuring 25 mm (R cusp-commissure). -\X09\Ascending Aorta: Measures 25 x 25 mm at the level of the PA bifurcation. No calcific atherosclerosis. -\X09\Thoracic Descending Aorta: No calcific atherosclerosis. -\X09\Main Pulmonary Artery: Appears normal and measures 22 mm in diameter. No obvious filling defect is seen in the pulmonary trunk or in the right and left main pulmonary arteries. Extra-Cardiac Findings (Limited Field of View): -\X09\Chest Wall/Bone: Mild degenerative changes in the thoracic spine. -\X09\Mediastinum/Hi la: R hilar and mediastinal calcific adenopathy. -\X09\Pleural Spaces: No thickening, effusion or pneumothorax -\X09\Lung Parenchyma: No evidence of significant lung disease, nodules or masses CALCIUM SCORING TABLE ====== . . Number of Lesions Pattern of Calcium Volume Total Score +-------+ --------+ ---------+--------+- + LM 0 LAD 0 LCx 0 RCA 0 Ramus '-------+ --------+ ---------+--------+- ' SCAN INFO ====== TEST TYPE: Calcium score, Coronary CT Angiography SCANNER REGISTERED PHARMACY TECHNICIAN: [employer] SCANNER MODEL: The [employer] DOSE REDUCTION ALGORITHM: Helical with dose modulation SCAN COVERAGE ZONE: Coronary Arteries EKG GATED: Yes GENERAL -------- CONTRAST AGENT ------ CONTRAST AGENT USED?: Yes TYPE: Omnipaque 350 DOSE: 80 ml RATE: 6 ml/s ROUTE: IV BOLUS TECHNIQUE: Biphasic SCAN DELAY TIME METHOD: Bolus Track CT CONTRAST REACTION: None SEDATION ------ SEDATION USED?: No MEDICATION ADMINISTERED DURING SCAN ------ TYPE: Nitroglycerin, sublingual, B-Blockers, Ivabradine NITROGLYCERIN, TOTAL DOSE: 0.4 mg B-NATHEN TYPE: Oral B-NATHEN NAME, ORAL: Metoprolol tartrate B-BLOCKERS, ORAL DOSE: 50 mg RADIATION DOSE (more content not included)... Normal [facility] CT Report Name: MARIANNA RAMIREZ : 1975 Scan Date: 2024-06-22 12:26:45 Electronically signed by Jatinder Phipps 15:14:41 VITALS ====== HEIGHT: 62.00 in (157.48 cm) WEIGHT: 145.99 lbs (66.22 kgs) BSA: 1.67 m^2 BMI: 27 kg/m^2 BP: 125 / 71 mmHg BASELINE HR: 85 BPM FINAL IMPRESSION ====== 49 yo F with CP who is referred for CT coronary angiography for evaluation of CAD. 1. Normal origin and course of coronary arteries. 2. No coronary calcification. Total Agatston CAC score of 0. 3. Normal coronaries without any evidence of significant atherosclerotic disease. 4. Additional incidental findings as noted below. == STUDY QUALITY: Study quality is adequate. Misalignment(s) present due to suboptimal heart rate control. CALCIUM SCORING: Total coronary artery calcium score 0. DOMINANCE: Left dominant coronary artery system. LM: The LM is normal. LAD: The LAD is normal. D1: The first diagonal is normal. D2: The second diagonal is normal. LCX: The LCx is normal. OM1: The first obtuse marginal is normal. OM2: The second obtuse marginal is normal. LEFT PDA: The left PDA is normal. LEFT PLB: The left posterolateral branch is normal. RCA: The RCA is normal. Small nondominant vessel. OTHER FINDINGS: Cardiac Structure: - Left Ventricle: Appears normal in size. LV dimension is 45 mm at mid diastole. The posterior wall measures 9 mm. There is no evidence of ventricular septal defect. There is no myocardial wall thinning or calcific changes suggestive of prior myocardial infarction. - Right Ventricle: Appears normal in size by gross visual estimation. No evidence of RV filling defect or thrombus. - Left Atrium: Normal in size and free of any filling defect. Normal pulmonary vein anatomy. The LA appendage (JOHNNA) is fully opacified with contrast without evidence of JOHNNA thrombus. - Right Atrium: Appears normal in size by gross visual estimation. - Interatrial Septum: Normal without evidence of atrial septal defect or large PFO. - Aortic Valve: No calcification. - Mitral Valve: No annular calcification. - Pericardium: No thickening, effusion or calcification. Major Vessels: - Aortic Root: Normal in size measuring 25 mm (R cusp-commissure). - Ascending Aorta: Measures 25 x 25 mm at the level of the PA bifurcation. No calcific atherosclerosis. - Thoracic Descending Aorta: No calcific atherosclerosis. - Main Pulmonary Artery: Appears normal and measures 22 mm in diameter. No obvious filling defect is seen in the pulmonary trunk or in the right and left main pulmonary arteries. Extra-Cardiac Findings (Limited Field of View): - Chest Wall/Bone: Mild degenerative changes in the thoracic spine. - Mediastinum/Jennifer: R hilar and mediastinal calcific adenopathy. - Pleural Spaces: No thickening, effusion or pneumothorax - Lung Parenchyma: No evidence of significant lung disease, nodules or masses CALCIUM SCORING TABLE ====== . . Number of Lesions Pattern of Calcium Volume Total Score +-------+ --------+ ---------+--------+- + LM 0 LAD 0 LCx 0 RCA 0 Ramus '-------+ --------+ ---------+--------+- ' SCAN INFO ====== TEST TYPE: Calcium score, Coronary CT Angiography SCANNER REGISTERED PHARMACY TECHNICIAN: [employer] SCANNER MODEL: [employer] Alpha DOSE REDUCTION ALGORITHM: Helical with dose modulation SCAN COVERAGE ZONE: Coronary Arteries EKG GATED: Yes GENERAL -------- CONTRAST AGENT ------ CONTRAST AGENT USED? (more content not included)... CARDIOLOGY Jatinder Phipps MD - 06/22/2024 [facility] CT Report Name: MARIANNA RAMIREZ : 1975 Scan Date: 2024-06-22 12:26:45 Electronically signed by Jatinder Phipps 15:14:41 VITALS HEIGHT: 62.00 in (157.48 cm) WEIGHT: 145.99 lbs (66.22 kgs) BSA: 1.67 m^2 BMI: 27 kg/m^2 BP: 125 / 71 mmHg BASELINE HR: 85 BPM FINAL IMPRESSION 49 yo F with CP who is referred for CT coronary angiography for evaluation of CAD. 1. Normal origin and course of coronary arteries. 2. No coronary calcification. Total Agatston CAC score of 0. 3. Normal coronaries without any evidence of significant atherosclerotic disease. 4. Additional incidental findings as noted below. ======= STUDY QUALITY: Study quality is adequate. Misalignment(s) present due to suboptimal heart rate control. CALCIUM SCORING: Total coronary artery calcium score 0. DOMINANCE: Left dominant coronary artery system. LM: The LM is normal. LAD: The LAD is normal. D1: The first diagonal is normal. D2: The second diagonal is normal. LCX: The LCx is normal. OM1: The first obtuse marginal is normal. OM2: The second obtuse marginal is normal. LEFT PDA: The left PDA is normal. LEFT PLB: The left posterolateral branch is normal. RCA: The RCA is normal. Small nondominant vessel. OTHER FINDINGS: Cardiac Structure: -Left Ventricle: Appears normal in size. LV dimension is 45 mm at mid diastole. The posterior wall measures 9 mm. There is no evidence of ventricular septal defect. There is no myocardial wall thinning or calcific changes suggestive of prior myocardial infarction. -Right Ventricle: Appears normal in size by gross visual estimation. No evidence of RV filling defect or thrombus. -Left Atrium: Normal in size and free of any filling defect. Normal pulmonary vein anatomy. The LA appendage (JOHNNA) is fully opacified with contrast without evidence of JOHNNA thrombus. -Right Atrium: Appears normal in size by gross visual estimation. -Interatrial Septum: Normal without evidence of atrial septal defect or large PFO. -Aortic Valve: No calcification. -Mitral Valve: No annular calcification. -Pericardium: No thickening, effusion or calcification. Major Vessels: -Aortic Root: Normal in size measuring 25 mm (R cusp-commissure). -Ascending Aorta: Measures 25 x 25 mm at the level of the PA bifurcation. No calcific atherosclerosis. -Thoracic Descending Aorta: No calcific atherosclerosis. -Main Pulmonary Artery: Appears normal and measures 22 mm in diameter. No obvious filling defect is seen in the pulmonary trunk or in the right and left main pulmonary arteries. Extra-Cardiac Findings (Limited Field of View): -Chest Wall/Bone: Mild degenerative changes in the thoracic spine. -Mediastinum/Jennifer: R hilar and mediastinal calcific adenopathy. -Pleural Spaces: No thickening, effusion or pneumothorax -Lung Parenchyma: No evidence of significant lung disease, nodules or masses CALCIUM SCORING TABLE . . 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: [employer] SCANNER MODEL: NAEOTOM Alpha DOSE REDUCTION ALGORITHM: Helical with dose modulation SCAN COVERAGE ZONE: Coronary Arteries EKG GATED: Yes GENERAL CONTRAST AGENT ------ CONTRAST AGENT USED?: Yes TYPE: Omnipaque 350 DOSE: 80 ml RATE: 6 ml/s ROUTE: IV BOLUS TECHNIQUE: Biphasic SCAN DELAY TIME METHOD: Bolus Track CT CONTRAST REACTION: None SEDATION ------ SEDATION USED?: No MEDICATION ADMINISTERED DURING SCAN ------ TYPE: Nitroglycerin, sublingual, B-Blockers, Ivabradine NITROGLYCERIN, TOTAL DOSE: 0.4 mg B-NATHEN TYPE: Oral B-NATHEN NAME, ORAL: Metoprolol tartrate B-BLOCKERS, ORAL DOSE (more content not included)... [facility] Radiology Study observation (narrative) [facility] COVID CepheidOrdered By: Byron Kim on 05-24-2024 SARS-CoV-2 (COVID-19) Ab IA Ql Negative Negative [facility] Comment on above: This is a duplicate Cepheid Xpert Xpress CoV-2/Flu/RSV Plus RNA by RT-PCR result to be used for statistical tracking purpose only. SARS-CoV-2 (COVID-19) RNA AMY+probe Ql (Unsp spec) [facility] COVID-19 / Flu A/B / RSV PCR on 05-24-2024 SARS-CoV-2 (COVID-19) RNA AMY+probe Ql (Unsp spec) COVID-19 Cepheid Result Negative for SARS-CoV-2 RNA by RT-PCR Flu A Cepheid Result Negative for Flu A RNA by RT-PCR Flu B Cepheid Result Negative for Flu B RNA by RT-PCR RSV Cepheid Result Negative for RSV RNA by RT-PCR COVID19 Blank Space Reference: Negative COVID19 Blank Space Cepheid Disclaimer The Cepheid Xpert Xpress CoV-2/Flu/RSV Plus has Cepheid Disclaimer not been FDA cleared or approved; this test has Cepheid Disclaimer been authorized by FDA under an EUA for use by Cepheid Disclaimer authorized laboratories; this test has been Cepheid Disclaimer authorized only for the simultaneous qualitative Cepheid Disclaimer detection and differentiation of nucleic acids from Cepheid Disclaimer SARS-CoV-2, influenza A, influenza B, and Cepheid Disclaimer respiratory syncytial virus (RSV), and not for any Cepheid Disclaimer other viruses or pathogens; and this test is only Cepheid Disclaimer authorized for the duration of the declaration that Cepheid Disclaimer circumstances exist justifying the authorization of Cepheid Disclaimer emergency use of in vitro diagnostic tests for Cepheid Disclaimer detection and/or diagnosis of COVID-19 under Cepheid Disclaimer Section 564(b)(1) of the Act, 21 U.S.C. 360bbb- Cepheid Disclaimer 3(b)(1), unless the authorization is terminated or Cepheid Disclaimer revoked sooner. PERFORMED BY: [place] [address] PATHOLOGIST RETAIL ASSISTANT RUSS MAHAN M.D. Normal [facility] Comment on above: Performed By: #### C EPHEID NEG, COVID19 FLU RSV #### [address] Cepheid COVID PCR Negativeon 05-24-2024 SARS-CoV-2 (COVID-19) RNA AMY+probe Ql (Unsp spec) Negative Normal Negative [facility] Comment on above: Result Comment: This is a duplicate Cepheid Xpert Xpress CoV-2/Flu/RSV Plus RNA by RT-PCR result to be used for statistical tracking purpose only. PERFORMED BY: [place] [address] PATHOLOGIST RETAIL ASSISTANT RUSS MAHAN M.D. Performed By: #### C EPHEID NEG, COVID19 FLU RSV #### [address] HCG ( test) IA.alannahi d Ql (U)Ordered By: Wayne Metcalf on 05-24-2024 HCG ( test) Ql (U) Negative [facility] HCG,Urineon 05-24-2024 Beta HCG ( test) Ql (U) Negative Normal [facility] Comment on above: Result Comment: PERF ORMED BY: [place] [address] PATHOLOGIST RETAIL ASSISTANT RUSS MAHAN M.D. Performed By: #### U HCG #### [address] Jasvir 05-24-2024 L Specimen: [id number] Received: 05/24/24-1049 Status: SOUT Req Num: [id number] Spec Type: Surgical Subm Dr: Ever Woodward,DO Tissues: A THYROID - Lobe (L THYROID AND ISTHMUS) B THYROID - Lobe (L POST CAPSUL) Procedures: HE/17, Gross/Micro L5/2, FS HE/2 Age/ Patient Sex Location Account Attending Physician Marianna Ramirez 49/F OR [id number] Ever Woodward DO SPEC NUM: [id number] RECD: 05/24/24 STATUS: LYNN CHALO NUM: [id number] RADHA: 05/24/[address] [facility] [address]: Ever Woodward DO ENTERED: 05/24/24 [facility] DR: SPEC TYPE: Surgical DEPT: S ENTERED BY: [id number] RECV BY: [id number] ORDERED: HE/17, Gross/Micro L5/2, FS HE/2 ORDERED: HE/17, Gross/Micro L5/2, FS HE/2 Pathological Diagnosis A. 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 Left posterior capsule, excision: - Benign thyroid follicular tissue with focally thickened external capsule without tumor CAP CANCER CASE SUMMARY Applies To: A SPECIMEN Procedure: Left lobectomy with isthmusectomy (hemithyroidectomy) TUMOR Specimen: [id number] Received: 05/24/24 Status: GENETKandice Evans Num: [id number] Spec Type: Surgical Subm Dr: Ever Woodward DO Tissues: A THYROID - Lobe (L THYROID AND ISTHMUS) B THYROID - Lobe (L POST CAPSUL) Procedures: HE/17, Gross/Micro L5/2, FS HE/2 Patient: Lori Ramireztra Kearney [id number] (Continued) Specimen: [id number] Received: 05/24/24 (Continued) Pathological Diagnosis (Continued) Signed (signature on file) ChinDariana Ascencio MD 05/29/24 1848 Specimen: [id number] Received: 05/24/24 Status: LYNN Evans Num: [id number] Spec Type: Surgical Subm Dr: Ever Woodward,DO Tissues: A THYROID - Lobe (L THYROID AND ISTHMUS) B THYROID - Lobe (L POST CAPSUL) Procedures: HE/17, Gross/Micro L5/2, FS HE/2 Patient: Marianna Ramirez [id number] (Continued) Specimen: [id number] Received: 05/24/24-1048 (Continued) Pathological Diagnosis (Continued) Tumor Focality: Unifocal Tumor Characteristics Tumor Site: Left lobe Tumor Size: Greatest Dimension (Centimeters) - 2.8 x 2.8 x 1.5 cm Histologic Tumor Types and Subtypes: Minimally invasive follicular carcinoma Tumor Proliferative Activity -Mitotic Rate: Less than 3 mitoses per 2mm2 Tumor Necrosis: Not identified Angioinvasion (vascular invasion): Not identified Lymphatic Invasion: Not identified Perineural Invasion: Not identified Extrathyroidal Extension: Not identified Margin Status: All margins negative for carcinoma -Distance from Invasive Carcinoma to Closest Margin: Less than 1 mm REGIONAL LYMPH NODES Regional Lymph Node Status: Not applicable (no regional lymph nodes submitted or found) pTNM CLASSIFICATION (AJCC 8th Edition) Reporting of pT, pN, and (when applicable) pM categories is based on information available to the pathologist at the time the report is issued. As per the AJCC (Chapter 1, 8th Ed.) it is the managing physician's responsibility to establish the final pathologic stage based upon all pertinent information, including but potentially not limited to this pathology report. pT Category: pT2 pN Category: Not assigned Comment: -The tumor consists of predominantly microfollicular structures with surrounding capsule, consisting of a homogeneous uniform population of follicular cells, including only a small focus of oncocytoid cell with slightly more abundant cytoplasm. There are patchy capsular invasion, focally occasionally also attaching the surrounding benign follicular cells, per features of minimal invasion Clinical Information Thyroid nodule, left thyroid and isthmus Specimen: [id number] Received: 05/24/24 Status: LYNN Evans Num: [id number] Spec Type: Surgical Subm Dr: Ever Woodward DO Tissues: A THYROID - Lobe (L THYROID AND ISTHMUS) B THYROID - Lobe (L POST CAPSUL) Procedures: HE/17, Gross/Micro L5/2, FS HE/2 Patient: Marianna Ramirez [id number] (Continued) ------- (more content not included)... Normal [facility] Automated basophil %Ordered By: Ever Woodward on 05-17-2024 Basophils/100 WBC (Bld) 0.5 % Normal . [facility] Comment on above: Performed By: #### B MP, CBC #### [address] Automated basophil countOrde red By: Ever Woodward on 05-17-2024 Basophils (Bld) [#/Vol] 0.0 10*3/uL Normal 0.0-0.2 [facility] Comment on above: Result Comment: PERF ORMED BY: [place] [address] PATHOLOGIST RETAIL ASSISTANT RUSS MAHAN M.D. Performed By: #### B MP, CBC #### [address] Automated blood monocyte cou ntOrdered By: Ever Woodward on 05-17-2024 Monocytes (Bld) [#/Vol] 0.5 10*3/uL Normal 0.0-0.8 [facility] Comment on above: Performed By: #### B MP, CBC #### [address] Automated eosinophil %Ordere d By: Ever Woodward on 05-17-2024 Eosinophils/100 WBC (Bld) 1.2 % Normal . [facility] Comment on above: Performed By: #### B MP, CBC #### [address] Automated eosinophil countOr dered By: Ever Woodward on 05-17-2024 Eosinophils (Bld) [#/Vol] 0.1 10*3/uL Normal 0.0-0.45 [facility] Comment on above: Performed By: #### B MP, CBC #### [address] Automated monocyte %Ordered By: Ever Woodward on 05-17-2024 Monocytes/100 WBC (Bld) 7.7 % Normal . [facility] Comment on above: Performed By: #### B MP, CBC #### [address] Automated neutrophil %Ordere d By: Ever Woodward on 05-17-2024 Neutrophils/100 WBC (Bld) 74.3 % Normal . [facility] Comment on above: Performed By: #### B MP, CBC #### [address] Basic Metabolic Panelon 05-07 GFR/1.73 sq M.predicted MDRD (S/P/Bld) [Vol rate/Area] mL/min/{1.73_m2} Normal [facility] Comment on above: Performed By: #### B MP, CBC #### [address] Calcium [Mass/volume] in Ser um or PlasmaOrdered By: Ever Woodward on 05-17-2024 Calcium [Mass/Vol] 9.4 mg/dL Normal 8.6-10.3 [facility] Comment on above: Result Comment: PERF ORMED BY: [place] [address] PATHOLOGIST RETAIL ASSISTANT RUSS MAHAN M.D. Performed By: #### B MP, CBC #### [address] Carbon dioxide, total [Moles /volume] in Serum or PlasmaOrdered By: Ever Woodward on 05-17-2024 CO2 [Moles/Vol] 28.9 mmol/L Normal 21.0-31.0 [facility] Comment on above: Performed By: #### B MP, CBC #### [address] Chloride [Moles/volume] in S davdi or PlasmaOrdered By: Ever Woodward on 05-17-2024 Chloride [Moles/Vol] 104 mmol/L Normal 98-107 [facility] Comment on above: Performed By: #### B MP, CBC #### [address] Complete Blood Count Auto Di ffon 05-17-2024 Mean Corpuscular HGB Conc 35.0 g/dL Normal 32.0-35.0 [facility] Comment on above: Performed By: #### B MP, CBC #### [address] NRBC% 0.1 /100{WBC} Normal 0-0.5 [facility] Comment on above: Performed By: #### B MP, CBC #### [place] [address] [place] Creatinine [Mass/volume] in Serum or PlasmaOrdered By: Ever Woodward on 05-17-2024 Creatinine [Mass/Vol] 0.74 mg/dL Normal 0.60-1.20 [facility] Comment on above: Performed By: #### B MP, CBC #### [place] [address] [place] ECG 12 lead ECGon 05-17-2024 ECG 12 lead ECG [facility] [place] [address] [place] [address] Electrocardiograph Report Signed Patient: Marianna Ramirez MR#: [id number] : 1975 Acct:[id number] Age/Sex: 49 / F ADM Date: 05/17/24 Loc: Room: Type: [facility] Attending Dr: Ever Woodward DO Ordering Provider: Ever Woodward DO Date of Service: 05/17/2407/30/759 ECG/ECG 12 lead ECG: for surgery 05/24/24 Copies to: Test Reason : Blood Pressure : */* mmHG Vent. Rate : 73 BPM Atrial Rate : 73 BPM P-R Int : 156 ms QRS Dur : 76 ms QT Int : 354 ms P-R-T Axes : 23 90 39 degrees QTcB Int : 389 ms Normal sinus rhythm Rightward axis No previous ECGs available Confirmed by Katlin Dean ([id number]) on 05/18/2024 12:40:53 AM Referred By: Electronically Signed By: Katlin Dean Transcribed By: MUS Signed By Katlin Dean MD 4 0040 Normal [facility] Erythrocyte distribution wid th [Ratio] by Automated countOrdered By: Ever Woodward on 05-17-2024 Erythrocyte distribution width (RBC) [Ratio] 12.6 % Normal 11.9-15.3 [facility] Comment on above: Performed By: #### B MP, CBC #### [facility] [address] [place] [address] [place] Erythrocytes [#/volume] in B lood by Automated countOrdered By: Ever Woodward on 05-17-2024 RBC (Bld) [#/Vol] 4.30 10*6/uL Normal 3.60-5.00 [facility] Comment on above: Performed By: #### B MP, CBC #### [facility] [address] [place] [address] [place] Glucose [Mass/volume] in Ser um or PlasmaOrdered By: Ever Woodward on 05-17-2024 Glucose [Mass/Vol] 105 mg/dL High 70-100 [facility] Comment on above: ADA recommended refe rence rangeRandom Glucose Reference Range is dependent on time and content of last meal. Glucose of more than 200 mg/dL in a nonstressed, ambulatory subject supports the diagnosis of Diabetes Mellitus. Result Comment: [place] om Glucose Reference Range is dependent on time and content of last meal. Glucose of more than 200 mg/dL in a nonstressed, ambulatory subject supports the diagnosis of Diabetes Mellitus. ADA recommended reference range Performed By: #### B MP, CBC #### [address] Hematocrit [Volume Fraction] of Blood by Automated countOrdered By: Ever Woodward on 05-17-2024 Hematocrit (Bld) [Volume fraction] 38.0 % Normal 34.0-46.4 [facility] Comment on above: Performed By: #### B DEIDRA, CBC #### [address] Hemoglobin [Mass/volume] in BloodOrdered By: Ever Woodward on 05-17-2024 Hemoglobin (Bld) [Mass/Vol] 13.3 g/dL Normal 11.8-15.4 [facility] Comment on above: Performed By: #### B DEIDRA, CBC #### [address] Leukocytes [#/volume] correc vladimir for nucleated erythrocytes in Blood by Automated counOrdered By: Ever Woodward on 05-17-2024 WBC corrected for nucl RBC Auto (Bld) [#/Vol] 6.6 10*3/uL 3.8-11.6 [facility] Leukocytes [#/volume] in Blo od by Automated countOrdered By: Ever Woodward on 05-17-2024 WBC (Bld) [#/Vol] 6.6 10*3/uL Normal 3.8-11.6 [facility] Comment on above: Performed By: #### B DEIDRA, CBC #### [place] [address] [place] Lymphocytes [#/volume] in Bl ood by Automated countOrdered By: Ever Woodward on 05-17-2024 Lymphocytes (Bld) [#/Vol] 1.1 10*3/uL Normal 1.00-4.8 [facility] Comment on above: Performed By: #### B MP, CBC #### [address] Lymphocytes/100 leukocytes i n Blood by Automated countOrdered By: Ever Woodward on 05-17-2024 Lymphocytes/100 WBC (Bld) 16.3 % Normal . [facility] Comment on above: Performed By: #### B MP, CBC #### [address] MCH [Entitic mass] by Automa vladimir countOrdered By: Ever Woodward on 05-17-2024 MCH (RBC) [Entitic mass] 31.0 pg Normal 24.7-34.3 [facility] Comment on above: Performed By: #### B MP, CBC #### [address] MCHC Auto (RBC) [Mass/Vol]Or dered By: Ever Woowdard on 05-17-2024 MCHC (RBC) [Mass/Vol] 35.0 g/dL 32.0-35.0 [facility] MCV [Entitic volume] by Auto mated countOrdered By: Ever Woodward on 05-17-2024 MCV (RBC) [Entitic vol] 88.4 fL Normal 80-100 [facility] Comment on above: Performed By: #### B MP, CBC #### [place] [address] [place] Neutrophils [#/volume] in Bl ood by Automated countOrdered By: Ever Woodward on 05-17-2024 Neutrophils (Bld) [#/Vol] 4.9 10*3/uL Normal 1.8-7.7 [facility] Comment on above: Performed By: #### B MP, CBC #### [address] No Panel InformationOrdered By: Ever Woodward on 05-17-2024 Estimated GFR (CKD-EPI) > 60.0 mL/Min [facility] Creatinine Clearance (Chem N/A [facility] Nucleated erythrocytes [Pres ence] in Blood by Automated countOrdered By: Ever Woodward on 05-17-2024 Nucleated RBC Auto Ql (Bld) 0.1 /100{WBC} 0-0.5 [facility] Platelet mean volume [Entiti c volume] in Blood by Automated countOrdered By: Ever Woodward on 05-17-2024 Platelet mean volume (Bld) [Entitic vol] 7.5 fL Normal 6.3-10.7 [facility] Comment on above: Performed By: #### B MP, CBC #### [facility] [address] [place] [address] [place] Platelets [#/volume] in Bloo d by Automated countOrdered By: Ever Woodward on 05-17-2024 Platelets (Bld) [#/Vol] 259 10*3/uL Normal 150-450 [facility] Comment on above: Performed By: #### B MP, CBC #### [facility] [address] [place] [address] [place] Potassium [Moles/volume] in Serum or PlasmaOrdered By: Ever Woodward on 05-17-2024 Potassium [Moles/Vol] 4.2 mmol/L Normal 3.5-5.1 [facility] Comment on above: Performed By: #### B MP, CBC #### [facility] [address] [place] [address] Serum or plasma anion gap de terminationOrdered By: Ever Woodward on 05-17-2024 Anion gap [Moles/Vol] 10.3 mmol/L Normal 6.0-15.0 [facility] Comment on above: Performed By: #### B MP, CBC #### [facility] [address] [place] [address] [place] Sodium [Moles/volume] in Ser um or PlasmaOrdered By: Ever Woodward on 05-17-2024 Sodium [Moles/Vol] 139 mmol/L Normal 136-145 [facility] Comment on above: Performed By: #### B MP, CBC #### [facility] [address] [id number] [facility] Urea nitrogen [Mass/volume] in Serum or PlasmaOrdered By: Ever Woodward on 05-17-2024 Urea nitrogen [Mass/Vol] 12 mg/dL Normal 7-25 [facility] Comment on above: Performed By: #### B MP, CBC #### [facility] [address] [id number] [facility] Gastroenterology Office/Clin ic Noteon 12-20-2023 Gastroenterology Office/Clinic [...] cm, empiric esophageal dilation performed using [address] [place] Foster dilator 2. Normal gastric mucosa, random [...] goes Gastric emptying study in the past 2018 seen [facility] had neg impedance test Review [...] discussed low FODMAP diet, lactose-free diet Also Kym, she reported peppermint oil helped in the past Will also do BuSpar 10 mg 3 times daily She had negative EGD in the past, I do not like to repeat it right now Also she had gastric emptying study in 2020 with accelerated emptying, 3% in 3 hours We discussed lifestyle modifications for that 2. Acid reflux (K21.9: Gastro-esophageal reflux disease without esophagitis) Take tums, Pepcid and Gaviscon as needed She had negative manometry's multiple times in the past per her report and she had negative impedance test in 2019 in [place] per her report Suspect hypersensitivity 3. Nausea [...] When Contact Information Luis CLINE, GAIL Pappas, MED Within 3 months [address], [address] [phone]- [phone] Additional Instructions: Problem Lis (more content not included)... Normal [facility] Comment on above: Result Comment: Elec tronically Signed By: Luis CLINE, Viral Garcia\.br\Date and Time Signed: 12/20/23 11:57 EDT\.br\Electronically Co-Signed By: Kathleen Pinon MA\.br\Date and Time Co-Signed: 12/20/23 11:55 EDT Beth 10-29-2023 CNPN Telephone (NECVS8) MARIANNA RAMIREZ ([id number]) 1975 F Date Time Provider Department 10/29/23 ALICIA BOLIVAR NECVS8 During your visit today, we recorded the following information about you: Rina Lord 10/29/2023 4:48 PM Signed CV PHONE Name of caller : Avis Relationship to patient : [facility] If not self Will need patient permission to release results or disclose health information with called documented in fyi. Patient identified by Name and Date of . ( Marianna Ashley, 1975). Yes Number to return call [phone] Reason for Call: Avis is calling from [facility] to obtain notes and information for prior Auth of MRI WO IVCON. Sent: Thank you calling [facility]. You will receive a return call within 48 hours ( or 2 business days if close to the weekend). If you feel that this is an urgent issue and needs immediate attention, it is recommended that you contact your primary care provider office or proceed to your nearest Urgent Care Center of Emergency Room ED for evaluation/treatment . Ilana Heredia 11/12/2023 2:24 PM Signed Received faxes from [facility] with results Jatinder Valle RN 11/15/2023 9:55 AM Signed Returned fax with cover letter stating below: Thank you for the MRI report, please push images electronically to [facility] for further review by Dr. Bolivar's office. Thanks! Jatinder Valle RN [phone], option [phone] Allergies As of Date: 10/29/2023 Noted Allergy Reaction GADOLINIUM-CONTAININ G CONTRAST ME*04/14/2023 10 - Anaphylaxis Comments: Throat [...] Encounter Status:Closed by RINA LORD on 10/29/23 [facility] 10-25-2023 [facility] Telephone (NECVS8) MARIANNA RAMIREZ ([id number]) 1975 F Date Time Provider Department 10/25/23 [...] Ramirez, 1975). Yes Number to return call [phone] Reason for Call: Symptoms Call: Symptoms: headache [...] something else going on. Thank you calling [facility] [place]. You will receive a return call within 48 hours ( or 2 business days if close to the weekend). If you feel that this is an urgent issue and needs immediate attention, it is recommended that you contact your primary care provider office or proceed to your nearest [facility] ED for evaluation/treatment . Carmita Giraldo RN 10/25/2023 2:49 PM Signed [...] to Dr Bolivar's team to review Jatinder Valle RN 10/25/2023 4:06 PM Signed Called patient. [...] per via [employer] on Wednesday10/26/2023 tracking # [id number] Allergies As of Date: 10/25/2023 Noted Allergy Reaction GADOLINIUM-CONTAININ G CONTRAST ME*04/14/2023 10 - Anaphylaxis Comments: Throat closing and coughing post MRI with MINI even with premed Date Reviewed: 06/21/2018 Reviewed by: Charles Gutierrez (Manager Of Health), LOGISTICS ANALYST - Fully Assessed Reason for Visit: Symptoms [...] Encounter Status:Closed by CARMITA GIRALDO on 10/25/23 [facility] Ambulatory Visit Summaryon 0 05-04-2023 Ambulatory Visit Summary ASHLEYMARIANNA :1975 Visit Date:05/04/2023 Ambulatory Visit Instructions Your Diagnosis Heartburn RUQ pain Mixed irritable bowel syndrome Dysphagia Abdominal cramping Nausea Your Care Team Attending Physician - Jessica Lopez CNP Primary Care Physician - CJ LAZO MD This Is Your Medications List Contact prescribing physician if questions or concerns carvedilol (Coreg) cetirizine (Zyrtec) lisinopril wheat dextrin (Benefiber) Procedures Performed Esophagogastroduoden oscopy (12/28/2022), Colonoscopy (09/27/2020), EGD (esophagogastroduode noscopy) gastric outlet reduction. Discharge Vitals Temperature (Temporal [...] any. Fruits (more content not included)... Normal [facility] Gastroenterology Office/Clin ic Noteon 05-04-2023 Gastroenterology Office/Clinic [...] well nourished, in no acute distress Head: Normocephalic/atraum atic Lungs: Normal respiratory effort and clear to [...] Previous labs (more content not included)... Normal [facility] Comment on above: Result Comment: Elec boraally Signed By: Jessica Lopez CNP.sumit\Date and Time Signed: 05/04/23 12:42 EDT Patient [...] grapefruit, pineapple, and jeff. Vegetables Deep-fried vegetables. Citizen Of [place] fries. Any vegetables prepared with added fat. [...] reflux di (more content not included)... Normal [facility] 04-12-2023 [facility] Telephone (NECVS8) MARIANNA RAMIREZ ([id number]) 1975 F Date Time Provider Department 04/12/23 ALICIA BOLIVAR NECVS8 During your visit today, we recorded the following information about you: Marta Cash 04/12/2023 11:59 AM Signed CV PHONE Name of caller : Marianna Relationship to patient : Self If not self Will need patient permission to release results or disclose health information with called documented in . Patient identified by Name and Date of . ( Marianna Ramirez, 1975). Yes Number to return call [phone] Reason for Call: Patient Question/Update: Marianna is calling to say she developed an allergy to contrast and cannot have MRI W/WO. Also she would like to know if she can have it done locally. Please call. Thank you calling [facility] [place]. You will receive a return call within 48 hours ( or 2 business days if close to the weekend). If you feel that this is an urgent issue and needs immediate attention, it is recommended that you contact your primary care provider office or proceed to your nearest [facility] ED for evaluation/treatment . Jatinder Valle RN 04/14/2023 10:17 AM Signed [...] Status:Closed by JATINDER VALLE on 04/14/23 Normal [facility] Provider Letteron 01-28-2023 Provider Letter January 28, 2023 MARIANNA RAMIREZ [address] [place] [phone] : 1975 Dear Marianna , We have been trying to reach you with no success. It is important that you return our call regarding your ultrasound results upon receiving this letter. Also, at the time of your call, please provide us with your current information. Thank you for your prompt attention to this matter. Sincerely, [facility] [phone] [facility] RAD - Ultrasound Reporton RAD - Ultrasound Report [id number] #1.00CD:[address] [facility] Gastroenterology Office/Clin ic Noteon 01-13-2023 Gastroenterology Office/Clinic [...] was negative. Patient reported during visit with de 12/2022 that over the last 4 months [...] IBS, she has always had mixture of constipation/diarrhe a. Is having 4 BMs a week, primarily [...] well nourished, in no acute distress Head: Normocephalic/atraum atic Lungs: Normal respiratory effort and clear to [...] changes, gastric (more content not included)... Normal [facility] Comment on above: Result Comment: Elec tronically Signed By: Jessica Lopez CNP\.sumit\Date and Time Signed: 01/13/23 10:40 EDT Patient [...] these instructions at home: Medicines ? Take emak-qnl-flrxjsk and prescription medicines only as told by your health care provider. ? If you were prescribed an antibiotic medicine, take it as told by your health care provider. Do not stop taking the antibiotic even if you start to feel better. Eating and drinking ? Make any diet changes as told by your health care provider. ? Work with a diet and clinical operations specialist (dietitian) to create an eating [...] person's throa (more content not included)... Normal [facility] Lab Reportson 01-12-2023 Lab Reports [id number] #1.00CD:[address] [facility] Lab Reportson 01-07-2023 Lab Reports [id number]# 1.00CD:[address] [facility] IntraOperative Documentson 0 01-01-2023 IntraOperative Documents [id number]#1.00CD:127 [facility] Postoperative Documentson Postoperative Documents [id number]#1.00CD:[address] [facility] Coding Summary.on 12-30-2022 Coding Summary. CD:[id number] Ww+PGhlYWQ+TR9CXYCsH 04lwFKyjH1uX0GPXLaKJ ywgQVBQTElOSyIgbmFtZ F4bfNTnHYJy IC8+RH5bODVyNjvmaTTw q3N2vJV1A67eaz6bUOxv mVP9GVItBnOhgghvs4te yDr7JSgcNdsaVxPl LLOejQ29GHZ4xS71Pq85 lCMepNQgj3erbLp9JrMf NAHeBAB6lIzjJTbyv5Af UDBeD26ezMXan4Y9 IGNvbGxhcHNlOyBlbXB0 vK8tILcgxwphb9pzsayo Diz6ew59uIApc7O9dYJ6 S5SczhD5SLPuiUZm BdodfBDHwI3lkaysz5rx hodsGsPuMDAtHSb5FVk7 YGOlhDqyZeTyVK50CXC2 JXDxzjTkI7TrSBTi iLxpUjJ7y2L0Eb9ZZ6FY GszkR7WTGCMSGLrouXI+ ZN04cb65X5WeRetsTue2 WWLcXKR3tRQ9vE2x MNQpXEjfp4F3qIE7Q4Ow jpKfpm0je8ikDILgXYlh H66huXEzv6E7SKXfnAD4 FDUncXkhCySaqD14 Oyc+YQZacBrjy3HdKyxh x4lyh5uxtFz2SgbeURUf arLysAnxJKG0u6UaGg5a VOZafLN1aOR8xA2n RyUkVhX8ZTuuQ460AvPs wNCtHtfzX24tF6EmxML+ WWCgRzg6TOQqpIpaIZ1k A6JjMCDethpjvEWb hDreBJ1gXLPcconaAVDr nK0eDDEaV8c6ZsBsBdZ0 YPdsN5TxZZOfikqoJs13 kE6mEcZbCvJ2QHiw S9EgxgI8MPRssZHgIAzy PTQ0Q61ry3P7BUPwVDAv QAY6yLG4rE3heHlqvxmm bGVmdDsgdmVydGlj MNlxAQkaO266BUDmzWhi PkNvZGluZyBEYXRlOiAg MDQvMjYvMjAyMzwvdGQ+ OHRaSNW7uWzzRVTp qECuHEndHw8igMoiaRci PY7vVCDyccvsNOTkgU4l ZQEqhVMqrPwpZT0vAKWj mjfoh557BxQvFTJ5 GUScsICzB6SsfE5lJpTl MCUbMLWqI0SwhNSnLEoj R993TGtkTtV5SLBybyLy C6PuYRUwpGlkCpY7 w5T9My9Zr7CyuiqdM0Se pBXlHmYoQithUMl4Q9Ft PjwvdHI+KG40UYSvVO70 VVe0JPO6vIreNRwx INMnE0ZonN5zTqUoAWJf ZGRkOyc+PHRhYmxlIHdp ZHRoPScxMDAlJyBzdHls UJ1kWj0vFQQnLEEr zVzorZKeZlOey9qoZMJn HYvnJN0xjEalJ0XfoPU3 RZVvy6z1Fo76C84mF0Ae dXA+FFDpuBT4wUI6 jE6mCdTvVmI7JLiiZ303 ClZubGXqCzpii4hjr1dr zMn9XtF7FATyfuXcpKql TOY8f2FvJx20K88j IHdpZHRoPSIxNSUiIHZh iRxizw4iqP5uZi5+PGNv bNL9zPR7dN5cOmLqLvM9 IYlpL482VgJyrFNj Gphzg8jlp0mejMi5GzGd PWHnqlHutAsxFZR3j0Ih Ec34E7BydOgsu2IcXbw3 lc27lWYnq6S9zXY8 J8JjIVHrwltgbKApxDge AH6pZCQsttrkXKGufF9m IUCtQ8o1DlDlLdZ2DXpt G3JpeqD2ZRIbkYDh FIPtqIPKdC3dgbkrx7af wahvBdKyVMSoNKn6HHs4 RHHykWwkRiJvDDH5AvN6 DCK5gOPpbQ2vsRze pxmcbD8yOui+WJK9aUCw mGQWJQ3lXcaxkHV+PHRk GIZ8dUtxGVylEJGhoO0j PQEbK1j9KrNwXoN2 RJaxL3AhhnU6GRPazURy PKNkfYGDcR1zmaaoa8mv hkarUcKnSBJtCTe2RSu1 LWFsaWduOiBsZWZ0 RjZ1JIC8qORhuQ5heHum opsioQ3eMzk+QmlydGgg ENE1THc7K5DiVai1FFQp lZnsIT5vrFLzQMrm Cu5dgUggkOyeWP4tAXDf cizbs279KiZwt9foWEMg xHFnPVxdZWO5G94gm7E9 XEQhPBNnHJS1rYJ9 xG4ruUtmzbwweKAggVbl pdGyzZxfVQqiBNeuV129 VPJkqKpuMfDmUOa1W5Dm Oku0YGZzsIzxMQ9l aOWiZEidLe0neGcauSpv XQ9rDGPwounxq830XgMc t6caQBAwxZWbMDrtSAR6 P84pj4J0KVTiDRQs RKN2wFN4oD0gbAbutcwb bGVmdDsgdmVydGljYWwt VYzaA977KZVeeXjtGcTt kKl3L5NlAls7OLMi zHgsJE5uwBSaVPdyUy1n iZdfxXjyNC4yUZJiwdhb t726MoYze1jlEBWdeFFv SKzaUKM5S25ke0Z6 BWBfRMVsSGM8eWT8yI4c bGlnbjogbGVmdDsgdmVy tShwCCbyJXqeF200SNAt cDsnPlBhdGllbnQg QJvwJUp5Y0PeFfszsLL+ XQ56ARJeHX19xRAxcFIn e9mbiBl8ReUiANIrSBN9 gWuwCGqdf7EpIMHm R28kuBFhw8U1LKLthInt fHSqFsHooPJ0iD2eVDch dijgr2ywucoqGkxnm1tu ww27gG20J45yDHcx ZHRoPSIzMCUiIHZhbGln xv8eaG7fVu4+PGNvbCB3 tGO4mN7gZENlHsF0KVvb W358QmHfyJHhDepg a0gvr8asjNg8YeY2MCEx rqBxcHygLSR7x2UtKs71 Z64cIEvyJDFwVUKsUMLc XHRygWqmkm1etI6r Ii8+YCHdxCF8lJB8wP3w TeAkPnC0AHefI250EzWf aMBqKogtB08qC9SgqMO+ AELbEmj2TCLfxCom RB8igKJsDZnnXf1fDTF8 GlHkZlKhUNuqQ9VxPRAz rbojxjpowGL0LWAkSPRq yL19Pe9zdSlvQKFw lYVYxY5wffnff2bfehzk ZeBmNGGdIDa1ZVl7EZQp jLygSrNaXJP0HqN4UEL3 jUGkqP3gqExuaobr jO4kX3FoVPZwdhzaCo05 bR2kNzDpTzB2LUydDww+ QROJFcKETPvxAIlLX9WD LY24RW54xBNyk2M2 cLR1A1DrDLRscvfdeavi yHM6QIJmEQQyyW93xYHr DCvvOt9gb5M1z579XRMb AXIzmX78Yk2qkKlh TBYzrCGNkN5ulubjz3se ihoaPlIeWPDpKKl3FXd2 LJDidLauUxClJPY5QqZ8 TOE0pOBthL8czYuw ndzujD9vSvf+MDkvMDMv BHw0GJvhuKQ+PHRkIHN0 vLisDFhrQSEfbY6jHWWj O9u9YfZkLmO2XDka Z1UePTGdzlbkUt23yK5i GsMwDpT1HTnvO1PveuB8 DURgzWZnWNenRCZ8W22c s2W9VIJoBRVnVEU2 qKU5aZ7itTihfjlnhEPy dDsgdmVydGljYWwtYWxp P146TYOoqLigPoS8UMjn ATMsLL98TK12mCEk d7N1vFD7E4NmRUYdqmew hocdyDQ4LLKaNRLvpL69 lSNxGJztVc2mc1O3c218 UNXiNNMhzA64Mn2x uWksYQMlqRNJnG5kgsug h0whrragLcJkMVBtOVv5 XLb0QCRsoUtnAfUmKOO7 ZzC4KHY7dWPkuK8m hTqaafqhsB1jHzv+RmVt WGspDZ98VU54wZCzl6Z9 sEO6Z9SjLTYinsdwkttg zIW0WNWmKPSdlZ66 jXEhKHszGs3ml9M1v547 NMXmABQyaO85Sx2amWeh RTFizDGEmV9mhrqys6ap cjogIzAwMDAwMDt0 RNv6UUMtxLwxQvXrMJQ9 HqH3KJN0nUGhrV9meBua etardO7iDah+U1Y8nWT3 aWVudDwvdGQ+PC90 vr72T5RqWqcaRmu6KXZf ENY7lCD3sR3jYKHiCOdg i7E6eSD3G1OhwxUdzb0g f1feSZOaNMldG33o wTZrh8O6EPXbcFC4FHOg dJvzBaUomN58Lcg+PGNv cLeez9YzYvirq2gam1rn rHb2PaMiMYEltuAz eQsbDXT7e5GaKs77S71u IHdpZHRoPSIzMCUiIHZh iKwcim8izA1yQh0+PGNv vWB0xIV8hH3dTzSp YhN8KYpvZ617QkLdoRFa Ymprm2srt9vubLv1GySm LTOoniWwpYzrIBE9d4Mq Wi64M9OhiDtaz2Ck Vhm5lo76kGXhl6A3fMD3 T6CfZMCdcdvdrQIojQpc BT0iTPXhmcpzBVHsmZ4g CDJjA0i4ZkZdNxE8 UFfxJ9KgibD6ONNhdCAf NLEuwAFYmS1qtfsmc3ku spklSjVfWMSdQSg2OSt1 LWFsaWduOiBsZWZ0 VgY3EGH8yUOgmH6drDuj ohkfbX4tXgw+LJs8y9po iUNaPK6gfPI2ZA61CA53 pNLpj4R8uKL1L0El XOKbaibilxjkoYL6CIFy NBEflX34Iu0iaKrzHr3n ARFnQEU9KRFgmCCsM8Tb lT9lXeLcJDTvRWUq C4PnuRAyWZfjP450BLwi KuS7IGZoggDvM6DkIQMt dNfoZkP6d9N9We5HSW22 WM61IC22uWMxo4G1 mBT6Y5YaLDOprhgqrwuw mNB5ZQGoBHPwbM27Dq5d eQzvXs1oJXQwQUP2MTGd yANpM1RfyY8lDzLw OULqQKLoT8KvtNRjHIfd F474ATiqTcD4VMYfcrAj E9XsMMCcrKfsZjI4y9Z8 Ad1BVc46SW29WJ96 rFEko7E5tJN5Y0QoUXZs wdbnwgxogZQ6CVLjQZWi kN97Sj8pxLtgNo8kTTHr IEL5SAMbrRVaZ7Vi kY7jAaAxUKLnZMQzK3Cq gBBwVMarX712AFcvBkC6 RADnmlMvR5NlLTVtyRss SoX5y4G2We2FZOeh ffh8B2MoKvwmtAX+PC90 BQUjWT52jTVjkIKfu4ka fDy9IlWcBQYpOQR9jVck UKqma3RhMNNpZ81e iURde8F9 (more content not included)... Normal [facility] Consenton 12-30-2022 Consent [id number]#1.00CD:[address] [facility] Discharge Instructionson Discharge Instructions [id number] 5#1.00CD:[address] [facility] OVA AND PARASITE EXAMINATION on 12-30-2022 Ova + Parasite Exam Final report Normal [facility] Comment on above: Result Comment: Thes e results were obtained using wet preparation(s) and trichrome stained smear. This test does not include testing for Cryptosporidium parvum, Cyclospora, or Microsporidia. Performed By: #### C BC #### [facility] [address] [address] [address] Belkis Ascencio Result 1 Comment Normal [facility] Comment on above: Result Comment: No o va, cysts, or parasites seen. . One negative specimen does not rule out the possibility of a parasitic infection. Performed By: #### C BC #### [facility] [address] [place], [place] [address] Dr. Belkis Ascencio Main OR Intraoperative Recor don 12-29-2022 Main OR Intraoperative Record IntraOp Document Type FT Summary Primary Physician: Petty AMBROSE MD Finalized Date/Time: 12/29/22 13:14:21 Pt. Name: MARIANNA RAMIREZ /Sex: 1975 Female Med Rec #: [id number] Physician: Petty AMBROSE MD Financial #: [id number] Pt. Type: O Room/Bed: / Admit/Disch: 12/28/22 [...] CST, Parvin Kearney Role Performed Anesthesiologist of Spray Drier - Primary Scrub - Primary Record Time In 12/28/22 10:27:00 12/28/22 10:27:00 12/28/22 10:27:00 Time Out 12/28/22 10:40:00 12/28/22 10:40:00 12/28/22 10:40:00 Procedure EGD(.) EGD(.) EGD(.) Comments Last Modified By: Isaiah RN, Kalpesh Colon RN, Kalpesh Colon RN, Kalpesh Rai 12/28/22 10:41:56 12/28/22 10:41:56 12/28/22 10:41:56 Entry [...] Colon RN, Schafer CST, MONSERRAT Carreno MD, Petty Time Out Complete 12/28/22 10:28:00 Outcomes Met? [...] Arm P (more content not included)... Normal [facility] Consent for Treatmenton 12-06 Consent for Treatment [id number] #1.00CD:[address] [facility] Endoscopic Procedure Report - Otheron 12-28-2022 Endoscopic Procedure Report - Other Patient: MARIANNA RAMIREZ Age: 47 years Sex: Female : 1975 Associated Diagnoses: None Author: Petty AMBROSE MD Pre-Procedure Procedure Date 12/28/2022 10:37:00 . Procedure Type: Esophagogastroduoden oscopy. Procedure provider Performed by Petty Ambrose MD. Current history and physical Documented on chart. Informed Consent After discussing the rationale, risks and benefits, and alternatives to this procedure, the patient provided signed consent for the procedure. Pre-procedure diagnosis: Dysphagia/ odynophagia. Right upper quadrant pain. Medications Anticoagulant/antipl atelet No anticoagulation or antiplatelet. ASA Classification: Class [...] cm, empiric esophageal dilation performed using 58 Citizen Of [place] Foster dilator 2. Normal gastric mucosa, random biopsies obtained from antrum, incisura, gastric body and fundus 3. Normal duodenum Images Procedure images: Rec1_hd_video_2023_0 4_24T09_36_15_416.josh g Rec1_hd_video_2023_0 4_24T09_35_37_439.josh g Rec1_hd_video_2023_0 4_24T09_34_49_545.josh g Rec1_hd_video_2023_0 4_24T09_34_55_284.josh g Rec1_hd_video_2023_0 4_24T09_34_23_889.josh g Rec1_hd_video_2023_0 4_24T09_34_15_407.josh g . Post-Procedure Complications: none. Estimated blood loss: none. Specimens: sent to pathology. Devices/ implants: none left in place. Impression and Plan 1. Normal esophagus, Z line at 40 cm, empiric esophageal dilation performed using 58 Citizen [place] Foster dilator 2. Normal gastric mucosa, random biopsies obtained from antrum, incisura, gastric body and fundus 3. Normal duodenum Recommendations: 1. Awaiting pathology report. 2. GI clinic follow-up in 2 weeks [facility] Comment on above: Result Comment: Elec tronically Signed By: MONSERRAT CLINE, Petty\.br\Date and Time Signed: 12/28/22 10:38 EDT Other Comment: Chaparrita howard Attachment - attachment storage system not supported [id number] Can be viewed in source systemMissing Attachment - attachment storage system not supported [id number] Can be viewed in source systemMissing Attachment - attachment storage system not supported [id number] Can be viewed in source systemMissing Attachment - attachment storage system not supported [id number] Can be viewed in source systemMissing Attachment - attachment storage system not supported [id number] Can be viewed in source systemMissing Attachment - attachment storage system not supported [id number] Can be viewed in source system Main OR PACU I Recordon 12-06 Main OR PACU I Record PACU Phase I Document Type FT Summary Primary Physician: Petty AMBROSE MD Finalized Date/Time: 12/28/22 11:26:29 Pt. Name: MARIANNA RAMIREZ/Sex: 1975 Female Med Rec #: [id number] Physician: Petty AMBROSE MD Financial #: [id number] Pt. Type: O Room/Bed: / Admit/Disch: 12/28/22 [...] By: Deja Ken RN 12/28/22 11:[address] [facility] Main OR Preoperative Recordo n 12-28-2022 Main OR Preoperative Record Holding Area Document Type FT Summary Primary Physician: Petty AMBROSE MD Finalized Date/Time: 12/28/22 10:00:59 Pt. Name: MARIANNA RAMIREZ/Sex: 1975 Female Med Rec #: [id number] Physician: Petty AMBROSE MD Financial #: [id number] Pt. Type: O Room/Bed: / Admit/Disch: 12/28/22 [...] By: Tess Cummins RN 12/28/22 10:[address] [facility] Monitor Recordon 12-28-2022 Monitor Record [id number] 8#1.00CD:127 [facility] Monitor Record [id number]#1.00CD:127 [facility] Progress Note-Physicianon Progress Note-Physician Patient: MARIANNA RAMIREZ Age: 47 years Sex: Female : 1975 Associated Diagnoses: None Author: Frank oTvar MD Postoperative Information Postoperative disposition Optimetrix number: Optimetrix number [id number]. Anesthetic utilized: General. Physical Examination Vital Signs [...] when meets criteria ( To home ). [facility] Comment on above: Result Comment: Elec tronically [...] significant change. Review of Systems Eye: Negative. Ear/Nose/Mouth/Throa t: Negative. Respiratory: Negative. Cardiovascular: Negative. Gastrointestinal: Negative. Genitourinary: Negative. Hematology/Lymphatic s: Negative. Endocrine: Negative. Musculoskeletal: Negative. Neurologic: Negative. [...] All Problems Abdominal cramping / SNOMED CT 843004554 / Confirmed Acid reflux / SNOMED CT 613659599 / Confirmed Diarrhea / SNOMED CT 570018520 / Confirmed Dysphagia / SNOMED CT 97286090 / Confirmed RUQ pain / SNOMED CT 114089955 / Confirmed, Active Problems (5) Abdominal cramping [...] in all extremities. Gastrointestinal: Soft, Non-tender. Plan [place] [employer]hesi[employer] (ASA) physical status classification: Class II. Anesthetic Preoperative Plan: Anesthesia General. [facility] Comment on above: Result Comment: Elec tronically Signed By: Guy CLINE, Frank Keenan.br\Date and Time Signed: 12/28/22 17:55 EDT Lab Reportson 12-24-2022 Lab Reports [id number] #1.00CD:127 [facility] Lab Reportson 12-23-2022 Lab Reports [id number] #1.00CD:127 [facility] Consent for Procedure/Surger yon 12-22-2022 Consent for Procedure/Surgery [id number] #1.00CD:127 [facility] GI PANEL (PCR)on 12-22-2022 Adenovirus F 40/41 Not detected Normal NOT DETECTED [facility] Comment on above: Performed By: #### C BC #### [facility] [address] [place] [address] Dr. Belkis Ascencio Astrovirus Not detected Normal NOT DETECTED [facility] Comment on above: Performed By: #### C BC #### [facility] [address] [place] [address] Dr. Belkis Ascencio C. Diff toxin A/B Not detected Normal NOT DETECTED [facility] Comment on above: Performed By: #### C BC #### [facility] [address] [place] [address] Dr. Belkis Ascencio Campylobacter Not detected Normal NOT DETECTED [facility] Comment on above: Performed By: #### C BC #### [facility] [address] [place] [address] Dr. Belkis Ascencio Cryptosporidium Not detected Normal NOT DETECTED [facility] Comment on above: Performed By: #### C BC #### [facility] [address] [place] [address] Dr. Belkis Ascencio Cyclos. Cayetanensis Not detected Normal NOT DETECTED [facility] Comment on above: Performed By: #### C BC #### [facility] [address] [place] [address] Dr. Belkis Ascencio E. Coli O157 Not Applicable Normal Not Applicable [facility] Comment on above: Performed By: #### C BC #### [facility] [address] [place] [address] Dr. Belkis Ascencio E. histolytica Not detected Normal NOT DETECTED [facility] Comment on above: Performed By: #### C BC #### [facility] [address] [place] [address] Dr. Belkis Ascencio EAEC Not detected Normal NOT DETECTED [facility] Comment on above: Performed By: #### C BC #### [facility] [address] [place] [address] Dr. Belkis Ascencio EIEC Not detected Normal NOT DETECTED [facility] Comment on above: Performed By: #### C BC #### [facility] [address] [address] [address] Belkis Ascencio EPEC Not detected Normal NOT DETECTED [facility] Comment on above: Performed By: #### C BC #### [facility] [address] [address] [address] Belkis Ascencio ETEC Not detected Normal NOT DETECTED [facility] Comment on above: Performed By: #### C BC #### [facility] [address] [address] [address] Belkis Mendez Lamblia Not detected Normal NOT DETECTED [facility] Comment on above: Performed By: #### C BC #### [facility] [address] [place] [address] Dr. Belkis ARRIAZA CONTROLS PASSED Normal [facility] Comment on above: Performed By: #### C BC #### [facility] [address] [place] [address] Dr. Belkis SAMUELS HEADER GI PANEL BACTERIA Normal T [facility] Comment on above: Performed By: #### C BC #### [facility] [address] [place] [address] Dr. Belkis WU ECOLI GI PANEL DIARRHEAGENIC E.COLI / SHIGELLA Normal [facility] Comment on above: Performed By: #### C BC #### [facility] [address] [place] [address] Dr. Belkis WU INFO SEE BELOW Normal [facility] Comment on above: Result Comment: EAEC - Enteroaggregative E. Coli EPEC- Enteropathogenic E. Coli ETEC- Enterotoxigenic E. Coli lt/st STEC- Shigella-like toxin-producing E. Coli stx1/stx2 EIEC- Shigella/Enteroinvasive E. Coli Performed By: #### C BC #### [facility] [address] [place] [address] Dr. Belkis WU PARASITES GI PANEL PARASITES Normal [facility] Comment on above: Performed By: #### C BC #### [facility] [address] [place] [address] Dr. Belkis Ascencio [facility] VIRUS GI PANEL VIRUSES Normal [facility] Comment on above: Performed By: #### C BC #### [facility] [address] [place] [address] Dr. Belkis Ascencio Norovirus GI/GII Not detected Normal NOT DETECTED [facility] Comment on above: Performed By: #### C BC #### [facility] [address] [place] [address] Dr. Belkis Ascencio P. Shigelloides Not detected Normal NOT DETECTED [facility] Comment on above: Performed By: #### C BC #### [facility] [address] [place] [address] Dr. Belkis Ascencio Rotavirus A Not detected Normal NOT DETECTED [facility] Comment on above: Performed By: #### C BC #### [facility] [address] [place] [address] Dr. Belkis Ascencio Salmonella Not detected Normal NOT DETECTED [facility] Comment on above: Performed By: #### C BC #### [facility] [address] [place] [address] Dr. Belkis Ascencio Sapovirus Not detected Normal NOT DETECTED [facility] Comment on above: Performed By: #### C BC #### [facility] [address] [place] [address] Dr. Belkis Ascencio STEC Not detected Normal NOT DETECTED [facility] Comment on above: Performed By: #### C BC #### [facility] [address] [place] [address] Dr. Belkis Ascencio Vibrio Not detected Normal NOT DETECTED [facility] Comment on above: Performed By: #### C BC #### [facility] [address] [place] [address] Dr. Belkis Ascencio Vibrio Cholera Not detected Normal NOT DETECTED [facility] Comment on above: Performed By: #### C BC #### [facility] [address] [place] [address] Dr. Belkis Ascencio Y. Enterocolitica Not detected Normal NOT DETECTED [facility] Comment on above: Performed By: #### C BC #### [facility] [address] [address] [address] Belkis Ascencio RAD - Ultrasound Reporton RAD - Ultrasound Report [id number] Normal [facility] US SINGLE QUAD RT UPPERon US SINGLE [...] GABRIELA CONKLIN Date: 2022-12-22 12:18 Normal [facility] Ambulatory Visit Summaryon 0 12-21-2022 Ambulatory Visit [...] dextrin (Benefiber) Procedures Performed Colonoscopy (09/27/2020), EGD (esophagogastroduode noscopy) gastric outlet reduction. Discharge Vitals Temperature (Temporal [...] serving. ? Talk with a diet and clinical operations specialist (dietitian) if you have questions [...] Avocado. Pr (more content not included)... Normal [facility] CBC AUTO DIFFon 12-21-2022 BASO # 0.0 103/ul Normal 0.0-0.1 [facility] Comment on above: Performed By: #### C BC #### [facility] [address] [place], [place] [address] Dr. Belkis Ascencio Basophils/100 WBC (Bld) 0.2 % Normal 0.2-2.0 [facility] Comment on above: Performed By: #### C BC #### [facility] [address] [place], [place] [address] Dr. Belkis Ascencio EO # 0.1 103/ul Normal 0.0-0.7 [facility] Comment on above: Performed By: #### C BC #### [facility] [address] [place] [address] Dr. Belkis Ascencio Eosinophils/100 WBC (Bld) 0.8 % Critically low 0.9-7.0 [facility] Comment on above: Performed By: #### C BC #### [facility] [address] [place] [address] Dr. Belkis Ascencio Erythrocyte distribution width (RBC) [Ratio] 11.8 % Normal 11.0-15.0 [facility] Comment on above: Performed By: #### C BC #### [facility] [address] [place] [address] Dr. Belkis Ascencio Hematocrit (Bld) [Volume fraction] 38.2 % Normal 36.0-48.0 [facility] Comment on above: Performed By: #### C BC #### [facility] [address] [place] [address] Dr. Belkis Ascencio Hemoglobin (Bld) [Mass/Vol] 13.2 g/dL Normal 12.0-16.0 [facility] Comment on above: Performed By: #### C BC #### [facility] [address] [place] [address] Dr. Belkis Ascencio IG # 0.03 10e3/ul Normal 0.00-0.03 [facility] Comment on above: Performed By: #### C BC #### [facility] [address] [place] [address] Dr. Belkis Ascencio IG % 0.3 % Normal 0.0-0.5 [facility] Comment on above: Performed By: #### C BC #### [facility] [address] [place] [address] Dr. Belkis Ascencio LYMPH # 1.9 103/ul Normal 1.2-3.8 [facility] Comment on above: Performed By: #### C BC #### [facility] [address] [place] [address] Dr. Belkis Ascencio Lymphocytes/100 WBC (Bld) 21.0 % Normal 20.5-60.0 [facility] Comment on above: Performed By: #### C BC #### [facility] [address] [place] [address] Dr. Belkis Ascencio MANUAL DIFF REQ NO Normal [facility] Comment on above: Performed By: #### C BC #### [facility] [address] [place] [address] Dr. Belkis Ascencio MCH (RBC) [Entitic mass] 30.9 pg Normal 26.7-34.0 [facility] Comment on above: Performed By: #### C BC #### [facility] [address] [place] [address] Dr. Belkis Ascencio MCHC (RBC) [Mass/Vol] 34.6 g/dL Normal 29.9-35.2 [facility] Comment on above: Performed By: #### C BC #### [facility] [address] [place] [address] Dr. Belkis Ascencio MCV (RBC) [Entitic vol] 89.5 fL Normal 81.0-99.0 [facility] Comment on above: Performed By: #### C BC #### [facility] [address] [place] [address] Dr. Belkis Ascencio MONO # 0.7 103/ul Normal 0.3-0.8 [facility] Comment on above: Performed By: #### C BC #### [facility] [address] [place] [address] Dr. Belkis Ascencio Monocytes/100 WBC (Bld) 7.8 % Normal 1.7-12.0 [facility] Comment on above: Performed By: #### C BC #### [facility] [address] [place] [address] Dr. Belkis Ascencio NEUT # 6.5 103/ul Normal 1.4-6.5 [facility] Comment on above: Performed By: #### C BC #### [facility] [address] [place] [address] Dr. Belkis Ascencio Neutrophils/100 WBC (Bld) 69.9 % Normal 43.0-75.0 [facility] Comment on above: Performed By: #### C BC #### [facility] [address] [place] [address] Dr. Belkis Ascencio Platelet mean volume (Bld) [Entitic vol] 9.6 fL Normal 9.5-13.5 [facility] Comment on above: Performed By: #### C BC #### [facility] [address] [address] [address] Belkis Ascencio PLT 264 103/ul Normal 150-450 [facility] Comment on above: Performed By: #### C BC #### [facility] [address] [place] [address] Dr. Belkis Ascencio RBC 4.27 106/ul Normal 4.20-5.40 [facility] Comment on above: Performed By: #### C BC #### [facility] [address] [place] [address] Dr. Belkis Ascencio WBC 9.3 103/ul Normal 4.0-11.0 [facility] Comment on above: Performed By: #### C BC #### [facility] [address] [place] [address] Dr. Belkis Ascencio Gastroenterology Office/Clin ic Noteon [...] Dr. Ambrose. Previous colonoscopy 09/[address] Salam revealed normal terminal ileum, hemorrhoids and is [...] well nourished, in no acute distress Head: Normocephalic/atraum atic Lungs: Normal respiratory effort and clear to [...] Enteric Pane (more content not included)... Normal [facility] Comment on above: Result Comment: Elec tronically Signed By: Jessica Lopez CNP\.sumit\Date and Time Signed: 12/21/22 13:18 EDT PROF 14(COMP METB)on 023 Albumin [Mass/Vol] 4.0 g/dL Normal 3.4-5.[address] [facility] Comment on above: Performed By: #### C MP #### [facility] [address] [place] [address] Dr. Belkis Ascencio Albumin/Globulin [Mass ratio] 1.0 {ratio} Normal [facility] Comment on above: Performed By: #### C MP #### [facility] [address] [place] [address] Dr. Belkis Ascencio ALP [Catalytic activity/Vol] 43 U/L Critically low 46-116 [facility] Comment on above: Performed By: #### C MP #### [facility] [address] [place] [address] Dr. Belkis Ascencio ALT [Catalytic activity/Vol] 18 U/L Normal 14-59 [facility] Comment on above: Performed By: #### C MP #### [facility] [address] [place] [address] Dr. Belkis Ascencio Anion gap [Moles/Vol] 9.5 mmol/L Normal [facility] Comment on above: Performed By: #### C MP #### [facility] [address] [place] [address] Dr. Belkis Ascencio AST [Catalytic activity/Vol] 13 U/L Critically low 15-37 [facility] Comment on above: Performed By: #### C MP #### [facility] [address] [place] [address] Dr. Belkis Ascencio Bilirubin [Mass/Vol] 0.3 mg/dL Normal 0.2-1.0 [facility] Comment on above: Performed By: #### C MP #### [facility] [address] [place] [address] Dr. Belkis Ascencio Calcium [Mass/Vol] 9.2 mg/dL Normal 8.5-10.[address] [facility] Comment on above: Performed By: #### C MP #### [facility] [address] [place] [address] Dr. Belkis Ascencio Chloride [Moles/Vol] 104 mmol/L Normal 98-107 [facility] Comment on above: Performed By: #### C MP #### [facility] [address] [place] [address] Dr. Belkis Ascencio CO2 [Moles/Vol] 29.4 mmol/L Normal 21.0-32.0 [facility] Comment on above: Performed By: #### C MP #### [facility] [address] [address] [address] Belkis Ascencio Creatinine [Mass/Vol] 0.68 mg/dL Normal 0.55-1.02 [facility] Comment on above: Performed By: #### C MP #### [facility] [address] [address] [address] Belkis Ascencio EGFR-AF SENEGALESE >60 Normal >=60 [facility] Comment on above: Performed By: #### C MP #### [facility] [address] [address] [address] Belkis Ascencio EGFR-NON AF SENEGALESE >60 Normal >=60 [facility] Comment on above: Performed By: #### C MP #### [facility] [address] [address] [address] Belkis Ascencio Globulin (S) [Mass/Vol] 4.2 g/dL Normal [facility] Comment on above: Performed By: #### C MP #### [facility] [address] [address] [address] Belkis Ascencio Glucose [Mass/Vol] 92 mg/dL Normal 74-[address] [facility] Comment on above: Performed By: #### C MP #### [facility] [address] [address] [address] Belkis Ascencio Potassium [Moles/Vol] 3.9 mmol/L Normal 3.5-5.1 [facility] Comment on above: Performed By: #### C MP #### [facility] [address] [address] [address] Belkis Ascencio Protein [Mass/Vol] 8.2 g/dL Normal 6.4-8.[address] [facility] Comment on above: Performed By: #### C MP #### [facility] [address] [address] [address] Belkis Ascencio Sodium [Moles/Vol] 139 mmol/L Normal 136-145 [facility] Comment on above: Performed By: #### C MP #### [facility] [address] [place], [place] [address] Dr. Belkis Ascencio Urea nitrogen [Mass/Vol] 15.0 mg/dL Normal 7.0-18.0 [facility] Comment on above: Performed By: #### C MP #### [facility] [address] [place], [place] [address] Dr. Belkis Ascencio Urea nitrogen/Creatinine [Mass ratio] 22.1 mg/mg Normal [facility] Comment on above: Performed By: #### C MP #### [facility] [address] [address] [address] Belkis Ascencio Patient Educationon 12-22-19 23 [...] serving. ? Talk with a diet and clinical operations specialist (dietitian) if you have questions [...] Bulgur wheat. Millet. Quinoa. Bran muffins. Popcorn. [place] wafer crackers. Meats and other proteins [place], kidney, and aparicio beans. Soybeans. Split peas. [...] Cream cheese. Sour cream. Fats and oils [place]. Beverages Soft drinks. Other foods Cakes and [...] 08/23/2006 Document Revised: 06/27/2018 Document Reviewed: 06/27/2018 [employer] Patient Education ? 2020 [employer] Normal [facility] BUNon 12-19-2022 Urea nitrogen [Mass/Vol] 16.0 mg/dL Normal 7.0-18.0 [facility] Comment on above: Performed By: #### B UN, CREA, LIPID, ELEC #### [facility] [address] [address] [address] Belkis Ascencio CREATININEon 12-19-2022 Creatinine [Mass/Vol] 0.87 mg/dL Normal 0.55-1.02 [facility] Comment on above: Performed By: #### C BC #### [facility] [address] [address] [address] Belkis Ascencio EGFR-AF SENEGALESE >60 Normal >=60 [facility] Comment on above: Performed By: #### C BC #### [facility] [address] [address] [address] Belkis Ascencio EGFR-NON AF SENEGALESE >60 Normal >=60 [facility] Comment on above: Performed By: #### C BC #### [facility] [address] [place] [address] Dr. Belkis Ascencio ELECTROLYTESon 12-19-2022 Anion gap [Moles/Vol] 10.4 mmol/L Normal [facility] Comment on above: Performed By: #### C BC #### [facility] [address] [address] [address] Belkis Ascencio Chloride [Moles/Vol] 105 mmol/L Normal 98-107 [facility] Comment on above: Performed By: #### C BC #### [facility] [address] [place] [address] Dr. Belkis Ascencio CO2 [Moles/Vol] 28.4 mmol/L Normal 21.0-32.0 [facility] Comment on above: Performed By: #### C BC #### [facility] [address] [place] [address] Dr. Belkis Ascencio Potassium [Moles/Vol] 3.8 mmol/L Normal 3.5-5.1 [facility] Comment on above: Performed By: #### C BC #### [facility] [address] [place] [address] Dr. Belkis Ascencio Sodium [Moles/Vol] 140 mmol/L Normal 136-145 [facility] Comment on above: Performed By: #### C BC #### [facility] [address] [place] [address] Dr. Belkis Ascencio LIPID PROFILEon 12-19-2022 CHOL-HDL RATIO NORM SEE BELOW Normal [facility] Comment on above: Result Comment: 3.3 - 4.4 LOW RISK 4.4 - 7.1 AVERAGE RISK 7.1 - 11.0 MODERATE RISK >11.0 HIGH RISK Performed By: #### C BC #### [facility] [address] [place] [address] Dr. Belkis Ascencio Cholesterol [Mass/Vol] 167 mg/dL Normal <=200 [facility] Comment on above: Performed By: #### C BC #### [facility] [address] [address] [address] Belkis Ascencio Cholesterol in HDL [Mass/Vol] 46 mg/dL Normal 40-60 [facility] Comment on above: Performed By: #### C BC #### [facility] [address] [place], [place] [address] Dr. Belkis Ascencio Cholesterol in LDL [Mass/Vol] 107.8 mg/dL Normal [facility] Comment on above: Performed By: #### C BC #### [facility] [address] [address] [address] Belkis Ascencio Cholesterol.total/Eli sterol in HDL [Mass ratio] 3.6 {ratio} Normal [facility] Comment on above: Performed By: #### C BC #### [facility] [address] [place] [address] Dr. Belkis Ascencio HDL NORMAL > or = 60 mg/dl - LOW CARDIOVASCULAR RISK <40 mg/dl - HIGH CARDIOVASCULAR RISK Normal [facility] Comment on above: Performed By: #### C BC #### [facility] [address] [address] [address] Belkis Ascencio LDL CALC NORMAL SEE BELOW Normal [facility] Comment on above: Result Comment: <100 mg/dl OPTIMAL 100 - 129 mg/dl NEAR OR ABOVE OPTIMAL 130 - 159 mg/dl BORDERLINE HIGH 160 - 189 mg/dl HIGH >190 mg/dl VERY HIGH Performed By: #### C BC #### [facility] [address] [address] [address] Belkis Ascencio Triglyceride [Mass/Vol] 66 mg/dL Normal <=150 T [facility] Comment on above: Performed By: #### C BC #### [facility] [address] [address] [address] Belkis Ascencio VLDL CALC 13.2 mg/dL Normal [facility] Comment on above: Performed By: #### C BC #### [facility] [address] [address] [address] Belkis Ascencio GLYCOHEMOGLOBIN A1Con 2022 ADA RECOMMENDATION SEE BELOW Normal [facility] Comment on above: Result Comment: ADA RECOMMENDED LIMIT 4.0 - 6.0 ADA THERAPEUTIC TARGET < 7.0 ACTION SUGGESTED > 7.0 Performed By: #### C BC #### [facility] [address] [place] [address] Dr. Belkis Ascencio Glucose [Mass/Vol] 100 mg/dL Normal [facility] Comment on above: Performed By: #### C BC #### [facility] [address] [address] [address] Belkis Ascencio HbA1c (Bld) [Mass fraction] 5.1 % Normal 4.5-6.2 [facility] Comment on above: Performed By: #### C BC #### [facility] [address] [place] [address] Dr. Belkis Ascencio BUNon 11-05-2022 Urea nitrogen [Mass/Vol] 13.0 mg/dL Normal 7.0-18.0 [facility] Comment on above: Performed By: #### C BC #### [facility] [address] [place] [address] Dr. Belkis Ascencio CHEM 7 PANEL, MANUAL ENTERon 11-05-2022 Blood Urea Nitrogen (BUN), MANUAL ENTER 13 [facility] BUN/CREA RATIO, MANUAL ENTER 13 [facility] CALCIUM (CA), MANUAL ENTER [facility] Carbon Diox(CO2), MANUAL ENTER 30.8 [facility] Chloride (CL), MANUAL ENTER 101 mmol/L [facility] CREATININE, SERUM, MANUAL ENTER 0.74 mg/dL [facility] Comment on above: eGFR>60 GLUCOSE, MANUAL ENTER [facility] MAGNESIUM (MG), MANUAL ENTER [facility] Phosphate (PO4), Manual Enter [facility] POTASSIUM (K+), MANUAL ENTER 3.5 [facility] SODIUM (NA), MANUAL ENTER 135 [facility] CREATININEon 11-05-2022 Creatinine [Mass/Vol] 0.74 mg/dL Normal 0.55-1.02 [facility] Comment on above: Performed By: #### C BC #### [facility] [address] [address] [address] Belkis Ascencio EGFR-AF SENEGALESE >60 Normal >=60 [facility] Comment on above: Performed By: #### C BC #### [facility] [address] [place] [address] Dr. Belkis Ascencio EGFR-NON AF SENEGALESE >60 Normal >=60 [facility] Comment on above: Performed By: #### C BC #### [facility] [address] [address] [address] Belkis Ascencio ELECTROLYTESon 11-05-2022 Anion gap [Moles/Vol] 6.7 mmol/L Normal [facility] Comment on above: Performed By: #### C BC #### [facility] [address] [place] [address] Dr. Belkis Ascencio Chloride [Moles/Vol] 101 mmol/L Normal 98-107 [facility] Comment on above: Performed By: #### C BC #### [facility] [address] [place] [address] Dr. Belkis Ascencio CO2 [Moles/Vol] 30.8 mmol/L Normal 21.0-32.0 [facility] Comment on above: Performed By: #### C BC #### [facility] [address] [place] [address] Dr. Belkis Ascencio Potassium [Moles/Vol] 3.5 mmol/L Normal 3.5-5.1 [facility] Comment on above: Performed By: #### C BC #### [facility] [address] [address] [address] Belkis Ascencio Sodium [Moles/Vol] 135 mmol/L Critically low 136-145 [facility] Comment on above: Performed By: #### C BC #### [facility] [address] [place] [address] Dr. Belkis Ascencio MG MAMM SCREEN 3D LORNA CADon 09-15-2022 MG MAMM SCREEN 3D LORNA CAD Patient: MARIANNA RAMIREZ Exam Date: 09/15/2022 : 1975 Gender:F Ordering : DR. ILANA KUMARI D.O. Admission #: [id number] Family : Order #: [id number] CLICK HERE TO VIEW EXAM RADIOLOGY REPORT [...] lung cancer at age 40. LOCATION: [facility] BREAST COMPOSITION: Heterogeneously dense,which may obscure [...] Conklin M.D. on 09/15/2022 at 14:50 Normal [facility] BUNon 08-14-2022 Urea nitrogen [Mass/Vol] 15.0 mg/dL Normal 7.0-18.0 [facility] Comment on above: Performed By: #### C BRITTANI, TSH, ELEC, BUN #### [facility] [address] [address] [address] Belkis Ascencio CBC AUTO DIFFon 08-14-2022 BASO # 0.0 103/ul Normal 0.0-0.1 [facility] Comment on above: Performed By: #### C BC #### [facility] [address] [address] [address] Belkis Ascencio Basophils/100 WBC (Bld) 0.3 % Normal 0.2-2.0 [facility] Comment on above: Performed By: #### C BC #### [facility] [address] [place] [address] Dr. Belkis Ascencio EO # 0.1 103/ul Normal 0.0-0.7 [facility] Comment on above: Performed By: #### C BC #### [facility] [address] [place] [address] Dr. Belkis Ascencio Eosinophils/100 WBC (Bld) 0.7 % Critically low 0.9-7.0 [facility] Comment on above: Performed By: #### C BC #### [facility] [address] [place] [address] Dr. Belkis Ascencio Erythrocyte distribution width (RBC) [Ratio] 11.4 % Normal 11.0-15.0 [facility] Comment on above: Performed By: #### C BC #### [facility] [address] [place] [address] Dr. Belkis Ascencio Hematocrit (Bld) [Volume fraction] 38.4 % Normal 36.0-48.0 [facility] Comment on above: Performed By: #### C BC #### [facility] [address] [place] [address] Dr. Belkis Ascencio Hemoglobin (Bld) [Mass/Vol] 13.3 g/dL Normal 12.0-16.0 [facility] Comment on above: Performed By: #### C BC #### [facility] [address] [place] [address] Dr. Belkis Ascencio IG # 0.02 10e3/ul Normal 0.00-0.03 [facility] Comment on above: Performed By: #### C BC #### [facility] [address] [place] [address] Dr. Belkis Ascencio IG % 0.2 % Normal 0.0-0.5 [facility] Comment on above: Performed By: #### C BC #### [facility] [address] [place] [address] Dr. Belkis Ascencio LYMPH # 2.1 103/ul Normal 1.2-3.8 [facility] Comment on above: Performed By: #### C BC #### [facility] [address] [address] [address] Belkis Ascencio Lymphocytes/100 WBC (Bld) 23.1 % Normal 20.5-60.0 [facility] Comment on above: Performed By: #### C BC #### [facility] [address] [address] [address] Belkis Ascencio MANUAL DIFF REQ NO Normal [facility] Comment on above: Performed By: #### C BC #### [facility] [address] [place] [address] Dr. Belkis Ascencio MCH (RBC) [Entitic mass] 30.9 pg Normal 26.7-34.0 [facility] Comment on above: Performed By: #### C BC #### [facility] [address] [place] [address] Dr. Belkis Ascencio MCHC (RBC) [Mass/Vol] 34.6 g/dL Normal 29.9-35.2 [facility] Comment on above: Performed By: #### C BC #### [facility] [address] [place] [address] Dr. Belkis Ascencio MCV (RBC) [Entitic vol] 89.1 fL Normal 81.0-99.0 [facility] Comment on above: Performed By: #### C BC #### [facility] [address] [place] [address] Dr. Belkis Ascencio MONO # 0.6 103/ul Normal 0.3-0.8 [facility] Comment on above: Performed By: #### C BC #### [facility] [address] [place] [address] Dr. Belkis Ascencio Monocytes/100 WBC (Bld) 6.8 % Normal 1.7-12.0 [facility] Comment on above: Performed By: #### C BC #### [facility] [address] [place] [address] Dr. Belkis Ascencio NEUT # 6.1 103/ul Normal 1.4-6.5 [facility] Comment on above: Performed By: #### C BC #### [facility] [address] [address] [address] Belkis Ascencio Neutrophils/100 WBC (Bld) 68.9 % Normal 43.0-75.0 [facility] Comment on above: Performed By: #### C BC #### [facility] [address] [place] [address] Dr. Belkis Ascencio Platelet mean volume (Bld) [Entitic vol] 9.4 fL Critically low 9.5-13.5 [facility] Comment on above: Performed By: #### C BC #### [facility] [address] [place] [address] Dr. Belkis Ascencio PLT 305 103/ul Normal 150-450 [facility] Comment on above: Performed By: #### C BC #### [facility] [address] [place] [address] Dr. Belkis Ascencio RBC 4.31 106/ul Normal 4.20-5.40 [facility] Comment on above: Performed By: #### C BC #### [facility] [address] [place] [address] Dr. Belkis Ascencio WBC 8.9 103/ul Normal 4.0-11.0 [facility] Comment on above: Performed By: #### C BC #### [facility] [address] [place] [address] Dr. Belkis Ascencio CREATININEon 08-14-2022 Creatinine [Mass/Vol] 0.73 mg/dL Normal 0.55-1.02 [facility] Comment on above: Performed By: #### C BRITTANI, TSH, ELEC, BUN #### [facility] [address] [place] [address] Dr. Belkis Ascencio EGFR-AF SENEGALESE >60 Normal >=60 [facility] Comment on above: Performed By: #### C BRITTANI, TSH, ELEC, BUN #### [facility] [address] [place] [address] Dr. Belkis Ascencio EGFR-NON AF SENEGALESE >60 Normal >=60 [facility] Comment on above: Performed By: #### C BRITTANI, TSH, ELEC, BUN #### [facility] [address] [address] [address] Belkis Ascencio ELECTROLYTESon 08-14-2022 Anion gap [Moles/Vol] 10.4 mmol/L Normal [facility] Comment on above: Performed By: #### C BRITTANI, TSH, ELEC, BUN #### [facility] [address] [address] [address] Belkis Ascencio Chloride [Moles/Vol] 100 mmol/L Normal 98-107 [facility] Comment on above: Performed By: #### C BRITTANI, TSH, ELEC, BUN #### [facility] [address] [address] [address] Belkis Ascencio CO2 [Moles/Vol] 29.8 mmol/L Normal 21.0-32.0 [facility] Comment on above: Performed By: #### C BRITTANI, TSH, ELEC, BUN #### [facility] [address] [place] [address] Dr. Belkis Ascencio Potassium [Moles/Vol] 4.2 mmol/L Normal 3.5-5.1 [facility] Comment on above: Performed By: #### C BRITTANI, TSH, ELEC, BUN #### [facility] [address] [address] [address] Belkis Ascencio Sodium [Moles/Vol] 136 mmol/L Normal 136-145 [facility] Comment on above: Performed By: #### C BRITTANI, TSH, ELEC, BUN #### [facility] [address] [place] [address] Dr. Belkis Ascencio GLYCOHEMOGLOBIN A1Con 2021 ADA RECOMMENDATION SEE BELOW Normal [facility] Comment on above: Result Comment: ADA RECOMMENDED LIMIT 4.0 - 6.0 ADA THERAPEUTIC TARGET < 7.0 ACTION SUGGESTED > 7.0 Performed By: #### A 1C #### [facility] [address] [place] [address] Dr. Belkis Ascencio Glucose [Mass/Vol] 105 mg/dL Normal [facility] Comment on above: Performed By: #### A 1C #### [facility] [address] [place] [address] Dr. Belkis Ascencio HbA1c (Bld) [Mass fraction] 5.3 % Normal 4.5-6.2 [facility] Comment on above: Performed By: #### A 1C #### [facility] [address] [address] [address] Belkis Ascencio TSHon 08-14-2022 TSH 1.011 uIU/mL Normal 0.358-3.740 [facility] Comment on above: Performed By: #### C BRITTANI, TSH, ELEC, BUN #### [facility] [address] [id number] Belkis Ascencio Urinalysis - DIPSTICKon 03-06 Appearance (U) clougy [employer] Other Bilirubin Ql (U) Negative [employer] Other Color (U) yellow [employer] Other Glucose Ql (U) Negative [employer] Other Hemoglobin Ql (U) moderate [employer] Other Ketones Ql (U) Negative [employer] Other Leukocyte esterase Test strip Ql (U) Negative [employer] Other Nitrite Ql (U) Negative [employer] Other pH (U) 6.0 [pH] [employer] Other Protein Ql (U) Negative [employer] Other Specific gravity (U) [Rel density] 1.025 [employer] Other Urobilinogen (U) [Mass/Vol] wnl [employer] Other Urinalysis - DIPSTICK Nor [employer] Other Urine Cultureon 03-22-2022 Bacteria identified Cx Nom (U) [employer] Other Cardiac echo study Procedure Ordered By: Vickey Mahan on 03-19-2022 Ao peak wilner 1.48 m/s [facility] Work Phone: [facility]: AV LVOT peak gradient 5 mmHg [facility] Work Phone: AV peak gradient 9 mmHG [facility] Work Phone: AV Velocity Ratio 0.76 [facility] Work Phone: ROYAL (continuity Vmax) 2.14 cm2 [facility] Work Phone: ROYAL index (continuity Vmax) 1.28 m/s [facility] Work Phone: Avg e' pk wilner 0.12 m/s [facility] Work Phone: Avg E/e' ratio 6.38 [facility] Work Phone: Body surface area Derived from formula 1.67 m2 [facility] Work Phone: DI (Vmax) 0.76 [facility] Work Phone: E wave decelartion time 246.00 msec O [facility] Work Phone: e' lateral pk wilner 0.1360 m/s [facility] Work Phone: e' lateral pk wilner 0.14 m/s [facility] Work Phone: e' septal pk wilner 0.1110 m/s [facility] Work Phone: e' septal pk wilner 0.11 m/s [facility] Work Phone: E/A ratio 1.39 [facility] Work Phone: E/e' lateral ratio 5.74 [facility] Work Phone: E/e' septal ratio 7.[address] [facility] Work Phone: FS 30 % 28 - 44 % [facility] Work Phone: IVC ostium 1.11 cm [facility] Work Phone: IVS 0.69 cm [facility] Work Phone: LA AREA 2CH 14.80 cm2 [facility] Work Phone: LA ESV SP 2CH (MOD) 37 mL [facility] Work Phone: [facility]: LV Mass Index 52.8 g/m2 [facility] Work Phone: LV RWT 0.24 [facility] Work Phone: LVIDD 4.66 [facility] Work Phone: LVIDS 3.28 cm [facility] Work Phone: LVOT area 2.83 cm2 [facility] Work Phone: LVOT diameter 1.90 cm [facility] Work Phone: LVOT peak wilner 1.12 m/s [facility] Work Phone: LVOT peak VTI 20.60 [facility] Work Phone: LVOT stroke volume 58 cm3 [facility] Work Phone: LVOT stroke volume index 34.96 ml/m2 [facility] Work Phone: MV pk A wilner 0.56 m/s [facility] Work Phone: MV pk E wilner 0.78 m/s [facility] Work Phone: MV stenosis pressure 1/2 time 72.00 ms [facility] Work Phone: MV valve area p 1/2 method 3.06 cm2 [facility] Work Phone: PW 0.56 [facility] Work Phone: Right ventricle end diastolic volume index 50.90 mL/m2 [facility] Work Phone: Right ventricle end systolic volume index 20.36 [facility] Work Phone: RV basal diam 2.97 cm [facility] Work Phone: [facility] EDV 85 [facility]: RV EF 60 % [facility] Work Phone: RV ESV 34 mL [facility] Work Phone: RV long diam 7.97 cm [facility] Work Phone: RV mid diam 2.09 cm [facility] Work Phone: RV S' 13.80 cm/s [facility] Work Phone: Sinus 2.36 [facility] Work Phone: STJ 2.46 cm [facility] Work Phone: Stroke Volume 58 cm/mL [facility] Work Phone: Stroke volume index 35 [facility] Work Phone: TAPSE 2.46 cm [facility] Work Phone: [facility] Work Phone: Cardiac echo study Procedure [...] independent workstation was performed. Imaging system used: [employer]. [facility] Radiology Study observation (narrative) [facility] Urinalysis - AUTOMATEDon Appearance (U) clear [employer] Other Bilirubin Ql (U) Negative [employer] Other Color (U) yellow [employer] Other Glucose Ql (U) Negative [employer] Other Hemoglobin Ql (U) Minim[employer] devices Other Ketones Ql (U) Negative [employer] Other Leukocyte esterase Test strip Ql (U) [employer] Other Nitrite Ql (U) Negative [employer] Other pH (U) 7.0 [pH] [employer] Other Protein Ql (U) Negative [employer] Other Specific gravity (U) [Rel density] 1.010 [employer] Other Urobilinogen (U) [Mass/Vol] 0.2 mg/dL [employer] Other Urinalysis - AUTOMATED No rt [employer] Other Urine Cultureon 03-12-2022 Urine Culture >100,000 [employer] Other Urine Culture <16 Susceptible [employer] Other Urine Culture >16 Resistant [employer] Other Urine Culture <4 Susceptible [employer] Other Urine Culture 4 Susceptible [employer] Other Urine Culture <2 Susceptible [employer] Other Urine Culture <1 Susceptible [employer] Other Urine Culture <0.5 Susceptible [employer] Other Urine Culture <32 Susceptible [employer] Other Urine Culture >8 Resistant [employer] Other Urine Culture <2/38 Susceptible [employer] Other CBC AUTO DIFFon 02-20-2022 BASO # 0.0 103/ul Normal 0.0-0.1 [facility] Comment on above: Performed By: #### C BC #### [facility] [address] [address] [address] Belkis Ascencio Basophils/100 WBC (Bld) 0.4 % Normal 0.2-2.0 [facility] Comment on above: Performed By: #### C BC #### [facility] [address] [address] [address] Belkis Ascencio EO # 0.1 103/ul Normal 0.0-0.7 [facility] Comment on above: Performed By: #### C BC #### [facility] [address] [place] [address] Dr. Belkis Ascencio Eosinophils/100 WBC (Bld) 1.0 % Normal 0.9-7.0 [facility] Comment on above: Performed By: #### C BC #### [facility] [address] [place] [address] Dr. Belkis Ascencio Erythrocyte distribution width (RBC) [Ratio] 11.5 % Normal 11.0-15.0 [facility] Comment on above: Performed By: #### C BC #### [facility] [address] [place] [address] Dr. Belkis Ascencio Hematocrit (Bld) [Volume fraction] 38.8 % Normal 36.0-48.0 [facility] Comment on above: Performed By: #### C BC #### [facility] [address] [place] [address] Dr. Belkis Ascencio Hemoglobin (Bld) [Mass/Vol] 13.2 g/dL Normal 12.0-16.0 [facility] Comment on above: Performed By: #### C BC #### [facility] [address] [place] [address] Dr. Belkis Ascencio IG # 0.01 10e3/ul Normal 0.00-0.03 [facility] Comment on above: Performed By: #### C BC #### [facility] [address] [place] [address] Dr. Belkis Ascencio IG % 0.1 % Normal 0.0-0.5 [facility] Comment on above: Performed By: #### C BC #### [facility] [address] [place] [address] Dr. Belkis Ascencio LYMPH # 1.6 103/ul Normal 1.2-3.8 [facility] Comment on above: Performed By: #### C BC #### [facility] [address] [place] [address] Dr. Belkis Ascencio Lymphocytes/100 WBC (Bld) 22.1 % Normal 20.5-60.0 [facility] Comment on above: Performed By: #### C BC #### [facility] [address] [place] [address] Dr. Belkis Ascencio MANUAL DIFF REQ NO Normal [facility] Comment on above: Performed By: #### C BC #### [facility] [address] [place] [address] Dr. Belkis Ascencio MCH (RBC) [Entitic mass] 31.3 pg Normal 26.7-34.0 [facility] Comment on above: Performed By: #### C BC #### [facility] [address] [place] [address] Dr. Belkis Ascencio MCHC (RBC) [Mass/Vol] 34.0 g/dL Normal 29.9-35.2 [facility] Comment on above: Performed By: #### C BC #### [facility] [address] [place] [address] Dr. Belkis Ascencio MCV (RBC) [Entitic vol] 91.9 fL Normal 81.0-99.0 [facility] Comment on above: Performed By: #### C BC #### [facility] [address] [place] [address] Dr. Belkis Ascencio MONO # 0.6 103/ul Normal 0.3-0.8 [facility] Comment on above: Performed By: #### C BC #### [facility] [address] [place] [address] Dr. Belkis Ascencio Monocytes/100 WBC (Bld) 8.7 % Normal 1.7-12.0 [facility] Comment on above: Performed By: #### C BC #### [facility] [address] [place] [address] Dr. Belkis Ascencio NEUT # 4.8 103/ul Normal 1.4-6.5 [facility] Comment on above: Performed By: #### C BC #### [facility] [address] [place] [address] Dr. Belkis Ascencio Neutrophils/100 WBC (Bld) 67.7 % Normal 43.0-75.0 [facility] Comment on above: Performed By: #### C BC #### [facility] [address] [place] [address] Dr. Belkis Ascencio Platelet mean volume (Bld) [Entitic vol] 9.4 fL Critically low 9.5-13.5 [facility] Comment on above: Performed By: #### C BC #### [facility] [address] [place] [address] Dr. Belkis Ascencio PLT 270 103/ul Normal 150-450 [facility] Comment on above: Performed By: #### C BC #### [facility] [address] [place] [address] Dr. Belkis Ascencio RBC 4.22 106/ul Normal 4.20-5.40 [facility] Comment on above: Performed By: #### C BC #### [facility] [address] [place] [address] Dr. Beliks Ascencio WBC 7.1 103/ul Normal 4.0-11.0 [facility] Comment on above: Performed By: #### C BC #### [facility] [address] [place] [address] Dr. Belkis Ascencio PROF CHEM 8 (BAS METB)on Anion gap [Moles/Vol] 9.0 mmol/L Normal [facility] Comment on above: Performed By: #### C BC #### [facility] [address] [place] [address] Dr. Belkis Ascencio Calcium [Mass/Vol] 8.8 mg/dL Normal 8.5-10.1 [facility] Comment on above: Performed By: #### C BC #### [facility] [address] [place] [address] Dr. Belkis Ascencio Chloride [Moles/Vol] 102 mmol/L Normal 98-107 [facility] Comment on above: Performed By: #### C BC #### [facility] [address] [place] [address] Dr. Belkis Ascencio CO2 [Moles/Vol] 29.2 mmol/L Normal 21.0-32.0 [facility] Comment on above: Performed By: #### C BC #### [facility] [address] [address] [address] Belkis Ascencio Creatinine [Mass/Vol] 0.76 mg/dL Normal 0.55-1.02 [facility] Comment on above: Performed By: #### C BC #### [facility] [address] [address] [address] Belkis Ascencio EGFR-AF SENEGALESE >=60 Normal >=60 [facility] Comment on above: Performed By: #### C BC #### [facility] [address] [address] [address] Belkis Ascencio EGFR-NON AF SENEGALESE >=60 Normal >=60 [facility] Comment on above: Performed By: #### C BC #### [facility] [address] [place] [address] Dr. Belkis Ascencio Glucose [Mass/Vol] 109 mg/dL Critically high 74-106 T [facility] Comment on above: Performed By: #### C BC #### [facility] [address] [place] [address] Dr. Belkis Ascencio Potassium [Moles/Vol] 4.4 mmol/L Normal 3.5-5.1 [facility] Comment on above: Performed By: #### C BC #### [facility] [address] [place] [address] Dr. Belkis Ascencio Sodium [Moles/Vol] 136 mmol/L Normal 136-145 [facility] Comment on above: Performed By: #### C BC #### [facility] [address] [place] [address] Dr. Belkis Ascencio Urea nitrogen [Mass/Vol] 12.0 mg/dL Normal 7.0-18.0 [facility] Comment on above: Performed By: #### C BC #### [facility] [address] [place] [address] Dr. Belkis Ascencio Urea nitrogen/Creatinine [Mass ratio] 15.8 mg/mg Normal [facility] Comment on above: Performed By: #### C BC #### [facility] [address] [place] [address] Dr. Belkis Ascencio Vital Signs Date Time Vital Sign Value Performing Clinician Facility 06-22-2024 13:22-0400 Diastolic blood pressure 51 mm[Hg] Trip Sosa MD Work Phone: [facility] 06-22-2024 13:22-0400 Heart rate 77 /min Trip Sosa MD Work Phone: [facility] 06-22-2024 13:22-0400 Systolic blood pressure 99 mm[Hg] Trip Sosa MD Work Phone: [facility] 06-22-2024 13:21-0400 Body height 157.5 cm Trip Sosa MD Work Phone: [facility] 06-22-2024 13:21-0400 Body mass index (BMI) [Ratio] 27.78 kg/m2 Trip Sosa MD Work Phone: [facility] 06-22-2024 13:21-0400 Body weight 68.9 kg Trip Sosa MD Work Phone: [facility] 06-22-2024 13:21-0400 Respiratory rate 18 /min Trip Sosa MD Work Phone: [facility] 06-22-2024 13:21-0400 SaO2% (BldA) [Mass fraction] 97 % Trpi Sosa MD Work Phone: [facility] 06-22-2024 12:40-0400 Diastolic blood pressure 64 mm[Hg] Justyna Heller APRN-SHAPER SETTER Work Phone: [facility] 06-22-2024 12:40-0400 Heart rate 78 /min Justyna Heller APRN-SHAPER SETTER Work Phone: [facility] 06-22-2024 12:40-0400 Systolic blood pressure 129 mm[Hg] Justyna Heller APRN-SHAPER SETTER Work Phone: [facility] 06-22-2024 11:25-0400 Body height 157.5 cm Justyna HUANG Work Phone: [facility] 06-22-2024 11:25-0400 Body mass index (BMI) [Ratio] 26.7 kg/m2 Justyna Heller APRN-GIANA Work Phone: [facility] 06-22-2024 11:25-0400 Body weight 66.22 kg Justyna Heller APRN-GIANA Work Phone: [facility] 06-08-2024 14:56-0400 Body height 157.5 cm Ever Woodward DO Work Phone: [facility] 06-08-2024 14:56-0400 Body mass index (BMI) [Ratio] 28.17 kg/m2 Ever Woodward DO Work Phone: [facility] 06-08-2024 14:56-0400 Body weight 69.85 kg Ever Woodward DO Work Phone: [facility] 05-24-2024 14:30-0400 Diastolic blood pressure 77 mm[Hg] MD Cj Lazo Work Phone: [facility] 05-24-2024 14:30-0400 Heart rate 98 /min MD Cj Lazo Work Phone: [facility] 05-24-2024 14:30-0400 Respiratory rate 16 /min MD Cj Lazo Work Phone: [facility] 05-24-2024 14:30-0400 SaO2% (BldA) [Mass fraction] 97 % MD Cj Lazo Work Phone: [facility] 05-24-2024 14:30-0400 Systolic blood pressure 124 mm[Hg] MD Cj Lazo Work Phone: [facility] 05-24-2024 12:45-0400 Inhaled oxygen flow rate 2 L/min MD Cj Lazo Work Phone: [facility] 05-24-2024 11:53-0400 Body temperature 98.2 [degF] MD Cj Lazo Work Phone: [facility] 05-24-2024 08:34-0400 Body height 158.12 cm MD Cj Lazo Work Phone: [facility] 05-24-2024 08:34-0400 Body weight 68 kg MD Cj Lazo Work Phone: [facility] 04-13-2024 09:23-0400 Body height 157.48 cm [facility] 04-13-2024 09:23-0400 Body mass index (BMI) [Ratio] 27.2 kg/m2 [facility] 04-13-2024 09:23-0400 Body weight 67.58 kg [facility] 04-13-2024 09:23-0400 Diastolic blood pressure 72 mm[Hg] [facility] 04-13-2024 09:23-0400 Heart rate 89 /min [facility] 04-13-2024 09:23-0400 SaO2% (BldA) [Mass fraction] 99 % [facility] 04-13-2024 09:23-0400 Systolic blood pressure 110 mm[Hg] [facility] 12-20-2023 10:54-0400 Blood Pressure Location [facility] 12-20-2023 10:54-0400 Diastolic blood pressure 60 mm[Hg] [facility] 12-20-2023 10:54-0400 Heart rate 68 /min [facility] 12-20-2023 10:54-0400 Respiratory rate 18 /min [facility] 12-20-2023 10:54-0400 Systolic blood pressure 110 mm[Hg] [facility] 12-10-2023 [id number] Body height 157.48 cm [facility] 12-10-2023 10:28-0400 Body mass index (BMI) [Ratio] 27.6 kg/m2 [facility] 12-10-2023 10:040 Body weight 68.49 kg [facility] 12-10-2023 10:28-040 Diastolic blood pressure 78 mm[Hg] [facility] 12-10-2023 10:28-040 Heart rate 80 /min [facility] 12-10-2023 [id number]:[id number] Systolic blood pressure 115 mm[Hg] [facility] 12-02-2023 14:23-0400 Diastolic blood pressure 67 mm[Hg] Trip Sosa MD Work Phone: [facility] 12-02-2023 14:23-0400 Heart rate 73 /min Trip Sosa MD Work Phone: [facility] 12-02-2023 14:23-0400 Systolic blood pressure 108 mm[Hg] Trip Sosa MD Work Phone: [facility] 12-02-2023 14:21-0400 Body height 157.5 cm rTip Sosa MD Work Phone: [facility] 12-02-2023 14:21-0400 Respiratory rate 18 /min Trip Sosa MD Work Phone: [facility] 12-02-2023 14:21-0400 SaO2% (BldA) [Mass fraction] 97 % Trip Sosa MD Work Phone: [facility] 05-04-2023 12:18-0400 Blood Pressure Location Jessica [facility] 05-04-2023 12:18-0400 Body temperature 97.52 [degF] Jessica Mccraryz [facility] 05-04-2023 12:18-0400 Diastolic blood pressure 75 mm[Hg] Jessica [facility] 05-04-2023 12:18-0400 Heart rate 79 /min Jessica [facility] 05-04-2023 12:18-0400 Systolic blood pressure 110 mm[Hg] Jessica [facility]cc[facility] 04-22-2023 15:37-0400 Diastolic blood pressure 68 mm[Hg] Trip Sosa MD Work Phone: [facility] 04-22-2023 15:37-0400 Heart rate 86 /min Trip Sosa MD Work Phone: [facility] 04-22-2023 15:37-0400 Systolic blood pressure 115 mm[Hg] Trip Sosa MD Work Phone: [facility] 04-22-2023 15:36-0400 Body height 157.5 cm Trip Sosa MD Work Phone: [facility] 04-22-2023 15:36-0400 Body mass index (BMI) [Ratio] 25.02 kg/m2 Trip Sosa MD Work Phone: [facility] 04-22-2023 15:36-0400 Body weight 62.05 kg Trip Sosa MD Work Phone: [facility] 04-22-2023 15:36-0400 Respiratory rate 20 /min Trip Sosa MD Work Phone: [facility] 04-22-2023 15:36-0400 SaO2% (BldA) [Mass fraction] 98 % Trip Sosa MD Work Phone: [facility] 01-13-2023 10:12-0400 Blood Pressure Location Jessica Lopez [facility] 01-13-2023 10:12-0400 Body temperature 97.16 [degF] Jessica Lopez [facility] 01-13-2023 10:12-0400 Diastolic blood pressure 74 mm[Hg] [facility] [facility] 01-13-2023 10:12-0400 Heart rate 71 /min Jessica Lopez [facility] 01-13-2023 10:12-0400 Systolic blood pressure 107 mm[Hg] Jessica Lopez [facility] 12-28-2022 11:05-0400 Blood Pressure Location [facility] 12-28-2022 11:05-0400 Diastolic blood pressure 50 mm[Hg] [facility] 12-28-2022 11:05-0400 Heart rate 75 /min [facility] 12-28-2022 11:05-0400 Mean blood pressure 66 mm[Hg] [facility] 12-28-2022 11:05-0400 Respiratory rate 18 /min [facility] 12-28-2022 11:05-0400 SaO2% (BldA) [Mass fraction] 99 % [facility] 12-28-2022 11:05-0400 Systolic blood pressure 98 mm[Hg] [facility] 12-28-2022 10:55-0400 Blood Pressure Location [facility] 12-28-2022 10:55-0400 Diastolic blood pressure 40 mm[Hg] [facility] 12-28-2022 10:55-0400 Heart rate 82 /min [facility] 12-28-2022 10:55-0400 Mean blood pressure 59 mm[Hg] [facility] 12-28-2022 10:55-0400 Respiratory rate 15 /min [facility] 12-28-2022 10:55-0400 SaO2% (BldA) [Mass fraction] 98 % [facility] 12-28-2022 10:55-0400 Systolic blood pressure 98 mm[Hg] [facility] 12-28-2022 10:50-0400 Blood Pressure Location [facility] 12-28-2022 10:50-0400 Diastolic blood pressure 45 mm[Hg] [facility] 12-28-2022 10:50-0400 Heart rate 70 /min [facility] 12-28-2022 10:50-0400 Mean blood pressure 58 mm[Hg] [facility] 12-28-2022 10:50-0400 Respiratory rate 20 /min [facility] 12-28-2022 10:50-0400 SaO2% (BldA) [Mass fraction] 96 % [facility] 12-28-2022 10:50-0400 Systolic blood pressure 84 mm[Hg] [facility] 12-28-2022 10:41-0400 Body temperature 97.52 [degF] [facility] 12-28-2022 10:39-0400 Respiratory rate 18 /min [facility] 12-28-2022 10:35-0400 Respiratory rate 16 /min [facility] 12-28-2022 10:28-0400 Respiratory rate 18 /min [facility] 12-28-2022 09:55-0400 Body temperature 96.98 [degF] [facility] 12-21-2022 12:45-0400 Blood Pressure [facility] 12-21-2022 12:45-0400 Body temperature 96.98 [degF] [facility] 12-21-2022 12:45-0400 Diastolic blood pressure 77 mm[Hg] [facility] 12-21-2022 12:45-0400 Heart rate 66 /min [facility] 12-21-2022 12:45-0400 Systolic blood pressure 116 mm[Hg] Jessica [facility]aguirremetz [facility] 10-01-2022 14:42-0500 Diastolic blood pressure 66 mm[Hg] Trip Sosa MD Work Phone: [facility] 10-01-2022 14:42-0500 Heart rate 94 /min Trip Sosa MD Work Phone: [facility] 10-01-2022 14:42-0500 Systolic blood pressure 102 mm[Hg] Trip Sosa MD Work Phone: [facility] 10-01-2022 14:40-0500 Body height 157.5 cm Trip Sosa MD Work Phone: [facility] 10-01-2022 14:40-0500 Body mass index (BMI) [Ratio] 27.98 kg/m2 Trip Sosa MD Work Phone: [facility] 10-01-2022 14:40-0500 Body weight 69.4 kg Trip Sosa MD Work Phone: [facility] 10-01-2022 14:40-0500 Respiratory rate 16 /min Trip Sosa MD Work Phone: [facility] 10-01-2022 14:40-0500 SaO2% (BldA) [Mass fraction] 97 % Trip Sosa MD Work Phone: [facility] 03-22-2022 15:50-0400 Body height 157.48 cm Yas Garcia Other [employer] Other 03-22-2022 15:50-0400 Body mass index (BMI) [Ratio] 26.52 kg/m2 Yas Garcia Other [employer] Other 03-22-2022 15:50-0400 Body temperature 97.7 [degF] Yas Garcia Other [employer] Other 03-22-2022 15:50-0400 Body weight 65.77 kg Yas Garcia Other [facility] [employer] Other 03-22-2022 15:50-0400 SaO2% (BldA) [Mass fraction] 97 % Yas Garcia Other [employer] Other 03-19-2022 15:18-0400 Diastolic blood pressure 69 mm[Hg] Trip Sosa MD Work Phone: [facility] 03-19-2022 15:18-0400 Heart rate 76 /min Trip Sosa MD Work Phone: [facility] 03-19-2022 15:18-0400 Systolic blood pressure 120 mm[Hg] Trip Sosa MD Work Phone: [facility] 03-19-2022 15:17-0400 Body height 157.5 cm Trip Sosa MD Work Phone: [facility] 03-19-2022 15:17-0400 Body mass index (BMI) [Ratio] 27.25 kg/m2 Trip Sosa MD Work Phone: [facility] 03-19-2022 15:17-0400 Body weight 67.59 kg Trip Sosa MD Work Phone: [facility] 03-19-2022 15:17-0400 Respiratory rate 16 /min Trip Sosa MD Work Phone: [facility] 03-19-2022 15:17-0400 SaO2% (BldA) [Mass fraction] 97 % Trip Sosa MD Work Phone: [facility] 03-19-2022 14:02-0400 Body height 157.5 cm Justyna Heller REINA Work Phone: [facility] 03-19-2022 14:02-0400 Body mass index (BMI) [Ratio] 26.65 kg/m2 Justyna HUANG Work Phone: [facility] 03-19-2022 14:02-0400 Body weight 66.1 kg Justyna HUANG Work Phone: [facility] 03-19-2022 14:02-0400 Diastolic blood pressure 67 mm[Hg] Justyna HUANG Work Phone: [facility] 03-19-2022 14:02-0400 Systolic blood pressure 136 mm[Hg] Justyna HUANG Work Phone: [facility] 03-12-2022 18:40-0400 Body height 157.48 cm Denise Catherine Other [employer] Other 03-12-2022 18:40-0400 Body mass index (BMI) [Ratio] 26.52 kg/m2 Denise Catherine Other [employer] Other 03-12-2022 18:40-0400 Body temperature 97.9 [degF] Denise Catherine Other [employer] Other 03-12-2022 18:40-0400 Body weight 65.77 kg Denise Catherine Other [employer] Other 03-12-2022 18:40-0400 Diastolic blood pressure 71 mm[Hg] Denise Catherine Other [employer] Other 03-12-2022 18:40-0400 Respiratory rate 16 /min Denise Alexander Other [employer] Other 03-12-2022 18:40-0400 SaO2% (BldA) [Mass fraction] 99 % Denise Alexander Other [employer] Other 03-12-2022 18:40-0400 Systolic blood pressure 124 mm[Hg] Denise Alexander Other [employer] Other Encounters Encounter Date Encounter Type Care Provider Facility Start: 06-27-2024 ambulatory VIKKI Vicentei ty:[facility] Start: 06-22-2024 End: 06-22-2024 Office outpatient visit 15 minutes Trip Sosa MD Work Phone: [facility] Comment on above: Cardiac microvascula r disease (Primary Dx) Start: 06-22-2024 ambulatory CJ LAZO Facility:[facility] Start: 06-22-2024 End: 06-22-2024 Subsequent hospital visit by physician Justyna Heller APRN-SHAPER SETTER Work Phone: Cardiovascular Imaging Lab [facility] Comment on above: Arrived Start: 06-08-2024 End: 06-08-2024 Postop follow up visit related to original px Ever Woodward DO Work Phone: [facility] Comment on above: Follicular thyroid c arcinoma (CMS/HCC) (Primary Dx) Start: 06-08-2024 End: 06-08-2024 ambulatory EVER WOODWARD Not Available Start: 06-08-2024 End: 06-08-2024 Bamboo flowsheet Ever Woodward DO Work Phone: [facility] Start: 06-08-2024 End: 06-08-2024 Bamboo flowsheet Ever Woodward DO Work Phone: [facility] Start: 06-01-2024 End: 06-01-2024 ambulatory EVER WOODWARD Not Available Start: 05-24-2024 End: 05-24-2024 Admission to same day surgery center MD Cj Lazo Work Phone: [facility] [place] Start: 05-24-2024 End: 05-24-2024 ambulatory MD Cj Lazo Work Phone: [facility] Work Phone: Start: 05-17-2024 End: 05-17-2024 Patient encounter procedure MD Cj Lazo Work Phone: [facility] Work Phone: Start: 05-17-2024 End: 05-17-2024 ambulatory MD Cj Lazo Work Phone: [facility] Work Phone: Start: 05-05-2024 End: 05-05-2024 ambulatory EVER WOODWARD Not Available Start: 04-19-2024 ambulatory [facility] Work Phone: Start: 04-19-2024 Non-patient / Non-visit [facility] Physician [facility] Work Phone: Start: 04-13-2024 End: 04-13-2024 ambulatory [facility] Work Phone: Start: 04-13-2024 End: 04-13-2024 [facility]: Start: 12-20-2023 End: 12-21-2023 ambulatory Stratton Talal Sarmini Facility:[facility] Start: 12-20-2023 End: 12-20-2023 Patient encounter procedure Strat[place] Talal Sarmini [facility] Start: 12-10-2023 End: 12-10-2023 ambulatory [facility] Work Phone: Start: 12-10-2023 End: 12-10-2023 Patient encounter procedure [facility] Work Phone: Start: 12-02-2023 End: 12-02-2023 Office outpatient visit 15 minutes Trip Sosa MD Work Phone: [facility] Comment on above: Cardiac microvascula r disease (Primary Dx) Start: 12-02-2023 ambulatory CJ LAZO Facility:[facility] Start: 11-04-2023 End: 11-05-2023 ambulatory Jessica Lopez Facility[facility] Start: 11-04-2023 End: 11-04-2023 Patient encounter procedure Jessica Lopez [facility] Start: 10-29-2023 Telephone encounter Alicia baumann MD Work Phone: [facility] Comment on above: Provider Question Start: 10-25-2023 Telephone encounter Alicia baumann MD Work Phone: [facility] Comment on above: Symptoms Vascular malformatio n (Primary Dx); Congenital vascular anomaly Start: 10-07-2023 End: 10-07-2023 ambulatory ILANA KUMARI Not Available Start: 05-04-2023 End: 05-05-2023 ambulatory Jessica Lopez Facility:[facility] Start: 05-04-2023 End: 05-04-2023 Patient encounter procedure Jessica Lopez [facility] Start: 04-22-2023 End: 04-23-2023 Office outpatient visit 15 minutes Trip Sosa MD Work Phone: [facility] Comment on above: Other cardiomyopathy (Primary Dx); Palpitations Start: 04-12-2023 Telephone encounter Alicia baumann MD Work Phone: [facility] Comment on above: Question and update Start: 01-13-2023 End: 01-14-2023 ambulatory Jessica Lopez [facility] Start: 01-13-2023 End: 01-13-2023 Patient encounter procedure Jessica Lopez [facility] Start: 12-28-2022 End: 12-29-2022 ambulatory Petty AMBROSE Facility:[facility] Start: 12-28-2022 End: 12-28-2022 Patient encounter procedure [facility]ty [facility] Start: 12-22-2022 End: 12-23-[address] DOCTOR HENAO Facility:[facility] Start: 12-21-2022 End: 12-22-[address] PADRON MISC Facility:[facility] Start: 12-21-2022 End: 12-22-2022 ambulatory Jessica Lopez Facility:[facility] Start: 12-21-2022 End: 12-21-2022 Patient encounter procedure Jessica Lopez [facility] Start: 12-19-2022 End: 12-20-[address] DOCTOR HENAO Facility:[facility] Start: 11-19-2022 End: 11-20-[address] DOCTOR ROGERSC Facility:[facility] Start: 11-14-2022 Orders Only Alicia Bolivar MD Work Phone: [facility] Comment on above: Developmental venous anomaly (Primary Dx) Start: 11-06-2022 ambulatory Kia Colin RN [facility] Start: 11-05-2022 End: 11-06-[address] DOCTOR HENAO Facility:[facility] Start: 10-01-2022 End: 10-01-2022 Office outpatient visit 15 minutes Trip Sosa MD Work Phone: Network Coordinator [facility] Comment on above: Other cardiomyopathy (Primary Dx) Start: 09-15-2022 End: 09-16-[address] CJ LAZO Facility:[facility] Start: 08-14-2022 End: 08-15-[address] DOCTOR HENAO Facility:[facility] Start: 03-24-2022 End: 03-24-2022 ambulatory Yas Garcia Other [employer] Other Start: 03-24-2022 Telephone encounter Yas Garcia [facility] Start: 03-22-2022 End: 03-22-2022 ambulatory Yas Garcia Other [employer] Other Start: 03-22-2022 Office outpatient vi sit 15 minutes Yas Garcia [facility] Start: 03-19-2022 End: 03-19-2022 Office outpatient visit 15 minutes Trip Sosa MD Work Phone: [facility] Comment on above: Cardiac syndrome X ( Primary Dx); Palpitations Start: 03-19-2022 End: 03-19-2022 Subsequent hospital visit by physician Justyna Heller CLOTH BLEACHING RANGE OPERATOR CHIEF-SHAPER SETTER Work Phone: Cardiovascular Imaging [facility] Comment on above: Arrived Start: 03-12-2022 End: 03-12-2022 Departed Referred SEO SPECIALIST-C Denise Alexander Work Phone: [facility] [place] Start: 03-12-2022 End: 03-12-2022 ambulatory Denise Alexander Other [employer] Other Start: 03-12-2022 Office outpatient ne w 20 minutes Denise Alexander [facility] Start: 02-20-2022 End: 02-21-[address] PADRON [facility] Procedures Date Procedure Procedure Detail Performing Clinician Start: 06-22-2024 Cta hrt cornry art/bypass grfts contrst 3d post Justyna Heller CLOTH BLEACHING RANGE OPERATOR CHIEF-SHAPER SETTER Work Phone: Start: 05-24-2024 SARS-CoV-2, Influenza & RSV (PCR) MD Blessing Lazo Work Phone: Start: 05-24-2024 Lobectomy of thyroid gland MD Cj killian Work Phone: Start: 09-17-2023 Mammography Ever Crissy DO Work Phone: Start: 12-28-2022 Esophagogastroduodenoscopy [facility] Comment on above: esophageal dilation; multiple stomach bi opsies Start: 12-19-2022 Lipid 1996 panel - Serum or Plasma Jamel Sosa MD Work Phone: Start: 11-05-2022 CHEM 7 PANEL, MANUAL ENTER Historical Provider Start: 03-19-2022 Echo tthrc r-t 2d w/wom-mode compl spec&colr d Justyna Heller CLOTH BLEACHING RANGE OPERATOR CHIEF-SHAPER SETTER Work Phone: Start: 03-12-2022 Piperacillin/tazobactam Denise valle Other Start: 09-18-2021 Lipid 1996 panel - Serum or Plasma Justyna Maldonadoaaron CLOTH BLEACHING RANGE OPERATOR CHIEF-SHAPER SETTER Work Phone: Start: 09-27-2020 Colonoscopy Ever Woodward DO Work Phone: Start: 09-27-2020 Colonoscopy Jessica Lopez Esophagogastroduoden oscopy gastric outlet reduction Jessica Lopez Plan of Treatment Date Care Activity Detail Author Start: 09-27-2030 Screening for malign ant neoplasm of colon [facility] Start: 10-07-2028 Screening for malign ant neoplasm of cervix [facility] Start: 12-20-2027 Lipid panel LIPID SCREENING [facility] Start: 09-18-2026 Fasting lipid profile LIPID SCREENIN G [facility] Start: 09-18-2026 Lipid panel LIPID SCREENING [facility] Start: 01-05-2026 Tetanus vaccination TETANUS [facility] Start: 01-05-2026 Urine microalbumin profile DTaP,Tdap,Td Vaccine (2 - Td or Tdap) [facility] Start: 12-29-2024 End: 12-29-2024 Patient encounter procedure 12/29/2024 9:00 AM EDT Office Visit [facility] [address] [place] [address] Ever Woodward, DO [address] [facility] [place] [address] [facility] Start: 12-21-2024 End: 12-21-2024 Patient encounter procedure 12/21/2024 1:45 PM EDT Office Visit [facility] [address] [place] [address] Trip Sosa MD [address] [place] [phone] [facility] Start: 10-31-2024 End: 10-31-2024 Patient encounter procedure 10/31/2024 10:45 AM EST Office Visit [facility] [address] [place] [address] Ilana uKmari, DO [address] [place] [address] [facility] Start: 09-18-2024 Diabetes Screening Diabetes Screenin g [facility] Start: 09-17-2024 Screening for malign ant neoplasm of breast Mammogram [facility] Start: 06-08-2024 End: 06-08-2024 Patient encounter procedure [facility] Comment on above: Arrived Start: 05-24-2024 [facility] Start: 05-24-2024 [facility] Start: 05-07-2024 COVID-19 VACCINE ( season) COVID-19 VACCINE ( season) [facility] Start: 05-07-2024 Influenza vaccination Influenza Vacc ine (#1) [facility] Start: 04-19-2024 Patient referral [facility] Work Phone: Start: 12-10-2023 Patient referral [facility] Work Phone: Start: 11-04-2023 End: 11-04-2023 Patient encounter procedure 11/04/2023 3:15 PM EST Office Visit [facility] [address] [place] [phone] Trip Sosa MD [address] [place] [phone] [facility] Start: 09-22-2023 Screening for malign ant neoplasm of breast MAMMOGRAM SCREENING DISCUSSION [facility] Start: 09-06-2023 Depression Assessment Depression Ass essment [facility] Start: 06-06-2023 End: 12-14-2023 Mri brain brain stem w/o w/contrast material MRI BRAIN WO/W IVCON Radiology Routine Developmental venous anomaly Expected: 06/06/2023 (Approximate), Expires: 12/14/2023 [facility] Work Phone: Comment on above: Expected: 06/06/2023 (Approximate), Expires: 12/14/2023 Start: 05-07-2023 COVID-19 VACCINE ( season) COVID-19 VACCINE ( season) [facility] Start: 05-07-2023 Influenza vaccination C [facility] Start: 04-22-2023 End: 04-22-2023 Patient encounter procedure 04/22/2023 Office Visit Cardiovascular Medicine Trip Sosa MD [address] [place] [phone] [facility] Start: 10-01-2022 End: 10-01-2022 Patient encounter procedure 10/01/2022 Office Visit Cardiovascular Medicine Trip Sosa MD [address] [place] [phone] [facility] Start: 09-06-2022 DEPRESSION ASSESSMENT DEPRESSION ASS ESSMENT [facility] Start: 05-07-2022 Influenza vaccination O [facility] Start: 03-12-2022 Bacteria identified in Urine by Culture Urine Culture [facility] Start: 02-16-2021 DIABETES SCREEN DIABETES SCREEN [facility] Start: 12-17-2020 DIABETES SCREEN DIABETES SCREEN [facility] Start: 2020 COLOGUARD (FIT-DNA) COLOGUARD (FIT-D NA) [facility] Start: 2020 Colonoscopy [facility] Start: 2020 COLORECTAL CANCER SCREENING COLORECTAL CANCER SCREENING [facility] Start: [address] COLONOGRAPHY [facility] Start: 2020 FECAL OCCULT BLOOD FECAL OCCULT BLOO D [facility] Start: 2020 LIPID SCREEN LIPID SCREEN [facility] Start: 2020 Screening for malign ant neoplasm of colon [facility] Start: 2020 SIGMOIDOSCOPY SIGMOIDOSCOPY [facility] Start: [address] [facility] Start: 2015 Screening for malign ant neoplasm of breast [facility] Start: 2015 Screening mammography MAMMOGRA M SCREENING DISCUSSION [facility] Start: 2005 HPV TESTING HPV TESTING [facility] Start: 2005 Screening for malign ant neoplasm of cervix HPV Testing [facility] Start: 1996 PAP TESTING PAP TESTING [facility] Start: 1996 Screening for malign ant neoplasm of cervix [facility] Start: 1994 Third diphtheria, tetanus and acellular pertussis (DTaP) vaccination TDAP (ADULT) [facility] Start: 1994 Urine microalbumin profile DTAP,TDAP,TD (1 - Tdap) [facility] Start: 1993 HIV SCREENING HIV SCREENING [facility] Start: 1993 HIV screening HIV Screening [facility] Start: 1993 Tetanus vaccination TETANUS [facility] Start: 1990 HIV screening HIV SCREENING DISCUSSI ON [facility] Start: 1975 COVID-19 VACCINE (#1) COVID-19 VACCI NE (#1) [facility] Start: 1975 HEPATITIS B (1 of 3 - 3-dose series) HEPATITIS B (1 of 3 - 3-dose series) [facility] Start: 1975 Hepatitis C antibody , confirmatory test HEPATITIS C VIRUS SCREENING [facility] Start: 1975 Hepatitis C screening HEPATITI S C VIRUS SCREENING [facility] Start: 1975 Screening for malign ant neoplasm of colon [facility] Start: 1975 Tetanus vaccination TETANUS [facility] Bacteria identified in Urine by Culture [facility] Work Phone: End: 11-23-2024 MR Brain WO contrast MRI BRAIN WO IVCON Radiology Routine Vascular malformation Congenital vascular anomaly 1 Occurrences starting 10/25/2023 until 11/23/2024 [facility] Work Phone: Comment on above: 1 Occurrences starti ng 10/25/2023 until 11/23/2024 Patient Education Know your Meds [facility] Work Phone: Patient referral [facility] Work Phone: Thyroid gland [facility] XR Lumbar spine 2 or 3 Views [facility] Immunizations Immunization Date Immunization Notes Care Provider Candy garcia 07-09-2016 hepatitis A and hepatitis B vaccine Jessica Lopez [facility] 02-04-2016 hepatitis A and hepatitis B vaccine Jessica Lopez [facility] 01-06-2016 hepatitis A and hepatitis B vaccine Jessica Lopez [facility] 01-06-2016 tetanus toxoid, reduced diphtheria toxoid, and acellular pertussis vaccine, adsorbed Jessica Lopez [facility] 01-06-2016 typhoid vaccine, unspecified formulation Jessica Lopez [facility] NEGATED: Highlighted row has not occurred!11-03-2023 influenza virus vaccine, unspecified formulation Jessica Lopez [facility] Payers Date Payer Category Payer Unknown [id number] 1975 Unknown [id number] 2.16.84 [id number] 1975 Unknown [id number] 2.16.84 0.1.411198.3.579.2.593 1975 Unknown [id number] 2.16.84 0.1.890463.3.579.2.593 1975 Unknown [id number] 2.16.84 0.1.706473.3.579.2.593 1975 Unknown [id number] 2.16.84 0.1.987816.3.579.2.593 1975 Unknown [id number] 2.16.84 0.1.951837.3.579.2.593 1975 Unknown [id number] 2.16.84 0.1.466559.3.579.2.593 1975 Unknown [id number] 2.16.84 0.1.965127.3.579.2.593 1975 Unknown [id number] 2.16.8 40.1.083078.3.579.2.727 1975 Unknown [id number] 2.16.8 40.1.207752.3.579.2.727 1975 Unknown [id number] 2.16.8 40.1.087697.3.579.2.727 1975 Unknown [id number] 2.16.8 40.1.174262.3.579.2.727 1975 Unknown [id number] 2.16.8 40.1.073490.3.579.2.727 1975 Unknown [id number] 2.16.8 40.1.241893.3.579.2.727 1975 Unknown [id number] 2.16.84 0.1.231573.3.579.2.1259 1975 Unknown [id number] 2.16.84 0.1.206921.3.579.2.1259 1975 Unknown [id number] 2.16.84 0.1.861064.3.579.2.1259 1975 Unknown [id number] 2.16.84 0.1.066749.3.579.2.1259 1975 Unknown [id number] 2.16. 840.1.192783.3.579.2.594 1975 Unknown [id number] 2.16. 840.1.749860.3.579.2.594 1975 Unknown [id number] 2.16. 840.1.373582.3.579.2.594 1975 Unknown [id number] 2.16. 840.1.474435.3.579.2.594 1959 Unknown [id number] 2. [id number] Self-pay Self Pay [id number] Social History Date Type Detail Facility Tobacco smoking stat [facility] Unknown if ever smoked [facility] Work Phone: Start: 1975 Sex Assigned At Female F [facility] Start: 06-21-2018 End: 04-22-2023 Sex Assigned At [facility] Start: 03-20-2021 End: 04-22-2023 Tobacco smoking status NHIS Never smoked tobacco [facility] Start: 03-20-2021 End: 04-22-2023 Tobacco use and exposure Smokeless tobacco non-user [facility] Start: 03-19-2022 End: 06-22-2024 Alcohol intake Current non-drinker of alcohol (finding) [facility] Start: 03-19-2022 End: 04-22-2023 Alcohol intake [facility] Start: 1975 Sex Assigned At Not on file [facility] Start: 09-21-2022 End: 10-01-2022 Exposure to SARS-CoV-2 (event) Not sure [facility] Start: 06-21-2018 Alcohol intake Not [facility] Tobacco smoking status Never [facility] Gender identity Identifies as fe male gender (finding) [facility] Start: 06-01-2024 End: 06-08-2024 Alcoholic beverage intake Lifetime non-drinker (finding) [facility] Start: 10-05-2023 Alcohol Comment Caffeine intak e: 1-2 cups per day chocolate [facility] Goals Date Patient Goal Desired Activity /State Functional Status Date Assessment Result Facility 12-20-2023 Functional Status N/A [facility] 05-04-2023 Functional Status N/A [facility] 01-13-2023 Functional Status N/A [facility] 12-28-2022 Functional Status N/A [facility] 12-21-2022 Functional Status N/A [facility] Clinical Notes 03-12-2022 to 06-22-2024 Mario Pascal RN - 06/22/2024 1:15 PM EDREINA Harrell - 06/22/2024 1:15 PM Vania Sosa MD - 06/22/2024 1:15 PM EDTPatilibia Pascal RN - 12/02/2023 2:15 PM EDT Note Date & Type Note Facility 06-22-2024 History of Present illness Narrative Patient Education Patient education regarding the following topic(s) was provided on 06/22/2024: plan of care . Those in attendance [...] your patient, Marianna Ramirez who is a 49 y.o. female who presents to the [facility] for follow-up of HFrEF (post ) w/ recovered EF and microvascular disease. Today, the patient denies any recent emergency room visits or hospitalizations. Here with her , John. Had CT angiogram today secondary to worsening symptoms including SOB w/ exertion (has been unable to exercise), fatigue. Feels SOB has progressed and at times w/ ADLs. Some days it is better than others. Steps typically the worst-feels muscles were tired. With recent surgery (took left side/half of thyroid, has close follow up) has been unable to go to the chiropractor for at least the last month so wonders if something is out of place that could be worsening her SOB. On follow up today she denies palpitations, near-syncope, syncope, orthopnea, paroxysmal nocturnal dyspnea, claudication, lower extremity edema. she has been able to take all medications as prescribed, and is closely monitoring sodium intake. 10 point ROS is negative except as noted above. Family/Social medical history reviewed in EMR. Current Outpatient Medications Medication Sig amLODIPine (Norvasc) 2.5 MG tablet Take 1 tablet by mouth daily. carveDILOL 25 MG tablet Take 2.5 tablets by mouth 2 times daily with meals. Cetirizine 10 MG tablet Take 1 tablet by mouth daily as needed. Metoprolol 50 MG tab regular release Take one tablet by mouth, 1-[address] time Wheat Dextrin (BENEFIBER PO) Take 1 Dose by mouth. Powder that pt takes once a day predniSONE 50 MG tablet Prednisone 50 mg by mouth 13 hr, 7 hr, and 1 hr prior to contrast (Patient not taking: Reported on 06/22/2024) Objective Review of Systems Vitals: Blood pressure 99/51, pulse 77, resp. rate 18, height 1.575 m (5' 2 ), weight 68.9 kg (151 lb 14.4 oz), SpO2 97%. Body mass index is 27.78 kg/m . Wt Readings from Last 3 Encounters: 06/22/24 68.9 kg (151 lb 14.4 oz) 06/22/24 66.2 kg (146 lb) 04/22/23 62.1 kg (136 lb 12.8 oz) Physical Exam Constitutional: General: [...] -Continue Coreg 62.5mg twice a day with food, norvasc 2.5mg daily -CT angio with coronary pending -update us with BP/HR in two weeks, may further titrate norvasc to help improve symptoms -Recent echo above with normal EF, no valvular disease. 2. HLD -much improved with lifestyle changes (weight loss/diet). Great job! Defer statin at this time and will continue to closely monitor. Recheck at follow up. Lab Results Component Value Date CHOLESTEROL 167 [...] conjunction with Dr. Sosa. Patient seen with LINE THERAPIST I saw and personally examined this patient with the nurse practitioner. The patient complains of worsening shortness of breath with exertion and is compensated on examination. Results of CT angiogram are pending. She has microvascular CAD. We will continue the current treatment plan, as outlined in the LINE THERAPIST note, and consider increasing amlodipine dose if possible. The plan was developed mutually at the time of the clinic visit. The nurse practitioner and I spoke with the patient and provided written and verbal instructions for the patient. The note has been reviewed and I agree with the assessment and plan. Follow up arrangements were made prior to the patient being discharged from the clinic. documented in this encounter [facility] 06-22-2024 Instructions Justyna Heller, CLOTH BLEACHING RANGE OPERATOR CHIEF-SHAPER SETTER - 06/22/2024 1:15 PM EDT The following instructions were given today: -check your blood pressure/heart rates daily for the next few weeks and send a mychart update with the numbers. Will consider increasing the amlodipine. -we will let you know the results of the CT once it has been read. Your after visit summary (AVS) is viewable in [facility] My Chart. Call RN if you have cardiac questions/concerns M-F 8 to 4:30 ; office # [phone], option 6, then option 2. Guidelines for home management: 1. Continue to monitor weight first thing each morning. 2. Report to the CHF CLINIC ([phone]) any significant weight change. Remember that weight [...] to have labs/tests run outside of the [facility] and you do not hear from us 1-2 days after they are performed, you must call us to ensure we received the results. Office fax # [phone]. No news does not necessarily mean that your tests are normal, it could mean we did not get the results. For questions/updates: please provide your name with spelling, date of and question or update All calls are prioritized and responses researched, if possible, prior to calls being returned. Call Scheduling for any appointment/procedure verification or changes [phone], option 7 or [facility] Heart Schedulers at [phone], option 1. documented in this encounter [facility] 06-08-2024 History of Present illness Narrative Subjective Patient ID: Marianna Ramirez is a 49 y.o. female who presents for Post-op (Check incision) HPI This patient presents for recheck of her neck incision. Did notice a portion of suture on the left side. Recent onset of discomfort with some pulling of her left arm by her dog. Review of Systems Patient denies any difficulties with swallowing or voice. Has noticed a small area of suture present on the left side of her incision. The rest of her review of systems is unchanged. Objective ENT Physical Exam Examination of her incision reveals to be intact. A portion of Monocryl is removed from the left lateral aspect of the incision. She continues to heal up very nicely. Assessment/Plan Diagnoses and all orders for this visit: Follicular thyroid carcinoma (CMS/HCC) Comments: We will see the patient as scheduled. We will await the results of her thyroid functions. documented in this encounter [facility] 04-19-2024 Hospital Discharge instructions Ambulatory OrdersReferral to ENT Time Frame: 04/19/24, Location: None [facility] Work Phone: 12-03-2023 Hospital Discharge instructions Follow Up Care 12/03/2023 15:41:19 With:Luis CLINE, GAIL Pappas, [facility] Address: [address] [place] [address], [facility] [address] [phone]- [phone] When:3 months [facility] 12-02-2023 History of Present illness Narrative Patient Education Patient education regarding the following topic(s) was provided on 12/02/2023: plan of care . Those in attendance for the education included: patient and spouse. Barriers in providing the education included: none. The following methods were used in providing the education: explanation and handout. [facility] handouts given included: After visit summary. The [...] conjunction with Dr. Sosa. Patient seen with LINE THERAPIST I saw and personally examined this patient with the nurse practitioner. The patient is generally doing well and is compensated on examination. Her complaints seem referable to the gastrointestinal and skeletal muscle systems. We recommended she follow-up was a director of anesthesia services and a squad sergeant, the latter especially given the strong family history of rheumatological disorders (RA, lupus). Otherwise, we will continue the current treatment plan, as outlined in the LINE THERAPIST note. The plan was developed mutually at the time of the clinic visit. The nurse practitioner and I spoke with the patient and provided written and verbal instructions for the patient. The note has been reviewed and I agree with the assessment and plan. Follow up arrangements were made prior to the patient being discharged from the clinic. documented in this encounter [facility] 12-02-2023 Instructions REINA Erickson - 12/02/2023 2:15 PM EDT The following instructions were given today: -follow up with rheumatology and gastroenterology Your after visit summary (AVS) is viewable in [facility] My Chart. Call RN if you have cardiac questions/concerns M-F 8 to 4:30 ; office # [phone], option 6, then option 2. Guidelines for home management: 1. Continue to monitor weight first thing each morning. 2. Report to the CHF CLINIC ([phone]) any significant weight change. Remember that weight [...] to have labs/tests run outside of the [facility] and you do not hear from us 1-2 days after they are performed, you must call us to ensure we received the results. Office fax # [phone]. No news does not necessarily mean that your tests are normal, it could mean we did not get the results. For questions/updates: please provide your name with spelling, date of and question or update All calls are prioritized and responses researched, if possible, prior to calls being returned. Call Scheduling for any appointment/procedure verification or changes [phone], option 7 or [facility] Schedulers at [phone], option 1. documented in this encounter [facility] 10-29-2023 Miscellaneous Notes CV PHONE Name of caller : Avis Relationship to patient : [facility] If not self Will need patient permission to release results or disclose health information with called documented in fyi. Patient identified by Name and Date of . ( Marianna Ashley, 1975). Yes Number to return call [phone] Reason for Call: Avis is calling from [facility] to obtain notes and information for prior Auth of MRI WO IVCON. Sent: Thank you calling [facility] [place]. You will receive a return call within 48 hours ( or 2 business days if close to the weekend). If you feel that this is an urgent issue and needs immediate attention, it is recommended that you contact your primary care provider office or proceed to your nearest Urgent Care Center of Emergency Room ED for evaluation/treatment. documented in this encounter [facility] 10-25-2023 Miscellaneous Notes Called patient. She also [...] Ramirez, 1975). Yes Number to return call [phone] Reason for Call: Symptoms Call: Symptoms: headache [...] something else going on. Thank you calling [facility] [place]. You will receive a return call within 48 hours ( or 2 business days if close to the weekend). If you feel that this is an urgent issue and needs immediate attention, it is recommended that you contact your primary care provider office or proceed to your nearest Urgent Care Center of Emergency Room ED for evaluation/treatment. documented in this encounter [facility] 05-04-2023 Hospital Discharge instructions Patient Education 05/04/2023 [...] grapefruit, pineapple, and jeff. Vegetables Deep-fried vegetables. Citizen Of [place] fries. Any vegetables prepared with added fat. [...] provider. Document Revised: 03/03/2021 Document Reviewed: 03/03/2021 [employer] Patient Education 2022 Viratech. Follow Up Care 01/28/2023 14:16:26 With:Jessica Lopez CNP Address: When:6 months [facility] 04-22-2023 History of Present [...] week and HR fluctuating/palpitatations (refer to 03/31/23 [employer] message for detailed symptoms). Continues to go [...] function. No fibrosis or infarct scar. Echo 3/12/18: Conclusions 1. The left ventricular chamber size [...] conjunction with Dr. Sosa. Patient seen with LINE THERAPIST I saw and personally examined this patient with the nurse practitioner. The patient complains of increased palpitations.Both her resting and exercise heart rates have risen over the past several weeks.She is compensated on examination. We will increase the dose of carvedilol and otherwise continue the current treatment plan, as outlined in the LINE THERAPIST note. The plan was developed mutually at the time of the clinic visit. The nurse practitioner and I spoke with the patient and provided written and verbal instructions for the patient. The note has been reviewed and I agree with the assessment and plan. Follow up arrangements were made prior to the patient being discharged from the clinic. documented in this encounter [facility] 04-22-2023 Instructions Cecilia Spencer RN - 04/22/2023 3:45 PM EDT The following instructions were given today: -Increase Coreg to 1.5 tablets (37.5mg) twice a day with food. -Follow up with Dr. Sosa in 6 months. Your after visit summary (AVS) is viewable in [facility] My Chart. Call RN if you have cardiac questions/concerns M-F 8 to 4:30 ; office # [phone], option 6, then option 2. Guidelines for home management: 1. Continue to monitor weight first thing each morning. 2. Report to the CHF CLINIC ([phone]) any significant weight change. Remember that weight [...] to have labs/tests run outside of the [facility] and you do not hear from us 1-2 days after they are performed, you must call us to ensure we received the results. Office fax # [phone]. No news does not necessarily mean that your tests are normal, it could mean we did not get the results. For questions/updates: please provide your name with spelling, date of and question or update All calls are prioritized and responses researched, if possible, prior to calls being returned. Call Scheduling for any appointment/procedure verification or changes [phone], option 7 or [facility] Schedulers at [phone], option 1. documented in this encounter [facility] 04-14-2023 Miscellaneous Notes Called patient. She [...] Ramirez, 1975). Yes Number to return call [phone] Reason for Call: Patient Question/Update: Marianna is calling to say she developed an allergy to contrast and cannot have MRI W/WO. Also she would like to know if she can have it done locally. Please call. Thank you calling [facility]. You will receive a return call within 48 hours ( or 2 business days if close to the weekend). If you feel that this is an urgent issue and needs immediate attention, it is recommended that you contact your primary care provider office or proceed to your nearest Urgent Care Center of Emergency Room ED for evaluation/treatment. documented in this encounter [facility] 01-13-2023 Hospital Discharge instructions Patient Education 01/13/2023 [...] Follow these instructions at home: Medicines Take enty-fqr-mfajuik and prescription medicines only as told by your health care provider. If you were prescribed an antibiotic medicine, take it as told by your health care provider. Do not stop taking the antibiotic even if you start to feel better. Eating and drinking Make any diet changes as told by your health care provider. Work with a diet and clinical operations specialist (dietitian) to create an eating [...] provider. Document Revised: 04/12/2021 Document Reviewed: 04/12/2021 [employer] Potato Patient Education 2022 Viratech. Follow Up Care 01/07/2023 14:24:39 With:Jessica Lopez CNP Address: When:3 months [facility] 12-30-2022 Note [phone] [id number] [facility] 12-28-2022 Evaluation + Plan note Extrac vladimir from: Title:JAYME post op Author:Frank Tovar MD Date:12/28/22 Plan Transfer/Discharge: Transfer/Discharge Discharge when meets criteria ( To home ). Extracted from: Title:JAYME GA Author:Frank Tovar MD Date:12/28/22 Plan [place] [employer] Anesthesiologists (ASA) physical status classification: Class II. Anesthetic Preoperative Plan: Anesthesia General. [facility] Discharge instructions Patient Education 12/28/2022 10:55:03 [...] including vitamins, herbs, eye drops, creams, and jpwc-mmm-azbqbbo medicines. Any problems you or family members [...] provider tells you to take them. ?Taking qvhf-pch-hxzjvuv medicines, vitamins, herbs, and supplements. Follow instructions [...] home. Follow these instructions at home: Take leia-kqk-jhfhqow and prescription medicines only as told by [...] provider. Document Revised: 01/08/2021 Document Reviewed: 01/08/2021 Hot Potato Patient Education 2022 Viratech. 12/28/2022 10:55:03 Endoscopy, Care After Procedure [facility] Endoscopy Care After Procedure Please read the instructions outlined below and refer to this sheet in the next few weeks. These discharge instructions provide you with general information on [facility] Your doctor may also give [...] Document Re-Released: 02/14/2007 ExitCare Patient Information 2009 [employer]. Follow Up Care 12/21/2022 13:31:10 With:Petty AMBROSE Address: [address] [place] [address] [facility] (1) When:1 to 2 weeks Comments:Call for any problems. [facility]17[facility] Hospital Discharge instructions Patient Education 12/21/2022 12:29:14 [...] per serving. Talk with a diet and clinical operations specialist (dietitian) if you have questions [...] Bulgur wheat. Millet. Quinoa. Bran muffins. Popcorn. [place] wafer crackers. Meats and other proteins [place], kidney, and aparicio beans. Soybeans. Split peas. [...] Cream cheese. Sour cream. Fats and oils [place]. Beverages Soft drinks. Other foods Cakes and [...] 08/23/2006 Document Revised: 06/27/2018 Document Reviewed: 06/27/2018 Hot Potato Patient Education 2020 Viratech. Follow Up Care 12/17/2022 13:25:02 With:Jessica Lopez CNP Address: When:1 month [facility] [phone] Telephone encounter Note* Telephone Encounter - REINA Erickson - 11/12/2022 8:39 AM EST Send [employer]ar message to [employer] for update, K a little low at 3.5. [facility]03-09-2023 Miscellaneous Notes* Telephone Encounter - REINA Erickson - 11/12/2022 8:39 AM EST Send [email or web address] message to Marianna for update, K a little low at 3.5. * Telephone Encounter - Kia Colin RN - 11/06/2022 3:12 PM EST 11/05/22 faxed lab results from [facility] entered and copy sent to [facility]. Fwd to Dr Sosa and HEBER. [facility] encounter Note* Telephone Encounter - Kia Colin RN - 11/06/2022 3:12 PM EST 11/05/22 faxed lab results from [facility] entered and copy sent to [facility]. Fwd to Dr Sosa and HFNP. [facility]01-26-2023 History of Present illness Narrative* Justyna Heller, CLOTH BLEACHING RANGE OPERATOR CHIEF-SHAPER SETTER - 10/01/2022 2:45 PM EST History of [...] a little bit. Really enjoyed going to [employer] [place] for a trip in a RV. On [...] conjunction with Dr. Sosa. [facility]* Patient Instructions* Janine Fu RN [...] M-F 8 to 4:30 ; office # [phone], option 6, then option 2. Guidelines for home management: 1. Continue to monitor weight first thing each morning. 2. Report to the CHF CLINIC ([phone]) any significant weight change. Remember that weight [...] to have labs/tests run outside of the [facility] and you do not hear from us1-2 days after they are performed, you must call us to ensure we received the results. Office fax #[phone]. No news does not necessarily mean that your tests are normal, it could mean we did not get the results. For questions/updates: please provide your name with spelling, date of and question or update All calls are prioritized and responses researched, if possible, prior to calls being returned. Call Scheduling for any appointment/procedure verification or changes [phone], option 7 or [facility] at [phone], option 1. [facility] note * Encounter Date Diagnosis Assessment [...] understanding and is agreeable with treatment plan [employer] [facility] Other 07-14-2022 Instructions* Patient Instructions* Janine Fu [...] M-F 8 to 4:30 ; office # [phone], option 6, then option 2. Guidelines for home management: 1. Continue to monitor weight first thing each morning. 2. Report to the CHF CLINIC ([phone]) any significant weight change. Remember that weight [...] to have labs/tests run outside of the [facility] and you do not hear from us1-2 days after they are performed, you must call us to ensure we received the results. Office fax #[phone]. No news does not necessarily mean that your tests are normal, it could mean we did not get the results. For questions/updates: please provide your name with spelling, date of and question or update All calls are prioritized and responses researched, if possible, prior to calls being returned. Call Scheduling for any appointment/procedure verification or changes [phone], option 7 or [facility] Schedul[facility] at [phone], option 1. [facility] History of Present illness Narrative* Justyna Heller, CLOTH BLEACHING RANGE OPERATOR CHIEF-SHAPER SETTER - 03/19/2022 3:15 PM EDT History of [...] scale back a little bit. Going to [employer] [place] [place] a trip in a RV. Stillhas [...] 03/19/2022 3:15 PM EDT Patient seen with LINE THERAPIST I saw and personally examined this patient [...] thecurrent treatment plan, as outlined in the LINE THERAPIST note. The plan was developed mutually at the time of the clinic visit. The nurse practitioner and I spoke with the patient and provided written and verbal instructions for the patient. The note has been reviewed and I agree with the assessment and plan. Follow up arrangements were made prior to the patient being discharged from the clinic. [facility] note * Encounter Date Diagnosis Assessment [...] Follow up with primary care provider or clinical operations specialist if no improvement of symptoms. [employer] Education Other evaluation + Plan note Future Appointments Appointment Date:12/28/2022 10:35:00 AM Scheduled Provider: Location:[facility] Appointment Type:Surgery FT Diagnostic Tests Pending * Enteric Panel by PCR 12/21/22 * Clostridium Difficile PCR 12/21/22 * Fecal WBC Lactoferrin 12/21/22 * O & P Exam, Routine 12/21/22 * Giardia lamblia, Direct Detection EIA 12/21/22 * CBC w/ Auto Diff 12/21/22 * Comprehensive Metabolic Panel 12/21/22 [facility] Evaluation + Plan note Future Appointments Appointment Date:11/04/2023 12:20:00 PM Scheduled Provider:Jessica Lopez CNP Location:[facility] Appointment Type:[facility] Follow Up [facility] Evalutpknp noteNo assessment information available [facility] Work Phone: evaluation note* 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 Chronic systolic heart failure [facility] Other [facility] note* 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 Palpitations [facility]* Diagnosis Other [facility]- [facility] 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, unspecified site [facility] Diagnosis Other cardiomyopathy- Primary Palpitations [facility] 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 documented in this encounter [facility] note* Diagnosis Cardiac microvascular disease- Primary Other and unspecified angina pectoris [facility]* Diagnosis Onset Date Resolution Status Arthralgia acute Family history of lupus acut e Lumbar pain acute [facility] Work Phone: Evaluation note* Diagnosis Onset Date Resolution Status Swelling, mass, or lump in head and neck acute [facility] Work Phone: Evaluation note* Diagnosis Follicular thyroid carcinoma (CMS/HCC)- Primary Malignant neoplasm of thyroid gland [facility] Diagnosis Cardiac microvascular disease- Primary Other and unspecified angina pectoris [facility]* 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 Atypical chest pain Other chest pain [facility] Narrative - Reported* Type Description Date Medical History cardiomyopathy Synergis Education Other Hospital course Narrative No data available for this section [facility] Hospital Discharge instructions No data available for this section [facility] Hospital Discharge instructionsAmbulatory Orders* Referral to Pain Management Time Frame: 12/10/23, Location: None Selected * Referral to Rheumatology Time Frame: 12/10/23, Location: None Selected [facility] Work Phone: Hospital Discharge instructions Additional Instructions DISCHARGE INSTRUCTIONS FOR THYROIDECTOMY ACTIVITY -No lifting or straining. -[No strenuous activity for 2 weeks.] -[Sleep with head elevated on two pillows.] -May shower [today or tomorrow?] -[You may shower and wash the incision with soap and water, but do not submerge the incision or allow prolonged exposure to water. Pat dry.] -[No driving for at least 5 days, or while taking prescription pain medicine.] WOUND CARE/DRESSING -Be sure to keep your incision clean and dry. -[There is a clear, glue-like adhesive on your incision. Do not peel or pick at this adhesive. It wall fall off on its own after a few days.] -[Call the office if incision area appears to have any sign of infection, such as increased swelling, redness, or purulent drainage.] -[Watch for bleeding, swelling, difficulty breathing, difficulty swallowing.] MEDICATION -If any prescriptions have been given to you, be sure to take as directed. OTHER Any problems- call the office or return to the Emergency Room. If you are having excessive or persistent pain, swelling, fever (oral temp >101), yellow-green foul smelling drainage or bleeding from incision, excessive redness of incision, nausea, vomiting, or any other problems, you should first call your surgeon for advice. If you are unable to contact your surgeon, seek help from a hospital emergency room. FOLLOW UP -Call the office to follow up in one week. [][facility] Work Phone: Progress note No data available for this section [facility] Reason for Referral Specialty Diagnoses / Procedures Referred By Fariha valle Referred To Contact Diagnoses Cardiac microvascular disease Atypical chest pain Procedures CT ANGIO CARDIAC WITH CORONARY ARTERIES CHG CTA HRT CORNRY ART/BYPASS FTS CONTRST 3D POST Justyna Heller, CLOTH BLEACHING RANGE OPERATOR CHIEF-SHAPER SETTER [address] [place] [address] Referral ID Status Reason Start Date Expiration Date Visits Re quested Visits Authorized [id number] Closed 05/18/2024 06/12/2025 1 1 Specialty Diagnoses / Procedures Referred By Fariha valle Referred To Contact MR IMAGING Diagnoses Vascular malformation Congenital vascular anomaly Procedures MRI BRAIN WO IVCON MRI BRAIN BRAIN STEM W/O CONTRAST MATERIAL Jyoti Aguilera APRN.SHAPER SETTER [address] [place] [address] [place] [id number] Referral ID Status Reason Start Date Expiration Date Visits Requested Visits Authorized [id number] Pending Review Auto-Generat ed Referral 10/25/2023 11/23/2024 1 1 Specialty Diagnoses / Procedures Referred By Contac t Referred To Contact MR IMAGING Diagnoses Developmental venous anomaly Procedures MRI BRAIN WO/W IVCON MRI BRAIN BRAIN STEM W/O W/CONTRAST MATERIAL Ruth Ramirez PA-C [address] [place] [address] Mr Imaging Referral ID Status Reason Start Date Expiration Date Visits Requested Visits Authorized [id number] Pending Review Auto-Generat ed Referral 06/06/2023 12/14/2023 1 1 Specialty Diagnoses / Procedures Referred By Contac t Referred To Contact Diagnoses Cardiac microvascular disease Chronic systolic heart failure Procedures ECHOCARDIOGRAM IN ECHO HEART XTHORACIC,COMPLETE W DOPPLER Justyna Heller, CLOTH BLEACHING RANGE OPERATOR CHIEF-SHAPER SETTER [address] [place] [address] Referral ID Status Reason Start Date Expiration Date Visits Re quested Visits Authorized [id number] Closed 11/27/2021 12/22/2022 1 1 Summary Purpose Family History No Family History Records Found Relationship Condition Age at Onset Recorded Date/T adryan father Unknown Relationship Condition Age at Onset Recorded Date/T adryan father Unknown Myocardial infarction Unknown mother Diabetes mellitus Unknown Malignant neoplasm of skin Unknown sister Lupus Unknown Rheumatoid arthritis Unknown sister Mitral valve prolapse Unknown brother High blood cholesterol Unknown Advance Directives No Advanced Directives Records Found Advance Directive Response Recorded Date/ Time Advance Directives No March 16 12:17pm Chief Complaint and Reason for Visit Chief Complaint lower back pain , ab dominal pain Reason for Visit Arthralgia Family history of lupus Lumbar pain Chief Complaint lump on neck Reason for Visit Swelling, mass, or l ump in head and neck Chief Complaint lump on neck Left Thyroid Nodule Reason for Visit Swelling, mass, or l ump in head and neck Chief Complaint lump on neck Left Thyroid Nodule Left Thyroid Nodule Reason for Visit Swelling, mass, or l ump in head and neck Additional Source Comments Care Teams (unrecognized sec tion and content) Team Status: Inactive Member Role Status Dates HAYLIE PooleC Attending Provider Active Patient Financial Services Coordinator Relationship Specialty Start Date End Date Cj Laoz MD [address] [place] [address] [place] [address] PCP - General 02/26/11 Patient Financial Services Coordinator Relationship Specialty Start Date End Date Cj Lazo MD [address] [place] [address] [place] [address] PCP - General 02/26/11 Patient Financial Services Coordinator Relationship Specialty Start Date End Date Cj Lazo MD [address] [place] [address] [place] [address] PCP - General 02/26/11 Patient Financial Services Coordinator Relationship Specialty Start Date End Date Cj Lazo MD [address] [facility] [place] [address] PCP - General Family Medicine 01/13/16 Patient Financial Services Coordinator Relationship Specialty Start Date End Date Cj Lazo MD [address] [facility] [place] [phone] PCP - General Family Medicine 01/13/16 Patient Financial Services Coordinator Relationship Specialty Start Date End Date Cj Lazo MD [address] [place] [address] [place] [address] PCP - General 02/26/11 Patient Financial Services Coordinator Relationship Specialty Start Date End Date Cj Lazo MD [address] [facility] [place] [phone] PCP - General Family Medicine 01/13/16 Patient Financial Services Coordinator Relationship Specialty Start Date End Date Cj Lazo MD [address] [facility] [place] [phone] PCP - General Family Medicine 01/13/16 Patient Financial Services Coordinator Relationship Specialty Start Date End Date Cj Lazo MD [address] [place] [phone] PCP - General Family Medicine 01/13/16 Patient Financial Services Coordinator Relationship Specialty Start Date End Date Cj Lazo MD [address] [place] [address] PCP - General 02/26/11 Team Status: Active [...] End: April 13, 2024 Deja Pack APRN LINE THERAPIST-C Attending Provider Act gabriella Start: April 13, 2024 End: April 13, 2024 Team Status: Active Member Role Status Dates Cj Lazo MD Primary Care Provider Active Start: April 19, 2024 Deja Pack APRN LINE THERAPIST-C Attending Provider Act gabriella Start: April 19, 2024 Team Status: Inactive Member Role Status Dates Cj Lazo MD Primary Care Provider Active Start: May 17, 2024 End: May 17, 2024 Ever Woodward DO Attending Provider Active S tart: May 17, 2024 End: May 17, 2024 Team Status: Inactive Member Role Status Dates Cj Lazo MD Primary Care Provider Active Start: May 24, 2024 End: May 24, 2024 Ever Woodward DO Attending Provider Active S tart: May 24, 2024 End: May 24, 2024 Patient Financial Services Coordinator Relationship Specialty Start Date End Date Cj Lazo MD [address] [place] [facility] [place] [address] PCP - General Family Medicine 06/01/24 Ever Woodward DO [address] [place] [address] Otolaryngology 06/01/24 Deja Pack NP [address] [place] [address] Referring Physician Family Medicine 06/01/24 Patient Financial Services Coordinator Relationship Specialty Start Date End Date Cj Lazo MD [address] [facility] [place] [address] PCP - General Family Medicine 06/01/24 Ever Woodward DO [address] [place] [address] Otolaryngology 06/01/24 Deja Pack NP [address] [place] [address] Referring Physician Family Medicine 06/01/24 Patient Financial Services Coordinator Relationship Specialty Start Date End Date Cj Lazo MD [address] [place] [phone] PCP - General 02/26/11 Patient Financial Services Coordinator Relationship Specialty Start Date End Date Cj Lazo MD [address] [place] [address] PCP - General 02/26/11 Goals (unrecognized section and content) Goals may [...] sectionGoals may be documented in an alternate sectionGoals may be documented in an alternate sectionGoals may be documented in an alternate section REASON FOR VISIT (unrecogniz ed section and content) Specialty Diagnoses / Procedures Referred By Contac t Referred To Contact Diagnoses Cardiac microvascular disease Chronic systolic heart failure Procedures ECHOCARDIOGRAM IN ECHO HEART XTHORACIC,COMPLETE W DOPPLER Justyna Heller, CLOTH BLEACHING RANGE OPERATOR CHIEF-SHAPER SETTER [address] [place] [address] Referral ID Status Reason Start Date Expiration Date Visits Re quested Visits Authorized [id number] Closed 11/27/2021 12/22/2022 1 1 Reason Comments Follow-up Reason Onset Date Comments Results 11/06/2022 Reason Comments Question and update Reason Comments Symptoms Reason Comments Provider Question Reason Comments Post-op Check incision Specialty Diagnoses / Procedures Referred By Contac t Referred To Contact Diagnoses Cardiac microvascular disease Atypical chest pain Procedures CT ANGIO CARDIAC WITH CORONARY ARTERIES CHG CTA HRT CORNRY ART/BYPASS GRFTS CONTRST 3D POST Justyna Heller, CLOTH BLEACHING RANGE OPERATOR CHIEF-SHAPER SETTER [address] [place] [address] Referral ID Status Reason Start Date Expiration Date Visits Re quested Visits Authorized [id number] Closed 05/18/2024 06/12/2025 1 1 Source Comments (unrecognize d section and content) In the event this informatio n is protected by the Federal Confidentiality of Alcohol and Drug Abuse Patient Records regulations: The Federal rules restrict any use of the information to criminally investigate or prosecute any alcohol or drug abuse patient.[facility] HospitalIn the event this information is protected by the Federal Confidentiality of Alcohol and Drug Abuse Patient Records regulations: The Federal rules restrict any use of the information to criminally investigate or prosecute any alcohol or drug abuse patient.[facility] HospitalIn the event this information is protected by the Federal Confidentiality of Alcohol and Drug Abuse Patient Records regulations: The Federal rules restrict any use of the information to criminally investigate or prosecute any alcohol or drug abuse patient.[facility] HospitalIn the event this information is protected by the Federal Confidentiality of Alcohol and Drug Abuse Patient Records regulations: The Federal rules restrict any use of the information to criminally investigate or prosecute any alcohol or drug abuse patient.[facility] HospitalIn the event this information is protected by the Federal Confidentiality of Alcohol and Drug Abuse Patient Records regulations: The Federal rules restrict any use of the information to criminally investigate or prosecute any alcohol or drug abuse patient.[facility] INFORMATION SOURCE (unrecogn ized section and content) DATE CREATED AUTHOR 01/01/2023 [facility] DATE CREATED AUTHOR AUTHOR'S ORGANIZ ATION 11/15/2023 [facility] DATE CREATED AUTHOR AUTHOR'S ORGANIZ ATION 12/21/2023 [facility] DATE CREATED AUTHOR AUTHOR'S ORGANIZ ATION 05/31/2024 [facility] DATE CREATED AUTHOR AUTHOR'S ORGANIZ ATION 06/10/2024 [facility] EPIC DATE CREATED AUTHOR AUTHOR'S ORGANIZ ATION 06/29/2024 [facility] FOR RECORDS PERTAINING TO PATIENTS WHO ARE [...] BE BASED ON THE PRIMARY CLINICAL RECORDS. [facility] [employer] provides no warranty or guarantee of the accuracy or completeness of information in this document.
[2024-07-06 08:05] LABS: Thyroid Stimulating Hormone 2.191 uIU/mL (0.358-3.740)
[2024-07-07 11:10] LABS: Triiodothyronine (T3) 131 ng/dL (71-180)
== END 2024-07-06 07:19 | disposition home or self-care (01) ==
LOC: LAB 07:18
PROVIDERS: PCP Family Medicine
DX: C73 Malignant neoplasm of thyroid gland (principal); E04.1 Nontoxic single thyroid nodule
CPT/HCPCS: 36415; 84432; 84436; 84443; 84480

== ENCOUNTER 2024-08-25 13:05 | Outpatient (OUT) | payer OTHER, SELFPAY ==
[2024-08-25 13:22] LABS: Basophils Percent Auto 0.5 % (0.2-2.0); Eosinophils Absolute Auto 0.1 10^3/uL (0.0-0.7); Eosinophils Percent Auto 1.3 % (0.9-7.0); Hematocrit 38.4 % (36.0-48.0); Immature Granulocytes Abs Auto 0.01 10^3/uL (0.00-0.03); Immature Granulocytes Pct Auto 0.2 % (0.0-0.5); Lymphocytes Percent Auto 32.7 % (20.5-60.0); Mean Corpuscular HGB Conc 33.9 g/dL (29.9-35.2); Mean Corpuscular Hemoglobin 30.5 pg (26.7-34.0); Mean Corpuscular Volume 90.1 fL (81.0-99.0); Mean Platelet Volume 9.2 fL (9.5-13.5); Monocytes Absolute Auto 0.5 10^3/uL (0.3-0.8); Monocytes Percent Auto 8.5 % (1.7-12.0); Neutrophils Absolute Auto 3.4 10^3/uL (1.4-6.5); Neutrophils Percent Auto 56.8 % (43.0-75.0); Platelet Count 273 10^3/uL (150-450); Red Blood Count 4.26 10^6/uL (4.20-5.40); Red Cell Distribution Width 11.4 % (11.0-15.0)
[2024-08-25 14:21] LABS: Anion Gap 10.6; BUN Creatinine Ratio 18.3; Calcium 9.4 mg/dL (8.5-10.1); Carbon Dioxide 32.4 mmol/L (21.0-32.0); Chloride 103 mmol/L (98-107); Estimated GFR (African America >60 (>=60 mL/min/1.73m^2); Estimated GFR (Non-African Ame >60 (>=60 mL/min/1.73m^2); Glucose 87 mg/dL (74-106); Magnesium 2.4 mg/dL (1.8-2.4); Sodium 142 mmol/L (136-145); TSH W/ REFLEX FT4 1.796 uIU/mL (0.358-3.740)
== END 2024-08-25 13:06 | disposition home or self-care (01) ==
LOC: LAB 13:05
PROVIDERS: PCP Family Medicine
DX: R00.2 Palpitations (principal); I25.85 Chronic coronary microvascular dysfunction
CPT/HCPCS: 36415; 80048; 83735; 83880; 84443; 85025

== ENCOUNTER 2024-09-29 07:23 | Outpatient (OUT) | payer OTHER, SELFPAY ==
--- NOTE | 2024-09-29 07:25 | MM_ITS ---
Patient Name: SUNSHINE RAMIREZ MR#: [id number] : 1975 Exam Date: 09/29/2024 Ordering Doctor: DR. OLMAN STEELE D.O. RADIOLOGY REPORT PROCEDURE: MM TOMOSYNTHESIS SCREENING BI COMPARISON: MG MAMM SCREEN 3D LORNA CAD, 09/15/2022. MM TOMOSYNTHESIS SCREENING BI, 09/17/2023. INDICATIONS: Screening Calculator Name NCI Breast Cancer Risk Assessment Tool 5 Year Breast Cancer Risk 0.80% Lifetime Breast Cancer Risk 8.20% Personal Breast Cancer No Personal Ovarian Cancer No Treatments None Family Cancers Aunt-paternal with skin cancer at age 50; Uncle-paternal with lung cancer at age 40. LOCATION: [facility] BREAST COMPOSITION: The breasts are heterogeneously dense,which may obscure small masses. FINDINGS: DIAGNOSTIC CATEGORY 1--NEGATIVE. NO CHANGE FROM COMPARISON ASSESSMENT. Scattered benign-appearing lymph nodes are present. RIGHT BREAST: No significant suspicious finding. LEFT BREAST: No significant suspicious finding. RECOMMENDATIONS: ROUTINE MAMMOGRAM AND CLINICAL EVALUATION IN 12 MONTHS. PLEASE NOTE: A NORMAL MAMMOGRAM DOES NOT EXCLUDE THE POSSIBILITY OF BREAST CANCER. A CLINICALLY SUSPICIOUS PALPABLE LUMP SHOULD BE BIOPSIED. Dictated by: Sina Owusu MD on 09/29/2024 at 08:54 Approved by: Sina Owusu MD on 09/29/2024 at 09:02
--- OUTSIDE RECORDS SUMMARY | 2024-09-29 07:26 | XMS_ITS | CCD ---
Author Organization [facility] Care Team Providers Care Principal Investigator Name Role Phone GENEVIEVE Alexander Attending Provider Cj Lazo MD Primary Care Provider [phone] Yas Garcia Unavailable Cj Lazo MD Primary Care Provider Cj Lazo MD Primary Care Provider CJ LAZO Primary Care Physician [phone] MISC, DR PADRON Consulting Unavailable MISC, DR [...] ZIEBER, DR GABRIELA Mendoza Consulting Unavailable ILANA KUMARI Consulting Unavailable MISC, DR PADRON Admitting Unavailable [...] Unavailable MD Cj Lazo Primary Care Provider [phone] DO Ever Woodward Attending Provider [phone] Ever Woodward Attending Unavailable Cj Lazo Primary Care Unavailable Crissy, Ever Admitting Unavailable Crissy, Ever Attending Unavailable Cj Lazo Primary Care Unavailable Crissy, Ever Admitting Unavailable ILANA KUMARI Attending Unavailable CRISSY, EVER Fernández Attending Unavailable CRISSY, EVER Fernández Attending Unavailable DEJA PACK Referring Unavailab bell WOODWARD, EVER Fernández Attending Unavailable DEJA PACK Referring Unavailab Cj Chase MD Primary Care Provider Ever Woodward DO Unavailable Sirena BUCK, Deja Rojas Unavailable CJ LAZO Primary Care Unavailable CJ LAZO Referring Unavailable TRIP SOSA Attending Unavailable CHALJUSTYNA PRADO Referring Unavailable CJ LAZO Primary Care Unavailable CHALJUSTYNA PRADO Attending Unavailable CJ LAZO Primary Care Unavailable CJ LAZO Referring Unavailable SHEILATRIP Attending Unavailable VIKKI SORTO Attending Unavailable CJ LAZO Primary Care Unavailable CHALTON JUSTYNA B Referring Unavailable Unallocated , Noms Provider Primary Care Provi yana Allergies Allergy Classification Reported Allergen(s) Allergy Type Date of Onset Reaction(s) Facility (20 sources) fentaNYL; Translations: [fentanyl] Drug Allergy 9 Boris [facility] (20 sources) Midazolam; Translations: [midazolam] Drug Allergy 9 Boris [facility] Other (8 sources) mri contrast Propensity to adverse reactions 4 Unknown, Hives, Anaphylaxis [facility] (4 sources) gadobutrol Drug Allergy 9 Rash, Itchy Throat, Chills, Dry Mouth [facility] (7 sources) Contrast media; Translations: [contrast media (gadolinium-bas ed)] Drug allergy Rash, Cough [facility] (1 source) fentaNYL Drug Allergy [facility] (1 source) Gadolinium Drug Allergy [facility] (2 sources) Midazolam; Translations: [Versed] Drug Allergy [facility] (18 sources) Gadolinium-Cont aining Contrast Media Drug Allergy 9 Anaphylaxis, Rash [facility] (4 sources) gadobutrol Drug Allergy 9 Rash, Itchy Throat, Chills, Dry Mouth [facility] (17 sources) Iodinated Contrast Media Allergy to substance 4 Comment:MRI dye, Anaphylaxis [facility] (2 sources) Gadolinium-Cont aining Contrast Medi Allergy to substance 4 Anaphylaxis [facility] (2 sources) Iodinated Diagnostic Agents Propensity to adverse reactions to drug [address] [facility] Medications Current Medications Medication Drug Class(es) Dates Sig (Normalized) Sig (Original) acetaminophen 325 mg / HYDROcodone bitartrate 5 mg oral tablet (7 sources) Opioid Agonist Start: 05-24-2024 HYDROcodone-acetam inophen (Phelps) 5-325 MG tablet 1 tablet 05/24/2024 Active Start: 05-24-2024 take 1 tablet by alfredo th every six hours Hydrocodone-Acetaminophen Active 1 TAB P O Every 6 hours 10 7 May 24, 2024 amLODIPine 2.5 mg oral tablet (16 sources) Dihydropyridine Calcium Channel Nathen Start: 01-06-2024 [...] TID, # 90 tab(s), Refills(s) 6, Pharmacy: [facility] 1155, 157, cm, 12/20/23 11:01:00 EDT, Height/Length [...] tablet (2 sources) beta-Adrenergic Nathen Start: 06-21-20 24 Metoprolol 50 MG tab regular release Take [...] 0 Start Date: 11/26/20 Status: Ordered Benefiber (20 sources) Start: 12-21-2022 Benefiber Oral , Daily, [...] Documented Da te Episodic/Chronic Cancer of thyroid (4 sources) Follicular thyroid carcinoma; Translations: [Malignant neoplasm of thyroid gland] 06-08-2024 Chronic Cardiac and circulatory congenital anomalies (3 sources) Venous malformation; Translations: [Other malformations of cerebral vessels] Chronic Cardiac dysrhythmias (20 sources) Palpitations; Translations: [Palpitations] Onset: 11-27-2022 Resolved: 05-04-2024 07-24-2008 Episodic Conditions associated with dizziness or vertigo (20 sources) Lightheadedness; Translations: [Dizziness and giddiness] Onset: [...] pain] Onset: 08-14-2022 Episodic Other gastrointestinal disorders (20 sources) Irritable bowel syndrome; Translations: [Mixed irritable [...] site unspecified] 12-10-2023 Episodic Other skin disorders (9 sources) Finding of head and neck region; Translations: [Localized swelling, mass and lump, head] Onset: 05-04-2024 Resolved: 05-04-2024 04-13-2024 Episodic Other skin disorders (4 sources) Localized swelling, mass and lump, head; Translations: [Swelling, mass, or lump in head and neck] 04-13-2024 Episodic Other upper respiratory disease (12 sources) Chronic pharyngitis; Translations: [Chronic pharyngitis] Onset: 05-04-2024 Resolved: 05-04-2024 05-04-2024 Chronic Residual codes; unclassified (20 sources) Insomnia; Translations: [Insomnia, unspecified] Onset: 05-04-2024 [...] Onset: 3 Resolved: 4 Episodic Esophageal disorders (20 sources) Gastroesophageal reflux disease without esophagitis; Translations: [Gastro-esophageal reflux disease without esophagitis] Onset: 3 Resolved: 4 Chronic Headache; including migraine (12 sources) Menstrual migraine; Translations: [Menstrual migraine, not intractable, without status migrainosus] Onset: 4 Resolved: 4 05-04-2024 Chronic Malaise and fatigue (1 source) Other fatigue; Translations: [OTHER FATIGUE] Onset: 2 Episodic Menstrual disorders (12 sources) Disorder of menstruation; Translations: [Irregular menstruation, unspecified] Onset: 4 Resolved: 4 05-04-2024 Chronic Miscellaneous mental health disorders (12 sources) Bodily distress disorder; Translations: [Other somatoform disorders] Onset: 4 Resolved: 4 05-04-2024 Chronic Nausea and vomiting (17 sources) Nausea; Translations: [Nausea] Onset: 3 Resolved: 4 Episodic Other complications of ; puerperium affecting management of mother (8 sources) cardiomyopathy; 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] Onset: 8 07-26-2008 Episodic Other connective tissue disease (17 sources) Muscle pain; Translations: [Myalgia, unspecified site] Onset: 6 Resolved: 4 05-21-2016 Episodic Other connective tissue disease (17 sources) Fibromyalgia; Translations: [Fibromyalgia] Onset: 6 Resolved: 4 05-21-2016 Episodic Other disorders of stomach and duodenum (20 sources) Intestinal metaplasia of gastric cardia; Translations: [Intestinal metaplasia of gastric cardia] Onset: 9 Resolved: 4 07-12-2019 Episodic Other ear and sense organ disorders (12 sources) Bilateral hearing loss; Translations: [Unspecified hearing loss, bilateral] Onset: 4 Resolved: 4 05-04-2024 Chronic Other female genital disorders (12 sources) Abnormal uterine bleeding; Translations: [Abnormal uterine and vaginal bleeding, unspecified] Onset: 4 Resolved: 4 05-04-2024 Chronic Other gastrointestinal disorders (18 sources) Irritable bowel syndrome characterized by alternating bowel habit; Translations: [Mixed irritable bowel syndrome] Onset: 3 Resolved: 4 Chronic Other gastrointestinal disorders (20 sources) Esophageal dysphagia; Translations: [Other dysphagia] Onset: 9 Resolved: 4 03-03-2019 Episodic Other gastrointestinal disorders (20 sources) Diarrhea; Translations: [Diarrhea, unspecified] Onset: 3 Resolved: 4 Episodic Other gastrointestinal disorders (16 sources) Heartburn; Translations: [Heartburn] Onset: 3 Resolved: 4 Episodic Other gastrointestinal disorders (13 sources) Abdominal bloating; Translations: [Abdominal distension (gaseous)] Onset: 4 Resolved: 4 12-17-2023 Episodic Other lower respiratory disease (8 sources) Finding of respiration; Translations: [Other forms of dyspnea] Onset: 3 04-06-2013 Episodic Other nervous system disorders (17 sources) Numbness and tingling sensation of skin; Translations: [Anesthesia of skin] Onset: 6 Resolved: 4 05-21-2016 Episodic Other nervous system disorders (7 sources) Postoperative pain ; Translations: [Other acute postprocedural pain] Onset: 4 Resolved: 4 05-24-2024 Episodic Other non-traumatic joint disorders (17 sources) Multiple joint pain; Translations: [Pain in unspecified joint] Onset: 6 Resolved: 4 05-21-2016 Episodic Other non-traumatic joint disorders (17 sources) Multiple stiff joints; Translations: [Stiffness of unspecified joint, not elsewhere classified] Onset: 6 Resolved: 4 05-21-2016 Episodic Other non-traumatic joint disorders (17 sources) Joint pain; Translations: [Pain in unspecified joint] Onset: 4 Resolved: 4 12-10-2023 Episodic Other screening for suspected conditions (not mental disorders or infectious disease) (4 sources) Encounter for screening mammogram for malignant neoplasm of breast; Translations: [ENC SCR MAMMO MALIG NEOPLASM BREAST] Onset: 3 Episodic Other skin disorders (7 sources) Finding of head region; Translations: [Localized swelling, mass and lump, head] Onset: 4 Resolved: 4 05-04-2024 Episodic Other upper respiratory disease (2 sources) Feeling of lump in throat; Translations: [Globus sensation] 05-06-2024 Episodic Glendy-; endo-; and myocarditis; cardiomyopathy (except that caused by tuberculosis or sexually transmitted disease) (18 sources) Cardiomyopathy; Translations: [Other cardiomyopathies] Onset: 3 Resolved: 4 Chronic Residual codes; unclassified (17 sources) FH: Rheumatoid arthritis; Translations: [Family history of arthritis] Onset: 6 Resolved: 4 05-21-2016 Episodic Residual codes; unclassified (17 sources) Family history of lupus erythematosus; Translations: [...] Spondylosis; intervertebral disc disorders; other back problems (18 sources) Low back pain; Translations: [Lumbar back pain] Onset: 4 Resolved: 4 12-10-2023 Episodic Thyroid disorders (20 sources) Thyroid nodule; Translations: [Nontoxic single thyroid [...] 06-22-2024 CT ANGIO CARDIAC WITH CORONARY ARTERIES [facility] CT Report Name: MARIANNA RAMIREZ : [...] TYPE: Calcium score, Coronary CT Angiography SCANNER STORE STOCK HELP: [employer] SCANNER MODEL: OkCopayEFlooved Alpha DOSE REDUCTION ALGORITHM: Helical with dose [...] RADIATION DOSE (more content not included)... Normal [facility] CT Report Name: MARIANNA RAMIREZ Christel : 1975 Scan Date: 2024-06-22 12:26:45 Electronically [...] TYPE: Calcium score, Coronary CT Angiography SCANNER STORE STOCK HELP: [employer] SCANNER MODEL: NAEOTOM Alpha DOSE REDUCTION ALGORITHM: Helical with dose modulation SCAN COVERAGE ZONE: Coronary Arteries EKG GATED: Yes GENERAL -------- CONTRAST AGENT ------ CONTRAST AGENT USED? (more content not included)... CARDIOLOGY Jatinder Phipps MD - 06/22/20[address] [facility] [address] Report Name: MARIANNA RAMIREZ : [...] TYPE: Calcium score, Coronary CT Angiography SCANNER STORE STOCK HELP: [employer] SCANNER MODEL: NAEOTOM Alpha DOSE REDUCTION ALGORITHM: [...] B-BLOCKERS, ORAL DOSE (more content not included)... [facility] Radiology Study observation (narrative) [facility] COVID CepheidOrdered By: Byron Kim on 05-24-2024 SARS-CoV-2 (COVID-19) Ab IA Ql Negative Negative [facility] Comment on above: This is a duplicate Cepheid Xpert Xpress CoV-2/Flu/RSV Plus RNA by RT-PCR result to be used for statistical tracking purpose only. SARS-CoV-2 (COVID-19) RNA AMY+probe Ql (Unsp spec) [facility] COVID-19 / Flu A/B / RSV PCR [...] or Cepheid Disclaimer revoked sooner. PERFORMED BY: [place] [address] PATHOLOGIST FRONT WORKER RUSS MAHAN M.D. Normal [facility] Comment on above: Performed By: #### C EPHEID NEG, COVID19 FLU RSV #### [address] Cepheid COVID PCR Negativeon 05-24-2024 SARS-CoV-2 (COVID-19) RNA AMY+probe Ql (Unsp spec) Negative Normal Negative [facility] Comment on above: Result Comment: This is a duplicate CepPrimary Dataid Xpert Xpress CoV-2/Flu/RSV Plus RNA by RT-PCR result to be used for statistical tracking purpose only. PERFORMED BY: [place] [address] PATHOLOGIST FRONT WORKER RUSS MAHAN M.D. Performed By: #### C EPHEID NEG, COVID19 FLU RSV #### [address] HCG ( test) IA.rapi d Ql (U)Ordered By: Wayne Metcalf on 05-24-2024 HCG ( test) Ql (U) Negative [facility] HCG,Urineon 05-24-2024 Beta HCG ( test) Ql (U) Negative Normal [facility] Comment on above: Result Comment: PERF ORMED BY: [place] [address] PATHOLOGIST FRONT WORKER RUSS MAHAN M.D. Performed By: #### U HCG #### [address] Jasvir 05-24-2024 L Specimen: [id number] Received: 05/24/24 Status: LYNN Nathan Num: [id number] Spec Type: Surgical Subm Dr: Ever Woodward DO Tissues: A THYROID - Lobe (L THYROID AND ISTHMUS) B THYROID - Lobe (L POST CAPSUL) Procedures: HE/17, Gross/Micro L5/2, FS HE/2 Age/ Patient Sex Location Account Attending Physician Marianna Ramirez 49/F [place] [id number] Ever Woodward DO SPEC NUM: [id number] RECD: 05/24/24 STATUS: LYNN ISABEL NUM: [id number] RADHA: 05/24/[address]: Ever Woodward DO ENTERED: 05/24/[address] [facility] [address]: SPEC TYPE: Surgical DEPT: S ENTERED BY: [id number] RECV BY: [id number] ORDERED: HE/17, Gross/Micro L5/2, FS HE/2 ORDERED: [...] Left lobectomy with isthmusectomy (hemithyroidectomy) TUMOR Specimen: [id number] Received: 05/24/24 Status: LYNN Isabel Num: [id number] Spec Type: Surgical Subm Dr: Ever Woodward DO Tissues: A THYROID - Lobe (L THYROID AND ISTHMUS) B THYROID - Lobe (L POST CAPSUL) Procedures: , Gross/Micro L5/2, FS HE/2 Patient: Marianna Ramirez [id number] (Continued) Specimen: [id number] Received: 05/24/24 (Continued) Pathological Diagnosis (Continued) Signed (signature on file) Samy Ascencio MD 05/29/24 1848 Specimen: [id number] Received: 05/24/24 Status: LYNN Isabel Num: [id number] Spec Type: Surgical Subm Dr: Ever Woodward DO Tissues: A THYROID - Lobe (L THYROID AND ISTHMUS) B THYROID - Lobe (L POST CAPSUL) Procedures: , Gross/Micro L5/2, FS HE Patient: Marianna Ramierz [id number] (Continued) Specimen: [id number] Received: 05/24/24-104 (Continued) Pathological Diagnosis (Continued) Tumor Focality: Unifocal [...] Thyroid nodule, left thyroid and isthmus Specimen: [id number] Received: 05/24/24 Status: LYNN Isabel Num: [id number] Spec Type: Surgical Subm Dr: Ever Woodward DO Tissues: A THYROID - Lobe (L THYROID AND ISTHMUS) B THYROID - Lobe (L POST CAPSUL) Procedures: HE/17, Gross/Micro L5/2, FS HE/2 Patient: Marianna Ramirez [id number] (Continued) ------- (more content not included)... Normal [facility] Automated basophil %Ordered By: Ever Woodward on 05-17-2024 Basophils/100 WBC (Bld) 0.5 % Normal . [facility] [place] Comment on above: Performed By: #### B MP, CBC #### [facility] [address] Automated basophil countOrde red By: Ever Woodward on 05-17-2024 Basophils (Bld) [#/Vol] 0.0 10*3/uL Normal 0.0-0.2 [facility] Comment on above: Result Comment: PERF ORMED BY: [facility] [address] [place] [address] PATHOLOGIST FRONT WORKER RUSS MAHAN M.D. Performed By: #### B MP, CBC #### [address] Automated blood monocyte cou ntOrdered By: Ever Woodward on 05-17-2024 Monocytes (Bld) [#/Vol] 0.5 10*3/uL Normal 0.0-0.8 [facility] Comment on above: Performed By: #### B MP, CBC #### [address] Automated eosinophil %Ordere d By: Ever Woodward on 05-17-2024 Eosinophils/100 WBC (Bld) 1.2 % Normal . [facility] Comment on above: Performed By: #### B MP, CBC #### [address] Automated eosinophil countOr dered By: Ever Woodward on 05-17-2024 Eosinophils (Bld) [#/Vol] 0.1 10*3/uL Normal 0.0-0.45 [facility] Comment on above: Performed By: #### B MP, CBC #### [address] Automated monocyte %Ordered By: Ever Woodward on 05-17-2024 Monocytes/100 WBC (Bld) 7.7 % Normal . [facility] [place] Comment on above: Performed By: #### B MP, CBC #### [address] Automated neutrophil %Ordere d By: Ever Woodward on 05-17-2024 Neutrophils/100 WBC (Bld) 74.3 % Normal . [facility] Comment on above: Performed By: #### B MP, CBC #### [address] Basic Metabolic Panelon 05-07 GFR/1.73 sq M.predicted MDRD (S/P/Bld) [Vol rate/Area] mL/min/{1.73_m2} Normal [facility] Comment on above: Performed By: #### B MP, CBC #### [facility] [address] [place] [id number] [facility] Basic metabolic 1998 panelon 05-17-2024 Anion gap [Moles/Vol] 10.3 mmol/L 6.0 - 15.0 [facility] Calcium [Mass/Vol] 9.4 mg/dL 8.6 - 10. 3 mg/dL [facility] Chloride [Moles/Vol] 104 mmol/L 98 - 10 7 mmol/L [facility] CO2 [Moles/Vol] 28.9 mmol/L 21.0 - 31.0 mmol/L [facility] Creatinine (U) [Mass/Vol] 0.74 mg/dL 0.60 - 1.20 mg/dL [facility] GFR/1.73 sq M.predicted MDRD (S/P/Bld) [Vol rate/Area] mL/min/{1.73_m2} [facility] Glucose [Mass/Vol] 105 mg/dL High 70 - 100 mg/dL [facility] Comment on above: Random Glucose Refer ence Range is dependent on time and content of last meal. Glucose of more than 200 mg/dL in a nonstressed, ambulatory subject supports the diagnosis of Diabetes Mellitus. ADA recommended reference range Interpretation and review of laboratory results Abnormal [facility] Potassium [Moles/Vol] 4.2 mmol/L 3.5 - 5.1 mmol/L [facility] Sodium [Moles/Vol] 139 mmol/L 136 - 145 mmol/L [facility] Urea nitrogen [Mass/Vol] 12 mg/dL 7 - 25 mg/dL [facility] CBC W Auto Differential pane l (Bld)on 05-17-2024 Basophils (Bld) [#/Vol] 0.0 10*3/uL 0.0 - 0.2 10*3/uL [facility] Basophils/100 WBC Manual cnt (Syn fld) 0.5 % . [facility] Eosinophils (Bld) [#/Vol] 0.1 10*3/uL 0.0 - 0.45 10*3/uL [facility] Eosinophils/100 WBC Manual cnt (Syn fld) 1.2 % . [facility] Erythrocyte distribution width (RBC) [Ratio] 12.6 % 11.9 - 15.3 % [facility] Hematocrit (Bld) [Volume fraction] 38.0 % 34.0 - 46.4 % [facility] Hemoglobin (Bld) [Mass/Vol] 13.3 g/dL 11.8 - 15.4 g/dL [facility] Lymphocytes (Bld) [#/Vol] 1.1 10*3/uL 1.00 - 4.8 10*3/uL [facility] Lymphocytes/100 WBC Manual cnt (Syn fld) 16.3 % . [facility] MCH (RBC) [Entitic mass] 31.0 pg 24.7 - 34.3 pg [facility] MCHC (RBC) [Mass/Vol] 35.0 g/dL 32.0 - 35.0 g/dL [facility] MCV (RBC) [Entitic vol] 88.4 fL 80 - 100 fL [facility] Monocytes (Bld) [#/Vol] 0.5 10*3/uL 0.0 - 0.8 10*3/uL [facility] Monocytes+Macrophages/1 00 WBC Manual cnt (Syn fld) 7.7 % . [facility] Neutrophils (Bld) [#/Vol] 4.9 10*3/uL 1.8 - 7.7 10*3/uL [facility] Neutrophils/100 WBC Manual cnt (Syn fld) 74.3 % . [facility] NRBC 0.1 /100{WBC} 0 - 0.5 /100{WBC} [facility] Platelet mean volume (Bld) [Entitic vol] 7.5 fL 6.3 - 10.7 fL [facility] Platelets (Bld) [#/Vol] 259 10*3/uL 150 - 450 10*3/uL [facility] RBC LM.HPF (Urine sed) [#/Area] 4.30 /[HPF] 3.60 - 5.00 [facility] WBC (Bld) [#/Vol] 6.6 10*3/uL 3.8 - 11.6 10*3/uL [facility] WBC LM.HPF (Urine sed) [#/Area] 6.6 10*3/uL 3.8 - 11.6 10*3/uL [facility] Calcium [Mass/volume] in Ser um or PlasmaOrdered By: Ever Woodward on 05-17-2024 Calcium [Mass/Vol] 9.4 mg/dL Normal 8.6-10.3 [facility] Comment on above: Result Comment: PERF ORMED BY: [place] [address] PATHOLOGIST FRONT WORKER RUSS MAHAN M.D. Performed By: #### B MP, CBC #### [address] Carbon dioxide, total [Moles /volume] in Serum or PlasmaOrdered By: Ever Woodward on 05-17-2024 CO2 [Moles/Vol] 28.9 mmol/L Normal 21.0-31.0 [facility] Comment on above: Performed By: #### B MP, CBC #### [address] Chloride [Moles/volume] in S david or PlasmaOrdered By: Ever Woodward on 05-17-2024 Chloride [Moles/Vol] 104 mmol/L Normal 98-107 [facility] Comment on above: Performed By: #### B MP, CBC #### [address] Complete Blood Count Auto Di ffon 05-17-2024 Mean Corpuscular HGB Conc 35.0 g/dL Normal 32.0-35.0 [facility] Comment on above: Performed By: #### B MP, CBC #### [address] NRBC% 0.1 /100{WBC} Normal 0-0.5 [facility] Comment on above: Performed By: #### B MP, CBC #### [place] [address] [place] Creatinine [Mass/volume] in Serum or PlasmaOrdered By: Ever Woodward on 05-17-2024 Creatinine [Mass/Vol] 0.74 mg/dL Normal 0.60-1.20 [facility] Comment on above: Performed By: #### B MP, CBC #### [place] [address] [place] ECG 12 lead ECGon 05-17-2024 ECG 12 lead ECG [facility] [place] [address] [place] [address] Electrocardiograph Report Signed Patient: Marianna Ramirez MR#: [id number] : 1975 Acct:[id number] Age/Sex: 49 / F ADM Date: 05/17/24 Loc: Room: Type: [facility] Attending Dr: Ever Woodward DO Ordering Provider: [...] previous ECGs available Confirmed by Katlin Dean ([id number]) on 05/18/2024 12:40:53 AM Referred By: Electronically Signed By: Katlin Dean Transcribed By: MUS Signed By Katlin Dean MD 4 0040 Normal [facility] Erythrocyte distribution wid th [Ratio] by Automated countOrdered By: Ever Woodward on 05-17-2024 Erythrocyte distribution width (RBC) [Ratio] 12.6 % Normal 11.9-15.3 [facility] Comment on above: Performed By: #### B MP, CBC #### [facility] [address] [place] [address] [place] Erythrocytes [#/volume] in B lood by Automated countOrdered By: Ever Woodward on 05-17-2024 RBC (Bld) [#/Vol] 4.30 10*6/uL Normal 3.60-5.00 [facility] Comment on above: Performed By: #### B MP, CBC #### [facility] [address] [place] [address] [place] Glucose [Mass/volume] in Ser um or PlasmaOrdered By: Ever Woodward on 05-17-2024 Glucose [Mass/Vol] 105 mg/dL High 70-100 [facility] Comment on above: ADA recommended refe rence rangeRandom Glucose Reference Range is dependent on time and content of last meal. Glucose of more than 200 mg/dL in a nonstressed, ambulatory subject supports the diagnosis of Diabetes Mellitus. Result Comment: [place] [facility] Glucose Reference Range is dependent on time and content of last meal. Glucose of more than 200 mg/dL in a nonstressed, ambulatory subject supports the diagnosis of Diabetes Mellitus. ADA recommended reference range Performed By: #### B MP, CBC #### [address] Hematocrit [Volume Fraction] of Blood by Automated countOrdered By: Ever Woodward on 05-17-2024 Hematocrit (Bld) [Volume fraction] 38.0 % Normal 34.0-46.4 [facility] Comment on above: Performed By: #### B DEIDRA, CBC #### [address] Hemoglobin [Mass/volume] in BloodOrdered By: Ever Woodward on 05-17-2024 Hemoglobin (Bld) [Mass/Vol] 13.3 g/dL Normal 11.8-15.4 [facility] Comment on above: Performed By: #### B DEIDRA, CBC #### [address] Leukocytes [#/volume] correc vladimir for nucleated erythrocytes in Blood by Automated counOrdered By: Ever Woodward on 05-17-2024 WBC corrected for nucl RBC Auto (Bld) [#/Vol] 6.6 10*3/uL 3.8-11.6 [facility] Leukocytes [#/volume] in Blo od by Automated countOrdered By: Ever Woodward on 05-17-2024 WBC (Bld) [#/Vol] 6.6 10*3/uL Normal 3.8-11.6 [facility] Comment on above: Performed By: #### B DEIDRA, CBC #### [place] [address] [place] Lymphocytes [#/volume] in Bl ood by Automated countOrdered By: Ever Woodward on 05-17-2024 Lymphocytes (Bld) [#/Vol] 1.1 10*3/uL Normal 1.00-4.8 [facility] Comment on above: Performed By: #### B MP, CBC #### [address] Lymphocytes/100 leukocytes i n Blood by Automated countOrdered By: Ever Woodward on 05-17-2024 Lymphocytes/100 WBC (Bld) 16.3 % Normal . [facility] Comment on above: Performed By: #### B MP, CBC #### [address] MCH [Entitic mass] by Automa vladimir countOrdered By: Ever Woodward on 05-17-2024 MCH (RBC) [Entitic mass] 31.0 pg Normal 24.7-34.3 [facility] Comment on above: Performed By: #### B MP, CBC #### [address] MCHC Auto (RBC) [Mass/Vol]Or dered By: Ever Woodward on 05-17-2024 MCHC (RBC) [Mass/Vol] 35.0 g/dL 32.0-35.0 [facility] MCV [Entitic volume] by Auto mated countOrdered By: Ever Woodward on 05-17-2024 MCV (RBC) [Entitic vol] 88.4 fL Normal 80-100 [facility] [place] Comment on above: Performed By: #### B DEIDRA, CBC #### [address] Neutrophils [#/volume] in Bl ood by Automated countOrdered By: Ever Woodward on 05-17-2024 Neutrophils (Bld) [#/Vol] 4.9 10*3/uL Normal 1.8-7.7 [facility] Comment on above: Performed By: #### B MP, CBC #### [address] No Panel InformationOrdered By: Ever Woodward on 05-17-2024 Estimated GFR (CKD-EPI) > 60.0 mL/Min [facility] Creatinine Clearance (Chem N/A [facility] Nucleated erythrocytes [Pres ence] in Blood by Automated countOrdered By: Ever Woodward on 05-17-2024 Nucleated RBC Auto Ql (Bld) 0.1 /100{WBC} 0-0.5 [facility] Platelet mean volume [Entiti c volume] in Blood by Automated countOrdered By: Ever Woodward on 05-17-2024 Platelet mean volume (Bld) [Entitic vol] 7.5 fL Normal 6.3-10.7 [facility] Comment on above: Performed By: #### B MP, CBC #### [facility] [address] [place] [address] [place] Platelets [#/volume] in Bloo d by Automated countOrdered By: Ever Woodward on 05-17-2024 Platelets (Bld) [#/Vol] 259 10*3/uL Normal 150-450 [facility] Comment on above: Performed By: #### B MP, CBC #### [facility] [address] [place] [address] [place] Potassium [Moles/volume] in Serum or PlasmaOrdered By: Ever Woodward on 05-17-2024 Potassium [Moles/Vol] 4.2 mmol/L Normal 3.5-5.1 [facility] Comment on above: Performed By: #### B MP, CBC #### [facility] [address] [place] [address] Serum or plasma anion gap de terminationOrdered By: Ever Woodward on 05-17-2024 Anion gap [Moles/Vol] 10.3 mmol/L Normal 6.0-15.0 [facility] Comment on above: Performed By: #### B MP, CBC #### [facility] [address] [place] [address] [place] Sodium [Moles/volume] in Ser um or PlasmaOrdered By: Ever Woodward on 05-17-2024 Sodium [Moles/Vol] 139 mmol/L Normal 136-145 [facility] Comment on above: Performed By: #### B MP, CBC #### [facility] [address] [id number] [facility] Urea nitrogen [Mass/volume] in Serum or PlasmaOrdered By: Ever Woodward on 05-17-2024 Urea nitrogen [Mass/Vol] 12 mg/dL Normal 7-25 [facility] Comment on above: Performed By: #### B MP, CBC #### [facility] [address] [id number] [facility] Gastroenterology Office/Clin ic Noteon 12-20-2023 Gastroenterology Office/Clinic [...] cm, empiric esophageal dilation performed using 58 Trinidadian Foster dilator 2. Normal gastric mucosa, random [...] had negative impedance test in 2019 in [place] per her report Suspect hypersensitivity 3. Nausea [...] Garcia, GAIL, MED Within 3 months [address], [address] [phone] Additional Instructions: Problem Lis (more content not included)... [facility] Comment on above: Result Comment: Elec tronically Signed By: Luis CLINE, Viral Garcia\.br\Date and Time Signed: 12/20/23 11:57 EDT\.br\Electronically Co-Signed By: Kathleen Pinon MA\.br\Date and Time Co-Signed: 12/20/23 11:55 EDT Beth 10-29-2023 CNPN Telephone (NECVS8) MARIANNA RAMIREZ ([id number]) 1975 F Date Time Provider Department 2/23/24 ALICIA BOLIVAR NECVS8 During your visit today, we recorded the following information about you: Rina Lord 10/29/2023 4:48 PM Signed CV PHONE Name of caller : Avis Relationship to patient : [facility] If not self Will need patient permission to release results or disclose health information with called documented in fyi. Patient identified by Name and Date of . ( Marianna Ashley, 1975). Yes Number to return call [phone] Reason for Call: Avis is calling from [facility] to obtain notes and information for prior Auth of MRI WO IVCON. Sent: Thank you calling [facility]. You will receive a return call within [...] 2:24 PM Signed Received faxes from [facility] with results Jatinder Valle RN 11/15/2023 9:55 AM Signed Returned fax with cover letter stating below: Thank you for the MRI report, please push images electronically to [facility] for further review by Dr. Bolivar's office. Thanks! Jatinder Valle RN [phone], option [phone] Allergies As of Date: 10/29/2023 [...] Encounter Status:Closed by RINA LORD on 10/29/23 [facility] 10-25-2023 [facility] Telephone (NECVS8) MARIANNA RAMIREZ ([id number]) 1975 F Date Time Provider Department 10/25/23 [...] Ramirez, 1975). Yes Number to return call [phone] Reason for Call: Symptoms Call: Symptoms: headache [...] something else going on. Thank you calling [facility]. You will receive a return call within [...] per via [employer] on Wednesday10/26/2023 tracking # [id number] Allergies As of Date: 10/25/2023 Noted Allergy Reaction GADOLINIUM-CONTAININ G CONTRAST ME*04/14/2023 10 - Anaphylaxis Comments: Throat closing and coughing post MRI with MINI even with premed Date Reviewed: 06/21/2018 Reviewed by: Charles Gutierrez (Swaging Machine Adjuster), BUYER INTERN - Fully Assessed Reason for Visit: Symptoms [...] Encounter Status:Closed by CARMITA GIRALDO on 10/25/23 [facility] Ambulatory Visit Summaryon 0 05-04-2023 Ambulatory Visit [...] any. Fruits (more content not included)... [facility] Gastroenterology Office/Clin ic Noteon 05-04-2023 Gastroenterology [...] Previous labs (more content not included)... [facility] Comment on above: Result Comment: Elec tronically Signed By: Jessica Lopez CNP.sumit\Date and Time [...] grapefruit, pineapple, and jeff. Vegetables Deep-fried vegetables. Trinidadian fries. Any vegetables prepared with added fat. [...] reflux di (more content not included)... Normal [facility] MARIANNA RAMIREZ ([id number]) 1975 F Date Time Provider Department 04/12/23 [...] Ramirez, 1975). Yes Number to return call [phone] Reason for Call: Patient Question/Update: Marianna is calling to say she developed an allergy to contrast and cannot have MRI W/WO. Also she would like to know if she can have it done locally. Please call. Thank you calling [facility]. You will receive a return call within [...] Status:Closed by JATINDER VALLE on 04/14/23 Normal [facility] Provider Letteron 01-28-2023 Provider Letter January 28, 2023 MARIANNA RAMIREZ [address] [place] [phone] : 1975 Dear Marianna , We have been trying to reach you with no success. It is important that you return our call regarding your ultrasound results upon receiving this letter. Also, at the time of your call, please provide us with your current information. Thank you for your prompt attention to this matter. Sincerely, [facility] [phone] [facility] RAD - Ultrasound Reporton RAD - Ultrasound Report [id number] #1.00CD:127 [facility] Gastroenterology Office/Clin ic Noteon 01-13-2023 Gastroenterology [...] was negative. Patient reported during visit with me 12/2022 that over the last 4 months [...] changes, gastric (more content not included)... [facility] Comment on above: Result Comment: Elec tronically Signed By: Jessica Lopez CNP\.br\Date and Time Signed: 01/13/23 10:40 EDT Patient [...] these instructions at home: Medicines ? Take fbob-lmt-ymvekpn and prescription medicines only as told by your health care provider. ? If you were prescribed an antibiotic medicine, take it as told by your health care provider. Do not stop taking the antibiotic even if you start to feel better. Eating and drinking ? Make any diet changes as told by your health care provider. ? Work with a diet and nutrition associate (dietitian) to create an eating plan that [...] person's throa (more content not included)... [facility] Lab Reportson 01-12-2023 Lab Reports [id number] #1.00CD:127 [facility] Reportson 01-07-2023 Lab Reports [id number] 1.00CD:127 [facility] IntraOperative Documentson 0 01-01-2023 IntraOperative Documents [id number]#1.00CD:127 [facility] Postoperative Documentson Postoperative Documents [id number]#1.00CD:127 [facility] Coding Summary.on 12-30-2022 Coding Summary. CD:[id number] Ww+PGhlYWQ+CF1EHFPoN 77ffPMpyW7nD2YUFRtWS ywgQVBQTElOSyIgbmFtZ S0mxWFyERYs IC8+TF7mOLRoVbfmjUGa q1P4hUZ0U28vmc3zURjp iJA6RREpAzVjnienr7lt nXr5QCvhKxizLgOo YRSndU65RPO7wC00Ex13 sIOrcDDhd6pohCg1MfBa WEYiGMX2bHhiRIuqz4Ly FNNxG26gkRDue9E8 IGNvbGxhcHNlOyBlbXB0 hN0iIPskwtobm7rgftzd Clx6wi09jGCax1R1aRE7 H4OsbmF0RFPqgBFq DriakESVvW2vwbkrs4we hezjLxGuVFTtYKx9BPc3 SCUtlXsgZrZtJK36YFH9 AGNkvxLxI4IhGNOi eZcySqG8y6X4Eo6DQ0NR XhcwT4MNYEKXYUqcnXR+ FI14yo80Z3ZvWygcMtu6 VPYbKDJ4uQV4fY4f FGSlHRuam7N6hEE4A6Hr stSbws0kq3wdGAElSNkx J08sbTBcc5G7DPRlgJH1 XGHkaRlnAkEebO72 Oyc+GNXlzKswp6KkNzta v7anb5sypTx6SxcrIACn bcJzpWdxEEM9x6UvAe0u KMFzbVU5zXA0qW5z IeEoKeS7QSmuI809QcCg uXPdRpmpG73vQ6VmaHS+ ADBpMcs1EBXfkQjbYI8j K5LkEWGjxwrjvPQh nVsgDR5qFKJrawrdEEEf xN0gGISpN2n4WnYdHaV7 VMxhH5TuVKKoffvpYz16 zT9zHvMgUlC8EXyp M9ExawT4EVRwuJQdADdc OWY0O79lx9U0LJVuNVGt GVK5sRP4kU0ktPnlrtpn bGVmdDsgdmVydGlj EUjnWMgzC344VGOnoXdz PkNvZGluZyBEYXRlOiAg MDQvMjYvMjAyMzwvdGQ+ BKXdFDT5zDfbQTOc vXUwJOjlGg6iwNdrpXjl RP0vDMHrhodjVGPpmT9q WCUhdFXriIixEG6kPOWl jxlkx204RqVcRHY4 OSFrmNLrI2GvoN3kRiCq AZQzARBrG8JcwJLdEGnl V751KWzuDrW3LAUdldYo B5RyCPUbyXwrIoF9 x5V1Ei9Gt1NhrjadL3Ok rCOkIbPhNfuyUUa0C7Dc PjwvdHI+EZ18PRVqYR64 SGx1XUS7nDksZMza OQRtL8BisK5sCcZgTPJj ZGRkOyc+PHRhYmxlIHdp ZHRoPScxMDAlJyBzdHls VI3jAl0xHMBsYZEv iPpmfOVuBhPph2mtJUVl ZDqhHK5lcGxhU1KmlIW0 FWCty0r1Ik19U63pV1Fx dXA+QQLniQX4gAR8 oL4bZqVdLgW0XWtuA511 QeVhwPRxWqggf8hxb2bl nPd8LeG6SNEmxhXafOls HNK4w2SyOy09J93h IHdpZHRoPSIxNSUiIHZh pNtfjc5veC9sBp1+PGNv aXO8vWA0gI4mAnFhRfI0 MBvxM364HhJpkYWe Cuubs2mio5sbjWy1NjGh HUInvpGvySplGQJ1b8Zl Vm21Q4BmzHtgq7ZvHdk3 uy85sBShf8O3jUR0 B9QyREGdakmklNFanOlb NS1cUNKklzreNGXsbI7v HEXsS2e3AlPcIpE5YDwh W2HumrT2EKVvqLOw GTDccUODlL7qrgyee6en lrjhAjIuARLcZTz8SHh7 XSUxsJqkIfHvMUL8OtL3 AGX0yRLlfD2qpOlj znkxcE2lHgj+LOP0zVRa bPFSYI5zCeogpIZ+PHRk MWE6oQmcRZaaKDNddK1h CUPqL4w4JoBfAyI6 MPhgD0YvsaQ7RLCilMRl SWEfyRLFqD5adltee7lb xyonMkFzZXGhIQe4XPp8 LWFsaWduOiBsZWZ0 PvH8MMM2cLFtrA8ynAic yeivtC2aVle+QmlydGgg DPT3UZh0E5QmNii6CKYq uOwfYS4jtXGvPBha Hu5lxDojjCdnZT9iBAEi fmlap742KlWep0slBEQv mXOhDDkdDBC9Y69rj9Q4 CEPoPLJqIPB4zBY7 zE5eoOgosyksmBNrnQnj jdSvdLywCCpcQXdhQ472 WYGecQvaRzWgZRa9A5Ql Wxi7PEBzoVirVD5n iQWrAQjrSv3zgGjbcDfr DT2tUHXzekmcd584ZbZf x5cjATZinTGuBJdqZGV5 J42nt6O8KWAcBFEk BRC6nFV4pU3tdNqimlbz bGVmdDsgdmVydGljYWwt TTawS642EQIqmJcjCfWz kDs6F4OiJro8DIXx oRcyGL8vwCRrQMcdOw1m aJomeMwkZA0zXOHkcqwq k056BlZzz4gwOVUpeTAb BLvlWNH0T66vz0M0 EMAhDHNtSEO5xDR2hD4o bGlnbjogbGVmdDsgdmVy wJlbGNzgUMwhY131SSJr cDsnPlBhdGllbnQg KLjxHLo2S2TfSdpoyRW+ QM03RTIcSV31pFYhuXLm y8ysxBr2YzSbTRAoTFZ0 eEoaUSlmi6SfHNKx T25leILwe3H0XXRmcHdo yYWcPxEqqVD2hJ4aQLsv bnsrk5tlhzikUpvui3uk bf65wA72U59oQBhi ZHRoPSIzMCUiIHZhbGln vm4urU2lCr4+PGNvbCB3 xRU6wH4oDDIfXuR7OErc I267NiLpsLOkEbyt y7tcb5dcaJj3LnY2TOEj koZadNdnUWK1a7WcBc44 G18pSAkxCXJbLZSdHHDg UVLbyLchtc7djN4q Ii8+JMZpfFU4kIP6bW9f BcLcQgZ6VEhzY294HnQi kTFrYcavB32cL8XniWU+ QYUmGjc6LGQbqTtu BR9aeBGwBAktRc2sTXV4 KsIxXnTePZmzI2DlZFPc dncnsgvnnQB5GYNeFFDk cM04Pt9rqGsgAEEt vKRXyA4bwyjus9gyxhpi UnIhEIQwNLv4FEz7CPLt kBxtOtYmZKQ8SzJ2IMQ1 dRRzrH1ddUpuuond lI2iW1BpYFKosfeeQh98 pW5zVvRlQjK5CUvjXrm+ QCIONoMGGBzaYLiCV2TU VA34OH29xOPbe3T3 qLA5X7JfBTTflsuzqgsq pJT6USVrVPEwlW02dVYh HMwnTa5oh4E3w784KNOf GSWneA73Rv2dqPgi NPGqpEMMmF0rjfrjz7ys cnclZvHfVVBcOFy5WRt4 UZQhcUcxMzJcYMG0SoY6 NYO3yCQirD5xgPqc slsiyE1sNvq+MDkvMDMv OZg2CUrikBC+PHRkIHN0 rEmzIQcqGWRckN4wGZTd H6k1ReCyUhI0FPyp U7BkCLIcylcpAg34qL4r GcWwKsV1LQppW5VryuT7 HTUdxHGbPUhkTRF9O24s u5Z0XVClRQWjSYB6 xJX7sU9qwYvtvymzaDAp dDsgdmVydGljYWwtYWxp B854VQNfsJovQuK0QEjc RCCzRZ42DK23gWJr n3L5qLC5A4RpWICoqqui vensvQL9ASBnVDXapR43 sTMtDNlaSr7vo9K2c507 XOQhAWKzlE27Vz1z fVppCUGunISSbY2ejtjm c3vvlhgbZeLdWFHjEKy9 TJg0NIFpdBqcQwIjUGH7 EmE6QXQ8xBPsyN5d lCxksczyjN6bEim+RmVt ZHvmQX03LO88tIBwt2F3 xWZ1C3FiWOAfzdkehede hPS0KUXrRKGyeS56 mYWiTJocGi0kj5S6j143 SWBdQETpvX53Fb1xkIgf BCNkcPWLxE4ibenhm6lv cjogIzAwMDAwMDt0 FNl7OAAeeXzvBjRsZJV3 UdQ8RMS0zUGzgJ1hpBto oetxpW1sLbf+N9P8fCV3 aWVudDwvdGQ+PC90 pl95M6AqPoaeMox3ZRLt EEH8lLG2hL6tWWPmVIjx a0D6uBI4W9EpweFlap6q x4guGQSrZUhrD29v qMNci3W4FLHbbXI7BQMg wZisNpOvxE03Rqh+PGNv nSsrh6RjDoftn9tom1sv gSk4GfIxYZHsinEi iVoyQXF5i0CyJf38S60i IHdpZHRoPSIzMCUiIHZh kBulpf1bvQ1aZb9+PGNv tYJ6aSN4jP9oLvXk GoH6YMvmJ441ObZdmQJm Kfqtt9lhj6wbwCy4EyPy HDUdttPtlVbtYMN9i1Ae Mz46L0KzqHsul7Oa Nte6aw04tEPak8G6pOM8 K1NeTIKgshbgyDSovNlj XM1oGHSzqejuOOCqbO2v GYNwK3h1GcEgJiF3 JTwqF8ZgojA8MPWceWOm SXPayBZUoI9dpbvht8la tabwEeNuJIKzAJo6NGk1 LWFsaWduOiBsZWZ0 OzS6WZN9zSCtdJ7epNzi aazyuP9mTtw+TZp1u8yj fJYtFJ9edYH0WG93TA92 lMBnw7L0mNP9Y6Ja YKIrgkmlbbvswKB9NZPi UVUzxV53Qf5kxTaiPr7o HIKfFRQ5DQFcnDCxO1Ei xF4aRxOdZWHhNETn B3GtoEWxJQbbE094DYnw IkZ6HIKaslJjJ2EeKOGn nXelVlQ2v8Z2Fn1HEM60 XI54MK22xBZkm8N1 aSA6Y6ShPUIfvelotyly mWW4FRSeVPUzlD34Ju8m vNtbRl1nHIEoBWI1UAOb aPMcM0NtiF8mBfOn LGQnXMMrY3HlmBKkBYus T247EOoeUkM3RZCdqvUz D3HgEZKxbFaoHhQ6j0Z7 Bs5HKy08GD66HA86 sSBal0G3cWZ2P0ZfUGVy dxnbpoexoXP3IIPgFMOt vC66Mz1fqBrjLj4qEVNm DLE2DKPslDRiM3Ts hU4oZdVeXDOfDZBhR6Nz tHLpMOuyI941VPtvNmO8 FEJklmGgI5MbBUHjmYtk QfU3k6V3Lk5MTIkh een5E6MfLmuxrFL+PC90 ZPQuSI34gZDrgDJqk0mg kLk0SoYcFDBlLXP8sAqt TZvcl5SnFRObV79z lCOuk4P6 (more content not included)... [facility] Consenton 12-30-2022 Consent [id number] 6#1.00CD:127 [facility] Discharge Instructionson Discharge Instructions [id number]#1.00CD:127 [facility] OVA AND PARASITE EXAMINATION on 12-30-2022 Ova + Parasite Exam Final report Normal [facility] Comment on above: Result Comment: Thes e results were obtained using wet preparation(s) and trichrome stained smear. This test does not include testing for Cryptosporidium parvum, Cyclospora, or Microsporidia. Performed By: #### C BC #### [facility] [address] [place] [address] Dr. Belkis Ascencio Result 1 Comment Normal [facility] Comment on above: Result Comment: No o va, cysts, or parasites seen. . One negative specimen does not rule out the possibility of a parasitic infection. Performed By: #### C BC #### [facility] [address] [place] [id number] [address] Belkis Ascencio Main OR Intraoperative Recor don 12-29-2022 Main OR Intraoperative Record IntraOp Document Type FT Summary Primary Physician: Petty AMBROSE MD Finalized Date/Time: 12/29/22 13:14:21 Pt. Name: MARIANNA RAMIREZ /Sex: 1975 Female Med Rec #: [id number] Physician: Petty AMBROSE MD Financial #: [id number] Pt. Type: O Room/Bed: / Admit/Disch: 12/28/22 [...] Guy CLINE, Frank Colon RN, Kalpesh Urrutia ACCOUNT EXECUTIVE [employer] SALES, Parvin Kearney Role Performed Anesthesiologist of Batch Heat Treat Operator - Primary Scrub - Primary Record [...] Arm P (more content not included)... [facility] Consent for Treatmenton 12-06 Consent for Treatment [id number] #1.00CD:127 [facility] Endoscopic Procedure Report - Otheron 12-28-2022 [...] cm, empiric esophageal dilation performed using 58 Trinid[place] Foster dilator 2. Normal gastric mucosa, random [...] cm, empiric esophageal dilation performed using 58 Trin[place] Foster dilator 2. Normal gastric mucosa, random biopsies obtained from antrum, incisura, gastric body and fundus 3. Normal duodenum Recommendations: 1. Awaiting pathology report. 2. GI clinic follow-up in 2 weeks [facility] Comment on above: Result Comment: Elec tronically Signed By: MONSERRAT CLINE, Petty\.br\Date and Time Signed: 12/28/22 10:38 EDT Other Comment: Chaparrita howard Attachment - attachment storage system not supported [id number] Can be viewed in source systemMissing Attachment - attachment storage system not supported [id number] Can be viewed in source systemMissing Attachment - attachment storage system not supported [id number] Can be viewed in source systemMissing Attachment - attachment storage system not supported [id number] Can be viewed in source systemMissing Attachment - attachment storage system not supported [id number] Can be viewed in source systemMissing Attachment - attachment storage system not supported [id number] Can be viewed in source system Main OR PACU I Recordon 12-06 Main OR PACU I Record PACU Phase I Document Type FT Summary Primary Physician: Petty AMBROSE MD Finalized Date/Time: 12/28/22 11:26:29 Pt. Name: ASHLEYMARIANNA/Sex: 1975 Female Med Rec #: [id number] Physician: Petty AMBROSE MD Financial #: [id number] Pt. Type: O Room/Bed: / Admit/Disch: 12/28/22 [...] By: Deja Ken RN 12/28/22 11:26 [facility] Main OR Preoperative Recordo n 12-28-2022 Main OR Preoperative Record Holding Area Document Type FT Summary Primary Physician: Petty AMBROSE MD Finalized Date/Time: 12/28/22 10:00:59 Pt. Name: MARIANNA RAMIREZ/Sex: 1975 Female Med Rec #: [id number] Physician: Petty AMBROSE MD Financial #: [id number] Pt. Type: O Room/Bed: / Admit/Disch: 12/28/22 [...] By: Tess Cummins RN 12/28/22 10:00 [facility] Monitor Recordon 12-28-2022 Monitor Record [id number] 8#1.00CD:127 [facility] Monitor Record [id number]#1.00CD:127 [facility] Progress Note-Physicianon Progress Note-Physician Patient: MARIANNA RAMIREZ Age: 47 years Sex: Female : 1975 Associated Diagnoses: None Author: Guy CLINE, Frank Peralta Postoperative Information Postoperative disposition Optimetrix number: Optimetrix number [id number]. Anesthetic utilized: General. Physical Examination Vital Signs [...] when meets criteria ( To home ). [facility] Comment on above: Result Comment: Elec tronically [...] All Problems Abdominal cramping / SNOMED CT 266822788 / Confirmed Acid reflux / SNOMED CT 779765532 / Confirmed Diarrhea / SNOMED CT 246190870 / Confirmed Dysphagia / SNOMED CT 96073750 / Confirmed RUQ pain / SNOMED CT 969930074 / Confirmed, Active Problems (5) Abdominal cramping [...] in all extremities. Gastrointestinal: Soft, Non-tender. Plan [place] [employer]hesi[employer] (ASA) physical status classification: Class II. Anesthetic Preoperative Plan: Anesthesia General. [facility] Comment on above: Result Comment: Elec tronically Signed By: Guy CLINE, Frank Keenan.br\Date and Time Signed: 12/28/22 17:55 EDT Lab Reportson 12-24-2022 Lab Reports [id number] #1.00CD:127 [facility] Lab Reportson 12-23-2022 Lab Reports [id number] #1.00CD:127 [facility] Consent for Procedure/Surger yon 12-22-2022 Consent for Procedure/Surgery [id number] #1.00CD:127 [facility] GI PANEL (PCR)on 12-22-2022 Adenovirus F 40/41 Not detected Normal NOT DETECTED [facility] Comment on above: Performed By: #### C BC #### [facility] [address] [place] [address] Dr. Belkis Ascencio Astrovirus Not detected Normal NOT DETECTED [facility] Comment on above: Performed By: #### C BC #### [facility] [address] [place] [address] Dr. Belkis Ascencio C. Diff toxin A/B Not detected Normal NOT DETECTED [facility] Comment on above: Performed By: #### C BC #### [facility] [address] [place] [address] Dr. Belkis Ascencio Campylobacter Not detected Normal NOT DETECTED [facility] Comment on above: Performed By: #### C BC #### [facility] [address] [place] [address] Dr. Belkis Ascencio Cryptosporidium Not detected Normal NOT DETECTED [facility] Comment on above: Performed By: #### C BC #### [facility] [address] [place] [address] Dr. Belkis Ascencio Cyclos. Cayetanensis Not detected Normal NOT DETECTED [facility] Comment on above: Performed By: #### C BC #### [facility] [address] [place] [address] Dr. Belkis Ascencio E. Coli O157 Not Applicable Normal Not Applicable [facility] Comment on above: Performed By: #### C BC #### [facility] [address] [place] [address] Dr. Belkis Ascencio E. histolytica Not detected Normal NOT DETECTED [facility] Comment on above: Performed By: #### C BC #### [facility] [address] [place] [address] Dr. Belkis Ascencio EAEC Not detected Normal NOT DETECTED [facility] Comment on above: Performed By: #### C BC #### [facility] [address] [place] [address] Dr. Blekis Ascencio EIEC Not detected Normal NOT DETECTED [facility] Comment on above: Performed By: #### C BC #### [facility] [address] [address] [address] Belkis Ascencio EPEC Not detected Normal NOT DETECTED [facility] Comment on above: Performed By: #### C BC #### [facility] [address] [place] [address] Dr. Belkis Ascencio ETEC Not detected Normal NOT DETECTED [facility] Comment on above: Performed By: #### C BC #### [facility] [address] [address] [address] Belkis Petersonlitra Not detected Normal NOT DETECTED [facility] Comment on above: Performed By: #### C BC #### [facility] [address] [place] [address] Dr. Belkis ARRIAZA CONTROLS PASSED Normal [facility] Comment on above: Performed By: #### C BC #### [facility] [address] [place] [address] Dr. Belkis SAMUELS HEADER GI PANEL BACTERIA Normal [facility] Comment on above: Performed By: #### C BC #### [facility] [address] [place] [address] Dr. Belkis WU ECOLI GI PANEL DIARRHEAGENIC E.COLI / SHIGELLA Normal [facility] Comment on above: Performed By: #### C BC #### [facility] [address] [place] [address] Dr. Belkis WU INFO SEE BELOW Normal [facility] Comment on above: Result Comment: EAEC - Enteroaggregative E. Coli EPEC- Enteropathogenic E. Coli ETEC- Enterotoxigenic E. Coli lt/st STEC- Shigella-like toxin-producing E. Coli stx1/stx2 EIEC- Shigella/Enteroinvasive E. Coli Performed By: #### C BC #### [facility] [address] [place] [address] Dr. Belkis WU PARASITES GI PANEL PARASITES Normal [facility] Comment on above: Performed By: #### C BC #### [facility] [address] [place] [address] Dr. Belkis MARQUESNLHD VIRUS GI PANEL VIRUSES Normal [facility] Comment on above: Performed By: #### C BC #### [facility] [address] [place] [address] Dr. Belkis Ascencio Norovirus GI/GII Not detected Normal NOT DETECTED [facility] Comment on above: Performed By: #### C BC #### [facility] [address] [place] [address] Dr. Belkis Ascencio P. Shigelloides Not detected Normal NOT DETECTED [facility] Comment on above: Performed By: #### C BC #### [facility] [address] [place] [address] Dr. Belkis Ascencio Rotavirus A Not detected Normal NOT DETECTED [facility] Comment on above: Performed By: #### C BC #### [facility] [address] [place] [address] Dr. Belkis Ascencio Salmonella Not detected Normal NOT DETECTED [facility] Comment on above: Performed By: #### C BC #### [facility] [address] [place] [address] Dr. Belkis Ascencio Sapovirus Not detected Normal NOT DETECTED [facility] Comment on above: Performed By: #### C BC #### [facility] [address] [place] [address] Dr. Belkis Ascencio STEC Not detected Normal NOT DETECTED [facility] Comment on above: Performed By: #### C BC #### [facility] [address] [place] [address] Dr. Belkis Ascencio Vibrio Not detected Normal NOT DETECTED [facility] Comment on above: Performed By: #### C BC #### [facility] [address] [place] [address] Dr. Belkis Ascencio Vibrio Cholera Not detected Normal NOT DETECTED [facility] Comment on above: Performed By: #### C BC #### [facility] [address] [place] [address] Dr. Belkis Ascencio Y. Enterocolitica Not detected Normal NOT DETECTED [facility] Comment on above: Performed By: #### C BC #### [facility] [address] [address] [address] Belkis Ascencio RAD - Ultrasound Reporton RAD - Ultrasound Report [id number] Normal [facility] US SINGLE QUAD RT UPPERon US [...] GABRIELA CONKLIN Date: 2022-12-22 12:18 Normal [facility] Ambulatory Visit Summaryon 0 12-21-2022 [...] serving. ? Talk with a diet and nutrition associate (dietitian) if you have questions about specific [...] Avocado. Pr (more content not included)... Normal [facility] CBC AUTO DIFFon 12-21-2022 BASO # 0.0 103/ul Normal 0.0-0.1 [facility] Comment on above: Performed By: #### C BC #### [facility] [address] [place], [place] [address] Dr. Belkis Ascencio Basophils/100 WBC (Bld) 0.2 % Normal 0.2-2.0 [facility] Comment on above: Performed By: #### C BC #### [facility] [address] [place], [place] [address] Dr. Belkis Ascencio EO # 0.1 103/ul Normal 0.0-0.7 [facility] Comment on above: Performed By: #### C BC #### [facility] [address] [place] [address] Dr. Belkis Ascencio Eosinophils/100 WBC (Bld) 0.8 % Critically low 0.9-7.0 [facility] Comment on above: Performed By: #### C BC #### [facility] [address] [place] [address] Dr. Belkis Ascencio Erythrocyte distribution width (RBC) [Ratio] 11.8 % Normal 11.0-15.0 [facility] Comment on above: Performed By: #### C BC #### [facility] [address] [place] [address] Dr. Belkis Ascencio Hematocrit (Bld) [Volume fraction] 38.2 % Normal 36.0-48.0 [facility] Comment on above: Performed By: #### C BC #### [facility] [address] [place] [address] Dr. Belkis Ascencio Hemoglobin (Bld) [Mass/Vol] 13.2 g/dL Normal 12.0-16.0 [facility] Comment on above: Performed By: #### C BC #### [facility] [address] [place] [address] Dr. Belkis Ascencio IG # 0.03 10e3/ul Normal 0.00-0.03 [facility] Comment on above: Performed By: #### C BC #### [facility] [address] [place] [address] Dr. Belkis Ascencio IG % 0.3 % Normal 0.0-0.5 [facility] Comment on above: Performed By: #### C BC #### [facility] [address] [place] [address] Dr. Belkis Ascencio LYMPH # 1.9 103/ul Normal 1.2-3.8 [facility] Comment on above: Performed By: #### C BC #### [facility] [address] [place] [address] Dr. Belkis Ascencio Lymphocytes/100 WBC (Bld) 21.0 % Normal 20.5-60.0 [facility] Comment on above: Performed By: #### C BC #### [facility] [address] [place] [address] Dr. Belkis Ascencio MANUAL DIFF REQ NO Normal [facility] Comment on above: Performed By: #### C BC #### [facility] [address] [place] [address] Dr. Belkis Ascencio MCH (RBC) [Entitic mass] 30.9 pg Normal 26.7-34.0 [facility] Comment on above: Performed By: #### C BC #### [facility] [address] [place] [address] Dr. Belkis Ascencio MCHC (RBC) [Mass/Vol] 34.6 g/dL Normal 29.9-35.2 [facility] Comment on above: Performed By: #### C BC #### [facility] [address] [place] [address] Dr. Belkis Ascencio MCV (RBC) [Entitic vol] 89.5 fL Normal 81.0-99.0 [facility] Comment on above: Performed By: #### C BC #### [facility] [address] [place] [address] Dr. Belkis Ascencio MONO # 0.7 103/ul Normal 0.3-0.8 [facility] Comment on above: Performed By: #### C BC #### [facility] [address] [place] [address] Dr. Belkis Ascencio Monocytes/100 WBC (Bld) 7.8 % Normal 1.7-12.0 [facility] Comment on above: Performed By: #### C BC #### [facility] [address] [place] [address] Dr. Belkis Ascencio NEUT # 6.5 103/ul Normal 1.4-6.5 [facility] Comment on above: Performed By: #### C BC #### [facility] [address] [place] [address] Dr. Belkis Ascenico Neutrophils/100 WBC (Bld) 69.9 % Normal 43.0-75.0 [facility] Comment on above: Performed By: #### C BC #### [facility] [address] [address] [address] Belkis Ascencio Platelet mean volume (Bld) [Entitic vol] 9.6 fL Normal 9.5-13.5 [facility] Comment on above: Performed By: #### C BC #### [facility] [address] [place] [address] Dr. Belkis Ascencio PLT 264 103/ul Normal 150-450 [facility] Comment on above: Performed By: #### C BC #### [facility] [address] [place] [address] Dr. Belkis Ascencio RBC 4.27 106/ul Normal 4.20-5.40 [facility] Comment on above: Performed By: #### C BC #### [facility] [address] [place] [address] Dr. Belkis Ascencio WBC 9.3 103/ul Normal 4.0-11.0 [facility] Comment on above: Performed By: #### C BC #### [facility] [address] [place] [address] Dr. Belkis Ascencio Gastroenterology Office/Clin ic Noteon [...] Enteric Pane (more content not included)... Normal [facility] Comment on above: Result Comment: Elec tronically Signed By: Jessica Lopez CNP\.sumit\Date and Time Signed: 12/21/22 13:18 EDT PROF 14(COMP METB)on 023 Albumin [Mass/Vol] 4.0 g/dL Normal 3.4-5.0 [facility] Comment on above: Performed By: #### C MP #### [facility] [address] [place] [address] Dr. Belkis Ascencio Albumin/Globulin [Mass ratio] 1.0 {ratio} Normal [facility] Comment on above: Performed By: #### C MP #### [facility] [address] [place] [address] Dr. Belkis Ascencio ALP [Catalytic activity/Vol] 43 U/L Critically low 46-116 [facility] Comment on above: Performed By: #### C MP #### [facility] [address] [place] [address] Dr. Belkis Ascencio ALT [Catalytic activity/Vol] 18 U/L Normal 14-59 [facility] Comment on above: Performed By: #### C MP #### [facility] [address] [place] [address] Dr. Belkis Ascencio Anion gap [Moles/Vol] 9.5 mmol/L Normal [facility] Comment on above: Performed By: #### C MP #### [facility] [address] [place] [address] Dr. Belkis Ascencio AST [Catalytic activity/Vol] 13 U/L Critically low 15-37 [facility] Comment on above: Performed By: #### C MP #### [facility] [address] [place] [address] Dr. Belkis Ascencio Bilirubin [Mass/Vol] 0.3 mg/dL Normal 0.2-1.0 [facility] Comment on above: Performed By: #### C MP #### [facility] [address] [place] [address] Dr. Belkis Ascencio Calcium [Mass/Vol] 9.2 mg/dL Normal 8.5-10.1 [facility] Comment on above: Performed By: #### C MP #### [facility] [address] [place] [address] Dr. Belkis Ascencio Chloride [Moles/Vol] 104 mmol/L Normal 98-107 [facility] Comment on above: Performed By: #### C MP #### [facility] [address] [place] [address] Dr. Belkis Ascencio CO2 [Moles/Vol] 29.4 mmol/L Normal 21.0-32.[address] [facility] Comment on above: Performed By: #### C MP #### [facility] [address] [address] [address] Belkis Ascencio Creatinine [Mass/Vol] 0.68 mg/dL Normal 0.55-1.02 [facility] Comment on above: Performed By: #### C MP #### [facility] [address] [address] [address] Belkis Ascencio EGFR-AF ANGUILLAN >60 Normal >=[address] [facility] Comment on above: Performed By: #### C MP #### [facility] [address] [place] [address] Dr. Belkis Ascencio EGFR-NON AF ANGUILLAN >60 Normal >=60 [facility] Comment on above: Performed By: #### C MP #### [facility] [address] [place] [address] Dr. Belkis Ascencio Globulin (S) [Mass/Vol] 4.2 g/dL Normal [facility] Comment on above: Performed By: #### C MP #### [facility] [address] [place] [address] Dr. Belkis Ascencio Glucose [Mass/Vol] 92 mg/dL Normal 74-106 [facility] Comment on above: Performed By: #### C MP #### [facility] [address] [place] [address] Dr. Belkis Ascencio Potassium [Moles/Vol] 3.9 mmol/L Normal 3.5-5.1 [facility] Comment on above: Performed By: #### C MP #### [facility] [address] [place] [address] Dr. Belkis Ascencio Protein [Mass/Vol] 8.2 g/dL Normal 6.4-8.2 [facility] Comment on above: Performed By: #### C MP #### [facility] [address] [place] [address] Dr. Belkis Ascencio Sodium [Moles/Vol] 139 mmol/L Normal 136-145 [facility] Comment on above: Performed By: #### C MP #### [facility] [address] [place], [place] [address] Dr. Belkis Ascencio Urea nitrogen [Mass/Vol] 15.0 mg/dL Normal 7.0-18.0 [facility] Comment on above: Performed By: #### C MP #### [facility] [address] [place], [place] [address] Dr. Belkis Ascencio Urea nitrogen/Creatinine [Mass ratio] 22.1 mg/mg Normal [facility] Comment on above: Performed By: #### C MP #### [facility] [address] [place], [place] [address] Dr. Belkis Ascencio Patient Educationon 12-22-19 23 [...] serving. ? Talk with a diet and nutrition associate (dietitian) if you have questions about specific [...] Bulgur wheat. Millet. Quinoa. Bran muffins. Popcorn. [place] wafer crackers. Meats and other proteins [place], kidney, and aparicio beans. Soybeans. Split peas. [...] Cream cheese. Sour cream. Fats and oils [place]. Beverages Soft drinks. Other foods Cakes and [...] 08/23/2006 Document Revised: 06/27/2018 Document Reviewed: 06/27/2018 [employer] Patient Education ? 2020 [employer] Normal [facility] BUNon 12-19-2022 Urea nitrogen [Mass/Vol] 16.0 mg/dL Normal 7.0-18.0 [facility] Comment on above: Performed By: #### B UN, CREA, LIPID, ELEC #### [facility] [address] [address] [address] Belkis Ascencio CREATININEon 12-19-2022 Creatinine [Mass/Vol] 0.87 mg/dL Normal 0.55-1.02 [facility] Comment on above: Performed By: #### C BC #### [facility] [address] [address] [address] Belkis Ascencio EGFR-AF ANGUILLAN >60 Normal >=[address] [facility] Comment on above: Performed By: #### C BC #### [facility] [address] [address] [address] Belkis Ascencio EGFR-NON AF ANGUILLAN >60 Normal >=60 [facility] Comment on above: Performed By: #### C BC #### [facility] [address] [address] [address] Belkis Ascencio ELECTROLYTESon 12-19-2022 Anion gap [Moles/Vol] 10.4 mmol/L Normal [facility] Comment on above: Performed By: #### C BC #### [facility] [address] [address] [address] Belkis Ascencio Chloride [Moles/Vol] 105 mmol/L Normal 98-107 [facility] Comment on above: Performed By: #### C BC #### [facility] [address] [place] [address] Dr. Belkis Ascencio CO2 [Moles/Vol] 28.4 mmol/L Normal 21.0-32.0 [facility] Comment on above: Performed By: #### C BC #### [facility] [address] [place] [address] Dr. Belkis Ascencio Potassium [Moles/Vol] 3.8 mmol/L Normal 3.5-5.1 [facility] Comment on above: Performed By: #### C BC #### [facility] [address] [place] [address] Dr. Belkis Ascencio Sodium [Moles/Vol] 140 mmol/L Normal 136-145 [facility] Comment on above: Performed By: #### C BC #### [facility] [address] [place] [address] Dr. Belkis Ascencio LIPID PROFILEon 12-19-2022 CHOL-HDL RATIO NORM SEE BELOW Normal [facility] Comment on above: Result Comment: 3.3 - 4.4 LOW RISK 4.4 - 7.1 AVERAGE RISK 7.1 - 11.0 MODERATE RISK >11.0 HIGH RISK Performed By: #### C BC #### [facility] [address] [address] [address] Belkis Ascencio Cholesterol [Mass/Vol] 167 mg/dL Normal <=200 [facility] Comment on above: Performed By: #### C BC #### [facility] [address] [address] [address] Belkis Ascencio Cholesterol in HDL [Mass/Vol] 46 mg/dL Normal 40-60 [facility] Comment on above: Performed By: #### C BC #### [facility] [address] [address] [address] Belkis Ascencio Cholesterol in LDL [Mass/Vol] 107.8 mg/dL Normal [facility] Comment on above: Performed By: #### C BC #### [facility] [address] [address] [address] Belkis Ascencio Cholesterol.total/Eli sterol in HDL [Mass ratio] 3.6 {ratio} Normal [facility] Comment on above: Performed By: #### C BC #### [facility] [address] [place] [address] Dr. Belkis Ascencio HDL NORMAL > or = 60 mg/dl - LOW CARDIOVASCULAR RISK <40 mg/dl - HIGH CARDIOVASCULAR RISK Normal [facility] Comment on above: Performed By: #### C BC #### [facility] [address] [address] [address] Belkis Ascencio LDL CALC NORMAL SEE BELOW Normal [facility] Comment on above: Result Comment: <100 mg/dl OPTIMAL 100 - 129 mg/dl NEAR OR ABOVE OPTIMAL 130 - 159 mg/dl BORDERLINE HIGH 160 - 189 mg/dl HIGH >190 mg/dl VERY HIGH Performed By: #### C BC #### [facility] [address] [place] [address] [address] Belkis Ascencio Triglyceride [Mass/Vol] 66 mg/dL Normal <=[address] [facility] Comment on above: Performed By: #### C BC #### [facility] [address] [place] [address] [address] Belkis Ascencio VLDL CALC 13.2 mg/dL Normal [facility] Comment on above: Performed By: #### C BC #### [facility] [address] [address] [address] Belkis Ascencio GLYCOHEMOGLOBIN A1Con 2022 ADA RECOMMENDATION SEE BELOW Normal [facility] Comment on above: Result Comment: ADA RECOMMENDED LIMIT 4.0 - 6.0 ADA THERAPEUTIC TARGET < 7.0 ACTION SUGGESTED > 7.0 Performed By: #### C BC #### [facility] [address] [place] [address] Dr. Belkis Ascencio Glucose [Mass/Vol] 100 mg/dL Normal [facility] Comment on above: Performed By: #### C BC #### [facility] [address] [place] [address] Dr. Belkis Ascencio HbA1c (Bld) [Mass fraction] 5.1 % Normal 4.5-6.2 [facility] Comment on above: Performed By: #### C BC #### [facility] [address] [place] [address] Dr. Belkis Ascencio BUNon 11-05-2022 Urea nitrogen [Mass/Vol] 13.0 mg/dL Normal 7.0-18.0 [facility] Comment on above: Performed By: #### C BC #### [facility] [address] [place] [address] Dr. Belkis Ascencio CHEM 7 PANEL, MANUAL ENTERon 11-05-2022 Blood Urea Nitrogen (BUN), MANUAL ENTER [address] [facility] BUN/CREA RATIO, MANUAL ENTER [address] [facility] CALCIUM (CA), MANUAL ENTER [facility] Carbon Diox(CO2), MANUAL ENTER 30.[address] [facility] Chloride (CL), MANUAL ENTER 101 mmol/L [facility] CREATININE, SERUM, MANUAL ENTER 0.74 mg/dL [facility]: eGFR>60 GLUCOSE, MANUAL ENTER [facility] MAGNESIUM (MG), MANUAL ENTER [facility] Phosphate (PO4), Manual Enter [facility] POTASSIUM (K+), MANUAL ENTER 3.5 [facility] SODIUM (NA), MANUAL ENTER 135 [facility] CREATININEon 11-05-2022 Creatinine [Mass/Vol] 0.74 mg/dL Normal 0.55-1.02 [facility] Comment on above: Performed By: #### C BC #### [facility] [address] [address] [address] Belkis Ascencio EGFR-AF ANGUILLAN >60 Normal >=[address] [facility] Comment on above: Performed By: #### C BC #### [facility] [address] [place] [address] Dr. Belkis Ascencio EGFR-NON AF ANGUILLAN >60 Normal >=60 [facility] Comment on above: Performed By: #### C BC #### [facility] [address] [address] [address] Belkis Ascencio ELECTROLYTESon 11-05-2022 Anion gap [Moles/Vol] 6.7 mmol/L Normal [facility] Comment on above: Performed By: #### C BC #### [facility] [address] [place] [address] Dr. Belkis Ascencio Chloride [Moles/Vol] 101 mmol/L Normal 98-107 [facility] Comment on above: Performed By: #### C BC #### [facility] [address] [place] [address] Dr. Belkis Ascencio CO2 [Moles/Vol] 30.8 mmol/L Normal 21.0-32.0 [facility] Comment on above: Performed By: #### C BC #### [facility] [address] [place] [address] Dr. Belkis Ascencio Potassium [Moles/Vol] 3.5 mmol/L Normal 3.5-5.1 [facility] Comment on above: Performed By: #### C BC #### [facility] [address] [place] [address] Dr. Belkis Ascencio Sodium [Moles/Vol] 135 mmol/L Critically low 136-145 [facility] Comment on above: Performed By: #### C BC #### [facility] [address] [place] [address] Dr. Belkis Ascencio MG MAMM SCREEN 3D LORNA CADon 09-15-2022 MG MAMM SCREEN 3D LORNA CAD Patient: MARIANNA RAMIREZ Exam Date: 09/15/2022 : 1975 Gender:F Ordering : DR. ILANA KUMARI D.O. Admission #: [id number] Family : Order #: [id number] CLICK HERE TO VIEW EXAM RADIOLOGY REPORT [...] lung cancer at age 40. LOCATION: [facility] BREAST COMPOSITION: Heterogeneously dense,which may [...] Conklin M.D. on 09/15/2022 at 14:50 Normal [facility] BUNon 08-14-2022 Urea nitrogen [Mass/Vol] 15.0 mg/dL Normal 7.0-18.0 [facility] Comment on above: Performed By: #### C BRITTANI, TSH, ELEC, BUN #### [facility] [address] [address] [address] Belkis Ascencio CBC AUTO DIFFon 08-14-2022 BASO # 0.0 103/ul Normal 0.0-0.1 [facility] Comment on above: Performed By: #### C BC #### [facility] [address] [address] [address] Belkis Ascencio Basophils/100 WBC (Bld) 0.3 % Normal 0.2-2.0 [facility] Comment on above: Performed By: #### C BC #### [facility] [address] [place] [address] Dr. Belkis Ascencio EO # 0.1 103/ul Normal 0.0-0.7 [facility] Comment on above: Performed By: #### C BC #### [facility] [address] [place] [address] Dr. Belkis Ascencio Eosinophils/100 WBC (Bld) 0.7 % Critically low 0.9-7.0 [facility] Comment on above: Performed By: #### C BC #### [facility] [address] [place] [address] Dr. Belkis Ascencio Erythrocyte distribution width (RBC) [Ratio] 11.4 % Normal 11.0-15.0 [facility] Comment on above: Performed By: #### C BC #### [facility] [address] [place] [address] Dr. Belkis Ascencio Hematocrit (Bld) [Volume fraction] 38.4 % Normal 36.0-48.0 [facility] Comment on above: Performed By: #### C BC #### [facility] [address] [place] [address] Dr. Belkis Ascencio Hemoglobin (Bld) [Mass/Vol] 13.3 g/dL Normal 12.0-16.0 [facility] Comment on above: Performed By: #### C BC #### [facility] [address] [place] [address] Dr. Belkis Ascencio IG # 0.02 10e3/ul Normal 0.00-0.03 [facility] Comment on above: Performed By: #### C BC #### [facility] [address] [place] [address] Dr. Belkis Ascencio IG % 0.2 % Normal 0.0-0.5 [facility] Comment on above: Performed By: #### C BC #### [facility] [address] [place] [address] Dr. Belkis Ascencio LYMPH # 2.1 103/ul Normal 1.2-3.8 [facility] Comment on above: Performed By: #### C BC #### [facility] [address] [place] [address] Dr. Belkis Ascencio Lymphocytes/100 WBC (Bld) 23.1 % Normal 20.5-60.0 [facility] Comment on above: Performed By: #### C BC #### [facility] [address] [place] [address] Dr. Belkis Ascencio MANUAL DIFF REQ NO Normal [facility] Comment on above: Performed By: #### C BC #### [facility] [address] [place] [address] Dr. Belkis Ascencio MCH (RBC) [Entitic mass] 30.9 pg Normal 26.7-34.0 [facility] Comment on above: Performed By: #### C BC #### [facility] [address] [place] [address] Dr. Belkis Ascencio MCHC (RBC) [Mass/Vol] 34.6 g/dL Normal 29.9-35.2 [facility] Comment on above: Performed By: #### C BC #### [facility] [address] [place] [address] Dr. Belkis Ascencio MCV (RBC) [Entitic vol] 89.1 fL Normal 81.0-99.0 [facility] Comment on above: Performed By: #### C BC #### [facility] [address] [place] [address] Dr. Belkis Ascencio MONO # 0.6 103/ul Normal 0.3-0.8 [facility] Comment on above: Performed By: #### C BC #### [facility] [address] [place] [address] Dr. Belkis Ascencio Monocytes/100 WBC (Bld) 6.8 % Normal 1.7-12.0 [facility] Comment on above: Performed By: #### C BC #### [facility] [address] [place] [address] Dr. Belkis Ascencio NEUT # 6.1 103/ul Normal 1.4-6.5 [facility] Comment on above: Performed By: #### C BC #### [facility] [address] [place] [address] Dr. Belkis Ascencio Neutrophils/100 WBC (Bld) 68.9 % Normal 43.0-75.0 [facility] Comment on above: Performed By: #### C BC #### [facility] [address] [place] [address] Dr. Belkis Ascencio Platelet mean volume (Bld) [Entitic vol] 9.4 fL Critically low 9.5-13.5 [facility] Comment on above: Performed By: #### C BC #### [facility] [address] [place] [address] Dr. Belkis Ascencio PLT 305 103/ul Normal 150-450 [facility] Comment on above: Performed By: #### C BC #### [facility] [address] [place] [address] Dr. Belkis Ascencio RBC 4.31 106/ul Normal 4.20-5.40 [facility] Comment on above: Performed By: #### C BC #### [facility] [address] [place] [address] Dr. Belksi Ascencio WBC 8.9 103/ul Normal 4.0-11.0 [facility] Comment on above: Performed By: #### C BC #### [facility] [address] [place] [address] Dr. Belkis Ascencio CREATININEon 08-14-2022 Creatinine [Mass/Vol] 0.73 mg/dL Normal 0.55-1.02 [facility] Comment on above: Performed By: #### C BRITTANI, TSH, ELEC, BUN #### [facility] [address] [place] [address] Dr. Belkis Ascencio EGFR-AF ANGUILLAN >60 Normal >=[address] [facility] Comment on above: Performed By: #### C BRITTANI, TSH, ELEC, BUN #### [facility] [address] [place] [address] Dr. Belkis Ascencio EGFR-NON AF ANGUILLAN >60 Normal >=60 [facility] Comment on above: Performed By: #### C BRITTANI, TSH, ELEC, BUN #### [facility] [address] [address] [address] Belkis Ascencio ELECTROLYTESon 08-14-2022 Anion gap [Moles/Vol] 10.4 mmol/L Normal [facility] Comment on above: Performed By: #### C BRITTANI, TSH, ELEC, BUN #### [facility] [address] [place] [address] Dr. Belkis Ascencio Chloride [Moles/Vol] 100 mmol/L Normal 98-107 [facility] Comment on above: Performed By: #### C BRITTANI, TSH, ELEC, BUN #### [facility] [address] [address] [address] Belkis Ascencio CO2 [Moles/Vol] 29.8 mmol/L Normal 21.0-32.0 [facility] Comment on above: Performed By: #### C BRITTANI, TSH, ELEC, BUN #### [facility] [address] [place] [address] Dr. Belkis Ascencio Potassium [Moles/Vol] 4.2 mmol/L Normal 3.5-5.1 [facility] Comment on above: Performed By: #### C BRITTANI, TSH, ELEC, BUN #### [facility] [address] [address] [address] Belkis Ascencio Sodium [Moles/Vol] 136 mmol/L Normal 136-145 [facility] Comment on above: Performed By: #### C BRITTANI, TSH, ELEC, BUN #### [facility] [address] [place] [address] Dr. Belkis Ascencio GLYCOHEMOGLOBIN A1Con 2021 ADA RECOMMENDATION SEE BELOW Normal [facility] Comment on above: Result Comment: ADA RECOMMENDED LIMIT 4.0 - 6.0 ADA THERAPEUTIC TARGET < 7.0 ACTION SUGGESTED > 7.0 Performed By: #### A 1C #### [facility] [address] [place] [address] Dr. Belkis Ascencio Glucose [Mass/Vol] 105 mg/dL Normal [facility] Comment on above: Performed By: #### A 1C #### [facility] [address] [place] [address] Dr. Belkis Ascencio HbA1c (Bld) [Mass fraction] 5.3 % Normal 4.5-6.2 [facility] Comment on above: Performed By: #### A 1C #### [facility] [address] [place], [place] [address] Dr. Belkis Ascencio TSHon 08-14-2022 TSH 1.011 uIU/mL Normal 0.358-3.740 [facility] Comment on above: Performed By: #### C BRITTANI, TSH, ELEC, BUN #### [facility] [address] [place], [place] [address] Dr. Belkis Ascencio Urinalysis - DIPSTICKon 03-06 Appearance (U) clougy [employer] Other Bilirubin Ql (U) Negative [employer] Other Color (U) yellow [employer] Other Glucose Ql (U) Negative [employer] Other Hemoglobin Ql (U) moderate [email or web address] Other Ketones Ql (U) Negative [employer] Other Leukocyte esterase Test strip Ql (U) Negative [employer] Other Nitrite Ql (U) Negative [employer] Other pH (U) 6.0 [pH] [employer] Other Protein Ql (U) Negative [employer] Other Specific gravity (U) [Rel density] 1.025 [employer] Other Urobilinogen (U) [Mass/Vol] wnl [employer] Other Urinalysis - DIPSTICK [employer] Other Urine Cultureon 03-22-2022 Bacteria identified Cx Nom (U) [employer] Other Cardiac echo study Procedure Ordered By: Vickey Mahan on 03-19-2022 Ao peak wilner 1.48 m/s [facility] Work Phone: Ascending [facility] 2.30 [facility] Work [facility]: AV LVOT peak gradient 5 mmHg [facility] Work Phone: AV peak gradient 9 mmHG [facility] Work Phone: AV Velocity Ratio 0.76 [facility] Work Phone: ROYAL (continuity Vmax) 2.14 cm2 [facility] Work Phone: ROYAL index (continuity Vmax) 1.28 m/s [facility] Work Phone: Avg e' pk wilner 0.12 m/s [facility] Work Phone: Avg E/e' ratio 6.38 [facility] Work Phone: Body surface area Derived from formula 1.67 m2 [facility] Work Phone: DI (Vmax) 0.76 [facility] Work Phone: E wave decelartion time 246.00 msec [facility] Work Phone: e' lateral pk wilner 0.1360 m/s [facility] Work Phone: e' lateral pk wilner 0.14 m/s [facility] Work Phone: e' septal pk wilner 0.1110 m/s [facility] Work Phone: e' septal pk wilner 0.11 m/s [facility] Work Phone: E/A ratio 1.39 [facility] Work Phone: E/e' lateral ratio 5.74 [facility] Work Phone: E/e' septal ratio 7.03 [facility] Work Phone: FS 30 % 28 - 44 % [facility] Work Phone: IVC ostium 1.11 cm [facility] Work Phone: IVS 0.69 cm [facility] Work Phone: LA AREA 2CH 14.80 cm2 [facility] Work Phone: LA ESV SP 2CH (MOD) [address] [facility] Work Phone: LV mass 88.15 [facility] Work [facility]: LV Mass Index 52.8 g/m2 [facility] Work Phone: LV RWT 0.24 [facility] Work Phone: LVIDD 4.66 cm [facility] Work Phone: LVIDS 3.28 cm [facility] Work Phone: LVOT area 2.83 cm2 [facility] Work Phone: LVOT diameter 1.90 cm [facility] Work Phone: LVOT peak wilner 1.12 m/s [facility] Work Phone: LVOT peak VTI 20.60 cm [facility] Work Phone: LVOT stroke volume 58 cm3 [facility] Work Phone: LVOT stroke volume index 34.96 ml/m2 [facility] Work Phone: MV pk A wilner 0.56 m/s [facility] Work Phone: MV pk E wilner 0.78 m/s [facility] Work Phone: MV stenosis pressure 1/2 time 72.00 ms [facility] Work Phone: MV valve area p 1/2 method 3.06 cm2 [facility] Work Phone: PW 0.56 cm [facility] Work Phone: Right ventricle end diastolic volume index 50.90 mL/m2 [facility] Work Phone: Right ventricle end systolic volume index 20.36 [facility] Work Phone: RV basal diam 2.97 cm [facility] Work Phone: RV EDV 85 mL [facility] Work Phone: RV EF 60 % [facility] Work Phone: RV ESV 34 mL [facility] Work Phone: RV long diam 7.97 cm [facility] Work Phone: RV mid diam 2.09 cm [facility] Work Phone: RV S' 13.80 cm/s [facility] Work Phone: Sinus 2.36 cm [facility] Work Phone: STJ 2.46 cm [facility] Work Phone: Stroke Volume 58 cm/mL [facility] Work Phone: Stroke volume index [address] [facility] Work Phone: TAPSE 2.46 cm [facility] Work Phone: [facility] Work Phone: Cardiac echo study Procedure [...] independent workstation was performed. Imaging system used: [employer]. [facility] Radiology Study observation (narrative) [facility] Urinalysis - AUTOMATEDon Appearance (U) clear [employer] Other Bilirubin Ql (U) Negative [employer] Other Color (U) yellow [employer] Other Glucose Ql (U) Negative [employer] Other Hemoglobin Ql (U) [employer] Other Ketones Ql (U) Negative [employer] Other Leukocyte esterase Test strip Ql (U) [employer] Other Nitrite Ql (U) Negative [employer] Other pH (U) 7.0 [pH] [employer] Other Protein Ql (U) Negative [employer] Other Specific gravity (U) [Rel density] 1.010 [employer] Other Urobilinogen (U) [Mass/Vol] 0.2 mg/dL [employer] Other Urinalysis - AUTOMATED No rt [employer] Other Urine Cultureon 03-12-2022 Urine Culture >100,000 [employer] Other Urine Culture <16 Susceptible [employer] Other Urine Culture >16 Resistant [employer] Other Urine Culture <4 Susceptible [employer] Other Urine Culture 4 Susceptible [employer] Other Urine Culture <2 Susceptible [employer] Other Urine Culture <1 Susceptible [employer] Other Urine Culture <0.5 Susceptible [employer] Other Urine Culture <32 Susceptible [employer] Other Urine Culture >8 Resistant [employer] Other Urine Culture <2/38 [employer] Other CBC AUTO DIFFon 02-20-2022 BASO # 0.0 103/ul Normal 0.0-0.1 [facility] Comment on above: Performed By: #### C BC #### [facility] [address] [address] [address] Belkis Ascencio Basophils/100 WBC (Bld) 0.4 % Normal 0.2-2.0 [facility] Comment on above: Performed By: #### C BC #### [facility] [address] [address] [address] Belkis Ascencio EO # 0.1 103/ul Normal 0.0-0.7 [facility] Comment on above: Performed By: #### C BC #### [facility] [address] [place] [address] Dr. Belkis Ascencio Eosinophils/100 WBC (Bld) 1.0 % Normal 0.9-7.0 [facility] Comment on above: Performed By: #### C BC #### [facility] [address] [place] [address] Dr. Belkis Ascencio Erythrocyte distribution width (RBC) [Ratio] 11.5 % Normal 11.0-15.0 [facility] Comment on above: Performed By: #### C BC #### [facility] [address] [place] [address] Dr. Belkis Ascencio Hematocrit (Bld) [Volume fraction] 38.8 % Normal 36.0-48.0 [facility] Comment on above: Performed By: #### C BC #### [facility] [address] [place] [address] Dr. Belkis Ascencio Hemoglobin (Bld) [Mass/Vol] 13.2 g/dL Normal 12.0-16.0 [facility] Comment on above: Performed By: #### C BC #### [facility] [address] [place] [address] Dr. Belkis Ascencio IG # 0.01 10e3/ul Normal 0.00-0.03 [facility] Comment on above: Performed By: #### C BC #### [facility] [address] [place] [address] Dr. Belkis Ascencio IG % 0.1 % Normal 0.0-0.5 [facility] Comment on above: Performed By: #### C BC #### [facility] [address] [place] [address] Dr. Belkis Ascencio LYMPH # 1.6 103/ul Normal 1.2-3.8 [facility] Comment on above: Performed By: #### C BC #### [facility] [address] [place] [address] Dr. Belkis Ascencio Lymphocytes/100 WBC (Bld) 22.1 % Normal 20.5-60.0 [facility] Comment on above: Performed By: #### C BC #### [facility] [address] [place] [address] Dr. Belkis Ascencio MANUAL DIFF REQ NO Normal [facility] Comment on above: Performed By: #### C BC #### [facility] [address] [place] [address] Dr. Belkis Ascencio MCH (RBC) [Entitic mass] 31.3 pg Normal 26.7-34.0 [facility] Comment on above: Performed By: #### C BC #### [facility] [address] [place] [address] Dr. Belkis Ascencio MCHC (RBC) [Mass/Vol] 34.0 g/dL Normal 29.9-35.2 [facility] Comment on above: Performed By: #### C BC #### [facility] [address] [place] [address] Dr. Belkis Ascencio MCV (RBC) [Entitic vol] 91.9 fL Normal 81.0-99.0 [facility] Comment on above: Performed By: #### C BC #### [facility] [address] [place] [address] Dr. Belkis Ascencio MONO # 0.6 103/ul Normal 0.3-0.8 [facility] Comment on above: Performed By: #### C BC #### [facility] [address] [place] [address] Dr. Belkis Ascencio Monocytes/100 WBC (Bld) 8.7 % Normal 1.7-12.0 [facility] Comment on above: Performed By: #### C BC #### [facility] [address] [place] [address] Dr. Belkis Ascencio NEUT # 4.8 103/ul Normal 1.4-6.5 [facility] Comment on above: Performed By: #### C BC #### [facility] [address] [place] [address] Dr. Belkis Ascencio Neutrophils/100 WBC (Bld) 67.7 % Normal 43.0-75.0 [facility] Comment on above: Performed By: #### C BC #### [facility] [address] [place] [address] Dr. Belkis Ascencio Platelet mean volume (Bld) [Entitic vol] 9.4 fL Critically low 9.5-13.5 [facility] Comment on above: Performed By: #### C BC #### [facility] [address] [place] [address] Dr. Belkis Ascencio PLT 270 103/ul Normal 150-450 [facility] Comment on above: Performed By: #### C BC #### [facility] [address] [address] [address] Belkis Ascencio RBC 4.22 106/ul Normal 4.20-5.40 [facility] Comment on above: Performed By: #### C BC #### [facility] [address] [place] [address] Dr. Belkis Ascencio WBC 7.1 103/ul Normal 4.0-11.0 [facility] Comment on above: Performed By: #### C BC #### [facility] [address] [place] [address] Dr. Belkis Ascencio PROF CHEM 8 (BAS METB)on Anion gap [Moles/Vol] 9.0 mmol/L Normal [facility] Comment on above: Performed By: #### C BC #### [facility] [address] [place] [address] Dr. Belkis Ascencio Calcium [Mass/Vol] 8.8 mg/dL Normal 8.5-10.1 [facility] Comment on above: Performed By: #### C BC #### [facility] [address] [place] [address] Dr. Belkis Ascencio Chloride [Moles/Vol] 102 mmol/L Normal 98-107 [facility] Comment on above: Performed By: #### C BC #### [facility] [address] [place] [address] Dr. Belkis Ascencio CO2 [Moles/Vol] 29.2 mmol/L Normal 21.0-32.0 [facility] Comment on above: Performed By: #### C BC #### [facility] [address] [address] [address] Belkis Ascencio Creatinine [Mass/Vol] 0.76 mg/dL Normal 0.55-1.02 [facility] Comment on above: Performed By: #### C BC #### [facility] [address] [address] [address] Belkis Ascencio EGFR-AF ANGUILLAN >=60 Normal >=60 [facility] Comment on above: Performed By: #### C BC #### [facility] [address] [address] [address] Belkis Ascencio EGFR-NON AF ANGUILLAN >=60 Normal >=60 [facility] Comment on above: Performed By: #### C BC #### [facility] [address] [place] [address] Dr. Belkis Ascencio Glucose [Mass/Vol] 109 mg/dL Critically high 74-[address] [facility] Comment on above: Performed By: #### C BC #### [facility] [address] [place] [address] Dr. Belkis Ascencio Potassium [Moles/Vol] 4.4 mmol/L Normal 3.5-5.1 [facility] Comment on above: Performed By: #### C BC #### [facility] [address] [place] [address] Dr. Belkis Ascencio Sodium [Moles/Vol] 136 mmol/L Normal 136-145 [facility] Comment on above: Performed By: #### C BC #### [facility] [address] [place] [address] Dr. Belkis Ascencio Urea nitrogen [Mass/Vol] 12.0 mg/dL Normal 7.0-18.0 [facility] Comment on above: Performed By: #### C BC #### [facility] [address] [place] [address] Dr. Belkis Ascencio Urea nitrogen/Creatinine [Mass ratio] 15.8 mg/mg Normal [facility] Comment on above: Performed By: #### C BC #### [facility] [address] [place] [address] Dr. Belkis Ascencio Vital Signs Date Time Vital Sign Value Performing Clinician Facility 06-22-2024 13:22-0400 Diastolic blood pressure 51 mm[Hg] Trip Sosa MD Work Phone: [facility] 06-22-2024 13:22-0400 Heart rate 77 /min Trip Sosa MD Work Phone: [facility] 06-22-2024 13:22-0400 Systolic blood pressure 99 mm[Hg] Trip Sosa MD Work Phone: [facility] 06-22-2024 13:21-0400 Body height 157.5 cm Trip Sosa MD Work Phone: [facility] 06-22-2024 13:21-0400 Body mass index (BMI) [Ratio] 27.78 kg/m2 Trip Sosa MD Work Phone: [facility] 06-22-2024 13:21-0400 Body weight 68.9 kg Trip Sosa MD Work Phone: [facility] 06-22-2024 13:21-0400 Respiratory rate 18 /min Trip Sosa MD Work Phone: [facility] 06-22-2024 13:21-0400 SaO2% (BldA) [Mass fraction] 97 % Trip Sosa MD Work Phone: [facility] 06-22-2024 12:40-0400 Diastolic blood pressure 64 mm[Hg] Justyna Heller APRN-[employer] Work Phone: [facility] 06-22-2024 12:40-0400 Heart rate 78 /min Justyna Heller APRN[employer] Work Phone: [facility] 06-22-2024 12:40-0400 Systolic blood pressure 129 mm[Hg] Justyna Heller APRN-[employer] SCARFER TENDER Work Phone: [facility] 06-22-2024 11:25-0400 Body height 157.5 cm Justyna Heller APRN-[employer] T[employer]ER Work Phone: [facility] 06-22-2024 11:25-0400 Body mass index (BMI) [Ratio] 26.7 kg/m2 Justyna Heller APRN-[employer] TENDER Work Phone: [facility] 06-22-2024 11:25-0400 Body weight 66.22 kg Justyna Heller APRN-[employer] T[employer]ER Work Phone: [facility] 06-08-2024 14:56-0400 Body height 157.5 cm Ever Biedenbach DO Work Phone: [facility] 06-08-2024 14:56-0400 Body mass index (BMI) [Ratio] 28.17 kg/m2 Ever Biedenbach DO Work Phone: [facility] 06-08-2024 14:56-0400 Body weight 69.85 kg Ever Biedenbach DO Work Phone: [facility] 06-01-2024 10:58-0400 Body height 157.5 cm Ever Biedenbach DO Work Phone: [facility] 06-01-2024 10:58-0400 Body mass index (BMI) [Ratio] 28.17 kg/m2 Ever Biedenbach DO Work Phone: [facility] 06-01-2024 10:58-0400 Body weight 69.85 kg Ever Biedenbach DO Work Phone: [facility] 05-24-2024 14:30-0400 Diastolic blood pressure 77 mm[Hg] MD Cj Lazo Work Phone: [facility] 05-24-2024 14:30-0400 Heart rate 98 /min MD Cj Lazo Work Phone: [facility] 05-24-2024 14:30-0400 Respiratory rate 16 /min MD Cj Lazo Work Phone: [facility] 05-24-2024 14:30-0400 SaO2% (BldA) [Mass fraction] 97 % MD Cj Lazo Work Phone: [facility] 05-24-2024 14:30-0400 Systolic blood pressure 124 mm[Hg] MD Cj Lazo Work Phone: [facility] 05-24-2024 12:45-0400 Inhaled oxygen flow rate 2 L/min MD Cj Lazo Work Phone: [facility] 05-24-2024 11:53-0400 Body temperature 98.2 [degF] MD Cj Lazo Work Phone: [facility] 05-24-2024 08:34-0400 Body height 158.12 cm MD Cj Lazo Work Phone: [facility] 05-24-2024 08:34-0400 Body weight 68 kg MD Cj Lazo Work Phone: [facility] 05-05-2024 09:04-0400 Body height 157.5 cm Ever Woodward DO Work Phone: [facility] 05-05-2024 09:04-0400 Body mass index (BMI) [Ratio] 28.17 kg/m2 Ever Re-APPparmjit DO Work Phone: [facility] 05-05-2024 09:04-0400 Body weight 69.85 kg Ever Woodward DO Work Phone: [facility] 04-13-2024 09:23-0400 Body height 157.48 cm [facility] 04-13-2024 09:23-0400 Body mass index (BMI) [Ratio] 27.2 kg/m2 [facility] 04-13-2024 09:23-0400 Body weight 67.58 kg [facility] 04-13-2024 09:23-0400 Diastolic blood pressure 72 mm[Hg] [facility] 04-13-2024 09:23-0400 Heart rate 89 /min [facility] 04-13-2024 09:23-0400 SaO2% (BldA) [Mass fraction] 99 % [facility] 04-13-2024 09:23-0400 Systolic blood pressure 110 mm[Hg] [facility] 12-20-2023 10:54-0400 Blood Pressure Location [place] [facility] 12-20-2023 10:54-0400 Diastolic blood pressure 60 mm[Hg] [place] [facility] 12-20-2023 10:54-0400 Heart rate 68 /min [place] [facility] 12-20-2023 10:54-0400 Respiratory rate 18 /min [place] [facility] 12-20-2023 10:54-0400 Systolic blood pressure 110 mm[Hg] [place] [facility] 12-10-2023 10:28-0400 Body height 157.48 cm [facility] 12-10-2023 10:28-0400 Body mass index (BMI) [Ratio] 27.6 kg/m2 [facility] 12-10-2023 10:28-0400 Body weight 68.49 kg [facility] 12-10-2023 10:28-0400 Diastolic blood pressure 78 mm[Hg] [facility] 12-10-2023 10:28-0400 Heart rate 80 /min [facility] 12-10-2023 10:28-0400 Systolic blood pressure 115 mm[Hg] [facility] 12-02-2023 14:23-0400 Diastolic blood pressure 67 mm[Hg] Trip Sosa MD Work Phone: [facility] 12-02-2023 14:23-0400 Heart rate 73 /min Trip Sosa MD Work Phone: [facility] 12-02-2023 14:23-0400 Systolic blood pressure 108 mm[Hg] Trip Sosa MD Work Phone: [facility] 12-02-2023 14:21-0400 Body height 157.5 cm Trip Sosa MD Work Phone: [facility] 12-02-2023 14:21-0400 Respiratory rate 18 /min Trip Sosa MD Work Phone: [facility] 12-02-2023 14:21-0400 SaO2% (BldA) [Mass fraction] 97 % Trip Sosa MD Work Phone: [facility] 05-04-2023 12:18-0400 Blood Pressure Location Jessica Lopez [facility] 05-04-2023 12:18-0400 Body temperature 97.52 [degF] Jessica Lopez [facility] 05-04-2023 12:18-0400 Diastolic blood pressure 75 mm[Hg] Jessica Izaguirremetz [facility] 05-04-2023 12:18-0400 Heart rate 79 /min Jessica Izaguirremetz [facility] 05-04-2023 12:18-0400 Systolic blood pressure 110 mm[Hg] Jessica Izaguirremetz [facility] 04-22-2023 15:37-0400 Diastolic blood pressure 68 mm[Hg] Trip Sosa MD Work Phone: [facility] 04-22-2023 15:37-0400 Heart rate 86 /min Trip Sosa MD Work Phone: [facility] 08-17-2023 15:37-0400 Systolic blood pressure 115 mm[Hg] Trip Sosa MD Work Phone: [facility] 04-22-2023 15:36-0400 Body height 157.5 cm Trip Sosa MD Work Phone: [facility] 04-22-2023 15:36-0400 Body mass index (BMI) [Ratio] 25.02 kg/m2 Trip Sosa MD Work Phone: [facility] 04-22-2023 15:36-0400 Body weight 62.05 kg Trip Sosa MD Work Phone: [facility] 04-22-2023 15:36-0400 Respiratory rate 20 /min Trip Sosa MD Work Phone: [facility] 04-22-2023 15:36-0400 SaO2% (BldA) [Mass fraction] 98 % Trip Sosa MD Work Phone: [facility] 01-13-2023 10:12-0400 Blood Pressure Location Jessica Lopez [facility] 01-13-2023 10:12-0400 Body temperature 97.16 [degF] Jessica Lopez [facility] 01-13-2023 10:12-0400 Diastolic blood pressure 74 mm[Hg] Jessica Lopez [facility] 01-13-2023 10:12-0400 Heart rate 71 /min Jessica Lopez [facility] 01-13-2023 10:12-0400 Systolic blood pressure 107 mm[Hg] Jessica Lopez [facility] 12-28-2022 11:05-0400 Blood Pressure Location Petty AMBROSE [facility] 12-28-2022 11:05-0400 Diastolic blood pressure 50 mm[Hg] Dove SALAM [facility] 12-28-2022 11:05-0400 Heart rate 75 /min Dove SALAM [facility] 12-28-2022 11:05-0400 Mean blood pressure 66 mm[Hg] Dove SALAM [facility] 12-28-2022 11:05-0400 Respiratory rate 18 /min Dove SALAM [facility] 12-28-2022 11:05-0400 SaO2% (BldA) [Mass fraction] 99 % Dove SALAM [facility] 12-28-2022 11:05-0400 Systolic blood pressure 98 mm[Hg] Dove SALAM [facility] 12-28-2022 10:55-0400 Blood Pressure Location Dove SALAM [facility] 12-28-2022 10:55-0400 Diastolic blood pressure 40 mm[Hg] Dove SALAM [facility] 12-28-2022 10:55-0400 Heart rate 82 /min Dove SALAM [facility] 12-28-2022 10:55-0400 Mean blood pressure 59 mm[Hg] Dove SALAM [facility] 12-28-2022 10:55-0400 Respiratory rate 15 /min Dove SALAM [facility] 12-28-2022 10:55-0400 SaO2% (BldA) [Mass fraction] 98 % Dove SALAM [facility] 12-28-2022 10:55-0400 Systolic blood pressure 98 mm[Hg] Dove SALAM [facility] 12-28-2022 10:50-0400 Blood Pressure Location Dove SALAM [facility] 12-28-2022 10:50-0400 Diastolic blood pressure 45 mm[Hg] Dove SALAM [facility] 12-28-2022 10:50-0400 Heart rate 70 /min Dove SALAM [facility] 12-28-2022 10:50-0400 Mean blood pressure 58 mm[Hg] Dove SALAM [facility] 12-28-2022 10:50-0400 Respiratory rate 20 /min Dove SALAM [facility] 12-28-2022 10:50-0400 SaO2% (BldA) [Mass fraction] 96 % Dove SALAM [facility] 12-28-2022 10:50-0400 Systolic blood pressure 84 mm[Hg] Dove SALAM [facility] 12-28-2022 10:41-0400 Body temperature 97.52 [degF] Dove SALAM [facility] 12-28-2022 10:39-0400 Respiratory rate 18 /min Dove SALAM [facility] 12-28-2022 10:35-0400 Respiratory rate 16 /min Dove SALAM [facility] 12-28-2022 10:28-0400 Respiratory rate 18 /min Dove SALAM [facility] 12-28-2022 09:55-0400 Body temperature 96.98 [degF] Dove SALAM [facility] 12-21-2022 12:45-0400 Blood Pressure Location Jessica Lopez [facility] 12-21-2022 12:45-0400 Body temperature 96.98 [degF] Jessica Lopez [facility] 12-21-2022 12:45-0400 Diastolic blood pressure 77 mm[Hg] Jessica Lopez [facility] 12-21-2022 12:45-0400 Heart rate 66 /min Jessica Lopez [facility] 12-21-2022 12:45-0400 Systolic blood pressure 116 mm[Hg] Jessica Lopez [facility] 10-01-2022 14:42-0500 Diastolic blood pressure 66 mm[Hg] Trip Sosa MD Work Phone: [facility] 10-01-2022 14:42-0500 Heart rate 94 /min Trip Sosa MD Work Phone: [facility] 10-01-2022 14:42-0500 Systolic blood pressure 102 mm[Hg] Trip Sosa MD Work Phone: [facility] 10-01-2022 14:40-0500 Body height 157.5 cm Trip Sosa MD Work Phone: [facility] 10-01-2022 14:40-0500 Body mass index (BMI) [Ratio] 27.98 kg/m2 Trip Sosa MD Work Phone: [facility] 10-01-2022 14:40-0500 Body weight 69.4 kg Trip Sosa MD Work Phone: [facility] 01-26-2023 14:40-0500 Respiratory rate 16 /min Trip Sosa MD Work Phone: [facility] 10-01-2022 14:40-0500 SaO2% (BldA) [Mass fraction] 97 % Trip Sosa MD Work Phone: [facility] 03-22-2022 15:50-0400 Body height 157.48 cm Yas Garcia Other [facility] Other 03-22-2022 15:50-0400 Body mass index (BMI) [Ratio] 26.52 kg/m2 Yas Garcia Other [facility] Other 03-22-2022 15:50-0400 Body temperature 97.7 [degF] Yas Garcia Other [facility] Other 03-22-2022 15:50-0400 Body weight 65.77 kg Yas Garcia Other [facility] Other 03-22-2022 15:50-0400 SaO2% (BldA) [Mass fraction] 97 % Yas Garcia Other [facility] Other 03-19-2022 15:18-0400 Diastolic blood pressure 69 mm[Hg] Trip Sosa MD Work Phone: [facility] 03-19-2022 15:18-0400 Heart rate 76 /min Trip Sosa MD Work Phone: [facility] 03-19-2022 15:18-0400 Systolic blood pressure 120 mm[Hg] Trip Sosa MD Work Phone: [facility] 03-19-2022 15:17-0400 Body height 157.5 cm Trip Sosa MD Work Phone: [facility] 03-19-2022 15:17-0400 Body mass index (BMI) [Ratio] 27.25 kg/m2 Trip Sosa MD Work Phone: [facility] 03-19-2022 15:17-0400 Body weight 67.59 kg Trip Sosa MD Work Phone: [facility] 03-19-2022 15:17-0400 Respiratory rate 16 /min Trip Sosa MD Work Phone: [facility] 03-19-2022 15:17-0400 SaO2% (BldA) [Mass fraction] 97 % Trip Sosa MD Work Phone: [facility] 03-19-2022 14:02-0400 Body height 157.5 cm Justyna Heller CUSTOM 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 MAKER-[employer]ENDER Work Phone: [facility] 03-19-2022 14:02-0400 Body mass index (BMI) [Ratio] 26.65 kg/m2 Justyna Heller 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 [employer]ER Work Phone: [facility] 03-19-2022 14:02-0400 Body weight 66.1 kg Justyna Heller 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 [employer]ER Work Phone: [facility] 03-19-2022 14:02-0400 Diastolic blood pressure 67 mm[Hg] Justyna Heller 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 [employer]ER Work Phone: [facility] 03-19-2022 14:02-0400 Systolic blood pressure 136 mm[Hg] Justyna Heller [employer] 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 [employer]ER Work Phone: [facility] 03-12-2022 18:40-0400 Body height 157.48 cm Denise Alexander Other [facility] Other 03-12-2022 18:40-0400 Body mass index (BMI) [Ratio] 26.52 kg/m2 Denise Alexander Other [facility] Other 03-12-2022 18:40-0400 Body temperature 97.9 [degF] Denise Alexander Other [facility] Other 03-12-2022 18:40-0400 Body weight 65.77 kg Denise Alexander Other [facility] Other 03-12-2022 18:40-0400 Diastolic blood pressure 71 mm[Hg] Denise Alexander Other [facility] Other 03-12-2022 18:40-0400 Respiratory rate 16 /min Denise Alexander Other [facility] Other 03-12-2022 18:40-0400 SaO2% (BldA) [Mass fraction] 99 % Denise Alexander Other [facility] Other 03-12-2022 18:40-0400 Systolic blood pressure 124 mm[Hg] Denise Alexander Other [employer] Other Encounters Encounter Date Encounter Type Care Provider Facility Start: 06-27-2024 ambulatory VIKKI Damon ty:[facility] Start: 06-22-2024 End: 06-22-2024 Office outpatient visit 15 minutes Trip Sosa MD Work Phone: [facility] Comment on above: Cardiac microvascula r disease (Primary Dx) Start: 06-22-2024 ambulatory CJ LAZO Facility:[facility] Start: 06-22-2024 End: 06-22-2024 Subsequent hospital visit by physician Justyna Heller 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KER[employer]ER Work Phone: [facility] Comment on above: Arrived Start: 06-08-2024 End: 06-08-2024 Postop follow up visit related to original px Ever Fernández Biedenbach DO Work Phone: [facility] Comment on above: Follicular thyroid c arcinoma (CMS/HCC) (Primary Dx) Start: 06-08-2024 End: 06-08-2024 ambulatory EVER Fernández BIEDENDIDI Not Available Start: 06-08-2024 End: 06-08-2024 Bamboo flowsheet Ever S Biedenbach DO Work Phone: [facility] Start: 06-08-2024 End: 06-08-2024 Bamboo flowsheet Ever S Biedenbach DO Work Phone: [facility] Start: 06-01-2024 End: 06-01-2024 Bamboo flowsheet Ever S Biedenbach DO Work Phone: [facility] Start: 06-01-2024 End: 06-01-2024 Bamboo flowsheet Ever S Biedenbach DO Work Phone: [facility] Start: 06-01-2024 End: 06-01-2024 Postop follow up visit related to original px Ever Fernández Biedenbach DO Work Phone: [facility] Comment on above: Thyroid nodule (CMS/ HCC) (Primary Dx); Follicular thyroid carcinoma (CMS/HCC) Start: 06-01-2024 End: 06-01-2024 ambulatory EVER S BIEDENBACH Not Available Start: 05-24-2024 End: 05-24-2024 Patient encounter procedure Ever S Biedenbach DO Work Phone: [facility] Comment on above: Thyroid nodule (CMS/ HCC) (Primary Dx) Start: 05-24-2024 End: 05-24-2024 Admission to same day surgery center MD Cj Lazo Work Phone: [facility] [place] Start: 05-24-2024 End: 05-24-2024 ambulatory MD Cj Lazo Work Phone: [facility] Work Phone: Start: 05-17-2024 End: 05-17-2024 External Result Encounter Ever Woodward DO Work Phone: [facility] External Department Unsolicited Start: 05-17-2024 End: 05-17-2024 External Result Encounter Ever Woodward DO Work Phone: [facility] External Department Unsolicited Start: 05-17-2024 End: 05-17-2024 Patient encounter procedure MD Cj Lazo Work Phone: [facility] Work Phone: Start: 05-17-2024 End: 05-17-2024 ambulatory MD Cj Lazo Work Phone: [facility] Work Phone: Start: 05-05-2024 End: 05-05-2024 Bamboo flowsheet Ever Woodward DO Work Phone: [facility] Start: 05-05-2024 End: 05-05-2024 Bamboo flowsheet Ever Woodward DO Work Phone: [facility] Start: 05-05-2024 End: 05-05-2024 Office outpatient new 60 minutes Ever Woodward DO Work Phone: [facility] Comment on above: Thyroid nodule (CMS/ HCC) (Primary Dx); Globus sensation Start: 05-05-2024 End: 05-05-2024 ambulatory EVER WOODWARD Not Available Start: 04-19-[address] [facility] Work Phone: Start: 04-19-2024 Non-patient / Non-visit [facility] Work Phone: Start: 04-13-2024 End: 04-13-2024 ambulatory [facility] Work Phone: Start: 04-13-2024 End: 04-13-2024 Patient encounter procedure [facility] Work Phone: Start: 12-20-2023 End: 12-21-2023 ambulatory Viral Smith Facility:[facility] Start: 12-20-2023 End: 12-20-2023 Patient encounter procedure Viral Shawi [facility] Start: 12-10-2023 End: 12-10-2023 ambulatory [facility] Work Phone: Start: 12-10-2023 End: 12-10-2023 Patient encounter procedure [facility] Work Phone: Start: 12-02-2023 End: 12-02-2023 Office outpatient visit 15 minutes Trip Sosa MD Work Phone: [facility] Comment on above: Cardiac microvascula r disease (Primary Dx) Start: 12-02-2023 ambulatory CJ LAZO Facility:[facility] Start: 11-04-2023 End: 11-05-2023 ambulatory Jessica Lopez Facility:[facility] Start: 11-04-2023 End: 11-04-2023 Patient encounter procedure Jessica Lopez [facility] Start: 10-29-2023 Telephone encounter Alicia baumann MD Work Phone: [facility] Comment on above: Provider Question Start: 10-25-2023 Telephone encounter Alicia baumann MD Work Phone: [facility] Comment on above: Symptoms Vascular malformatio n (Primary Dx); Congenital vascular anomaly Start: 10-07-2023 End: 10-07-2023 ambulatory ILANA KUMARI Not Available Start: 05-04-2023 End: 05-05-2023 ambulatory Jessica Loepz Facility:[facility] Start: 05-04-2023 End: 05-04-2023 Patient encounter procedure Jessica Lopez [facility] Start: 04-22-2023 End: 04-23-2023 Office outpatient visit 15 minutes Trip Sosa MD Work Phone: [facility] Comment on above: Other cardiomyopathy (Primary Dx); Palpitations Start: 04-12-2023 Telephone encounter Alicia baumann MD Work Phone: [facility] Comment on above: Question and update Start: 01-13-2023 End: 01-14-2023 ambulatory Jessica Lopez Facility:[facility] Start: 01-13-2023 End: 01-13-2023 Patient encounter procedure Jessica Lopez [facility] Start: 12-28-2022 End: 12-29-2022 ambulatory Petty AMBROSE [place] Start: 12-28-2022 End: 12-28-2022 Patient encounter procedure Petty AMBROSE [facility] Start: 12-22-2022 End: 12-23-[address] DOCTOR HENAO Facility:[facility] Start: 12-21-2022 End: 12-22-[address] DOCTOR HENAO Facility:[facility] Start: 12-21-2022 End: 12-22-2022 ambulatory Jessica Lopez Facility:[facility] Start: 12-21-2022 End: 12-21-2022 Patient encounter procedure Jessica Lopez [facility] Start: 12-19-2022 End: 12-20-[address] DOCTOR HENAO Facility:[facility] Start: 11-19-2022 End: 11-20-[address] DOCTOR HENAO Facility:[facility] Start: 11-14-2022 Orders Only Alicia Bolivar MD Work Phone: [facility] Comment on above: Developmental venous anomaly (Primary Dx) Start: 11-06-2022 ambulatory Kia Colin RN [facility] Start: 11-05-2022 End: 11-06-[address] DOCTOR HENAO Facility:[facility] Start: 10-01-2022 End: 10-01-2022 Office outpatient visit 15 minutes Trip Sosa MD Work Phone: [facility] Comment on above: Other cardiomyopathy (Primary Dx) Start: 09-15-2022 End: 09-16-[address] CJ LAZO Facility:[facility] Start: 08-14-2022 End: 08-15-[address] DOCTOR HENAO Facility:[facility] Start: 03-24-2022 End: 03-24-2022 ambulatory Yas Garcia Other [facility] Other Start: 03-24-2022 Telephone encounter Yas Garcia [facility] Start: 03-22-2022 End: 03-22-2022 ambulatory Yas Garcia Other [employer] Other Start: 03-22-2022 Office outpatient vi sit 15 minutes Yas Garcia [facility] Start: 03-19-2022 End: 03-19-2022 Office outpatient visit 15 minutes Trip Sosa MD Work Phone: [facility] Comment on above: Cardiac syndrome X ( Primary Dx); Palpitations Start: 03-19-2022 End: 03-19-2022 Subsequent hospital visit by physician Justyna HUANG Work Phone: [facility] Comment on above: Arrived Start: 03-12-2022 End: 03-12-2022 Departed Referred SKIN CARE TECHNICIAN-Caprice Alexander Work Phone: [facility] [place] Start: 03-12-2022 End: 03-12-2022 ambulatory Denise Maxwellault Other [facility] [employer] Other Start: 03-12-2022 Office outpatient ne w 20 minutes Denise Maxwellault [facility] Start: 02-20-2022 End: 02-21-[address] PADRON [facility] Facility: Procedures Date Procedure Procedure Detail Performing Clinician Start: 06-22-2024 Cta hrt cornry art/bypass grfts contrst 3d post Justyna Heller [employer]OM 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 [employer] Work Phone: Start: 05-24-2024 SARS-CoV-2, Influenza & RSV (PCR) MD Blessing Lazo Work Phone: Start: 05-24-2024 Lobectomy of thyroid gland MD Cj killian Work Phone: Start: 05-17-2024 Basic metabolic panel calcium total Ever Woodward DO Work Phone: Start: 05-17-2024 Complete blood count with white cell differential, automated Ever Woodward DO Work Phone: Start: 09-17-2023 Mammography Ever Woodward DO Work Phone: Start: 12-28-2022 Esophagogastroduodenoscopy Petty AMBROSE Comment on above: esophageal dilation; multiple stomach bi opsies Start: 12-19-2022 Lipid 1996 panel - Serum or Plasma Jamel Sosa MD Work Phone: Start: 11-05-2022 CHEM 7 PANEL, MANUAL ENTER Historical Provider Start: 03-19-2022 Echo tthrc r-t 2d w/wom-mode compl spec&colr d Justyna Heller 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 Work Phone: Start: 03-12-2022 Piperacillin/tazobactam Denise Palaciosl t Other Start: 09-18-2021 Lipid 1996 panel - Serum or Plasma Justyna Heller 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 Work Phone: Start: 09-27-2020 Colonoscopy Ever Woodward DO Work Phone: Start: 09-27-2020 Colonoscopy Jessicaapril IzaguirreJohn Esophagogastroduoden oscopy gastric outlet reduction Jessica Lopez Plan of Treatment Date Care Activity Detail Author Start: 09-27-2030 Screening for malign ant neoplasm of colon [facility] Start: 10-07-2028 Screening for malign ant neoplasm of cervix [facility] Start: 12-20-2027 Lipid panel LIPID SCREENING [facility] Start: 09-18-2026 Fasting lipid profile LIPID SCREENIN G [facility] Start: 09-18-2026 Lipid panel LIPID SCREENING [facility] Start: 01-05-2026 Tetanus vaccination TETANUS [facility] Start: 01-05-2026 Urine microalbumin profile DTa P,Tdap,Td Vaccine (2 - Td or Tdap) [facility] Start: 12-29-2024 End: 12-29-2024 Patient encounter procedure 12/29/2024 9:00 AM EDT Office Visit [facility] [address] [place] [address] Ever Woodward DO [address] [place] [address] [facility] Start: 12-21-2024 End: 12-21-2024 Patient encounter procedure 12/21/2024 1:45 PM EDT Office Visit [facility] [address] [place] [address] Trip Sosa MD [address] [place] [address] [facility] Start: 10-31-2024 End: 10-31-2024 Patient encounter procedure 10/31/2024 10:45 AM EST Office Visit [facility] [address] [place] [id number] Ilana Kumari DO [address] [address] [place] [address] [facility] Start: 09-18-2024 Diabetes Screening Diabetes Screenin g [facility] Start: 09-17-2024 Screening for malign ant neoplasm of breast Mammogram [facility] Start: 07-06-2024 End: 06-01-2025 Thyrotropin [Units/volume] in Serum or Plasma [facility] Work Phone: Comment on above: Expected: 07/06/2024 (Approximate), Expires: 06/01/2025 Start: 07-06-2024 End: 06-01-2025 Triiodothyronine (T3) [Mass/volume] in Serum or Plasma T3 Lab Routine Thyroid nodule (CMS/HCC) Expected: 07/06/2024 (Approximate), Expires: 06/01/2025 [facility] Comment on above: Expected: 07/06/2024 (Approximate), Expires: 06/01/2025 Start: 06-08-2024 End: 06-08-2024 Patient encounter procedure [facility] Comment on above: Arrived Start: 06-01-2024 End: 06-01-2024 Patient encounter procedure [facility] Comment on above: Arrived Start: 05-24-2024 [facility] Start: 05-24-2024 End: 05-24-2024 Patient encounter procedure 05/24/2024 9:45 AM EDT Procedure Visit [facility] Ever Woodward, DO [address] [place] [address] [facility] Start: 05-24-2024 [facility] Start: 05-07-2024 COVID-19 VACCINE () COVID-19 VACCINE ( season) [facility] Start: 05-07-2024 Influenza vaccination Influenza Vacc ine (#1) [facility] Start: 05-05-2024 End: 05-05-2024 Patient encounter procedure 05/05/2024 9:00 AM EDT Office Visit [facility] [address] [place] [address] Ever Woodward, [address] [facility] [place] [address] Arrived [facility] [address] Comment on above: Arrived Start: 04-19-2024 Patient referral [facility] Work Phone: Start: 12-10-2023 Patient referral [facility] Work Phone: Start: 11-04-2023 End: 11-04-2023 Patient encounter procedure 11/04/2023 3:15 PM EST Office Visit [employer] [facility] [address] [place] [phone] Trip Sosa MD [address] [place] [address] [facility] Start: 09-22-2023 Screening for malign ant neoplasm of breast MAMMOGRAM SCREENING DISCUSSION [facility] Start: 09-06-2023 Depression Assessment Depression Ass essment [facility] Start: 06-06-2023 End: 12-14-2023 Mri brain brain stem w/o w/contrast material MRI BRAIN WO/W IVCON Radiology Routine Developmental venous anomaly Expected: 06/06/2023 (Approximate), Expires: 12/14/2023 [facility] Work Phone: Comment on above: Expected: 06/06/2023 (Approximate), Expires: 12/14/2023 Start: 05-07-2023 COVID-19 VACCINE ( season) COVID-19 VACCINE ( season) [facility] Start: 05-07-2023 Influenza vaccination C [facility] Start: 04-22-2023 End: 04-22-2023 Patient encounter procedure 04/22/2023 Office Visit Cardiovascular Medicine Trip Sosa MD [address] [place] [phone] [facility] Start: 10-01-2022 End: 10-01-2022 Patient encounter procedure 10/01/2022 Office Visit Cardiovascular Medicine Trip Sosa MD [address] [place] [phone] [facility] Start: 09-06-2022 [facility] Start: 05-07-2022 Influenza vaccination [facility] Start: 03-12-2022 Bacteria identified in Urine by Culture Urine Culture [facility] Start: 02-16-2021 DIABETES SCREEN DIABETES SCREEN [facility] Start: 12-17-2020 DIABETES SCREEN DIABETES SCREEN [facility] Start: 2020 COLOGUARD (FIT-DNA) COLOGUARD (FIT-D NA) [facility] Start: 2020 Colonoscopy [facility] Start: 2020 COLORECTAL CANCER SCREENING COLORECTAL CANCER SCREENING [facility] Start: [address] COLONOGRAPHY [facility] Start: 2020 FECAL OCCULT BLOOD FECAL OCCULT BLOO D [facility] Start: 2020 LIPID SCREEN LIPID SCREEN [facility] Start: 2020 Screening for malign ant neoplasm of colon [facility] Start: 2020 SIGMOIDOSCOPY SIGMOIDOSCOPY [facility] Start: 2015 Mammography MAMMOGRAM [facility] Start: 2015 Screening for malign ant neoplasm of breast [facility] Start: 2015 Screening mammography MAMMOGRA M SCREENING DISCUSSION [facility] Start: 2005 HPV TESTING HPV TESTING [facility] Start: 2005 Screening for malign ant neoplasm of cervix HPV Testing [facility] Start: 1996 PAP TESTING PAP TESTING [facility] Start: 1996 Screening for malign ant neoplasm of cervix [facility] Start: 1994 Third diphtheria, te tanus and acellular pertussis (DTaP) vaccination TDAP (ADULT) [facility] Start: 1994 Urine microalbumin profile DTAP,TDAP ,TD (1 - Tdap) [facility] Start: 1993 HIV SCREENING HIV SCREENING [facility] Start: 1993 HIV screening HIV Screening [facility] Start: 1993 Tetanus vaccination TETANUS [facility] Start: 1990 HIV screening HIV SCREENING DISCUSSION [facility] Start: 1975 COVID-19 VACCINE (#1) COVID-19 VACCI NE (#1) [facility] Start: 1975 HEPATITIS B (1 of 3 - 3-dose series) HEPATITIS B (1 of 3 - 3-dose series) [facility] Start: 1975 Hepatitis C antibody , confirmatory test HEPATITIS C VIRUS SCREENING [facility] Start: 1975 Hepatitis C screening HEPATITI S C VIRUS SCREENING [facility] Start: 1975 Screening for malign ant neoplasm of colon [facility] Start: 1975 Tetanus vaccination TETANUS [facility] Bacteria identified in Urine by Culture [facility] Work Phone: End: 11-23-2024 MR Brain WO contrast MRI BRAIN WO IVCON Radiology Routine Vascular malformation Congenital vascular anomaly 1 Occurrences starting 10/25/2023 until 11/23/2024 [facility] Work Phone: Comment on above: 1 Occurrences starti ng 10/25/2023 until 11/23/2024 Patient Education Know your Meds [facility] Work Phone: Patient referral [facility] Work Phone: [place] Thyroid gland [facility] XR Lumbar spine 2 or 3 Views [facility] Immunizations Immunization Date Immunization Notes Care Provider Candy garcia 07-09-2016 hepatitis A and hepatitis B vaccine Jessica Lopez [facility] 02-04-2016 hepatitis A and hepatitis B vaccine Jessica Izaguirremetz [facility] 01-06-2016 hepatitis A and hepatitis B vaccine Jessica Izaguirremetz [facility] 01-06-2016 tetanus toxoid, reduced diphtheria toxoid, and acellular pertussis vaccine, adsorbed Jessicaapril Lopez [facility] 01-06-2016 typhoid vaccine, unspecified formulation Jessicaapril [facility]irreJohn [facility] NEGATED: Highlighted row has not occurred!11-03-2023 influenza virus vaccine, unspecified formulation Jessicaapril IzaguirreJohn [facility] Payers Date Payer Category Payer Unknown [id number] 1975 Unknown [id number] 2.16.84 [id number] 1975 Unknown [id number] 2.16.84 0.1.562608.3.579.2.593 1975 Unknown [id number] 2.16.84 0.1.162899.3.579.2.593 1975 Unknown [id number] 2.16.84 0.1.009072.3.579.2.593 1975 Unknown [id number] 2.16.84 0.1.106780.3.579.2.593 1975 Unknown [id number] 2.16.84 0.1.614667.3.579.2.593 1975 Unknown [id number] 2.16.84 0.1.267723.3.579.2.593 1975 Unknown [id number] 2.16.84 0.1.252296.3.579.2.593 1975 Unknown [id number] 2.16.8 40.1.151788.3.579.2.727 1975 Unknown [id number] 2.16.8 40.1.606723.3.579.2.727 1975 Unknown [id number] 2.16.8 40.1.168625.3.579.2.727 1975 Unknown [id number] 2.16.8 40.1.505784.3.579.2.727 1975 Unknown [id number] 2.16.8 40.1.315257.3.579.2.727 1975 Unknown [id number] 2.16.8 40.1.671534.3.579.2.727 1975 Unknown [id number] 2.16.84 0.1.037912.3.579.2.1259 1975 Unknown [id number] 2.16.84 0.1.769152.3.579.2.1259 1975 Unknown [id number] 2.16.84 0.1.209722.3.579.2.1259 1975 Unknown [id number] 2.16.84 0.1.329025.3.579.2.1259 1975 Unknown [id number] 2.16. 840.1.249756.3.579.2.594 1975 Unknown [id number] 2.16. 840.1.695691.3.579.2.594 1975 Unknown [id number] 2.16. 840.1.273811.3.579.2.594 1975 Unknown [id number] 2.16. 840.1.305636.3.579.2.594 1959 Unknown [id number] 2. [id number] Self-pay Self Pay [id number] Social History Date Type Detail Facility Tobacco smoking stat us NHIS Unknown if ever smoked [facility] Work Phone: Start: 1975 Sex Assigned At Female [facility] [place] Start: 06-21-2018 End: 05-05-2024 Sex Assigned At [facility] Start: 03-20-2021 End: 05-05-2024 Tobacco smoking status NHIS Never smoked tobacco [facility] Start: 03-20-2021 End: 05-05-2024 Tobacco use and exposure Smokeless tobacco non-user [facility] Start: 03-19-2022 End: 06-22-2024 Alcohol intake Current non-drinker of alcohol (finding) [facility] Start: 03-19-2022 End: 05-05-2024 Alcohol intake [facility] Start: 1975 Sex Assigned At Not on file [facility] Start: 09-21-2022 End: 10-01-2022 Exposure to SARS-CoV-2 (event) Not sure [facility] Start: 06-21-2018 Alcohol intake Not Asked Humberto Jones Tobacco smoking status Never [facility] Gender identity Identifies as fe male gender (finding) [facility] Start: 05-31-2024 End: 06-01-2024 Alcoholic beverage intake Lifetime non-drinker (finding) [facility] Start: 10-05-2023 Alcohol Comment Caffeine intak e: 1-2 cups per day chocolate [facility] Goals Date Patient Goal Desired Activity /State Functional Status Date Assessment Result Facility 12-20-2023 Functional Status N/A [facility] 05-04-2023 Functional Status N/A [facility] 01-13-2023 Functional Status N/A [facility] 12-28-2022 Functional Status N/A [facility] 12-21-2022 Functional Status N/A [facility] Clinical Notes 03-12-2022 to 06-22-2024 Mario Pascal RN - 06/22/2024 1:15 PM EDREINA Harrell - 06/22/2024 1:15 PM EDTTrip Sosa MD - 06/22/2024 1:15 PM EDTPatient InstructionsMario Pascal RN - 12/02/2023 2:15 PM EDT [...] conjunction with Dr. Sosa. Patient seen with MANAGED CARE COORDINATOR I saw and personally examined this patient with the nurse practitioner. The patient complains of worsening shortness of breath with exertion and is compensated on examination. Results of CT angiogram are pending. She has microvascular CAD. We will continue the current treatment plan, as outlined in the MANAGED CARE COORDINATOR note, and consider increasing amlodipine dose if [...] documented in this encounter [facility] 06-22-2024 Instructions REINA Erickson - 06/22/2024 1:15 PM EDT The following [...] M-F 8 to 4:30 ; office # [phone], option 6, then option 2. Guidelines for home management: 1. Continue to monitor weight first thing each morning. 2. Report to the CHF CLINIC ([phone]) any significant weight change. Remember that weight [...] to have labs/tests run outside of the [facility] and you do not hear from us 1-2 days after they are performed, you must call us to ensure we received the results. Office fax # [phone]. No news does not necessarily mean that your tests are normal, it could mean we did not get the results. For questions/updates: please provide your name with spelling, date of and question or update All calls are prioritized and responses researched, if possible, prior to calls being returned. Call Scheduling for any appointment/procedure verification or changes [phone], option 7 or [facility] Schedulers at [phone], option 1. documented in this encounter [facility] 06-08-2024 History of Present illness Narrative [...] her thyroid functions. documented in this encounter [facility] 06-01-2024 History of Present illness Narrative Subjective Patient ID: Marianna Ramirez is a 49 y.o. female who presents for Post-op (Left thyroid) HPI Patient presents postop left thyroid lobectomy Review of Systems Patient states to be doing well. Pain is very well managed. Not having any difficulties with voice or swallow. The rest of her review of systems is unchanged. Objective ENT Physical Exam The area of the incision is healing quite well. Clear dressing is removed without difficulty. Results of her pathology are consistent with follicular carcinoma completely resected, 2.8 cm. Assessment/Plan Diagnoses and all orders for this visit: Thyroid nodule (CMS/HCC) - TSH; Future - T3; Future - T4; Future Follicular thyroid carcinoma (CMS/HCC) Comments: Do not recommend any further surgery, follow up for ultrasound in 6 months Will check thyroid functions in 6 weeks to look for any need for supplementation. We will check thyroid functions in 6 months. Patient will call if she has any difficulties. documented in this encounter [facility] 05-24-2024 History of Present illness Narrative Subjective Patient ID: Marianna Ramirez is a 49 y.o. female who presents for No chief complaint on file. HPI This patient presents for left thyroid lobectomy. Review of Systems Of an enlarging mass of the left thyroid lobe causing significant pressure symptoms of the neck. The rest of her review of systems is unchanged. Objective ENT Physical Exam Large nodular mass noted within the confines of the left thyroid lobe. Recurrent laryngeal nerve identified maintained. Parathyroid gland at the superior aspect is auto transplanted into the sternocleidomastoid muscle. Assessment/Plan Diagnoses and all orders for this visit: Thyroid nodule (CMS/HCC) Comments: Left thyroid lobectomy completed, follow up in the office as scheduled documented in this encounter [facility] 05-05-2024 History of Present illness Narrative Subjective Patient ID: Marianna Ramirez is a 48 y.o. female who presents for Thyroid Nodule (New Patient : Thyroid nodule) HPI 48-year-old white female presents today for evaluation of enlarging lesion of the left thyroid gland. Patient describes difficulties going on for the past few months. Does describe pressure symptoms in the left side of her neck. Denies any voice change. Review of Systems Patient denies any fever or weight change. Denies any pain but does describe pressure sensations in the left side of her neck. Denies any shortness of breath. She does take medication for her heart. Has a history of microvascular disease. The rest of her review of systems is negative. Allergies as of 05/05/2024 - Reviewed 05/05/2024 Allergen Reaction Noted Gadolinium derivatives Anaphylaxis and Rash 10/19/2018 Iodinated contrast media 10/07/2023 Fentanyl Rash 07/25/2019 Midazolam Rash 07/25/2019 Past Medical History: Diagnosis Date Abdominal bloating 05/04/2024 Abdominal cramping 05/04/2024 Abnormal uterine bleeding 05/04/2024 Acid reflux 05/04/2024 Anemia Arthralgia 05/04/2024 Bilateral hearing loss 05/04/2024 Cardiomyopathy (CMS/HCC) Cardiomyopathy (CMS/HCC) 10/06/2002 Chronic pharyngitis 05/04/2024 Diarrhea 05/04/2024 Esophageal dysphagia 03/03/2019 Added automatically from request for surgery [id number] Family history of lupus erythematosus 05/21/2016 Family history of rheumatoid arthritis 05/21/2016 Fibromyalgia 05/21/2016 Heart murmur Heartburn 05/04/2024 Hypertension ([facility]) Insomnia 05/04/2024 Intestinal metaplasia of gastric cardia 07/12/2019 Added automatically from request for surgery [id number] Irritable bowel syndrome Irritable bowel syndrome with both constipation and diarrhea 03/03/2019 Added automatically from request for surgery [id number] Joint stiffness of multiple sites 05/21/2016 Laryngopharyngeal reflux 05/04/2024 Left thyroid nodule ([facility]) 05/04/2024 Lightheadedness 05/04/2024 Localized swelling, mass and lump, head 05/04/2024 Lumbar pain 05/04/2024 Menstrual disorder 05/04/2024 Menstrual migraine ([facility]) 05/04/2024 Mixed irritable bowel syndrome 05/04/2024 Myalgia 05/21/2016 Nausea 05/04/2024 Numbness and tingling sensation of skin 05/21/2016 Other somatoform disorders ([facility]) 05/04/2024 Pain in joint, multiple sites 05/21/2016 Palpitations 05/04/2024 RUQ pain 05/04/2024 Current Outpatient Medications: amLODIPine (Norvasc) 2.5 MG tablet, , Disp: , Rfl: carvedilol (Coreg) 25 MG tablet, TAKE 2.5 TABLETS BY MOUTH 2 TIMES DAILY WITH MEALS., Disp: , Rfl: cetirizine (ZyrTEC ALLERGY) 10 MG tablet, 1 (one) time each day at the same time, Disp: , Rfl: Wheat Dextrin (Benefiber) powder, as directed Orally, Disp: , Rfl: Past Surgical History: Procedure Laterality Date HEART CATH 2002 biopsy OTHER SURGICAL HISTORY 1982 Urethra extended TENDON REPAIR 2011 VAGINAL DELIVERY x2 Social History Socioeconomic History Marital status: Spouse name: Not on file Number of children: Not on file Years of education: Not on file Highest education level: Not on file Occupational History Not on file Tobacco Use Smoking status: Never Smokeless tobacco: Never Substance and Sexual Activity Alcohol use: Never Comment: Caffeine intake: 1-2 cups per day chocolate Drug use: Never Sexual activity: Yes Partners: Male control/protection: Other Other Topics Concern Not on file Social History Narrative Not on file Social Determinants of Health Financial Resource Strain: Not on file Food Insecurity: Not on file Transportation Needs: Not on file Physical Activity: Not on file Stress: Not on file Social Connections: Not on file Intimate Partner Violence: Not on file Housing Stability: Not on file \ Objective ENT Physical Exam General Examination: General overview: Normal, age-appropriate, no evidence of distress Head: Normocephalic, atraumatic Eyes: Pupils are equally round and reactive to light and accommodation, extraocular muscles are intact Ears: External ear architecture within normal limits, ear canals are patent, tympanic membranes are intact. Nose: External nose unremarkable, nares patent, septum intact, no evidence of congestion. Oral cavity: Mucosa moist, no evidence of ulcer, mass, or lesion Throat: Clear Neck/thyroid: Neck supple, full range of motion, no cervical lymphadenopathy, obvious evidence of left-sided thyromegaly. Thyroid ultrasound: Indication: Thyroid goiter /thyroid nodule(s) Consent: Proper consent is obtained. The procedure risks are explained in detail. Questions were encouraged and answered Anesthesia: No anesthesia given Preparation: The patient was placed in proper position. Patient is prepped in standard fashion. Findings: Ultrasound is completed of the thyroid gland. There is a large dominant nodule of the left thyroid lobe measuring 2.5 by 3.8 cm. It is hypoechoic with some increased vascular changes. No microcalcifications. Ultrasound examination of larynx reveals bilateral vocal cord motion. Disposition: The patient tolerated the procedure extremely well. Patient is fully instructed on postprocedure care and follow-up in this office. Lymph nodes: No cervical lymphadenopathy Skin: Warm and dry, no evidence of suspicious lesions, no rash Heart: No jugular venous distention, point of maximal impulse normal Lungs: Good air movement, no audible wheezing, no shortness of breath Chest: Normal shape and expansion Abdomen: Normal, soft, nontender, nondistended Musculoskeletal: Cervical spine normal, full range of motion Extremities: No clubbing, cyanosis, or edema Peripheral pulses: 2+ radial, 2+ carotid Neurologic: Alert and oriented, cranial nerves 2-12 are grossly intact Psych: Alert and oriented, normal affect, no evidence of distress Assessment/Plan Diagnoses and all orders for this visit: Thyroid nodule (CMS/HCC) Comments: Do recommend left thyroid lobectomy, possible total thyroidectomy Globus sensation Comments: Would anticipate improvement after thyroidectomy. Patient does have a significant cardiac history and we will need to get approval from her pier hand. Recommend thyroid function testing prior to surgery intervention. documented in this encounter [facility] 04-19-2024 Hospital Discharge instructions Ambulatory OrdersReferral to ENT Time Frame: 04/19/24, Location: [facility] Work Phone: 12-03-2023 Hospital Discharge instructions Follow Up Care 12/03/2023 15:41:19 With:Luis CLINE, Viral Garcia [facility] Address: [address] [place] [address], [facility] [address] [phone] When:3 months [facility] 12-02-2023 History of [...] conjunction with Dr. Sosa. Patient seen with MANAGED CARE COORDINATOR I saw and personally examined this patient with the nurse practitioner. The patient is generally doing well and is compensated on examination. Her complaints seem referable to the gastrointestinal and skeletal muscle systems. We recommended she follow-up was a educational aid and a inspector brake lining, the latter especially given the strong family history of rheumatological disorders (RA, lupus). Otherwise, we will continue the current treatment plan, as outlined in the MANAGED CARE COORDINATOR note. The plan was developed mutually at the time of the clinic visit. The nurse practitioner and I spoke with the patient and provided written and verbal instructions for the patient. The note has been reviewed and I agree with the assessment and plan. Follow up arrangements were made prior to the patient being discharged from the clinic. documented in this encounter [facility] 12-02-2023 Instructions REINA Erickson - 12/02/2023 2:15 PM EDT The following instructions were given today: -follow up with rheumatology and gastroenterology Your after visit summary (AVS) is viewable in [facility] My Chart. Call RN if you have cardiac questions/concerns M-F 8 to 4:30 ; office # [phone], option 6, then option 2. Guidelines for home management: 1. Continue to monitor weight first thing each morning. 2. Report to the CHF CLINIC ([phone]) any significant weight change. Remember that weight [...] to have labs/tests run outside of the [facility] and you do not hear from us 1-2 days after they are performed, you must call us to ensure we received the results. Office fax # [phone]. No news does not necessarily mean that your tests are normal, it could mean we did not get the results. For questions/updates: please provide your name with spelling, date of and question or update All calls are prioritized and responses researched, if possible, prior to calls being returned. Call Scheduling for any appointment/procedure verification or changes [phone], option 7 or [facility] Heart Schedulers at [phone], option 1. documented in this encounter [facility] 10-29-2023 Miscellaneous Notes CV PHONE Name of caller : Avis Relationship to patient : [facility] If not self Will need patient permission to release results or disclose health information with called documented in . Patient identified by Name and Date of . ( Marianna Ashley, 1975). Yes Number to return call [phone] Reason for Call: Avis is calling from [facility] to obtain notes and information for prior Auth of MRI WO IVCON. Sent: Thank you calling [facility] [place]. You will receive a return call within 48 hours ( or 2 business days if close to the weekend). If you feel that this is an urgent issue and needs immediate attention, it is recommended that you contact your primary care provider office or proceed to your nearest Urgent Care Center of Emergency Room ED for evaluation/treatment. documented in this encounter [facility] 10-25-2023 Miscellaneous Notes Called patient. She [...] Trivedibre, 1975). Yes Number to return call [phone] Reason for Call: Symptoms Call: Symptoms: headache [...] something else going on. Thank you calling [facility] [place]. You will receive a return call within 48 hours ( or 2 business days if close to the weekend). If you feel that this is an urgent issue and needs immediate attention, it is recommended that you contact your primary care provider office or proceed to your nearest Urgent Care Center of Emergency Room ED for evaluation/treatment. documented in this encounter [facility] 05-04-2023 Hospital Discharge instructions Patient Education [...] grapefruit, pineapple, and jeff. Vegetables Deep-fried vegetables. Trinidadian fries. Any vegetables prepared with added fat. [...] provider. Document Revised: 03/03/2021 Document Reviewed: 03/03/2021 [employer] Patient Education 2022 Nala. Follow Up Care 01/28/2023 14:16:26 With:Jessica Lopez CNP Address: When:6 months [facility] 04-22-2023 History of Present illness Narrative Patient Education Patient education regarding the following topic(s) was provided on 04/22/2023: plan of care. -Increase Coreg to 1.5 tablets (37.5mg) twice a day with food. -Follow up with Dr. Soas in 6 months. Those in attendance for [...] week and HR fluctuating/palpitatations (refer to 03/31/23 Yovia message for detailed symptoms). Continues to go [...] conjunction with Dr. Sosa. Patient seen with MANAGED CARE COORDINATOR I saw and personally examined this patient with the nurse practitioner. The patient complains of increased palpitations.Both her resting and exercise heart rates have risen over the past several weeks.She is compensated on examination. We will increase the dose of carvedilol and otherwise continue the current treatment plan, as outlined in the MANAGED CARE COORDINATOR note. The plan was developed mutually at [...] documented in this encounter [facility] 04-22-2023 Instructions Cecilia Spencer RN - 04/22/2023 3:45 PM EDT The following instructions were given today: -Increase Coreg to 1.5 tablets (37.5mg) twice a day with food. -Follow up with Dr. Sosa in 6 months. Your after visit summary (AVS) is viewable in [facility] My [facility]. Call RN if you have cardiac questions/concerns M-F 8 to 4:30 ; office # [phone], option 6, then option 2. Guidelines for home management: 1. Continue to monitor weight first thing each morning. 2. Report to the CHF CLINIC ([phone]) any significant weight change. Remember that weight [...] to have labs/tests run outside of the [facility] and you do not hear from us 1-2 days after they are performed, you must call us to ensure we received the results. Office fax # [phone]. No news does not necessarily mean that your tests are normal, it could mean we did not get the results. For questions/updates: please provide your name with spelling, date of and question or update All calls are prioritized and responses researched, if possible, prior to calls being returned. Call Scheduling for any appointment/procedure verification or changes [phone], option 7 or [facility] Schedulers at [phone], option 1. documented in this encounter [facility] 04-14-2023 Miscellaneous Notes Called patient. She [...] Ramirez, 1975). Yes Number to return call [phone] Reason for Call: Patient Question/Update: Marianna is calling to say she developed an allergy to contrast and cannot have MRI W/WO. Also she would like to know if she can have it done locally. Please call. Thank you calling [facility]. You will receive a return call within 48 hours ( or 2 business days if close to the weekend). If you feel that this is an urgent issue and needs immediate attention, it is recommended that you contact your primary care provider office or proceed to your nearest Urgent Care Center of Emergency Room ED for evaluation/treatment. documented in this encounter [facility] 01-13-2023 Hospital Discharge instructions Patient Education [...] Follow these instructions at home: Medicines Take wjre-fvf-kictroo and prescription medicines only as told by your health care provider. If you were prescribed an antibiotic medicine, take it as told by your health care provider. Do not stop taking the antibiotic even if you start to feel better. Eating and drinking Make any diet changes as told by your health care provider. Work with a diet and nutrition associate (dietitian) to create an eating plan that [...] provider. Document Revised: 04/12/2021 Document Reviewed: 04/12/2021 [employer] Patient Education 2022 Nala. Follow Up Care 01/07/2023 14:24:39 With:Jessica Lopez CNP Address: When:3 months [facility] 12-30-2022 Note [id number]:[id number] [facility] 12-28-2022 Evaluation + Plan note Extrac vladimir from: Title:CSB post op Author:Frank Tovar MD Date:12/28/22 Plan Transfer/Discharge: Transfer/Discharge Discharge when meets criteria ( To home ). Extracted from: Title:CSB GA Author:Frank Tovar MD Date:12/28/22 Plan [place] [employer] Anesthesiologists (ASA) physical status classification: Class II. Anesthetic Preoperative Plan: Anesthesia General. [facility]04-24-2023 Hospital Discharge instructions Patient Education 12/28/2022 10:55:03 [...] including vitamins, herbs, eye drops, creams, and fiuk-pak-xvkzmqg medicines. Any problems you or family members [...] provider tells you to take them. ?Taking hkjn-maa-bqykimn medicines, vitamins, herbs, and supplements. Follow instructions [...] home. Follow these instructions at home: Take wafq-rmi-kavmmot and prescription medicines only as told by [...] provider. Document Revised: 01/08/2021 Document Reviewed: 01/08/2021 [employer] Patient Education 2022 Nala. 12/28/2022 10:55:03 Endoscopy, Care After Procedure [facility] [place] Endoscopy Care After Procedure Please read the instructions outlined below and refer to this sheet in the next few weeks. These discharge instructions provide you with general information on caring for yourself after you leave thespital. Your doctor may also give you specific [...] Document Re-Released: 02/14/2007 ExitCare Patient Information 2009 [email or web address]. Follow Up Care 12/21/2022 13:31:10 With:Dove MONSERRAT Address: [address] [place] [address] [facility] (1) When:1 to 2 weeks Comments:Call for any problems. [facility]04-17-2023 Hospital Discharge instructions Patient Education 12/21/2022 12:29:14 [...] per serving. Talk with a diet and nutrition associate (dietitian) if you have questions about specific [...] Bulgur wheat. Millet. Quinoa. Bran muffins. Popcorn. [place] wafer crackers. Meats and other proteins [place]el, kidney, and aparicio beans. Soybeans. Split peas. [...] Cream cheese. Sour cream. Fats and oils [place]. Beverages Soft drinks. Other foods Cakes and [...] 08/23/2006 Document Revised: 06/27/2018 Document Reviewed: 06/27/2018 [employer] Patient Education 2020 Nala. Follow Up Care 12/17/2022 13:25:02 With:Jessica Lopez CNP Address: When:1 month [facility] [phone] Telephone encounter Note* Telephone Encounter - REINA Erickson - 11/12/2022 8:39 AM EST Send MyGeek[employer]t message to Marianna for update, K a little low at 3.5. [facility]03-09-2023 Miscellaneous Notes* Telephone Encounter - REINA Erickson - 11/12/2022 8:39 AM EST Send MyGeekDayt message to Marianna for update, K a little low at 3.5. * Telephone Encounter - Kia Colin RN - 11/06/2022 3:12 PM EST 11/05/22 faxed lab results from [facility] entered and copy sent to [facility]. Fwd to Dr Sosa and EMANI. [facility] Tele[facility] encounter Note* Telephone Encounter - Kia Colin RN - 11/06/2022 3:12 PM EST 11/05/22 faxed lab results from [facility] entered and copy sent to [facility]. Fwd to Dr Sosa and EMANI. [facility]01-26-2023 History of Present illness Narrative* Justyna Heller, CUSTOM 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 MAKER-[employer]YWOOD SCARFER TENDER - 10/01/2022 2:45 PM EST History of [...] a little bit. Really enjoyed going to [employer] for a trip in a RV. On [...] conjunction with Dr. Sosa. [facility] Instructions* Patient Instructions* Janine Fu RN [...] M-F 8 to 4:30 ; office # [phone], option 6, then option 2. Guidelines for home management: 1. Continue to monitor weight first thing each morning. 2. Report to the CHF CLINIC ([phone]) any significant weight change. Remember that weight [...] to have labs/tests run outside of the [facility] and you do not hear from us1-2 days after they are performed, you must call us to ensure we received the results. Office fax #[phone]. No news does not necessarily mean that your tests are normal, it could mean we did not get the results. For questions/updates: please provide your name with spelling, date of and question or update All calls are prioritized and responses researched, if possible, prior to calls being returned. Call Scheduling for any appointment/procedure verification or changes [phone], option 7 or [facility] [phone], option 1. [facility] Evaluation note * Encounter Date [...] understanding and is agreeable with treatment plan [facility] Other 07-14-2022 Instructions* Patient Instructions* Janine Fu [...] M-F 8 to 4:30 ; office # [phone], option 6, then option 2. Guidelines for home management: 1. Continue to monitor weight first thing each morning. 2. Report to the CHF CLINIC ([phone]) any significant weight change. Remember that weight [...] to have labs/tests run outside of the [facility] and you do not hear from us1-2 days after they are performed, you must call us to ensure we received the results. Office fax #[phone]. No news does not necessarily mean that your tests are normal, it could mean we did not get the results. For questions/updates: please provide your name with spelling, date of and question or update All calls are prioritized and responses researched, if possible, prior to calls being returned. Call Scheduling for any appointment/procedure verification or changes [phone], option 7 or [facility] at [phone], option 1. [facility] History of Present illness Narrative* Justyna Heller, CUSTOM 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 MAKER-[employer] SCARFER TENDER - 03/19/2022 3:15 PM EDT History of [...] scale back a little bit. Going to [employer] for a trip in a RV. Stillhas [...] 03/19/2022 3:15 PM EDT Patient seen with MANAGED CARE COORDINATOR I saw and personally examined this patient [...] thecurrent treatment plan, as outlined in the MANAGED CARE COORDINATOR note. The plan was developed mutually at [...] clinic. [facility] Evaluation note * Encounter Date [...] Follow up with primary care provider or car distributor if no improvement of symptoms. [facility] Other Evaluation + Plan note Future Appointments Appointment Date:12/28/2022 10:35:00 AM Scheduled Provider: Location:[facility] Appointment Type:Surgery FT Diagnostic Tests Pending * Enteric Panel by PCR 12/21/22 * Clostridium Difficile PCR 12/21/22 * Fecal WBC Lactoferrin 12/21/22 * O & P Exam, Routine 12/21/22 * Giardia lamblia, Direct Detection EIA 12/21/22 * CBC w/ Auto Diff 12/21/22 * Comprehensive Metabolic Panel 12/21/22 [facility] Evaluation + Plan note Future Appointments Appointment Date:11/04/2023 12:20:00 PM Scheduled Provider:Jessica Lopez CNP [place] [place] [facility] Type[facility] Follow Up [facility] Evaluation noteNo assessment information available [facility] Work Phone: Evaluation note* 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 [place] [facility]* Diagnosis Onset Date Resolution Status Arthralgia acute Family history of lupus acut e Lumbar pain acute [facility] Work Phone: Evaluation note* Diagnosis Onset Date Resolution Status Swelling, mass, or lump in head and neck acute [facility] Work Phone: Evaluation note* Diagnosis Follicular thyroid carcinoma (CMS/HCC)- Primary Malignant neoplasm of thyroid gland documented in this encounter [facility] HealthcareEvaluation note* Diagnosis Cardiac microvascular disease- Primary Other and unspecified angina pectoris documented 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* Diagnosis Thyroid nodule (CMS/HCC)- Primary Nontoxic uninodular goiter Globus sensation Gastrointestinal malfunction arising from mental factors documented in this encounter [facility] HealthcareEvaluation note* Diagnosis Thyroid nodule (CMS/HCC)- Primary Nontoxic uninodular goiter documented in this encounter [facility] HealthcareEvaluation note* Diagnosis Thyroid nodule (CMS/HCC)- Primary Nontoxic uninodular goiter Follicular thyroid carcinoma (CMS/HCC) Malignant neoplasm of thyroid gland documented in this encounter [facility] HealthcareHistory general Narrative - Reported* Type Description Date Medical History cardiomyopathy [facility] [employer] Other Hospital course Narrative No data available for this section [facility] Hospital Discharge instructions No data available for this section [facility] Hospital Discharge instructionsAmbulatory Orders* Referral to Pain Management Time Frame: 12/10/23, Location: None Selected * Referral to Rheumatology Time Frame: 12/10/23, Location: None Selected [facility] Work Phone: Hospital Discharge instructions Additional [...] office to follow up in one week. [][facility] Work Phone: Progress note No data available for this section [facility] Reason for Referral Specialty Diagnoses / Procedures Referred By Contac t Referred To Contact Diagnoses Cardiac microvascular disease Atypical chest pain Procedures CT ANGIO CARDIAC WITH CORONARY ARTERIES CHG CTA HRT CORNRY ART/BYPASS GRFTS CONTRST 3D POST Justyna Heller, CUSTOM 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 MAKER-[employer] SCARFER TENDER [address] [place] [address] Referral ID Status Reason Start Date Expiration Date Visits Re quested Visits Authorized [id number] Closed 05/18/2024 06/12/2025 1 1 Specialty Diagnoses / Procedures Referred By Fariha t Referred To Contact MR IMAGING Diagnoses Vascular malformation Congenital vascular anomaly Procedures MRI BRAIN WO IVCON MRI BRAIN BRAIN STEM W/O CONTRAST MATERIAL Jyoti Aguilera CUSTOM 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 MAKER.[employer]OD SCARFER TENDER [address] [place] [address] Mr Imaging [facility]95 Referral ID Status Reason Start Date Expiration Date Visits Requested Visits Authorized [id number] Pending Review Auto-Generat ed Referral 10/25/2023 11/23/2024 1 1 Specialty Diagnoses / Procedures Referred By Fariha t Referred To Contact MR IMAGING Diagnoses Developmental venous anomaly Procedures MRI BRAIN WO/W IVCON MRI BRAIN BRAIN STEM W/O W/CONTRAST MATERIAL Ruth Ramirez PA-C [address] [place] [address] Mr Imaging Referral ID Status Reason Start Date Expiration Date Visits Requested Visits Authorized [id number] Pending Review Auto-Generat ed Referral 06/06/2023 12/14/2023 1 1 Specialty Diagnoses / Procedures Referred By Fariha t Referred To Contact Diagnoses Cardiac microvascular disease Chronic systolic heart failure Procedures ECHOCARDIOGRAM HI ECHO HEART XTHORACIC,COMPLETE W DOPPLER Justyna Heller, CUSTOM 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 MAKER-[employer] SCARFER TENDER [address] [place] [address] Referral ID Status Reason Start Date Expiration Date Visits Re quested Visits Authorized [id number] Closed 11/27/2021 12/22/2022 1 1 Summary Purpose Family History Relationship Condition Age at Onset Recorded Date/T adryan father Unknown Relationship Condition Age at Onset Recorded Date/T daryan father Unknown Myocardial infarction Unknown mother Diabetes mellitus Unknown Malignant neoplasm of skin Unknown sister Lupus Unknown Rheumatoid arthritis Unknown sister Mitral valve prolapse Unknown brother High blood cholesterol Unknown Advance Directives Advance Directive Response Recorded [...] Status Dates HAYLIE PooleC Attending Provider Active Principal Investigator Relationship Specialty Start Date End Date Cj Lazo MD [address] [place] [address] PCP - General 02/26/11 Principal Investigator Relationship Specialty Start Date End Date Cj Lazo MD [address] [place] [address] PCP - General 02/26/11 Principal Investigator Relationship Specialty Start Date End Date Cj Lazo MD [address] [place] [address] PCP - General 02/26/11 Principal Investigator Relationship Specialty Start Date End Date Cj Lazo MD [address] [place] [phone] PCP - General Family Medicine 01/13/16 Principal Investigator Relationship Specialty Start Date End Date Cj Lazo MD [address] [place] [phone] PCP - General Family Medicine 01/13/16 Principal Investigator Relationship Specialty Start Date End Date Cj Lazo MD [address] [facility] [place] [address] PCP - General 02/26/11 Principal Investigator Relationship Specialty Start Date End Date Cj Lazo MD [address] [place] [facility] [place] [address] PCP - General Family Medicine 01/13/16 Principal Investigator Relationship Specialty Start Date End Date Cj Lazo MD [address] [place] [facility] [place] [address] PCP - General Family Medicine 01/13/16 Principal Investigator Relationship Specialty Start Date End Date Cj Lazo MD [address] [place] [facility] [place] [phone] PCP - General Family Medicine 01/13/16 Principal Investigator Relationship Specialty Start Date End Date Cj Lazo MD [address] [facility] [place], [place] [phone] PCP - General 02/26/11 Team Status: Active [...] End: April 13, 2024 Deja Pack APRN MANAGED CARE COORDINATOR-C Attending Provider Act gabriella Start: April 13, 2024 End: April 13, 2024 Team Status: Active Member Role Status Dates Cj Lazo MD Primary Care Provider Active Start: April 19, 2024 AFIA ChingC Attending Provider Act gabriella Start: April 19, [...] May 24, 2024 End: May 24, 2024 Principal Investigator Relationship Specialty Start Date End Date Cj Lazo MD [address] [place] [phone] PCP - General Family Medicine 06/01/24 Ever Woodward DO [address] [place] [address] Otolaryngology 06/01/24 Deja Pack NP [address] [place] [address] Referring Physician Family Medicine 06/01/24 Principal Investigator Relationship Specialty Start Date End Date Cj Lazo MD [address] [place] [phone] PCP - General Family Medicine 06/01/24 Ever Woodward DO [address] [place] [address] Otolaryngology 06/01/24 Deja Pack NP [address] [place] [address] Referring Physician Family Medicine 06/01/24 Principal Investigator Relationship Specialty Start Date End Date Cj Lazo MD [address] [facility] [place] [address] PCP - General 02/26/11 Principal Investigator Relationship Specialty Start Date End Date Cj Lazo MD [address] [facility] [place] [address] PCP - General 02/26/11 Principal Investigator Relationship Specialty Start Date End Date Unallocated, Henrique Greene MD [address] [place] [address] PCP - General Family Medicine 10/07/23 Principal Investigator Relationship Specialty Start Date End Date Unallocated, Henrique Greene MD [address] [place] [address] PCP - General Family Medicine 10/07/23 Principal Investigator Relationship Specialty Start Date End Date Unallocated, Henrique Greene MD [address] [place] [address] PCP - General Family Medicine 10/07/23 Principal Investigator Relationship Specialty Start Date End Date Unallocated, Henrique Greene MD [address] [place] [address] PCP - General Family Medicine 10/07/23 Principal Investigator Relationship Specialty Start Date End Date Cj Lazo MD [address] [facility] [place] [address] PCP - General Family Medicine 06/01/24 Ever Woodward DO [address] [place] [address] Otolaryngology 06/01/24 Deja Pack NP [address] [facility] [place] [address] Referring Physician Family Medicine 06/01/24 Principal Investigator Relationship Specialty Start Date End Date Unallocated, Nompradeep Provider, [address] [place] [address] PCP - General Family Medicine 10/07/23 Goals (unrecognized section and content) Goals may [...] content) Specialty Diagnoses / Procedures Referred By Fariha valle Referred To Contact Diagnoses Cardiac microvascular disease Chronic systolic heart failure Procedures ECHOCARDIOGRAM HI ECHO HEART XTHORACIC,COMPLETE W DOPPLER Justyna Heller, CUSTOM 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 MAKER-[employer] SCARFER TENDER [address] [place] [address] Referral ID Status Reason Start Date Expiration Date Visits Re quested Visits Authorized [id number] Closed 11/27/2021 12/22/2022 1 1 Reason Comments Follow-up Reason Onset Date Comments Results 11/06/2022 Reason Comments Question and update Reason Comments Symptoms Reason Comments Provider Question Reason Comments Post-op Check incision Specialty Diagnoses / Procedures Referred By Fariha valle Referred To Contact Diagnoses Cardiac microvascular disease Atypical chest pain Procedures CT ANGIO CARDIAC WITH CORONARY ARTERIES CHG CTA HRT CORNRY ART/BYPASS GRFTS CONTRST 3D POST Justyna Heller, 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 [address] [place] [address] Referral ID Status Reason Start Date Expiration Date Visits Re quested Visits Authorized [id number] Closed 05/18/2024 06/12/2025 1 1 Reason Comments Thyroid Nodule New Patient : Thyroi d nodule Reason Comments Post-op Left thyroid Source Comments (unrecognize d section and content) In the event this informatio n is protected by the Federal Confidentiality of Alcohol and Drug Abuse Patient Records regulations: The Federal rules restrict any use of the information to criminally investigate or prosecute any alcohol or drug abuse patient.[facility] the event this information is protected by the Federal Confidentiality of Alcohol and Drug Abuse Patient Records regulations: The Federal rules restrict any use of the information to criminally investigate or prosecute any alcohol or drug abuse patient.[facility] the event this information is protected by the Federal Confidentiality of Alcohol and Drug Abuse Patient Records regulations: The Federal rules restrict any use of the information to criminally investigate or prosecute any alcohol or drug abuse patient.[facility] the event this information is protected by the Federal Confidentiality of Alcohol and Drug Abuse Patient Records regulations: The Federal rules restrict any use of the information to criminally investigate or prosecute any alcohol or drug abuse patient.[facility] the event this information is protected by the Federal Confidentiality of Alcohol and Drug Abuse Patient Records regulations: The Federal rules restrict any use of the information to criminally investigate or prosecute any alcohol or drug abuse patient.[facility] INFORMATION SOURCE (unrecogn ized section and content) DATE CREATED AUTHOR 01/01/2023 [facility] DATE CREATED AUTHOR AUTHOR'S ORGANIZ ATION 11/15/2023 [facility] DATE CREATED AUTHOR AUTHOR'S ORGANIZ ATION 12/21/2023 [facility] DATE CREATED AUTHOR AUTHOR'S ORGANIZ ATION 05/31/2024 [facility] DATE CREATED AUTHOR AUTHOR'S ORGANIZ ATION 06/10/2024 [facility] EPIC DATE CREATED AUTHOR AUTHOR'S ORGANIZ ATION 06/29/2024 [facility] FOR RECORDS PERTAINING TO PATIENTS [...] BE BASED ON THE PRIMARY CLINICAL RECORDS. [employer] provides no warranty or guarantee of the accuracy or completeness of information in this document.
== END 2024-09-29 07:24 | disposition home or self-care (01) ==
LOC: MAMMO 07:23
PROVIDERS: PCP Family Medicine; Visit Provider Obstetrics & Gynecology
DX: Z12.31 Encounter for screening mammogram for malignant neoplasm of breast (principal); Z80.1 Family history of malignant neoplasm of trachea, bronchus and lung; Z80.8 Family history of malignant neoplasm of other organs or systems
CPT/HCPCS: 77063; 77067

== ENCOUNTER 2024-10-31 07:08 | Outpatient (OUT) | payer OTHER, SELFPAY ==
--- OUTSIDE RECORDS SUMMARY | 2024-10-31 07:12 | XMS_ITS | CCD ---
Author Organization [facility] Care Team Providers Care Hybrid Car Mechanic Name Role Phone GENEVIEVE Alexander Attending Provider Cj Lazo MD Primary Care Provider Yas Garcia Unavailable Cj Lazo MD Primary Care Provider [phone] Cj Lazo MD Primary Care Provider [phone] CJ LAZO Primary Care Physician [phone] MISC, DR PADRON Consulting Unavailable MISC, DR [...] Unavailable Cj Lazo MD Primary Care Provider [phone] Viral Smith Attending Unavaila della Lopez, Jessica Rojas Attending Unavailable SALAM, Petty Admitting Unavailable SALAM, Petty Attending Unavailable SALAM, Dove Referring Unavailable John, Jessica A Attending Unavailable John, Jessica A Attending Unavailable John, Jessica A Attending Unavailable MD Cj Lazo Primary Care Provider [phone] DO Ever Woodward Attending Provider Ever Woodward Attending Unavailable Cj Lazo Primary [...] Primary Care Provider Ever Woodward DO Unavailable [phone] Sirena BUCK, Deja Rojas Unavailable CJ LAZO [...] fentaNYL; Translations: [fentanyl] Drug Allergy 9 [facility] (20 sources) Midazolam; Translations: [midazolam] Drug Allergy 9 Boris [employer] Other (8 sources) mri contrast Propensity to adverse reactions 4 Unknown, Hives, Anaphylaxis [facility] (4 sources) gadobutrol Drug Allergy 9 Rash, Itchy Throat, Chills, Dry Mouth [facility] (7 sources) Contrast media; Translations: [contrast media (gadolinium-bas ed)] Drug allergy Rash, Cough [facility] (1 source) fentaNYL Drug Allergy [facility] Rep[facility] (1 source) Gadolinium Drug Allergy [facility] Rep[facility] (2 sources) Midazolam; Translations: [Versed] Drug Allergy [facility] Repository (18 sources) Gadolinium-Cont aining Contrast Media Drug Allergy 9 Anaphylaxis, Rash [facility] (4 sources) gadobutrol Drug Allergy 9 Rash, Itchy Throat, Chills, Dry Mouth [facility] (17 sources) Iodinated Contrast Media Allergy to substance 4 Comment:MRI dye, Anaphylaxis [facility] (2 sources) Gadolinium-Cont aining Contrast Medi Allergy to substance 4 Anaphylaxis [facility] (2 sources) Iodinated Diagnostic Agents Propensity to adverse reactions to drug 4 [facility] Medications Current Medications Medication Drug Class(es) Dates Sig (Normalized) Sig (Original) acetaminophen 325 mg / HYDROcodone bitartrate 5 mg oral tablet (7 sources) Opioid Agonist Start: 05-24-2024 HYDROcodone-acetam inophen ([place]) 5-325 MG tablet 1 tablet 05/24/2024 Active [...] TID, # 90 tab(s), Refills(s) 6, Pharmacy: [facility] 1155, 157, cm, 12/20/23 11:01:00 EDT, [...] 06-22-2024 CT ANGIO CARDIAC WITH CORONARY ARTERIES [facility] CT Report Name: MARIANNA RAMIREZ : 1975 [...] TYPE: Calcium score, Coronary CT Angiography SCANNER REMEDIAL MASSEUR: [employer] SCANNER MODEL: [employer] Alpha DOSE REDUCTION ALGORITHM: Helical with dose [...] RADIATION DOSE (more content not included)... Normal [facility] CT Report Name: MARIANNA RAMIREZ Christel : [...] TYPE: Calcium score, Coronary CT Angiography SCANNER REMEDIAL MASSEUR: [employer] SCANNER MODEL: [employer]EOTOM Alpha DOSE REDUCTION ALGORITHM: Helical with dose modulation SCAN COVERAGE ZONE: Coronary Arteries EKG GATED: Yes GENERAL -------- CONTRAST AGENT ------ CONTRAST AGENT USED? (more content not included)... CARDIOLOGY Jatinder Phipps MD - 06/22/2024 [facility] CT Report Name: MARIANNA RAMIREZ : 1975 [...] TYPE: Calcium score, Coronary CT Angiography SCANNER REMEDIAL MASSEUR: [employer] SCANNER MODEL: NAEOTOM Alpha DOSE REDUCTION [...] B-BLOCKERS, ORAL DOSE (more content not included)... [facility] Radiology Study observation (narrative) [facility] COVID CepheidOrdered By: Byron Kim on 05-24-2024 SARS-CoV-2 (COVID-19) Ab IA Ql Negative Negative [facility] Comment on above: This is a duplicate Cepheid Xpert Xpress CoV-2/Flu/RSV Plus RNA by RT-PCR result to be used for statistical tracking purpose only. SARS-CoV-2 (COVID-19) RNA AMY+probe Ql (Unsp spec) [facility] COVID-19 / Flu A/B / RSV [...] or Cepheid Disclaimer revoked sooner. PERFORMED BY: [place] [address] PATHOLOGIST BINDER LOCKSTITCH RUSS MAHAN M.D. Normal [facility] Comment on above: Performed By: #### C EPHEID NEG, COVID19 FLU RSV #### [address] Cepheid COVID PCR Negativeon 05-24-2024 SARS-CoV-2 (COVID-19) RNA AMY+probe Ql (Unsp spec) Negative Normal Negative [facility] Comment on above: Result Comment: This is a duplicate CepPrecision Therapeuticsid Xpert Xpress CoV-2/Flu/RSV Plus RNA by RT-PCR result to be used for statistical tracking purpose only. PERFORMED BY: [place] [address] PATHOLOGIST BINDER LOCKSTITCH RUSS MAHAN M.D. Performed By: #### C EPHEID NEG, COVID19 FLU RSV #### [address] HCG ( test) IA.rapi d Ql (U)Ordered By: Wayne Metcalf on 05-24-2024 HCG ( test) Ql (U) Negative [facility] HCG,Urineon 05-24-2024 Beta HCG ( test) Ql (U) Negative Normal [facility] Comment on above: Result Comment: PERF ORMED BY: [place] [address] PATHOLOGIST BINDER LOCKSTITCH RUSS MAHAN M.D. Performed By: #### U HCG #### [address] Jasvir 05-24-2024 L Specimen: [id number] Received: 05/24/24 Status: LYNN Nathan Num: [id number] Spec Type: Surgical Subm Dr: Ever Woodward DO Tissues: A THYROID - Lobe (L THYROID AND ISTHMUS) B THYROID - Lobe (L POST CAPSUL) Procedures: HE/17, Gross/Micro L5/2, FS HE/2 Age/ Patient Sex Location Account Attending Physician Marianna Ramirez 49/F [place] [id number] Ever Woodward DO SPEC NUM: [id number] RECD: 05/24/24 STATUS: LYNN ISABEL NUM: [id number] RADHA: 05/24/[address]: Ever Woodward DO ENTERED: 05/24/[address] [facility] [address]: SPEC TYPE: Surgical DEPT: S ENTERED BY: [id number] RECV BY: [id number] ORDERED: HE/17, Gross/Micro L5/2, FS HE/2 ORDERED: [...] Left lobectomy with isthmusectomy (hemithyroidectomy) TUMOR Specimen: [id number] Received: 05/24/24 Status: LYNN Isabel Num: [id number] Spec Type: Surgical Subm Dr: Ever Woodward DO Tissues: A THYROID - Lobe (L THYROID AND ISTHMUS) B THYROID - Lobe (L POST CAPSUL) Procedures: , Gross/Micro L5/2, FS HE/2 Patient: Marianna Ramirez [id number] (Continued) Specimen: [id number] Received: 05/24/24 (Continued) Pathological Diagnosis (Continued) Signed (signature on file) Samy Ascencio MD 05/29/24 1848 Specimen: [id number] Received: 05/24/24 Status: LYNN Isabel Num: [id number] Spec Type: Surgical Subm Dr: Ever Woodward DO Tissues: A THYROID - Lobe (L THYROID AND ISTHMUS) B THYROID - Lobe (L POST CAPSUL) Procedures: , Gross/Micro L5/2, FS HE Patient: Marianna Ramirez [id number] (Continued) Specimen: [id number] Received: 05/24/24-104 (Continued) Pathological Diagnosis (Continued) Tumor [...] Thyroid nodule, left thyroid and isthmus Specimen: [id number] Received: 05/24/24 Status: LYNN Isabel Num: [id number] Spec Type: Surgical Subm Dr: Ever Woodward DO Tissues: A THYROID - Lobe (L THYROID AND ISTHMUS) B THYROID - Lobe (L POST CAPSUL) Procedures: HE/17, Gross/Micro L5/2, FS HE/2 Patient: Marianna Ramirez [id number] (Continued) ------- (more content not included)... Normal [facility] Automated basophil %Ordered By: Ever Woodward on 05-17-2024 Basophils/100 WBC (Bld) 0.5 % Normal . [facility] Comment on above: Performed By: #### B MP, CBC #### [facility] [address] Automated basophil countOrde red By: Ever Woodward on 05-17-2024 Basophils (Bld) [#/Vol] 0.0 10*3/uL Normal 0.0-0.2 [facility] Comment on above: Result Comment: PERF ORMED BY: [facility] [address] [place] [address] PATHOLOGIST BINDER LOCKSTITCH RUSS MAHAN M.D. Performed By: #### B MP, CBC #### [address] Automated blood monocyte cou ntOrdered By: Ever Woodward on 05-17-2024 Monocytes (Bld) [#/Vol] 0.5 10*3/uL Normal 0.0-0.8 [facility] Comment on above: Performed By: #### B MP, CBC #### [address] Automated eosinophil %Ordere d By: Ever Woodward on 05-17-2024 Eosinophils/100 WBC (Bld) 1.2 % Normal . [facility] Comment on above: Performed By: #### B MP, CBC #### [address] Automated eosinophil countOr dered By: Ever Woodward on 05-17-2024 Eosinophils (Bld) [#/Vol] 0.1 10*3/uL Normal 0.0-0.45 [facility] Comment on above: Performed By: #### B MP, CBC #### [address] Automated monocyte %Ordered By: Ever Woodward on 05-17-2024 Monocytes/100 WBC (Bld) 7.7 % Normal . [facility] Comment on above: Performed By: #### B MP, CBC #### [address] Automated neutrophil %Ordere d By: Ever Woodward on 05-17-2024 Neutrophils/100 WBC (Bld) 74.3 % Normal . [facility] Comment on above: Performed By: #### B MP, CBC #### [address] Basic Metabolic Panelon 05-07 GFR/1.73 sq M.predicted MDRD (S/P/Bld) [Vol rate/Area] mL/min/{1.73_m2} Normal [facility] Comment on above: Performed By: #### B MP, CBC #### [facility] [address] [place] [id number] [facility] Basic metabolic 1998 panelon 05-17-2024 Anion gap [Moles/Vol] 10.3 mmol/L 6.0 - 15.0 NO [facility] Calcium [Mass/Vol] 9.4 mg/dL 8.6 - 10. 3 mg/dL [facility] Chloride [Moles/Vol] 104 mmol/L 98 - 10 7 mmol/L [facility] CO2 [Moles/Vol] 28.9 mmol/L 21.0 - 31.0 mmol/L [facility] Creatinine (U) [Mass/Vol] 0.74 mg/dL 0.60 - 1.20 mg/dL [facility] GFR/1.73 sq M.predicted MDRD (S/P/Bld) [Vol rate/Area] mL/min/{1.73_m2} [facility] Glucose [Mass/Vol] 105 mg/dL High 70 - 100 mg/dL [facility] Comment on above: Random Glucose Refer ence Range is dependent on time and content of last meal. Glucose of more than 200 mg/dL in a nonstressed, ambulatory subject supports the diagnosis of Diabetes Mellitus. ADA recommended reference range Interpretation and review of laboratory results Abnormal [facility] Potassium [Moles/Vol] 4.2 mmol/L 3.5 - 5.1 mmol/L [facility] Sodium [Moles/Vol] 139 mmol/L 136 - 145 mmol/L [facility] Urea nitrogen [Mass/Vol] 12 mg/dL 7 - 25 mg/dL [facility] CBC W Auto Differential pane l (Bld)on 05-17-2024 Basophils (Bld) [#/Vol] 0.0 10*3/uL 0.0 - 0.2 10*3/uL [facility] Basophils/100 WBC Manual cnt (Syn fld) 0.5 % . [facility] Eosinophils (Bld) [#/Vol] 0.1 10*3/uL 0.0 - 0.45 10*3/uL [facility] Eosinophils/100 WBC Manual cnt (Syn fld) 1.2 % . [facility] Erythrocyte distribution width (RBC) [Ratio] 12.6 % 11.9 - 15.3 % [facility] Hematocrit (Bld) [Volume fraction] 38.0 % 34.0 - 46.4 % [facility] Hemoglobin (Bld) [Mass/Vol] 13.3 g/dL 11.8 - 15.4 g/dL [facility] Lymphocytes (Bld) [#/Vol] 1.1 10*3/uL 1.00 - 4.8 10*3/uL [facility] Lymphocytes/100 WBC Manual cnt (Syn fld) 16.3 % . [facility] MCH (RBC) [Entitic mass] 31.0 pg 24.7 - 34.3 pg [facility] MCHC (RBC) [Mass/Vol] 35.0 g/dL 32.0 - 35.0 g/dL [facility] MCV (RBC) [Entitic vol] 88.4 fL 80 - 100 fL [facility] Monocytes (Bld) [#/Vol] 0.5 10*3/uL 0.0 - 0.8 10*3/uL [facility] Monocytes+Macrophages/1 00 WBC Manual cnt (Syn fld) 7.7 % . [facility] Neutrophils (Bld) [#/Vol] 4.9 10*3/uL 1.8 - 7.7 10*3/uL [facility] Neutrophils/100 WBC Manual cnt (Syn fld) 74.3 % . [facility] NRBC 0.1 /100{WBC} 0 - 0.5 /100{WBC} [facility] Platelet mean volume (Bld) [Entitic vol] 7.5 fL 6.3 - 10.7 fL [facility] Platelets (Bld) [#/Vol] 259 10*3/uL 150 - 450 10*3/uL [facility] RBC LM.HPF (Urine sed) [#/Area] 4.30 /[HPF] 3.60 - 5.00 [facility] WBC (Bld) [#/Vol] 6.6 10*3/uL 3.8 - 11.6 10*3/uL [facility] WBC LM.HPF (Urine sed) [#/Area] 6.6 10*3/uL 3.8 - 11.6 10*3/uL [facility] Calcium [Mass/volume] in Ser um or PlasmaOrdered By: Ever Woodward on 05-17-2024 Calcium [Mass/Vol] 9.4 mg/dL Normal 8.6-10.3 [facility] Comment on above: Result Comment: PERF ORMED BY: [place] [address] PATHOLOGIST BINDER LOCKSTITCH RUSS MAHAN M.D. Performed By: #### B MP, CBC #### [address] Carbon dioxide, total [Moles /volume] in Serum or PlasmaOrdered By: Ever Woodward on 05-17-2024 CO2 [Moles/Vol] 28.9 mmol/L Normal 21.0-31.0 [facility] Comment on above: Performed By: #### B MP, CBC #### [address] Chloride [Moles/volume] in S david or PlasmaOrdered By: Ever Woodward on 05-17-2024 Chloride [Moles/Vol] 104 mmol/L Normal 98-107 [facility] Comment on above: Performed By: #### B MP, CBC #### [address] Complete Blood Count Auto Di ffon 05-17-2024 Mean Corpuscular HGB Conc 35.0 g/dL Normal 32.0-35.0 [facility] Comment on above: Performed By: #### B MP, CBC #### [address] NRBC% 0.1 /100{WBC} Normal 0-0.5 [facility] Comment on above: Performed By: #### B MP, CBC #### [place] [address] [place] Creatinine [Mass/volume] in Serum or PlasmaOrdered By: Ever Woodward on 05-17-2024 Creatinine [Mass/Vol] 0.74 mg/dL Normal 0.60-1.20 [facility] Comment on above: Performed By: #### B MP, CBC #### [place] [address] [place] ECG 12 lead ECGon 05-17-2024 ECG 12 lead ECG [facility] [place] [address] [place] [address] Electrocardiograph Report Signed Patient: Marianna Ramirez MR#: [id number] : 1975 Acct:[id number] Age/Sex: 49 / F ADM Date: 05/17/24 Loc: Room: Type: [facility] Attending Dr: Ever [...] previous ECGs available Confirmed by Katlin Dean ([id number]) on 05/18/2024 12:40:53 AM Referred By: Electronically Signed By: Katlin Dean Transcribed By: MUS Signed By Katlin Dean MD 4 0040 Normal [facility] Erythrocyte distribution wid th [Ratio] by Automated countOrdered By: Ever Woodward on 05-17-2024 Erythrocyte distribution width (RBC) [Ratio] 12.6 % Normal 11.9-15.3 [facility] Comment on above: Performed By: #### B MP, CBC #### [facility] [address] [place] [address] [place] Erythrocytes [#/volume] in B lood by Automated countOrdered By: Ever Woodward on 05-17-2024 RBC (Bld) [#/Vol] 4.30 10*6/uL Normal 3.60-5.00 [facility] Comment on above: Performed By: #### B MP, CBC #### [facility] [address] [place] [address] [place] Glucose [Mass/volume] in Ser um or PlasmaOrdered By: Ever Woodward on 05-17-2024 Glucose [Mass/Vol] 105 mg/dL High 70-100 [facility] Comment on above: ADA recommended refe rence rangeRandom Glucose Reference Range is dependent on time and content of last meal. Glucose of more than 200 mg/dL in a nonstressed, ambulatory subject supports the diagnosis of Diabetes Mellitus. Result Comment: [place] om Glucose Reference Range is dependent on time and content of last meal. Glucose of more than 200 mg/dL in a nonstressed, ambulatory subject supports the diagnosis of Diabetes Mellitus. ADA recommended reference range Performed By: #### B MP, CBC #### [address] Hematocrit [Volume Fraction] of Blood by Automated countOrdered By: Ever Woodward on 05-17-2024 Hematocrit (Bld) [Volume fraction] 38.0 % Normal 34.0-46.4 [facility] Comment on above: Performed By: #### B DEIDRA, CBC #### [address] Hemoglobin [Mass/volume] in BloodOrdered By: Ever Woodward on 05-17-2024 Hemoglobin (Bld) [Mass/Vol] 13.3 g/dL Normal 11.8-15.4 [facility] Comment on above: Performed By: #### B DEIDRA, CBC #### [address] Leukocytes [#/volume] correc lvadimir for nucleated erythrocytes in Blood by Automated counOrdered By: Ever Woodward on 05-17-2024 WBC corrected for nucl RBC Auto (Bld) [#/Vol] 6.6 10*3/uL 3.8-11.6 [facility] Leukocytes [#/volume] in Blo od by Automated countOrdered By: Ever Woodward on 05-17-2024 WBC (Bld) [#/Vol] 6.6 10*3/uL Normal 3.8-11.6 [facility] Comment on above: Performed By: #### B DEIDRA, CBC #### [place] [address] [place] Lymphocytes [#/volume] in Bl ood by Automated countOrdered By: Ever Woodward on 05-17-2024 Lymphocytes (Bld) [#/Vol] 1.1 10*3/uL Normal 1.00-4.8 [facility] Comment on above: Performed By: #### B MP, CBC #### [address] Lymphocytes/100 leukocytes i n Blood by Automated countOrdered By: Ever Woodward on 05-17-2024 Lymphocytes/100 WBC (Bld) 16.3 % Normal . [facility] Comment on above: Performed By: #### B MP, CBC #### [address] MCH [Entitic mass] by Automa vladimir countOrdered By: Ever Woodward on 05-17-2024 MCH (RBC) [Entitic mass] 31.0 pg Normal 24.7-34.3 [facility] Comment on above: Performed By: #### B MP, CBC #### [address] MCHC Auto (RBC) [Mass/Vol]Or dered By: Ever Woodward on 05-17-2024 MCHC (RBC) [Mass/Vol] 35.0 g/dL 32.0-35.0 [facility] MCV [Entitic volume] by Auto mated countOrdered By: Ever Woodward on 05-17-2024 MCV (RBC) [Entitic vol] 88.4 fL Normal 80-100 [facility] Comment on above: Performed By: #### B DEIDRA, CBC #### [address] Neutrophils [#/volume] in Bl ood by Automated countOrdered By: Ever Woodward on 05-17-2024 Neutrophils (Bld) [#/Vol] 4.9 10*3/uL Normal 1.8-7.7 [facility] Comment on above: Performed By: #### B MP, CBC #### [address] No Panel InformationOrdered By: Ever Woodward on 05-17-2024 Estimated GFR (CKD-EPI) > 60.0 mL/Min [facility] Creatinine Clearance (Chem N/A [facility] Nucleated erythrocytes [Pres ence] in Blood by Automated countOrdered By: Ever Woodward on 05-17-2024 Nucleated RBC Auto Ql (Bld) 0.1 /100{WBC} 0-0.5 [facility] Platelet mean volume [Entiti c volume] in Blood by Automated countOrdered By: Ever Woodward on 05-17-2024 Platelet mean volume (Bld) [Entitic vol] 7.5 fL Normal 6.3-10.7 [facility] Comment on above: Performed By: #### B MP, CBC #### [facility] [address] [place] [address] [place] Platelets [#/volume] in Bloo d by Automated countOrdered By: Ever Woodward on 05-17-2024 Platelets (Bld) [#/Vol] 259 10*3/uL Normal 150-450 [facility] Comment on above: Performed By: #### B MP, CBC #### [facility] [address] [place] [address] [place] Potassium [Moles/volume] in Serum or PlasmaOrdered By: Ever Woodward on 05-17-2024 Potassium [Moles/Vol] 4.2 mmol/L Normal 3.5-5.1 [facility] Comment on above: Performed By: #### B MP, CBC #### [facility] [address] [place] [address] Serum or plasma anion gap de terminationOrdered By: Ever Woodward on 05-17-2024 Anion gap [Moles/Vol] 10.3 mmol/L Normal 6.0-15.0 [facility] Comment on above: Performed By: #### B MP, CBC #### [facility] [address] [place] [address] [place] Sodium [Moles/volume] in Ser um or PlasmaOrdered By: Ever Woodward on 05-17-2024 Sodium [Moles/Vol] 139 mmol/L Normal 136-145 [facility] Comment on above: Performed By: #### B MP, CBC #### [facility] [address] [place] [id number] [facility] Urea nitrogen [Mass/volume] in Serum or PlasmaOrdered By: Ever Woodward on 05-17-2024 Urea nitrogen [Mass/Vol] 12 mg/dL Normal 7-25 [facility] Comment on above: Performed By: #### B MP, CBC #### [facility] [address] [place] [id number] [facility] Gastroenterology Office/Clin ic Noteon 12-20-2023 Gastroenterology Office/Clinic [...] cm, empiric esophageal dilation performed using 58 Syrian Foster dilator 2. Normal gastric mucosa, random [...] had negative impedance test in 2019 in [place] per her report Suspect hypersensitivity 3. Nausea [...] Garcia, GAIL, MED Within 3 months [address], [address] [phone] Additional Instructions: Problem Lis (more content not included)... Normal [facility] Comment on above: Result Comment: Elec tronically Signed By: Luis CLINE, Viral Garcia\.br\Date and Time Signed: 12/20/23 11:57 EDT\.br\Electronically Co-Signed By: Kathleen Pinon MA\.br\Date and Time Co-Signed: 12/20/23 11:55 EDT Beth 10-29-2023 CNPN Telephone (NECVS8) MARIANNA RAMIREZ ([id number]) 1975 F Date Time Provider Department 2/23/24 ALICIA BOLIVAR NECVS8 During your visit today, we recorded the following information about you: Rina Lord 10/29/2023 4:48 PM Signed CV PHONE Name of caller : Avis Relationship to patient : [facility] If not self Will need patient permission to release results or disclose health information with called documented in fyi. Patient identified by Name and Date of . ( Marianna Ashley, 1975). Yes Number to return call [phone] Reason for Call: Avis is calling from [facility] to obtain notes and information for prior Auth of MRI WO IVCON. Sent: Thank you calling [facility]. You will receive a return call within [...] 2:24 PM Signed Received faxes from [facility] with results Jatinder Valle RN 11/15/2023 9:55 AM Signed Returned fax with cover letter stating below: Thank you for the MRI report, please push images electronically to [facility] for further review by Dr. Bolivar's office. Thanks! Jatinder Valle RN [phone], option [phone] Allergies As of Date: 10/29/2023 [...] Encounter Status:Closed by RINA LORD on 10/29/23 [facility] 10-25-2023 [facility] Telephone (NECVS8) MARIANNA RAMIREZ ([id number]) 1975 F Date Time Provider Department 10/25/23 [...] Ramirez, 1975). Yes Number to return call [phone] Reason for Call: Symptoms Call: Symptoms: headache [...] something else going on. Thank you calling [facility] [place]. You will receive a return call within [...] per via [employer] on Wednesday10/26/2023 tracking # [id number] Allergies As of Date: 10/25/2023 Noted Allergy Reaction GADOLINIUM-CONTAININ G CONTRAST ME*04/14/2023 10 - Anaphylaxis Comments: Throat closing and coughing post MRI with MINI even with premed Date Reviewed: 06/21/2018 Reviewed by: Charles Gutierrez ([employer]), AOC DIRECTOR INTELLIGENCE OFFICER - Fully Assessed Reason for Visit: Symptoms [...] Encounter Status:Closed by CARMITA GIRALDO on 10/25/23 [facility] Ambulatory Visit Summaryon 0 05-04-2023 Ambulatory [...] any. Fruits (more content not included)... Normal [facility] Gastroenterology Office/Clin ic Noteon 05-04-2023 [...] Previous labs (more content not included)... Normal [facility] Comment on above: Result Comment: [...] grapefruit, pineapple, and jeff. Vegetables Deep-fried vegetables. Syrian fries. Any vegetables prepared with added fat. [...] reflux di (more content not included)... Normal [facility] MARIANNA RAMIREZ ([id number]) 1975 F Date Time Provider Department 04/12/23 [...] Ramirez, 1975). Yes Number to return call [phone] Reason for Call: Patient Question/Update: Marianna is calling to say she developed an allergy to contrast and cannot have MRI W/WO. Also she would like to know if she can have it done locally. Please call. Thank you calling [facility] [place]. You will receive a return call within [...] Status:Closed by JATINDER VALLE on 04/14/23 Normal [facility] Provider Letteron 01-28-2023 Provider Letter January 28, 2023 MARIANNA RAMIREZ [address] [place] [id number] : 1975 Dear Marianna , We have been trying to reach you with no success. It is important that you return our call regarding your ultrasound results upon receiving this letter. Also, at the time of your call, please provide us with your current information. Thank you for your prompt attention to this matter. Sincerely, [facility] [phone] Normal [facility] RAD - Ultrasound Reporton RAD - Ultrasound Report [id number] #1.00CD:127 Normal [facility] Gastroenterology Office/Clin ic Noteon 01-13-2023 [...] changes, gastric (more content not included)... Normal [facility] Comment on above: Result Comment: [...] these instructions at home: Medicines ? Take rhoo-nwa-hoycdha and prescription medicines only as told by your health care provider. ? If you were prescribed an antibiotic medicine, take it as told by your health care provider. Do not stop taking the antibiotic even if you start to feel better. Eating and drinking ? Make any diet changes as told by your health care provider. ? Work with a diet and nutritional services cook (dietitian) to create an eating plan that [...] person's throa (more content not included)... Normal [facility] Lab Reportson 01-12-2023 Lab Reports [id number] #1.00CD:127 Normal [facility] Lab Reportson 01-07-2023 Lab Reports [id number]# 1.00CD:127 Normal [facility] IntraOperative Documentson 0 01-01-2023 IntraOperative Documents [id number]#1.00CD:127 [facility] Postoperative Documentson Postoperative Documents [id number]#1.00CD:127 Normal [facility] Coding Summary.on 12-30-2022 Coding Summary. CD:[id number] Ww+PGhlYWQ+KP4PRRKaJ 19tyBJzzP7fM5HVURyVP ywgQVBQTElOSyIgbmFtZ C2atSGbQDKm IC8+RQ0fEUHbYbbdcTIs p8C3zEI1B09cwi1yEMjs cRW6FTJnQlWoyezja2bn iUs3IUovDovlCmVq BLNdhG35RTN1mU87Ki38 wJNvjYAhd6bhiLw9XfFl KQWiVMB7aUeqKUyse7Ez EETgA94bbOBnl0D8 IGNvbGxhcHNlOyBlbXB0 wT7qVUvlejtqc3dyigwp Rdq5lk25vJFuj4G1gAT2 H4ZbftI2COMblFIa NebsfJCLyD5gqquqh9xu hjajRzUdFKLpJQs7JPv0 MVMgfSlbZhHcPP77HLT3 YZOgwuGvV3XpLFSj eMejAkI2f3I0Nu0WX7SP XyrzA0KXUWLHTZvctSL+ IO93pu46W2AwMbawRfe9 NWSkTFA5qYD9aE6f AYDzDOjvg3H2jBM6P6Kh rpJxua0so4qgRMTnYSsa L12seUSyx1Q2XGZqrPE8 AYKznAidXtZvdC43 Oyc+HOBzsCwoh1LbHnhb n8uxy2qlrXv1OekqFRVt zvKgyUrkXMU1n7KySu7k PURmmHB7gTB0vV5f SnVxSvH7FUrrV865EjRn gGBnHndrW66sD5DfoGD+ QRVbCul0NPCwwMhoIE3f F4GbHMYtnayxwEEi sItjRI6nSGThixagKHXp iR8kINDbQ6a9EvSnCeB6 SChnD8DrIXWfukieOr18 vQ2nVfKwLdB6GWjo T1TlulU9CVSfmPFqTDau ZED3F31me0N5YEFvQCAr PPM8wWR2rJ0reZqyqgyu bGVmdDsgdmVydGlj HPvkDKycU323PIMcxNpo PkNvZGluZyBEYXRlOiAg MDQvMjYvMjAyMzwvdGQ+ ZDHeHXL0xUzuOLTi qGDpTFlfKx6pwQhziYgf UC7gJVFhpxwjKSEydD3j GGNifETslMghRS9aSQUx asrnd022XqKnAXK9 LKBynPKlS1HjgA5pZeYu BXIlTUIvY0EeuKBxBRis N679IPbiFkZ9GBLbfuMl V8LaUFBdaGglWiH6 y4E1Bw4Hp3KmrfjeA9Bz uMLpLvNxVkubBVm3W7Re PjwvdHI+LR01QPRcOQ41 QVg9CDI9zVcaUTxp IHRtO3XxmU0oYvFeTMXe ZGRkOyc+PHRhYmxlIHdp ZHRoPScxMDAlJyBzdHls CG1sCy9gCGTtLZXb iLkjkYFyIbUsc6thLZLv GZtgMQ4rdMgwP3DckFI0 OSOuh5n4Hy86X57bZ4Ss dXA+JRPruQQ6yWM3 nG6bHuCdLdB6WCypD554 JoPeyFDaCslsn4kyu5xt dMm5SkW6SDTpuqYlcJsw XQJ3z1JvLn08L20x IHdpZHRoPSIxNSUiIHZh dPqcuz5htJ6iCy3+PGNv mZL7iRV7tO3lAzApGrM9 BEucE853SsWuxZEv Zwvlc3xwj3ugmBj8QbTq ZBJazvGxdKxfPOQ6m3Vg Mt66V4YgsKvud5BjOsh6 mf25zWCho2M3jUU5 A4RyPVVqqsrkmTJooBct PV1wMDDouigtXYNjbN6d YZUlA5e1DpHiGtC4ZHvk O1OcrjX3WSLzgQCt JPOxyZPZrK5izssoe2mp fhtyKqWdCBNfKDj1TCi8 JPChvZjrLnBlWVA3KsZ2 IXO2cVUgiV2vhCea cmveuA2oNge+BIN5uIEp vSTYOJ0qKvgukJD+PHRk ZWA0wKcsMRnuIJNogO6i JLIdN9k9OeEcLwJ0 EXkzA9BeubO8SGEguVIk YYXfsGJMpB3gwrnxh4zf gafnTpAcLKYfQEm0VZz7 LWFsaWduOiBsZWZ0 AjQ8XOS3tAEbkW1mbQky dcrkzG1dMqt+QmlydGgg WJP8NKh0E2RlZpg0ELLe tVaxZX7hkEHoBRgj By3exZwxmJylVU1gCGMk wdisz628PaOkh0biBHLc xXYfXPjiJBT9W10xk2Y6 ZYChMYVaZXU4hSX0 rW0eeTghuwkqnXOqqFun vvYpjOwaTWoeOZesC596 GRNtuTeuYmAdKPu8W1Ll Aku8MZIhqSwuHS4f yZMqMKlgZo2clEpmxWnc AL7lAMLntbint752KnDz l0haUQLigQNtTXphFMK9 Q55lp8H5ZLMtOQWy PQC7rVX9nS0quAxyhzhp bGVmdDsgdmVydGljYWwt CYkbB760HCEedAdyPoPq oOj2L0DsEas4JHTa zVcrSG7obSZlLEfqFb2b vIdlmWqqHX5oMAQhzxuj z853RuTpy9raHGYiiJMd VGfjZGC6S49mf5E6 HAEmOUByRSC5bOM1mG2h bGlnbjogbGVmdDsgdmVy uTbzKBmgUSzpM271DNYb cDsnPlBhdGllbnQg MWjpQQp0N4SnGboeeBA+ SF79DIHuCT02sJAyzZNs q8ymqZn0MyAcAONnIOM0 gFfuFXuhf9JhGGEr E80kgCKsa6X0LGAzaDbf iTBeOkBgoIZ5eT4wKCdc mrfpl9rpqhjzLvimf5xu wk49jH57B24uOBph ZHRoPSIzMCUiIHZhbGln px9iqR5tNt8+PGNvbCB3 bCH7kC9gKGBgEqM3XVeh I833XuUxpJOpHtpi a0pjw5ennFf2YpO7OXRe qkKkqOixHEO0y5WlFf49 W18eDCsyRZQoZIDiGGLn LJHfkQstlu1ceV7v Ii8+HERrxPN7hNT5gQ6g OfPlZvB6TCmjY612NqYs kXJnLvfiN63fO9SriOY+ DROdUjp6UGYovPco QN7zpCHwKAzePj4mTMK6 SjPnDzKqWIdoG9JbEDHa hrfxujbzcQV1SMVkGDJn bV89Tm4drRrfMTSi uVSDvF2lefxbe2dmebrs XhTqHARzLXl9UKv7TJIl hUffEnYnUFB0ZzY2CGX5 wDGlyC2hzGqpzrwb vE3yS4NiJXHgtmecOy39 pE0oXnRvYvB1IYroLiz+ BNOCCbMYJDzmZKaMD5ZF ME87SA06yYZia7O7 yNG3M2XjUWHlhxmwupod sAK1GXRfKSZlcW24pKSc QOfnYh2fq6M6i423TMJv FCQpvV60Iq8icNjx QRVmwPUQlD7bmimco0ap bqvbUzNyOXSwWVr2JDe6 RMGblWclJnOdVRG4FeM4 XJJ3jWOfyS0qdVyx ghytcJ5jCvg+MDkvMDMv LAn9MLnxbGK+PHRkIHN0 oDurCOjaLSNylK9gINPx X9t1OmGpHrR1PHdp V9UfDUIafenfUj87rF7o UrZrEoR3BMbxV3WannC1 UWDtrHLaQHrnPXD1D02a t2M5YASoVBEeJVN3 eLB4pG2hjEriwtdynAIb dDsgdmVydGljYWwtYWxp F479TPKkhMnaZiK5NJah BVYoDE61FJ86bNQf v5X1oQW1C4PuLARatrqn khgqyZL3MIIrEEVljS87 jBKnYJcuSa0kq6J8a030 SEGtLEQasU04Ae5f xZfiAXWuiSKHxM0gknvh g8poonmwEzKbTSBhDTm3 CVd9QTHpyCbuKzDkMQW6 MwU9PGN8lWEkfI8f aWdiyiuyzQ4aWom+RmVt STogCZ59IU84bIEhq3T9 mUW9L1MuHMKhowvnhsyu mZX6KCWuTWRblJ99 rNUpQIgzGm3hc4O3m920 CHOmNWMyeM64Wp2yaQcr IBIxvOBKbI9kcvypv8nj cjogIzAwMDAwMDt0 JSx9NCGooKccBfUeRLG3 VhX0TBB9hMEktV2hgWql jxgjgN7zOjg+O6B6sBQ6 aWVudDwvdGQ+PC90 xr36Z4RmTictQos7TPGs VMU0oJL9cB6hWAPlOQjm d2C2lWT0D3YmosFkvy3t b5vlLMLhDWumT93v oSIgo5H4XUPpdAV7RCYo mTyaYqMgkC59Swd+PGNv uExdd2AsWjnkh5deu6zz yEm9DyCxGNYzqsBd aYanDXT9p8ZsEa84O76y IHdpZHRoPSIzMCUiIHZh mQttqq7wbK0sHc9+PGNv rUL6lFX4eS3gOvWq TpP8TVgcN184JqOfkLAn Hhxsi3nal8vxrZz7OtMw BSLzjyVimJwyPWH9n8Us Ff30U4ZzrXnlj2Ni Gph8ns05zTCve7I2jME1 U5NkWJVwameqdIMgoPbn XC0vUKEmnjcqMQXdxJ8n MIPsP0f6HfFxKfK3 MWufD8YbxbQ3NHIgiEIe VTLltPXAmL7wknwwg7rw uajlHcZjBGHwTEp7TXl6 LWFsaWduOiBsZWZ0 TvG5TZL5bGZakD3vtIjn wjrzxR6rObo+MNr4z4lh aJFoZY9beEE1LB53OS76 qUJey9F1jEU1J1Ij DJLziuxutgcdvSR5XCAz GAStoK09Kl5wxCunUo8h ZHSgTDD2IAZlgCTlA9Hw cG1fAtQkJRVxKRHq O7JliRMqZUkvM381OPxc TvI9YGMsltLlI1ZmTHMt lWklXwS9v9E9Lh2MNI06 QS33PW55gJIww3R9 lCK7G5SuBGIvbqypgkvq hZB9CGGvPLOhbB78Go5m qBmbRn9kQBFwHLR8DDBk vSNeX5ZzdO4uDdGl DOFnXPRkR7PraQFcMTtw X367NSxnOmA3AYSmaoEg O5IaKFNagHtmGgA1u5H7 Qw9NYq46KC76AP37 lAMqi8B6kPF1I6ZzZDTc gytpmddhxQJ6AEObWXYr yG44Sn6ubSnrSz0cQUUd XYP9NMNuwAJeE7Ms fE7rUzAhBIFlIQHwC8Ca gXZyOTbhB121ZZnkWwE2 HPPuhoTvG5LnTXEhzCvm BpG1g6K2Uj3ZJKtv pco6R5FsMzbszSB+PC90 ENRgJI75sPRggOBvp4ap eQg6FgCrWQScCNG0aTbu WXsen5PwNTWpT09y iHMwe5T2 (more content not included)... Normal [facility] Consenton 12-30-2022 Consent [id number] 6#1.00CD:127 Normal [facility] Discharge Instructionson Discharge Instructions [id number] 5#1.00CD:127 [facility] OVA AND PARASITE EXAMINATION on 12-30-2022 Ova + Parasite Exam Final report Normal [facility] Comment on above: Result Comment: Thes e results were obtained using wet preparation(s) and trichrome stained smear. This test does not include testing for Cryptosporidium parvum, Cyclospora, or Microsporidia. Performed By: #### C BC #### [facility] [address] [place] [address] Dr. Belkis Ascencio Result 1 Comment Normal [facility] Comment on above: Result Comment: No o va, cysts, or parasites seen. . One negative specimen does not rule out the possibility of a parasitic infection. Performed By: #### C BC #### [facility] [address] [place] [address] [id number] [address] Belkis Ascencio Main OR Intraoperative Recor don 12-29-2022 Main OR Intraoperative Record IntraOp Document Type FT Summary Primary Physician: Petty AMBROSE MD Finalized Date/Time: 12/29/22 13:14:21 Pt. Name: MARIANNA RAMIREZ /Sex: 1975 Female Med Rec #: [id number] Physician: Petty AMBROSE MD Financial #: [id number] Pt. Type: O Room/Bed: / Admit/Disch: 12/28/22 [...] Guy CLINE, Frank Colon RN, Kalpesh Urrutia STAIN WIPER, Parvin Kearney Role Performed Anesthesiologist of [place] Operator - Primary Scrub - Primary Record [...] Arm P (more content not included)... Normal [facility] Consent for Treatmenton 12-06 Consent for Treatment [id number] #1.00CD:127 Normal [facility] Endoscopic Procedure Report - Otheron [...] cm, empiric esophageal dilation performed using 58 Syrian Foster dilator 2. Normal gastric mucosa, random [...] cm, empiric esophageal dilation performed using 58 Syrian Foster dilator 2. Normal gastric mucosa, random biopsies obtained from antrum, incisura, gastric body and fundus 3. Normal duodenum Recommendations: 1. Awaiting pathology report. 2. GI clinic follow-up in 2 weeks [facility] Comment on above: Result Comment: Elec tronically Signed By: MONSERRAT CLINE, Petty\.br\Date and Time Signed: 12/28/22 10:38 EDT Other Comment: Chaparrita howard Attachment - attachment storage system not supported [id number] Can be viewed in source systemMissing Attachment - attachment storage system not supported [id number] Can be viewed in source systemMissing Attachment - attachment storage system not supported [id number] Can be viewed in source systemMissing Attachment - attachment storage system not supported [id number] Can be viewed in source systemMissing Attachment - attachment storage system not supported [id number] Can be viewed in source systemMissing Attachment - attachment storage system not supported [id number] Can be viewed in source system Main OR PACU I Recordon 12-06 Main OR PACU I Record PACU Phase I Document Type FT Summary Primary Physician: Petty AMBROSE MD Finalized Date/Time: 12/28/22 11:26:29 Pt. Name: ASHLEYMARIANNA/Sex: 1975 Female Med Rec #: [id number] Physician: Petty AMBROSE MD Financial #: [id number] Pt. Type: O Room/Bed: / Admit/Disch: 12/28/22 [...] By: Deja Ken RN 12/28/22 11:26 Normal [facility] Main OR Preoperative Recordo n 12-28-2022 Main OR Preoperative Record Holding Area Document Type FT Summary Primary Physician: Petty AMBROSE MD Finalized Date/Time: 12/28/22 10:00:59 Pt. Name: MARIANNA RAMIREZ/Sex: 1975 Female Med Rec #: [id number] Physician: Petty AMBROSE MD Financial #: [id number] Pt. Type: O Room/Bed: / Admit/Disch: 12/28/22 [...] By: Tess Cummins RN 12/28/22 10:00 Normal [facility] Monitor Recordon 12-28-2022 Monitor Record [id number] 8#1.00CD:127 [facility] Monitor Record [id number]#1.00CD:127 [facility] Progress Note-Physicianon Progress Note-Physician Patient: MARIANNA RAMIREZ Age: 47 years Sex: Female : 1975 Associated Diagnoses: None Author: Guy CLINE, Frank Peralta Postoperative Information Postoperative disposition Optimetrix number: Optimetrix number [id number]. Anesthetic utilized: General. Physical Examination Vital Signs [...] meets criteria ( To home ). [facility] Comment on above: Result Comment: Elec [...] All Problems Abdominal cramping / SNOMED CT 882668534 / Confirmed Acid reflux / SNOMED CT 771631275 / Confirmed Diarrhea / SNOMED CT 334981086 / Confirmed Dysphagia / SNOMED CT 71001034 / Confirmed RUQ pain / SNOMED CT 734171529 / Confirmed, Active Problems (5) Abdominal cramping [...] in all extremities. Gastrointestinal: Soft, Non-tender. Plan [place] [employer] (ASA) physical status classification: Class II. Anesthetic Preoperative Plan: Anesthesia General. [facility] Comment on above: Result Comment: Elec tronically Signed By: Guy CLINE, Frank Keenan.br\Date and Time Signed: 12/28/22 17:55 EDT Lab Reportson 12-24-2022 Lab Reports [id number] #1.00CD:127 [facility] Lab Reportson 12-23-2022 Lab Reports [id number] #1.00CD:127 [facility] Consent for Procedure/Surger yon 12-22-2022 Consent for Procedure/Surgery [id number] #1.00CD:127 [facility] GI PANEL (PCR)on 12-22-2022 Adenovirus F 40/41 Not detected Normal NOT DETECTED [facility] Comment on above: Performed By: #### C BC #### [facility] [address] [place] [address] Dr. Belkis Ascencio Astrovirus Not detected Normal NOT DETECTED [facility] Comment on above: Performed By: #### C BC #### [facility] [address] [place] [address] Dr. Belkis Ascencio C. Diff toxin A/B Not detected Normal NOT DETECTED [facility] Comment on above: Performed By: #### C BC #### [facility] [address] [place] [address] Dr. Belkis Ascencio Campylobacter Not detected Normal NOT DETECTED [facility] Comment on above: Performed By: #### C BC #### [facility] [address] [place] [address] Dr. Belkis Ascencio Cryptosporidium Not detected Normal NOT DETECTED [facility] Comment on above: Performed By: #### C BC #### [facility] [address] [place] [address] Dr. Belkis Ascencio Cyclos. Cayetanensis Not detected Normal NOT DETECTED [facility] Comment on above: Performed By: #### C BC #### [facility] [address] [place] [address] Dr. Belkis Ascencio E. Coli O157 Not Applicable Normal Not Applicable [facility] Comment on above: Performed By: #### C BC #### [facility] [address] [place] [address] Dr. Belkis Ascencio E. histolytica Not detected Normal NOT DETECTED [facility] Comment on above: Performed By: #### C BC #### [facility] [address] [place] [address] Dr. Belkis Ascencio EAEC Not detected Normal NOT DETECTED [facility] Comment on above: Performed By: #### C BC #### [facility] [address] [place] [address] Dr. Belkis Ascencio EIEC Not detected Normal NOT DETECTED [facility] Comment on above: Performed By: #### C BC #### [facility] [address] [address] [address] Belkis Ascencio EPEC Not detected Normal NOT DETECTED [facility] Comment on above: Performed By: #### C BC #### [facility] [address] [place] [address] Dr. Belkis Ascencio ETEC Not detected Normal NOT DETECTED [facility] Comment on above: Performed By: #### C BC #### [facility] [address] [address] [address] Belkis Petersonlitra Not detected Normal NOT DETECTED [facility] Comment on above: Performed By: #### C BC #### [facility] [address] [place] [address] Dr. Belkis ARRIAZA CONTROLS PASSED Normal [facility] Comment on above: Performed By: #### C BC #### [facility] [address] [place] [address] Dr. Belkis SAMUELS HEADER GI PANEL BACTERIA Normal [facility] Comment on above: Performed By: #### C BC #### [facility] [address] [place] [address] Dr. Belkis WU ECOLI GI PANEL DIARRHEAGENIC E.COLI / SHIGELLA Normal [facility] Comment on above: Performed By: #### C BC #### [facility] [address] [place] [address] Dr. Belkis WU INFO SEE BELOW Normal [facility] Comment on above: Result Comment: EAEC - Enteroaggregative E. Coli EPEC- Enteropathogenic E. Coli ETEC- Enterotoxigenic E. Coli lt/st STEC- Shigella-like toxin-producing E. Coli stx1/stx2 EIEC- Shigella/Enteroinvasive E. Coli Performed By: #### C BC #### [facility] [address] [place] [address] Dr. Belkis WU PARASITES GI PANEL PARASITES Normal [facility] Comment on above: Performed By: #### C BC #### [facility] [address] [place] [address] Dr. Belkis MARQUESNLHD VIRUS GI PANEL VIRUSES Normal [facility] Comment on above: Performed By: #### C BC #### [facility] [address] [place] [address] Dr. Belkis Ascencio Norovirus GI/GII Not detected Normal NOT DETECTED [facility] Comment on above: Performed By: #### C BC #### [facility] [address] [place] [address] Dr. Belkis Ascencio P. Shigelloides Not detected Normal NOT DETECTED [facility] Comment on above: Performed By: #### C BC #### [facility] [address] [place] [address] Dr. Belkis Ascencio Rotavirus A Not detected Normal NOT DETECTED [facility] Comment on above: Performed By: #### C BC #### [facility] [address] [place] [address] Dr. Belkis Ascencio Salmonella Not detected Normal NOT DETECTED [facility] Comment on above: Performed By: #### C BC #### [facility] [address] [place] [address] Dr. Belkis Ascencio Sapovirus Not detected Normal NOT DETECTED [facility] Comment on above: Performed By: #### C BC #### [facility] [address] [place] [address] Dr. Belkis Ascencio STEC Not detected Normal NOT DETECTED [facility] Comment on above: Performed By: #### C BC #### [facility] [address] [place] [address] Dr. Belkis Ascencio Vibrio Not detected Normal NOT DETECTED [facility] Comment on above: Performed By: #### C BC #### [facility] [address] [place] [address] Dr. Belkis Ascencio Vibrio Cholera Not detected Normal NOT DETECTED [facility] Comment on above: Performed By: #### C BC #### [facility] [address] [place] [address] Dr. Belkis Ascencio Y. Enterocolitica Not detected Normal NOT DETECTED [facility] Comment on above: Performed By: #### C BC #### [facility] [address] [address] [address] Belkis Ascencio RAD - Ultrasound Reporton RAD - Ultrasound Report [id number] #1.00CD:127 Normal [facility] US SINGLE QUAD RT UPPERon US [...] GABRIELA CONKLIN Date: 2022-12-22 12:18 Normal [facility] Ambulatory Visit Summaryon 0 12-21-2022 Ambulatory Visit [...] serving. ? Talk with a diet and nutritional services cook (dietitian) if you have questions about specific [...] Avocado. Pr (more content not included)... Normal [facility] CBC AUTO DIFFon 12-21-2022 BASO # 0.0 103/ul Normal 0.0-0.1 [facility] Comment on above: Performed By: #### C BC #### [facility] [address] [place], [place] [address] Dr. Belkis Ascencio Basophils/100 WBC (Bld) 0.2 % Normal 0.2-2.0 [facility] Comment on above: Performed By: #### C BC #### [facility] [address] [place], [place] [address] Dr. Belkis Ascencio EO # 0.1 103/ul Normal 0.0-0.7 [facility] Comment on above: Performed By: #### C BC #### [facility] [address] [place] [address] Dr. Belkis Ascencio Eosinophils/100 WBC (Bld) 0.8 % Critically low 0.9-7.0 [facility] Comment on above: Performed By: #### C BC #### [facility] [address] [place] [address] Dr. Belkis Ascencio Erythrocyte distribution width (RBC) [Ratio] 11.8 % Normal 11.0-15.0 [facility] Comment on above: Performed By: #### C BC #### [facility] [address] [place] [address] Dr. Belkis Ascencio Hematocrit (Bld) [Volume fraction] 38.2 % Normal 36.0-48.0 [facility] Comment on above: Performed By: #### C BC #### [facility] [address] [place] [address] Dr. Belkis Ascencio Hemoglobin (Bld) [Mass/Vol] 13.2 g/dL Normal 12.0-16.0 [facility] Comment on above: Performed By: #### C BC #### [facility] [address] [place] [address] Dr. Belkis Ascencio IG # 0.03 10e3/ul Normal 0.00-0.03 [facility] Comment on above: Performed By: #### C BC #### [facility] [address] [place] [address] Dr. Belkis Ascencio IG % 0.3 % Normal 0.0-0.5 [facility] Comment on above: Performed By: #### C BC #### [facility] [address] [place] [address] Dr. Belkis Ascencio LYMPH # 1.9 103/ul Normal 1.2-3.8 [facility] Comment on above: Performed By: #### C BC #### [facility] [address] [place] [address] Dr. Belkis Ascencio Lymphocytes/100 WBC (Bld) 21.0 % Normal 20.5-60.0 [facility] Comment on above: Performed By: #### C BC #### [facility] [address] [place] [address] Dr. Belkis Ascencio MANUAL DIFF REQ NO Normal [facility] Comment on above: Performed By: #### C BC #### [facility] [address] [place] [address] Dr. Belkis Ascencio MCH (RBC) [Entitic mass] 30.9 pg Normal 26.7-34.0 [facility] Comment on above: Performed By: #### C BC #### [facility] [address] [place] [address] Dr. Belkis Ascencio MCHC (RBC) [Mass/Vol] 34.6 g/dL Normal 29.9-35.2 [facility] Comment on above: Performed By: #### C BC #### [facility] [address] [place] [address] Dr. Belkis Ascencio MCV (RBC) [Entitic vol] 89.5 fL Normal 81.0-99.0 [facility] Comment on above: Performed By: #### C BC #### [facility] [address] [place] [address] Dr. Belkis Ascencio MONO # 0.7 103/ul Normal 0.3-0.8 [facility] Comment on above: Performed By: #### C BC #### [facility] [address] [place] [address] Dr. Belkis Ascencio Monocytes/100 WBC (Bld) 7.8 % Normal 1.7-12.0 [facility] Comment on above: Performed By: #### C BC #### [facility] [address] [place] [address] Dr. Belkis Ascencio NEUT # 6.5 103/ul Normal 1.4-6.5 [facility] Comment on above: Performed By: #### C BC #### [facility] [address] [place] [address] Dr. Belkis Ascencio Neutrophils/100 WBC (Bld) 69.9 % Normal 43.0-75.0 [facility] Comment on above: Performed By: #### C BC #### [facility] [address] [address] [address] Belkis Ascencio Platelet mean volume (Bld) [Entitic vol] 9.6 fL Normal 9.5-13.5 [facility] Comment on above: Performed By: #### C BC #### [facility] [address] [place] [address] Dr. Belkis Ascencio PLT 264 103/ul Normal 150-450 [facility] Comment on above: Performed By: #### C BC #### [facility] [address] [place] [address] Dr. Belkis Ascencio RBC 4.27 106/ul Normal 4.20-5.40 [facility] Comment on above: Performed By: #### C BC #### [facility] [address] [place] [address] Dr. Belkis Ascencio WBC 9.3 103/ul Normal 4.0-11.0 [facility] Comment on above: Performed By: #### C BC #### [facility] [address] [place] [address] Dr. Belkis Ascencio Gastroenterology Office/Clin ic Noteon [...] Enteric Pane (more content not included)... Normal [facility] Comment on above: Result Comment: Elec tronically Signed By: Jessica Lopez CNP\.sumit\Date and Time Signed: 12/21/22 13:18 EDT PROF 14(COMP METB)on 023 Albumin [Mass/Vol] 4.0 g/dL Normal 3.4-5.0 [facility] Comment on above: Performed By: #### C MP #### [facility] [address] [place] [address] Dr. Belkis Ascencio Albumin/Globulin [Mass ratio] 1.0 {ratio} Normal [facility] Comment on above: Performed By: #### C MP #### [facility] [address] [place] [address] Dr. Belkis Ascencio ALP [Catalytic activity/Vol] 43 U/L Critically low 46-116 [facility] Comment on above: Performed By: #### C MP #### [facility] [address] [place] [address] Dr. Belkis Ascencio ALT [Catalytic activity/Vol] 18 U/L Normal 14-59 [facility] Comment on above: Performed By: #### C MP #### [facility] [address] [place] [address] Dr. Belkis Ascencio Anion gap [Moles/Vol] 9.5 mmol/L Normal [facility] Comment on above: Performed By: #### C MP #### [facility] [address] [place] [address] Dr. Belkis Ascencio AST [Catalytic activity/Vol] 13 U/L Critically low 15-37 [facility] Comment on above: Performed By: #### C MP #### [facility] [address] [place] [address] Dr. Belkis Ascencio Bilirubin [Mass/Vol] 0.3 mg/dL Normal 0.2-1.0 [facility] Comment on above: Performed By: #### C MP #### [facility] [address] [place] [address] Dr. Belkis Ascencio Calcium [Mass/Vol] 9.2 mg/dL Normal 8.5-10.1 [facility] Comment on above: Performed By: #### C MP #### [facility] [address] [place] [address] Dr. Belkis Ascencio Chloride [Moles/Vol] 104 mmol/L Normal 98-107 [facility] Comment on above: Performed By: #### C MP #### [facility] [address] [place] [address] Dr. Belkis Ascencio CO2 [Moles/Vol] 29.4 mmol/L Normal 21.0-32.0 [facility] Comment on above: Performed By: #### C MP #### [facility] [address] [address] [address] Belkis Ascencio Creatinine [Mass/Vol] 0.68 mg/dL Normal 0.55-1.02 [facility] Comment on above: Performed By: #### C MP #### [facility] [address] [address] [address] Belkis Ascencio EGFR-AF PALESTINIAN >60 Normal >=60 [facility] Comment on above: Performed By: #### C MP #### [facility] [address] [place] [address] Dr. Belkis Ascencio EGFR-NON AF PALESTINIAN >60 Normal >=60 [facility] Comment on above: Performed By: #### C MP #### [facility] [address] [place] [address] Dr. Belkis Ascencio Globulin (S) [Mass/Vol] 4.2 g/dL Normal [facility] Comment on above: Performed By: #### C MP #### [facility] [address] [place] [address] Dr. Belkis Ascencio Glucose [Mass/Vol] 92 mg/dL Normal 74-106 [facility] Comment on above: Performed By: #### C MP #### [facility] [address] [place] [address] Dr. Belkis Ascencio Potassium [Moles/Vol] 3.9 mmol/L Normal 3.5-5.1 [facility] Comment on above: Performed By: #### C MP #### [facility] [address] [place] [address] Dr. Belkis Ascencio Protein [Mass/Vol] 8.2 g/dL Normal 6.4-8.2 [facility] Comment on above: Performed By: #### C MP #### [facility] [address] [place] [address] Dr. Belkis Ascencio Sodium [Moles/Vol] 139 mmol/L Normal 136-145 [facility] Comment on above: Performed By: #### C MP #### [facility] [address] [place], [place] [address] Dr. Belkis Ascencio Urea nitrogen [Mass/Vol] 15.0 mg/dL Normal 7.0-18.0 [facility] Comment on above: Performed By: #### C MP #### [facility] [address] [place], [place] [address] Dr. Belkis Ascencio Urea nitrogen/Creatinine [Mass ratio] 22.1 mg/mg Normal [facility] Comment on above: Performed By: #### C MP #### [facility] [address] [place], [place] [address] Dr. Belkis Ascencio Patient Educationon 12-22-19 23 [...] serving. ? Talk with a diet and nutritional services cook (dietitian) if you have questions about specific [...] Bulgur wheat. Millet. Quinoa. Bran muffins. Popcorn. [place] wafer crackers. Meats and other proteins [place], kidney, and aparicio beans. Soybeans. Split peas. [...] Cream cheese. Sour cream. Fats and oils [place]. Beverages Soft drinks. Other foods Cakes and [...] 08/23/2006 Document Revised: 06/27/2018 Document Reviewed: 06/27/2018 [employer] Patient Education ? 2020 [employer] Normal [facility] BUNon 12-19-2022 Urea nitrogen [Mass/Vol] 16.0 mg/dL Normal 7.0-18.0 [facility] Comment on above: Performed By: #### B UN, CREA, LIPID, ELEC #### [facility] [address] [address] [address] Belkis Ascencio CREATININEon 12-19-2022 Creatinine [Mass/Vol] 0.87 mg/dL Normal 0.55-1.02 [facility] Comment on above: Performed By: #### C BC #### [facility] [address] [address] [address] Belkis Ascencio EGFR-AF PALESTINIAN >60 Normal >=60 [facility] Comment on above: Performed By: #### C BC #### [facility] [address] [address] [address] Belkis Ascencio EGFR-NON AF PALESTINIAN >60 Normal >=60 [facility] Comment on above: Performed By: #### C BC #### [facility] [address] [address] [address] Belkis Ascencio ELECTROLYTESon 12-19-2022 Anion gap [Moles/Vol] 10.4 mmol/L Normal [facility] Comment on above: Performed By: #### C BC #### [facility] [address] [address] [address] Belkis Ascencio Chloride [Moles/Vol] 105 mmol/L Normal 98-107 [facility] Comment on above: Performed By: #### C BC #### [facility] [address] [place] [address] Dr. Belkis Ascencio CO2 [Moles/Vol] 28.4 mmol/L Normal 21.0-32.0 [facility] Comment on above: Performed By: #### C BC #### [facility] [address] [place] [address] Dr. Belkis Ascencio Potassium [Moles/Vol] 3.8 mmol/L Normal 3.5-5.1 [facility] Comment on above: Performed By: #### C BC #### [facility] [address] [place] [address] Dr. Belkis Ascencio Sodium [Moles/Vol] 140 mmol/L Normal 136-145 [facility] Comment on above: Performed By: #### C BC #### [facility] [address] [place] [address] Dr. Belkis Ascencio LIPID PROFILEon 12-19-2022 CHOL-HDL RATIO NORM SEE BELOW Normal [facility] Comment on above: Result Comment: 3.3 - 4.4 LOW RISK 4.4 - 7.1 AVERAGE RISK 7.1 - 11.0 MODERATE RISK >11.0 HIGH RISK Performed By: #### C BC #### [facility] [address] [address] [address] Belkis Ascencio Cholesterol [Mass/Vol] 167 mg/dL Normal <=200 [facility] Comment on above: Performed By: #### C BC #### [facility] [address] [address] [address] Belkis Ascencio Cholesterol in HDL [Mass/Vol] 46 mg/dL Normal 40-60 [facility] Comment on above: Performed By: #### C BC #### [facility] [address] [address] [address] Belkis Ascencio Cholesterol in LDL [Mass/Vol] 107.8 mg/dL Normal [facility] Comment on above: Performed By: #### C BC #### [facility] [address] [address] [address] Belkis Ascencio Cholesterol.total/Eli sterol in HDL [Mass ratio] 3.6 {ratio} Normal [facility] Comment on above: Performed By: #### C BC #### [facility] [address] [place] [address] Dr. Belkis Ascencio HDL NORMAL > or = 60 mg/dl - LOW CARDIOVASCULAR RISK <40 mg/dl - HIGH CARDIOVASCULAR RISK Normal [facility] Comment on above: Performed By: #### C BC #### [facility] [address] [address] [address] Belkis Ascencio LDL CALC NORMAL SEE BELOW Normal [facility] Comment on above: Result Comment: <100 mg/dl OPTIMAL 100 - 129 mg/dl NEAR OR ABOVE OPTIMAL 130 - 159 mg/dl BORDERLINE HIGH 160 - 189 mg/dl HIGH >190 mg/dl VERY HIGH Performed By: #### C BC #### [facility] [address] [address] [address] Belkis Ascencio Triglyceride [Mass/Vol] 66 mg/dL Normal <=150 [facility] Comment on above: Performed By: #### C BC #### [facility] [address] [address] [address] Belkis Ascencio VLDL CALC 13.2 mg/dL Normal [facility] Comment on above: Performed By: #### C BC #### [facility] [address] [address] [address] Belkis Ascencio GLYCOHEMOGLOBIN A1Con 2022 ADA RECOMMENDATION SEE BELOW Normal [facility] Comment on above: Result Comment: ADA RECOMMENDED LIMIT 4.0 - 6.0 ADA THERAPEUTIC TARGET < 7.0 ACTION SUGGESTED > 7.0 Performed By: #### C BC #### [facility] [address] [place] [address] Dr. Belkis Ascencio Glucose [Mass/Vol] 100 mg/dL Normal [facility] Comment on above: Performed By: #### C BC #### [facility] [address] [place] [address] Dr. Belkis Ascencio HbA1c (Bld) [Mass fraction] 5.1 % Normal 4.5-6.2 [facility] Comment on above: Performed By: #### C BC #### [facility] [address] [place] [address] Dr. Belkis Ascencio BUNon 11-05-2022 Urea nitrogen [Mass/Vol] 13.0 mg/dL Normal 7.0-18.0 [facility] Comment on above: Performed By: #### C BC #### [facility] [address] [place] [address] Dr. Belkis Ascencio CHEM 7 PANEL, MANUAL ENTERon 11-05-2022 Blood Urea Nitrogen (BUN), MANUAL ENTER 13 [facility] BUN/CREA RATIO, MANUAL ENTER 13 [facility] CALCIUM (CA), MANUAL ENTER [facility] Carbon Diox(CO2), MANUAL ENTER 30.8 [facility] Chloride (CL), MANUAL ENTER 101 mmol/L [facility] CREATININE, SERUM, MANUAL ENTER 0.74 mg/dL [facility] Comment on above: eGFR>60 GLUCOSE, MANUAL ENTER [facility] MAGNESIUM (MG), MANUAL ENTER [facility] Phosphate (PO4), Manual Enter [facility] POTASSIUM (K+), MANUAL ENTER 3.5 [facility] SODIUM (NA), MANUAL ENTER 135 [facility] CREATININEon 11-05-2022 Creatinine [Mass/Vol] 0.74 mg/dL Normal 0.55-1.02 [facility] Comment on above: Performed By: #### C BC #### [facility] [address] [address] [address] Belkis Ascencio EGFR-AF PALESTINIAN >60 Normal >=60 [facility] Comment on above: Performed By: #### C BC #### [facility] [address] [place] [address] Dr. Belkis Ascencio EGFR-NON AF PALESTINIAN >60 Normal >=60 [facility] Comment on above: Performed By: #### C BC #### [facility] [address] [address] [address] Belkis Ascencio ELECTROLYTESon 11-05-2022 Anion gap [Moles/Vol] 6.7 mmol/L Normal [facility] Comment on above: Performed By: #### C BC #### [facility] [address] [place] [address] Dr. Belkis Ascencio Chloride [Moles/Vol] 101 mmol/L Normal 98-107 [facility] Comment on above: Performed By: #### C BC #### [facility] [address] [place] [address] Dr. Belkis Ascencio CO2 [Moles/Vol] 30.8 mmol/L Normal 21.0-32.0 [facility] Comment on above: Performed By: #### C BC #### [facility] [address] [place] [address] Dr. Belkis Ascencio Potassium [Moles/Vol] 3.5 mmol/L Normal 3.5-5.1 [facility] Comment on above: Performed By: #### C BC #### [facility] [address] [place] [address] Dr. Belkis Ascencio Sodium [Moles/Vol] 135 mmol/L Critically low 136-145 [facility] Comment on above: Performed By: #### C BC #### [facility] [address] [place] [address] Dr. Belkis Ascencio MG MAMM SCREEN 3D LORNA CADon 09-15-2022 MG MAMM SCREEN 3D LORNA CAD Patient: MARIANNA RAMIREZ Exam Date: 09/15/2022 : 1975 Gender:F Ordering : DR. ILANA KUMARI D.O. Admission #: [id number] Family : Order #: [id number] CLICK HERE TO VIEW EXAM RADIOLOGY REPORT [...] lung cancer at age 40. LOCATION: [facility] BREAST COMPOSITION: Heterogeneously dense,which may obscure small [...] on 09/15/2022 at 14:50 Normal [facility] BUNon 08-14-2022 Urea nitrogen [Mass/Vol] 15.0 mg/dL Normal 7.0-18.0 [facility] Comment on above: Performed By: #### C BRITTANI, TSH, ELEC, BUN #### [facility] [address] [address] [address] Belkis Ascencio CBC AUTO DIFFon 08-14-2022 BASO # 0.0 103/ul Normal 0.0-0.1 [facility] Comment on above: Performed By: #### C BC #### [facility] [address] [address] [address] Belkis Ascencio Basophils/100 WBC (Bld) 0.3 % Normal 0.2-2.0 [facility] Comment on above: Performed By: #### C BC #### [facility] [address] [place] [address] Dr. Belkis Ascencio EO # 0.1 103/ul Normal 0.0-0.7 [facility] Comment on above: Performed By: #### C BC #### [facility] [address] [place] [address] Dr. Belkis Ascencio Eosinophils/100 WBC (Bld) 0.7 % Critically low 0.9-7.0 [facility] Comment on above: Performed By: #### C BC #### [facility] [address] [place] [address] Dr. Belkis Ascencio Erythrocyte distribution width (RBC) [Ratio] 11.4 % Normal 11.0-15.0 [facility] Comment on above: Performed By: #### C BC #### [facility] [address] [place] [address] Dr. Belkis Ascencio Hematocrit (Bld) [Volume fraction] 38.4 % Normal 36.0-48.0 [facility] Comment on above: Performed By: #### C BC #### [facility] [address] [place] [address] Dr. Belkis Ascencio Hemoglobin (Bld) [Mass/Vol] 13.3 g/dL Normal 12.0-16.0 [facility] Comment on above: Performed By: #### C BC #### [facility] [address] [place] [address] Dr. Belkis Ascencio IG # 0.02 10e3/ul Normal 0.00-0.03 [facility] Comment on above: Performed By: #### C BC #### [facility] [address] [place] [address] Dr. Belkis Ascencio IG % 0.2 % Normal 0.0-0.5 [facility] Comment on above: Performed By: #### C BC #### [facility] [address] [place] [address] Dr. Belkis Ascencio LYMPH # 2.1 103/ul Normal 1.2-3.8 [facility] Comment on above: Performed By: #### C BC #### [facility] [address] [place] [address] Dr. Belkis Ascencio Lymphocytes/100 WBC (Bld) 23.1 % Normal 20.5-60.0 [facility] Comment on above: Performed By: #### C BC #### [facility] [address] [place] [address] Dr. Belkis Ascencio MANUAL DIFF REQ NO Normal [facility] Comment on above: Performed By: #### C BC #### [facility] [address] [place] [address] Dr. Belkis Ascencio MCH (RBC) [Entitic mass] 30.9 pg Normal 26.7-34.0 [facility] Comment on above: Performed By: #### C BC #### [facility] [address] [place] [address] Dr. Belkis Ascencio MCHC (RBC) [Mass/Vol] 34.6 g/dL Normal 29.9-35.2 [facility] Comment on above: Performed By: #### C BC #### [facility] [address] [place] [address] Dr. Belkis Ascencio MCV (RBC) [Entitic vol] 89.1 fL Normal 81.0-99.0 [facility] Comment on above: Performed By: #### C BC #### [facility] [address] [place] [address] Dr. Belkis Ascencio MONO # 0.6 103/ul Normal 0.3-0.8 [facility] Comment on above: Performed By: #### C BC #### [facility] [address] [place] [address] Dr. Belkis Ascencio Monocytes/100 WBC (Bld) 6.8 % Normal 1.7-12.0 [facility] Comment on above: Performed By: #### C BC #### [facility] [address] [place] [address] Dr. Belkis Ascencio NEUT # 6.1 103/ul Normal 1.4-6.5 [facility] Comment on above: Performed By: #### C BC #### [facility] [address] [place] [address] Dr. Belkis Ascencio Neutrophils/100 WBC (Bld) 68.9 % Normal 43.0-75.0 [facility] Comment on above: Performed By: #### C BC #### [facility] [address] [place] [address] Dr. Belkis Ascencio Platelet mean volume (Bld) [Entitic vol] 9.4 fL Critically low 9.5-13.5 [facility] Comment on above: Performed By: #### C BC #### [facility] [address] [place] [address] Dr. Belkis Ascencio PLT 305 103/ul Normal 150-450 [facility] Comment on above: Performed By: #### C BC #### [facility] [address] [place] [address] Dr. Belkis Ascencio RBC 4.31 106/ul Normal 4.20-5.40 [facility] Comment on above: Performed By: #### C BC #### [facility] [address] [place] [address] Dr. Belkis Ascencio WBC 8.9 103/ul Normal 4.0-11.0 [facility] Comment on above: Performed By: #### C BC #### [facility] [address] [place] [address] Dr. Belkis Ascencio CREATININEon 08-14-2022 Creatinine [Mass/Vol] 0.73 mg/dL Normal 0.55-1.02 [facility] Comment on above: Performed By: #### C BRITTANI, TSH, ELEC, BUN #### [facility] [address] [place] [address] Dr. Belkis Ascencio EGFR-AF PALESTINIAN >60 Normal >=60 [facility] Comment on above: Performed By: #### C BRITTANI, TSH, ELEC, BUN #### [facility] [address] [place] [address] Dr. Belkis Ascencio EGFR-NON AF PALESTINIAN >60 Normal >=60 [facility] Comment on above: Performed By: #### C BRITTANI, TSH, ELEC, BUN #### [facility] [address] [address] [address] Belkis Ascencio ELECTROLYTESon 08-14-2022 Anion gap [Moles/Vol] 10.4 mmol/L Normal [facility] Comment on above: Performed By: #### C BRITTANI, TSH, ELEC, BUN #### [facility] [address] [place] [address] Dr. Belkis Ascencio Chloride [Moles/Vol] 100 mmol/L Normal 98-107 [facility] Comment on above: Performed By: #### C BRITTANI, TSH, ELEC, BUN #### [facility] [address] [address] [address] Belkis Ascencio CO2 [Moles/Vol] 29.8 mmol/L Normal 21.0-32.0 [facility] Comment on above: Performed By: #### C BRITTANI, TSH, ELEC, BUN #### [facility] [address] [place] [address] Dr. Belkis Ascencio Potassium [Moles/Vol] 4.2 mmol/L Normal 3.5-5.1 [facility] Comment on above: Performed By: #### C BRITTANI, TSH, ELEC, BUN #### [facility] [address] [address] [address] Belkis Ascencio Sodium [Moles/Vol] 136 mmol/L Normal 136-145 [facility] Comment on above: Performed By: #### C BRITTANI, TSH, ELEC, BUN #### [facility] [address] [place] [address] Dr. Belkis Ascencio GLYCOHEMOGLOBIN A1Con 2021 ADA RECOMMENDATION SEE BELOW Normal [facility] Comment on above: Result Comment: ADA RECOMMENDED LIMIT 4.0 - 6.0 ADA THERAPEUTIC TARGET < 7.0 ACTION SUGGESTED > 7.0 Performed By: #### A 1C #### [facility] [address] [place] [address] Dr. Belkis Ascencio Glucose [Mass/Vol] 105 mg/dL Normal [facility] Comment on above: Performed By: #### A 1C #### [facility] [address] [place] [address] Dr. Belkis Ascencio HbA1c (Bld) [Mass fraction] 5.3 % Normal 4.5-6.2 [facility] Comment on above: Performed By: #### A 1C #### [facility] [address] [place], [place] [address] Dr. Belkis Ascencio TSHon 08-14-2022 TSH 1.011 uIU/mL Normal 0.358-3.740 [facility] Comment on above: Performed By: #### C BRITTANI, TSH, ELEC, BUN #### [facility] [address] [place], [place] [address] Dr. Belkis Ascencio Urinalysis - DIPSTICKon 03-06 Appearance (U) clougy [employer] Other Bilirubin Ql (U) Negative [employer] Other Color (U) yellow [employer] Other Glucose Ql (U) Negative [employer] Other Hemoglobin Ql (U) moderate [employer] Other Ketones Ql (U) Negative [employer] Other Leukocyte esterase Test strip Ql (U) Negative [employer] Other Nitrite Ql (U) Negative [employer] Other pH (U) 6.0 [pH] [employer] Other Protein Ql (U) Negative [employer] Other Specific gravity (U) [Rel density] 1.025 [employer] Other Urobilinogen (U) [Mass/Vol] wnl [employer] Other Urinalysis - DIPSTICK Nor [employer] Other Urine Cultureon 03-22-2022 Bacteria identified Cx Nom (U) [employer] Other Cardiac echo study Procedure Ordered By: Vickey Mahan on 03-19-2022 Ao peak wilner 1.48 m/s [facility] Work Phone: Ascending [facility] AV LVOT peak gradient 5 mmHg [facility] Work Phone: AV peak gradient 9 mmHG [facility] Work Phone: AV Velocity Ratio 0.76 [facility] Work Phone: ROYAL (continuity Vmax) 2.14 cm2 [facility] Work Phone: ROYAL index (continuity Vmax) 1.28 m/s [facility] Work Phone: Avg e' pk wilner 0.12 m/s [facility] Work Phone: Avg E/e' ratio 6.38 [facility] Work Phone: Body surface area Derived from formula 1.67 m2 [facility] Work Phone: DI (Vmax) 0.76 [facility] Work Phone: E wave decelartion time 246.[address] [facility] Work Phone: e' lateral pk wilner 0.1360 m/s [facility] Work Phone: e' lateral pk wilner 0.14 m/s [facility] Work Phone: e' septal pk wilner 0.1110 m/s [facility] Work Phone: e' septal pk wilner 0.11 m/s [facility] Work Phone: E/A ratio 1.39 [facility] Work Phone: E/e' lateral ratio 5.74 [facility] Work Phone: E/e' septal ratio 7.03 [facility] Work Phone: FS 30 % 28 - 44 % [facility] Work Phone: IVC ostium 1.11 cm [facility] Work Phone: IVS 0.69 cm [facility] Work Phone: LA AREA 2CH 14.80 cm2 [facility] Work Phone: LA ESV SP 2CH (MOD) 37 mL [facility] Work Phone: [facility]: LV Mass Index 52.8 g/m2 [facility] Work Phone: LV RWT 0.24 [facility]: LVIDD 4.66 [facility] Work Phone: LVIDS 3.28 cm [facility] Work Phone: LVOT area 2.83 cm2 [facility] Work Phone: LVOT diameter 1.90 cm [facility] Work Phone: LVOT peak wilner 1.12 m/s [facility] Work [facility]: LVOT peak VTI 20.60 [facility] Work Phone: LVOT stroke volume 58 cm3 [facility] Work Phone: LVOT stroke volume index 34.96 ml/m2 [facility] Work Phone: MV pk A wilner 0.56 m/s [facility] Work Phone: MV pk E wilner 0.78 m/s [facility] Work Phone: MV stenosis pressure 1/2 time 72.00 ms [facility] Work Phone: MV valve area p 1/2 method 3.06 cm2 [facility] Work Phone: PW 0.56 [facility] Work Phone: Right ventricle end diastolic volume index 50.90 mL/m[facility] Work Phone: Right ventricle end systolic volume index 20.36 [facility] Work Phone: RV basal diam 2.97 cm [facility] Work Phone: RV EDV 85 mL [facility] Work Phone: RV EF 60 % [facility] Work Phone: RV ESV 34 mL [facility] Work Phone: RV long diam 7.97 cm [facility] Work Phone: RV mid diam 2.09 cm [facility] Work Phone: RV S' 13.80 cm/s [facility] Work Phone: Sinus 2.36 cm [facility] Work Phone: STJ 2.46 cm [facility] Work Phone: Stroke Volume 58 cm/mL [facility] Work Phone: Stroke volume index 35 [facility] Work Phone: TAPSE 2.46 cm [facility] Work Phone: [facility] Work Phone: Cardiac echo study Procedure [...] independent workstation was performed. Imaging system used: Splice. [facility] Radiology Study observation (narrative) [facility] Urinalysis - AUTOMATEDon Appearance (U) clear [employer] Other Bilirubin Ql (U) Negative [employer] Other Color (U) yellow [employer] Other Glucose Ql (U) Negative [employer] Other Hemoglobin Ql (U) [employer] Other Ketones Ql (U) Negative [employer] Other Leukocyte esterase Test strip Ql (U) [employer] Other Nitrite Ql (U) Negative [employer] Other pH (U) 7.0 [pH] [employer] Other Protein Ql (U) Negative [employer] Other Specific gravity (U) [Rel density] 1.010 [employer] Other Urobilinogen (U) [Mass/Vol] 0.2 mg/dL [employer] Other Urinalysis - AUTOMATED No rt [employer] Other Urine Cultureon 03-12-2022 Urine Culture >100,000 [employer] Other Urine Culture <16 Susceptible [employer] Other Urine Culture >16 Resistant [employer] Other Urine Culture <4 Susceptible [employer] Other Urine Culture 4 Susceptible [employer] Other Urine Culture <2 Susceptible [employer] Other Urine Culture <1 Susceptible [employer] Other Urine Culture <0.5 Susceptible [employer] Other Urine Culture <32 Susceptible [employer] Other Urine Culture >8 Resistant [employer] Other Urine Culture <2/38 Susceptible [employer] Other CBC AUTO DIFFon 02-20-2022 BASO # 0.0 103/ul Normal 0.0-0.1 [facility] Comment on above: Performed By: #### C BC #### [facility] [address] [address] [address] Belkis Ascencio Basophils/100 WBC (Bld) 0.4 % Normal 0.2-2.0 [facility] Comment on above: Performed By: #### C BC #### [facility] [address] [address] [address] Belkis Ascencio EO # 0.1 103/ul Normal 0.0-0.7 [facility] Comment on above: Performed By: #### C BC #### [facility] [address] [place] [address] Dr. Belkis Ascencio Eosinophils/100 WBC (Bld) 1.0 % Normal 0.9-7.0 [facility] Comment on above: Performed By: #### C BC #### [facility] [address] [place] [address] Dr. Belkis Ascencio Erythrocyte distribution width (RBC) [Ratio] 11.5 % Normal 11.0-15.0 [facility] Comment on above: Performed By: #### C BC #### [facility] [address] [place] [address] Dr. Belkis Ascencio Hematocrit (Bld) [Volume fraction] 38.8 % Normal 36.0-48.0 [facility] Comment on above: Performed By: #### C BC #### [facility] [address] [place] [address] Dr. Belkis Ascencio Hemoglobin (Bld) [Mass/Vol] 13.2 g/dL Normal 12.0-16.0 [facility] Comment on above: Performed By: #### C BC #### [facility] [address] [place] [address] Dr. Belkis Ascencio IG # 0.01 10e3/ul Normal 0.00-0.03 [facility] Comment on above: Performed By: #### C BC #### [facility] [address] [place] [address] Dr. Belkis Ascencio IG % 0.1 % Normal 0.0-0.5 [facility] Comment on above: Performed By: #### C BC #### [facility] [address] [place] [address] Dr. Belkis Ascencio LYMPH # 1.6 103/ul Normal 1.2-3.8 [facility] Comment on above: Performed By: #### C BC #### [facility] [address] [place] [address] Dr. Belkis Ascencio Lymphocytes/100 WBC (Bld) 22.1 % Normal 20.5-60.0 [facility] Comment on above: Performed By: #### C BC #### [facility] [address] [place] [address] Dr. Belkis Ascencio MANUAL DIFF REQ NO Normal [facility] Comment on above: Performed By: #### C BC #### [facility] [address] [place] [address] Dr. Belkis Ascencio MCH (RBC) [Entitic mass] 31.3 pg Normal 26.7-34.0 [facility] Comment on above: Performed By: #### C BC #### [facility] [address] [place] [address] Dr. Belkis Ascencio MCHC (RBC) [Mass/Vol] 34.0 g/dL Normal 29.9-35.2 [facility] Comment on above: Performed By: #### C BC #### [facility] [address] [place] [address] Dr. Belkis Ascencio MCV (RBC) [Entitic vol] 91.9 fL Normal 81.0-99.0 [facility] Comment on above: Performed By: #### C BC #### [facility] [address] [place] [address] Dr. Belkis Ascencio MONO # 0.6 103/ul Normal 0.3-0.8 [facility] Comment on above: Performed By: #### C BC #### [facility] [address] [place] [address] Dr. Belkis Ascencio Monocytes/100 WBC (Bld) 8.7 % Normal 1.7-12.0 [facility] Comment on above: Performed By: #### C BC #### [facility] [address] [place] [address] Dr. Belkis Ascencio NEUT # 4.8 103/ul Normal 1.4-6.5 [facility] Comment on above: Performed By: #### C BC #### [facility] [address] [place] [address] Dr. Belkis Ascencio Neutrophils/100 WBC (Bld) 67.7 % Normal 43.0-75.0 [facility] Comment on above: Performed By: #### C BC #### [facility] [address] [place] [address] Dr. Belkis Ascencio Platelet mean volume (Bld) [Entitic vol] 9.4 fL Critically low 9.5-13.5 [facility] Comment on above: Performed By: #### C BC #### [facility] [address] [place] [address] Dr. Belkis Ascencio PLT 270 103/ul Normal 150-450 [facility] Comment on above: Performed By: #### C BC #### [facility] [address] [address] [address] Belkis Ascencio RBC 4.22 106/ul Normal 4.20-5.40 [facility] Comment on above: Performed By: #### C BC #### [facility] [address] [place] [address] Dr. Belkis Ascencio WBC 7.1 103/ul Normal 4.0-11.0 [facility] Comment on above: Performed By: #### C BC #### [facility] [address] [place] [address] Dr. Belkis Ascencio PROF CHEM 8 (BAS METB)on Anion gap [Moles/Vol] 9.0 mmol/L Normal [facility] Comment on above: Performed By: #### C BC #### [facility] [address] [place] [address] Dr. Belkis Ascencio Calcium [Mass/Vol] 8.8 mg/dL Normal 8.5-10.1 [facility] Comment on above: Performed By: #### C BC #### [facility] [address] [place] [address] Dr. Belkis Ascencio Chloride [Moles/Vol] 102 mmol/L Normal 98-107 [facility] Comment on above: Performed By: #### C BC #### [facility] [address] [place] [address] Dr. Belkis Ascencio CO2 [Moles/Vol] 29.2 mmol/L Normal 21.0-32.0 [facility] Comment on above: Performed By: #### C BC #### [facility] [address] [address] [address] Beliks Ascencio Creatinine [Mass/Vol] 0.76 mg/dL Normal 0.55-1.02 [facility] Comment on above: Performed By: #### C BC #### [facility] [address] [address] [address] Belkis Ascencio EGFR-AF PALESTINIAN >=60 Normal >=60 [facility] Comment on above: Performed By: #### C BC #### [facility] [address] [address] [address] Belkis Ascencio EGFR-NON AF PALESTINIAN >=60 Normal >=60 [facility] Comment on above: Performed By: #### C BC #### [facility] [address] [place] [address] Dr. Belkis Ascencio Glucose [Mass/Vol] 109 mg/dL Critically high 74-106 [facility] Comment on above: Performed By: #### C BC #### [facility] [address] [place] [address] Dr. Belkis Ascencio Potassium [Moles/Vol] 4.4 mmol/L Normal 3.5-5.1 [facility] Comment on above: Performed By: #### C BC #### [facility] [address] [place] [address] Dr. Belkis Ascencio Sodium [Moles/Vol] 136 mmol/L Normal 136-145 [facility] Comment on above: Performed By: #### C BC #### [facility] [address] [place] [address] Dr. Belkis Ascencio Urea nitrogen [Mass/Vol] 12.0 mg/dL Normal 7.0-18.0 [facility] Comment on above: Performed By: #### C BC #### [facility] [address] [place] [address] Dr. Belkis Ascencio Urea nitrogen/Creatinine [Mass ratio] 15.8 mg/mg Normal [facility] Comment on above: Performed By: #### C BC #### [facility] [address] [place] [address] Dr. Belkis Ascencio Vital Signs Date Time Vital Sign Value Performing Clinician Facility 06-22-2024 13:22-0400 Diastolic blood pressure 51 mm[Hg] Trip Sosa MD Work Phone: [facility] 06-22-2024 13:22-0400 Heart rate 77 /min Trip Sosa MD Work Phone: [facility] 06-22-2024 13:22-0400 Systolic blood pressure 99 mm[Hg] Trip Sosa MD Work Phone: [facility] 06-22-2024 13:21-0400 Body height 157.5 cm Trip Sosa MD Work Phone: [facility] 06-22-2024 13:21-0400 Body mass index (BMI) [Ratio] 27.78 kg/m2 Trip Sosa MD Work Phone: [facility] 06-22-2024 13:21-0400 Body weight 68.9 kg Trip Sosa MD Work Phone: [facility] 06-22-2024 13:21-0400 Respiratory rate 18 /min Trip Sosa MD Work Phone: [facility] 06-22-2024 13:21-0400 SaO2% (BldA) [Mass fraction] 97 % Trip Sosa MD Work Phone: [facility] 06-22-2024 12:40-0400 Diastolic blood pressure 64 mm[Hg] Justyna Heller APRN-TICKET WRITER Work Phone: [facility] 06-22-2024 12:40-0400 Heart rate 78 /min Justyna Heller APRN-TICKET WRITER Work Phone: [facility] 06-22-2024 12:40-0400 Systolic blood pressure 129 mm[Hg] Justyna Heller APRN-TICKET WRITER Work Phone: [facility] 06-22-2024 11:25-0400 Body height 157.5 cm Justyna Heller APRN-TICKET WRITER Work Phone: [facility] 06-22-2024 11:25-0400 Body mass index (BMI) [Ratio] 26.7 kg/m2 Justyna Heller APRN-T[employer]ET WRITER Work Phone: [facility] 06-22-2024 11:25-0400 Body weight 66.22 kg Justyna Heller APRN-TICKET WRITER Work Phone: [facility] 06-08-2024 14:56-0400 Body height 157.5 cm Ever Biedenbach DO Work Phone: [facility] 06-08-2024 14:56-0400 Body mass index (BMI) [Ratio] 28.17 kg/m2 Ever Biedenbach DO Work Phone: [facility] 06-08-2024 14:56-0400 Body weight 69.85 kg Ever Biedenbach DO Work Phone: [facility] 06-01-2024 10:58-0400 Body height 157.5 cm Ever Biedenbach DO Work Phone: [facility] 06-01-2024 10:58-0400 Body mass index (BMI) [Ratio] 28.17 kg/m2 Ever Biedenbach DO Work Phone: [facility] 06-01-2024 10:58-0400 Body weight 69.85 kg Ever Biedenbach DO Work Phone: [facility] 05-24-2024 14:30-0400 Diastolic blood pressure 77 mm[Hg] MD Cj Lazo Work Phone: [facility] 05-24-2024 14:30-0400 Heart rate 98 /min MD Cj Lazo Work Phone: [facility] 05-24-2024 14:30-0400 Respiratory rate 16 /min MD Cj Lazo Work Phone: [facility] 05-24-2024 14:30-0400 SaO2% (BldA) [Mass fraction] 97 % MD Cj Lazo Work Phone: [facility] 05-24-2024 14:30-0400 Systolic blood pressure 124 mm[Hg] MD Cj Lazo Work Phone: [facility] 05-24-2024 12:45-0400 Inhaled oxygen flow rate 2 L/min MD Cj Lazo Work Phone: [facility] 05-24-2024 11:53-0400 Body temperature 98.2 [degF] MD Cj Lazo Work Phone: [facility] 05-24-2024 08:34-0400 Body height 158.12 cm MD Cj Lazo Work Phone: [facility] 05-24-2024 08:34-0400 Body weight 68 kg MD Cj Lazo Work Phone: [facility] 05-05-2024 09:04-0400 Body height 157.5 cm Ever Woodward DO Work Phone: [facility] 05-05-2024 09:04-0400 Body mass index (BMI) [Ratio] 28.17 kg/m2 Ever [employer] DO Work Phone: [facility] 05-05-2024 09:04-0400 Body weight 69.85 kg Ever Woodward DO Work Phone: [facility] 04-13-2024 09:23-0400 Body height 157.48 cm [facility] 04-13-2024 09:23-0400 Body mass index (BMI) [Ratio] 27.2 kg/m2 [facility] 04-13-2024 09:23-0400 Body weight 67.58 kg [facility] 04-13-2024 09:23-0400 Diastolic blood pressure 72 mm[Hg] [facility] 04-13-2024 09:23-0400 Heart rate 89 /min [facility] 04-13-2024 09:23-0400 SaO2% (BldA) [Mass fraction] 99 % [facility] 04-13-2024 09:23-0400 Systolic blood pressure 110 mm[Hg] [facility] 12-20-2023 10:54-0400 Blood Pressure Location Strat[place] Sarmini [facility] 12-20-2023 10:54-0400 Diastolic blood pressure 60 mm[Hg] [place] Sarmini [facility] 12-20-2023 10:54-0400 Heart rate 68 /min [place] Sarmini [facility] 12-20-2023 10:54-0400 Respiratory rate 18 /min [place] Sarmini [facility] 12-20-2023 10:54-0400 Systolic blood pressure 110 mm[Hg] [place] Sarmini [facility] 12-10-2023 10:28-0400 Body height 157.48 cm [facility] 12-10-2023 10:28-0400 Body mass index (BMI) [Ratio] 27.6 kg/m2 [facility] 12-10-2023 10:28-0400 Body weight 68.49 kg [facility] 12-10-2023 10:28-0400 Diastolic blood pressure 78 mm[Hg] [facility] 12-10-2023 10:28-0400 Heart rate 80 /min [facility] 12-10-2023 10:28-0400 Systolic blood pressure 115 mm[Hg] [facility] 12-02-2023 14:23-0400 Diastolic blood pressure 67 mm[Hg] Trip Sosa MD Work Phone: [facility] 12-02-2023 14:23-0400 Heart rate 73 /min Trip Sosa MD Work Phone: [facility] 12-02-2023 14:23-0400 Systolic blood pressure 108 mm[Hg] Trip Sosa MD Work Phone: [facility] 12-02-2023 14:21-0400 Body height 157.5 cm Trip Sosa MD Work Phone: [facility] 12-02-2023 14:21-0400 Respiratory rate 18 /min Trip Sosa MD Work Phone: [facility] 12-02-2023 14:21-0400 SaO2% (BldA) [Mass fraction] 97 % Trip Sosa MD Work Phone: [facility] 05-04-2023 12:18-0400 Blood Pressure Location Jessica Lopez [facility] 05-04-2023 12:18-0400 Body temperature 97.52 [degF] Jessica Lopez [facility] 05-04-2023 12:18-0400 Diastolic blood pressure 75 mm[Hg] Jessica Izaguirremetz [facility] 05-04-2023 12:18-0400 Heart rate 79 /min Jessica Izaguirremetz [facility] 05-04-2023 12:18-0400 Systolic blood pressure 110 mm[Hg] Jessica Izaguirremetz [facility] 04-22-2023 15:37-0400 Diastolic blood pressure 68 mm[Hg] Trip Sosa MD Work Phone: [facility] 04-22-2023 15:37-0400 Heart rate 86 /min Trip Sosa MD Work Phone: [facility] 08-17-2023 15:37-0400 Systolic blood pressure 115 mm[Hg] Trip Sosa MD Work Phone: [facility] 04-22-2023 15:36-0400 Body height 157.5 cm Trip Sosa MD Work Phone: [facility] 04-22-2023 15:36-0400 Body mass index (BMI) [Ratio] 25.02 kg/m2 Trip Sosa MD Work Phone: [facility] 04-22-2023 15:36-0400 Body weight 62.05 kg Trip Sosa MD Work Phone: [facility] 04-22-2023 15:36-0400 Respiratory rate 20 /min Trip Sosa MD Work Phone: [facility] 04-22-2023 15:36-0400 SaO2% (BldA) [Mass fraction] 98 % Trip Sosa MD Work Phone: [facility] 01-13-2023 10:12-0400 Blood Pressure Location Jessica Lopez [facility] 01-13-2023 10:12-0400 Body temperature 97.16 [degF] Jessica Lopez [facility] 01-13-2023 10:12-0400 Diastolic blood pressure 74 mm[Hg] Jessica Lopez [facility] 01-13-2023 10:12-0400 Heart rate 71 /min Jessica Lopez [facility] 01-13-2023 10:12-0400 Systolic blood pressure 107 mm[Hg] Jessica Lopez [facility] 12-28-2022 11:05-0400 Blood Pressure Location Petty AMBROSE [facility] 12-28-2022 11:05-0400 Diastolic blood pressure 50 mm[Hg] Dove SALAM [facility] 12-28-2022 11:05-0400 Heart rate 75 /min Dove SALAM [facility] 12-28-2022 11:05-0400 Mean blood pressure 66 mm[Hg] Dove SALAM [facility] 12-28-2022 11:05-0400 Respiratory rate 18 /min Dove SALAM [facility] 12-28-2022 11:05-0400 SaO2% (BldA) [Mass fraction] 99 % Dove SALAM [facility] 12-28-2022 11:05-0400 Systolic blood pressure 98 mm[Hg] Dove SALAM [facility] 12-28-2022 10:55-0400 Blood Pressure Location Dove SALAM [facility] 12-28-2022 10:55-0400 Diastolic blood pressure 40 mm[Hg] Dove SALAM [facility] 12-28-2022 10:55-0400 Heart rate 82 /min Dove SALAM [facility] 12-28-2022 10:55-0400 Mean blood pressure 59 mm[Hg] Dove SALAM [facility] 12-28-2022 10:55-0400 Respiratory rate 15 /min Dove SALAM [facility] 12-28-2022 10:55-0400 SaO2% (BldA) [Mass fraction] 98 % Dove SALAM [facility] 12-28-2022 10:55-0400 Systolic blood pressure 98 mm[Hg] Dove SALAM [facility] 12-28-2022 10:50-0400 Blood Pressure Location Dove SALAM [facility] 12-28-2022 10:50-0400 Diastolic blood pressure 45 mm[Hg] Dove SALAM [facility] 12-28-2022 10:50-0400 Heart rate 70 /min Dove SALAM [facility] 12-28-2022 10:50-0400 Mean blood pressure 58 mm[Hg] Dove SALAM [facility] 12-28-2022 10:50-0400 Respiratory rate 20 /min Dove SALAM [facility] 12-28-2022 10:50-0400 SaO2% (BldA) [Mass fraction] 96 % Dove SALAM [facility] 12-28-2022 10:50-0400 Systolic blood pressure 84 mm[Hg] Dove SALAM [facility] 12-28-2022 10:41-0400 Body temperature 97.52 [degF] Dove SALAM [facility] 12-28-2022 10:39-0400 Respiratory rate 18 /min Dove SALAM [facility] 12-28-2022 10:35-0400 Respiratory rate 16 /min Dove SALAM [facility] 12-28-2022 10:28-0400 Respiratory rate 18 /min Dove SALAM [facility] 12-28-2022 09:55-0400 Body temperature 96.98 [degF] Dove SALAM [facility] 12-21-2022 12:45-0400 Blood Pressure Location Jessica Lopez [facility] 12-21-2022 12:45-0400 Body temperature 96.98 [degF] Jessica Lopez [facility] 12-21-2022 12:45-0400 Diastolic blood pressure 77 mm[Hg] Jessica Lopez [facility] 12-21-2022 12:45-0400 Heart rate 66 /min Jessica Lopez [facility] 12-21-2022 12:45-0400 Systolic blood pressure 116 mm[Hg] Jessica Lopez [facility] 10-01-2022 14:42-0500 Diastolic blood pressure 66 mm[Hg] Trip Sosa MD Work Phone: [facility] 10-01-2022 14:42-0500 Heart rate 94 /min Trip Sosa MD Work Phone: [facility] 10-01-2022 14:42-0500 Systolic blood pressure 102 mm[Hg] Trip Sosa MD Work Phone: [facility] 10-01-2022 14:40-0500 Body height 157.5 cm Trip Sosa MD Work Phone: [facility] 10-01-2022 14:40-0500 Body mass index (BMI) [Ratio] 27.98 kg/m2 Trip Sosa MD Work Phone: [facility] 10-01-2022 14:40-0500 Body weight 69.4 kg Trip Sosa MD Work Phone: [facility] 01-26-2023 14:40-0500 Respiratory rate 16 /min Trip Sosa MD Work Phone: [facility] 10-01-2022 14:40-0500 SaO2% (BldA) [Mass fraction] 97 % Trip Sosa MD Work Phone: [facility] 03-22-2022 15:50-0400 Body height 157.48 cm Yas Garcia Other [employer] Other 03-22-2022 15:50-0400 Body mass index (BMI) [Ratio] 26.52 kg/m2 Yas Garcia Other [employer] Other 03-22-2022 15:50-0400 Body temperature 97.7 [degF] Yas Garcia Other [employer] Other 03-22-2022 15:50-0400 Body weight 65.77 kg Yas Garcia Other [employer] Other 03-22-2022 15:50-0400 SaO2% (BldA) [Mass fraction] 97 % Yas Garcia Other [employer] Other 03-19-2022 15:18-0400 Diastolic blood pressure 69 mm[Hg] Trip Sosa MD Work Phone: [facility] 03-19-2022 15:18-0400 Heart rate 76 /min Trip Sosa MD Work Phone: [facility] 03-19-2022 15:18-0400 Systolic blood pressure 120 mm[Hg] Trip Sosa MD Work Phone: [facility] 03-19-2022 15:17-0400 Body height 157.5 cm Trip Sosa MD Work Phone: [facility] 03-19-2022 15:17-0400 Body mass index (BMI) [Ratio] 27.25 kg/m2 Trip Sosa MD Work Phone: [facility] 03-19-2022 15:17-0400 Body weight 67.59 kg Trip Sosa MD Work Phone: [facility] 03-19-2022 15:17-0400 Respiratory rate 16 /min Trip Sosa MD Work Phone: [facility] 03-19-2022 15:17-0400 SaO2% (BldA) [Mass fraction] 97 % Trip Sosa MD Work Phone: [facility] 03-19-2022 14:02-0400 Body height 157.5 cm Justyna Heller ELECTRICAL LINE WORKER-TICKET WRITER Work Phone: [facility] 03-19-2022 14:02-0400 Body mass index (BMI) [Ratio] 26.65 kg/m2 Justyna Heller [employer]LECTRICAL [employer] WORKER-TICKET WRITER Work Phone: [facility] 03-19-2022 14:02-0400 Body weight 66.1 kg Justyna Heller ELECTRICAL LINE WORKER-TICKET WRITER Work Phone: [facility] 03-19-2022 14:02-0400 Diastolic blood pressure 67 mm[Hg] Justyna Heller [employer]LECTRICAL [employer] WORKER-TICKET WRITER Work Phone: [facility] 03-19-2022 14:02-0400 Systolic blood pressure 136 mm[Hg] Justyna Heller [employer]LECTRICAL [employer] WORKER-TICKET WRITER Work Phone: [facility] 03-12-2022 18:40-0400 Body height 157.48 cm Denise Alexander Other [employer] Other 03-12-2022 18:40-0400 Body mass index (BMI) [Ratio] 26.52 kg/m2 Denise Alexander Other [employer] Other 03-12-2022 18:40-0400 Body temperature 97.9 [degF] Denise Alexander Other [employer] Other 03-12-2022 18:40-0400 Body weight 65.77 kg Denise Alexander Other [employer] Other 03-12-2022 18:40-0400 Diastolic blood pressure 71 mm[Hg] Denise Alexander Other [employer] Other 03-12-2022 18:40-0400 Respiratory rate 16 /min Denise Alexander Other [employer] Other 03-12-2022 18:40-0400 SaO2% (BldA) [Mass fraction] 99 % Denise Alexander Other [employer] Other 03-12-2022 18:40-0400 Systolic blood pressure 124 mm[Hg] Denise Alexander Other [employer] Other Encounters Encounter Date Encounter Type Care Provider Facility Start: 06-27-2024 ambulatory VIKKI Damon ty:[facility] Start: 06-22-2024 End: 06-22-2024 Office outpatient visit 15 minutes Trip Sosa MD Work Phone: [facility] Comment on above: Cardiac microvascula r disease (Primary Dx) Start: 06-22-2024 ambulatory CJ LAZO Facility:[facility] Start: 06-22-2024 End: 06-22-2024 Subsequent hospital visit by physician Justyna Heller ELECTRICAL [employer] WORKER-TICKET WRITER Work Phone: [facility] Comment on above: Arrived Start: 06-08-2024 [...] surgery center MD Cj Lazo Work Phone: [facility] [place] Start: 05-24-2024 End: 05-24-2024 ambulatory MD Cj Lazo Work Phone: [facility] Work Phone: Start: 05-17-2024 End: 05-17-2024 External Result Encounter Ever Woodward DO Work Phone: [facility] External [facility] Unsolicited Start: 05-17-2024 End: 05-17-2024 External Result Encounter Ever Woodward DO Work Phone: [facility] External Department Unsolicited Start: 05-17-2024 End: 05-17-2024 Patient encounter procedure MD Cj Lazo Work Phone: [facility] [facility] Work Phone: Start: 05-17-2024 End: 05-17-2024 ambulatory MD Cj Lazo Work Phone: [facility] Work Phone: Start: 05-05-2024 End: 05-05-2024 Bamboo [...] EVER WOODWARD Not Available Start: 04-19-2024 ambulatory [facility] Work Phone: Start: 04-19-2024 [facility] Work Phone: Start: 04-13-2024 End: 04-13-2024 ambulatory [facility] Work Phone: Start: 04-13-2024 End: 04-13-2024 Patient encounter procedure [facility] Work Phone: Start: 12-20-2023 End: 12-21-2023 ambulatory Viral Smith Facility:[facility] Start: 12-20-2023 End: 12-20-2023 Patient encounter procedure Viral Shawi [facility] Start: 12-10-2023 End: 12-10-2023 ambulatory [facility] Work Phone: Start: 12-10-2023 End: 12-10-2023 Patient encounter procedure [facility] Work Phone: Start: 12-02-2023 End: 12-02-2023 Office outpatient visit 15 minutes Trip Sosa MD Work Phone: [facility] Comment on above: Cardiac microvascula r disease (Primary Dx) Start: 12-02-2023 ambulatory CJ LAZO Facility:[facility] Start: 11-04-2023 End: 11-05-2023 ambulatory Jessica Lopez Facility:[facility] Start: 11-04-2023 End: 11-04-2023 Patient encounter procedure Jessica Lopez [facility] Start: 10-29-2023 Telephone encounter [...] End: 05-04-2023 Patient encounter procedure Jessica Lopez [facility] Start: 04-22-2023 End: 04-23-2023 Office outpatient visit 15 minutes Trip Sosa MD Work Phone: [facility] Comment on above: Other cardiomyopathy (Primary Dx); Palpitations Start: 04-12-2023 Telephone encounter Alicia baumann MD Work Phone: [facility] Comment on above: Question and update Start: 01-13-2023 End: 01-14-2023 ambulatory Jessica Lopez Facility:[facility] Start: 01-13-2023 End: 01-13-2023 Patient encounter procedure Jessica Lopez [facility] Start: 12-28-2022 End: 12-29-2022 ambulatory Petty AMBROSE Facility:[facility] Start: 12-28-2022 End: 12-28-2022 Patient encounter procedure Petty AMBROSE [facility] Start: 12-22-2022 End: 12-23-[address] DOCTOR HENAO Facility:[facility] Start: 12-21-2022 End: 12-22-[address] DOCTOR HENAO Facility:[facility] Start: 12-21-2022 End: 12-22-2022 ambulatory Jessica Lopez Facility:[facility] Start: 12-21-2022 End: 12-21-2022 Patient encounter procedure Jessica Lopez [facility] Start: 12-19-2022 End: 12-20-[address] DOCTOR HENAO Facility:[facility] Start: 11-19-2022 End: 11-20-[address] DOCTOR HENAO Facility:[facility] Start: 11-14-2022 Orders Only Alicia Bolivar MD Work Phone: [facility] Comment on above: Developmental venous anomaly (Primary Dx) Start: 11-06-2022 ambulatory Kia Colin RN [facility] Start: 11-05-2022 End: 11-06-[address] DOCTOR HENAO Facility:[facility] Start: 10-01-2022 End: 10-01-2022 Office outpatient visit 15 minutes Trip Sosa MD Work Phone: [facility] Comment on above: Other cardiomyopathy (Primary Dx) Start: 09-15-2022 End: 09-16-[address] CJ LAZO Facility:[facility] Start: 08-14-2022 End: 08-15-[address] DOCTOR HENAO Facility:[facility] Start: 03-24-2022 End: 03-24-2022 ambulatory Yas Garcia Other [employer] Other Start: 03-24-2022 Telephone encounter Yas Garcia [facility] Start: 03-22-2022 End: 03-22-2022 ambulatory Yas Garcia Other [employer] Other Start: 03-22-2022 Office outpatient vi sit 15 minutes Yas Garcia [facility] Start: 03-19-2022 End: 03-19-2022 Office outpatient visit 15 minutes Trip Sosa MD Work Phone: [facility] Comment on above: Cardiac syndrome X ( Primary Dx); Palpitations Start: 03-19-2022 End: 03-19-2022 Subsequent hospital visit by physician Justyna HUANG Work Phone: [facility] Comment on above: Arrived Start: 03-12-2022 End: 03-12-2022 Departed [employer] SECURITIES CONSULTANT-Caprice Alexander Work Phone: [facility] [place] Start: 03-12-2022 End: 03-12-2022 ambulatory Denise Maxwellault Other [facility] [employer] Other Start: 03-12-2022 Office outpatient ne w 20 minutes Denise Maxwellault [facility] Start: 02-20-2022 End: 02-21-[address] [facility] Facility: Procedures Date Procedure Procedure Detail Performing Clinician Start: 06-22-2024 Cta hrt cornry art/bypass grfts contrst 3d post Justyna Heller ELECTRICAL LINE WORKER-TICKET WRITER Work Phone: Start: 05-24-2024 SARS-CoV-2, Influenza & [...] 2d w/wom-mode compl spec&colr d Justyna Heller ELECTRICAL LINE WORKER-TICKET WRITER Work Phone: Start: 03-12-2022 Piperacillin/tazobactam Denise Palaciosl t Other Start: 09-18-2021 Lipid 1996 panel - Serum or Plasma Justyna Heller ELECTRICAL LINE WORKER-TICKET WRITER Work Phone: Start: 09-27-2020 Colonoscopy Ever Woodward DO Work Phone: Start: 09-27-2020 Colonoscopy Jessicaapril IzaguirreJohn Esophagogastroduoden oscopy gastric outlet reduction Jessica Lopez Plan of Treatment Date Care Activity Detail Author Start: 09-27-2030 Screening for malign ant neoplasm of colon [facility] Start: 10-07-2028 Screening for malign ant neoplasm of cervix [facility] Start: 12-20-2027 Lipid panel LIPID SCREENING [facility] Start: 09-18-2026 Fasting lipid profile LIPID SCREENIN G [facility] Start: 09-18-2026 Lipid panel LIPID SCREENING [facility] Start: 01-05-2026 Tetanus vaccination TETANUS [facility] Start: 01-05-2026 Urine microalbumin profile DTa P,Tdap,Td Vaccine (2 - Td or Tdap) [facility] Start: 12-29-2024 End: 12-29-2024 Patient encounter procedure 12/29/2024 9:00 AM EDT Office Visit [facility] [address] [place] [address] Ever Woodward DO [address] [place] [address] [facility] Start: 12-21-2024 End: 12-21-2024 Patient encounter procedure 12/21/2024 1:45 PM EDT Office Visit [facility] [address] [place] [address] Trip Sosa MD [address] [place] [address] [facility] Start: 10-31-2024 End: 10-31-2024 Patient encounter procedure 10/31/2024 10:45 AM EST Office Visit [facility] [address] [place] [phone] Ilana Kumari DO [address] [place] [address] [facility] Start: 09-18-2024 Diabetes Screening Diabetes Screenin g [facility] Start: 09-17-2024 Screening for malign ant neoplasm of breast Mammogram [facility] Start: 07-06-2024 End: 06-01-2025 Thyrotropin [Units/volume] in Serum or Plasma [facility] Work Phone: Comment on above: Expected: 07/06/2024 (Approximate), Expires: 06/01/2025 Start: 07-06-2024 End: 06-01-2025 Triiodothyronine (T3) [Mass/volume] in Serum or Plasma T3 Lab Routine Thyroid nodule (CMS/HCC) Expected: 07/06/2024 (Approximate), Expires: 06/01/2025 [facility] Comment on above: Expected: 07/06/2024 (Approximate), Expires: 06/01/2025 Start: 06-08-2024 End: 06-08-2024 Patient encounter procedure [facility] Comment on above: Arrived Start: 06-01-2024 End: 06-01-2024 Patient encounter procedure [facility] Comment on above: Arrived Start: 05-24-2024 [facility] Start: 05-24-2024 End: 05-24-2024 Patient encounter procedure 05/24/2024 9:45 AM EDT Procedure Visit [facility] Ever Woodward, DO [address] [place] [address] [facility] Start: 05-24-2024 [facility] Start: 05-07-2024 COVID-19 VACCINE () COVID-19 VACCINE ( season) [facility] Start: 05-07-2024 Influenza vaccination Influenza Vacc ine (#1) [facility] Start: 05-05-2024 End: 05-05-2024 Patient encounter procedure 05/05/2024 9:00 AM EDT Office Visit [facility] [address] [place] [address] Ever Woodward, [address] [facility] [place] [address] Arrived [facility] [place] Comment on above: Arrived Start: 04-19-2024 Patient referral [facility] Work Phone: Start: 12-10-2023 Patient referral [facility] Work Phone: Start: 11-04-2023 End: 11-04-2023 Patient encounter procedure 11/04/2023 3:15 PM EST Office Visit [facility] [address] [place] [phone] Trip Sosa MD [address] [place] [address] [facility] Start: 09-22-2023 Screening for malign ant neoplasm of breast MAMMOGRAM SCREENING DISCUSSION [facility] Start: 09-06-2023 Depression Assessment Depression Ass essment [facility] Start: 06-06-2023 End: 12-14-2023 Mri brain brain stem w/o w/contrast material MRI BRAIN WO/W IVCON Radiology Routine Developmental venous anomaly Expected: 06/06/2023 (Approximate), Expires: 12/14/2023 [facility] Work Phone: Comment on above: Expected: 06/06/2023 (Approximate), Expires: 12/14/2023 Start: 05-07-2023 COVID-19 VACCINE ( season) COVID-19 VACCINE ( season) [facility] Start: 05-07-2023 Influenza vaccination C [facility] Start: 04-22-2023 End: 04-22-2023 Patient encounter procedure 04/22/2023 Office Visit Cardiovascular Medicine Trip Sosa MD [address] [place] [phone] [facility] Start: 10-01-2022 End: 10-01-2022 Patient encounter procedure 10/01/2022 Office Visit Cardiovascular Medicine Trip Sosa MD [address] [place] [phone] [facility] Start: 09-06-2022 [facility]MENT [facility] Start: 05-07-2022 Influenza vaccination [facility] Start: 03-12-2022 Bacteria identified in Urine by Culture Urine Culture [facility] Start: 02-16-2021 DIABETES SCREEN DIABETES SCREEN [facility] Start: 12-17-2020 DIABETES SCREEN DIABETES SCREEN [facility] Start: 2020 COLOGUARD (FIT-DNA) COLOGUARD (FIT-D NA) [facility] Start: 2020 Colonoscopy [facility] Start: 2020 COLORECTAL CANCER SCREENING COLORECTAL CANCER SCREENING [facility] Start: [address] COLONOGRAPHY [facility] Start: 2020 FECAL OCCULT BLOOD FECAL OCCULT BLOO D [facility] Start: 2020 LIPID SCREEN LIPID SCREEN [facility] Start: 2020 Screening for malign ant neoplasm of colon [facility] Start: 2020 SIGMOIDOSCOPY SIGMOIDOSCOPY [facility] Start: 2015 Mammography MAMMOGRAM [facility] Start: 2015 Screening for malign ant neoplasm of breast [facility] Start: 2015 Screening mammography MAMMOGRA M SCREENING DISCUSSION [facility] Start: 2005 HPV TESTING HPV TESTING [facility] Start: 2005 Screening for malign ant neoplasm of cervix HPV Testing [facility] Start: 1996 PAP TESTING PAP TESTING [facility] Start: 1996 Screening for malign ant neoplasm of cervix [facility] Start: 1994 Third diphtheria, te tanus and acellular pertussis (DTaP) vaccination TDAP (ADULT) [facility] Start: 1994 Urine microalbumin profile DTAP,TDAP ,TD (1 - Tdap) [facility] Start: 1993 HIV SCREENING HIV SCREENING [facility] Start: 1993 HIV screening HIV Screening [facility] Start: 1993 Tetanus vaccination TETANUS [facility] Start: 1990 HIV screening HIV SCREENING DISCUSSION [facility] Start: 1975 COVID-19 VACCINE (#1) COVID-19 VACCI NE (#1) [facility] Start: 1975 HEPATITIS B (1 of 3 - 3-dose series) HEPATITIS B (1 of 3 - 3-dose series) [facility] Start: 1975 Hepatitis C antibody , confirmatory test HEPATITIS C VIRUS SCREENING [facility] Start: 1975 Hepatitis C screening HEPATITI S C VIRUS SCREENING [facility] Start: 1975 Screening for malign ant neoplasm of colon [facility] Start: 1975 Tetanus vaccination TETANUS [facility] Bacteria identified in Urine by Culture [facility] Work Phone: End: 11-23-2024 MR Brain WO contrast MRI BRAIN WO IVCON Radiology Routine Vascular malformation Congenital vascular anomaly 1 Occurrences starting 10/25/2023 until 11/23/2024 [facility] Work Phone: Comment on above: 1 Occurrences starti ng 10/25/2023 until 11/23/2024 Patient Education Know your Meds [facility] Work Phone: Patient referral [facility] Work Phone: [place] Thyroid gland [facility] XR Lumbar spine 2 or 3 Views [facility] Immunizations Immunization Date Immunization Notes Care Provider Candy garcia 07-09-2016 hepatitis A and hepatitis B vaccine Jessica Lopez [facility] 02-04-2016 hepatitis A and hepatitis B vaccine Jessica Izaguirremetz [facility] 01-06-2016 hepatitis A and hepatitis B vaccine Jessica Izaguirremetz [facility] 01-06-2016 tetanus toxoid, reduced diphtheria toxoid, and acellular pertussis vaccine, adsorbed Jessicaapril Lopez [facility] 01-06-2016 typhoid vaccine, unspecified formulation Jessicaapril IzaguirreJohn [facility] NEGATED: Highlighted row has not occurred!11-03-2023 influenza virus vaccine, unspecified formulation Jessicaapril IzaguirreJohn [facility] Payers Date Payer Category Payer Unknown [id number] 1975 Unknown [id number] 2.16.84 [id number] 1975 Unknown [id number] 2.16.84 0.1.613838.3.579.2.593 1975 Unknown [id number] 2.16.84 0.1.326775.3.579.2.593 1975 Unknown [id number] 2.16.84 0.1.745890.3.579.2.593 1975 Unknown [id number] 2.16.84 0.1.950978.3.579.2.593 1975 Unknown [id number] 2.16.84 0.1.785843.3.579.2.593 1975 Unknown [id number] 2.16.84 0.1.492878.3.579.2.593 1975 Unknown [id number] 2.16.84 0.1.255338.3.579.2.593 1975 Unknown [id number] 2.16.8 40.1.315716.3.579.2.727 1975 Unknown [id number] 2.16.8 40.1.185500.3.579.2.727 1975 Unknown [id number] 2.16.8 40.1.794803.3.579.2.727 1975 Unknown [id number] 2.16.8 40.1.076869.3.579.2.727 1975 Unknown [id number] 2.16.8 40.1.891065.3.579.2.727 1975 Unknown [id number] 2.16.8 40.1.155822.3.579.2.727 1975 Unknown [id number] 2.16.84 0.1.334123.3.579.2.1259 1975 Unknown [id number] 2.16.84 0.1.927673.3.579.2.1259 1975 Unknown [id number] 2.16.84 0.1.458616.3.579.2.1259 1975 Unknown [id number] 2.16.84 0.1.765307.3.579.2.1259 1975 Unknown [id number] 2.16. 840.1.222938.3.579.2.594 1975 Unknown [id number] 2.16. 840.1.961774.3.579.2.594 1975 Unknown [id number] 2.16. [id number] 1975 Unknown [id number] 2.16. [id number] 1959 Unknown [id number] 2. [id number] Self-pay Self Pay [id number] Social History Date Type Detail Facility Tobacco smoking stat us NHIS Unknown if ever smoked [facility] Work Phone: Start: 1975 Sex Assigned At Female F [facility] Start: 06-21-2018 End: 05-05-2024 Sex Assigned At [facility] Start: 03-20-2021 End: 05-05-2024 Tobacco smoking status NHIS Never smoked tobacco [facility] Start: 03-20-2021 End: 05-05-2024 Tobacco use and exposure Smokeless tobacco non-user [facility] Start: 03-19-2022 End: 06-22-2024 Alcohol intake Current non-drinker of alcohol (finding) [facility] Start: 03-19-2022 End: 05-05-2024 Alcohol intake [facility] Start: 1975 Sex Assigned At Not on file [facility] Start: 09-21-2022 End: 10-01-2022 Exposure to SARS-CoV-2 (event) Not sure [facility] Start: 06-21-2018 Alcohol intake Not Asked Humberto Jones Tobacco smoking status Never [facility] Gender identity Identifies as fe male gender (finding) [facility] Start: 05-31-2024 End: 06-01-2024 Alcoholic beverage intake Lifetime non-drinker (finding) [facility] Healthcare Start: 10-05-2023 Alcohol Comment Caffeine intak e: 1-2 cups per day chocolate [facility] Healthcare Goals Date Patient Goal Desired Activity /State Functional Status Date Assessment Result Facility 12-20-2023 Functional Status N/A [facility] 05-04-2023 Functional Status N/A [facility] 01-13-2023 Functional Status N/A [facility] 12-28-2022 Functional Status N/A [facility] 12-21-2022 Functional Status N/A [facility] Clinical Notes 03-12-2022 to [...] conjunction with Dr. Sosa. Patient seen with PLANT UTILITIES ENGINEER I saw and personally examined this patient with the nurse practitioner. The patient complains of worsening shortness of breath with exertion and is compensated on examination. Results of CT angiogram are pending. She has microvascular CAD. We will continue the current treatment plan, as outlined in the PLANT UTILITIES ENGINEER note, and consider increasing amlodipine dose if [...] the clinic. documented in this encounter [facility] 06-22-2024 Instructions REINA Erickson - [...] M-F 8 to 4:30 ; office # [phone], option 6, then option 2. Guidelines for home management: 1. Continue to monitor weight first thing each morning. 2. Report to the CHF CLINIC ([phone]) any significant weight change. Remember that weight [...] to have labs/tests run outside of the [facility] and you do not hear from us 1-2 days after they are performed, you must call us to ensure we received the results. Office fax # [phone]. No news does not necessarily mean that your tests are normal, it could mean we did not get the results. For questions/updates: please provide your name with spelling, date of and question or update All calls are prioritized and responses researched, if possible, prior to calls being returned. Call Scheduling for any appointment/procedure verification or changes [phone], option 7 or [facility] at [phone], option 1. documented in this encounter [facility] 06-08-2024 History of Present illness Narrative [...] her thyroid functions. documented in this encounter [facility] 06-01-2024 History of Present illness Narrative Subjective [...] has any difficulties. documented in this encounter [facility] 05-24-2024 History of Present illness Narrative Subjective [...] office as scheduled documented in this encounter [facility] 05-05-2024 History of Present illness Narrative Subjective [...] 03/03/2019 Added automatically from request for surgery [id number] Family history of lupus erythematosus 05/21/2016 Family history of rheumatoid arthritis 05/21/2016 Fibromyalgia 05/21/2016 Heart murmur Heartburn 05/04/2024 Hypertension ([facility] Insomnia 05/04/2024 Intestinal metaplasia of gastric cardia 07/12/2019 Added automatically from request for surgery [id number] Irritable bowel syndrome Irritable bowel syndrome with both constipation and diarrhea 03/03/2019 Added automatically from request for surgery [id number] Joint stiffness of multiple sites 05/21/2016 Laryngopharyngeal reflux 05/04/2024 Left thyroid nodule ([facility]) 05/04/2024 Lightheadedness 05/04/2024 Localized swelling, mass and lump, head 05/04/2024 Lumbar pain 05/04/2024 Menstrual disorder 05/04/2024 Menstrual migraine ([facility]) 05/04/2024 Mixed irritable bowel syndrome 05/04/2024 Myalgia 05/21/2016 Nausea 05/04/2024 Numbness and tingling sensation of skin 05/21/2016 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 Recommend thyroid function testing prior to surgery intervention. documented in this encounter [facility] 04-19-2024 Hospital Discharge instructions Ambulatory OrdersReferral to ENT Time Frame: 04/19/24, Location: [facility] Work Phone: 12-03-2023 Hospital Discharge instructions Follow Up Care 12/03/2023 15:41:19 With:Luis CLINE, Viral Garcia [facility], [facility] Address: [address] [place] [address], [facility] [address] [address] [phone] When:3 months [facility] 12-02-2023 History of Present [...] conjunction with Dr. Sosa. Patient seen with PLANT UTILITIES ENGINEER I saw and personally examined this patient with the nurse practitioner. The patient is generally doing well and is compensated on examination. Her complaints seem referable to the gastrointestinal and skeletal muscle systems. 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 Otherwise, we will continue the current treatment plan, as outlined in the PLANT UTILITIES ENGINEER note. The plan was developed mutually at the time of the clinic visit. The nurse practitioner and I spoke with the patient and provided written and verbal instructions for the patient. The note has been reviewed and I agree with the assessment and plan. Follow up arrangements were made prior to the patient being discharged from the clinic. documented in this encounter [facility] 12-02-2023 Instructions REINA Erickson - 12/02/2023 2:15 PM EDT The following instructions were given today: -follow up with rheumatology and gastroenterology Your after visit summary (AVS) is viewable in [facility]. Call RN if you have cardiac questions/concerns M-F 8 to 4:30 ; office # [phone], option 6, then option 2. Guidelines for home management: 1. Continue to monitor weight first thing each morning. 2. Report to the CHF CLINIC ([phone]) any significant weight change. Remember that weight [...] to have labs/tests run outside of the [facility] and you do not hear from us 1-2 days after they are performed, you must call us to ensure we received the results. Office fax # [phone]. No news does not necessarily mean that your tests are normal, it could mean we did not get the results. For questions/updates: please provide your name with spelling, date of and question or update All calls are prioritized and responses researched, if possible, prior to calls being returned. Call Scheduling for any appointment/procedure verification or changes [phone], option 7 or [facility] Heart Schedulers at [phone], option 1. documented in this encounter [facility] 10-29-2023 Miscellaneous Notes CV PHONE Name of caller : Avis Relationship to patient : [facility] If not self Will need patient permission to release results or disclose health information with called documented in . Patient identified by Name and Date of . ( Marianna Ashley, 1975). Yes Number to return call [phone] Reason for Call: Avis is calling from [facility] to obtain notes and information for prior Auth of MRI WO IVCON. Sent: Thank you calling [facility]. You will receive a return call within 48 hours ( or 2 business days if close to the weekend). If you feel that this is an urgent issue and needs immediate attention, it is recommended that you contact your primary care provider office or proceed to your nearest Urgent Care Center of Emergency Room ED for evaluation/treatment. documented in this encounter [facility] 10-25-2023 Miscellaneous Notes Called patient. She also [...] [place]re, 1975). Yes Number to return call [phone] Reason for Call: Symptoms Call: Symptoms: headache [...] something else going on. Thank you calling [facility]. You will receive a return call within 48 hours ( or 2 business days if close to the weekend). If you feel that this is an urgent issue and needs immediate attention, it is recommended that you contact your primary care provider office or proceed to your nearest Urgent Care Center of Emergency Room ED for evaluation/treatment. documented in this encounter [facility] 05-04-2023 Hospital Discharge instructions Patient Education 05/04/2023 [...] grapefruit, pineapple, and jeff. Vegetables Deep-fried vegetables. Syrian fries. Any vegetables prepared with added fat. [...] provider. Document Revised: 03/03/2021 Document Reviewed: 03/03/2021 AlloCure Patient Education 2022 [employer]. Follow Up Care 01/28/2023 14:16:26 With:Jessica Lopez CNP Address: When:6 months [facility] 04-22-2023 History of Present [...] week and HR fluctuating/palpitatations (refer to 03/31/23 [employer] message for detailed symptoms). Continues to go [...] conjunction with Dr. Sosa. Patient seen with PLANT UTILITIES ENGINEER I saw and personally examined this patient with the nurse practitioner. The patient complains of increased palpitations.Both her resting and exercise heart rates have risen over the past several weeks.She is compensated on examination. We will increase the dose of carvedilol and otherwise continue the current treatment plan, as outlined in the PLANT UTILITIES ENGINEER note. The plan was developed mutually at the time of the clinic visit. The nurse practitioner and I spoke with the patient and provided written and verbal instructions for the patient. The note has been reviewed and I agree with the assessment and plan. Follow up arrangements were made prior to the patient being discharged from the clinic. documented in this encounter [facility] 04-22-2023 Instructions Cecilia Spencer RN - 04/22/2023 3:45 PM EDT The following instructions were given today: -Increase Coreg to 1.5 tablets (37.5mg) twice a day with food. -Follow up with Dr. Sosa in 6 months. Your after visit summary (AVS) is viewable in [facility]. Call RN if you have cardiac questions/concerns M-F 8 to 4:30 ; office # [phone], option 6, then option 2. Guidelines for home management: 1. Continue to monitor weight first thing each morning. 2. Report to the CHF CLINIC ([phone]) any significant weight change. Remember that weight [...] to have labs/tests run outside of the [facility] and you do not hear from us 1-2 days after they are performed, you must call us to ensure we received the results. Office fax # [phone]. No news does not necessarily mean that your tests are normal, it could mean we did not get the results. For questions/updates: please provide your name with spelling, date of and question or update All calls are prioritized and responses researched, if possible, prior to calls being returned. Call Scheduling for any appointment/procedure verification or changes [phone], option 7 or [facility] Heart Schedulers at [phone], option 1. documented in this encounter [facility] 04-14-2023 Miscellaneous Notes Called patient. She [...] Ramirez, 1975). Yes Number to return call [phone] Reason for Call: Patient Question/Update: Marianna is calling to say she developed an allergy to contrast and cannot have MRI W/WO. Also she would like to know if she can have it done locally. Please call. Thank you calling [facility]. You will receive a return call within 48 hours ( or 2 business days if close to the weekend). If you feel that this is an urgent issue and needs immediate attention, it is recommended that you contact your primary care provider office or proceed to your nearest Urgent Care Center of Emergency Room ED for evaluation/treatment. documented in this encounter [facility] 01-13-2023 Hospital Discharge instructions Patient Education 01/13/2023 [...] Follow these instructions at home: Medicines Take fhrh-lyx-lspanxl and prescription medicines only as told by your health care provider. If you were prescribed an antibiotic medicine, take it as told by your health care provider. Do not stop taking the antibiotic even if you start to feel better. Eating and drinking Make any diet changes as told by your health care provider. Work with a diet and nutritional services cook (dietitian) to create an eating plan that [...] provider. Document Revised: 04/12/2021 Document Reviewed: 04/12/2021 AlloCure Patient Education 2022 [employer]. Follow Up Care 01/07/2023 14:24:39 With:Jessica Lopez CNP Address: When:3 months [facility] 12-30-2022 Note [id number] [facility] 12-28-2022 Evaluation + Plan note Extrac vladimir from: Title:CSB post op Author:Frank Tovar MD Date:12/28/22 Plan Transfer/Discharge: Transfer/Discharge Discharge when meets criteria ( To home ). Extracted from: Title:CSB GA Author:Frank Tovar MD Date:12/28/22 Plan [place] [employer] Anesthesiologists (ASA) physical status classification: Class II. Anesthetic Preoperative Plan: Anesthesia General. [facility]04-24-2023 Hospital Discharge instructions Patient Education 12/28/2022 [...] including vitamins, herbs, eye drops, creams, and pmom-tkg-mgqiibo medicines. Any problems you or family members [...] provider tells you to take them. ?Taking tzzc-mym-zruyshr medicines, vitamins, herbs, and supplements. Follow instructions [...] home. Follow these instructions at home: Take lynn-qwr-ahbxmen and prescription medicines only as told by [...] provider. Document Revised: 01/08/2021 Document Reviewed: 01/08/2021 AlloCure Patient Education 2022 [employer]. 12/28/2022 10:55:03 Endoscopy, Care After Procedure [facility] Endoscopy Care After Procedure Please read [...] Document Re-Released: 02/14/2007 ExitCare Patient Information 2009 [employer] Follow Up Care 12/21/2022 13:31:10 With:Dove MONSERRAT Address: [address] [place] [address] [facility] (1) When:1 to 2 weeks Comments:Call for any problems. [facility]04-17-2023 Hospital Discharge instructions Patient Education 12/21/2022 [...] per serving. Talk with a diet and nutritional services cook (dietitian) if you have questions about specific [...] Bulgur wheat. Millet. Quinoa. Bran muffins. Popcorn. [place] wafer crackers. Meats and other proteins [place], kidney, and aparicio beans. Soybeans. Split peas. [...] Cream cheese. Sour cream. Fats and oils [place]. Beverages Soft drinks. Other foods Cakes and [...] 08/23/2006 Document Revised: 06/27/2018 Document Reviewed: 06/27/2018 AlloCure Patient Education 2020 [employer]. Follow Up Care 12/17/2022 13:25:02 With:Jessica Lopez CNP Address: When:1 month [facility] [phone] Telephone encounter Note* Telephone Encounter - REINA Erickson - 11/12/2022 8:39 AM EST Send [employer] message to Marianna for update, K a little low at 3.5. [facility]03-09-2023 Miscellaneous Notes* Telephone Encounter - REINA Erickson - 11/12/2022 8:39 AM EST Send [employer] message to Marianna for update, K a little low at 3.5. * Telephone Encounter - Kia Colin RN - 11/06/2022 3:12 PM EST 11/05/22 faxed lab results from [facility] entered and copy sent to [facility]. Fwd to Dr Sosa and EMANI. [facility] Note* Telephone Encounter - Kia Colin RN - 11/06/2022 3:12 PM EST 11/05/22 faxed lab results from [facility] entered and copy sent to [facility]. Fwd to Dr Sosa and EMANI. [facility]01-26-2023 History of Present illness Narrative* Justyna Heller, ELECTRICAL LINE WORKER-TICKET WRITER - 10/01/2022 2:45 PM EST History of [...] a little bit. Really enjoyed going to [employer] for a trip in a RV. On [...] conjunction with Dr. Sosa. [facility]* Patient Instructions* Janine Fu RN [...] M-F 8 to 4:30 ; office # [phone], option 6, then option 2. Guidelines for home management: 1. Continue to monitor weight first thing each morning. 2. Report to the CHF CLINIC ([phone]) any significant weight change. Remember that weight [...] to have labs/tests run outside of the [facility] and you do not hear from us1-2 days after they are performed, you must call us to ensure we received the results. Office fax #[phone]. No news does not necessarily mean that your tests are normal, it could mean we did not get the results. For questions/updates: please provide your name with spelling, date of and question or update All calls are prioritized and responses researched, if possible, prior to calls being returned. Call Scheduling for any appointment/procedure verification or changes [phone], option 7 or [facility] [phone], option 1. [facility] note * Encounter Date [...] understanding and is agreeable with treatment plan [employer] Other 07-14-2022 Instructions* Patient Instructions* Janine Fu [...] M-F 8 to 4:30 ; office # [phone], option 6, then option 2. Guidelines for home management: 1. Continue to monitor weight first thing each morning. 2. Report to the CHF CLINIC ([phone]) any significant weight change. Remember that weight [...] to have labs/tests run outside of the [facility] and you do not hear from us1-2 days after they are performed, you must call us to ensure we received the results. Office fax #[phone]. No news does not necessarily mean that your tests are normal, it could mean we did not get the results. For questions/updates: please provide your name with spelling, date of and question or update All calls are prioritized and responses researched, if possible, prior to calls being returned. Call Scheduling for any appointment/procedure verification or changes [phone], option 7 or [facility] [phone], option 1. [facility] History of Present illness Narrative* Justyna Heller, ELECTRICAL LINE WORKER-TICKET WRITER - 03/19/2022 3:15 PM EDT History of [...] scale back a little bit. Going to [employer] for a trip in a RV. Stillhas [...] 03/19/2022 3:15 PM EDT Patient seen with PLANT UTILITIES ENGINEER I saw and personally examined this patient [...] thecurrent treatment plan, as outlined in the PLANT UTILITIES ENGINEER note. The plan was developed mutually at the time of the clinic visit. The nurse practitioner and I spoke with the patient and provided written and verbal instructions for the patient. The note has been reviewed and I agree with the assessment and plan. Follow up arrangements were made prior to the patient being discharged from the clinic. [facility] note * Encounter Date [...] Follow up with primary care provider or burnisher if no improvement of symptoms. [employer] Other Evaluation + Plan note Future Appointments Appointment Date:12/28/2022 10:35:00 AM Scheduled Provider: Location:[facility] Appointment Type:Surgery FT Diagnostic Tests Pending * Enteric Panel by PCR 12/21/22 * Clostridium Difficile PCR 12/21/22 * Fecal WBC Lactoferrin 12/21/22 * O & P Exam, Routine 12/21/22 * Giardia lamblia, Direct Detection EIA 12/21/22 * CBC w/ Auto Diff 12/21/22 * Comprehensive Metabolic Panel 12/21/22 [facility] Evaluation + Plan note Future Appointments Appointment Date:11/04/2023 12:20:00 PM Scheduled Provider:Jessica Lopez CNP Location:[facility] App[facility]ment Type:[facility] Follow Up [facility] Evaluation noteNo assessment information available [facility] Work Phone: Evaluation note* 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 Chronic systolic heart failure [facility] [employer] Other Evaluation note* 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 Palpitations [facility] Diagnosis Other cardiomyopathy- Primary documented in [facility] encounter [facility] note* Diagnosis 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, unspecified site documented in this encounter [facility] note* Diagnosis Other cardiomyopathy- Primary Palpitations [facility]* 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 documented in this encounter [facility] note* Diagnosis Cardiac microvascular disease- Primary Other and unspecified angina pectoris [facility]* Diagnosis Onset Date Resolution Status Arthralgia acute Family history of lupus acut e Lumbar pain acute [facility] Work Phone: Evaluation note* Diagnosis Onset Date Resolution Status Swelling, mass, or lump in head and neck acute [facility] Work Phone: Evaluation note* Diagnosis Follicular thyroid carcinoma (CMS/HCC)- Primary Malignant neoplasm of thyroid gland documented in this encounter [facility] HealthcareEvaluation note* Diagnosis Cardiac microvascular disease- Primary Other and unspecified angina pectoris [facility]* 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 Atypical chest pain Other chest pain [facility] Diagnosis Thyroid nodule (CMS/HCC)- Primary Nontoxic uninodular goiter Globus sensation Gastrointestinal malfunction arising from mental factors documented in this encounter [facility] HealthcareEvaluation note* Diagnosis Thyroid nodule (CMS/HCC)- Primary Nontoxic uninodular goiter documented in this encounter [facility] HealthcareEvaluation note* Diagnosis Thyroid nodule (CMS/HCC)- Primary Nontoxic uninodular goiter Follicular thyroid carcinoma (CMS/HCC) Malignant neoplasm of thyroid gland documented in this encounter [facility] HealthcareHistory general Narrative - Reported* Type Description Date Medical History cardiomyopathy [facility] [employer] Other Hospital course Narrative No data available for this section [facility] Hospital Discharge instructions No data available for this section [facility] Hospital Discharge instructionsAmbulatory Orders* Referral to Pain Management Time Frame: 12/10/23, Location: None Selected * Referral to Rheumatology Time Frame: 12/10/23, Location: None Selected [facility] Work Phone: Hospital Discharge instructions Additional [...] office to follow up in one week. [][facility] Work Phone: Progress note No data available for this section [facility] Reason for Referral Specialty Diagnoses / Procedures Referred By Contac t Referred To Contact Diagnoses Cardiac microvascular disease Atypical chest pain Procedures CT ANGIO CARDIAC WITH CORONARY ARTERIES CHG CTA HRT CORNRY ART/BYPASS GRFTS CONTRST 3D POST Justyna Heller, ELECTRICAL LINE WORKER-TICKET WRITER [address] [place] [address] Referral ID Status Reason Start Date Expiration Date Visits Re quested Visits Authorized [id number] Closed 05/18/2024 06/12/2025 1 1 Specialty Diagnoses / Procedures Referred By Fariha t Referred To Contact MR IMAGING Diagnoses Vascular malformation Congenital vascular anomaly Procedures MRI BRAIN WO IVCON MRI BRAIN BRAIN STEM W/O CONTRAST MATERIAL Jyoti Aguilera ELECTRICAL LINE WORKER.TICKET WRITER [address] [place] [address] Mr Imaging [facility] Referral ID Status Reason Start Date Expiration Date Visits Requested Visits Authorized [id number] Pending Review Auto-Generat ed Referral 10/25/2023 11/23/2024 1 1 Specialty Diagnoses / Procedures Referred By Fariha t Referred To Contact MR IMAGING Diagnoses Developmental venous anomaly Procedures MRI BRAIN WO/W IVCON MRI BRAIN BRAIN STEM W/O W/CONTRAST MATERIAL Ruth Ramirez PA-C [address] [place] [address] Mr Imaging Referral ID Status Reason Start Date Expiration Date Visits Requested Visits Authorized [id number] Pending Review Auto-Generat ed Referral 06/06/2023 12/14/2023 1 1 Specialty Diagnoses / Procedures Referred By Fariha t Referred To Contact Diagnoses Cardiac microvascular disease Chronic systolic heart failure Procedures ECHOCARDIOGRAM CT ECHO HEART XTHORACIC,COMPLETE W DOPPLER Justyna Heller, ELECTRICAL LINE WORKER-TICKET WRITER [address] [place] [address] Referral ID Status Reason Start Date Expiration Date Visits Re quested Visits Authorized [id number] Closed 11/27/2021 12/22/2022 1 1 Summary Purpose [...] Status Dates HAYLIE PooleC Attending Provider Active Hybrid Car Mechanic Relationship Specialty Start Date End Date Cj Lazo MD [address] [place] [address] PCP - General 02/26/11 Hybrid Car Mechanic Relationship Specialty Start Date End Date Cj Lazo MD [address] [place] [address] PCP - General 02/26/11 Hybrid Car Mechanic Relationship Specialty Start Date End Date Cj Lazo MD [address] [place] [address] PCP - General 02/26/11 Hybrid Car Mechanic Relationship Specialty Start Date End Date Cj Lazo MD [address] [place] [phone] PCP - General Family Medicine 01/13/16 Hybrid Car Mechanic Relationship Specialty Start Date End Date Cj Lazo MD [address] [place] [phone] PCP - General Family Medicine 01/13/16 Hybrid Car Mechanic Relationship Specialty Start Date End Date Cj Lazo MD [address] [facility] [place] [address] PCP - General 02/26/11 Hybrid Car Mechanic Relationship Specialty Start Date End Date Cj Lazo MD [address] [place] [facility] [place] [address] PCP - General Family Medicine 01/13/16 Hybrid Car Mechanic Relationship Specialty Start Date End Date Cj Lazo MD [address] [place] [facility] [address] PCP - General Family Medicine 01/13/16 Hybrid Car Mechanic Relationship Specialty Start Date End Date Cj Lazo MD [address] [place] [facility] [phone] PCP - General Family Medicine 01/13/16 Hybrid Car Mechanic Relationship Specialty Start Date End Date Cj Lazo MD [address] [facility] [place], [place] [phone] PCP - General 02/26/11 Team Status: Active [...] End: April 13, 2024 Deja Pack APRN PLANT UTILITIES ENGINEER-C Attending Provider Act gabriella Start: April 13, [...] May 24, 2024 End: May 24, 2024 Hybrid Car Mechanic Relationship Specialty Start Date End Date Cj Lazo MD [address] [place] [phone] PCP - General Family Medicine 06/01/24 Ever Woodward DO [address] [place] [address] Otolaryngology 06/01/24 Deja Pack NP [address] [place] [address] Referring Physician Family Medicine 06/01/24 Hybrid Car Mechanic Relationship Specialty Start Date End Date Cj Lazo MD [address] [place] [phone] PCP - General Family Medicine 06/01/24 Ever Woodward DO [address] [place] [address] Otolaryngology 06/01/24 Deja Pack NP [address] [place] [address] Referring Physician Family Medicine 06/01/24 Hybrid Car Mechanic Relationship Specialty Start Date End Date Cj Lazo MD [address] [facility] [place] [address] PCP - General 02/26/11 Hybrid Car Mechanic Relationship Specialty Start Date End Date Cj Lazo MD [address] [facility] [place] [address] PCP - General 02/26/11 Hybrid Car Mechanic Relationship Specialty Start Date End Date Unallocated, Henrique Greene MD [address] [place] [address] PCP - General Family Medicine 10/07/23 Hybrid Car Mechanic Relationship Specialty Start Date End Date Unallocated, Henrique Greene MD [address] [place] [address] PCP - General Family Medicine 10/07/23 Hybrid Car Mechanic Relationship Specialty Start Date End Date Unallocated, Henrique Greene MD [address] [place] [address] PCP - General Family Medicine 10/07/23 Hybrid Car Mechanic Relationship Specialty Start Date End Date Unallocated, Henrique Greene MD [address] [place] [address] PCP - General Family Medicine 10/07/23 Hybrid Car Mechanic Relationship Specialty Start Date End Date Cj Lazo MD [address] [facility] [place] [address] PCP - General Family Medicine 06/01/24 Ever Woodward DO [address] [place] [address] Otolaryngology 06/01/24 Deja Pack NP [address] [facility] [place] [address] Referring Physician Family Medicine 06/01/24 Hybrid Car Mechanic Relationship Specialty Start Date End Date Unallocated, Nompradeep Provider, [address] [place] [address] PCP - General Family Medicine 10/07/23 Goals [...] disease Chronic systolic heart failure Procedures ECHOCARDIOGRAM CT ECHO HEART XTHORACIC,COMPLETE W DOPPLER Justyna Heller, ELECTRICAL LINE WORKER-TICKET WRITER [address] [place] [address] Referral ID Status Reason Start Date Expiration Date Visits Re quested Visits Authorized [id number] Closed 11/27/2021 12/22/2022 1 1 Reason Comments [...] ART/BYPASS GRFTS CONTRST 3D POST Justyna Heller, ELECTRICAL LINE WORKER-TICKET WRITER [address] [place] [address] Referral ID Status Reason Start Date Expiration Date Visits Re quested Visits Authorized [id number] Closed 05/18/2024 06/12/2025 1 1 Reason Comments [...] or prosecute any alcohol or drug abuse patient.[facility] the event this information is protected by the Federal Confidentiality of Alcohol and Drug Abuse Patient Records regulations: The Federal rules restrict any use of the information to criminally investigate or prosecute any alcohol or drug abuse patient.[facility] the event this information is protected by the Federal Confidentiality of Alcohol and Drug Abuse Patient Records regulations: The Federal rules restrict any use of the information to criminally investigate or prosecute any alcohol or drug abuse patient.[facility] the event this information is protected by the Federal Confidentiality of Alcohol and Drug Abuse Patient Records regulations: The Federal rules restrict any use of the information to criminally investigate or prosecute any alcohol or drug abuse patient.[facility] the event this information is protected by the Federal Confidentiality of Alcohol and Drug Abuse Patient Records regulations: The Federal rules restrict any use of the information to criminally investigate or prosecute any alcohol or drug abuse patient.[facility] INFORMATION SOURCE (unrecogn ized section and content) DATE CREATED AUTHOR 01/01/2023 [facility] [facility] DATE CREATED AUTHOR AUTHOR'S ORGANIZ ATION 11/15/2023 [facility] DATE CREATED AUTHOR AUTHOR'S ORGANIZ ATION 12/21/2023 [facility] DATE CREATED AUTHOR AUTHOR'S ORGANIZ ATION 05/31/2024 [facility] DATE CREATED AUTHOR AUTHOR'S ORGANIZ ATION 06/10/[address] [facility] dical [facility] DATE CREATED AUTHOR AUTHOR'S ORGANIZ ATION 06/29/2024 [facility] FOR RECORDS PERTAINING TO PATIENTS WHO [...] BE BASED ON THE PRIMARY CLINICAL RECORDS. [employer] provides no warranty or guarantee of the accuracy or completeness of information in this document.
[2024-10-31 10:53] LABS: Estimated Average Glucose 100 mg/dL; Glycohemoglobin A1C 5.1 % (4.5-6.2)
== END 2024-10-31 07:09 | disposition home or self-care (01) ==
LOC: US 07:09
PROVIDERS: PCP Family Medicine; Visit Provider Family Medicine
DX: H35.62 Retinal hemorrhage, left eye (principal)
CPT/HCPCS: 36415; 83036; 93880

== ENCOUNTER 2024-12-06 16:04 | Outpatient (OUT) | payer OTHER, SELFPAY ==
[2024-12-06 16:44] LABS: Basophils Percent Auto 0.3 % (0.2-2.0); Eosinophils Absolute Auto 0.1 10^3/uL (0.0-0.7); Eosinophils Percent Auto 1.3 % (0.9-7.0); Hematocrit 36.7 % (36.0-48.0); Hemoglobin 12.9 g/dL (12.0-16.0); Immature Granulocytes Abs Auto 0.02 10^3/uL (0.00-0.03); Immature Granulocytes Pct Auto 0.3 % (0.0-0.5); Lymphocytes Absolute Auto 2.1 10^3/uL (1.2-3.8); Lymphocytes Percent Auto 29.7 % (20.5-60.0); Mean Corpuscular HGB Conc 35.1 g/dL (29.9-35.2); Mean Corpuscular Hemoglobin 31.2 pg (26.7-34.0); Mean Corpuscular Volume 88.9 fL (81.0-99.0); Mean Platelet Volume 9.7 fL (9.5-13.5); Monocytes Absolute Auto 0.6 10^3/uL (0.3-0.8); Monocytes Percent Auto 8.7 % (1.7-12.0); Neutrophils Absolute Auto 4.1 10^3/uL (1.4-6.5); Neutrophils Percent Auto 59.7 % (43.0-75.0); Platelet Count 285 10^3/uL (150-450); Red Blood Count 4.13 10^6/uL (4.20-5.40); Red Cell Distribution Width 11.8 % (11.0-15.0); White Blood Count 6.9 10^3/uL (4.0-11.0)
[2024-12-06 17:13] LABS: Alanine Aminotransferase 19 U/L (14-59); Albumin Globulin Ratio 0.9; Albumin Level 3.8 g/dL (3.4-5.0); Alkaline Phosphatase 55 U/L (46-116); Anion Gap 9.7; Aspartate Amino Transferase 19 U/L (15-37); BUN Creatinine Ratio 14.3; Bilirubin Total 0.2 mg/dL (0.2-1.0); Carbon Dioxide 29.1 mmol/L (21.0-32.0); Chloride 103 mmol/L (98-107); Estimated GFR (African America >60 (>=60 mL/min/1.73m^2); Estimated GFR (Non-African Ame >60 (>=60 mL/min/1.73m^2); Glucose 92 mg/dL (74-106); Potassium 3.8 mmol/L (3.5-5.1); Sodium 138 mmol/L (136-145); Total Protein 7.8 g/dL (6.4-8.2)
[2024-12-08 05:07] LABS: Transferrin 288 mg/dL (192-364)
== END 2024-12-06 16:05 | disposition home or self-care (01) ==
LOC: LAB 16:04
PROVIDERS: PCP Family Medicine
DX: R00.2 Palpitations (principal); R07.89 Other chest pain; R53.83 Other fatigue
CPT/HCPCS: 36415; 80053; 82728; 83540; 83550; 84443; 84466; 85025

== ENCOUNTER 2025-01-19 08:57 | Outpatient (OUT) | payer OTHER, SELFPAY ==
--- NOTE | 2025-01-19 09:00 | RT_ITS ---
[facility] Test Date: 2025-01-19 Pat Name: SUNSHINE RAMIREZ Department: Room: - Gender: Female Photo Tube Assembler: Magui Dye RRT : 1975 Requested By: [id number] Order Number: [id number] Reading MD: Shai Lemus Interpretive Statements Pulmonary function testing was completed according to ATS criteria. Findings were considered accurate and reproducible, with exception of DLCO which did not meet ATS standards. Both pre- and post-bronchodilator values utilized for spirometry. Spirometry (based on pre-bronchodilator values): -FEV1/FVC: Normal @ 85% -FEV1: Normal @ 93% -FVC: Normal @ 87% -There is no significant bronchodilator response. Lung volumes by plethysmography: -RV: Normal @ 92% -TLC: Normal @ 96% Diffusion capacity: -DLCO: Normal @ 96% when corrected for Hb 12.9g/dL Impressions: -Normal PFT. If asthma remains in the differential, may consider methacholine challenge testing. Clinical correlation required. Electronically Signed On 01-22-2025 11:43:02 EDT by Shai Lemus
[2025-01-19] MEDS: ALBUTEROL SULFATE 2.5 MG/3 ML VIAL NEB IH (09:34)
== END 2025-01-19 08:58 | disposition home or self-care (01) ==
LOC: CARD 08:58
PROVIDERS: PCP Family Medicine
DX: R06.09 Other forms of dyspnea (principal)
CPT/HCPCS: 94060; 94726; 94729

== ENCOUNTER 2025-06-18 16:36 | Outpatient (OUT) | payer OTHER, SELFPAY ==
--- OUTSIDE RECORDS SUMMARY | 2025-06-18 16:40 | XMS_ITS | Encounter Summary ---
Author Organization [facility] Address [address] [facility] [place] [address] Care Team Providers Care Law Secretary Name Role Phone Unallocated, Noms Provider Primary Care Provi yana Natalie Ya MD Primary Care Provider [phone] Ever Nelson DO Unavailable [phone] Deja Pack ADMINISTRATIVE OFFICE ASSISTANT Unavailable [phone] Encounter Details Date Type Department Care Team (Late st Contact Info) Description 12/21/2018 Abstract [facility] [address] [place] [address] Kia Haines, [facility] [address] [place] [address] Social History Tobacco Use Types Packs/Day Years Used Date Smoking Tobacco: Never Assessed Comments Unknown Sex and Gender Information Value Date Recorded Sex Assigned at Not on file Legal Sex Female 8:05 PM EDT Gender Identity Not on file Sexual Orientation Not on file documented as of this encounter Plan of Treatment Upcoming Encounters Date Type Department Care Team (Late st Contact Info) Description 07/02/2025 9:00 AM EDT Office Visit [facility] Otolaryngology [address] [place] [address] Ever Nelson DO [address] [place] [address] 11/21/2025 9:45 AM EDT Office Visit ERICH HOWARD [address] [place] [phone] Ilana Kumari DO [address] [place] [address] documented as of this encounter Visit Diagnoses Not on filedocumented in this encounter Care Teams Law Secretary Relationship Specialty Start Date End Date Unallocated, Erich Greene MD [address] [place] [address] PCP - General Family Medicine 10/07/23 05/31/24 Natalie Ya MD [address] [place] [phone] PCP - General Family Medicine 06/01/24 Ever Nelson DO [address] [place] [address] Otolaryngology 06/01/24 Deja Pack NP [address] [place] [address] Referring Physician Family Medicine 06/01/24 documented as of this encounter
--- OUTSIDE RECORDS SUMMARY | 2025-06-18 16:40 | XMS_ITS | Encounter Summary ---
Author Organization [facility] tem Address [id number] [address] [place] [address] Care Team Providers Care Blindstitch Machine Operator Name Role Phone Natalie Ya MD Primary Care Provider [phone] Encounter Details Date Type Department Care Team (Late st Contact Info) Description 02/22/2025 Telephone Dex Adult Endocrinology, A Department of [facility] [address] [address] Cat Egan LPN Social History Tobacco Use Types Packs/Day Years Used Date Smoking Tobacco: Never Smokeless Tobacco: Never Alcohol Use Standard Drinks/Week Comments Never 0 (1 standard drink = 0.6 oz pur e alcohol) Hunger Screening Answer Date Recorded Within the past 12 months we worried whether our food would run out before we got money to buy more. Never True 11/29/2024 Within the past 12 months th e food we bought just didn't last and we didn't have money to get more. Never True 11/29/2024 Comments Unknown Sex and Gender Information Value Date Recorded Sex Assigned at Not on file Legal Sex Female 11:29 AM EDT Gender Identity Not on file Sexual Orientation Not on file documented as of this encounter Miscellaneous Notes * Telephone Encounter - Cat Egan LPN - 02/22/2025 2:37 PM EDT I put a report on your desk for her. Im almost positive you've already seen it but I wanted to makesure because it wasn't scanned in. * Telephone Encounter - Ivon Mcmahon MD - 02/22/2025 2:37 PM EDT Please scan the results into her chart documented in this encounter Plan of Treatment Not on file documented as of this encounter Visit Diagnoses Not on filedocumented in this encounter Care Teams Blindstitch Machine Operator Relationship Specialty Start Date End Date Natalie Ya MD [address] [place] [address] PCP - General Family Medicine 11/29/24 documented as of this encounter
--- OUTSIDE RECORDS SUMMARY | 2025-06-18 16:40 | XMS_ITS | Encounter Summary ---
Author Organization [facility] Address [address] [place] [address] Care Team Providers Care Rn Behavioral Health Name Role Phone Unallocated, Noms Provider Primary Care Provi yana Natalie Ya MD Primary Care Provider [phone] Ever Nelson DO Unavailable [phone] Deja Pack FRAMING SPECIALIST Unavailable [phone] Encounter Details Date Type Department Care Team (Late st Contact Info) Description 05/17/2024 External Result Encounter [facility] External Department Unsolicited Ever Nelson DO [address] [place] [address] Social History Tobacco Use Types Packs/Day Years Used Date Smoking Tobacco: Never Smokeless Tobacco: Never Alcohol Use Standard Drinks/Week Comments Never 0 (1 standard drink = 0.6 oz pure alcohol) Caffeine intake: 1-2 cups per day chocolate Comments Unknown Sex and Gender Information Value Date Recorded Sex Assigned at Not on file Legal Sex Female 8:05 PM EDT Gender Identity Not on file Sexual Orientation Not on file documented as of this encounter Plan of Treatment Upcoming Encounters Date Type Department Care Team (Late st Contact Info) Description 07/02/2025 9:00 AM EDT Office Visit HENRIQUE Mckeon Otolaryngology [address] [place] [address] Ever Nelson, [address] [facility] [place] [address] 11/21/2025 9:45 AM EDT Office Visit HENRIQUE Mckeon ANITA [address] [place] [address] Ilana Kumari DO [address] [place] [address] documented as of this encounter Procedures Procedure Name Priority Date/Time Associated Diagnosis Comments ECG 12-LEAD 05/17/2024 8:10 AM EDT documented in this encounter Results * ECG 12 lead (05/17/2024 8:10 AM EDT) 05/17/2024 8:10 AM EDT [facility] - 05/18/2024 12:41 AM EDT [facility] Main [address] [address] Electrocardiograph Report Signed Patient: Marianna Whitney MR#: [id number] : 1975 Acct:[id number] Age/Sex: 49 / F ADM Date: 05/17/24 Loc: Room: Type: [facility] Attending Dr: Ever Nelson DO Ordering Provider: Ever Nelson DO Date of Service: 05/17/2407/30/759 ECG/ECG 12 [...] previous ECGs available Confirmed by Katlin Dean ([id number]) on 05/18/2024 12:40:53 AM Referred By: Electronically Signed By: Katlin Dean Transcribed By: MUS Signed By Katlin Dean MD 4 0040 Procedure Note Katlin Dean MD - 05/18/2024 [facility] Main [address] [address] Electrocardiograph Report Signed Patient: Marianna Whitney MMR#: [id number] : 1975Acct:[id number] Age/Sex: 49 / FADM Date: 05/17/24 Loc: Room:Type: [facility] Attending Dr: Ever Nelson DO Ordering Provider: Ever Nelson DO Date of Service: 05/17/2407/30/759 ECG/ECG 12 [...] previous ECGs available Confirmed by Katlin Dean ([id number]) on 05/18/2024 12:40:53 AM Referred By: Electronically Signed By: Katlin Dean Transcribed By: MUS Signed By Katlin Dean MD 4 0040 us Ever Nelson DO ECG ORDERABLES Final Resul t [address] [address], documented in this encounter Visit Diagnoses Not on filedocumented in this encounter Care Teams Rn Behavioral Health Relationship Specialty Start Date End Date Unallocated, Noms Provider, [address] [place] [address] PCP - General Family Medicine 10/07/23 05/31/24 Natalie Ya MD [address] [place] [address] PCP - General Family Medicine 06/01/24 Ever Neslon DO [address] [place] [address] Otolaryngology 06/01/24 Deja Pack NP [address] [place] [address] Referring Physician Family Medicine 06/01/24 documented as of this encounter
--- OUTSIDE RECORDS SUMMARY | 2025-06-18 16:40 | XMS_ITS | Encounter Summary ---
Author Organization [facility] Address [address] [place] [address] Care Team Providers Care Airline Pilot/First Officer Name Role Phone Natalie Ya MD Primary Care Provider [phone] Encounter Details Date Type Department Care Team (Late st Contact Info) Description 03/03/2012 Orders Only Cardiovascular Imaging Lab [facility] [address] [place] [phone] Trip Colon MD [address] [place] [phone] Social History Tobacco Use Types Packs/Day Years Used Date Smoking Tobacco: Never Smokeless Tobacco: Never Alcohol Use Standard Drinks/Week Comments No 0 (1 standard drink = 0.6 oz pur e alcohol) Comments No Sex and Gender Information Value Date Recorded Sex Assigned at Not on file Legal Sex Female 1:47 PM EST Gender Identity Female Sexual Orientation Straight 12/21/2024 11 :02 AM EDT documented as of this encounter Plan of Treatment Upcoming Encounters Date Type Department Care Team (Late st Contact Info) Description 06/28/2025 2:45 PM EDT Office Visit [facility] [address] [place] [phone] Trip Colon MD [address] [place] [phone] 07/31/2025 1:30 PM EST Telemedicine [facility] Out[facility] [address] [place], [place] [id number] Shai Orr MD [address] [place] [address] Scheduled Orders Name Type Priority Associated Diagnoses Orde r Schedule ECHOCARDIOGRAM Echocardiography Orde red: 03/03/2012 documented as of this encounter Visit Diagnoses Not on filedocumented in this encounter Care Teams Airline Pilot/First Officer Relationship Specialty Start Date End Date Natalie Ya MD PCP - General 02/26/11 documented as of this encounter
--- OUTSIDE RECORDS SUMMARY | 2025-06-18 16:40 | XMS_ITS | Encounter Summary ---
Author Organization [facility] Address [address] [place] [address] Care Team Providers Care Bank Examiner Name Role Phone Unallocated, Noms Provider Primary Care Provi yana Natalie Ya MD Primary Care Provider [phone] Ever Nelson DO Unavailable [phone] Deja Pack HUMAN RESOURCES PROFESSIONAL Unavailable [phone] Encounter Details Date Type Department Care Team (Late st Contact Info) Description 09/20/2023 Orders Only HENRIQUE HOWARD [address] [place] [address] Ilana Kumari DO [address] [place] [address] Social History Tobacco Use Types Packs/Day [...] Office Visit HENRIQUE Mckeon Otolaryngology [address] [place] [address] Ever Nelson, [address] [place] [address] 11/21/2025 9:45 AM EDT Office Visit HENRIQUE [place] ANITA [address] [place] [address] Ilana Kumari DO [address] [place] [address] documented as of this encounter Procedures Procedure Name Priority Date/Time Associated Diagnosis Comments MAMMOGRAM-DIAGNOSTIC* Routine 09/17/2023 10:08 AM EST documented in this encounter Results * MAMMOGRAM-DIAGNOSTIC* (09/17/2023 10:08 AM EST) Anatomical Region Laterality Modality Radiographic Esperanza ging us Ilana Kumari DO IMG XR PROCEDURES Final Res ult documented in this encounter Visit Diagnoses Not on filedocumented in this encounter Care Teams Bank Examiner Relationship Specialty Start Date End Date Unallocated, Nompradeep Greene MD [address] [place] [address] PCP - General Family Medicine 10/07/23 05/31/24 Natalie Ya MD [address] [place] [phone] PCP - General Family Medicine 06/01/24 Ever Nelson DO [address] [place] [address] Otolaryngology 06/01/24 Deja Pack NP [address] [place] [address] Referring Physician Family Medicine 06/01/24 documented as of this encounter
--- OUTSIDE RECORDS SUMMARY | 2025-06-18 16:40 | XMS_ITS | Clinical Summary ---
Author Organization [facility] Address [address] [place] [address] Care Team Providers Care Janitor Custodian Name Role Phone Natalie Ya MD Primary Care Provider [phone] Ever Nelson DO Unavailable [phone] Deja Pack MEDICAL SERVICES MANAGER Unavailable [phone] Allergies Active Allergy Reactions Criticality Noted Date Comments Fentanyl Rash Low 07/25/2019 Rash Gadolinium Derivatives Anaphylaxis,Rash High 019 Other Reaction(s): Chills, Dry Mouth, Itchy Throat Pt had reaction to gadolinium even after patient took 13 hour prep of prednisone and Benadryl for past mild reaction Throat closing and coughing post MRI with MINI even with premed Rash Other reaction(s): Chills, Dry Mouth, Itchy Throat Pt had reaction to gadolinium even after patient took 13 hour prep of prednisone and Benadryl for past mild reaction Iodinated Contrast Media 10/07/2023 Other Reaction(s): Unknown Midazolam Rash Low 07/25/2019 This medication was taken with fentanyl and pt had a reaction, unknown which medication made the pt have a reaction This medication was taken with fentanyl and pt had a reaction, unknown which medication made the pt have a reaction Medications carvedilol (Coreg) 25 MG tablet Active cetirizine (ZyrTEC ALLERGY) 10 MG tablet 1 (one) time each day at the same time Active Wheat Dextrin (Benefiber) powder Active amLODIPine (Norvasc) 2.5 MG tablet 4 Active fluconazole (Diflucan) 150 MG tabletIndicatio ns:Vaginal irritation 1 tablet orally every 3 days 3 tablet 5 Active estradiol (Estrace) 0.1 MG/GM vaginal creamIndication s:Vaginal atrophy Insert 1 g into the vagina 2 (two) times a week Use 1gm nightly for the first week. 42.5 g 2 5 05/14/20 26 Active levothyroxine (Synthroid, Levoxyl) 25 MCG tabletIndicatio ns:Thyroid cancer (HCC) Take 1 tablet (25 mcg) by mouth in the morning. Take before meals. 30 tablet 1 5 06/22/20 25 Active levothyroxine (Synthroid, Levoxyl) 25 MCG tablet TAKE 1 TABLET (25 MCG TOTAL) BY MOUTH IN THE MORNING. 05/23/20 25 Discontinu ed(Reorder ) Active Problems Problem Noted Date Diagnosed Date Postoperative hypothyroidism 11/29/2024 Thyroid cancer 11/29/2024 Resolved Problems Problem Noted Date Diagnosed Date Resolved Date Postoperative pain 05/31/2024 4 Abdominal bloating 05/04/2024 4 Abdominal cramping 05/04/2024 4 Abnormal uterine bleeding 05/04/2024 Bilateral hearing loss 05/04/202405/04 Chronic pharyngitis 05/04/2024 05/04/20 24 Diarrhea 05/04/2024 05/04/2024 Acid reflux 05/04/2024 05/04/2024 Heartburn 05/04/2024 05/04/2024 Insomnia 05/04/2024 05/04/2024 Laryngopharyngeal reflux 05/04/2024 Left thyroid nodule 05/04/2024 05/04/20 24 Lightheadedness 05/04/2024 05/04/2024 Localized swelling, mass and lump, head 05/04/2024 05/04/2024 Lumbar pain 05/04/2024 05/04/2024 Menstrual disorder 05/04/2024 Menstrual migraine 05/04/2024 4 Mixed irritable bowel syndrome 05/04/2024 05/04/2024 Nausea 05/04/2024 05/04/2024 Other somatoform disorders 05/04/2024 0 05/04/2024 Arthralgia 05/04/2024 05/04/2024 Palpitations 05/04/2024 05/04/2024 RUQ pain 05/04/2024 05/04/2024 Intestinal metaplasia of gastric cardia 07/12/2019 05/04/2024 Overview (05/04/2024): Added automatically from request for surgery [id number] Esophageal dysphagia 03/03/2019 024 Overview (05/04/2024): Added automatically from request for surgery [id number] Irritable bowel syndrome wit h both constipation and diarrhea 03/03/2019 05/04/2024 Overview (05/04/2024): Added automatically from request for surgery [id number] Family history of lupus erythematosus 05/21/2016 05/04/2024 Family history of rheumatoid arthritis 05/21/2016 05/04/2024 Fibromyalgia 05/21/2016 05/04/2024 Joint stiffness of multiple sites 05/21/2016 05/04/2024 Numbness and tingling sensation of skin 05/21/2016 05/04/2024 Myalgia 05/21/2016 05/04/2024 Pain in joint, multiple sites 05/21/2016 05/04/2024 Cardiomyopathy 10/06/2002 05/04/2024 Encounters Date Type Department Care Team Description 05/23/2025 Telephone [facility] [address] [place] [phone] Ever Nelson, 05/15/2025 Telephone [facility] [place] [facility] [address] [place] [phone] Ilana Kumari, 05/11/2025 9:30 AM EDT Office Visit [facility] [address] [place] [address] Ilana Kumari, Vaginal atrophy (Primary Dx); Vaginal irritation 05/11/2025 Bamboo flowsheet [facility] [place] [facility] [address] [place] [phone] Ilana Kumari, DO 05/11/2025 Travel 04/30/2025 Refill [facility] [place] [facility] [address] [place] [address] Ilana Kumari, DO Vaginal irritation 04/16/2025 Telephone [facility] [address] [place] [address] Heidi Darling LPN medical question 03/29/2025 3:30 PM EDT Office Visit [facility] [address] [place] [address] Ever Nelson, DO Thyroid cancer (HCC) (Primary Dx); Postoperative hypothyroidism ; Neck mass 03/29/2025 Travel from Last 3 Months Immunizations Immunization Administration Dates Next Due Hep A / Hep B 07/09/2016,02/04/2016,01/06/2016 Tdap 01/06/2016 Typhoid, Unspecified 01/06/2016 Family History Medical History Relation Name Comments Heart disease Father Cancer Father's Brother David Heart disease Father's Brother David Cancer Father's Sister Inez Stroke Maternal Grandfather Charles Diabetes Maternal Grandmother Gladiene Diabetes Mother Trina Diabetes Paternal Grandmother Marge Lupus Sister Chelsy Flaquito Rheum arthritis Sister Chelsy Flaquito Relation Name Status Comments Brother 2 Father Father's Brother David Father's Sister Inez Maternal Grandfather Charles Alive Maternal Grandmother Gladiene Mother Trina Paternal Grandmother Marge Sister Chelsy Flaquito 2 Son Alive 2 Social History Tobacco Use Types Packs/Day Years [...] on file Sexual Orientation Not on file Last Filed Vital Signs Vital Sign Reading Time Taken Comments Blood Pressure 112/72 05/11/2025 9:27 AM EDT Pulse - - Temperature - - Respiratory Rate - - Oxygen Saturation - - Inhaled Oxygen Concentration - - Weight 68.9 kg (152 lb) 05/11/2025 9:27 AM EDT Height 157.5 cm (5' 2 ) 03/29/2025 3:23 PM EDT Body Mass Index 27.8 03/29/2025 3:23 PM EDT Plan of Treatment Upcoming Encounters Date Type Department Care Team (Late st Contact Info) Description 07/02/2025 9:00 AM EDT Office Visit [facility] [address] [place] [phone] Ever Nelson DO [address] [place] [address] 11/21/2025 9:45 AM EDT Office Visit [facility] [address] [place] [phone] Ilana Kumari DO [address] [place] [address] Insurance [employer] Care Teams Janitor Custodian Relationship Specialty Start Date End Date Natalie Ya MD [address] [facility] [place] [address] PCP - General Family Medicine 06/01/24 Ever Nelson DO [address] [place] [address] Otolaryngology 06/01/24 Deja Pack NP [address] [place] [address] Referring Physician Family Medicine 06/01/24
--- OUTSIDE RECORDS SUMMARY | 2025-06-18 16:40 | XMS_ITS | Encounter Summary ---
Author Organization [facility] Address [address] [facility] [place] [address] Care Team Providers Care Stunt Performer Name Role Phone Unallocated, Noms Provider Primary Care Provi yana Natalie Ya MD Primary Care Provider [phone] Ever Nelson DO Unavailable [phone] Deja Pack HAT AND CAP SEWER Unavailable [phone] Encounter Details Date Type Department Care Team (Late st Contact Info) Description 05/25/2017 Abstract [facility] [address] [place] [address] Kia Haines, [facility] [address] [place] [address] Social History Tobacco Use Types [...] Office Visit [facility] [address] [place] [address] Ever Nelson DO [address] [place] [address] 11/21/2025 9:45 AM EDT Office Visit [facility] [address] [place] [phone] Ilana Kumari DO [address] [place] [address] documented as of this encounter Visit Diagnoses Not on filedocumented in this encounter Care Teams Stunt Performer Relationship Specialty Start Date End Date Unallocated, Erich Greene MD [address] [place] [address] PCP - General Family Medicine 10/07/23 05/31/24 Natalie Ya MD [address] [place] [phone] PCP - General Family Medicine 06/01/24 Ever Nelson DO [address] [place] [address] Otolaryngology 06/01/24 Deja Pack NP [address] [place] [id number] Referring Physician Family Medicine 06/01/24 documented as of this encounter
--- OUTSIDE RECORDS SUMMARY | 2025-06-18 16:41 | XMS_ITS | Encounter Summary ---
Author Organization [facility] Address [address] [place] [address] Care Team Providers Care Sustainability Communicator Name Role Phone Natalie Ya MD Primary Care Provider [phone] Ever Nelson DO Unavailable [phone] Deja Pack HAND CUTTER Unavailable [phone] Encounter Details Date Type Department Care Team (Late st Contact Info) Description 10/02/2024 Orders Only [facility] [address] [place] [address] Ilana Kumari DO [address] [place] [address] Social History Tobacco Use Types [...] Office Visit [facility] [address] [place] [address] Ever Nelson DO [address] [place] [address] 11/21/2025 9:45 AM EDT Office Visit [facility] [address] [place] [phone] Ilana Kumari DO [address] [place] [address] documented as of this encounter Procedures Procedure Name Priority Date/Time Associated Diagnosis Comments MAMMOGRAM, BILATERAL, SCREEN:* Routine 10/02/2024 8:18 AM EST documented in this encounter Results * MAMMOGRAM, BILATERAL, SCREEN:* (10/02/2024 8:18 AM EST) Anatomical Region Laterality Modality Radiographic Esperanza ging us Ilana Kumari DO IMG XR PROCEDURES Final Res ult documented in this encounter Visit Diagnoses Not on filedocumented in this encounter Care Teams Sustainability Communicator Relationship Specialty Start Date End Date Natalie Ya MD [address] [facility] [place] [address] PCP - General Family Medicine 06/01/24 Ever Nelson DO [address] [place] [address] Otolaryngology 06/01/24 Deja Pack NP [address] [facility] [place] [address] Referring Physician Family Medicine 06/01/24 documented as of this encounter
--- OUTSIDE RECORDS SUMMARY | 2025-06-18 16:41 | XMS_ITS | Clinical Summary ---
Author Organization [facility] Address [address] [place] [address] Care Team Providers Care Chick Sexer Name Role Phone Natalie Ya MD Primary Care Provider [phone] Allergies Active Allergy Reactions Criticality Noted Date Comments Fentanyl Rash 07/25/2019 Gadobutrol Rash,Itchy Throat,Chills,Dry Mouth High 10/19/2018 Pt had reaction to gadolinium even after patient took 13 hour prep of prednisone and Benadryl for past mild reaction Gadolinium Derivatives 05/17/2024 Other Reaction(s): Anaphylaxis Iodinated Diagnostic Agents 10/07/2023 Other Reaction(s): Anaphylaxis Other Reaction(s): Unknown Midazolam Rash 07/25/2019 This medication was taken with fentanyl and pt had a reaction, unknown which medication made the pt have a reaction Medications Wheat Dextrin (BENEFIBER PO) Take 1 Dose by mouth. Powder that pt takes once a day Active Cetirizine 10 MG tablet Take 1 tablet by mouth daily as needed. Active amLODIPine 5 MG tabletIndications: Cardiac microvascular disease,Palpitatio ns,Atypical chest pain Take 1 tablet by mouth daily. 90 tablet 3 4 Active Levothyroxine 25 MCG tablet Take 1 tablet by mouth every morning before breakfast. Active carveDILOL 25 MG tabletIndications: Other cardiomyopathy,Pal pitations Take 2.5 tablets by mouth 2 times daily with meals. 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 Lightheadedness Palpitations Insomnia Family History Medical History Relation Name Comments Coronary Artery Disease Father Trip Rousseau Myocardial Infarction Father Trip Rousseau Sudden Cardiac Father Trip Rousseau Stroke Maternal Grandfather Charles Irby Diabetes Maternal Grandmother Carl Irby Diabetes Mother Trina Rousseau Diabetes Paternal Grandmother Kailee Rousseau Lung Cancer Paternal Uncle 1 Josafat Rousseau Coronary Artery Disease Paternal Uncle 2 Kain Madisonerzane Myocardial Infarction Paternal Uncle 2 Kain Madisonerzane Sudden Cardiac Paternal Uncle 2 Kain Rousseau Lipid Disorder Sister Colorectal Cancer Neg Hx Relation Name Status Comments Father Trip Rousseau (Age 44) [place] Maternal Grandfather Charles Irby Maternal Grandmother Carl Irby Mother Trina Rousseau Paternal Grandmother Kailee Rousseau Paternal Uncle 1 Josafat Rousseau Paternal Uncle 2 Kain Rousseau Sister Social History Tobacco Use Types Packs/Day Years Used Date Smoking Tobacco: Never Smokeless Tobacco: Never Tobacco Cessation:Counseling Given: Not Answered Alcohol Use Standard Drinks/Week Comments No 0 (1 standard drink = 0.6 oz pur e alcohol) Comments No Sex and Gender Information Value Date Recorded Sex Assigned at Not on file Legal Sex Female 1:47 PM EST Gender Identity Female Sexual Orientation Straight 12/21/2024 11 :02 AM EDT Last Filed Vital Signs Vital Sign Reading Time Taken Comments Blood Pressure 103/66 12/21/2024 1:44 PM EDT Pulse 89 12/21/2024 1:44 PM EDT Temperature 36.9 C (98.4 F) 06/06/2019 1:06 PM EDT Respiratory Rate 18 12/21/2024 1:39 PM EDT Oxygen Saturation 98% 12/21/2024 1:39 PM EDT Inhaled Oxygen Concentration - - Weight 70.8 kg (156 lb) 12/21/2024 1:39 PM EDT Height 157.5 cm (5' 2 ) 12/21/2024 1:39 PM EDT Body Mass Index 28.53 12/21/2024 1:39 PM EDT Plan of Treatment Upcoming Encounters Date Type Department Care Team (Late st Contact Info) Description 06/28/2025 2:45 PM EDT [facility] [address] [place] [phone] Trip Colon MD [address] [place] [address] 07/31/2025 1:30 PM EST [facility] [address] [place], [place] [phone] Shai Orr MD [address] [place], [place] [phone] Health Maintenance Due Date Last Done Comments HEPATITIS C VIRUS SCREENING 1975 HIV SCREENING DISCUSSION 1990 CERVICAL CANCER SCREENING DISCUSSION 1996 COLORECTAL CANCER SCREENING DISCUSSION 2020 TSH 09/18/2022 09/18/2021, 03/07, 01/24/2009, Additional history exists MAMMOGRAM SCREENING DISCUSSION 09/22/2023 0 09/22/2022, 08/13/2020, 05/10/2019 COVID-19 VACCINE (1 - 2023-2 5 season) 2025 INFLUENZA VACCINE (#1) 2025 PNEUMOCOCCAL VACCINE SERIES (1 of 1 - PCV) 2025 ZOSTER (SHINGLES) VACCINE (1 of 2) 2025 TETANUS 01/05/2026 01/06/2016 LIPID SCREENING 12/20/2027 12/19/2022, 09/06, 03/21/2019, Additional history exists TDAP (ADULT) Completed 01/06/2016 HEP B VACCINE Completed 07/09/2016, 01/06, 01/06/2016 Procedures Procedure Name Priority Date/Time Associated Diagnosis Comments LIPID PANEL, MANUAL ENTER Routine 12/19/2022 TSH Routine 09/18/2021 4:34 PM EST Chronic left shoulder pain Palpitations Cardiac microvascular disease from Last 3 Months or Most Recently Relevant to Health Maintenance Results * LIPID PANEL, MANUAL ENTER (12/19/2022) TOTAL CHOLESTERL, MANUAL ENTER 167 TRIGLYCERIDES, MANUAL ENTER 66 HDL, MANUAL ENTER 46 LDL, MANUAL ENTER 107.8 TCHOL/HDL RATIO, MANUAL ENTER 3.6 12/19/2022 [facility] Provider LAB SEND OUTS Final Result * TSH (09/18/2021 4:34 PM EST) TSH 0.981 0.550 - 4.780 uIU/mL 09/18/2021 5:44 PM EST [facility] Blood 09/18/2021 4:34 PM EST 09/18/2021 4:34 PM EST Justyna Heller SPORTS BETTING MANAGER-RECONDITIONING ASSOCIATE ENDOCRINOLOGY Final Re sult [facility] [address] [address] from Last 3 Months or Most Recently Relevant to Health Maintenance Insurance MMO Care Teams Chick Sexer Relationship Specialty Start Date End Date Natalie Ya MD PCP - General 02/26/11
--- OUTSIDE RECORDS SUMMARY | 2025-06-18 16:41 | XMS_ITS | Encounter Summary ---
Author Organization [facility] Address [address] [facility] [place] [address] Care Team Providers Care Joint Machine Operator Name Role Phone Natalie Ya MD Primary Care Provider [phone] Ever Nelson DO Unavailable [phone] Deja Pack HVAC DESIGNER Unavailable [phone] Encounter Details Date Type Department Care Team (Late st Contact Info) Description 07/21/2024 Orders Only [facility] [address] [place] [address] Kelly Martínez MA Follicular thyroid carcinoma (HCC) Social History Tobacco Use Types Packs/Day Years [...] Office Visit [facility] [address] [place] [address] Ever Nelson, DO [address] [place] [address] 11/21/2025 9:45 AM EDT Office Visit [facility] [address] [place] [phone] Ilana Kumari DO [address] [place] [address] documented as of this encounter Procedures Procedure Name Priority Date/Time Associated Diagnosis Comments THYROGLOBULIN Routine 07/21/2024 9:07 AM EST Follicular thyroid carcinoma (HCC) documented in this encounter Results * Thyroglobulin (07/21/2024 9:07 AM EST) Blood Venous blood specimen / Unknown Ever Nelson DO LAB BLOOD ORDERABLES Final Result Performing Organization Address City/State/[facility] Co de Phone Number EXTERNAL LAB documented in this encounter Visit Diagnoses Diagnosis Follicular thyroid carcinoma (HCC) Malignant neoplasm of thyroid gland documented in this encounter Care Teams Joint Machine Operator Relationship Specialty Start Date End Date Natalie Ya MD [address] [place] [address] PCP - General Family Medicine 06/01/24 Ever Nelson DO [address] [place] [address] Otolaryngology 06/01/24 Deja Pack NP [address] [place] [address] Referring Physician Family Medicine 06/01/24 documented as of this encounter
--- OUTSIDE RECORDS SUMMARY | 2025-06-18 16:41 | XMS_ITS | Clinical Summary ---
Author Organization [facility] Address [id number] [address] [place] [address] Care Team Providers Care Director Of Pediatric Rehabilitation Name Role Phone Natalie Ya MD Primary Care Provider [phone] Allergies Active Allergy Reactions Criticality Noted Date Comments Fentanyl Rash Low 11/29/2024 Iodinated Contrast Media Shortness Of Breath,Rash,Wheezing High 11/29/2024 Midazolam Rash Low 11/29/2024 Medications amLODIPine (NORVASC) 5 mg tablet Take 1 tablet (5 mg total) by mouth. Active carvediloL (COREG) 25 mg tablet Take 2.5 tablets (62.5 mg total) by mouth in the morning and at bedtime. Stop previous script 150 tablet 11 12/01/19 25 Active levothyroxine (SYNTHROID, LEVOTHROID) 25 MCG tabletIndications: Thyroid cancer ([facility]-HCC),Postoper ative hypothyroidism TAKE 1 TABLET (25 MCG TOTAL) BY MOUTH IN THE MORNING. 90 tablet 05/23/20 25 Active levothyroxine (SYNTHROID, LEVOTHROID) 25 MCG tabletIndications: Thyroid cancer (CMS-HCC),Postoper ative hypothyroidism Take 1 tablet (25 mcg total) by mouth in the morning. 90 tablet 1 11/30/19 25 025 Discontinued Active Problems Problem Noted Date Diagnosed Date Thyroid cancer 11/29/2024 Postoperative hypothyroidism 11/29/2024 Encounters Date Type Department Care Team Description 05/23/2025 Refill [facility] Department of [facility] [address] [address] Ivon Mcmahon MD Thyroid cancer ([facility]-H[facility]); Postoperative hypothyroidism from Last 3 Months Social History Tobacco Use Types Packs/Day Years Used Date Smoking Tobacco: Never Smokeless Tobacco: Never Tobacco Cessation:Counseling Given: Not Answered Alcohol Use Standard Drinks/Week Comments Never 0 [...] Sign Reading Time Taken Comments Blood Pressure 106/74 11/29/2024 11:25 AM EDT Pulse - - Temperature - - Respiratory Rate - - Oxygen Saturation - - Inhaled Oxygen Concentration - - Weight 72.1 kg (158 lb 14.4 oz) 025 11:25 AM EDT Height - - Body Mass Index - - Plan of Treatment Health Maintenance Due Date Last Done Comments Depression Screening 1987 Adult BMI Screening 1993 Zoster (Shingles) Vaccine (1 of 2) 1994 Pap Smear 1996 Influenza Vaccine 05/07/2025 Tobacco Screening 11/29/2025 11/29/2024 DTaP,Tdap and Td Vaccines (2 - Td or Tdap) 01/05/2026 01/06/2016 Medical Devices Not on file Insurance [employer] Care Teams Director Of Pediatric Rehabilitation Relationship Specialty Start Date End Date Natalie Ya MD [address] [place] [address] PCP - General Family Medicine 11/29/24
--- OUTSIDE RECORDS SUMMARY | 2025-06-18 16:42 | XMS_ITS | CCD ---
Author Organization [facility] Care Team Providers Care Molecular Geneticist Name Role Phone GENEVIEVE Alexander Attending Provider [phone] Cj Lazo MD Primary Care Provider Yas Garcia Unavailable Cj Lazo MD Primary Care Provider [phone] Cj Lazo MD Primary Care Provider [phone] CJ LAZO Primary Care Physician [phone] MISC, DR PADRON Consulting Unavailable MISC, DR PADRON Attending Unavailable MISC, DR PADRON Admitting Unavailable LAZO, DR CJ Rai Primary Care Unavailable ZIEBER, DR GABRIELA Mendoza Consulting Unavailable MISC, DR PADRON Consulting Unavailable MISC, DR PADRON Attending Unavailable MISC, DR PADRON Admitting Unavailable LAZO, DR JC Rai Primary Care Unavailable MISC, DR PADRON [...] MD Primary Care Provider Viral Smith Attending UnavailJessica Perez Attending Unavailable SALAM, Petty Admitting Unavailable SALAM, Petty Attending Unavailable SALAM, Dove Referring Unavailable Jessica Lopez Attending Unavailable John, Jessica Rojas Attending Unavailable John, Jessica Rojas Attending Unavailable MD Cj Lazo Primary Care Provider [phone] DO Ever Woodward Attending Provider Ever Woodward Attending Unavailable Cj Lazo Primary Care Unavailable Ever Woodward Admitting Unavailable Ever Woodward Attending Unavailable Cj Lzao Primary Care Unavailable Crissy, Ever Admitting Unavailable Cj Lazo MD Primary Care Provider Ever Woodward DO Unavailable Sirena BUCK, Deja Rojas Unavailable Unallocated , Noms Provider Primary Care [facility] Cj Lazo MD Primary Care Provider Cj Lazo MD Primary Care Provider Unavailab le CJ LAZO Primary Care Unavailable CJ LAZO Referring Unavailable TRIP SOSA Attending Unavailable CJ LAZO Primary Care Unavailable KRISTINE THORNTON B Attending Unavailable CHALJOHAN, KRISTINE B Referring Unavailable CJ LAZO Primary Care Unavailable CJ LAZO Referring Unavailable SHEILATRIP Attending Unavailable VIKKI ORR Referring Unavailable CJ LAZO Primary Care Unavailable VIKKI ORR Attending Unavailable CJ LAZO Primary Care Unavailable CHALJOHAN, KRISTINE B Referring Unavailable VIKKI ORR Attending Unavailable Cj Lazo MD Primary Care Provider [phone] Cj Lazo MD Primary Care Provider [phone] Cj Lazo MD Primary Care Provider [phone] EVER WOODWARD Attending Unavailable ILANA KUMARI Attending Unavailable CRISSY, EVER Russell Attending Unavailable DEJA PACK Referring Unavailab le CRISSY, EVER Russell Attending Unavailable DEJA PACK Referring Unavailab ILANA Baer Attending Unavailable EVER WOODWARD Attending Unavailable EVER WOODWARD Attending Unavailable DEJA PACK Referring Unavailab le Allergies Allergy Classification Reported Allergen(s) Allergy Type Date of Onset Reaction(s) Facility (20 sources) fentaNYL; Translations: [fentanyl] Drug Allergy 9 Rash [facility] (20 sources) Midazolam; Translations: [midazolam] Drug Allergy 9 Rash [facility] Other (11 sources) mri contrast Propensity to adverse reactions 4 Unknown, Hives, Anaphylaxis [facility] (4 sources) gadobutrol Drug Allergy 9 Rash, Itchy Throat, Chills, Dry Mouth [facility] (7 sources) Contrast media; Translations: [contrast media (gadolinium-bas ed)] Drug allergy Rash, Cough [facility] (1 source) fentaNYL Drug Allergy [facility] (1 source) Gadolinium Drug Allergy [facility] (2 sources) Midazolam; Translations: [Versed] Drug Allergy [facility] (20 sources) Gadolinium-Cont aining Contrast Media Drug Allergy 9 Anaphylaxis, Rash [facility] (5 sources) gadobutrol Drug Allergy 9 Rash, Itchy Throat, Chills, Dry Mouth [facility] (20 sources) Iodinated Contrast Media Allergy to substance 4 Shortness Of Breath, Rash, Wheezing [facility] Comment on above: Onset Date: 10/20/19 19 MRI dye raspy voice, coughing, full body rash (5 sources) Gadolinium-Cont aining Contrast Medi Allergy to substance 4 Anaphylaxis [facility] Comment on above: used for Cardiac MRI (3 sources) Iodinated Diagnostic Agents Propensity to adverse reactions to drug 4 [facility] Medications Current Medications Medication Drug Class(es) Dates Sig (Normalized) Sig (Original) amLODIPine 5 mg oral tablet (20 sources) Dihydropyridine Calcium Channel Nathen Start: 07-27-2024 take 1 tablet by mouth once daily amLODIPine 5 MG tablet Indications: Cardiac microvascular disease , Palpitations , Atypical chest pain Take 1 tablet by mouth daily. 90 tablet 3 07/27/2024 Active Start: 01-06-2024 amLODIPine (No rvasc) 2.5 MG tablet 01/06/2024 Active busPIRone hydrochloride 10 mg oral [...] carvedilol 25 mg oral tablet (20 sources) alpha-Adrenerg ic Nathen, beta-Adrenergi c Nathen Start: 08-04-2023 End: 12-21-2024 take 2.5 tablets by mouth at bedtime carvediloL (COREG) 25 mg tablet Take 2.5 tablets (62.5 mg total) by mouth in the morning and at bedtime. Stop previous script 150 tablet 11 11/30/2024 Active Start: 04-22-2023 take 1.5 tablets by mouth twice daily at mealtime carveDILOL 25 MG tablet Indications: Other cardiomyopathy , Palpitations Take 1.5 tablets by mouth 2 times daily with meals. Increase Dose 270 tablet 3 04/22/2023 Active Start: 10-29-2017 End: 11-30-2024 take 1 tablet by mouth twice daily Carvedilol (Coreg) 25 mg tablet Active 62.5 MG PO Twice daily December 09, 2023 12:00am FreeTextSi Tablet Orally bid; Note: Source Status: Taking; Provider: Jose Sorenson ( ) Comment on above: Take 25 mg by mouth twice daily with meals. cetirizine hydrochloride 10 mg oral capsule (20 sources) Histamine-1 Receptor Antagonist Start: take 1 capsule by mouth once daily as needed Cetirizine (Zyrtec) 10 mg capsule Active 10 MG PO Daily as needed October 31, 2024 1:00am Start: 10-29-2017 End: 04-22-2023 Zyrtec 10 mg, Oral, PRN Jalil rgy symptoms, Refills(s) 0 Start Date: 2/23/18 Status: Ordered CETIRIZINE HCL ( ZYRTEC ORAL) Take by mouth. 0 Active Comment on above: Take by mouth. estradiol 0.1 mg/ml vaginal cream (2 sources) Estrogen Start: End: estradiol (Estrace) 0.1 MG/GM vaginal cream Indications: Vaginal atrophy Insert 1 g into the vagina 2 (two) times a week Use 1gm nightly for the first week. 42.5 g 2 05/14/2025 05/14/2026 Active fluconazole 150 mg oral tablet (3 sources) Azole Antifungal Start: fluconazole (Diflucan) 150 MG tablet Indications: Vaginal irritation 1 tablet orally every 3 days 3 tablet 04/24/2025 Active levothyroxine sodium 0.025 mg oral tablet (13 sources) l-Thyroxine Start: take 1 capsule by mouth once daily Levothyroxine 25 mcg capsule Active 25 MCG PO Daily December 22, 2024 12:00am Start: 11-29-2024 End: 05-23-2025 take 1 tablet by mouth in the morning levothyroxine (SYNTHROID, LEVOTHROID) 25 MCG tablet Indications: Thyroid cancer (CMS-HCC) , Postoperative hypothyroidism TAKE 1 TABLET (25 MCG TOTAL) BY MOUTH IN THE MORNING. 90 tablet 05/23/2025 Active methylPREDNISolone 4 mg oral tablet (1 source) Corticosteroid Start: 12-22-2024 take 1 tablet by mouth once Methylprednisolone (Medrol (Marcelino)) 4 mg tablets,dose pack Active 0 PO per package directions December 22, 2024 12:00am PO PER PKG DIR metoprolol tartrate 50 mg oral tablet (2 sources) beta-Adrenergic Nathen Start: 06-21-2024 Metoprolol 50 MG tab regular release Take one tablet by mouth, 1-[address] your cardiac CT time 1 tablet 06/21/2024 Active nitrofurantoin, macrocrystals 25 mg / nitrofurantoin, monohydrate 75 mg oral capsule (1 source) Nitrofuran Antibacterial Start: 03-12-2022 take 1 capsule by mouth every twelve hours Macrobid 100 MG 1 capsule with food Orally every 12 hrs for 5 days Mar, Active phenazopyridine hydrochloride 200 mg oral tablet (1 source) Start: 03-12-2022 take 1 tablet by mouth every eight hours Pyridium 200 MG 1 tablet after meals Orally Three times a day for 2 day(s) Mar, Active Psyllium (3 sources) Start: 11-26-2020 Metamucil Oral, Refills(s) 0, Constipation Start Date: [...] Status: Ordered Wheat Dextrin (B enefiber) powder Active take 1 dose by mouth once [...] / HYDROcodone bitartrate 5 mg oral tablet (13 sources) Opioid Agonist Start: 05-24-2024 End: 10-31-2024 take 1 tablet by mouth every six hours as needed for pain Hydrocodone-Acetami nophen 5-325 mg tablet Discontinued 1 TAB PO Every 6 hours as needed for pain 06 12May 24, 2024 October 31, 2024 10:26am Start: 05-24-2024 End: 10-31-2024 HYDROcodone-acetaminophen (N orco) 5-325 MG tablet 1 tablet 05/24/2024 10/31/2024 Discontinued atorvastatin 20 mg oral tablet (5 sources) [...] 1 tablet by mouth once daily Lisinopril 5 mg tablet Discontinued 1 TAB PO Daily December 09, [...] Documented Da te Episodic/Chronic Cancer of thyroid (20 sources) Follicular thyroid carcinoma; Translations: [Malignant neoplasm of thyroid gland] Onset: 11-29-2024 06-08-2024 Chronic Cardiac and circulatory congenital anomalies (3 sources) Venous malformation; Translations: [Other malformations of cerebral vessels] Chronic Complications of surgical procedures or medical care (16 sources) Postoperative hypothyroidism; Translations: [Postprocedural hypothyroidism] Onset: 11-29-2024 11-29-2024 Chronic Congestive heart failure; nonhypertensive (10 sources) Chronic systolic heart failure; Translations: [Chronic systolic (congestive) heart failure] Onset: 04-06-2013 Chronic Coronary atherosclerosis and other heart disease (10 sources) Heart disease; Translations: [Other forms of chronic ischemic heart disease] Onset: 11-27-2022 Chronic Genitourinary symptoms and ill-defined conditions (5 sources) Dysuria; Translations: [Dysuria] Onset: 03-12-2022 Resolved: 03-22-2022 Episodic Menopausal disorders (2 sources) Atrophy of vagina; Translations: [Postmenopausal atrophic vaginitis] 05-11-2025 Chronic Other female genital disorders (2 sources) Vaginal irritation; Translations: [Other specified noninflammatory disorders of vagina] 05-10-2025 Episodic Other gastrointestinal disorders (10 sources) Dysphagia; [...] in joint, site unspecified] 12-10-2023 Episodic Other screening for suspected conditions (not mental disorders or infectious disease) (8 sources) Encounter for screening mammogram for malignant neoplasm of breast; Translations: [Cancer cervix screening status] Onset: 09-15-2022 Episodic Other skin disorders (9 sources) Finding of head and neck region; Translations: [Localized swelling, mass and lump, head] Onset: 05-04-2024 Resolved: 05-04-2024 04-13-2024 Episodic Other skin disorders (7 sources) Localized swelling, mass and lump, head; Translations: [Swelling, mass, or lump in head and neck] 04-13-2024 Episodic Other skin disorders (2 sources) Mass of neck; Translations: [Localized swelling, mass and lump, neck] 03-29-2025 Episodic Other upper respiratory disease (20 sources) Chronic pharyngitis; Translations: [Chronic pharyngitis] Onset: 05-04-2024 Resolved: 05-04-2024 4 Chronic Other upper respiratory disease (2 sources) Chronic rhinitis; Translations: [Chronic rhinitis] 11-06-2024 Chronic Other upper respiratory disease (1 source) Allergic rhinitis; Translations: [Allergic rhinitis, unspecified] 11-22-2024 Chronic Other upper respiratory disease (1 source) Allergic rhinitis, unspecified; Translations: [Allergic rhinitis, cause unspecified] 11-22-2024 Chronic Other upper respiratory disease (4 sources) Feeling of lump in throat; Translations: [Globus sensation] 05-06-2024 Episodic Other upper respiratory disease (2 sources) Pain of nose; Translations: [Other specified disorders of nose and nasal sinuses] 11-06-2024 Episodic Other upper respiratory infections (2 sources) Chronic sinusitis; Translations: [Chronic sinusitis, unspecified] 12-30-2024 Chronic Otitis media and related conditions (4 sources) Otitis media; Translations: [Unspecified nonsuppurative otitis media, unspecified ear] 10-31-2024 Episodic Retinal detachments; defects; vascular occlusion; and retinopathy (3 sources) Hemorrhage of left retina; Translations: [Retinal hemorrhage, left eye] 10-25-2024 Chronic Unclassified (6 sources) Finding of sensation of [...] [Right upper quadrant pain] Onset: 3 Resolved: Episodic Cardiac dysrhythmias (20 sources) Palpitations; Translations: [Palpitations] Onset: 3 Resolved: 07-24-2008 Episodic Conditions associated with dizziness or vertigo (20 sources) Lightheadedness; Translations: [Dizziness and giddiness] Onset: 4 Resolved: 07-24-2008 Episodic Esophageal disorders (20 sources) Gastroesophageal reflux disease without esophagitis; Translations: [Gastro-esophageal reflux disease without esophagitis] Onset: 3 Resolved: 4 Chronic Headache; including migraine (20 sources) Menstrual migraine; Translations: [Menstrual migraine, not intractable, without status migrainosus] Onset: 4 Resolved: 4 05-04-2024 Chronic Malaise and fatigue (1 source) Other fatigue; Translations: [OTHER FATIGUE] Onset: 2 Episodic Menstrual disorders (20 sources) Disorder of menstruation; Translations: [Irregular menstruation, unspecified] Onset: 4 Resolved: 4 05-04-2024 Chronic Miscellaneous mental health disorders (20 sources) Bodily distress disorder; Translations: [Other somatoform disorders] Onset: 4 Resolved: 4 05-04-2024 Chronic Nausea and vomiting (20 sources) Nausea; Translations: [Nausea] Onset: 3 Resolved: 4 Episodic Nonspecific chest pain (7 sources) Other chest pain; Translations: [Atypical chest pain] Onset: 2 Episodic Other complications of ; puerperium affecting management of mother (9 sources) cardiomyopathy; 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] Onset: 8 07-26-2008 Episodic Other connective tissue disease (20 sources) Muscle pain; Translations: [Myalgia, unspecified site] Onset: 6 Resolved: 4 05-21-2016 Episodic Other connective tissue disease (20 sources) Fibromyalgia; Translations: [Fibromyalgia] Onset: 6 Resolved: 4 05-21-2016 Episodic Other disorders of stomach and duodenum (20 sources) Intestinal metaplasia of gastric cardia; Translations: [Intestinal metaplasia of gastric cardia] Onset: 9 Resolved: 4 07-12-2019 Episodic Other ear and sense organ disorders (20 sources) Bilateral hearing loss; Translations: [Unspecified hearing loss, bilateral] Onset: 4 Resolved: 4 05-04-2024 Chronic Other female genital disorders (20 sources) Abnormal uterine bleeding; Translations: [Abnormal uterine and vaginal bleeding, unspecified] Onset: 4 Resolved: 4 05-04-2024 Chronic Other gastrointestinal disorders (20 sources) Irritable bowel syndrome; Translations: [Mixed irritable bowel syndrome] Onset: 9 Resolved: 4 03-03-2019 Chronic Other gastrointestinal disorders (20 sources) Irritable bowel syndrome characterized by alternating bowel habit; Translations: [Mixed irritable bowel syndrome] Onset: 3 Resolved: 4 Chronic Other gastrointestinal disorders (20 sources) Esophageal dysphagia; Translations: [Other dysphagia] Onset: 9 Resolved: 4 03-03-2019 Episodic Other gastrointestinal disorders (20 sources) Diarrhea; Translations: [Diarrhea, unspecified] Onset: 3 Resolved: 4 Episodic Other gastrointestinal disorders (20 sources) Heartburn; Translations: [Heartburn] Onset: 3 Resolved: 4 Episodic Other gastrointestinal disorders (20 sources) Abdominal bloating; Translations: [Abdominal distension (gaseous)] Onset: 4 Resolved: 4 12-17-2023 Episodic Other lower respiratory disease (9 sources) Finding of respiration; Translations: [Other forms of dyspnea] Onset: 3 04-06-2013 Episodic Other nervous system disorders (20 sources) Numbness and tingling sensation of skin; Translations: [Anesthesia of skin] Onset: 6 Resolved: 4 05-21-2016 Episodic Other nervous system disorders (20 sources) Postoperative pain ; Translations: [Other acute postprocedural pain] Onset: 4 Resolved: 4 05-24-2024 Episodic Other non-traumatic joint disorders (20 sources) Multiple joint pain; Translations: [Pain in unspecified joint] Onset: 6 Resolved: 4 05-21-2016 Episodic Other non-traumatic joint disorders (20 sources) Multiple stiff joints; Translations: [Stiffness of unspecified joint, not elsewhere classified] Onset: 6 Resolved: 4 05-21-2016 Episodic Other non-traumatic joint disorders (20 sources) Joint pain; Translations: [Pain in unspecified joint] Onset: 4 Resolved: 12-10-2023 Episodic Other skin disorders (20 sources) Finding of head region; Translations: [Localized swelling, mass and lump, head] Onset: 4 Resolved: 4 05-04-2024 Episodic Glendy-; endo-; and myocarditis; cardiomyopathy (except that caused by tuberculosis or sexually transmitted disease) (20 sources) Cardiomyopathy; Translations: [Other cardiomyopathies] Onset: 3 Resolved: 4 Chronic Residual codes; unclassified (20 sources) Insomnia; Translations: [Insomnia, unspecified] Onset: 4 Resolved: 07-24-2008 Episodic Residual codes; unclassified (20 sources) FH: Rheumatoid arthritis; Translations: [Family history of arthritis] Onset: 6 Resolved: 4 05-21-2016 Episodic Residual codes; unclassified (20 sources) Family history of lupus erythematosus; Translations: [Family history of diseases of the skin and subcutaneous tissue] Onset: 6 Resolved: 05-21-2016 Episodic Residual codes; unclassified (1 source) Family history of malignant neoplasm of trachea, bronchus and lung; Translations: [FAM HX MALIG NEOPLSM TRACH BRON LNG] Onset: 3 Episodic Residual codes; unclassified (1 source) Family history of malignant neoplasm of other organs or systems; Translations: [FAM HX MALIG NEOPLASM OTH ORGN/SYS] Onset: 3 Episodic Spondylosis; intervertebral disc disorders; other back problems (20 sources) Low back pain; Translations: [Lumbar back [...] Test Name Value Interpretation Reference Range Facility No Panel InformationOrdered By: Deja Pack on 12-22-2024 RSV (POC) [facility] Basophils Auto (Bld) [#/Vol] on 12-06-2024 Basophils (Bld) [#/Vol] Automated basoph il count 0.0-0.1 [facility] Basophils/100 WBC Auto (Bld) on 12-06-2024 Basophils/100 WBC (Bld) Automated basophil % 0. 2-2.0 [facility] Eosinophils/100 WBC Auto (Bl d)on 12-06-2024 Eosinophils/100 WBC (Bld) Automated eosinophil % 0.9-7.0 [facility] Erythrocyte distribution wid th Auto (RBC) [Ratio]on 12-06-2024 Erythrocyte distribution width (RBC) [Ratio] Erythrocyte distribution width [Ratio] by Automated count 11.0-15.0 [facility] Estimated glomerular filtrat ion rate (GFR) non- Americanon 12-06-2024 GFR/1.73 sq M.predicted among non-blacks MDRD (S/P/Bld) [Vol rate/Area] Estimated glomerular filtration rate (GFR) non- >=60 mL/min/1.73m 2 [facility] Globulin Calc (S) [Mass/Vol] on 12-06-2024 Globulin (S) [Mass/Vol] Serum globulin measurement by calculation (mass/volume) [facility] Hematocrit Auto (Bld) [Volum e fraction]on 12-06-2024 Hematocrit (Bld) [Volume fraction] Hematocrit [Volume Fraction] of Blood by Automated count 36.0-48.0 [facility] Hemoglobin [Mass/volume] in Bloodon 12-06-2024 Hemoglobin (Bld) [Mass/Vol] Hemoglobin [Mass/volume] in Blood 12.0-16.0 [facility] Iron binding capacity [Mass/ volume] in Serum or Plasmaon 12-06-2024 Iron binding capacity [Mass/Vol] Iron binding capacity [Mass/volume] in Serum or Plasma 250.0-450.0 [facility] Iron saturation [Mass Fracti on] in Serum or Plasmaon 12-06-2024 Iron saturation [Mass fraction] Iron saturation [Mass Fraction] in Serum or Plasma [facility] - Chemistry and C hemistry - challengeon 12-06-2024 Albumin [Mass/Vol] 3.8 g/dL 3.4-5.[address] [facility] ALP [Catalytic activity/Vol] 55 U/L 46-116 [facility] ALT [Catalytic activity/Vol] 19 U/L 14-59 [facility] AST [Catalytic activity/Vol] 19 U/L 15-37 [facility] Bilirubin [Mass/Vol] 0.2 mg/dL 0.2-1.0 [facility] Calcium [Mass/Vol] 9.0 mg/dL 8.5-10.[address] [facility] Chloride [Moles/Vol] 103 mmol/L 98-107 [facility] CO2 [Moles/Vol] 29.1 mmol/L 21.0-32.0 [facility] Creatinine [Mass/Vol] 0.84 mg/dL 0.55-1.02 [facility] Ferritin [Mass/Vol] 18.0 ng/mL 8.0-252.0 [facility] GFR/1.73 sq M.predicted MDRD (S/P/Bld) [Vol rate/Area] mL/min/{1.73_m2} >=60 mL/min/1.73m 2 [facility] Glucose [Mass/Vol] 92 mg/dL 74-[address] [facility] Iron [Mass/Vol] 108.0 ug/dL 50.0-170.0 [facility] Potassium [Moles/Vol] 3.8 mmol/L 3.5-5.1 [facility] Protein [Mass/Vol] 7.8 g/dL 6.4-8.[address] [facility] Sodium [Moles/Vol] 138 mmol/L 136-[address] [facility] Transferrin [Mass/Vol] 288 mg/dL 192-364 [facility] Comment on above: Performed at: - L [address] [id number] Director: Brent Guevara PhD, Phone: [phone] TSH Qn 1.760 m[IU]/L 0.358-3.740 [facility] Urea nitrogen [Mass/Vol] 12.0 mg/dL 7.0-18.0 [facility] Urea nitrogen/Creatinine [Mass ratio] 14.3 mg/mg [facility] - Hematology and Cell countson 12-06-2024 Immature granulocytes/100 WBC (Bld) 0.3 % 0.0-0.5 [facility] Leukocytes [#/volume] correc vladimir for nucleated erythrocytes in Blood by Automated counon 12-06-2024 WBC corrected for nucl RBC Auto (Bld) [#/Vol] Leukocytes [#/volume] corrected for nucleated erythrocytes in Blood by Automated coun 4.0-11.0 [facility] Lymphocytes Auto (Bld) [#/Vo l]on 12-06-2024 Lymphocytes (Bld) [#/Vol] Lymphocytes [#/volume] in Blood by Automated count 1.2-3.8 [facility] Lymphocytes/100 WBC Auto (Bl d)on 12-06-2024 Lymphocytes/100 WBC (Bld) Lymphocytes/100 leukocytes in Blood by Automated count 20.5-60.0 [facility] MCH Auto (RBC) [Entitic mass ]on 12-06-2024 MCH (RBC) [Entitic mass] MCH [Entitic mass] by Automated count 26.7-34.0 [facility] MCHC Auto (RBC) [Mass/Vol]on 12-06-2024 MCHC (RBC) [Mass/Vol] MCHC [Mass/volume] by Automated count 29.9-35.2 [facility] MCV Auto (RBC) [Entitic vol] on 12-06-2024 MCV (RBC) [Entitic vol] MCV [Entitic vol ume] by Automated count 81.0-99.0 [facility] Monocytes Auto (Bld) [#/Vol] on 12-06-2024 Monocytes (Bld) [#/Vol] Automated blood monocyte count 0.3-0.8 [facility] Monocytes/100 WBC Auto (Bld) on 12-06-2024 Monocytes/100 WBC (Bld) Automated monocyte % 1. 7-12.0 [facility] Neutrophils Auto (Bld) [#/Vo l]on 12-06-2024 Neutrophils (Bld) [#/Vol] Neutrophils [#/volume] in Blood by Automated count 1.4-6.5 [facility] Neutrophils/100 WBC Auto (Bl d)on 12-06-2024 Neutrophils/100 WBC (Bld) Automated neutrophil % 43.0-75.0 [facility] No Panel Informationon 12-06 Eosinophils # (Auto) 0.1 10 3/uL 0.0-0.7 [facility] Immature Granulocyte # (Auto) 0.02 10 3/uL 0.00-0.03 [facility] Platelet mean volume Auto (B ld) [Entitic vol]on 12-06-2024 Platelet mean volume (Bld) [Entitic vol] Platelet mean volume [Entitic volume] in Blood by Automated count 9.5-13.5 [facility] Platelets Auto (Bld) [#/Vol] on 12-06-2024 Platelets (Bld) [#/Vol] Platelets [#/vol ume] in Blood by Automated count 150-450 [facility] RBC Auto (Bld) [#/Vol]on RBC (Bld) [#/Vol] Erythrocytes [#/volume] in Blood by Automated count Low 4.20-5.40 [facility] Serum or plasma albumin/glob ulin mass ratioon 12-06-2024 Albumin/Globulin [Mass ratio] Serum or plasma albumin/globulin mass ratio [facility] Serum or plasma anion gap de terminationon 12-06-2024 Anion gap [Moles/Vol] Serum or plasma anion gap determination [facility] Free T[facility]Mass/Vol][facility] Free T4 [Mass/Vol]on [facility] T3, freeon 11-29-2024 Free T3 [Mass/Vol] 2.84 pg/mL 2.50 - 3. 90 pg/mL [facility] T4, freeon 11-29-2024 Free T4 [Mass/Vol] 0.67 ng/dL 0.61 - 1. 60 ng/dL [facility] TSHon 11-29-2024 TSH Qn 1.49 m[IU]/L [facility] TSH Qnon 11-29-2024 [facility] Thyroglobulin quantitative w /antibody (tumor marker)on 11-29-2024 Thyroglobulin [Mass/Vol] 8.8 ng/mL 0 - 35 ng/mL [facility] Comment on above: Quantitation of Thyroglobulin may be unreliable due to the presence of Anti-Thyroglobulin antibodies. The results cannot be interpreted as absolute evidence for the presence or absence of malignant disease. Thyroglobulin Ab Qn NINF [facility] Glucose mean value [Mass/vol ume] in Blood Estimated from glycated hemoglobinon 10-31-2024 Average glucose Estimated from glycated hemoglobin (Bld) [Mass/Vol] Glucose mean value [Mass/volume] in Blood Estimated from glycated hemoglobin [facility] Hemoglobin A1c percentageon 10-31-2024 HbA1c (Bld) [Mass fraction] Hemoglobin A1c percentage 4.5-6.2 [facility] Comment on above: ADA RECOMMENDED LIMI T 4.0 - 6.0ADA THERAPEUTIC TARGET < 7.0ACTION SUGGESTED> 7.0 Basophils Auto (Bld) [#/Vol] on 08-25-2024 Basophils (Bld) [#/Vol] Automated basoph il count 0.0-0.1 [facility] Basophils/100 WBC Auto (Bld) on 08-25-2024 Basophils/100 WBC (Bld) Automated basophil % 0. 2-2.0 [facility] Eosinophils/100 WBC Auto (Bl d)on 08-25-2024 Eosinophils/100 WBC (Bld) Automated eosinophil % 0.9-7.0 [facility] Erythrocyte distribution wid th Auto (RBC) [Ratio]on 08-25-2024 Erythrocyte distribution width (RBC) [Ratio] Erythrocyte distribution width [Ratio] by Automated count 11.0-15.0 [facility] Estimated glomerular filtrat ion rate (GFR) non- Americanon 08-25-2024 GFR/1.73 sq M.predicted among non-blacks MDRD (S/P/Bld) [Vol rate/Area] Estimated glomerular filtration rate (GFR) non- >=60 mL/min/1.73m 2 [facility] Hematocrit Auto (Bld) [Volum e fraction]on 08-25-2024 Hematocrit (Bld) [Volume fraction] Hematocrit [Volume Fraction] of Blood by Automated count 36.0-48.0 [facility] Hemoglobin [Mass/volume] in Bloodon 08-25-2024 Hemoglobin (Bld) [Mass/Vol] Hemoglobin [Mass/volume] in Blood 12.0-16.0 [facility] Laboratory - Chemistry and C hemistry - challengeon 08-25-2024 Calcium [Mass/Vol] 9.4 mg/dL 8.5-10.[address] [facility] Chloride [Moles/Vol] 103 mmol/L 98-107 [facility] CO2 [Moles/Vol] 32.4 mmol/L High 21.0-32.0 [facility] Creatinine [Mass/Vol] 0.93 mg/dL 0.55-1.02 [facility] GFR/1.73 sq M.predicted MDRD (S/P/Bld) [Vol rate/Area] mL/min/{1.73_m2} >=60 mL/min/1.73m 2 [facility] Glucose [Mass/Vol] 87 mg/dL 74-[address] [facility] Magnesium [Mass/Vol] 2.4 mg/dL 1.8-2.4 [facility] Natriuretic peptide B (Bld) [Mass/Vol] 24.0 pg/mL <=900.0 [facility] Potassium [Moles/Vol] 4.0 mmol/L 3.5-5.1 [facility] Sodium [Moles/Vol] 142 mmol/L 136-[address] [facility] TSH Qn 1.796 m[IU]/L 0.358-3.740 [facility] Urea nitrogen [Mass/Vol] 17.0 mg/dL 7.0-18.0 [facility] Urea nitrogen/Creatinine [Mass ratio] 18.3 mg/mg [facility] - Hematology and Cell countson 08-25-2024 Immature granulocytes/100 WBC (Bld) 0.2 % 0.0-0.5 [facility] Leukocytes [#/volume] correc vladimir for nucleated erythrocytes in Blood by Automated counon 08-25-2024 WBC corrected for nucl RBC Auto (Bld) [#/Vol] Leukocytes [#/volume] corrected for nucleated erythrocytes in Blood by Automated coun 4.0-11.0 [facility] Lymphocytes Auto (Bld) [#/Vo l]on 08-25-2024 Lymphocytes (Bld) [#/Vol] Lymphocytes [#/volume] in Blood by Automated count 1.2-3.8 [facility] Lymphocytes/100 WBC Auto (Bl d)on 08-25-2024 Lymphocytes/100 WBC (Bld) Lymphocytes/100 leukocytes in Blood by Automated count 20.5-60.0 [facility] MCH Auto (RBC) [Entitic mass ]on 08-25-2024 MCH (RBC) [Entitic mass] MCH [Entitic mass] by Automated count 26.7-34.0 [facility] MCHC Auto (RBC) [Mass/Vol]on 08-25-2024 MCHC (RBC) [Mass/Vol] MCHC [Mass/volume] by Automated count 29.9-35.2 [facility] MCV Auto (RBC) [Entitic vol] on 08-25-2024 MCV (RBC) [Entitic vol] MCV [Entitic vol ume] by Automated count 81.0-99.0 [facility] Monocytes Auto (Bld) [#/Vol] on 08-25-2024 Monocytes (Bld) [#/Vol] Automated blood monocyte count 0.3-0.8 [facility] Monocytes/100 WBC Auto (Bld) on 08-25-2024 Monocytes/100 WBC (Bld) Automated monocyte % 1. 7-12.0 [facility] Neutrophils Auto (Bld) [#/Vo l]on 08-25-2024 Neutrophils (Bld) [#/Vol] Neutrophils [#/volume] in Blood by Automated count 1.4-6.5 [facility] Neutrophils/100 WBC Auto (Bl d)on 08-25-2024 Neutrophils/100 WBC (Bld) Automated neutrophil % 43.0-75.0 [facility] No Panel Informationon 08-25 Eosinophils # (Auto) 0.1 10 3/uL 0.0-0.7 [facility] Immature Granulocyte # (Auto) 0.01 10 3/uL 0.00-0.03 [facility] Platelet mean volume Auto (B ld) [Entitic vol]on 08-25-2024 Platelet mean volume (Bld) [Entitic vol] Platelet mean volume [Entitic volume] in Blood by Automated count Low 9.5-13.5 [facility] Platelets Auto (Bld) [#/Vol] on 08-25-2024 Platelets (Bld) [#/Vol] Platelets [#/vol ume] in Blood by Automated count 150-450 [facility] RBC Auto (Bld) [#/Vol]on RBC (Bld) [#/Vol] Erythrocytes [#/volume] in Blood by Automated count 4.20-5.40 [facility] Serum or plasma anion gap de terminationon 08-25-2024 Anion gap [Moles/Vol] Serum or plasma anion gap determination [facility] CT ANGIO CARDIAC WITH SIMEON RY ARTERIESon 06-22-2024 CT ANGIO CARDIAC WITH CORONARY ARTERIES [facility] CT Report Name: MARIANNA RAMIREZ : [...] TYPE: Calcium score, Coronary CT Angiography SCANNER NATIONAL COVERAGE SPECIALIST: [employer] SCANNER MODEL: NAEOTOM Alpha DOSE REDUCTION ALGORITHM: [...] RADIATION DOSE (more content not included)... Normal [facility] CT Report Name: SAKINA RAMIREZBob Kearney : 1975 Scan Date: 2024-06-22 12:26:45 Electronically [...] TYPE: Calcium score, Coronary CT Angiography SCANNER NATIONAL COVERAGE SPECIALIST: [employer] SCANNER MODEL: [employer] Alpha DOSE REDUCTION ALGORITHM: Helical with dose modulation SCAN COVERAGE ZONE: Coronary Arteries EKG GATED: Yes GENERAL -------- CONTRAST AGENT ------ CONTRAST AGENT USED? (more content not included)... CARDIOLOGY Jatinder Phipps MD - 06/22/2024 [facility] CT Report Name: MARIANNA RAMIREZ : [...] TYPE: Calcium score, Coronary CT Angiography SCANNER NATIONAL COVERAGE SPECIALIST: [employer] SCANNER MODEL: [employer] DOSE REDUCTION ALGORITHM: Helical with dose modulation [...] B-BLOCKERS, ORAL DOSE (more content not included)... [facility] Rad[facility] Study observation (narrative) [facility] COVID CepheidOrdered By: Byron Kim on 05-24-2024 SARS-CoV-2 (COVID-19) Ab IA Ql Negative Negative [facility] Comment on above: This is a duplicate Cepheid Xpert Xpress CoV-2/Flu/RSV Plus RNA by RT-PCR result to be used for statistical tracking purpose only. SARS-CoV-2 (COVID-19) RNA AMY+probe Ql (Unsp spec) [facility] COVID-19 / Flu A/B / RSV [...] or Cepheid Disclaimer revoked sooner. PERFORMED BY: [place] [address] PATHOLOGIST [employer] RUSS MAHAN M.D. Normal [facility] Comment on above: Performed By: #### C EPHEID NEG, COVID19 FLU RSV #### [facility] [address] [place] [address] [facility] Cepheid COVID PCR Negativeon 05-24-2024 SARS-CoV-2 (COVID-19) RNA AMY+probe Ql (Unsp spec) Negative Normal Negative [facility] Comment on above: Result Comment: This is a duplicate Cepheid Xpert Xpress CoV-2/Flu/RSV Plus RNA by RT-PCR result to be used for statistical tracking purpose only. PERFORMED BY: [place] [address] PATHOLOGIST [employer] RUSS MAHAN M.D. Performed By: #### C EPHEID NEG, COVID19 FLU RSV #### [facility] [address] [place] [address] HCG ( test) IADirapi d Ql (U)Ordered By: Wayne Metcalf on 05-24-2024 HCG ( test) Ql (U) Negative [facility] HCG,Urineon 05-24-2024 Beta HCG ( test) Ql (U) Negative Normal [facility] Comment on above: Result Comment: PERF ORMED BY: [place] [address] PATHOLOGIST [employer] RUSS MAHAN M.D. Performed By: #### U HCG #### [address] Jasvir 05-24-2024 L Specimen: [id number] Received: 05/24/24 Status: LYNN Isabel Num: [id number] Spec Type: Surgical Subm Dr: Ever Woodward DO Tissues: A THYROID - Lobe (L THYROID AND ISTHMUS) B THYROID - Lobe (L POST CAPSUL) Procedures: HE/17, Gross/Micro L5/2, FS HE/2 Age/ Patient Sex Location Account Attending Physician Marianna Ramirez 49/F [place] [id number] Ever Woodward DO SPEC NUM: [id number] RECD: 05/24/24 STATUS: LYNN ISABEL NUM: [id number] RADHA: 05/24/[address] [facility] [address]: Ever Woodward DO ENTERED: 05/24/[address] [facility] [address]: SPEC TYPE: Surgical DEPT: S ENTERED BY: [id number] RECV BY: [id number] ORDERED: HE/17, Gross/Micro L5/2, FS HE/2 ORDERED: [...] Left lobectomy with isthmusectomy (hemithyroidectomy) TUMOR Specimen: [id number] Received: 05/24/24 Status: LYNN Isabel Num: [id number] Spec Type: Surgical Subm Dr: Ever Woodward DO Tissues: A THYROID - Lobe (L THYROID AND ISTHMUS) B THYROID - Lobe (L POST CAPSUL) Procedures: HE/17, Gross/Micro L5/2, FS /2 Patient: Marianna Ramirez [id number] (Continued) Specimen: [id number] Received: 05/24/24 (Continued) Pathological Diagnosis (Continued) Signed (signature on file) Clarisa Ascencio MD 05/29/24 1848 Specimen: [id number] Received: 05/24/24 Status: LYNN Isabel Num: [id number] Spec Type: Surgical Subm Dr: Ever Woodward DO Tissues: A THYROID - Lobe (L THYROID AND ISTHMUS) B THYROID - Lobe (L POST CAPSUL) Procedures: HE/17, Gross/Micro L5/2, FS HE/2 Patient: Marianna Ramirez [id number] (Continued) Specimen: [id number] Received: 05/24/24-104 (Continued) Pathological Diagnosis (Continued) Tumor [...] Thyroid nodule, left thyroid and isthmus Specimen: [id number] Received: 05/24/24 Status: LYNN Isabel Num: [id number] Spec Type: Surgical Subm Dr: Ever Woodward, Tissues: A THYROID - Lobe (L THYROID AND ISTHMUS) B THYROID - Lobe (L POST CAPSUL) Procedures: HE/17, Gross/Micro L5/2, FS HE/2 Patient: Marianna Ramirez [id number] (Continued) ------- (more content not included)... Normal [facility] Automated basophil %Ordered By: Ever Woodward on 05-17-2024 Basophils/100 WBC (Bld) 0.5 % Normal . [facility] Comment on above: Performed By: #### B MP, CBC #### [address] Automated basophil countOrde red By: Ever Woodward on 05-17-2024 Basophils (Bld) [#/Vol] 0.0 10*3/uL Normal 0.0-0.2 [facility] Comment on above: Result Comment: PERF ORMED BY: [place] [address] PATHOLOGIST [employer] RUSS MAHAN M.D. Performed By: #### B MP, CBC #### [address] Automated blood monocyte cou ntOrdered By: Ever Woodward on 05-17-2024 Monocytes (Bld) [#/Vol] 0.5 10*3/uL Normal 0.0-0.8 [facility] Comment on above: Performed By: #### B MP, CBC #### [address] Automated eosinophil %Ordere d By: Ever Woodward on 05-17-2024 Eosinophils/100 WBC (Bld) 1.2 % Normal . [facility] Comment on above: Performed By: #### B MP, CBC #### [address] Automated eosinophil countOr dered By: Ever Woodward on 05-17-2024 Eosinophils (Bld) [#/Vol] 0.1 10*3/uL Normal 0.0-0.45 [facility] Comment on above: Performed By: #### B MP, CBC #### [address] Automated monocyte %Ordered By: Ever Woodward on 05-17-2024 Monocytes/100 WBC (Bld) 7.7 % Normal . [facility] Comment on above: Performed By: #### B MP, CBC #### [address] Automated neutrophil %Ordere d By: Ever Woodward on 05-17-2024 Neutrophils/100 WBC (Bld) 74.3 % Normal . [facility] Comment on above: Performed By: #### B MP, CBC #### [facility] [address] Basic Metabolic Panelon 05-07 GFR/1.73 sq M.predicted MDRD (S/P/Bld) [Vol rate/Area] mL/min/{1.73_m2} Normal [facility] Comment on above: Performed By: #### B MP, CBC #### [facility] [address] [place] [id number] [facility] Basic metabolic 1998 panelon 05-17-2024 Anion gap [Moles/Vol] 10.3 mmol/L 6.0 - 15.0 [facility] Calcium [Mass/Vol] 9.4 mg/dL 8.6 - 10. 3 mg/dL [facility] Chloride [Moles/Vol] 104 mmol/L 98 - 10 7 mmol/L [facility] CO2 [Moles/Vol] 28.9 mmol/L 21.0 - 31.0 mmol/L [facility] Creatinine (U) [Mass/Vol] 0.74 mg/dL 0.60 - 1.20 mg/dL [facility] GFR/1.73 sq M.predicted MDRD (S/P/Bld) [Vol rate/Area] mL/min/{1.73_m2} [facility] Glucose [Mass/Vol] 105 mg/dL High 70 - 100 mg/dL [facility] Comment on above: Random Glucose Refer ence Range is dependent on time and content of last meal. Glucose of more than 200 mg/dL in a nonstressed, ambulatory subject supports the diagnosis of Diabetes Mellitus. ADA recommended reference range Interpretation and review of laboratory results Abnormal [facility] Potassium [Moles/Vol] 4.2 mmol/L 3.5 - 5.1 mmol/L [facility] Sodium [Moles/Vol] 139 mmol/L 136 - 145 mmol/L [facility] Urea nitrogen [Mass/Vol] 12 mg/dL 7 - 25 mg/dL [facility] CBC W Auto Differential pane l (Bld)on 05-17-2024 Basophils (Bld) [#/Vol] 0.0 10*3/uL 0.0 - 0.2 10*3/uL [facility] Basophils/100 WBC Manual cnt (Syn fld) 0.5 % . [facility] Eosinophils (Bld) [#/Vol] 0.1 10*3/uL 0.0 - 0.45 10*3/uL [facility] Eosinophils/100 WBC Manual cnt (Syn fld) 1.2 % . [facility] Erythrocyte distribution width (RBC) [Ratio] 12.6 % 11.9 - 15.3 % [facility] Hematocrit (Bld) [Volume fraction] 38.0 % 34.0 - 46.4 % [facility] Hemoglobin (Bld) [Mass/Vol] 13.3 g/dL 11.8 - 15.4 g/dL [facility] Lymphocytes (Bld) [#/Vol] 1.1 10*3/uL 1.00 - 4.8 10*3/uL [facility] Lymphocytes/100 WBC Manual cnt (Syn fld) 16.3 % . [facility] MCH (RBC) [Entitic mass] 31.0 pg 24.7 - 34.3 pg [facility] MCHC (RBC) [Mass/Vol] 35.0 g/dL 32.0 - 35.0 g/dL [facility] MCV (RBC) [Entitic vol] 88.4 fL 80 - 100 fL [facility] Monocytes (Bld) [#/Vol] 0.5 10*3/uL 0.0 - 0.8 10*3/uL [facility] Monocytes+Macrophages/1 00 WBC Manual cnt (Syn fld) 7.7 % . [facility] Neutrophils (Bld) [#/Vol] 4.9 10*3/uL 1.8 - 7.7 10*3/uL [facility] Neutrophils/100 WBC Manual cnt (Syn fld) 74.3 % . [facility] NRBC 0.1 /100{WBC} 0 - 0.5 /100{WBC} [facility] Platelet mean volume (Bld) [Entitic vol] 7.5 fL 6.3 - 10.7 fL [facility] Platelets (Bld) [#/Vol] 259 10*3/uL 150 - 450 10*3/uL [facility] RBC LM.HPF (Urine sed) [#/Area] 4.30 /[HPF] 3.60 - 5.00 [facility] WBC (Bld) [#/Vol] 6.6 10*3/uL 3.8 - 11.6 10*3/uL [facility] WBC LM.HPF (Urine sed) [#/Area] 6.6 10*3/uL 3.8 - 11.6 10*3/uL [facility] Calcium [Mass/volume] in Ser um or PlasmaOrdered By: Ever Woodward on 05-17-2024 Calcium [Mass/Vol] 9.4 mg/dL Normal 8.6-10.[address] [facility] Comment on above: Result Comment: PERF ORMED BY: [place] [address] PATHOLOGIST [employer] RUSS MAHAN M.D. Performed By: #### B MP, CBC #### [address] Carbon dioxide, total [Moles /volume] in Serum or PlasmaOrdered By: Ever Woodward on 05-17-2024 CO2 [Moles/Vol] 28.9 mmol/L Normal 21.0-31.0 [facility] Comment on above: Performed By: #### B MP, CBC #### [address] Chloride [Moles/volume] in S david or PlasmaOrdered By: Ever Woodward on 05-17-2024 Chloride [Moles/Vol] 104 mmol/L Normal 98-107 [facility] Comment on above: Performed By: #### B MP, CBC #### [address] Complete Blood Count Auto Di ffon 05-17-2024 Mean Corpuscular HGB Conc 35.0 g/dL Normal 32.0-35.0 [facility] Comment on above: Performed By: #### B MP, CBC #### [place] [address] [place] NRBC% 0.1 /100{WBC} Normal 0-0.5 [facility] Comment on above: Performed By: #### B MP, CBC #### [place] [address] [place] Creatinine [Mass/volume] in Serum or PlasmaOrdered By: Ever Woodward on 05-17-2024 Creatinine [Mass/Vol] 0.74 mg/dL Normal 0.60-1.20 [facility] Comment on above: Performed By: #### B MP, CBC #### [facility] [address] [place] [address] ECG 12 lead ECGon 05-17-2024 ECG 12 lead ECG [facility] [place] [address] [place] [address] Electrocardiograph Report Signed Patient: Marianna Ramirez MR#: [id number] : 1975 Acct:[id number] Age/Sex: 49 / F ADM Date: 05/17/24 Loc: Room: Type: [facility] Attending Dr: Ever Woodward DO Ordering Provider: [...] previous ECGs available Confirmed by Katlin Dean ([id number]) on 05/18/2024 12:40:53 AM Referred By: Electronically Signed By: Katlin Dean Transcribed By: MUS Signed By Katlin Dean MD 4 0040 Normal [facility] Erythrocyte distribution wid th [Ratio] by Automated countOrdered By: Ever Woodward on 05-17-2024 Erythrocyte distribution width (RBC) [Ratio] 12.6 % Normal 11.9-15.3 [facility] Comment on above: Performed By: #### B MP, CBC #### [facility] [address] [place] [address] Erythrocytes [#/volume] in B lood by Automated countOrdered By: Ever Woodward on 05-17-2024 RBC (Bld) [#/Vol] 4.30 10*6/uL Normal 3.60-5.00 [facility] Comment on above: Performed By: #### B MP, CBC #### [address] Glucose [Mass/volume] in Ser um or PlasmaOrdered By: Ever Woodward on 05-17-2024 Glucose [Mass/Vol] 105 mg/dL High 70-[address] [facility] Comment on above: ADA recommended refe rence rangeRandom Glucose Reference Range is dependent on time and content of last meal. Glucose of more than 200 mg/dL in a nonstressed, ambulatory subject supports the diagnosis of Diabetes Mellitus. Result Comment: [place] om Glucose Reference Range is dependent on time and content of last meal. Glucose of more than 200 mg/dL in a nonstressed, ambulatory subject supports the diagnosis of Diabetes Mellitus. ADA recommended reference range Performed By: #### B MP, CBC #### [address] Hematocrit [Volume Fraction] of Blood by Automated countOrdered By: Ever Woodward on 05-17-2024 Hematocrit (Bld) [Volume fraction] 38.0 % Normal 34.0-46.4 [facility] Comment on above: Performed By: #### B MP, CBC #### [address] Hemoglobin [Mass/volume] in BloodOrdered By: Ever Woodward on 05-17-2024 Hemoglobin (Bld) [Mass/Vol] 13.3 g/dL Normal 11.8-15.4 [facility] Comment on above: Performed By: #### B DEIDRA, CBC #### [address] Leukocytes [#/volume] correc vladimir for nucleated erythrocytes in Blood by Automated counOrdered By: Ever Woodward on 05-17-2024 WBC corrected for nucl RBC Auto (Bld) [#/Vol] 6.6 10*3/uL 3.8-11.6 [facility] Leukocytes [#/volume] in Blo od by Automated countOrdered By: Ever Woodward on 05-17-2024 WBC (Bld) [#/Vol] 6.6 10*3/uL Normal 3.8-11.[address] [facility] Comment on above: Performed By: #### B MP, CBC #### [address] Lymphocytes [#/volume] in Bl ood by Automated countOrdered By: Ever Woodward on 05-17-2024 Lymphocytes (Bld) [#/Vol] 1.1 10*3/uL Normal 1.00-4.8 [facility] Comment on above: Performed By: #### B MP, CBC #### [address] Lymphocytes/100 leukocytes i n Blood by Automated countOrdered By: Ever Woodward on 05-17-2024 Lymphocytes/100 WBC (Bld) 16.3 % Normal . [facility] Comment on above: Performed By: #### B MP, CBC #### [address] MCH [Entitic mass] by Automa vladimir countOrdered By: Ever Woodward on 05-17-2024 MCH (RBC) [Entitic mass] 31.0 pg Normal 24.7-34.3 [facility] Comment on above: Performed By: #### B MP, CBC #### [address] MCHC Auto (RBC) [Mass/Vol]Or dered By: Ever Woodward on 05-17-2024 MCHC (RBC) [Mass/Vol] 35.0 g/dL 32.0-35.0 [facility] MCV [Entitic volume] by Auto mated countOrdered By: Ever Woodward on 05-17-2024 MCV (RBC) [Entitic vol] 88.4 fL Normal 80-100 [facility] Comment on above: Performed By: #### B MP, CBC #### [address] Neutrophils [#/volume] in Bl ood by Automated countOrdered By: Ever Woodward on 05-17-2024 Neutrophils (Bld) [#/Vol] 4.9 10*3/uL Normal 1.8-7.7 [facility] Comment on above: Performed By: #### B MP, CBC #### [address] No Panel InformationOrdered By: Ever Woodward on 05-17-2024 Estimated GFR (CKD-EPI) > 60.0 mL/Min [facility] Creatinine Clearance (Chem N/A [facility] Nucleated erythrocytes [Pres ence] in Blood by Automated countOrdered By: Ever Woodward on 05-17-2024 Nucleated RBC Auto Ql (Bld) 0.1 /100{WBC} 0-0.5 [facility] Platelet mean volume [Entiti c volume] in Blood by Automated countOrdered By: Ever Woodward on 05-17-2024 Platelet mean volume (Bld) [Entitic vol] 7.5 fL Normal 6.3-10.7 [facility] Comment on above: Performed By: #### B MP, CBC #### [address] Platelets [#/volume] in Bloo d by Automated countOrdered By: Ever Woodward on 05-17-2024 Platelets (Bld) [#/Vol] 259 10*3/uL Normal 150-450 [facility] Comment on above: Performed By: #### B MP, CBC #### [address] Potassium [Moles/volume] in Serum or PlasmaOrdered By: Ever Woodward on 05-17-2024 Potassium [Moles/Vol] 4.2 mmol/L Normal 3.5-5.1 [facility] Comment on above: Performed By: #### B MP, CBC #### [address] Serum or plasma anion gap de terminationOrdered By: Ever Woodward on 05-17-2024 Anion gap [Moles/Vol] 10.3 mmol/L Normal 6.0-15.0 [facility] Comment on above: Performed By: #### B MP, CBC #### [facility] [address] Sodium [Moles/volume] in Ser um or PlasmaOrdered By: Ever Woodward on 05-17-2024 Sodium [Moles/Vol] 139 mmol/L Normal 136-[address] [facility] Comment on above: Performed By: #### B MP, CBC #### [facility] [address] Urea nitrogen [Mass/volume] in Serum or PlasmaOrdered By: Ever Woodward on 05-17-2024 Urea nitrogen [Mass/Vol] 12 mg/dL Normal 7-25 [facility] Comment on above: Performed By: #### B MP, CBC #### [facility] [address] Gastroenterology Office/Clin ic Noteon 12-20-2023 Gastroenterology Office/Clinic [...] cm, empiric esophageal dilation performed using 58 [employer] dilator 2. Normal gastric mucosa, random [...] had negative impedance test in 2019 in [place] per her report Suspect hypersensitivity 3. Nausea (R11.0: Nausea) Discussed lifestyle modifications- lactose free diet and FODmap diet FDgard OTC Start BusPar 10mg TID I, Kathleen Pinon, personally scribed for Viral Smith MDon 12/20/2023 11:53:44. . Documentation recorded by Kathleen Pinon, accurately reflects the services I performed and decisions made by me. Viral Smith MD Follow-up With When Contact Information Luis CLINE, Viral Garcia [facility], [facility] Within 3 months [address] [facility], [address] [address] [phone] Additional Instructions: Problem Lis (more content not included)... Normal [facility] Comment on above: Result Comment: Elec tronically Signed By: Luis CLINE, Viral Garcia\.br\Date and Time Signed: 12/20/23 11:57 EDT\.br\Electronically Co-Signed By: Kathleen Pinon MA\.br\Date and Time Co-Signed: 12/20/23 11:55 EDT CNPFani 10-29-2023 CNPN Telephone (NECVS8) MARIANNA RAMIREZ ([id number]) 1975 F Date Time Provider Department 10/29/23 ALICIA BOLIVAR NECVS8 During your visit today, we recorded the following information about you: Rina Lord 10/29/2023 4:48 PM Signed CV PHONE Name of caller : Avis Relationship to patient : [facility] If not self Will need patient permission to release results or disclose health information with called documented in . Patient identified by Name and Date of . ( Marianna Ramirez, 1975). Yes Number to return call [phone] Reason for Call: Avis is calling from [facility] to obtain notes and information for prior Auth of MRI WO IVCON. Sent: Thank you calling [facility]. You will receive a return [...] 2:24 PM Signed Received faxes from [facility] with results Jatinder Valle RN 11/15/2023 9:55 AM Signed Returned fax with cover letter stating below: Thank you for the MRI report, please push images electronically to [facility] for further review by Dr. Bolivar's office. Thanks! Jatinder Valle RN [phone], option 2 Allergies As of Date: 10/29/2023 [...] sites [M25.60] 05/21/2016 Encounter Status:Closed by RINA LODR on 10/29/23 [facility] MARIANNA RAMIREZ ([id number]) 1975 F Date Time Provider Department 10/25/23 [...] Ramirez, 1975). Yes Number to return call [phone] Reason for Call: Symptoms Call: Symptoms: headache [...] something else going on. Thank you calling [facility]. You will receive a return call within [...] per via [employer] on Wednesday10/26/2023 tracking # [id number] Allergies As of Date: 10/25/2023 Noted Allergy [...] Status:Closed by CARMITA GIRALDO on 10/25/23 Normal [facility] Ambulatory Visit Summaryon 0 05-04-2023 Ambulatory Visit Summary MARIANNA RAMIREZ :1975 MRN: Visit Date:05/04/2023 Ambulatory Visit Instructions Your Diagnosis [...] any. Fruits (more content not included)... Normal [facility] Gastroenterology Office/Clin ic Noteon 05-04-2023 Gastroenterology Office/Clinic [...] Previous labs (more content not included)... Normal [facility] Comment on above: Result Comment: [...] grapefruit, pineapple, and jeff. Vegetables Deep-fried vegetables. Swedish fries. Any vegetables prepared with added fat. [...] reflux di (more content not included)... Normal [facility] 04-12-2023 [facility] Telephone (NECVS8) MARIANNA RAMIREZ ([id number]) 1975 F Date Time Provider Department 04/12/23 ALICIA BOLIVAR NECVS8 During your visit today, we recorded the following information about you: [facility] 04/12/2023 11:59 AM Signed CV PHONE Name of caller : Marianna Relationship to patient : Self If not self Will need patient permission to release results or disclose health information with called documented in fyi. Patient identified by Name and Date of . ( Marianna Ramirez, 1975). Yes Number to return call [phone] Reason for Call: Patient Question/Update: Marianna is calling to say she developed an allergy to contrast and cannot have MRI W/WO. Also she would like to know if she can have it done locally. Please call. Thank you calling [facility]. You will receive a return call within [...] Status:Closed by JATINDER VALLE on 04/14/23 Normal [facility] Provider Letteron 01-28-2023 Provider Letter January 28, 2023 MARIANNA RAMIREZ [address] [place] [phone] : 1975 Dear Marianna , We have been trying to reach you with no success. It is important that you return our call regarding your ultrasound results upon receiving this letter. Also, at the time of your call, please provide us with your current information. Thank you for your prompt attention to this matter. Sincerely, [facility] [phone] [facility] RAD - Ultrasound Reporton RAD - Ultrasound Report [id number] #1.00CD:127 Normal [facility] Gastroenterology Office/Clin ic Noteon 01-13-2023 [...] was negative. Patient reported during visit with nv 12/2022 that over the last 4 months [...] changes, gastric (more content not included)... Normal [facility] Comment on above: Result Comment: Elec tronically Signed By: Jessica Lopez CNP\latanya\Date and Time Signed: 01/13/23 10:40 EDT Patient [...] these instructions at home: Medicines ? Take ebcu-jdn-uxfrevj and prescription medicines only as told by your health care provider. ? If you were prescribed an antibiotic medicine, take it as told by your health care provider. Do not stop taking the antibiotic even if you start to feel better. Eating and drinking ? Make any diet changes as told by your health care provider. ? Work with a diet and nutritional health coach (dietitian) to create an eating plan that [...] person's throa (more content not included)... Normal [facility] Lab Reportson 01-12-2023 Lab Reports [id number] #1.00CD:127 Normal [facility] Reportson 01-07-2023 Lab Reports [id number]# 1.00CD:127 Normal [facility] IntraOperative Documentson 0 01-01-2023 IntraOperative Documents [id number]#1.00CD:127 [facility] Postoperative Documentson Postoperative Documents [id number]#1.00CD:127 [facility] Coding Summary.on 12-30-2022 Coding Summary. CD:[id number] Ww+PGhlYWQ+RB7XPDWrY 95ezYPhaV4pL9FLFYkVE ywgQVBQTElOSyIgbmFtZ S1jlVMrAIJn IC8+KT4oBEFwRffriBYy k9N7gWZ9P76zxe2nGTgq wSN3NNUaGxGxhpuiz3zg wYo1JNgaTngtJoYb KIVbuQ59PDU8aE70Kg08 eRMviXZhv7ivmUn3PvDd KANcPAS4eDkoMRamv5Ug HESvY99anQRjo3L3 IGNvbGxhcHNlOyBlbXB0 iO9iRJzeczetn8fxlglg Vdd8pb16oLZeb4D5wKF3 K6TrpiX0PZYenNFm CojqeQWXyK1tymkil5as rzsbGtXrZMTlLPl7KRc9 XKFomBbjIyNlRV85TKB5 MXLyioBiN4OyREGy pRxiOkJ5x5H5Hj3MB8NB KptlT1OSUMMOAUfrbCZ+ EY59yc47W3JjYqxjHef5 OTBhAZH3rIC1wU2a RNKeNZsmb1C4rUA3Y9Le wcFjce4tc6wpFSRkMUby R88wpHDmw9X0QMTakCI8 UDOqkPwbIyVyfC67 Oyc+LHKreXgnj1TqYirr k5nzx7wzbSv1BnrgKCWs zeLriJorJQL0a7OjIt4e HPPbpIU7wVE9zL6r CoQuNlQ6JMliE837CkIq dQFzMhueE14iD2YibWR+ HLAxBcb5RRAjgVwiOM2h W0WlCRYpxjxxhGHf xOcpDB5xLGUqvrjsUVQr tP0sJSHtJ9v6MlPvPgX2 YSwsJ2NbJCKfoleuPb23 nO4wFtHdKnZ0BEve Z9KuusR0JOTbjRHsXVlj OAF6F65zi0G4DUIlBIAe LWI2tTW1wR5hvMghixtq bGVmdDsgdmVydGlj SDxzBWavD212QBMucFwp PkNvZGluZyBEYXRlOiAg MDQvMjYvMjAyMzwvdGQ+ DFQuNAP6eBrbRKIq bFZwBBiiIb3teXeesKzb SE0oTVJuxtcaKXAwrL1p BWPcsDGshYvmEQ0gRLDr ktdao490RpCkEMV1 HNRygOWaO9LzvQ4cPoLf DNNzWXVfK0DlxNXoVEdh J948KGphWqQ8YQSbxbMt U9XgRBMuuNymLdD0 t5A0Lh2Bv9KaeqswN9Gu pZPtCgXnTjleZPs5F2Gc PjwvdHI+MS26ZYRqSA20 VSi6NZK7wZtfTWdd AJVuN1GtmJ5uZwUuWYFu ZGRkOyc+PHRhYmxlIHdp ZHRoPScxMDAlJyBzdHls HM0kWx4uLUAgYLIb oUutuPZtRoCai2miONHq LWamBG2txZntP2HhmUG5 YAYek2w1Dp17M97mA7Dz dXA+SFAymDN4iRB5 pY6bRyCbCtZ1DBhcD743 BkPhiFZvRmciz7vth5xw gCx2CfP2YVCktwGqaZkk EHU7c1LdNb42E02h IHdpZHRoPSIxNSUiIHZh mOchtq6huN5kKn0+PGNv lKX7hDQ0bH3oAeXqAtU4 AOvwL265KxOtdLSw Jrjyw2pbs5icqEs1DsSw QVRkstXimEozDFN4q0Wc Vr57X2YxtIntr1NgHwj7 if34nGDik1X1kVR5 M3KzMJWxsojwvPJcgXtt QY3jPVSieymwGWXjfB5s QMJiQ0r4EdZoNfD2VRoz W3LtnnS2UOBscDWq BMPpxCXWlU5yavsku5vr cfyzVkWeBVCwIEw4VOp7 TTPerUjhSzKqVHB4PxE8 AKY2wTOqbA0lsZws zekliU9mQwv+YSR8oPEv wKGRYY6wMbmebBU+PHRk DUZ9nCbqSYfmLEIbmI1c SEFjN9x3EuEtJmU8 DRmpN4DpnmP3WNYndQHb KIPvzWSCfX7eldmac9if xpfiWaOtCABiVAb4MYx6 LWFsaWduOiBsZWZ0 BjG4PIQ8gXBcsW9ebXna godzcJ5iYgt+QmlydGgg GLP4PEj4L7HkMka5BFDj mRlvRH3njIWsRZkd Sc8qzHuetNrqOK0kKGXd yiupm597BqMgx0mjCEMk bBNlIQfyWBR7S96zx3P3 XRZnPYHqNAL5kFR4 uY2umKkvjmqnwNKnwGff woOfhPedFVmxPIhfL717 IJYmsVqiTnRfQIp8X7Mf Hpq4IQSjoFgmKM9f jNKiRZetOd8bcYmgrRbc LM5pBWGzfienp486TmPm p1goLDBwgVOvHMmvDFI4 M74fa8K1UDPnRUFz PJS0lXP8fI1snNtawxon bGVmdDsgdmVydGljYWwt XDgkO187SAPhbBpyIrZl mRj2B0AoUhz0ZLLu eHpnFG6wiTQyCZmgSx4a mQrrwGfrKB3oLDWgnbrx c647SfDqt3kmJHRsxWKj SSqmHCW7Q15rl6Q2 FGFjENBzKUH9iZF8rK0h bGlnbjogbGVmdDsgdmVy tHcaOUxaRNkgK109NPKn cDsnPlBhdGllbnQg WSnaJXb4V4QyBryauHH+ ZA79UCYdEI46zRUdvXMd z5frwHk4ElPgBRSyCCK0 rYxiZBoue0TnOBMt D10yzQAvp2Y3GRLnlNmu cTVuXbYlkOS9fL9pEEil bsxoo1mtzynxSwgpp8pr jy99nM97T13mIUhx ZHRoPSIzMCUiIHZhbGln ip0dzX0nZf5+PGNvbCB3 hDM6mK1kSYMdKtM6ZOlo U460CpNxmTYxQtqa c2qzd0qfyFv3XzD2WVZn erUcnTekWXX9e0GmZe84 Q69fRWbxUZCrWKKcDEVt URXcmDzbxf4bfE3n Ii8+VOUgoVC0vEQ8wU3c YmJsYkV8AChfU454JwTy pDUpUtyhT84cK4VzfUF+ KRFbWko8TIBkcVcb PW4oqOTpVAnvXx0lVLK4 ChFeBkWtTOtwL3AcYYIk rzxcrqujbQR8MAJyDQGv wA23Vw6ehCgzPMYs mOBFdW4cchhjg0julxgf VlGbGZNlXNn7QFv1GHVi bHgrFlSoZJN5RsZ7MNX9 qSWxyE4ipVylxfcf oU1zC3EkENGlbadtZt64 mC4bAsBbSuD7PHetXju+ MNKJGcBBVXxnJJsQH2QP PP00MQ11pMTmm3Y0 wPF0U2HsHXEjywsmlnbx lJZ0SDZmGPTqpD79jASd PTfoNw5xp3O0s261ILXh LXAnlK92Iw1qyZmd ZAQmbUPAbT2vtcgaf2id rzbdTaFeSKObNZa8NGx0 CYYttNymMoQeEKN9GbW2 VLH4yXFhlP0xbPbb uzjweZ4aLby+MDkvMDMv PSy2RAbffKC+PHRkIHN0 gXqdWPxlYDCwaQ9kNYDk K0j5NvYxNdB9AOsv Z7WeYXSpqwdvEl61pD7q XxPhOaU3YFnfY5LdayQ3 TOHbuGKlVZruIBE9L24n w1V4LJWyWTYeJZJ1 vPO1eR4xbVkiplurmHWc dDsgdmVydGljYWwtYWxp Q983KJEueEwwIeB2MYnk WWQgEZ61EE26aCPf i9J5wLY0Y5MzIUPnsned fzupvPS4BPZaWHVvcY36 oGYqEQejQa4ts0C7m062 NRGoMCOasL46Nv9j qMspUTQdvFVYsG2vaxwo a8rixibaAkOzANKtVKt4 ETe0CEPqaScwOpNoNZN2 XxL8QOK7bBGloP5u oZuyawxzoB0oAzp+RmVt FHsuHY60WV58iXFxt9C6 dNP8E0SnFQUrpqnqnomx fQN8KWFwMQCemQ37 gEKwYMloAb6sv5O6h029 AABxYUFokX05Nn9oqTne UIQxgRGMfB6vhjoeo0bd cjogIzAwMDAwMDt0 EYc7STKzjZqbEiRvPNR6 XlH0XHU2jCPxvK3tuNcv muondQ7kKhm+T3O0uKQ8 aWVudDwvdGQ+PC90 zo05U8JeJuicCed1HQWs VBW0wMO1qW8dWSWuWEsn j0D5iSV3F7MicxMydt4m i0hvHXWgOHqsO62l fLOij7R3JIYwwIJ8IXXs iYwiFxUjzK17Ygz+PGNv bVgkg8SkNvynb3yxe3wu eGg8FjXaDAElaiHs uDmeJIH9z7KqCd70Q95k IHdpZHRoPSIzMCUiIHZh uHwplg2ilJ1mBt5+PGNv tVK3rZT9yB4vDgMi MkJ4KVmcU882KpZejIZs Xifja3dqs2rvkYv2WfDi WQUirpSrwLlhIRQ2w3Ax Jw91C4WcbGsqu5Hh Lju0qp38xTImm3P5wSO7 P6GjLDChdupqpTSepTvo MC4rZTDhdwtqBPIbqF6q FQTkZ8q1VgXxJwQ9 DLckP0VagfQ5VGXtlFYk DKBanHDNoU6kykwhb1ie vuxpPoXsLHWtUUu9ARq9 LWFsaWduOiBsZWZ0 SzO4ZKJ5hRLsgC1agEin jkhzgZ4yPun+FIx2z2wb wUWbAY3abVR6HC26LM03 oZTix3A0tWZ5U5Dn UKZcocfxngxynNM1TQAu KGYimZ62Tf1ikBufSt6f WGZgRTW4OSXweGXcP0Vz oJ5oBfEyCEEhTRDv C8OilOAiZRkvV322VZwi DlW1KRBtuxPdS0VeZBWs uDayOaK3o1J4Dc6KVB96 ZX72EC61pHOth4D6 pGA2U3ByGALziiolusnk iOA4UEJrZTRgmP72Ki6p xOerGl6oEFQuDVS5PSHf lRQnF3KibY3kPeNh DXLlOHNuN5CbjHRnXAoe R739XPdbVqV2BPInlkZt D5ZyZYCwmMryFwD6k3R4 Hx2AKj19CA56QD37 rXDlp8D7lIS2R5LlMIPs boimdwuhvEO7WPEgUCAv dX78Vu2vuApcLg7xSEIp XZC7TWQjsCLaY0Nu sN6uTfTxWVVlGEMpV9Av eMRuRArxS946MYngVmD0 RQIdpkXkE1SdSRUxgSdq DkJ0l2I8Lt9VBVmd kfd5T5VdCpojgON+PC90 CGWlCQ37jXNwgTSkk1vh eVb7MaQjYPSuONG8fMov IHzyi5HxCGTyA90l wEQco9M7 (more content not included)... Normal [facility] Consenton 12-30-2022 Consent [id number] 6#1.00CD:127 Normal [facility] Discharge Instructionson Discharge Instructions [id number] 5#1.00CD:127 Normal [facility] OVA AND PARASITE EXAMINATION on 12-30-2022 Ova + Parasite Exam Final report Normal [facility] Comment on above: Result Comment: Thes e results were obtained using wet preparation(s) and trichrome stained smear. This test does not include testing for Cryptosporidium parvum, Cyclospora, or Microsporidia. Performed By: #### C BC #### [facility] [address] [place] [address] Dr. Belkis Ascencio Result 1 Comment Normal [facility] Comment on above: Result Comment: No o va, cysts, or parasites seen. . One negative specimen does not rule out the possibility of a parasitic infection. Performed By: #### C BC #### [facility] [address] [address] [address] Belkis Ascencio Main OR Intraoperative Recor don 12-29-2022 Main OR Intraoperative Record IntraOp Document Type FT Summary Primary Physician: Petty AMBROSE MD Finalized Date/Time: 12/29/22 13:14:21 Pt. Name: ASHLEYMARIANNA/Sex: 1975 Female Med Rec #: [id number] Physician: Petty AMBROSE MD Financial #: [id number] Pt. Type: O Room/Bed: / Admit/Disch: 12/28/22 [...] CST, Parvin Kearney Role Performed Anesthesiologist of Service Car Driver - Primary Scrub - Primary Record Time In 12/28/22 10:27:00 12/28/22 10:27:00 12/28/22 10:27:00 Time Out 12/28/22 10:40:00 12/28/22 10:40:00 12/28/22 10:40:00 Procedure EGD(.) EGD(.) EGD(.) Comments Last Modified By: Isaiah JAQUEZ, Kalpesh Colon RN, Kalpesh Colon RN, Kalpesh [...] (If Applicable) PreOp Antibiotic No Time Out Guy CLINE, Frank Given Participants S., Kalpesh Colon RN, Ghada POWERHOUSE LABORER, MONSERRAT Carreno MD, Maher Time Out Complete [...] Arm P (more content not included)... Normal [facility] Consent for Treatmenton 12-06 Consent for Treatment [id number] #1.00CD:127 Normal [facility] Endoscopic Procedure Report - Otheron [...] cm, empiric esophageal dilation performed using 58 Swedish Foster dilator 2. Normal gastric mucosa, random [...] cm, empiric esophageal dilation performed using 58 Swedish Foster dilator 2. Normal gastric mucosa, random biopsies obtained from antrum, incisura, gastric body and fundus 3. Normal duodenum Recommendations: 1. Awaiting pathology report. 2. GI clinic follow-up in 2 weeks Normal [facility] Comment on above: Result Comment: Elec tronically Signed By: Petty AMBROSE MD\.br\Date and Time Signed: 12/28/22 10:38 EDT Other Comment: Chaparrita howard Attachment - attachment storage system not supported [id number] Can be viewed in source systemMissing Attachment - attachment storage system not supported [id number] Can be viewed in source systemMissing Attachment - attachment storage system not supported [id number] Can be viewed in source systemMissing Attachment - attachment storage system not supported [id number] Can be viewed in source systemMissing Attachment - attachment storage system not supported [id number] Can be viewed in source systemMissing Attachment - attachment storage system not supported [id number] Can be viewed in source system Main OR PACU I Recordon 12-06 Main OR PACU I Record PACU Phase I Document Type FT Summary Primary Physician: Petty AMBROSE MD Finalized Date/Time: 12/28/22 11:26:29 Pt. Name: MARIANNA RAMIREZ/Sex: 1975 Female Med Rec #: [id number] Physician: Petty AMBROSE MD Financial #: [id number] Pt. Type: O Room/Bed: / Admit/Disch: 12/28/22 [...] By: Deja Ken RN 12/28/22 11:26 Normal [facility] Main OR Preoperative Recordo n 12-28-2022 Main OR Preoperative Record Holding Area Document Type FT Summary Primary Physician: Petty AMBROSE MD Finalized Date/Time: 12/28/22 10:00:59 Pt. Name: MARIANNA RAMIREZ/Sex: 1975 Female Med Rec #: [id number] Physician: Petty AMBROSE MD Financial #: [id number] Pt. Type: O Room/Bed: / Admit/Disch: 12/28/22 [...] By: Tess Cummins RN 12/28/22 10:00 Normal [facility] Monitor Recordon 12-28-2022 Monitor Record [id number] 8#1.00CD:127 Normal [facility] Monitor Record [id number]#1.00CD:127 Normal [facility] Progress Note-Physicianon Progress Note-Physician Patient: MARIANNA RAMIREZ Age: 47 years Sex: Female : 1975 Associated Diagnoses: None Author: Guy CLINE, Frank Peralta Postoperative Information Postoperative disposition Optimetrix number: Optimetrix number [id number]. Anesthetic utilized: General. Physical Examination Vital Signs [...] meets criteria ( To home ). Normal [facility] Comment on above: Result Comment: [...] All Problems Abdominal cramping / SNOMED CT 319638239 / Confirmed Acid reflux / SNOMED CT 337581167 / Confirmed Diarrhea / SNOMED CT 793580779 / Confirmed Dysphagia / SNOMED CT 04299738 / Confirmed RUQ pain / SNOMED CT 630716380 / Confirmed, Active Problems (5) Abdominal cramping [...] in all extremities. Gastrointestinal: Soft, Non-tender. Plan [place] [employer]hesi[employer] (ASA) physical status classification: Class II. Anesthetic Preoperative Plan: Anesthesia General. Normal [facility] Comment on above: Result Comment: Elec tronically Signed By: Guy CLINE, Frank Keenan.br\Date and Time Signed: 12/28/22 17:55 EDT Lab Reportson 12-24-2022 Lab Reports [id number] #1.00CD:127 Normal [facility] Lab Reportson 12-23-2022 Lab Reports [id number] #1.00CD:127 Normal [facility] Consent for Procedure/Surger yon 12-22-2022 Consent for Procedure/Surgery [id number] #1.00CD:127 Normal [facility] GI PANEL (PCR)on 12-22-2022 Adenovirus F 40/41 Not detected Normal NOT DETECTED [facility] Comment on above: Performed By: #### C BC #### [facility] [address] [place] [address] Dr. Belkis Ascencio Astrovirus Not detected Normal NOT DETECTED [facility] Comment on above: Performed By: #### C BC #### [facility] [address] [place] [address] Dr. Belkis Ascencio C. Diff toxin A/B Not detected Normal NOT DETECTED [facility] Comment on above: Performed By: #### C BC #### [facility] [address] [place] [address] Dr. Belkis Ascencio Campylobacter Not detected Normal NOT DETECTED [facility] Comment on above: Performed By: #### C BC #### [facility] [address] [place] [address] Dr. Belkis Ascencio Cryptosporidium Not detected Normal NOT DETECTED [facility] Comment on above: Performed By: #### C BC #### [facility] [address] [place] [address] Dr. Belkis Ascencio Cyclos. Cayetanensis Not detected Normal NOT DETECTED [facility] Comment on above: Performed By: #### C BC #### [facility] [address] [place] [address] Dr. Belkis Ascencio E. Coli O157 Not Applicable Normal Not Applicable [facility] Comment on above: Performed By: #### C BC #### [facility] [address] [place] [address] Dr. Belkis Ascencio E. histolytica Not detected Normal NOT DETECTED [facility] Comment on above: Performed By: #### C BC #### [facility] [address] [place] [address] Dr. Belkis Ascencio EAEC Not detected Normal NOT DETECTED [facility] Comment on above: Performed By: #### C BC #### [facility] [address] [place] [address] Dr. Belkis Ascencio EIEC Not detected Normal NOT DETECTED [facility] Comment on above: Performed By: #### C BC #### [facility] [address] [place] [address] Dr. Belkis Ascencio EPEC Not detected Normal NOT DETECTED [facility] Comment on above: Performed By: #### C BC #### [facility] [address] [place] [address] Dr. Belkis Ascencio ETEC Not detected Normal NOT DETECTED [facility] Comment on above: Performed By: #### C BC #### [facility] [address] [place] [address] Dr. Belkis Ascencio G. Lamblia Not detected Normal NOT DETECTED [facility] Comment on above: Performed By: #### C BC #### [facility] [address] [place] [address] Dr. Belkis ARRIAZA CONTROLS PASSED Normal [facility] Comment on above: Performed By: #### C BC #### [facility] [address] [place] [address] Dr. Belkis [facility] HEAD[facility] GI PANEL BACTERIA Normal T [facility] Comment on above: Performed By: #### C BC #### [facility] [address] [place] [address] Dr. Belkis WU ECOLI GI PANEL DIARRHEAGENIC E.COLI / SHIGELLA Normal [facility] Comment on above: Performed By: #### C BC #### [facility] [address] [place] [address] Dr. Belkis WU INFO SEE BELOW Normal [facility] Comment on above: Result Comment: EAEC - Enteroaggregative E. Coli EPEC- Enteropathogenic E. Coli ETEC- Enterotoxigenic E. Coli lt/st STEC- Shigella-like toxin-producing E. Coli stx1/stx2 EIEC- Shigella/Enteroinvasive E. Coli Performed By: #### C BC #### [facility] [address] [address] [address] Belkis WU PARASITES GI PANEL PARASITES Normal [facility] Comment on above: Performed By: #### C BC #### [facility] [address] [place] [address] Dr. Belkis WU VIRUS GI PANEL VIRUSES Normal [facility] Comment on above: Performed By: #### C BC #### [facility] [address] [place] [address] Dr. Belkis Ascencio Norovirus GI/GII Not detected Normal NOT DETECTED [facility] Comment on above: Performed By: #### C BC #### [facility] [address] [place] [address] Dr. Belkis Ascencio P. Shigelloides Not detected Normal NOT DETECTED [facility] Comment on above: Performed By: #### C BC #### [facility] [address] [place] [address] Dr. Belkis Ascencio Rotavirus A Not detected Normal NOT DETECTED [facility] Comment on above: Performed By: #### C BC #### [facility] [address] [place] [address] Dr. Belkis Ascencio Salmonella Not detected Normal NOT DETECTED [facility] Comment on above: Performed By: #### C BC #### [facility] [address] [place] [address] Dr. Belkis Ascencio Sapovirus Not detected Normal NOT DETECTED [facility] Comment on above: Performed By: #### C BC #### [facility] [address] [place] [address] Dr. Belkis Ascencio STEC Not detected Normal NOT DETECTED [facility] Comment on above: Performed By: #### C BC #### [facility] [address] [place] [address] Dr. Belkis Ascencio Vibrio Not detected Normal NOT DETECTED [facility] Comment on above: Performed By: #### C BC #### [facility] [address] [place] [address] Dr. Belkis Ascencio Vibrio Cholera Not detected Normal NOT DETECTED [facility] Comment on above: Performed By: #### C BC #### [facility] [address] [address] [address] Belkis Ascencio Y. Enterocolitica Not detected Normal NOT DETECTED [facility] Comment on above: Performed By: #### C BC #### [facility] [address] [address] [address] Belkis Ascencio RAD - Ultrasound Reporton RAD - Ultrasound Report [id number] Normal [facility] US SINGLE QUAD RT UPPERon [...] GABRIELA CONKLIN Date: 2022-12-22 12:18 Normal [facility] Ambulatory Visit Summaryon 0 12-21-2022 Ambulatory Visit Summary ANTONELLAMARIANNA GARCIA :1975 Visit Date:12/21/2022 Ambulatory Visit Instructions Your Diagnosis RUQ pain Diarrhea Abdominal cramping Acid reflux Dysphagia Tests Performed Gallbladder US -- Results Pending -- Please visit your patient portal for your results or contact your primary care physician. Your Care Team Attending Physician - Jessica Lopez CNP A Primary Care Physician - CJ LAZO MD [...] Schedule the Following Appointments Follow Up with Jessiac Lopez CNP When: Within 1 month Where: [...] ? Talk with a diet and nutritional health coach (dietitian) if you have questions about specific [...] Avocado. Pr (more content not included)... Normal [facility] CBC AUTO DIFFon 12-21-2022 BASO # 0.0 103/ul Normal 0.0-0.1 [facility] Comment on above: Performed By: #### C BC #### [facility] [address] [place] [address] Dr. Belkis Ascencio Basophils/100 WBC (Bld) 0.2 % Normal 0.2-2.0 [facility] Comment on above: Performed By: #### C BC #### [facility] [address] [place] [address] Dr. Belkis Ascencio EO # 0.1 103/ul Normal 0.0-0.7 [facility] Comment on above: Performed By: #### C BC #### [facility] [address] [place] [address] Dr. Belkis Ascencio Eosinophils/100 WBC (Bld) 0.8 % Critically low 0.9-7.0 [facility] Comment on above: Performed By: #### C BC #### [facility] [address] [place] [address] Dr. Belkis Ascencio Erythrocyte distribution width (RBC) [Ratio] 11.8 % Normal 11.0-15.0 [facility] Comment on above: Performed By: #### C BC #### [facility] [address] [place] [address] Dr. Belkis Ascencio Hematocrit (Bld) [Volume fraction] 38.2 % Normal 36.0-48.0 [facility] Comment on above: Performed By: #### C BC #### [facility] [address] [place] [address] Dr. Belkis Ascencio Hemoglobin (Bld) [Mass/Vol] 13.2 g/dL Normal 12.0-16.0 [facility] Comment on above: Performed By: #### C BC #### [facility] [address] [place] [address] Dr. Belkis Ascencio IG # 0.03 10e3/ul Normal 0.00-0.03 [facility] Comment on above: Performed By: #### C BC #### [facility] [address] [place] [address] Dr. Belkis Ascencio IG % 0.3 % Normal 0.0-0.5 [facility] Comment on above: Performed By: #### C BC #### [facility] [address] [address] [address] Belkis Ascencio LYMPH # 1.9 103/ul Normal 1.2-3.8 [facility] Comment on above: Performed By: #### C BC #### [facility] [address] [address] [address] Belkis Ascencio Lymphocytes/100 WBC (Bld) 21.0 % Normal 20.5-60.0 [facility] Comment on above: Performed By: #### C BC #### [facility] [address] [place] [address] Dr. Belkis Ascencio MANUAL DIFF REQ NO Normal [facility] Comment on above: Performed By: #### C BC #### [facility] [address] [place] [address] Dr. Belkis Ascencio MCH (RBC) [Entitic mass] 30.9 pg Normal 26.7-34.0 [facility] Comment on above: Performed By: #### C BC #### [facility] [address] [place] [address] Dr. Belkis Ascencio MCHC (RBC) [Mass/Vol] 34.6 g/dL Normal 29.9-35.2 [facility] Comment on above: Performed By: #### C BC #### [facility] [address] [place] [address] Dr. Belkis Ascencio MCV (RBC) [Entitic vol] 89.5 fL Normal 81.0-99.0 [facility] Comment on above: Performed By: #### C BC #### [facility] [address] [place] [address] Dr. Belkis Ascencio MONO # 0.7 103/ul Normal 0.3-0.8 [facility] Comment on above: Performed By: #### C BC #### [facility] [address] [place] [address] Dr. Belkis Ascencio Monocytes/100 WBC (Bld) 7.8 % Normal 1.7-12.0 [facility] Comment on above: Performed By: #### C BC #### [facility] [address] [address] [address] Belkis Ascencio NEUT # 6.5 103/ul Normal 1.4-6.5 [facility] Comment on above: Performed By: #### C BC #### [facility] [address] [address] [address] Belkis Ascencio Neutrophils/100 WBC (Bld) 69.9 % Normal 43.0-75.0 [facility] Comment on above: Performed By: #### C BC #### [facility] [address] [address] [address] Belkis Ascencio Platelet mean volume (Bld) [Entitic vol] 9.6 fL Normal 9.5-13.5 [facility] Comment on above: Performed By: #### C BC #### [facility] [address] [place] [address] Dr. Belkis Ascencio PLT 264 103/ul Normal 150-450 [facility] Comment on above: Performed By: #### C BC #### [facility] [address] [place] [address] Dr. Belkis Ascencio RBC 4.27 106/ul Normal 4.20-5.40 [facility] Comment on above: Performed By: #### C BC #### [facility] [address] [place] [address] Dr. Belkis Ascencio WBC 9.3 103/ul Normal 4.0-11.0 [facility] Comment on above: Performed By: #### C BC #### [facility] [address] [address] [address] Belkis Ascencio Gastroenterology Office/Clin ic Noteon [...] Dr. Ambrose. Previous colonoscopy 09/[address] Amborse revealed normal terminal ileum, hemorrhoids and is [...] Enteric Pane (more content not included)... Normal [facility] Comment on above: Result Comment: Elec tronically Signed By: John FARIA, Jessica Rojas\.br\Date and Time Signed: 12/21/22 13:18 EDT PROF 14(COMP METB)on 023 Albumin [Mass/Vol] 4.0 g/dL Normal 3.4-5.0 [facility] Comment on above: Performed By: #### C MP #### [facility] [address] [place] [address] Dr. Belkis Ascencio Albumin/Globulin [Mass ratio] 1.0 {ratio} Normal [facility] Comment on above: Performed By: #### C MP #### [facility] [address] [place] [address] Dr. Belkis Ascencio ALP [Catalytic activity/Vol] 43 U/L Critically low 46-116 [facility] Comment on above: Performed By: #### C MP #### [facility] [address] [address] [address] Belkis Ascencio ALT [Catalytic activity/Vol] 18 U/L Normal 14-59 [facility] Comment on above: Performed By: #### C MP #### [facility] [address] [address] [address] Belkis Ascencio Anion gap [Moles/Vol] 9.5 mmol/L Normal [facility] Comment on above: Performed By: #### C MP #### [facility] [address] [address] [address] Belkis Ascencio AST [Catalytic activity/Vol] 13 U/L Critically low 15-37 [facility] Comment on above: Performed By: #### C MP #### [facility] [address] [address] [address] Belkis Ascencio Bilirubin [Mass/Vol] 0.3 mg/dL Normal 0.2-1.0 [facility] Comment on above: Performed By: #### C MP #### [facility] [address] [place] [address] Dr. Belkis Ascencio Calcium [Mass/Vol] 9.2 mg/dL Normal 8.5-10.1 [facility] Comment on above: Performed By: #### C MP #### [facility] [address] [address] [address] Belkis Ascencio Chloride [Moles/Vol] 104 mmol/L Normal 98-107 [facility] Comment on above: Performed By: #### C MP #### [facility] [address] [address] [address] Belkis Ascencio CO2 [Moles/Vol] 29.4 mmol/L Normal 21.0-32.0 [facility] Comment on above: Performed By: #### C MP #### [facility] [address] [address] [address] Belkis Ascencio Creatinine [Mass/Vol] 0.68 mg/dL Normal 0.55-1.02 [facility] Comment on above: Performed By: #### C MP #### [facility] [address] [address] [address] Belkis Ascencio EGFR-AF BOTSWANAN >60 Normal >=60 [facility] Comment on above: Performed By: #### C MP #### [facility] [address] [address] [address] Belkis Ascencio EGFR-NON AF BOTSWANAN >60 Normal >=60 [facility] Comment on above: Performed By: #### C MP #### [facility] [address] [address] [address] Belkis Ascencio Globulin (S) [Mass/Vol] 4.2 g/dL Normal T [facility] Comment on above: Performed By: #### C MP #### [facility] [address] [address] [address] Belkis Ascencio Glucose [Mass/Vol] 92 mg/dL Normal 74-106 [facility] Comment on above: Performed By: #### C MP #### [facility] [address] [address] [address] Belkis Ascencio Potassium [Moles/Vol] 3.9 mmol/L Normal 3.5-5.1 [facility] Comment on above: Performed By: #### C MP #### [facility] [address] [address] [address] Belkis Ascencio Protein [Mass/Vol] 8.2 g/dL Normal 6.4-8.2 [facility] Comment on above: Performed By: #### C MP #### [facility] [address] [address] [address] Belkis Ascencio Sodium [Moles/Vol] 139 mmol/L Normal 136-145 [facility] Comment on above: Performed By: #### C MP #### [facility] [address] [address] [address] Belkis Ascencio Urea nitrogen [Mass/Vol] 15.0 mg/dL Normal 7.0-18.0 [facility] Comment on above: Performed By: #### C MP #### [facility] [address] [address] [address] Belkis Ascencio Urea nitrogen/Creatinine [Mass ratio] 22.1 mg/mg Normal [facility] Comment on above: Performed By: #### C MP #### [facility] [address] [address] [address] Belkis Ascencio Patient Educationon 12-22-19 23 [...] ? Talk with a diet and nutritional health coach (dietitian) if you have questions about specific [...] Bulgur wheat. Millet. Quinoa. Bran muffins. Popcorn. [place] wafer crackers. Meats and other proteins Mackay, kidney, and aparicio beans. Soybeans. Split peas. [...] Cream cheese. Sour cream. Fats and oils Pringle. Beverages Soft drinks. Other foods Cakes and [...] 08/23/2006 Document Revised: 06/27/2018 Document Reviewed: 06/27/2018 [employer] Patient Education ? 2019 [employer]. Normal [facility] BUNon 12-19-2022 Urea nitrogen [Mass/Vol] 16.0 mg/dL Normal 7.0-18.0 [facility] Comment on above: Performed By: #### B UN, CREA, LIPID, ELEC #### [facility] [address] [address] [address] Belkis Ascencio CREATININEon 12-19-2022 Creatinine [Mass/Vol] 0.87 mg/dL Normal 0.55-1.02 [facility] Comment on above: Performed By: #### C BC #### [facility] [address] [address] [address] Belkis Ascencio EGFR-AF BOTSWANAN >60 Normal >=60 [facility] Comment on above: Performed By: #### C BC #### [facility] [address] [address] [address] Belkis Ascencio EGFR-NON AF BOTSWANAN >60 Normal >=60 [facility] Comment on above: Performed By: #### C BC #### [facility] [address] [address] [address] Belkis Ascencio ELECTROLYTESon 12-19-2022 Anion gap [Moles/Vol] 10.4 mmol/L Normal [facility] Comment on above: Performed By: #### C BC #### [facility] [address] [address] [address] Belkis Ascencio Chloride [Moles/Vol] 105 mmol/L Normal 98-107 [facility] Comment on above: Performed By: #### C BC #### [facility] [address] [address] [address] Belkis Ascencio CO2 [Moles/Vol] 28.4 mmol/L Normal 21.0-32.0 [facility] Comment on above: Performed By: #### C BC #### [facility] [address] [address] [address] Belkis Ascencio Potassium [Moles/Vol] 3.8 mmol/L Normal 3.5-5.1 [facility] Comment on above: Performed By: #### C BC #### [facility] [address] [address] [address] Belkis Ascencio Sodium [Moles/Vol] 140 mmol/L Normal 136-145 [facility] Comment on above: Performed By: #### C BC #### [facility] [address] [place] [address] Dr. Belkis Ascencio LIPID PROFILEon 12-19-2022 CHOL-HDL RATIO NORM SEE BELOW Normal [facility] Comment on above: Result Comment: 3.3 - 4.4 LOW RISK 4.4 - 7.1 AVERAGE RISK 7.1 - 11.0 MODERATE RISK >11.0 HIGH RISK Performed By: #### C BC #### [facility] [address] [address] [address] Belkis Ascencio Cholesterol [Mass/Vol] 167 mg/dL Normal <=200 [facility] Comment on above: Performed By: #### C BC #### [facility] [address] [address] [address] Belkis Ascencio Cholesterol in HDL [Mass/Vol] 46 mg/dL Normal 40-60 [facility] Comment on above: Performed By: #### C BC #### [facility] [address] [address] [address] Belkis Ascencio Cholesterol in LDL [Mass/Vol] 107.8 mg/dL Normal [facility] Comment on above: Performed By: #### C BC #### [facility] [address] [place] [address] Dr. Belkis Ascencio Cholesterol.total/Eli sterol in HDL [Mass ratio] 3.6 {ratio} Normal [facility] Comment on above: Performed By: #### C BC #### [facility] [address] [place] [address] Dr. Belkis Ascencio HDL NORMAL > or = 60 mg/dl - LOW CARDIOVASCULAR RISK <40 mg/dl - HIGH CARDIOVASCULAR RISK Normal [facility] Comment on above: Performed By: #### C BC #### [facility] [address] [place] [address] Dr. Belkis Ascencio LDL CALC NORMAL SEE BELOW Normal [facility] Comment on above: Result Comment: <100 mg/dl OPTIMAL 100 - 129 mg/dl NEAR OR ABOVE OPTIMAL 130 - 159 mg/dl BORDERLINE HIGH 160 - 189 mg/dl HIGH >190 mg/dl VERY HIGH Performed By: #### C BC #### [facility] [address] [place] [address] Dr. Belkis Ascencio Triglyceride [Mass/Vol] 66 mg/dL Normal <=150 T [facility] Comment on above: Performed By: #### C BC #### [facility] [address] [place] [address] Dr. Belkis Ascencio VLDL CALC 13.2 mg/dL Normal [facility] Comment on above: Performed By: #### C BC #### [facility] [address] [address] [address] Belkis Ascencio GLYCOHEMOGLOBIN A1Con 2022 ADA RECOMMENDATION SEE BELOW Normal [facility] Comment on above: Result Comment: ADA RECOMMENDED LIMIT 4.0 - 6.0 ADA THERAPEUTIC TARGET < 7.0 ACTION SUGGESTED > 7.0 Performed By: #### C BC #### [facility] [address] [address] [address] Belkis Ascencio Glucose [Mass/Vol] 100 mg/dL Normal [facility] Comment on above: Performed By: #### C BC #### [facility] [address] [place] [address] Dr. Belkis Ascencio HbA1c (Bld) [Mass fraction] 5.1 % Normal 4.5-6.2 [facility] Comment on above: Performed By: #### C BC #### [facility] [address] [address] [address] Belkis Ascencio BUNon 11-05-2022 Urea nitrogen [Mass/Vol] 13.0 mg/dL Normal 7.0-18.0 [facility] Comment on above: Performed By: #### C BC #### [facility] [address] [place] [address] Dr. Belkis Ascencio CHEM 7 PANEL, MANUAL ENTERon 11-05-2022 Blood Urea Nitrogen (BUN), MANUAL ENTER 13 [facility] BUN/CREA RATIO, MANUAL ENTER 13 [facility] CALCIUM (CA), MANUAL ENTER [facility] Carbon Diox(CO2), MANUAL ENTER 30.8 [facility] Chloride (CL), MANUAL ENTER 101 mmol/L [facility] CREATININE, SERUM, MANUAL ENTER 0.74 mg/dL [facility] Comment on above: eGFR>60 GLUCOSE, MANUAL ENTER [facility] MAGNESIUM (MG), MANUAL ENTER [facility] Phosphate (PO4), Manual Enter [facility] POTASSIUM (K+), MANUAL ENTER 3.5 [facility] SODIUM (NA), MANUAL ENTER 135 [facility] CREATININEon 11-05-2022 Creatinine [Mass/Vol] 0.74 mg/dL Normal 0.55-1.02 [facility] Comment on above: Performed By: #### C BC #### [facility] [address] [place] [address] Dr. Belkis Ascencio EGFR-AF BOTSWANAN >60 Normal >=60 [facility] Comment on above: Performed By: #### C BC #### [facility] [address] [place] [address] Dr. Belkis Ascencio EGFR-NON AF BOTSWANAN >60 Normal >=60 [facility] Comment on above: Performed By: #### C BC #### [facility] [address] [place] [address] Dr. Belkis Ascencio ELECTROLYTESon 11-05-2022 Anion gap [Moles/Vol] 6.7 mmol/L Normal [facility] Comment on above: Performed By: #### C BC #### [facility] [address] [place] [address] Dr. Belkis Ascencio Chloride [Moles/Vol] 101 mmol/L Normal 98-107 [facility] Comment on above: Performed By: #### C BC #### [facility] [address] [place] [address] Dr. Belkis Ascencio CO2 [Moles/Vol] 30.8 mmol/L Normal 21.0-32.0 [facility] Comment on above: Performed By: #### C BC #### [facility] [address] [place] [address] Dr. Belkis Ascencio Potassium [Moles/Vol] 3.5 mmol/L Normal 3.5-5.1 [facility] Comment on above: Performed By: #### C BC #### [facility] [address] [place] [address] Dr. Belkis Ascencio Sodium [Moles/Vol] 135 mmol/L Critically low 136-145 [facility] Comment on above: Performed By: #### C BC #### [facility] [address] [address] [address] Belkis Ascencio MG MAMM SCREEN 3D LORNA CADon 09-15-2022 MG MAMM SCREEN 3D LORNA CAD Patient: MARIANNA RAMIREZ Exam Date: 09/15/2022 : 1975 Gender:F Ordering : DR. ILANA KUMARI D.O. Admission #: [id number] Family : Order #: [id number] CLICK HERE TO VIEW EXAM RADIOLOGY REPORT [...] lung cancer at age 40. LOCATION: [facility] BREAST COMPOSITION: Heterogeneously dense,which may obscure [...] M.D. on 09/15/2022 at 14:50 Normal [facility] BUNon 08-14-2022 Urea nitrogen [Mass/Vol] 15.0 mg/dL Normal 7.0-18.0 [facility] Comment on above: Performed By: #### C BRITTANI, TSH, ELEC, BUN #### [facility] [address] [place], [place] [address] Dr. Belkis Ascencio CBC AUTO DIFFon 12-09-2022 BASO # 0.0 103/ul Normal 0.0-0.1 [facility] Comment on above: Performed By: #### C BC #### [facility] [address] [place] [address] Dr. Belkis Ascencio Basophils/100 WBC (Bld) 0.3 % Normal 0.2-2.0 [facility] Comment on above: Performed By: #### C BC #### [facility] [address] [place] [address] Dr. Belkis Ascencio EO # 0.1 103/ul Normal 0.0-0.7 [facility] Comment on above: Performed By: #### C BC #### [facility] [address] [place] [address] Dr. Belkis Ascencio Eosinophils/100 WBC (Bld) 0.7 % Critically low 0.9-7.0 [facility] Comment on above: Performed By: #### C BC #### [facility] [address] [place] [address] Dr. Belkis Ascencio Erythrocyte distribution width (RBC) [Ratio] 11.4 % Normal 11.0-15.0 [facility] Comment on above: Performed By: #### C BC #### [facility] [address] [place] [address] Dr. Belkis Ascencio Hematocrit (Bld) [Volume fraction] 38.4 % Normal 36.0-48.0 [facility] Comment on above: Performed By: #### C BC #### [facility] [address] [place] [address] Dr. Belkis Ascencio Hemoglobin (Bld) [Mass/Vol] 13.3 g/dL Normal 12.0-16.0 [facility] Comment on above: Performed By: #### C BC #### [facility] [address] [place] [address] Dr. Belkis Ascencio IG # 0.02 10e3/ul Normal 0.00-0.03 [facility] Comment on above: Performed By: #### C BC #### [facility] [address] [place] [address] Dr. Belkis Ascencio IG % 0.2 % Normal 0.0-0.5 [facility] Comment on above: Performed By: #### C BC #### [facility] [address] [place] [address] Dr. Belkis Ascencio LYMPH # 2.1 103/ul Normal 1.2-3.8 [facility] Comment on above: Performed By: #### C BC #### [facility] [address] [place] [address] Dr. Belkis Ascencio Lymphocytes/100 WBC (Bld) 23.1 % Normal 20.5-60.0 [facility] Comment on above: Performed By: #### C BC #### [facility] [address] [place] [address] Dr. Belkis Ascencio MANUAL DIFF REQ NO Normal [facility] Comment on above: Performed By: #### C BC #### [facility] [address] [place] [address] Dr. Belkis Ascencio MCH (RBC) [Entitic mass] 30.9 pg Normal 26.7-34.0 [facility] Comment on above: Performed By: #### C BC #### [facility] [address] [place] [address] Dr. Belkis Ascencio MCHC (RBC) [Mass/Vol] 34.6 g/dL Normal 29.9-35.2 [facility] Comment on above: Performed By: #### C BC #### [facility] [address] [place] [address] Dr. Belkis Ascencio MCV (RBC) [Entitic vol] 89.1 fL Normal 81.0-99.0 [facility] Comment on above: Performed By: #### C BC #### [facility] [address] [place] [address] Dr. Belkis Ascencio MONO # 0.6 103/ul Normal 0.3-0.8 [facility] Comment on above: Performed By: #### C BC #### [facility] [address] [place] [address] Dr. Belkis Ascencio Monocytes/100 WBC (Bld) 6.8 % Normal 1.7-12.0 [facility] Comment on above: Performed By: #### C BC #### [facility] [address] [address] [address] Belkis Ascencio NEUT # 6.1 103/ul Normal 1.4-6.5 [facility] Comment on above: Performed By: #### C BC #### [facility] [address] [address] [address] Belkis Ascencio Neutrophils/100 WBC (Bld) 68.9 % Normal 43.0-75.0 [facility] Comment on above: Performed By: #### C BC #### [facility] [address] [address] [address] Belkis Ascencio Platelet mean volume (Bld) [Entitic vol] 9.4 fL Critically low 9.5-13.5 [facility] Comment on above: Performed By: #### C BC #### [facility] [address] [place] [address] Dr. Belkis Ascencio PLT 305 103/ul Normal 150-450 [facility] Comment on above: Performed By: #### C BC #### [facility] [address] [place] [address] Dr. Belkis Ascencio RBC 4.31 106/ul Normal 4.20-5.40 [facility] Comment on above: Performed By: #### C BC #### [facility] [address] [place] [address] Dr. Belkis Ascencio WBC 8.9 103/ul Normal 4.0-11.0 [facility] Comment on above: Performed By: #### C BC #### [facility] [address] [place] [address] Dr. Belkis Ascencio CREATININEon 08-14-2022 Creatinine [Mass/Vol] 0.73 mg/dL Normal 0.55-1.02 [facility] Comment on above: Performed By: #### C BRITTANI, TSH, ELEC, BUN #### [facility] [address] [address] [address] Belkis Ascencio EGFR-AF BOTSWANAN >60 Normal >=60 [facility] Comment on above: Performed By: #### C BRITTANI, TSH, ELEC, BUN #### [facility] [address] [address] [address] Belkis Ascencio EGFR-NON AF BOTSWANAN >60 Normal >=60 [facility] Comment on above: Performed By: #### C BRITTANI, TSH, ELEC, BUN #### [facility] [address] [address] [address] Belkis Ascencio ELECTROLYTESon 08-14-2022 Anion gap [Moles/Vol] 10.4 mmol/L Normal [facility] Comment on above: Performed By: #### C BRITTANI, TSH, ELEC, BUN #### [facility] [address] [address] [address] Belkis Ascencio Chloride [Moles/Vol] 100 mmol/L Normal 98-107 [facility] Comment on above: Performed By: #### C BRITTANI, TSH, ELEC, BUN #### [facility] [address] [address] [address] Belkis Ascencio CO2 [Moles/Vol] 29.8 mmol/L Normal 21.0-32.0 [facility] Comment on above: Performed By: #### C BRITTANI, TSH, ELEC, BUN #### [facility] [address] [address] [address] Belkis Ascencio Potassium [Moles/Vol] 4.2 mmol/L Normal 3.5-5.1 [facility] Comment on above: Performed By: #### C BRITTANI, TSH, ELEC, BUN #### [facility] [address] [address] [address] Belkis Ascencio Sodium [Moles/Vol] 136 mmol/L Normal 136-145 [facility] Comment on above: Performed By: #### C BRITTANI, TSH, ELEC, BUN #### [facility] [address] [place] [address] Dr. Belkis Ascencio GLYCOHEMOGLOBIN A1Con 2021 ADA RECOMMENDATION SEE BELOW Normal [facility] Comment on above: Result Comment: ADA RECOMMENDED LIMIT 4.0 - 6.0 ADA THERAPEUTIC TARGET < 7.0 ACTION SUGGESTED > 7.0 Performed By: #### A 1C #### [facility] [address] [place], [place] [address] Dr. Belkis Ascencio Glucose [Mass/Vol] 105 mg/dL Normal [facility] Comment on above: Performed By: #### A 1C #### [facility] [address] [place], [place] [address] Dr. Belkis Ascencio HbA1c (Bld) [Mass fraction] 5.3 % Normal 4.5-6.2 [facility] Comment on above: Performed By: #### A 1C #### [facility] [address] [place], [place] [address] Dr. Belkis Ascencio TSHon 08-14-2022 TSH 1.011 uIU/mL Normal 0.358-3.740 [facility] Comment on above: Performed By: #### C BRITTANI, TSH, ELEC, BUN #### [facility] [address] [address] [address] Belkis Ascencio Urinalysis - DIPSTICKon 03-06 Appearance (U) clougy [employer] Other Bilirubin Ql (U) Negative [employer] Other Color (U) yellow [employer] Other Glucose Ql (U) Negative [employer] Other Hemoglobin Ql (U) moderate [employer] Other Ketones Ql (U) Negative [employer] Other Leukocyte esterase Test strip Ql (U) Negative [employer] Other Nitrite Ql (U) Negative [employer] Other pH (U) 6.0 [pH] [employer] Other Protein Ql (U) Negative [employer] Other Specific gravity (U) [Rel density] 1.025 [employer] Other Urobilinogen (U) [Mass/Vol] wnl [facility] Other Urinalysis - DIPSTICK [facility] Other Urine Cultureon 03-22-2022 Bacteria identified Cx Nom (U) [facility] Other Cardiac echo study Procedure Ordered By: Vickey Mahan on 03-19-2022 Ao peak wilner 1.48 m/s [facility] Work Phone: [facility]ending [facility]: AV LVOT peak gradient 5 mmHg [facility] Work Phone: AV peak gradient 9 mmHG [facility] Work Phone: AV Velocity Ratio 0.76 [facility] Work Phone: ROYAL (continuity Vmax) 2.14 cm2 [facility] Work Phone: ROYAL index (continuity Vmax) 1.28 m/s [facility] Work Phone: Avg e' pk wilner 0.12 m/s [facility] Work Phone: Avg E/e' ratio 6.38 [facility] Work Phone: Body surface area Derived from formula 1.67 m2 [facility] Work Phone: DI (Vmax) 0.76 [facility] Work Phone: E wave decelartion time 246.00 msec [facility] Work Phone: e' lateral pk wilner 0.1360 m/s [facility] Work Phone: e' lateral pk wilner 0.14 m/s [facility] Work Phone: e' septal pk wilner 0.1110 m/s [facility]: e' septal pk wilner 0.11 m/s [facility] Phone: E[facility]A [facility] 1.39 [facility]: E/e' lateral [facility] 5.74 [facility]: E/e' septal [facility] 7.03 [facility] Work Phone: FS 30 % 28 - 44 % [facility] Work Phone: IVC ostium 1.11 cm [facility] Work Phone: IVS 0.69 cm [facility] Work Phone: LA AREA 2CH 14.80 cm2 [facility] Work Phone: LA ESV SP 2CH (MOD) 37 mL [facility] Work Phone: LV mass 88.15 g [facility] Work Phone: LV Mass Index 52.8 g/m2 [facility] Work Phone: LV RWT 0.24 [facility] Work Phone: LVIDD 4.66 cm [facility] Work Phone: LVIDS 3.28 cm [facility] Work Phone: LVOT area 2.83 cm2 [facility] Work Phone: LVOT diameter 1.90 cm [facility] Work Phone: LVOT peak wilner 1.12 m/s [facility] Work Phone: LVOT peak VTI 20.60 cm [facility] Work Phone: LVOT stroke volume 58 cm3 [facility] Work Phone: LVOT stroke volume index 34.96 ml/m2 [facility] Work Phone: MV pk A wilner 0.56 m/s [facility] Work Phone: MV pk E wilner 0.78 m/s [facility] Work Phone: MV stenosis pressure 1/2 time 72.00 ms [facility] Work Phone: MV valve area p 1/2 method 3.06 cm2 [facility] Work Phone: PW 0.56 cm [facility] Work Phone: Right ventricle end diastolic volume index 50.90 mL/m2 [facility] Work Phone: Right ventricle end systolic volume index 20.36 [facility] Work Phone: RV basal diam 2.97 cm [facility] Work Phone: RV EDV 85 mL [facility] Work Phone: RV EF 60 % [facility] Work Phone: RV ESV 34 mL [facility] Work Phone: RV long diam 7.97 cm [facility] Work Phone: RV mid diam 2.09 cm [facility] Work Phone: RV S' 13.80 cm/s [facility] Work Phone: Sinus 2.36 cm [facility] Work Phone: STJ 2.46 cm [facility] Work Phone: Stroke Volume 58 cm/mL [facility] Work Phone: [facility]roke [facility]: TAPSE 2.46 cm [facility] Work Phone: [facility] Work Phone: Cardiac echo study Procedure [...] independent workstation was performed. Imaging system used: [employer]. [facility] Radiology Study observation (narrative) [facility] Urinalysis - AUTOMATEDon Appearance (U) clear [employer] Other Bilirubin Ql (U) Negative [employer] Other Color (U) yellow [employer] Other Glucose Ql (U) Negative [employer] Other Hemoglobin Ql (U) small [employer] Other Ketones Ql (U) Negative [employer] Other Leukocyte esterase Test strip Ql (U) small [employer] Other Nitrite Ql (U) Negative [employer] Other pH (U) 7.0 [pH] [employer] Other Protein Ql (U) Negative [employer] Other Specific gravity (U) [Rel density] 1.010 [employer] Other Urobilinogen (U) [Mass/Vol] 0.2 mg/dL [employer] Other Urinalysis - AUTOMATED No rt [employer] Other Urine Cultureon 03-12-2022 Urine Culture >100,000 [employer] Other Urine Culture <16 Susceptible [employer] Other Urine Culture >16 Resistant [employer] Other Urine Culture <4 Susceptible [employer] Other Urine Culture 4 Susceptible [employer] Other Urine Culture <2 Susceptible [employer] Other Urine Culture <1 Susceptible [employer] Other Urine Culture <0.5 Susceptible [employer] Other Urine Culture <32 Susceptible [employer] Other Urine Culture >8 Resistant [employer] Other Urine Culture <2/38 Susceptible [employer] Other CBC AUTO DIFFon 02-20-2022 BASO # 0.0 103/ul Normal 0.0-0.1 [facility] Comment on above: Performed By: #### C BC #### [facility] [address] [place] [address] Dr. Belkis Ascencio Basophils/100 WBC (Bld) 0.4 % Normal 0.2-2.0 [facility] Comment on above: Performed By: #### C BC #### [facility] [address] [place] [address] Dr. Belkis Ascencio EO # 0.1 103/ul Normal 0.0-0.7 [facility] Comment on above: Performed By: #### C BC #### [facility] [address] [place] [address] Dr. Belkis Ascencio Eosinophils/100 WBC (Bld) 1.0 % Normal 0.9-7.0 [facility] Comment on above: Performed By: #### C BC #### [facility] [address] [place] [address] Dr. Belkis Ascencio Erythrocyte distribution width (RBC) [Ratio] 11.5 % Normal 11.0-15.0 [facility] Comment on above: Performed By: #### C BC #### [facility] [address] [place] [address] Dr. Belkis Ascencio Hematocrit (Bld) [Volume fraction] 38.8 % Normal 36.0-48.0 [facility] Comment on above: Performed By: #### C BC #### [facility] [address] [place] [address] Dr. Belkis Ascencio Hemoglobin (Bld) [Mass/Vol] 13.2 g/dL Normal 12.0-16.0 [facility] Comment on above: Performed By: #### C BC #### [facility] [address] [place] [address] Dr. Belkis Ascencio IG # 0.01 10e3/ul Normal 0.00-0.03 [facility] Comment on above: Performed By: #### C BC #### [facility] [address] [place] [address] Dr. Belkis Ascencio IG % 0.1 % Normal 0.0-0.5 [facility] Comment on above: Performed By: #### C BC #### [facility] [address] [place] [address] Dr. Belkis Ascencio LYMPH # 1.6 103/ul Normal 1.2-3.8 [facility] Comment on above: Performed By: #### C BC #### [facility] [address] [place] [address] Dr. Belkis Ascencio Lymphocytes/100 WBC (Bld) 22.1 % Normal 20.5-60.0 [facility] Comment on above: Performed By: #### C BC #### [facility] [address] [place] [address] Dr. Belkis Ascencio MANUAL DIFF REQ NO Normal [facility] Comment on above: Performed By: #### C BC #### [facility] [address] [place] [address] Dr. Belkis Ascencio MCH (RBC) [Entitic mass] 31.3 pg Normal 26.7-34.0 [facility] Comment on above: Performed By: #### C BC #### [facility] [address] [place] [address] Dr. Belkis Ascencio MCHC (RBC) [Mass/Vol] 34.0 g/dL Normal 29.9-35.2 [facility] Comment on above: Performed By: #### C BC #### [facility] [address] [place] [address] Dr. Belkis Ascencio MCV (RBC) [Entitic vol] 91.9 fL Normal 81.0-99.0 [facility] Comment on above: Performed By: #### C BC #### [facility] [address] [place] [address] Dr. Belkis Ascencio MONO # 0.6 103/ul Normal 0.3-0.8 [facility] Comment on above: Performed By: #### C BC #### [facility] [address] [place] [address] Dr. Belkis Ascencio Monocytes/100 WBC (Bld) 8.7 % Normal 1.7-12.0 [facility] Comment on above: Performed By: #### C BC #### [facility] [address] [place] [address] Dr. Belkis Ascencio NEUT # 4.8 103/ul Normal 1.4-6.5 [facility] Comment on above: Performed By: #### C BC #### [facility] [address] [place] [address] Dr. Belkis Ascencio Neutrophils/100 WBC (Bld) 67.7 % Normal 43.0-75.0 [facility] Comment on above: Performed By: #### C BC #### [facility] [address] [place] [address] Dr. Belkis Ascencio Platelet mean volume (Bld) [Entitic vol] 9.4 fL Critically low 9.5-13.5 [facility] Comment on above: Performed By: #### C BC #### [facility] [address] [place] [address] Dr. Belkis Ascencio PLT 270 103/ul Normal 150-450 [facility] Comment on above: Performed By: #### C BC #### [facility] [address] [place] [address] Dr. Belkis Ascencio RBC 4.22 106/ul Normal 4.20-5.40 [facility] Comment on above: Performed By: #### C BC #### [facility] [address] [place] [address] Dr. Belkis Ascencio WBC 7.1 103/ul Normal 4.0-11.0 [facility] Comment on above: Performed By: #### C BC #### [facility] [address] [place] [address] Dr. Belkis Ascencio PROF CHEM 8 (BAS METB)on Anion gap [Moles/Vol] 9.0 mmol/L Normal [facility] Comment on above: Performed By: #### C BC #### [facility] [address] [place] [address] Dr. Belkis Ascencio Calcium [Mass/Vol] 8.8 mg/dL Normal 8.5-10.1 [facility] Comment on above: Performed By: #### C BC #### [facility] [address] [place] [address] Dr. Belkis Ascencio Chloride [Moles/Vol] 102 mmol/L Normal 98-107 [facility] Comment on above: Performed By: #### C BC #### [facility] [address] [address] [address] Belkis Ascencio CO2 [Moles/Vol] 29.2 mmol/L Normal 21.0-32.0 [facility] Comment on above: Performed By: #### C BC #### [facility] [address] [address] [address] Belkis Ascencio Creatinine [Mass/Vol] 0.76 mg/dL Normal 0.55-1.02 [facility] Comment on above: Performed By: #### C BC #### [facility] [address] [place] [address] Dr. Belkis Ascencio EGFR-AF BOTSWANAN >=60 Normal >=60 [facility] Comment on above: Performed By: #### C BC #### [facility] [address] [place] [address] Dr. Belkis Ascencio EGFR-NON AF BOTSWANAN >=60 Normal >=60 [facility] Comment on above: Performed By: #### C BC #### [facility] [address] [address] [address] Belkis Ascencio Glucose [Mass/Vol] 109 mg/dL Critically high 74-106 [facility] Comment on above: Performed By: #### C BC #### [facility] [address] [place] [address] Dr. Belkis Ascencio Potassium [Moles/Vol] 4.4 mmol/L Normal 3.5-5.1 [facility] Comment on above: Performed By: #### C BC #### [facility] [address] [address] [address] Belkis Ascencio Sodium [Moles/Vol] 136 mmol/L Normal 136-145 [facility] Comment on above: Performed By: #### C BC #### [facility] [address] [address] [address] Belkis Ascencio Urea nitrogen [Mass/Vol] 12.0 mg/dL Normal 7.0-18.0 [facility] Comment on above: Performed By: #### C BC #### [facility] [address] [place], [place] [address] Dr. Belkis Ascencio Urea nitrogen/Creatinine [Mass ratio] 15.8 mg/mg Normal [facility] Comment on above: Performed By: #### C BC #### [facility] [address] [place], [place] [address] Dr. Belkis Ascencio Vital Signs Date Time Vital Sign Value Performing Clinician Faci lity 05-11-2025 09:27-0400 Body mass index (BMI) [Ratio] 27.8 kg/m2 Ilana Rinkes DO Work Phone: [facility] 05-11-2025 09:27-0400 Body weight 68.95 kg Ilana Rinkes DO Work Phone: [facility] 05-11-2025 09:27-0400 Diastolic blood pressure 72 mm[Hg] Ilana Rinkes DO Work Phone: [facility] 05-11-2025 09:27-0400 Systolic blood pressure 112 mm[Hg] Ilana Rinkes DO Work Phone: [facility] 03-29-2025 15:23-0400 Body height 157.5 cm Ever Biedenbach DO Work Phone: [facility] 03-29-2025 15:23-0400 Body mass index (BMI) [Ratio] 28.35 kg/m2 Ever Biedenbach DO Work Phone: [facility] 03-29-2025 15:23-0400 Body weight 70.31 kg Ever Biedenbach DO Work Phone: [facility] 12-29-2024 08:57-0400 Body height 157.5 cm Ever Biedenbach DO Work Phone: [facility] 12-29-2024 08:57-0400 Body mass index (BMI) [Ratio] 28.35 kg/m2 Ever Biedenbach DO Work Phone: [facility] 12-29-2024 08:57-0400 Body weight 70.31 kg Ever Biedenbach DO Work Phone: [facility] 12-22-2024 11:37-0400 Body height 157.48 cm [facility] 12-22-2024 11:37-0400 Body mass index (BMI) [Ratio] 28.3 kg/m2 [facility] 12-22-2024 11:37-0400 Body temperature 97.3 [degF] [facility] 12-22-2024 11:37-0400 Body weight 70.3 kg [facility] 12-22-2024 11:37-0400 Diastolic blood pressure 60 mm[Hg] [facility] 12-22-2024 11:37-0400 Heart rate 87 /min [facility] 12-22-2024 11:37-0400 SaO2% (BldA) [Mass fraction] 97 % [facility] 12-22-2024 11:37-0400 Systolic blood pressure 102 mm[Hg] [facility] 12-21-2024 13:44-0400 Diastolic blood pressure 66 mm[Hg] Trip Sosa MD Work Phone: [facility] 12-21-2024 13:44-0400 Heart rate 89 /min Trip Sosa MD Work Phone: [facility] 12-21-2024 13:44-0400 Systolic blood pressure 103 mm[Hg] Trip Sosa MD Work Phone: [facility] 12-21-2024 13:39-0400 Body height 157.5 cm Trip Sosa MD Work Phone: [facility] 12-21-2024 13:39-0400 Body mass index (BMI) [Ratio] 28.53 kg/m2 Trip Sosa MD Work Phone: [facility] 12-21-2024 13:39-0400 Body weight 70.76 kg Trip Sosa MD Work Phone: [facility] 12-21-2024 13:39-0400 Respiratory rate 18 /min Trip Sosa MD Work Phone: [facility] 12-21-2024 13:39-0400 SaO2% (BldA) [Mass fraction] 98 % Trip Sosa MD Work Phone: [facility] 11-29-2024 11:25-0400 Body weight 72.08 kg Ivon dyson MD Work Phone: [facility] 11-29-2024 11:25-0400 Diastolic blood pressure 74 mm[Hg] Ivon Mcmahon MD Work Phone: [facility] 11-29-2024 11:25-0400 Systolic blood pressure 106 mm[Hg] Ivon Mcmahon MD Work Phone: [facility] 11-22-2024 08:57-0400 Body height 157.48 cm [facility] 11-22-2024 08:57-0400 Body mass index (BMI) [Ratio] 29 kg/m2 [facility] 11-22-2024 08:57-0400 Body temperature 98.2 [degF] [facility] 11-22-2024 08:57-0400 Body weight 71.89 kg [facility] 11-22-2024 08:57-0400 Diastolic blood pressure 62 mm[Hg] [facility] 11-22-2024 08:57-0400 Heart rate 82 /min [facility] 11-22-2024 08:57-0400 Systolic blood pressure 95 mm[Hg] [facility] 11-06-2024 10:16-0500 Body height 157.5 cm Ever Woodward DO Work Phone: [facility] 11-06-2024 10:16-0500 Body mass index (BMI) [Ratio] 28.35 kg/m2 Ever Woodward DO Work Phone: [facility] 11-06-2024 10:16-0500 Body weight 70.31 kg Ever Woodward DO Work Phone: [facility] 10-31-2024 10:58-0500 Body mass index (BMI) [Ratio] 28.53 kg/m2 Ilana Kumari DO Work Phone: [facility] 10-31-2024 10:58-0500 Body weight 70.76 kg Ilana Kumari DO Work Phone: [facility] 10-31-2024 10:58-0500 Diastolic blood pressure 80 mm[Hg] Ilana Kumari DO Work Phone: [facility] 10-31-2024 10:58-0500 Systolic blood pressure 122 mm[Hg] Ilana Kumari DO Work Phone: [facility] 10-31-2024 09:23-0500 Body height 157.48 cm [facility] 10-31-2024 09:23-0500 Body mass index (BMI) [Ratio] 29 kg/m2 [facility] 10-31-2024 09:23-0500 Body temperature 98.3 [degF] [facility] 10-31-2024 09:23-0500 Body weight 72.12 kg [facility] 10-31-2024 09:23-0500 Diastolic blood pressure 69 mm[Hg] [facility] 10-31-2024 09:23-0500 Heart rate 81 /min [facility] 10-31-2024 09:23-0500 Systolic blood pressure 101 mm[Hg] [facility] 06-22-2024 13:22-0400 Diastolic blood pressure 51 mm[Hg] Trip Sosa MD Work Phone: [facility] 06-22-2024 13:22-0400 Heart rate 77 /min Trip Sosa MD Work Phone: [facility] 06-22-2024 13:22-0400 Systolic blood pressure 99 mm[Hg] Trip Sosa MD Work Phone: [facility] 06-22-2024 13:210400 Body height 157.5 cm Trip Sosa MD Work Phone: [facility] 06-22-2024 13:21-0400 Body mass index (BMI) [Ratio] 27.78 kg/m2 Trip Sosa MD Work Phone: [facility] 06-22-2024 13:0400 Body weight 68.9 kg Trip Sosa MD Work Phone: [facility] 06-22-2024 13:21-0400 Respiratory rate 18 /min Trip Sosa MD Work Phone: [facility] 06-22-2024 13:21-0400 SaO2% (BldA) [Mass fraction] 97 % Trip Sosa MD Work Phone: [facility] 06-22-2024 12:40-0400 Diastolic blood pressure 64 mm[Hg] Kristine Thornton TERMITE EXTERMINATOR-JAVA TECHNICAL ARCHITECT Work Phone: [facility] 06-22-2024 12:40-0400 Heart rate 78 /min Kristine Thornton TERMITE EXTERMINATOR-CN P Work Phone: [facility] 06-22-2024 12:40-0400 Systolic blood pressure 129 mm[Hg] Kristine Maldonadojohan TERMITE EXTERMINATOR-JAVA TECHNICAL ARCHITECT Work Phone: [facility] 06-22-2024 11:25-0400 Body height 157.5 cm Kristine Thornton TERMITE EXTERMINATOR-CN P Work Phone: [facility] 06-22-2024 11:25-0400 Body mass index (BMI) [Ratio] 26.7 kg/m2 Kristine Maldonadojohan TERMITE EXTERMINATOR-JAVA TECHNICAL ARCHITECT Work Phone: [facility] 06-22-2024 11:25-0400 Body weight 66.22 kg Kristine Maldonadojohan TERMITE EXTERMINATOR-CN P Work Phone: [facility] 06-08-2024 14:56-0400 Body height 157.5 cm Ever Biedenlilian DO Work Phone: [facility] 06-08-2024 14:56-0400 Body mass index (BMI) [Ratio] 28.17 kg/m2 Ever Biedenbach DO Work Phone: [facility] 06-08-2024 14:56-0400 Body weight 69.85 kg Ever Biedenlilian DO Work Phone: [facility] 06-01-2024 10:58-0400 Body height 157.5 cm Ever Biedenlilian DO Work Phone: [facility] 06-01-2024 10:58-0400 Body mass index (BMI) [Ratio] 28.17 kg/m2 Ever Biedenlilian DO Work Phone: [facility] 06-01-2024 10:58-0400 Body weight 69.85 kg Ever Biedenlilian DO Work Phone: [facility] 05-24-2024 14:30-0400 Diastolic blood pressure 77 mm[Hg] MD Cj Lazo Work Phone: [facility] 05-24-2024 14:30-0400 Heart rate 98 /min MD Cj Lazo Work Phone: [facility] 05-24-2024 14:30-0400 Respiratory rate 16 /min MD Cj Lazo Work Phone: [facility] 05-24-2024 14:30-0400 SaO2% (BldA) [Mass fraction] 97 % MD Cj Lazo Work Phone: [facility] 05-24-2024 14:30-0400 Systolic blood pressure 124 mm[Hg] MD Cj Lazo Work Phone: [facility] 05-24-2024 12:45-0400 Inhaled oxygen flow rate 2 L/min MD Cj Lazo Work Phone: [facility] 05-24-2024 11:53-0400 Body temperature 98.2 [degF] MD Cj Lazo Work Phone: [facility] 05-24-2024 08:34-0400 Body height 158.12 cm MD Cj Lazo Work Phone: [facility] 05-24-2024 08:34-0400 Body weight 68 kg MD Cj Lazo Work Phone: [facility] 05-05-2024 09:04-0400 Body height 157.5 cm Ever Woodward DO Work Phone: [facility] 05-05-2024 09:04-0400 Body mass index (BMI) [Ratio] 28.17 kg/m2 Ever Woodward DO Work Phone: [facility] 05-05-2024 09:04-0400 Body weight 69.85 kg Ever Woodward DO Work Phone: [facility] 04-13-2024 09:23-0400 Body height 157.48 cm [facility] 04-13-2024 09:23-0400 Body mass index (BMI) [Ratio] 27.2 kg/m2 [facility] 04-13-2024 09:23-0400 Body weight 67.58 kg [facility] 04-13-2024 09:23-0400 Diastolic blood pressure 72 mm[Hg] [facility] 04-13-2024 09:23-0400 Heart rate 89 /min [facility] 04-13-2024 09:23-0400 SaO2% (BldA) [Mass fraction] 99 % [facility] 04-13-2024 09:23-0400 Systolic blood pressure 110 mm[Hg] [facility] 12-20-2023 10:54-0400 Blood Pressure Location [place] [facility]min[place] 12-20-2023 10:54-0400 Diastolic blood pressure 60 mm[Hg] Viral Dealmini [facility] 12-20-2023 10:54-0400 Heart rate 68 /min [place] Sarmini [facility] 12-20-2023 10:54-0400 Respiratory rate 18 /min [place] Sarmini [facility] 12-20-2023 10:54-0400 Systolic blood pressure 110 mm[Hg] [place] Sarmini [facility] 12-10-2023 10:28-0400 Body height 157.48 cm [facility] 12-10-2023 10:28-0400 Body mass index (BMI) [Ratio] 27.6 kg/m2 [facility] 12-10-2023 10:28-0400 Body weight 68.49 kg [facility] 12-10-2023 10:28-0400 Diastolic blood pressure 78 mm[Hg] [facility] 12-10-2023 10:28-0400 Heart rate 80 /min [facility] 12-10-2023 10:28-0400 Systolic blood pressure 115 mm[Hg] [facility] 12-02-2023 14:23-0400 Diastolic blood pressure 67 mm[Hg] Trip Sosa MD Work Phone: [facility] 12-02-2023 14:23-0400 Heart rate 73 /min Trip Sosa MD Work Phone: [facility] 12-02-2023 14:23-0400 Systolic blood pressure 108 mm[Hg] Trip Sosa MD Work Phone: [facility] 12-02-2023 14:21-0400 Body height 157.5 cm Trip Sosa MD Work Phone: [facility] 12-02-2023 14:21-0400 Respiratory rate 18 /min Trip Sosa MD Work Phone: [facility] 12-02-2023 14:21-0400 SaO2% (BldA) [Mass fraction] 97 % Trip Sosa MD Work Phone: [facility] 05-04-2023 12:18-0400 Blood Pressure Location Jessica Lopez [facility] 05-04-2023 12:18-0400 Body temperature 97.52 [degF] Jessica Lopez [facility] 05-04-2023 12:18-0400 Diastolic blood pressure 75 mm[Hg] Jessica Lopez [facility] 05-04-2023 12:18-0400 Heart rate 79 /min Jessica Lopez [facility] 05-04-2023 12:18-0400 Systolic blood pressure 110 mm[Hg] Jessica Lopez [facility] 04-22-2023 15:37-0400 Diastolic blood pressure 68 mm[Hg] Trip Sosa MD Work Phone: [facility] 04-22-2023 15:37-0400 Heart rate 86 /min Trip Sosa MD Work Phone: [facility] 04-22-2023 15:37-0400 Systolic blood pressure 115 mm[Hg] Trip Sosa MD Work Phone: [facility] 04-22-2023 15:36-0400 Body height 157.5 cm Trip Sosa MD Work Phone: [facility] 04-22-2023 15:36-0400 Body mass index (BMI) [Ratio] 25.02 kg/m2 Trip Sosa MD Work Phone: [facility] 08-17-2023 15:36-0400 Body weight 62.05 kg Trip Sosa MD Work Phone: [facility] 04-22-2023 15:36-0400 Respiratory rate 20 /min Trip Sosa MD Work Phone: [facility] 04-22-2023 15:36-0400 SaO2% (BldA) [Mass fraction] 98 % Trip Sosa MD Work Phone: [facility] 01-13-2023 10:12-0400 Blood Pressure Location Jessica Izaguirremetz [facility] 01-13-2023 10:12-0400 Body temperature 97.16 [degF] Jessica Izaguirremetz [facility] 01-13-2023 10:12-0400 Diastolic blood pressure 74 mm[Hg] Jessica Izaguirremetz [facility] 01-13-2023 10:12-0400 Heart rate 71 /min Jessica Lopez [facility] 01-13-2023 10:12-0400 Systolic blood pressure 107 mm[Hg] Jessica Izaguirremetz [facility] 12-28-2022 11:05-0400 Blood Pressure Location Odve SALAM [facility] 12-28-2022 11:05-0400 Diastolic blood pressure 50 mm[Hg] Dove SALAM [facility] 12-28-2022 11:05-0400 Heart rate 75 /min Dove SALAM [facility] 12-28-2022 11:05-0400 Mean blood pressure 66 mm[Hg] Dove SALAM [facility] 12-28-2022 11:05-0400 Respiratory rate 18 /min Dove SALAM [facility] 12-28-2022 11:05-0400 SaO2% (BldA) [Mass fraction] 99 % Dove SALAM [facility] 12-28-2022 11:05-0400 Systolic blood pressure 98 mm[Hg] Dove SALAM [facility] 12-28-2022 10:55-0400 Blood Pressure Location Dove SALAM [facility] 12-28-2022 10:55-0400 Diastolic blood pressure 40 mm[Hg] Dove SALAM [facility] 12-28-2022 10:55-0400 Heart rate 82 /min Dove SALAM [facility] 12-28-2022 10:55-0400 Mean blood pressure 59 mm[Hg] Dove SALAM [facility] 12-28-2022 10:55-0400 Respiratory rate 15 /min Dove SALAM [facility] 12-28-2022 10:55-0400 SaO2% (BldA) [Mass fraction] 98 % Dove SALAM [facility] 12-28-2022 10:55-0400 Systolic blood pressure 98 mm[Hg] Dove SALAM [facility] 12-28-2022 10:50-0400 Blood Pressure Location Dove SALAM [facility] 12-28-2022 10:50-0400 Diastolic blood pressure 45 mm[Hg] Dove SALAM [facility] 12-28-2022 10:50-0400 Heart rate 70 /min Dove SALAM [facility] 12-28-2022 10:50-0400 Mean blood pressure 58 mm[Hg] Dove SALAM [facility] 12-28-2022 10:50-0400 Respiratory rate 20 /min Dove SALAM [facility] 12-28-2022 10:50-0400 SaO2% (BldA) [Mass fraction] 96 % Dove SALAM [facility] 12-28-2022 10:50-0400 Systolic blood pressure 84 mm[Hg] Dove SALAM [facility] 12-28-2022 10:41-0400 Body temperature 97.52 [degF] Dove SALAM [facility] 12-28-2022 10:39-0400 Respiratory rate 18 /min Dove SALAM [facility] 12-28-2022 10:35-0400 Respiratory rate 16 /min Dove SALAM [facility] 12-28-2022 10:28-0400 Respiratory rate 18 /min Dove SALAM [facility] 12-28-2022 09:55-0400 Body temperature 96.98 [degF] Dove SALAM [facility] 12-21-2022 12:45-0400 Blood Pressure Location Jessica John [facility] 12-21-2022 12:45-0400 Body temperature 96.98 [degF] Jessica Izaguirremetz [facility] 12-21-2022 12:45-0400 Diastolic blood pressure 77 mm[Hg] Jessica Lopez [facility] 12-21-2022 12:45-0400 Heart rate 66 /min Jessica Lopez [facility] 12-21-2022 12:45-0400 Systolic blood pressure 116 mm[Hg] Jessica Lopez [facility] 10-01-2022 14:42-0500 Diastolic blood pressure 66 mm[Hg] Trip Sosa MD Work Phone: [facility] 10-01-2022 14:42-0500 Heart rate 94 /min Trip Sosa MD Work Phone: [facility] 10-01-2022 14:42-0500 Systolic blood pressure 102 mm[Hg] Trip Sosa MD Work Phone: [facility] 10-01-2022 14:40-0500 Body height 157.5 cm Trip Sosa MD Work Phone: [facility] 10-01-2022 14:40-0500 Body mass index (BMI) [Ratio] 27.98 kg/m2 Trip Sosa MD Work Phone: [facility] 10-01-2022 14:40-0500 Body weight 69.4 kg Trip Sosa MD Work Phone: [facility] 10-01-2022 14:40-0500 Respiratory rate 16 /min Trip Sosa MD Work Phone: [facility] 10-01-2022 14:40-0500 SaO2% (BldA) [Mass fraction] 97 % Trip Sosa MD Work Phone: [facility] 03-22-2022 15:50-0400 Body height 157.48 cm Yas Garcia Other [employer] Other 07-17-2022 15:50-0400 Body mass index (BMI) [Ratio] 26.52 kg/m2 Yas Garcia Other [employer] Other 03-22-2022 15:50-0400 Body temperature 97.7 [degF] Yas Garcia Other [employer] Other 03-22-2022 15:50-0400 Body weight 65.77 kg Yas Garcia Other [employer] Other 03-22-2022 15:50-0400 SaO2% (BldA) [Mass fraction] 97 % Yas Garcia Other [employer] Other 03-19-2022 15:18-0400 Diastolic blood pressure 69 mm[Hg] Trip Sosa MD Work Phone: [facility] 03-19-2022 15:18-0400 Heart rate 76 /min Trip Sosa MD Work Phone: [facility] 03-19-2022 15:18-0400 Systolic blood pressure 120 mm[Hg] Trip Sosa MD Work Phone: [facility] 03-19-2022 15:17-0400 Body height 157.5 cm Trip Sosa MD Work Phone: [facility] 03-19-2022 15:17-0400 Body mass index (BMI) [Ratio] 27.25 kg/m2 Trip Sosa MD Work Phone: [facility] 03-19-2022 15:17-0400 Body weight 67.59 kg Trip Sosa MD Work Phone: [facility] 03-19-2022 15:17-0400 Respiratory rate 16 /min Trip Sosa MD Work Phone: [facility] 03-19-2022 15:17-0400 SaO2% (BldA) [Mass fraction] 97 % Trip Sosa MD Work Phone: [facility] 03-19-2022 14:02-0400 Body height 157.5 cm Kristine Thornton APRN-CN P Work Phone: [facility] 03-19-2022 14:02-0400 Body mass index (BMI) [Ratio] 26.65 kg/m2 Kristine Thornton TERMITE EXTERMINATOR-JAVA TECHNICAL ARCHITECT Work Phone: [facility] 03-19-2022 14:02-0400 Body weight 66.1 kg Kristine Thornton APRN-CN P Work Phone: [facility] 03-19-2022 14:02-0400 Diastolic blood pressure 67 mm[Hg] Kristine Thornton TERMITE EXTERMINATOR-JAVA TECHNICAL ARCHITECT Work Phone: [facility] 03-19-2022 14:02-0400 Systolic blood pressure 136 mm[Hg] Kristine Thornton TERMITE EXTERMINATOR-JAVA TECHNICAL ARCHITECT Work Phone: [facility] 03-12-2022 18:40-0400 Body height 157.48 cm Denise Catherine Other [employer] Other 03-12-2022 18:40-0400 Body mass index (BMI) [Ratio] 26.52 kg/m2 Denise Alexander Other [employer] Other 03-12-2022 18:40-0400 Body temperature 97.9 [degF] Denise Alexander Other [employer] Other 03-12-2022 18:40-0400 Body weight 65.77 kg Denise Alexander Other [employer] Other 03-12-2022 18:40-0400 Diastolic blood pressure 71 mm[Hg] Denise Alexander Other [employer] Other 03-12-2022 18:40-0400 Respiratory rate 16 /min Denise Alexander Other [employer] Other 03-12-2022 18:40-0400 SaO2% (BldA) [Mass fraction] 99 % Denise Alexander Other [employer] Other 03-12-2022 18:40-0400 Systolic blood pressure 124 mm[Hg] Denise Alexander Other [employer] Other Encounters Encounter Date Encounter Type Care Provider Facility Start: 05-23-2025 End: 05-23-2025 Chivo Mcmahon MD Work Phone: [facility] Adult Endocr[facility]ology, A Department of [facility] Comment on above: Thyroid cancer ([facility]- HCC); Postoperative hypothyroidism Start: 05-11-2025 End: 05-11-2025 Bamboo flowsheet Ilana E Rinkes DO Work Phone: [facility] Start: 05-11-2025 End: 05-11-2025 Bamboo flowsheet Ilana E Rinkes DO Work Phone: [facility] Start: 05-11-2025 End: 05-11-2025 Office outpatient visit 15 minutes Ilana E Rinkes DO Work Phone: [facility] Comment on above: Vaginal atrophy (Lynda kristine Dx); Vaginal irritation Start: 05-11-2025 End: 05-11-2025 ambulatory ILANA E RINKES Not Available Start: 03-29-2025 End: 03-29-2025 Office outpatient visit 25 minutes Ever Woodward DO Work Phone: [facility] Comment on above: Thyroid cancer (HCC) (Primary Dx); Postoperative hypothyroidism ; Neck mass Start: 03-29-2025 End: 03-29-2025 ambulatory EVER Yvonne CRISSY Not Available Start: 12-29-2024 End: 12-29-2024 Bamboo flowsheet Ever Woodward DO Work Phone: [facility] [place] Start: 12-29-2024 End: 12-29-2024 Bamboo flowsheet Ever Russell Chinnadeemkayla DO Work Phone: [facility] [place] Start: 12-29-2024 End: 12-29-2024 Office outpatient visit 25 minutes Ever Yvonne Crissy DO Work Phone: [facility] Comment on above: Globus sensation (Pr imary Dx); Thyroid cancer (CMS/HCC); Chronic sinusitis, unspecified location; Postoperative hypothyroidism (CMS/HCC) Start: 12-29-2024 End: 12-29-2024 ambulatory EVER WOODWARD Not Available Start: 12-22-2024 End: 12-22-2024 ambulatory [facility] Work Phone: Start: 12-22-2024 End: 12-22-2024 Patient encounter procedure [facility] Work Phone: Start: 12-21-2024 End: 12-21-2024 Office outpatient visit 15 minutes Trip Sosa MD Work Phone: [facility] Comment on above: Other cardiomyopathy ; Palpitations Start: 12-21-2024 ambulatory CJ LAZO Facility:[facility] Start: 12-21-2024 ambulatory VIKKI Damon ty:[facility] Start: 12-06-2024 Non-patient / Non-visit [facility] Work Phone: Start: 11-30-2024 End: 11-30-2024 Chivo Mcmahon MD Work Phone: [facility], A Department of [facility] Start: 11-29-2024 End: 11-29-2024 Office consultation new/estab patient 60 min Ivon Mcmahon MD Work Phone: [facility] Adult Endocrinology, A Department of [facility] Comment on above: Thyroid cancer (CMS- HCC) (Primary Dx); Postoperative hypothyroidism Start: 11-22-2024 End: 11-22-2024 ambulatory [facility] Work Phone: Start: 11-22-2024 End: 11-22-2024 Patient encounter procedure [facility] Work Phone: Start: 11-06-2024 End: 11-06-2024 Bamboo flowsheet Ever Woodward DO Work Phone: [facility] Start: 11-06-2024 End: 11-06-2024 Bamboo flowsheet Ever Woodward DO Work Phone: [facility] Start: 11-06-2024 End: 11-06-2024 Office outpatient visit 25 minutes Ever Woodward DO Work Phone: [facility] Comment on above: Chronic rhinitis (Pr imary Dx); Nasal pain; Thyroid carcinoma (CMS/HCC) Start: 11-06-2024 End: 11-06-2024 ambulatory EVER WOODWARD Not Available Start: 10-31-2024 End: 10-31-2024 Bamboo flowsheet Ilana Kumari DO Work Phone: [facility] Start: 10-31-2024 End: 10-31-2024 Bamboo flowsheet Ilana Kumari DO Work Phone: [facility] Start: 10-31-2024 End: 10-31-2024 Patient encounter status Ilana Kumari DO Work Phone: [facility] Start: 10-31-2024 End: 10-31-2024 Periodic preventive med est patient 40-64yrs Ilana Patelcb DO Work Phone: [facility] Comment on above: Encounter for gyneco logical examination without abnormal finding; Screening for malignant neoplasm of cervix; Encounter for screening mammogram for breast cancer Start: 10-31-2024 End: 10-31-2024 ambulatory ILANADEEPALI KUMARI Not Available Start: 10-31-2024 End: 10-31-2024 ambulatory [facility] Work Phone: Start: 10-31-2024 End: 10-31-2024 Patient encounter procedure [facility] Work Phone: Start: 08-25-2024 Non-patient / Non-visit [facility] Work Phone: Start: 06-27-2024 ambulatory [facility] Facility:[facility] Start: 06-22-2024 End: 06-22-2024 Office outpatient visit 15 minutes Trip Sosa MD Work Phone: [facility] Comment on above: Cardiac microvascula r disease (Primary Dx) Start: 06-22-2024 ambulatory [facility] Facility:[facility] Start: 06-22-2024 End: 06-22-2024 Subsequent hospital visit by physician Kristine HUANG Work Phone: [facility] Comment on above: Arrived Start: 06-08-2024 End: 06-08-2024 Postop follow up visit related to original px Ever Woodward DO Work Phone: [facility] Comment on above: Follicular thyroid c arcinoma (CMS/HCC) (Primary Dx) Start: 06-08-2024 End: 06-08-2024 ambulatory EVER WOODWARD Not Available Start: 06-08-2024 End: 06-08-2024 Bamboo flowsheet Ever Woodward DO Work Phone: [facility] Start: 06-08-2024 End: 06-08-2024 Bamboo flowsheet Ever Woodward DO Work Phone: [facility] Start: 06-01-2024 End: 06-01-2024 Bamboo flowsheet Ever Woodward DO Work Phone: [facility] [place] Start: 06-01-2024 End: 06-01-2024 Bamboo flowsheet Ever Woodward DO Work Phone: [facility] [place] Start: 06-01-2024 End: 06-01-2024 Postop follow up visit related to original px Ever Woodward DO Work Phone: [facility] [place] Comment on above: Thyroid nodule (CMS/ HCC) (Primary Dx); Follicular thyroid carcinoma (CMS/HCC) Start: 06-01-2024 End: 06-01-2024 ambulatory EVER WOODWARD Not Available Start: 05-24-2024 End: 05-24-2024 Patient encounter procedure Ever Woodward DO Work Phone: [facility] Comment on above: Thyroid nodule (CMS/ HCC) (Primary Dx) Start: 05-24-2024 End: 05-24-2024 Admission to same day surgery center MD Cj Lazo Work Phone: [facility] [place] Start: 05-24-2024 End: 05-24-2024 ambulatory MD Cj Lazo Work Phone: [facility] Work Phone: Start: 05-17-2024 End: 05-17-2024 External Result Encounter Ever Russell Chinnadeemrachelelilian DO Work Phone: [facility] Department Unsolicited Start: 05-17-2024 End: 05-17-2024 External Result Encounter Ever Woodward DO Work Phone: [facility] External Department Unsolicited Start: 05-17-2024 End: 05-17-2024 Patient encounter procedure MD Cj Lazo Work Phone: [facility] Work Phone: Start: 05-17-2024 End: 05-17-2024 ambulatory MD Cj Lazo Work Phone: [facility] Work Phone: Start: 05-05-2024 End: 05-05-2024 Bamboo flowsheet Ever Woodward DO Work Phone: [facility] Start: 05-05-2024 End: 05-05-2024 Bamboo flowsheet Ever Woodward DO Work Phone: [facility] [place] Start: 05-05-2024 End: 05-05-2024 Office outpatient new 60 minutes Ever Woodward DO Work Phone: [facility] Comment on above: Thyroid nodule (CMS/ HCC) (Primary Dx); Globus sensation Start: 04-19-2024 ambulatory [facility] Work Phone: Start: 04-19-2024 Non-patient / Non-visit [facility] Work Phone: Start: 04-13-2024 End: 04-13-2024 ambulatory [facility] Work Phone: Start: 04-13-2024 End: 04-13-2024 Patient encounter procedure [facility] Work Phone: Start: 12-20-2023 End: 12-21-2023 ambulatory Strat[place] Talal Sarmini Facility:[facility] Start: 12-20-2023 End: 12-20-2023 Patient encounter procedure [place] Talal Sarmini [facility] Start: 12-10-2023 End: 12-10-2023 ambulatory [facility] Work Phone: Start: 12-10-2023 End: 12-10-2023 Patient encounter procedure [facility] Work Phone: Start: 12-02-2023 End: 12-02-2023 Office outpatient visit 15 minutes Trip Sosa MD Work Phone: [facility] Comment on above: Cardiac microvascula r disease (Primary Dx) Start: 11-04-2023 End: 11-05-2023 ambulatory Jessica A John [facility] Start: 11-04-2023 End: 11-04-2023 Patient encounter procedure Jessica Lopez [facility] Start: 10-29-2023 Telephone encounter Alicia baumann MD Work Phone: [facility] Comment on above: Provider Question Start: 10-25-2023 Telephone encounter Alicia baumann MD Work Phone: [facility] Comment on above: Symptoms Vascular malformatio n (Primary Dx); Congenital vascular anomaly Start: 05-04-2023 End: 05-05-2023 ambulatory Jessica A John [facility] Start: 05-04-2023 End: 05-04-2023 Patient encounter procedure Jessica Lopez [facility] Start: 04-22-2023 End: 04-23-2023 Office outpatient visit 15 minutes Trip Sosa MD Work Phone: [employer] [facility] Comment on above: Other cardiomyopathy (Primary Dx); Palpitations Start: 04-12-2023 Telephone encounter Alicia baumann MD Work Phone: [facility] [place] Comment on above: Question and update Start: 01-13-2023 End: 01-14-2023 ambulatory Jessica A John [facility] Start: 01-13-2023 End: 01-13-2023 Patient encounter procedure Jessica Lopez [facility] Start: 12-28-2022 End: 12-29-2022 ambulatory Petty AMBROSE Facility:[facility] Start: 12-28-2022 End: 12-28-2022 Patient encounter procedure Petty AMBROSE [facility] Start: 12-22-2022 End: 12-23-[address] DOCTOR HENAO Facility:[facility] Start: 12-21-2022 End: 12-22-[address] DOCTOR HENAO Facility:[facility] Start: 12-21-2022 End: 12-22-2022 ambulatory Jessica Lopez Facility:[facility] Start: 12-21-2022 End: 12-21-2022 Patient encounter procedure Jessica Lopez [facility] Start: 12-19-2022 End: 12-20-[address] DOCTOR HENAO Facility:[facility] Start: 11-19-2022 End: 11-20-[address] DOCTOR HENAO Facility:[facility] Start: 11-14-2022 Orders Only Alicia Bolivar MD Work Phone: [facility] Comment on above: Developmental venous anomaly (Primary Dx) Start: 11-06-2022 ambulatory Kia Colin RN [facility] Start: 11-05-2022 End: 11-06-[address] DOCTOR HENAO Facility:[facility] Start: 10-01-2022 End: 10-01-2022 Office outpatient visit 15 minutes Trip Sosa MD Work Phone: [facility] Comment on above: Other cardiomyopathy (Primary Dx) Start: 09-15-2022 End: 09-16-[address] CJ LAZO Facility:[facility] Start: 08-14-2022 End: 08-15-[address] DOCTOR HENAO Facility:[facility] Start: 03-24-2022 End: 03-24-2022 ambulatory Yas Garcia Other [employer] Other Start: 03-24-2022 Telephone encounter Yas Garcia [facility] [address] Start: 03-22-2022 End: 03-22-2022 ambulatory Yas Garcia Other [employer] Other Start: 03-22-2022 Office outpatient vi sit 15 minutes Yas Garcia [facility] Start: 03-19-2022 End: 03-19-2022 Office outpatient visit 15 minutes Trip Sosa MD Work Phone: [facility] Comment on above: Cardiac syndrome X ( Primary Dx); Palpitations Start: 03-19-2022 End: 03-19-2022 Subsequent hospital visit by physician Kristine Thornton TERMITE EXTERMINATOR-JAVA TECHNICAL ARCHITECT Work Phone: [facility] Comment on above: Arrived Start: 03-12-2022 End: 03-12-2022 Departed [employer] Denise Alexander Work Phone: [facility] [place] Start: 03-12-2022 End: 03-12-2022 ambulatory Denise Alexander Other [employer] Other Start: 03-12-2022 Office outpatient ne w 20 minutes Denise Alexander [facility] [place] Start: 02-20-2022 End: 02-21-[address] [facility]RON [facility] Facility:[facility] Procedures Date Procedure Procedure Detail Performing Clinician Start: 12-22-2024 RSV (POC) Start: 06-22-2024 Cta hrt cornry art/bypass grfts contrst 3d post Kristine Thornton TERMITE EXTERMINATOR-JAVA TECHNICAL ARCHITECT Work Phone: Start: 05-24-2024 SARS-CoV-2, Influenza & [...] tthrc r-t 2d w/wom-mode compl spec&colr d Kristine Thornton TERMITE EXTERMINATOR-JAVA TECHNICAL ARCHITECT Work Phone: Start: 03-12-2022 Piperacillin/tazobactam Denise Breaul t Other Start: 09-18-2021 Lipid 1996 panel - Serum or Plasma Kristine Thornton TERMITE EXTERMINATOR-JAVA TECHNICAL ARCHITECT Work Phone: Start: 09-27-2020 Colonoscopy Ever Woodward DO Work Phone: Start: 09-27-2020 Colonoscopy Jessica Lopez Esophagogastroduoden oscopy gastric outlet reduction Jessica Lopez Plan of Treatment Date Care Activity Detail Author Start: 09-27-2030 Screening for malign ant neoplasm of colon [facility] Start: 10-07-2028 Screening for malign ant neoplasm of cervix [facility] Start: 12-20-2027 Lipid panel LIPID SCREENING [facility] Start: 09-18-2026 Fasting lipid profile LIPID SCREENIN G [facility] Start: 09-18-2026 Lipid panel LIPID SCREENING [facility] Start: 01-05-2026 DTaP,Tdap and Td Vac cines (2 - Td or Tdap) DTaP,Tdap and Td Vaccines (2 - Td or Tdap) [facility] Start: 01-05-2026 Tetanus vaccination TETANUS U [facility] Start: 01-05-2026 Urine microalbumin profile DTa P,Tdap,Td Vaccine (2 - Td or Tdap) [facility] Start: 11-29-2025 Tobacco Screening Tobacco Screening [facility] Start: 11-21-2025 End: 11-21-2025 Patient encounter procedure [facility] Start: 07-02-2025 End: 07-02-2025 Patient encounter procedure [facility] Start: 06-28-2025 End: 06-28-2025 Patient encounter procedure 06/28/2025 2:45 PM EDT Office Visit [facility] [address] [place] [id number] Trip Sosa MD [address] [place] [id number] [facility] Start: 06-18-2025 End: 12-29-2025 Thyroglobulin Thyroglobulin Lab Routine Thyroid cancer ([facility]/HCC) Expected: 06/18/2025 (Approximate), Expires: 12/29/2025 [facility] Comment on above: Expected: 06/18/2025 (Approximate), Expires: 12/29/2025 Start: 06-18-2025 End: 12-29-2025 Thyrotropin [Units/volume] in Serum or Plasma [facility] Work Phone: Comment on above: Expected: 06/18/2025 (Approximate), Expires: 12/29/2025 Start: 06-18-2025 End: 12-29-2025 Triiodothyronine (T3) [Mass/volume] in Serum or Plasma T3 Lab Routine Thyroid cancer ([facility]/HCC) Expected: 06/18/2025 (Approximate), Expires: 12/29/2025 [facility] Comment on above: Expected: 06/18/2025 (Approximate), Expires: 12/29/2025 Start: 06-01-2025 End: 06-01-2025 Patient encounter procedure 06/01/2025 8:15 AM EDT Office Visit [facility] Adult Endocr[facility]ology, A Department of [facility] [address] [place] [address] Ivon Mcmahon MD [address] [place] [address] [facility] Adult Endocr[facility]ology, A Department of [facility] Start: 05-11-2025 End: 05-11-2025 Patient encounter procedure 05/11/2025 9:30 AM EDT Office Visit [facility] [address] [place] [id number] Ilana Kumari DO [address] [place] [address] Vaginal irritation [facility] Comment on above: Vaginal irritation Start: 05-07-2025 Influenza vaccination [facility] Start: 01-11-2025 End: 01-11-2025 Patient encounter procedure 01/11/2025 9:15 AM EDT Office Visit [facility] [address] [place] [id number] Ever Woodward DO [address] [place] [address] [facility] Start: 01-04-2025 End: 01-04-2025 Clinical Support 01/04/2025 1:00 PM EDT Clinical Support HENRIQUE CORADO [address] [place] [phone] Kia Haines, [facility] [address] [place] [address] NOMYvonne CORADO Start: 01-02-2025 End: 01-02-2025 Telemedicine consultation with patient 01/02/2025 2:00 PM EDT Telemedicine [facility] [address] [place] [address] Vikki Orr MD [address] [place] [address] [place] [id number] [facility] Start: 12-29-2024 End: 12-29-2024 Patient encounter procedure [facility] Comment on above: Arrived Start: 12-21-2024 End: 12-21-2024 Patient encounter procedure 12/21/2024 1:45 PM EDT Office Visit [facility] [address] [place] [address] Trip Sosa MD [address] [place] [address] [facility] Start: 11-06-2024 End: 11-06-2024 Patient encounter procedure 11/06/2024 10:15 AM EST Office Visit [facility] [address] [facility] [place] [address] Ever Woodward DO [address] [facility] [place] [address] Arrived HENRIQUE JAV[facility] Comment on above: Arrived Start: 10-31-2024 End: 10-31-2024 Patient encounter procedure [facility] Comment on above: Encounter for gyneco logical examination without abnormal finding; Screening for malignant neoplasm of cervix; Encounter for screening mammogram for breast cancer Start: 09-18-2024 Diabetes Screening Diabetes Screenin g [facility] Start: 09-17-2024 Screening for malign ant neoplasm of breast Mammogram [facility] Start: 07-06-2024 End: 06-01-2025 Thyrotropin [Units/volume] in Serum or Plasma [facility] Work Phone: Comment on above: Expected: 07/06/2024 (Approximate), Expires: 06/01/2025 Start: 07-06-2024 End: 06-01-2025 Triiodothyronine (T3) [Mass/volume] in Serum or Plasma T3 Lab Routine Thyroid nodule (CMS/HCC) Expected: 07/06/2024 (Approximate), Expires: 06/01/2025 [facility] Comment on above: Expected: 07/06/2024 (Approximate), Expires: 06/01/2025 Start: 06-08-2024 End: 06-08-2024 Patient encounter procedure [facility] Comment on above: Arrived Start: 06-01-2024 End: 06-01-2024 Patient encounter procedure [facility] [place] Comment on above: Arrived Start: 05-24-2024 [facility] Start: 05-24-2024 End: 05-24-2024 Patient encounter procedure 05/24/2024 9:45 AM EDT Procedure Visit [facility] Eevr Woodward, DO [address] [place] [address] [facility] Start: 05-24-2024 [facility] Start: 05-07-2024 COVID-19 VACCINE ( season) COVID-19 VACCINE ( season) [facility] Start: 05-07-2024 COVID-19 VACCINE ( season) COVID-19 VACCINE ( season) [facility] Start: 05-07-2024 Influenza vaccination [facility] Start: 05-05-2024 End: 05-05-2024 Patient encounter procedure 05/05/2024 9:00 AM EDT Office Visit [facility] EDUARD[facility] [place] [address] [place] [address] Ever Woodward, DO [address] [place] [address] Arrived [facility]ELS LU[facility] EDUARDO [place] Comment on above: Arrived Start: 04-19-2024 Patient referral [facility] Work Phone: Start: 12-10-2023 Patient referral [facility] Work Phone: Start: 11-04-2023 End: 11-04-2023 Patient encounter procedure 11/04/2023 3:15 PM EST Office Visit [facility] [address] [place] [phone] Trip Sosa MD [address] [place] [phone] [facility] Start: 09-22-2023 Screening for malign ant neoplasm of breast MAMMOGRAM SCREENING DISCUSSION [facility] Start: 09-06-2023 Depression Assessment Depression Ass essment [facility] Start: 06-06-2023 End: 12-14-2023 Mri brain brain stem w/o w/contrast material MRI BRAIN WO/W IVCON Radiology Routine Developmental venous anomaly Expected: 06/06/2023 (Approximate), Expires: 12/14/2023 [facility] Work Phone: Comment on above: Expected: 06/06/2023 (Approximate), Expires: 12/14/2023 Start: 05-07-2023 COVID-19 VACCINE ( season) COVID-19 VACCINE ( season) [facility] Start: 05-07-2023 Influenza vaccination C [facility] Start: 04-22-2023 End: 04-22-2023 Patient encounter procedure 04/22/2023 Office Visit Cardiovascular Medicine Trip Sosa MD [address] [place] [phone] [facility] Start: 10-01-2022 End: 10-01-2022 Patient encounter procedure 10/01/2022 Office Visit Cardiovascular Medicine Trip Sosa MD [address] [place] [phone] [facility] Start: 09-18-2022 Thyroid stimulating hormone measurement TSH [facility] Start: 09-06-2022 DEPRESSION ASSESSMENT DEPRESSION ASS ESSMENT [facility] Start: 05-07-2022 Influenza vaccination O [facility] Start: 03-12-2022 Bacteria identified in Urine by Culture Urine Culture [facility] Start: 02-16-2021 DIABETES SCREEN DIABETES SCREEN [facility] Start: 12-17-2020 DIABETES SCREEN DIABETES SCREEN [facility] Start: 2020 COLOGUARD (FIT-DNA) COLOGUARD (FIT-D NA) [facility] Start: 2020 Colonoscopy [facility] Start: 2020 COLORECTAL CANCER SCREENING COLORECTAL CANCER SCREENING [facility] Start: [address] [facility] Start: 2020 FECAL OCCULT BLOOD FECAL OCCULT BLOO D [facility] Start: 2020 LIPID SCREEN LIPID SCREEN [facility] Start: 2020 Screening for malign ant neoplasm of colon [facility] Start: 2020 SIGMOIDOSCOPY SIGMOIDOSCOPY [facility] Start: 2015 Mammography MAMMOGRAM [facility] Start: 2015 Screening for malign ant neoplasm of breast [facility] Start: 2015 Screening mammography MAMMOGRA M SCREENING DISCUSSION [facility] Start: 2005 HPV TESTING HPV TESTING [facility] Start: 2005 Screening for malign ant neoplasm of cervix HPV Testing [facility] Start: 1996 PAP TESTING PAP TESTING [facility] Start: 1996 Screening for malign ant neoplasm of cervix [facility] Start: 1994 Administration of varicella zoster vaccine Zoster (Shingles) Vaccine (1 of 2) [employer] [facility] Start: 1994 Third diphtheria, te tanus and acellular pertussis (DTaP) vaccination TDAP (ADULT) [facility] Start: 1994 Urine microalbumin profile DTAP,TDAP ,TD (1 - Tdap) [facility] Start: 1993 Adult BMI Screening Adult BMI Screen ing [facility] Start: 1993 HIV SCREENING HIV SCREENING [facility] Start: 1993 HIV screening HIV Screening [facility] Start: 1993 Tetanus vaccination TETANUS [facility] Start: 1990 HIV screening HIV SCREENING DISCUSSION [facility] Start: 1987 Depression Screening Depression Scre [facility] Start: 1975 COVID-19 VACCINE (#1) COVID-19 VACCI NE (#1) [facility] Start: 1975 HEPATITIS B (1 of 3 - 3-dose series) HEPATITIS B (1 of 3 - 3-dose series) [facility] Start: 1975 Hepatitis C antibody , confirmatory test HEPATITIS C VIRUS SCREENING [facility] Start: 1975 Hepatitis C screening HEPATITI S C VIRUS SCREENING [facility] Start: 1975 Screening for malign ant neoplasm of colon [facility] Start: 1975 Tetanus vaccination TETANUS [facility] Bacteria identified in Urine by Culture [facility] Work Phone: DBT Breast - bilater al screening Bilateral screening mammogram with tomosynthesis Imaging Routine Encounter for screening mammogram for breast cancer Ordered: 10/31/2024 [facility] Comment on above: Ordered: 10/31/2024 IGP, RFX APTIMA HPV ASCU IGP, RF X APTIMA HPV ASCU Lab Routine Screening for malignant neoplasm of cervix Ordered: 10/31/2024 [facility] Work Phone: Comment on above: Ordered: 10/31/2024 End: 11-23-2024 MR Brain WO contrast MRI BRAIN WO IVCON Radiology Routine Vascular malformation Congenital vascular anomaly 1 Occurrences starting 10/25/2023 until 11/23/2024 [facility] Work Phone: Comment on above: 1 Occurrences starti ng 10/25/2023 until 11/23/2024 Patient Education Know your Meds [facility] Work Phone: Patient referral [facility] Work Phone: End: 11-29-2025 Thyroglobulin quantitative w/antibody (tumor marker) Thyroglobulin quantitative w/antibody (tumor marker) Lab Routine Thyroid cancer ([facility]) every 6 months for 2 Occurrences starting 11/29/2024 until 11/29/2025, 1 completed [facility] Comment on above: every 6 months for 2 Occurrences starting 11/29/2024 until 11/29/2025, 1 completed End: 11-29-2025 Thyrotropin [Units/volume] in Serum or Plasma TSH Lab Routine Thyroid cancer ([facility]) every 6 months for 2 Occurrences starting 11/29/2024 until 11/29/2025, 1 completed [facility] Work Phone: Comment on above: every 6 months for 2 Occurrences starting 11/29/2024 until 11/29/2025, 1 completed End: 11-29-2025 Thyroxine (T4) free [Mass/volume] in Serum or Plasma T4, free Lab Routine Thyroid cancer ([facility]) every 6 months for 2 Occurrences starting 11/29/2024 until 11/29/2025, 1 completed [facility] Comment on above: every 6 months for 2 Occurrences starting 11/29/2024 until 11/29/2025, 1 completed End: 11-29-2025 Triiodothyronine (T3) Free [Mass/volume] in Serum or Plasma T3, free Lab Routine Thyroid cancer ([facility]) every 6 months for 2 Occurrences starting 11/29/2024 until 11/29/2025, 1 completed [facility] Comment on above: every 6 months for 2 Occurrences starting 11/29/2024 until 11/29/2025, 1 completed Thyroid gland [facility] XR Lumbar spine 2 or 3 Views [facility] Immunizations Immunization Date Immunization Notes Care Provider Fa cilijason 07-09-2016 hepatitis A and hepatitis B vaccine Jessica Lopez [facility] 02-04-2016 hepatitis A and hepatitis B vaccine Jessica Lopez [facility] 01-06-2016 hepatitis A and hepatitis B vaccine Jessica Lopez [facility] 01-06-2016 tetanus toxoid, reduced diphtheria toxoid, and acellular pertussis vaccine, adsorbed Jessicaapril Lopez [facility] 01-06-2016 typhoid vaccine, unspecified formulation Jessica Lopez [facility] NEGATED: Highlighted row has not occurred!11-03-2023 influenza virus vaccine, unspecified formulation Jessica Lopez [facility] Payers Date Payer Category Payer Commercial Managed C are - [employer] [id number] 2022 Private [facility] Insurance [employer] [id number] 2014 Managed Care (unspecified) MMO Member Subscriber Plan / Payer (Effective 2014-Present) Name: Marianna Ramirez Relation to Subscriber: Spouse Name: LORI RAMIREZ Date of : 1973 (Home) Address: [address] [place] [address] Payer ID: Not on file Type: Not on file Address: [place] [id number] 2014 Unknown [id number] 1975 Unknown [id number] 2.16.840.1.315874.3.579.2. 593 1975 Unknown [id number] 2.16.840.1.846702.3.579.2. 593 1975 Unknown [id number] 2.16.840.1.333871.3.579.2. 593 1975 Unknown [id number] 2.16.840.1.246731.3.579.2. 593 1975 Unknown [id number] 2.16.840.1.003414.3.579.2. 593 1975 Unknown [id number] 2.16.840.1.199973.3.579.2. 593 1975 Unknown [id number] 2.16.840.1.490108.3.579.2. 593 1975 Unknown [id number] 2.16.840.1.810914.3.579.2. 593 1975 Unknown [id number] 2.16.840.1.565335.3.579.2. 727 1975 Unknown [id number] 2.16.840.1.540003.3.579.2. 727 1975 Unknown [id number] 2.16.840.1.403475.3.579.2. 727 1975 Unknown [id number] 2.16.840.1.690017.3.579.2. 727 1975 Unknown [id number] 2.16.840.1.072433.3.579.2. 727 1975 Unknown [id number] 2.16.840.1.329396.3.579.2. 727 1975 Unknown [id number] 2.16.840.1.910246.3.579.2. 594 1975 Unknown [id number] 2.16.840.1.659478.3.579.2. 594 1975 Unknown [id number] 2.16.840.1.759608.3.579.2. 594 1975 Unknown [id number] 2.16.840.1.249063.3.579.2. 594 1975 Unknown [id number] 2.16.840.1.555192.3.579.2. 594 1975 Unknown [id number] 2.16.840.1.174679.3.579.2. 9 1975 Unknown [id number] 2.16.840.1.041062.3.579.2. 1259 1975 Unknown [id number] 2.16.840.1.400560.3.579.2. 9 1975 Unknown [id number] 2.16.840.1.022308.3.579.2. 1259 1975 Unknown [id number] 2.16.840.1.850463.3.579.2. 1259 1975 Unknown [id number] 2.16.840.1.157444.3.579.2. 1259 1975 Unknown [id number] 2.16.840.1.642554.3.579.2. 1259 1959 Unknown [id number] 2.16.840.1.881074.19 Self-pay Self Pay [id number] Social History Date Type Detail Facility Tobacco smoking stat us NHIS Unknown if ever smoked [facility] Work Phone: Start: 1975 Sex Assigned At Female [facility] Start: 06-21-2018 End: 11-29-2024 Sex Assigned At [facility] Start: 03-20-2021 End: 11-29-2024 Tobacco smoking status NHIS Never smoked tobacco [facility] Start: 03-20-2021 End: 11-29-2024 Tobacco use and exposure Smokeless tobacco non-user [facility] Start: 03-19-2022 End: 06-26-2024 Alcohol intake Current non-drinker of alcohol (finding) [facility] Start: 03-19-2022 End: 11-29-2024 Alcohol intake [facility] Start: 1975 Sex Assigned At Not on file [facility] Start: 09-21-2022 End: 10-01-2022 Exposure to SARS-CoV-2 (event) Not sure [facility] Start: 06-21-2018 Alcohol intake Not Asked [facility] Tobacco smoking status Never [facility] Gender identity Identifies as fe male gender (finding) [facility] Start: 06-01-2024 End: 11-29-2024 Alcoholic beverage intake Lifetime non-drinker (finding) [facility] Start: 10-05-2023 Alcohol Comment Caffeine intake: 1-2 cups per day chocolate [facility] Start: 10-31-2024 End: 11-24-2024 Sex Female (finding) [facility] Start: 12-21-2024 Sexual orientation Heterosexual (finding) [facility] Goals Date Patient Goal Desired Activity /State Functional Status Date Assessment Result Facility 12-20-2023 Functional Status N/A [facility] 05-04-2023 Functional Status N/A [facility] 01-13-2023 Functional Status N/A [facility] 12-28-2022 Functional Status N/A [facility] 12-21-2022 Functional Status N/A [facility] Clinical Notes 03-12-2022 to 05-11-2025 Ilana Kumari, DO - 05/11/2025 9:30 AM EDTPaul Yvonne Woodward, DO - 03/29/2025 3:30 PM EDTPaul Yvonne Woodward, DO - 12/29/2024 9:00 AM Leslie Thornton, TERMITE EXTERMINATOR- JAVA TECHNICAL ARCHITECT - 12/21/2024 1:45 PM EDT Note Date & Type Note Facility 05-11-2025 History of Presen t illness Narrative Images from the original note were not included. Ilana Kumari, DPeace. 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 Pt thought it was her soap, since their formula changed. Pt was using Ivory soap. Denies any current itching. Pt states the cream did help with the itching. Pt states when she used monistat had burning sensation. LMP 04/24/25 Visit Vitals BP 112/72 Wt 152 lb BMI 27.80 kg/m Smoking Status Never BSA 1.74 m Allergies Allergen Reactions Gadolinium Derivatives Anaphylaxis and Rash Other Reaction(s): Chills, Dry Mouth, Itchy Throat [...] for past mild reaction Iodinated Contrast Media Other Reaction(s): Unknown Fentanyl Rash Rash Midazolam Rash This medication was taken with fentanyl and pt had a reaction, unknown which medication made the pt have a reaction This medication was taken with fentanyl and pt had a reaction, unknown which medication made the pt have a reaction History of Present Illness, Associated Treatments and Results - OB History Para Term AB Living 2 2 2 0 0 2 SAB IAB Ectopic Multiple Live Births 0 0 0 0 2 # Outcome Date GA Lbr Stuart/2nd Weight Sex Type Anes PTL Lv 2 Term 1 Term Vag-Spont Obstetric Comments Pap smear 10/07/23 wnl Mammogram 09/29/24 [facility] [place] Review of Systems - Const: Denies appetite change, fever, chills. Allergy: Denies medication reaction. Ocular: Denies visual acuity change. ENT: Denies hearing change. Endoc: Denies weight loss. Resp: Denies dyspnoea, wheezing. Cardiac: Denies angina, palpitations. GI: Denies nausea, vomiting. Haem: Denies bleeding. : Denies incontinence. MSK: Denies arthralgias, joint oedema. Derm: Denies rash, hair loss. Neuro: Denies ataxia, tremor. Also see HPI for elements of ROS documented therein and for details of positive findings, which shall supersede the foregoing. Medication Documentation Review Audit Reviewed by Jaymie Clarke MA (Content Producer) on 05/11/25 at 0927 Medication Order Taking? Sig Documenting Provider Last Dose Status amLODIPine (Norvasc) 2.5 MG tablet [id number] No Ever Woodward, Taking Active carvedilol (Coreg) 25 MG tablet [id number] No Ilana Kumari DO Taking Active cetirizine (ZyrTEC ALLERGY) 10 MG tablet [id number] No 1 (one) time each day at the same time Ilana Kumari DO Taking Active fluconazole (Diflucan) 150 MG tablet [id number] 1 tablet orally every 3 days Ilana Kumari DO Active levothyroxine (Synthroid, Levoxyl) 25 MCG tablet [id number] TAKE 1 TABLET (25 MCG TOTAL) BY MOUTH IN THE MORNING. 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 Diarrhea 05/04/2024 Esophageal dysphagia 03/03/2019 Added automatically from request for surgery [id number] Family history of lupus erythematosus 05/21/2016 Family history of rheumatoid arthritis 05/21/2016 Fibromyalgia 05/21/2016 Heart murmur Heartburn 05/04/2024 Hypertension Insomnia 05/04/2024 Intestinal metaplasia of gastric cardia 07/12/2019 Added automatically from request for surgery [id number] Irritable bowel syndrome Irritable bowel syndrome with both constipation and diarrhea 03/03/2019 Added automatically from request for surgery [id number] Joint stiffness of multiple sites 05/21/2016 Laryngopharyngeal reflux 05/04/2024 Left thyroid nodule 05/04/2024 Lightheadedness 05/04/2024 Localized swelling, mass and lump, head 05/04/2024 Lumbar pain 05/04/2024 Menstrual disorder 05/04/2024 Menstrual migraine 05/04/2024 Mixed irritable bowel syndrome 05/04/2024 Myalgia 05/21/2016 Nausea 05/04/2024 Numbness and tingling sensation of skin 05/21/2016 Other somatoform disorders 05/04/2024 Pain in joint, multiple sites 05/21/2016 Palpitations 05/04/2024 Postoperative pain 05/31/2024 RUQ pain 05/04/2024 Past Surgical History: Procedure Laterality Date HEART CATH 2002 biopsy OTHER SURGICAL HISTORY 1982 Urethra extended TENDON REPAIR 2011 THYROIDECTOMY, PARTIAL Left 05/24/2024 VAGINAL DELIVERY x2 Family History Problem Relation Name Age of Onset Diabetes Mother Trina Heart disease Father Lupus Sister Chelsy Flaquito Rheum arthritis Sister Chelsy Flaquito Diabetes Maternal Grandmother Gladiene Diabetes Paternal Grandmother Marge Heart disease Father's Brother David Cancer Father's Brother David Cancer Father's Sister Inez Stroke Maternal Grandfather Charles Physical Exam - General appearance, mentation, extraocular movements, facial strength and movement, hearing, upper and lower extremity strength and tone, sensation to gross testing, coordination, and gait are normal or at baseline unless noted below. General: Alert, cooperative, no distress, appears stated age Head: Normocephalic, without obvious abnormality, atraumatic Eyes: sclera anicteric Ears: no obvious hearing deficit Skin: Warm and dry Heart: Regular rate Lungs: Respirations unlabored Extremities normal, atraumatic, no cyanosis or edema FEMALE GENITOURINARY: atrophic vaginal mucosa, cervix absent of lesions, nontender, uterus AV, mobile, ovaries nonpalpable and non tender Diagnoses and all orders for this visit: Vaginal atrophy - estradiol (Estrace) 0.1 MG/GM vaginal cream; Insert 1 g into the vagina 2 (two) times a week Use 1gm nightly for the first week. Vaginal irritation Discussed findings of exam- vaginal atrophy noted, no inflammation or sign of infection today. Discussed options. Wanting to start vaginal estrogen cream. Patient to call with questions/concerns. Counseled on use. ICD-10-CM 1. Vaginal atrophy N95.2 estradiol (Estrace) 0.1 MG/GM vaginal cream 2. Vaginal irritation N89.8 documented in this encounter [facility] 03-29-2025 History of Presen t illness Narrative Subjective Patient ID: Marianna Ramirez is a 49 y.o. female who presents for Swollen Glands (Swollen lymph node behind ear) HPI This patient presents for evaluation of a lump behind her right ear. Patient noticed a lump of the postauricular soft tissues approximately 1 month ago. No associated pain. Denies any trauma to this region. Presents today for further recheck. Does have a history of thyroid carcinoma. Review of Systems Patient does describe difficulties with joint pain and aching. Describes some fatigue. Symptoms are usually improved with moving around and exercising. The lump behind her right ear has been unchanged for approximately 1 month. No difficulties with skin irritation. Denies any shortness of breath. Continues to take Synthroid. No longer having significant difficulties with nasal congestion and drainage. The rest of her review of systems is unchanged [facility] Physical Exam General Examination: General [...] full range of motion, no cervical lymphadenopathy, no evidence of thyromegaly. A small nodular mass is noted in the posterior neck behind the right ear. This is very consistent with a small lymph node. The carotid artery on the right side is palpated to be very prominent. There is no obvious evidence of mass formation. Her previous incision site is well healed. Lymph nodes: Right postauricular cervical lymphadenopathy Skin: Warm and dry, no [...] and all orders for this visit: Thyroid cancer (HCC) Comments: patient is scheduled for follow-up visit in June this year Postoperative hypothyroidism Comments: pending thyroid functions in June Neck mass Comments: the small lymph node of the postauricular region will remain under observation. This patient may benefit from using [id number] turmeric as an anti-inflammatory. She will discuss possible use of anti-inflammatory medication with the maintenance technician 2nd shift. Consider meloxicam? documented in this encounter [facility] 12-29-2024 History of Presen t illness Narrative Subjective Patient ID: Marianna Ramirez is a 49 y.o. female who presents for Thyroid Cancer (6 month with US / Labs) HPI 49-year-old female presents today for recheck. She is status post thyroid lobectomy for removal of thyroid carcinoma. Has been having some difficulties feeling poorly with nasal congestion and drainage. Also describing some difficulties with her voice. Has seen an customer support professional and started on low-dose Synthroid. Presents today for further evaluation treatment Review of Systems Patient denies any pain or fever. Having difficulties with hoarseness as well as postnasal drip. Currently taking medication for sinus infection.Taking low-dose Synthroid. The rest of her review of systems is unchanged. 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 Diarrhea 05/04/2024 Esophageal dysphagia 03/03/2019 Added automatically from request for surgery [id number] Family history of lupus erythematosus 05/21/2016 Family history of rheumatoid arthritis 05/21/2016 Fibromyalgia 05/21/2016 Heart murmur Heartburn 05/04/2024 Hypertension (CMS/HCC) Insomnia 05/04/2024 Intestinal metaplasia of gastric cardia 07/12/2019 Added automatically from request for surgery [id number] Irritable bowel syndrome Irritable bowel syndrome with both constipation and diarrhea 03/03/2019 Added automatically from request for surgery [id number] Joint stiffness of multiple sites 05/21/2016 Laryngopharyngeal reflux 05/04/2024 Left thyroid nodule (CMS/HCC) 05/04/2024 Lightheadedness 05/04/2024 Localized swelling, mass and lump, head 05/04/2024 Lumbar pain 05/04/2024 Menstrual disorder 05/04/2024 Menstrual migraine (CMS/HCC) 05/04/2024 Mixed irritable bowel syndrome 05/04/2024 Myalgia 05/21/2016 Nausea 05/04/2024 Numbness and tingling sensation of skin 05/21/2016 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 Pain in joint, multiple sites 05/21/2016 Palpitations 05/04/2024 Postoperative pain 05/31/2024 RUQ pain 05/04/2024 Current Outpatient Medications: amLODIPine (Norvasc) 2.5 MG tablet, , Disp: , Rfl: carvedilol (Coreg) 25 MG tablet, , Disp: , Rfl: cetirizine (ZyrTEC ALLERGY) 10 MG tablet, 1 (one) time each day at the same time, Disp: , Rfl: levothyroxine (Synthroid, Levoxyl) 25 MCG tablet, TAKE 1 TABLET (25 MCG TOTAL) BY MOUTH IN THE MORNING., Disp: , Rfl: Wheat Dextrin (Benefiber) powder, , Disp: , Rfl: Past Surgical History: Procedure Laterality Date HEART CATH 2002 biopsy OTHER SURGICAL HISTORY 1982 Urethra extended TENDON REPAIR 2011 THYROIDECTOMY, PARTIAL Left 05/24/2024 VAGINAL DELIVERY x2 Social History Socioeconomic History [...] Social History Narrative Not on file Social Drivers of Health Financial Resource Strain: Not on file Food Insecurity: No Food Insecurity (11/29/2024) Received from [facility] Hunger Screening Within the past 12 months we worried whether our food would run out before we got money to buy more.: Never True Within the past 12 months the food we bought just didn't last and we didn't have money to get more.: Never True Transportation Needs: Not on file Physical Activity: Not on file Stress: Not on file Social Connections: Not on file Intimate Partner Violence: Not on file Housing Stability: Not on file Objective ENT Physical Exam General Examination: General overview: Normal, age-appropriate, no evidence of distress Head: Normocephalic, atraumatic Eyes: Pupils are equally round and reactive to light and accommodation, extraocular muscles are intact Ears: External ear architecture within normal limits, ear canals are patent, tympanic membranes are intact. Nose: External nose unremarkable, nares patent, septum intact, mild congestion. Nasal endoscopy: Consent: Proper consent is obtained Anesthesia: Nasal airway is anesthetized using aerosolized lidocaine and epinephrine Procedure: After decongestion, a diagnostic nasal endoscopy was performed bilaterally. The endoscope was placed into the nose and a thorough inspection of the internal nose including the septum, skull base, lateral nasal wall structures is performed. There is mild congestion noted, no evidence of ulcer, mass, lesion, tumor or polyp or other major abnormality. Further advancement down to the vocal cords revealed good motion. Scope is then removed without difficulty. Disposition: This patient tolerated this procedure extremely well. Fully instructed on postprocedure care and follow-up. Oral cavity: Mucosa moist, no evidence of ulcer, mass, or lesion Throat: Clear Neck/thyroid: Neck supple, full range of motion, no cervical lymphadenopathy, the area of her incision has healed up very nicely. Thyroid ultrasound: Indication: Thyroid goiter /thyroid nodule(s) Consent: Proper consent is obtained. The procedure risks are explained in detail. Questions were encouraged and answered Anesthesia: No anesthesia given Preparation: The patient was placed in proper position. Patient is prepped in standard fashion. Findings: Ultrasound is completed of the thyroid gland. Residual thyroid lobe reveals absolutely no evidence of nodule formation. Normal size. Disposition: The patient tolerated the procedure extremely well. Patient is fully instructed on postprocedure care and follow-up in this office. Current thyroid functions are normal. Thyroglobulin is measured at 8.8 this will be followed. Lymph nodes: No cervical lymphadenopathy Skin: Warm [...] normal affect, no evidence of distress Assessment/Plan documented in this encounter [facility] 12-21-2024 History of Presen t illness Narrative Subjective History of Present Illness We have had the pleasure of seeing your patient, Marianna Ramirez who is a 49 y.o. female who presents to the [facility] Failure [facility] for follow-up of HFrEF (post ) w/ recovered EF and microvascular disease Today, the patient denies any recent emergency room visits or hospitalizations. Had covid in September, lost sense of taste/smell and since this has had reoccurring right ear congestion/sore throat (no other respiratory symptoms)-has ENT follow up soon so will discuss. Has new born twin boys (born in early November). 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 Here with . Active. On follow up today she denies chest pain, palpitations, near-syncope, syncope, orthopnea, paroxysmal nocturnal dyspnea, claudication, lower extremity edema. she has been able to take all medications as prescribed, and is closely monitoring sodium intake. 10 point ROS is negative except as noted above. Family/Social medical history reviewed in EMR. Current Outpatient Medications Medication Sig amLODIPine 5 MG tablet Take 1 tablet by mouth daily. carveDILOL 25 MG tablet Take 2.5 tablets by mouth 2 times daily with meals. Cetirizine 10 MG tablet Take 1 tablet by mouth daily as needed. Levothyroxine 25 MCG tablet Take 1 tablet by mouth every morning before breakfast. Wheat Dextrin (BENEFIBER PO) Take 1 Dose by mouth. Powder that pt takes once a day Objective Review of Systems Vitals: Blood pressure 103/66, pulse 89, resp. rate 18, height 1.575 m (5' 2 ), weight 70.8 kg (156 lb), SpO2 98%. Body mass index is 28.53 kg/m . Wt Readings from Last 3 Encounters: 12/21/24 70.8 kg (156 lb) 06/26/24 68.5 kg (151 lb) 06/22/24 66.2 kg (146 lb) Physical Exam Constitutional: General: She is [...] . Lab Results Component Value Date WBC 6.9 12/07/2024 MCV 84.3 04/02/2016 Lab Results Component Value [...] and function. No hemodynamically significant valve disease. CT cardiac angio 06/22/24: 1. Normal origin and course of coronary arteries. 2. No coronary calcification. Total Agatston CAC score of 0. 3. Normal coronaries without any evidence of significant atherosclerotic disease. 4. Additional incidental findings as noted below. Assessment and Plan 1. cardiomyopathy w/ recovered EF (ACC stage C/NYHA class II) and Microvascular dx/Syndrome X. Warm, dry. -Continue Coreg 62.5mg twice a day with food, norvasc 2.5mg BID -CT angio reassuring and looked wonderful (refer above) -Recent echo above with normal EF, no valvular disease. 2. HLD -much improved with lifestyle changes (weight loss/diet). Great job! Defer statin at this time and will continue to closely monitor. Recheck at follow up. Lab Results Component Value Date CHOLESTEROL 167 12/19/2022 TRIG 66 12/19/2022 HDL 46 12/19/2022 LDLCALC 107.8 12/19/2022 3. Follicular carcinoma of thyroid s/p left thyroid lobectomy in 05/2024 -following w/ Endocrine She will follow-up in the clinic 6 [...] seen in conjunction with Dr. Sosa. Patient Education Patient education regarding the following topic(s) was provided on 12/21/2024: plan of care . Those in attendance for the education included: patient and spouse. Barriers in providing the education included: none. The following methods were used in providing the education: explanation and handout. [facility] handouts given included: After visit summary. The response of those in attendance was: states/identifies education topic. The following Clinical Intervention(s) occurred during today s visit: Orthostatic or Coarctation vital signs completed and Extensive teaching provided to patient and or support team regarding plan of care Patient seen with DIRECT SALES CONSULTANT I saw and personally examined this patient with the nurse practitioner. The patient is generally doing well and is compensated on examination. Coronary CT Angio showed no CAD and a calcium score of 0. We will continue the current treatment plan, as outlined in the DIRECT SALES CONSULTANT note. The plan was developed mutually at the time of the clinic visit. The nurse practitioner and I spoke with the patient and provided written and verbal instructions for the patient. The note has been reviewed and I agree with the assessment and plan. Follow up arrangements were made prior to the patient being discharged from the clinic. documented in this encounter [facility] 12-21-2024 Instructions Kristine Thornton APRN-JAVA TECHNICAL ARCHITECT - 12/21/2024 1:45 PM EDT The following instructions were given today: -no medicine changes today Your after visit summary (AVS) is viewable in [facility] My Chart. Call RN if you have cardiac questions/concerns M-F 8 to 4:30 ; office # [phone], option 6, then option 2. Reducing falls is important to all health care providers. Each time you come to clinic you are asked if you have fallen since your last visit. Contact our office should you have significant dizziness or lightheadedness as some heart medications may have this adverse effect. We will review your medication list/symptoms and make any needed adjustments. We want to minimize the risk of falling as it relates to dizziness/lightheadedness. Guidelines for home management: 1. Continue to monitor weight first thing each morning. 2. Report to the CHF CLINIC ([phone]) any significant weight change. Remember that weight [...] to have labs/tests run outside of the [facility] and you do not hear from us 1-2 days after they are performed, you must call us to ensure we received the results. Office fax # [phone]. No news does not necessarily mean that your tests are normal, it could mean we did not get the results. For questions/updates: please provide your name with spelling, date of and question or update All calls are prioritized and responses researched, if possible, prior to calls being returned. Call Scheduling for any appointment/procedure verification or changes [phone], option 7 or [facility] at [phone], option 1. documented in this encounter [facility] 11-30-2024 Miscellaneous Notes PLEASE SIGN AND SEND documented in this encounter [facility] 11-30-2024 Telephone encounter Note PLEASE SIGN AND SEND [facility] 11-29-2024 History of Presen t illness Narrative Reason for Visit: Marianna Ramirez is a 49 y.o. female who is being seen today in consultation at the request of CJ LAZO MD for her thyroid cancer. 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 Pt was told by the surgeon that she did not need completion thyroidectomy. Not on any thyroid supplements. Reports fatigue and weight gain. Family history of thyroid disease: No Past Medical History: Diagnosis Date Cardiomyopathy ([facility]-H[facility]) 2002 Past Surgical History: Procedure Laterality Date THYROIDECTOMY, PARTIAL Current Outpatient Medications: amLODIPine (NORVASC) 5 mg tablet, Take 1 tablet (5 mg total) by mouth., Disp: , Rfl: carvediloL (COREG) 25 mg tablet, 1 tablet (25 mg total)., Disp: , Rfl: Allergies Allergen Reactions Iodinated Contrast Media Shortness Of Breath, Rash and Wheezing Fentanyl Rash Versed [Midazolam] Rash History reviewed. No pertinent family history. Social History: reports that she has never smoked. She has never used smokeless tobacco. She reports that she does not drink alcohol and does not use drugs. Review of Systems: 12 systems were reviewed and were negative except for what has been mentioned above. Physical Exam: Vitals: 11/29/24 1125 BP: 106/74 Weight: 72.1 kg (158 lb 14.4 oz) General appearance: Awake alert and oriented in no acute distress. HEENT: normocephalic, atraumatic. SKIN: no acanthosis nigricans noted on neck. HAIR: Normal facial hair growth, no hirsuitism. EYES: no exopthalmos present, extraocular movement intact (EOMI), no lid retraction noted, no chemosis. MOUTH/JAW: No lip enlargement, No widening of teeth spaces. NECK: let thyroid lobe is surgically absent. CHEST: No nasal flaring, no cough. ABDOMEN: No injection site lipodystrophy. ACROMEGALIC EXTREMITY FEATURES are not present. EXTREMITIES: no edema. NEUROLOGIC: alert and oriented. Labs: 06/2024: TSH 2.1 TT4 6.4 08/2024 TSH 1.7 Thyroid Imaging: Neck u/s from 04/2024 showed 3.8 cm left thyroid nodule Assessment/Plan: Marianna Ramirez presents today for evaluation of her thyroid cancer. 1. Thyroid cancer (CMS-HCC) (Primary) - The [place] [employer] Guidelines for I 131 therapy for diffentiated thyroid cancer are: MCCONNELL ablation is recommended for all patients with known distant metastases, gross extrathyroidal extension of the tumor regardless of tumor size, or primary tumor size >4 cm even in the absence of other higher risk features. The [place] [employer] Guidelines for I 131 ablation are: MCCONNELL ablation is recommended for selected patients with 1-4 cm thyroid cancers confined to the thyroid, who have documented lymph node metastases, or other higher risk features (see preceding paragraphs) when the combination of age, tumor size, lymph node status, and individual histology predicts an intermediate to high risk of recurrence or from thyroid cancer. Recommendation rating: C (for selective use in higher risk patients) MCCONNELL ablation is not recommended for patients with unifocal cancer <1 cm without other higher risk features (see preceding paragraphs). Recommendation rating: E MCCONNELL ablation is not recommended for patients with multifocal cancer when all foci are <1 cm in the absence other higher risk features (see preceding paragraphs). Recommendation rating: E - TSH; Standing - Thyroglobulin quantitative w/antibody (tumor marker); Standing - T4, free; Standing - T3, free; Standing - levothyroxine (SYNTHROID, LEVOTHROID) 25 MCG tablet; Take 1 tablet (25 mcg total) by mouth in the morning. Dispense: 90 tablet; Refill: 1 2. Postoperative hypothyroidism - TSH goal 0.1 or less - levothyroxine (SYNTHROID, LEVOTHROID) 25 MCG tablet; Take 1 tablet (25 mcg total) by mouth in the morning. Dispense: 90 tablet; Refill: 1 - Thyroid medication instructions: -Take the thyroid medication in the morning on an empty stomach (preferred method) -Do not take the thyroid medication at the same time as iron or soy containing products - Wait 2 hours before taking other meds like iron, calcium and mvt -If you forget one pill, take later in the day; or take 2 pills the next day to make up the missed dose Return to clinic: 6 months Ivon Mcmahon MD [facility] [address] [facility] [address] Dept: [phone] documented in this encounter [facility] [employer] [facility] 11-06-2024 History of Presen t illness Narrative Subjective Patient ID: Marianna Ramirez is a 49 y.o. female who presents for Facial Pain (New Problem : right sided nose pain) HPI This patient presents for evaluation of right-sided nasal pain. Symptoms began approximately 2 weeks ago. Describes significant palpation discomfort of the right nose. Had some mild improvement using Zyrtec. Presents today for further evaluation and treatment. Does have a history of thyroid carcinoma. Review of Systems Patient denies any associated fever. Has been using steroid nasal spray recently with good results. Denies any difficulties with voice or swallow. The rest of her review of systems is unchanged. Objective ENT Physical Exam General Examination: General overview: Normal, age-appropriate, no evidence of distress, voice is good Head: Normocephalic, atraumatic Eyes: Pupils are equally round and reactive to light and accommodation, extraocular muscles are intact Ears: External ear architecture within normal limits, ear canals are patent, tympanic membranes are intact. Nose: External nose unremarkable, nares patent, septum intact, bilateral nasal congestion with turbinate enlargement, greater on the right. No evidence of infection. Oral cavity: Mucosa moist, no evidence of ulcer, mass, or lesion Throat: Clear Neck/thyroid: Neck supple, full range of motion, no cervical lymphadenopathy, no evidence of thyromegaly , the area of her previous incision is well healed. Palpation yields no evidence of enlargement Lymph nodes: No cervical lymphadenopathy Skin: Warm [...] Diagnoses and all orders for this visit: Chronic rhinitis Comments: recommend using steroid nasal spray on a daily basis. Nasal pain Comments: Patient describes significant improvement of her symptoms recently. She will call if her symptoms worsen. Thyroid carcinoma ([facility]) Comments: Patient is scheduled for thyroid ultrasound to be completed in 1 month documented in this encounter [facility] 10-31-2024 Evaluation note Diagnosis Onset Date Resolution Otitis media with effusion acute October 31, 9:15am [facility] Work Phone: 1(518) 468-719002-25-2025 Evaluation note* Diagnosis Onset Date Resolution Status Admit Date Otitis media with effusion acute October 31, 2024 9:15am Allergic rhinitis acute November 042024 8:56am Thyroid cancer acute November 8:56am [facility] Work Phone: 1(145) 787-607702-25-2025 History of Present illness Narrative* Ilana Kumari DO - 10/31/2024 10:45 AM EST Images from the original note were not included. Ilana Kumari D.O. Obstetrics and Gynecology Patient: Marianna Ramirez : 1975 (49 y.o.) Yearly Wellness Exam Date: 10/31/2024 Reason for Visit - Chief Complaint Patient presents with Gynecologic Exam Denies concerns. Denies bowel/bladder/breast concerns. LMP 10/17/24 menses monthly. Pt up to date with mammogram. Visit Vitals BP 122/80 Wt 156 lb LMP 10/17/2024 BMI 28.53 kg/m Smoking Status Never BSA 1.76 m Allergies Allergen Reactions Gadolinium Derivatives Anaphylaxis and Rash Other Reaction(s): Chills, Dry Mouth, Itchy Throat [...] for past mild reaction Iodinated Contrast Media Other Reaction(s): Unknown Fentanyl Rash Rash Midazolam Rash This medication was taken with fentanyl and pt had a reaction, unknown which medication made the pthave a reaction This medication was taken with fentanyl and pt had a reaction, unknown which medication made the pthave a reaction History of Present Illness, Associated Treatments and Results - OB History Para Term AB Living 2 2 2 0 0 2 SAB IAB Ectopic Multiple Live Births 0 0 0 0 2 # Outcome Date GA Lbr Stuart/2nd Weight Sex Type Anes PTL Lv 2 Term 1 Term Vag-Spont Obstetric Comments Pap smear 10/07/23 wnl Mammogram 09/29/24 [facility] [place] Review of Systems - General: Chills denies. Allergy/Immunology: Rash Denies. ENT: Denies Difficulty swallowing. Endocrine: Denies Cold intolerance denies. Heat intolerance denied. Respiratory: Denies Chest pain denies. Shortness of breath denies. Breast: Denies Bloody nipple discharge denies. Breast lump denies. Cardiovascular: Denies Chest pain. Gastrointestinal: Abdominal pain denies. Blood in stool denies. Hematology: Easy bruising denies. Prolonged bleeding denies. Women Only: Breast lump denies. Vaginal bleeding between periods is denied. Vaginal discharge/itching denied. Genitourinary: Blood in urine denies. Painful urination denies. Incontinence denies. Skin: Hair changes. Neurologic: Seizures denied. Stroke denies. Psychiatric: Anxiety denies. Depressed mood denies. Medication Documentation Review Audit Reviewed by Jaymie Clarke MA (Content Producer) on 10/31/24 at 1057 Medication Order Taking? Sig Documenting Provider Last Dose Status amLODIPine (Norvasc) 2.5 MG tablet [id number] No Ever Woodward, DO Taking Active carvedilol (Coreg) 25 MG tablet [id number] No TAKE 2.5 TABLETS BY MOUTH 2 TIMES DAILY WITH MEALS. Ilana Kumari, DO Taking Active cetirizine (ZyrTEC ALLERGY) 10 MG tablet [id number] No 1 (one) time each day at the same time Ilana Kumari DO Taking Active Discontinued 10/31/24 1057 Wheat Dextrin (Benefiber) powder [id number] No as directed Orally Ialna Kumari, DO Taking Active Past Medical History: Diagnosis Date Abdominal bloating 05/04/2024 Abdominal cramping 05/04/2024 Abnormal uterine bleeding 05/04/2024 Acid reflux 05/04/2024 Anemia Arthralgia 05/04/2024 Bilateral hearing loss 05/04/2024 Cardiomyopathy (CMS/HCC) Cardiomyopathy (CMS/HCC) 10/06/2002 Chronic pharyngitis 05/04/2024 Diarrhea 05/04/2024 Esophageal dysphagia 03/03/2019 Added automatically from request for surgery [id number] Family history of lupus erythematosus 05/21/2016 Family history of rheumatoid arthritis 05/21/2016 Fibromyalgia 05/21/2016 Heart murmur Heartburn 05/04/2024 Hypertension (CMS/HCC) Insomnia 05/04/2024 Intestinal metaplasia of gastric cardia 07/12/2019 Added automatically from request for surgery [id number] Irritable bowel syndrome Irritable bowel syndrome with both constipation and diarrhea 03/03/2019 Added automatically from request for surgery [id number] Joint stiffness of multiple sites 05/21/2016 Laryngopharyngeal reflux 05/04/2024 Left thyroid nodule (CMS/HCC) 05/04/2024 Lightheadedness 05/04/2024 Localized swelling, mass and lump, head 05/04/2024 Lumbar pain 05/04/2024 Menstrual disorder 05/04/2024 Menstrual migraine (CMS/HCC) 05/04/2024 Mixed irritable bowel syndrome 05/04/2024 Myalgia 05/21/2016 Nausea 05/04/2024 Numbness and tingling sensation of skin 05/21/2016 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 Pain in joint, multiple sites 05/21/2016 Palpitations 05/04/2024 Postoperative pain 05/31/2024 RUQ pain 05/04/2024 Past Surgical History: Procedure Laterality Date HEART CATH 2002 biopsy OTHER SURGICAL HISTORY 1982 Urethra extended TENDON REPAIR 2012 THYROIDECTOMY, PARTIAL Left 05/24/2024 VAGINAL DELIVERY x2 Family History Problem Relation Name Age of Onset Diabetes Mother Trina Heart disease Father Lupus Sister Diabetes Maternal Grandmother Gladiene Diabetes Paternal Grandmother Margderian Heart disease Father's Brother David Cancer Father's Brother David Cancer Father's Sister Inez Physical Exam - General appearance, mentation, extraocular movements, facial strength and movement, hearing, upper and lower extremity strength and tone, sensation to gross testing, coordination, and gait are normalor at baseline unless noted below. General Examination: GENERAL APPEARANCE: alert oriented well developed, well nourished. HEAD: normocephalic atraumatic. EYES: sclera anicteric. EARS: no obvious hearing deficit. SKIN: warm and dry. HEART: regular rate and rhythm. LUNGS: clear to auscultation bilaterally. CHEST: axillary nodes grossly normal. BREASTS: no masses palpable bilaterally, normal nipples bilaterally. ABDOMEN: soft, nontender, nondistended, no masses palpable. BACK: no costovertebral angle tenderness, no obvious scoliosis/kyphosis. FEMALE GENITOURINARY: normal vaginal mucosa, cervix absent of lesions, nontender, uterus AV, mobile, ovaries nonpalpable and nontender. EXTREMITIES: no edema. NEUROLOGIC: alert and oriented. PSYCH: cooperative with exam. Diagnoses and all orders for this visit: Encounter for gynecological examination without abnormal finding Screening for malignant neoplasm of cervix - IGP, RFX APTIMA HPV ASCU Encounter for screening mammogram for breast cancer - Bilateral screening mammogram with tomosynthesis Pap, pelvic and breast exam completed. Findings of today's exam discussed with the patient. Continue MSBE. Ca/Vit D recommendations reviewed with the patient. The patient is to contact the office with any changes to her gynecological condition. The patient is to return in 1 year or as needed ICD-10-CM 1. Encounter for gynecological examination without abnormal finding Z01.419 2. Screening for malignant neoplasm of cervix Z12.4 IGP, RFX APTIMA HPV ASCU 3. Encounter for screening mammogram for breast cancer Z12.31 Bilateral screening mammogram with tomosynthesis documented in this encounterReynolds County General Memorial [id number] History of Present illness Narrative* Mario Pascal RN - 06/22/2024 1:15 PM EDT Patient Education Patient education regarding the following topic(s) was provided on 06/22/2024: plan of care . Those in attendance for the education included: patient and spouse. Barriers in providing the education included: none. The following methods were used in providing the education: explanation and handout. [facility] handoutsgiven included: After visit summary. The response of those in attendance was: states/identifies education topic. The following Clinical Intervention(s) occurred during today s visit: Orthostatic or Coarctation vital signs completed and Extensive teaching provided to patient and or support team regarding plan ofcare * Kristine Thornton, TERMITE EXTERMINATOR-JAVA TECHNICAL ARCHITECT - 06/22/2024 1:15 PM EDT Subjective History of Present Illness We have [...] worsening symptoms including SOB w/ exertion (has beenunable to exercise), fatigue. Feels SOB has progressed and at times w/ ADLs. Some days it is betterthan others. Steps typically the worst-feels muscles were [...] Dr. Sosa. * Trip Sosa MD - 06/22/2024 1:15 PM EDT Patient seen with DIRECT SALES CONSULTANT I saw and personally examined this patient with the nurse practitioner. The patient complains of worsening shortness of breath with exertion and is compensated on examination. Results of CT angiogramare pending. She has microvascular CAD. We will continue the current treatment plan, as outlined in the DIRECT SALES CONSULTANT note, and consider increasing amlodipine dose if [...] discharged from the clinic. documented in this encounterChillic[facility]10-17-2024 Instructions* Patient Instructions* REINA Erickson - 06/22/2024 1:15 PM EDT [...] M-F 8 to 4:30 ; office # [phone], option 6, then option 2. Guidelines for home management: 1. Continue to monitor weight first thing each morning. 2. Report to the CHF CLINIC ([phone]) any significant weight change. Remember that weight [...] to have labs/tests run outside of the [facility] and you do not hear from us1-2 days after they are performed, you must call us to ensure we received the results. Office fax #[phone]. No news does not necessarily mean that your tests are normal, it could mean we did not get the results. For questions/updates: please provide your name with spelling, date of and question or update All calls are prioritized and responses researched, if possible, prior to calls being returned. Call Scheduling for any appointment/procedure verification or changes [phone], option 7 or [facility] Schedulers at [phone], option 1. documented in this encounterOSUniversity Hospitals [facility]10-03-[facility] History of Present illness Narrative* Ever Woodward DO - 06/08/2024 3:00 PM EDT Subjective Patient ID: Marianna Ramirez is a [...] of her thyroid functions. documented in this encounterReynolds County General Memorial [id number] History of Present illness Narrative* Ever Woodward DO - 06/01/2024 10:45 AM EDT Subjective Patient ID: Marianna Ramirez is a [...] she has any difficulties. documented in this encounterReynolds County General Memorial [id number] History of Present illness Narrative* Ever Woodward DO - 05/24/2024 9:45 AM EDT Subjective Patient ID: Marianna Ramirez is a [...] the office as scheduled documented in this encounterReynolds County General Memorial [id number] History of Present illness Narrative* Ever Woodward DO - 05/05/2024 9:00 AM EDT Subjective Patient ID: Marianna Ramirez is a [...] any pain but does describe pressure sensations inthe left side of her neck. Denies any [...] 03/03/2019 Added automatically from request for surgery [id number] Family history of lupus erythematosus 05/21/2016 Family history of rheumatoid arthritis 05/21/2016 Fibromyalgia 05/21/2016 Heart murmur Heartburn 05/04/2024 Hypertension (CMS/HCC) Insomnia 05/04/2024 Intestinal metaplasia of gastric cardia 07/12/2019 Added automatically from request for surgery [id number] Irritable bowel syndrome Irritable bowel syndrome with both constipation and diarrhea 03/03/2019 Added automatically from request for surgery [id number] Joint stiffness of multiple sites 05/21/2016 Laryngopharyngeal reflux 05/04/2024 Left thyroid nodule (CMS/HCC) 05/04/2024 Lightheadedness 05/04/2024 Localized swelling, mass and lump, head 05/04/2024 Lumbar pain 05/04/2024 Menstrual disorder 05/04/2024 Menstrual migraine (CMS/HCC) 05/04/2024 Mixed irritable bowel syndrome 05/04/2024 Myalgia 05/21/2016 Nausea 05/04/2024 Numbness and tingling sensation of skin 05/21/2016 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 Recommend thyroid function testing prior to surgery intervention. documented in this encounterReynolds County General Memorial [id number] Hospital Discharge instructionsAmbulatory Orders* Referral to ENT Time Frame: 04/19/24, Location: [facility] Work Phone: 1(514) 415-328803-29-2024 Hospital Discharge instructions Follow Up Care 12/03/2023 15:41:19 With:Luis CLINE, GAIL Pappas, [facility] Address: [address] [place] [address], [facility] [address] [phone]- [phone] When:3 months [facility] 03-28-2024 History of Present illness Narrative* Mario Pascal RN - 12/02/2023 2:15 PM EDT Patient Education Patient education regarding the following topic(s) was provided on 12/02/2023: plan of care . Those in attendance for the education included: patient and spouse. Barriers in providing the education included: none. The following methods were used in providing the education: explanation and handout. [facility] handoutsgiven included: After visit summary. The response of those in attendance was: states/identifies education topic. The following Clinical Intervention(s) occurred during today s visit: Orthostatic or Coarctation vital signs completed and Extensive teaching provided to patient and or support team regarding plan ofcare * Kristine Thornton, TERMITE EXTERMINATOR-JAVA TECHNICAL ARCHITECT - 12/02/2023 2:15 PM EDT Subjective History of Present Illness We have [...] . Wt Readings from Last 3 Encounters: 08/17/23 62.1 kg (136 lb 12.8 oz) 10/01/22 [...] worsening diffuse MS symptoms encouraged her to followup with rheumatology. 4. GI symptoms, followed with [...] Dr. Sosa. * Trip Sosa MD - 12/02/2023 2:15 PM EDT Patient seen with DIRECT SALES CONSULTANT I saw and personally examined this patient with the nurse practitioner. The patient is generally doing well and is compensated on examination. Her complaints seem referable to the gastrointestinal and skeletal muscle systems. We recommended she follow-up was a special education tutor and a proposal review analyst, the latter especially given the strong family history of rheumatological disorders (RA, lupus). Otherwise, we will continue the current treatment plan, as outlined in the DIRECT SALES CONSULTANT note. The plan was developed mutually at the time of the clinic visit. The nurse practitioner and I spoke with the patient and provided written and verbal instructions for the patient. The note has been reviewed and I agree with the assessment and plan. Follow up arrangements were made prior to the patient being discharged from the clinic. documented in this encounterChillicothe Hospital03-28-2024 Instructions* Patient Instructions* Kristine Thornton APRN-JAVA TECHNICAL ARCHITECT - 12/02/2023 2:15 PM EDT The following instructions were given today: -follow up with rheumatology and gastroenterology Your after visit summary (AVS) is viewable in [facility] My Chart. Call RN if you have cardiac questions/concerns M-F 8 to 4:30 ; office # [phone], option 6, then option 2. Guidelines for home management: 1. Continue to monitor weight first thing each morning. 2. Report to the CHF CLINIC ([phone]) any significant weight change. Remember that weight [...] to have labs/tests run outside of the [facility] and you do not hear from us1-2 days after they are performed, you must call us to ensure we received the results. Office fax #[phone]. No news does not necessarily mean that your tests are normal, it could mean we did not get the results. For questions/updates: please provide your name with spelling, date of and question or update All calls are prioritized and responses researched, if possible, prior to calls being returned. Call Scheduling for any appointment/procedure verification or changes [phone], option 7 or [facility] at [phone], option 1. documented in this encounterOSU [facility]02-23-2024 Miscellaneous Notes* Telephone Encounter - Rina Lord - 10/29/2023 4:38 PM EST CV PHONE Name of caller : Avis Relationship to patient : [facility] If not self Will need patient permission to release results or disclose health information with called documented in fyi. Patient identified by Name and Date of . ( Marianna Ramirez, 1975). Yes Number to return call [phone] Reason for Call: Avis is calling from [facility] to obtain notes and information for prior Auth of MRI WO IVCON. Sent: Thank you calling [facility]. You will receive a return call within 48hours ( or 2 business days if close to the weekend). If you feel that this is an urgent issue and needs immediate attention, it is recommended that you contact your primary care provider office or proceed to your nearest Urgent Care Center of Emergency Room ED for evaluation/treatment. documented in this encounterProtestant [facility]acon[facility]02-19-2024 Miscellaneous Notes* Telephone Encounter - Jatinder Valle RN - 10/25/2023 4:04 PM EST Called patient. She also describes facial pressure that radiates into her jaw and ears, that occursalong with her ear popping. She said it feels like a sinus infection but she has not been blowingher nose. Discussed she should consider discussing symptomatic treatment with her PCP but did verify that Dr. Bolivar previously okayed MRI w/o contrast. Reinforced that it will not show an asymptomaticDVA, but could show changes such as a development of a cavernoma, especially if there was any bleeding. Patient verifies understanding and agrees with plan. Will overnight order. Jatinder Valle RN * Telephone Encounter - Carmita Giraldo RN - 10/25/2023 2:38 PM EST Returned call to patient. Patient states that she has been having some shoulder and neck pain for afew weeks. She then developed menstrual headaches. In [...] Forwarded to Dr Bolivar's team to review * Telephone Encounter - Rina Lord - 10/25/2023 2:13 PM EST CV PHONE Name of caller : Marianna Relationship to patient : Self If not self Will need patient permission to release results or disclose health information with called documented in . Patient identified by Name and Date of . ( Marianna Ramirez, 1975). Yes Number to return call [phone] Reason for Call: Symptoms Call: Symptoms: headache [...] something else going on. Thank you calling [facility]. You will receive a return call within 48hours ( or 2 business days if close to the weekend). If you feel that this is an urgent issue and needs immediate attention, it is recommended that you contact your primary care provider office or proceed to your nearest Urgent Care Center of Emergency Room ED for evaluation/treatment. documented in this encounterProtestant Deaconess Hospital08-29-2023 Hospital Discharge instructions Patient Education 05/04/2023 12:23:01 Food Choices for Gastroesophageal Reflux Disease, Adult Food Choices for Gastroesophageal Reflux Disease, Adult When you have gastroesophageal reflux disease (GERD), the foods you eat and your eating habits are very important. Choosing the right foods can help ease the discomfort of GERD. Consider working witha dietitian to help you make healthy food [...] you need help quitting, ask your health careprovider. Sleep with the head of your bed raised. Use a wedge under the mattress or blocks under the bed frame to raise the head of the bed. Chew sugar-free gum after mealtimes. What foods should I eat? Eat a healthy, well-balanced diet of fruits, vegetables, whole grains, low-fat dairy products, leanmeats, fish, and poultry. Each person is different. Foods that may trigger symptoms in one person may not trigger any symptoms in another person. Work with your health care provider to identify foodsthat are safe for you. The items listed above may not be a complete list of recommended foods and beverages. Contact a dietitian for more information. What foods should I avoid? Limiting some of these foods may help manage the symptoms of GERD. Everyone is different. Consult adietitian or your health care provider to help you identify the exact foods to avoid, if any. Fruits Any fruits prepared with added fat. Any fruits that cause symptoms. For some people this may include citrus fruits, such as oranges, grapefruit, pineapple, and jeff. Vegetables Deep-fried vegetables. Swedish fries. Any vegetables prepared with added fat. [...] symptoms, talk with your health care provider abouttaking medicines. Where to find more information International [...] provider. Document Revised: 03/03/2021 Document Reviewed: 03/03/2021 [employer] Keys Patient Education 2022 [employer]. Follow Up Care 01/28/2023 14:16:26 With:Jessica Lopez CNP Address: When:6 months [facility] 08-17-2023 History of Present illness Narrative* Cecilia Spencer RN - 04/22/2023 3:45 PM EDT Patient Education Patient education regarding the following [...] patient and or support team regarding plan ofcare. * Kristine Kary Thornton, TERMITE EXTERMINATOR-JAVA TECHNICAL ARCHITECT - 04/22/2023 3:45 PM EDT History of Present Illness We have had the pleasure of seeing your patient, Marianna Ramirez who is a 47 y.o. female who presents to the [facility] Failure Clinic for follow-up of HFrEF (post ) w/ recovered EF and microvascular disease. Today, the patient denies any recent emergency room visits or hospitalizations. Has been strugglingwith worsening palpitations (notes tightness in her throat with these) 3-4 times a week and HR fluctuating/palpitatations (refer to 03/31/23 Draft message for detailed symptoms). Continues to go [...] m (5' 2 ), weight 62.1 kg (136lb 12.8 oz), SpO2 98 %. Body mass [...] Dr. Sosa. * Trip Sosa MD - 04/22/2023 3:45 PM EDT Patient seen with DIRECT SALES CONSULTANT I saw and personally examined this patient with the nurse practitioner. The patient complains of increased palpitations.Both her resting and exercise heart rates have risen over the past several weeks.She is compensated on examination. We will increase the dose of carvedilol and otherwise continue the current treatment plan, as outlined in the DIRECT SALES CONSULTANT note. The plan was developed mutually at the time of the clinic visit. The nurse practitioner and I spoke with the patient and provided written and verbal instructions for the patient. The note has been reviewed and I agree with the assessment and plan. Follow up arrangements were made prior to the patient being discharged from the clinic. documented in this encounterOSU [facility]08-17-2023 Instructions* Patient Instructions* Cecilia Spencer RN - 04/22/2023 3:45 PM EDT The following instructions were given today: -Increase Coreg to 1.5 tablets (37.5mg) twice a day with food. -Follow up with Dr. Sosa in 6 months. Your after visit summary (AVS) is viewable in [facility] My Chart. Call RN if you have cardiac questions/concerns M-F 8 to 4:30 ; office # [phone], option 6, then option 2. Guidelines for home management: 1. Continue to monitor weight first thing each morning. 2. Report to the CHF CLINIC ([phone]) any significant weight change. Remember that weight [...] to have labs/tests run outside of the [facility] and you do not hear from us1-2 days after they are performed, you must call us to ensure we received the results. Office fax #[phone]. No news does not necessarily mean that your tests are normal, it could mean we did not get the results. For questions/updates: please provide your name with spelling, date of and question or update All calls are prioritized and responses researched, if possible, prior to calls being returned. Call Scheduling for any appointment/procedure verification or changes [phone], option 7 or [facility] at [phone], option 1. documented in this encounterOSU [facility]view [facility] Center08-09-2023 Miscellaneous Notes* Telephone Encounter - Jatinder Valle RN - 04/14/2023 10:10 AM EDT Called patient. She states that she has [...] he recommends following the patient symptomatically. Patient agreesand states that she had not had any many symptom changes. Two weeks ago she did have a brief periodof bilateral blurry vision and self resolved, and it has not reoccurred. She will follow up with her PCP for that and call us with any questions or future change in symptoms. Patient agrees. Jatinder Valle RN * Telephone Encounter - Sandip Hernández Marat Christel - 04/12/2023 11:57 AM EDT CV PHONE Name of caller : Marianna Relationship to patient : Self If not self Will need patient permission to release results or disclose health information with called documented in fyi. Patient identified by Name and Date of . ( Marianna Ramirez, 1975). Yes Number to return call [phone] Reason for Call: Patient Question/Update: Marianna is calling to say she developed an allergy to contrast and cannot have MRI W/WO. Also she would like to know if she can have it done locally. Please call. Thank you calling [facility]. You will receive a return call within 48hours ( or 2 business days if close to the weekend). If you feel that this is an urgent issue and needs immediate attention, it is recommended that you contact your primary care provider office or proceed to your nearest Urgent Care Center of Emergency Room ED for evaluation/treatment. documented in this encounterProtestant [facility]acon[facility] Hospital05-10-2023 Hospital Discharge instructions Patient Education 01/13/2023 10:19:37 [...] inflammation that blocks the normal passage of foodand liquids. Causes of these problems include: ?Acid [...] a feeling like something is stuck in yourthroat or a sense of trouble with swallowing, [...] swallowing therapy may be used to help youstrengthen your swallowing muscles. You may have to do specific exercises to strengthen the musclesor stretch them. If the dysphagia is caused by a blockage or mass, procedures to remove the blockage may be done. You may need surgery and a feeding tube. You may need to make diet changes. Ask your health care provider for specific instructions. Follow these instructions at home: Medicines Take ryjn-dxl-rzojcan and prescription medicines only as told by your health care provider. If you were prescribed an antibiotic medicine, take it as told by your health care provider. Do notstop taking the antibiotic even if you start to feel better. Eating and drinking Make any diet changes as told by your health care provider. Work with a diet and nutritional health coach (dietitian) to create an eating plan that [...] you need help quitting, ask your health careprovider. Keep all follow-up visits. This is important. [...] provider. Document Revised: 04/12/2021 Document Reviewed: 04/12/2021 [employer] Patient Education 2022 [employer]. Follow Up Care 01/07/2023 14:24:39 With:Jessica Lopez CNP Address: When:3 months [facility] 04-26-2023 Note [id number]:127[facility] 12-28-[facility] Evaluation + Plan noteExtracted from: Title:JAYME post op Author:Frank Tovar MD Date:12/28/22 Plan Transfer/Discharge: Transfer/Discharge Discharge when meets criteria ( To home ). Extracted from: Title:JAYME GA Author:Frank Tovar MD Date:12/28/22 Plan [place] [employer]esthesiologists (ASA) physical status classification: Class II. Anesthetic Preoperative Plan: Anesthesia General. [facility]04-24-2023 Hospital Discharge instructions Patient Education 12/28/2022 [...] including vitamins, herbs, eye drops, creams, and hvlk-pjs-uyzaeqo medicines. Any problems you or family members [...] provider tells you to take them. ?Taking cskk-pla-qkvhahw medicines, vitamins, herbs, and supplements. Follow instructions [...] home. Follow these instructions at home: Take impv-fjg-ubphxbr and prescription medicines only as told by [...] provider. Document Revised: 01/08/2021 Document Reviewed: 01/08/2021 [employer] Patient Education 2022 [employer]. 12/28/2022 10:55:03 Endoscopy, Care After Procedure [facility] ([facility]) Endoscopy Care After Procedure Please read the instructions outlined below and refer to this sheet in the next few weeks. These discharge instructions provide you with general information on caring [facility] Your doctor may also give you [...] Document Re-Released: 02/14/2007 ExitCare Patient Information 2009 [employer]. Follow Up Care 12/21/2022 13:31:10 With:Petty AMBROSE Address: [address] [place] [address] [facility] ([address] When:1 to 2 weeks Comments:Call for any problems. [facility]04-17-2023 Hospital Discharge instructions Patient Education 12/21/2022 [...] serving. Talk with a diet and nutritional health coach (dietitian) if you have questions about specific [...] Bulgur wheat. Millet. Quinoa. Bran muffins. Popcorn. [place] wafer crackers. Meats and other proteins Mackay, kidney, and aparicio beans. Soybeans. Split peas. [...] Cream cheese. Sour cream. Fats and oils Pringle. Beverages Soft drinks. Other foods Cakes and [...] 08/23/2006 Document Revised: 06/27/2018 Document Reviewed: 06/27/2018 [employer] Patient Education 2020 [employer]. Follow Up Care 12/17/2022 13:25:02 With:Jessica Lopez CNP Address: When:1 month [facility] [phone] Telephone encounter Note* Telephone Encounter - REINA Erickson - 11/12/2022 8:39 AM EST Send [employer] message to [employer] for update, K a little low at 3.5. [facility]03-09-2023 Miscellaneous Notes* Telephone Encounter - REINA Erickson - 11/12/2022 8:39 AM EST Send [employer] message to [place] for update, K a little low at 3.5. * Telephone Encounter - Kia Colin RN - 11/06/2022 3:12 PM EST 11/05/22 faxed lab results from [facility] entered and copy sent to [facility]. Fwd to Dr Sosa and EMANI. [facility] Telephone encounter Note* Telephone Encounter - Kia Colin RN - 11/06/2022 3:12 PM EST 11/05/22 faxed lab results from [facility] entered and copy sent to [facility]. Fwd to Dr Sosa and HFNP. [facility] History of Present illness Narrative* Kristine Thornton, TERMITE EXTERMINATOR-JAVA TECHNICAL ARCHITECT - 10/01/2022 2:45 PM EST History of [...] a little bit. Really enjoyed going to [employer] for a trip in a RV. On [...] conjunction with Dr. Sosa. [facility] Instructions* Patient Instructions* Janine Fu RN [...] M-F 8 to 4:30 ; office # [phone], option 6, then option 2. Guidelines for home management: 1. Continue to monitor weight first thing each morning. 2. Report to the [facility]INIC ([phone]) any significant weight change. Remember that weight [...] to have labs/tests run outside of the [facility] and you do not hear from us1-2 days after they are performed, you must call us to ensure we received the results. Office fax #[phone]. No news does not necessarily mean that your tests are normal, it could mean we did not get the results. For questions/updates: please provide your name with spelling, date of and question or update All calls are prioritized and responses researched, if possible, prior to calls being returned. Call Scheduling for any appointment/procedure verification or changes [phone], option 7 or [facility] at [phone], option 1. documented in this [facility] Evaluation note * Encounter Date [...] understanding and is agreeable with treatment plan [employer] Other 07-14-2022 Instructions* Patient Instructions* Janine Fu [...] M-F 8 to 4:30 ; office # [phone], option 6, then option 2. Guidelines for home management: 1. Continue to monitor weight first thing each morning. 2. Report to the CHF CLINIC ([phone]) any significant weight change. Remember that weight [...] to have labs/tests run outside of the [facility] and you do not hear from us1-2 days after they are performed, you must call us to ensure we received the results. Office fax #[phone]. No news does not necessarily mean that your tests are normal, it could mean we did not get the results. For questions/updates: please provide your name with spelling, date of and question or update All calls are prioritized and responses researched, if possible, prior to calls being returned. Call Scheduling for any appointment/procedure verification or changes [phone], option 7 or [facility] at [phone], option 1. [facility] History of Present illness Narrative* Kristine Thornton, TERMITE EXTERMINATOR-JAVA TECHNICAL ARCHITECT - 03/19/2022 3:15 PM EDT History of [...] scale back a little bit. Going to [employer] for a trip in a RV. Stillhas [...] with LVEF equal to 67%. Event Monitor 2/19/22: Sinus rhythm at baseline and during symptoms [...] 03/19/2022 3:15 PM EDT Patient seen with DIRECT SALES CONSULTANT I saw and personally examined this patient [...] thecurrent treatment plan, as outlined in the DIRECT SALES CONSULTANT note. The plan was developed mutually at the time of the clinic visit. The nurse practitioner and I spoke with the patient and provided written and verbal instructions for the patient. The note has been reviewed and I agree with the assessment and plan. Follow up arrangements were made prior to the patient being discharged from the clinic. documented in this encounter[facility] Evaluation note * Encounter Date [...] Follow up with primary care provider or link cutter if no improvement of symptoms. [employer] Other evaluation + Plan note Future Appointments Appointment Date:12/28/2022 10:35:00 AM Scheduled Provider: Location:[facility] Appointment Type:Surgery FT Diagnostic Tests Pending * Enteric Panel by PCR 12/21/22 * Clostridium Difficile PCR 12/21/22 * Fecal WBC Lactoferrin 12/21/22 * O & P Exam, Routine 12/21/22 * Giardia lamblia, Direct Detection EIA 12/21/22 * CBC w/ Auto Diff 12/21/22 * Comprehensive Metabolic Panel 12/21/22 [facility] Evaluation + Plan note Future Appointments Appointment Date:11/04/2023 12:20:00 PM Scheduled Provider:Jessica Lopez CNP Location:[facility] Up [facility] evaluxicjr noteNo assessment information available [facility] Work Phone: evaluation note* 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 Chronic systolic heart failure [facility] encounter [facility] noteNo InformationNort [employer] Other evaluation note* 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 Palpitations [facility]* Diagnosis Other cardiomyopathy- Primary [facility]* Diagnosis 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, unspecified site [facility] Other cardiomyopathy- Primary Palpitations [facility]* 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 [facility]* Diagnosis Cardiac microvascular disease- Primary Other and unspecified angina pectoris [facility]* Diagnosis Onset Date Resolution Status Arthralgia acute Family history of lupus acut e Lumbar pain acute [facility] Work Phone: Evaluation note* Diagnosis Onset Date Resolution Status Swelling, mass, or lump in head and neck acute [facility] Work Phone: Evaluation note* Diagnosis Follicular thyroid carcinoma (CMS/HCC)- Primary Malignant neoplasm of thyroid gland documented in this encounter [facility] HealthcareEvaluation note* Diagnosis Cardiac microvascular disease- Primary Other and unspecified angina pectoris [facility] 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 Atypical chest pain Other chest pain [facility]* Diagnosis Thyroid nodule (CMS/HCC)- Primary Nontoxic uninodular goiter Globus sensation Gastrointestinal malfunction arising from mental factors documented in this encounter [facility] HealthcareEvaluation note* Diagnosis Thyroid nodule (CMS/HCC)- Primary Nontoxic uninodular goiter documented in this encounter [facility] HealthcareEvaluation note* Diagnosis Thyroid nodule (CMS/HCC)- Primary Nontoxic uninodular goiter Follicular thyroid carcinoma (CMS/HCC) Malignant neoplasm of thyroid gland documented in this encounter [facility] HealthcareEvaluation note* Diagnosis Encounter for gynecological examination without abnormal finding Screening for malignant neoplasm of cervix Screening for malignant neoplasm of the cervix Encounter for screening mammogram for breast cancer documented in this encounter [facility] HealthcareEvaluation note* Diagnosis Chronic rhinitis- Primary Nasal pain Other diseases of nasal cavity and sinuses Thyroid carcinoma (CMS/HCC) Malignant neoplasm of thyroid gland documented in this encounter [facility] HealthcareEvaluation note* Diagnosis Thyroid cancer (CMS-HCC)- Primary Malignant neoplasm of thyroid gland Postoperative hypothyroidism Postsurgical hypothyroidism [facility]* Diagnosis Other cardiomyopathy Palpitations [facility] Diagnosis Globus sensation- Primary Gastrointestinal malfunction arising from mental factors Thyroid cancer (CMS/HCC) Malignant neoplasm of thyroid gland Chronic sinusitis, unspecified location Postoperative hypothyroidism (CMS/HCC) Postsurgical hypothyroidism documented in this encounter [facility] HealthcareEvaluation note* Diagnosis Thyroid cancer (HCC)- Primary Malignant neoplasm of thyroid gland Postoperative hypothyroidism Postsurgical hypothyroidism Neck mass Swelling, mass, or lump in head and neck documented in this encounter [facility] HealthcareEvaluation note* Diagnosis Vaginal atrophy- Primary Postmenopausal atrophic vaginitis Vaginal irritation Pruritus of genital organs documented in this encounter [facility] HealthcareEvaluation note* Diagnosis Thyroid cancer (CMS-HCC) Malignant neoplasm of thyroid gland Postoperative hypothyroidism Postsurgical hypothyroidism documented in this encounter [facility] SystemHistory general Narrative - Reported* Type Description Date Medical History cardiomyopathy [employer] Other Hospital course Narrative No data available for this section [facility] Hospital Discharge instructions No data available for this section [facility] Hospital Discharge instructionsAmbulatory Orders* Referral to Pain Management Time Frame: 12/10/23, Location: None Selected * Referral to Rheumatology Time Frame: 12/10/23, Location: None Selected [facility] Work Phone: Hospital Discharge instructions Additional [...] office to follow up in one week. [][facility] Work Phone: Instructions* Attachments The following attachments cannot be sent through Care Everywhere. * Levothyroxine? ADULT (Slovenian) documented in this encounterProFlower Hospital SystemInstructionsNot on file documented in this encounterProFlower Hospital SystemInstructionsNot on file documented in this encounterProFlower Hospital SystemProgress note No data available for this section [facility] Reason for Referral Specialty Diagnoses / Procedures Referred By Fariha valle Referred To Contact Diagnoses Cardiac microvascular disease Atypical chest pain Procedures CT ANGIO CARDIAC WITH CORONARY ARTERIES CHG CTA HRT CORNRY ART/BYPASS GRFTS CONTRST 3D POST Kristine Thornton, TERMITE EXTERMINATOR-JAVA TECHNICAL ARCHITECT [address] [place] [address] Referral ID Status Reason Start Date Expiration Date Visits Re quested Visits Authorized [id number] Closed 05/18/2024 06/12/2025 1 1 Specialty Diagnoses / Procedures Referred By Fariha valle Referred To Contact MR IMAGING Diagnoses Vascular malformation Congenital vascular anomaly Procedures MRI BRAIN WO IVCON MRI BRAIN BRAIN STEM W/O CONTRAST MATERIAL Jyoti Aguilera, AFIA.JAVA TECHNICAL ARCHITECT [address] [place] [address] Mr Imaging [place] [address] Referral ID Status Reason Start Date Expiration Date Visits Requested Visits Authorized [id number] Pending Review Auto-Generat ed Referral 10/25/2023 11/23/2024 1 1 Specialty Diagnoses / Procedures Referred By Contac t Referred To Contact MR IMAGING Diagnoses Developmental venous anomaly Procedures MRI BRAIN WO/W IVCON MRI BRAIN BRAIN STEM W/O W/CONTRAST MATERIAL Ruth Ramirez PA-C [address] [place] [address] Mr Imaging Referral ID Status Reason Start Date Expiration Date Visits Requested Visits Authorized [id number] Pending Review Auto-Generat ed Referral 06/06/2023 12/14/2023 1 1 Specialty Diagnoses / Procedures Referred By Contac t Referred To Contact Diagnoses Cardiac microvascular disease Chronic systolic heart failure Procedures ECHOCARDIOGRAM IA ECHO HEART XTHORACIC,COMPLETE W DOPPLER Kristine Thornton, TERMITE EXTERMINATOR-JAVA TECHNICAL ARCHITECT [address] [place] [address] Referral ID Status Reason Start Date Expiration Date Visits Re quested Visits Authorized [id number] Closed 11/27/2021 12/22/2022 1 1 Summary Purpose [...] Time Advance Directives No March 16 12:17pm Advance Directive Response Recorded Date/ Time Advance Directives No March 16 11:17am Chief Complaint and Reason for Visit Chief [...] ump in head and neck Chief Complaint Admit Date right ear pain October 31, 2024 9:15am Chief Complaint Admit Date right ear pain October 31, 2024 9:15am ear pain, crackling in ear November 22 025 8:56am Reason for Visit Admit Date Otitis media with effusion October 9:15am Chief Complaint Admit Date right ear pain October 31, 2024 9:15am ear pain, crackling in ear November 22 025 8:56am hoarse voice, ear pain, congestion x3day s December 22, 2024 11:23am Reason for Visit Admit Date Otitis media with effusion October 9:15am Allergic rhinitis November 22, 2024 8:5 6am Thyroid cancer November 22, 2024 8:5 6am Additional Source Comments Care Teams (unrecognized sec tion and content) Team Status: Active Member Role Status Dates Cj Lazo MD Primary Care Provider Active Team Status: Inactive Member Role Status Dates Cj Lazo MD Primary Care Provide r, Attending Provider Active Start: October 31, 2024 End: October 31, 2024 Team Status: Inactive Member Role Status Dates Cj Lazo MD Primary Care Provide r, Attending Provider Active Start: November 22, 2024 End: November 22, 2024 Team Status: Active Member Role Status Dates Cj Lazo MD Primary Care Provide r, Attending Provider Active Start: December 06, 2024 Team Status: Inactive Member Role Status Dates Cj Lazo MD Primary Care Provider Active Start: December 22, 2024 End: December 22, 2024 Deja Pack APRN DIRECT SALES CONSULTANT-C Attending Provider Act gabriella Start: December 22, 2024 End: December 22, 2024 Team Status: Active Member Role Status Dates Cj Lazo MD Primary Care Provide r, Attending Provider Active Start: August 25, 2024 Team Status: Inactive Member Role Status Dates GENEVIEVE Poole Attending Provider Active Molecular Geneticist Relationship Specialty Start Date End Date Cj Lazo MD [address] [facility] [address] [place] [id number] PCP - General 02/26/11 Molecular Geneticist Relationship Specialty Start Date End Date Cj Lazo MD [address] [place] [address] PCP - General 02/26/11 Molecular Geneticist Relationship Specialty Start Date End Date Cj Lazo MD [address] [place] [address] [place] [address] PCP - General 02/26/11 Molecular Geneticist Relationship Specialty Start Date End Date Cj Lazo MD [address] [place] [address] PCP - General Family Medicine 01/13/16 Molecular Geneticist Relationship Specialty Start Date End Date Cj Lazo MD [address] [place] [address] PCP - General Family Medicine 01/13/16 Molecular Geneticist Relationship Specialty Start Date End Date Cj Lazo MD [address] [place] [address] [place] [address] PCP - General 02/26/11 Molecular Geneticist Relationship Specialty Start Date End Date Cj Lazo MD [address] [place] [address] PCP - General Family Medicine 01/13/16 Molecular Geneticist Relationship Specialty Start Date End Date Cj Lazo MD [address] [place] [phone] PCP - General Family Medicine 01/13/16 Molecular Geneticist Relationship Specialty Start Date End Date Cj Lazo MD [address] [place] [phone] PCP - General Family Medicine 01/13/16 Molecular Geneticist Relationship Specialty Start Date End Date Cj Lazo MD [address] [place] [address] [place] [address] PCP - General 02/26/11 Team Status: Inactive Member Role Status Dates Cj Lazo MD Primary Care Provide r, Attending Provider Active Start: December 10, 2023 End: December 10, 2023 Team Status: Inactive Member Role Status Dates Cj Lazo MD Primary Care Provider Active Start: April 13, 2024 End: April 13, 2024 Deja Pack APRN DIRECT SALES CONSULTANT-[place] Attending Provider Act gabriella Start: April 13, 2024 End: April 13, 2024 Team Status: Active Member Role Status Dates Cj Lazo MD Primary Care Provider Active Start: April 19, 2024 Deja Pack APRN DIRECT SALES CONSULTANT-[employer] Attending Provider Act gabriella Start: April 19, [...] May 24, 2024 End: May 24, 2024 Molecular Geneticist Relationship Specialty Start Date End Date Cj Lazo MD [address] [place] [phone] PCP - General Family Medicine 06/01/24 Ever Woodward DO [address] [place] [address] Otolaryngology 06/01/24 Deja Pack NP [address] [place] [address] Referring Physician Family Medicine 06/01/24 Molecular Geneticist Relationship Specialty [place] [address] [place] [address], [place] [address] PCP - General Family Medicine 06/01/24 Ever Woodward DO [address] [place] [address] Otolaryngology 06/01/24 [place] [address] [place] [address], [place] [address] Referring Physician Family Medicine 06/01/24 Molecular Geneticist Relationship Specialty Start Date End Date Cj Lazo MD [address] [place] [address], [place] [address] PCP - General 02/26/11 Molecular Geneticist Relationship Specialty Start Date End Date Cj Lazo MD [address] [place] [address], [place] [address] PCP - General 02/26/11 Molecular Geneticist Relationship Specialty Start Date End Date Unallocated, Henrique Greene MD [address] [place] [address] PCP - General Family Medicine 10/07/23 Molecular Geneticist Relationship Specialty Start Date End Date Unallocated, Henrique Greene MD [address] [place] [address] PCP - General Family Medicine 10/07/23 Molecular Geneticist Relationship Specialty Start Date End Date Unallocated, Henrique Greene MD [address] [place] [address] PCP - General Family Medicine 10/07/23 Molecular Geneticist Relationship Specialty Start Date End Date Unallocated, Henrique Greene MD [address] [place] [address] PCP - General Family Medicine 10/07/23 Molecular Geneticist Relationship Specialty Start Date End Date Cj Lazo MD [address] [place] [address] PCP - General Family Medicine 06/01/24 Ever Woodward DO [address] [place] [address] Otolaryngology 06/01/24 Deja Pack DIRECT SALES CONSULTANT [address] [place] [address] Referring Physician Family Medicine 06/01/24 Molecular Geneticist Relationship Specialty Start Date End Date Unallocated, Noms MD Jc [address] [place] [address] PCP - General Family Medicine 10/07/23 Molecular Geneticist Relationship Specialty Start Date End Date Cj Lazo MD [address] [facility] [place] [address] PCP - General Family Medicine 06/01/24 Ever Woodward DO [address] [place] [address] Otolaryngology 06/01/24 Deja Pack DIRECT SALES CONSULTANT [address] [place] [address] Referring Physician Family Medicine 06/01/24 Molecular Geneticist Relationship Specialty Start Date End Date Cj Lazo MD [address] [place] [phone] PCP - General Family Medicine 06/01/24 Ever Woodward DO [address] [place] [address] Otolaryngology 06/01/24 Deja Pack NP [address] [place] [address] Referring Physician Family Medicine 06/01/24 Molecular Geneticist Relationship Specialty Start Date End Date Cj Lazo MD [address] [facility] [place] [phone] PCP - General Family Medicine 06/01/24 Ever Woodward DO [address] [place] [address] Otolaryngology 06/01/24 Deja Pack NP [address] [place] [address], [place] [address] Referring Physician Family Medicine 06/01/24 Molecular Geneticist Relationship Specialty Start Date End Date Cj Lazo MD [address] [facility] [place] [address] PCP - General Family Medicine 06/01/24 Ever Woodward DO [address] [place] [address] Otolaryngology 06/01/24 Deja Pack NP [address] [place] [address] Referring Physician Family Medicine 06/01/24 Molecular Geneticist Relationship Specialty Start Date End Date Cj Lazo MD [address] [place], [place] [id number] PCP - General Family Medicine 11/29/24 Molecular Geneticist Relationship Specialty Start Date End Date Cj Lazo MD [address] [place] [address] PCP - General Family Medicine 11/29/24 Molecular Geneticist Relationship Specialty Start Date End Date Cj Lazo MD PCP - General 02/26/11 Molecular Geneticist Relationship Specialty Start Date End Date Cj Lazo MD PCP - General Family Medicine 06/01/24 Ever Woodward DO [address] [place] [address] Otolaryngology 06/01/24 Deja Pack NP [address] [place] [address] Referring Physician Family Medicine 06/01/24 Molecular Geneticist Relationship Specialty Start Date End Date Cj Lazo MD PCP - General Family Medicine 06/01/24 Ever Woodward DO [address] [place] [address] Otolaryngology 06/01/24 [place] [address] [place] [address] Referring Physician Family Medicine 06/01/24 Molecular Geneticist Relationship Specialty Start Date End Date Cj Lazo MD [address] [place] [address] PCP - General Family Medicine 06/01/24 Ever Woodward DO [address] [place] [address] Otolaryngology 06/01/24 Deja Pack NP [address] [place] [address] Referring Physician Family Medicine 06/01/24 Molecular Geneticist Relationship Specialty Start Date End Date Cj Lazo MD [address] [place] [address] PCP - General Family Medicine 06/01/24 Ever Woodward DO [address] [place] [address] Otolaryngology 06/01/24 Deja Pack DIRECT SALES CONSULTANT [address] [place] [address] Referring Physician Family Medicine 06/01/24 Molecular Geneticist Relationship Specialty Start Date End Date Cj Lazo MD [address] [place] [address] PCP - General Family Medicine 06/01/24 Ever Woodward DO [address] [place] [address] Otolaryngology 06/01/24 Deja Pack NP [address] [place] [address] Referring Physician Family Medicine 06/01/24 Molecular Geneticist Relationship Specialty Start Date End Date Cj Lazo MD [address] [place] [address] PCP - General Family Medicine 11/29/24 Goals (unrecognized section and content) Goals may [...] sectionGoals may be documented in an alternate sectionNot on filedocumented as of this encounterNot on filedocumented as of this encounterGoals may be documented in an alternate sectionNot on filedocumented as of this encounter REASON FOR VISIT (unrecogniz ed section and content) Specialty Diagnoses / Procedures Referred By Edwardac t Referred To Contact Diagnoses Cardiac microvascular disease Chronic systolic heart failure Procedures ECHOCARDIOGRAM IA ECHO HEART XTHORACIC,COMPLETE W DOPPLER Kristine Thornton APRN-JAVA TECHNICAL ARCHITECT [address] [place] [address] Referral ID Status Reason Start Date Expiration Date Visits Re quested Visits Authorized [id number] Closed 11/27/2021 12/22/2022 1 1 Reason Comments [...] HRT CORNRY ART/BYPASS GRFTS CONTRST 3D POST Kristine Thornton APRN-JAVA TECHNICAL ARCHITECT [address] [place] [address] Referral ID Status Reason Start Date Expiration Date Visits Re quested Visits Authorized [id number] Closed 05/18/2024 06/12/2025 1 1 Reason Comments Thyroid Nodule New Patient : Thyroi d nodule Reason Comments Post-op Left thyroid Reason Comments Gynecologic Exam Denies concerns. Den ies bowel/bladder/breast concerns. LMP 10/17/24 menses monthly. Pt up to date with mammogram. Reason Comments Facial Pain New Problem : right sided nose pain Reason Onset Date Comments Med Refill 11/30/2024 Reason Comments Thyroid Cancer 6 month with US / La bs Reason Comments Swollen Glands Swollen lymph node b ehind ear Reason Comments RESOURCE TEACHER concerns Pt c/o vaginal irrit ation. Pt thought it was her soap, since their formula changed. Pt was using Ivory soap. Denies any current itching. Pt states the cream did help with the itching. Pt states when she used monistat had burning sensation. LMP 04/24/25 Reason Comments Med Refill Source Comments (unrecognize d section and content) In the event this informatio n is protected by the Federal Confidentiality of Alcohol and Drug Abuse Patient Records regulations: The Federal rules restrict any use of the information to criminally investigate or prosecute any alcohol or drug abuse patient.[facility] the event this information is protected by the Federal Confidentiality of Alcohol and Drug Abuse Patient Records regulations: The Federal rules restrict any use of the information to criminally investigate or prosecute any alcohol or drug abuse patient.[facility] the event this information is protected by the Federal Confidentiality of Alcohol and Drug Abuse Patient Records regulations: The Federal rules restrict any use of the information to criminally investigate or prosecute any alcohol or drug abuse patient.[facility] the event this information is protected by the Federal Confidentiality of Alcohol and Drug Abuse Patient Records regulations: The Federal rules restrict any use of the information to criminally investigate or prosecute any alcohol or drug abuse patient.[facility] the event this information is protected by the Federal Confidentiality of Alcohol and Drug Abuse Patient Records regulations: The Federal rules restrict any use of the information to criminally investigate or prosecute any alcohol or drug abuse patient.[facility] INFORMATION SOURCE (unrecogn ized section and content) DATE CREATED AUTHOR 01/01/2023 Harmony veliz DATE CREATED AUTHOR AUTHOR'S ORGANIZ ATION 11/15/2023 [facility] DATE CREATED AUTHOR AUTHOR'S ORGANIZ ATION 12/21/2023 [facility] DATE CREATED AUTHOR AUTHOR'S ORGANIZ ATION 05/31/2024 [facility] DATE CREATED AUTHOR AUTHOR'S ORGANNICK ATION 12/23/2024 [facility] DATE CREATED AUTHOR AUTHOR'S ORGANNICK ATION 05/13/2025 [facility] dical Specialists [facility] FOR RECORDS PERTAINING TO PATIENTS WHO ARE [...] BE BASED ON THE PRIMARY CLINICAL RECORDS. [employer] provides no warranty or guarantee of the accuracy or completeness of information in this document.
[2025-06-18 17:36] LABS: Thyroid Stimulating Hormone 1.651 uIU/mL (0.358-3.740)
== END 2025-06-18 16:37 | disposition home or self-care (01) ==
PROVIDERS: PCP Family Medicine; Visit Provider Otolaryngology
DX: C73 Malignant neoplasm of thyroid gland (principal)
CPT/HCPCS: 36415; 84432; 84436; 84443; 84480

== ENCOUNTER 2025-06-19 13:43 | Outpatient (OUT) | payer OTHER, SELFPAY ==
--- OUTSIDE RECORDS SUMMARY | 2025-06-19 13:51 | XMS_ITS | Clinical Summary ---
Author Organization [employer] [facility] [facility] Address [id number] [place] [address] Care Team Providers Care Clay Carman Name Role Phone Natalie Ya MD Primary Care Provider [phone] Allergies Active Allergy Reactions Criticality Noted Date [...] (SYNTHROID, LEVOTHROID) 25 MCG tabletIndications: Thyroid cancer ([facility]),Postoper ative hypothyroidism TAKE 1 TABLET (25 MCG [...] Refill [facility], A Department of [facility] [address] [address] Ivon Mcmahon MD Thyroid cancer ([facility]); Postoperative hypothyroidism from Last 3 Months Social [...] on file Insurance [employer] Care Teams Clay Carman Relationship Specialty Start Date End Date Natalie Ya MD [address] [place] [address] PCP - General Family Medicine 11/29/24
--- OUTSIDE RECORDS SUMMARY | 2025-06-19 13:51 | XMS_ITS | Encounter Summary ---
Author Organization [facility] Address [address] [facility] [place] [address] Care Team Providers Care Accounts Receivable Supervisor Name Role Phone Unallocated, Noms Provider Primary Care Provi yana Natalie Ya MD Primary Care Provider [phone] Ever Nelson DO Unavailable [phone] Deja Pack BILINGUAL MANAGER Unavailable [phone] Encounter Details Date Type Department Care Team (Late st Contact Info) Description 12/21/2018 Abstract [facility] [address] [place] [address] Kia Haines, [facility] [address] [place] [address] Social History Tobacco Use Types [...] Office Visit [facility] Otolaryngology [address] [place] [address] Ever Nelson DO [address] [place] [address] 11/21/2025 9:45 AM EDT Office Visit ERICH HOWARD [address] [place] [phone] Ilana Kumari DO [address] [place] [address] documented as of this encounter Visit Diagnoses Not on filedocumented in this encounter Care Teams Accounts Receivable Supervisor Relationship Specialty Start Date End Date Unallocated, Erich Greene MD [address] [place] [address] PCP - General Family Medicine 10/07/23 05/31/24 Natalie Ya MD [address] [place] [phone] PCP - General Family Medicine 06/01/24 Ever Nelson DO [address] [place] [address] Otolaryngology 06/01/24 Deja Pack NP [address] [place] [address] Referring Physician Family Medicine 06/01/24 documented as of this encounter
--- OUTSIDE RECORDS SUMMARY | 2025-06-19 13:51 | XMS_ITS | Encounter Summary ---
Author Organization [facility] Address [address] [place] [address] Care Team Providers Care Fish Farmer Name Role Phone Natalie Ya MD Primary Care Provider [phone] Encounter Details Date Type Department Care Team (Late st Contact Info) Description 03/03/2012 Orders Only Cardiovascular Imaging Lab [facility] [address] [place] [phone] Trip Colon MD [address] [place] [address] Social History Tobacco Use Types Packs/Day [...] Description 06/28/2025 2:45 PM EDT Office Visit Sh[facility] [address] [place] [address] Trip Colon MD [address] [place] [address] 07/31/2025 1:30 PM EST Telemedicine [facility] [address] [place], [place] [phone] Shai Orr MD [address] [place] [address] Scheduled Orders Name Type Priority Associated Diagnoses Orde r Schedule ECHOCARDIOGRAM Echocardiography Orde red: 03/03/2012 documented as of this encounter Visit Diagnoses Not on filedocumented in this encounter Care Teams Fish Farmer Relationship Specialty Start Date End Date Natalie Ya MD PCP - General 02/26/11 documented as of this encounter
--- OUTSIDE RECORDS SUMMARY | 2025-06-19 13:51 | XMS_ITS | Encounter Summary ---
Author Organization [facility] [employer] [facility] tem Address [id number] [place] [address] Care Team Providers Care Vehicle Refinisher Name Role Phone Natalie Ya MD Primary Care Provider [phone] Encounter Details Date Type Department Care Team (Late st Contact Info) Description 02/22/2025 Telephone [facility], A Department of [facility] [address] [address] Cat Egan LPN Social History [...] on filedocumented in this encounter Care Teams Vehicle Refinisher Relationship Specialty Start Date End Date Natalie Ya MD [address] [place] [address] PCP - General Family Medicine 11/29/24 documented as of this encounter
--- OUTSIDE RECORDS SUMMARY | 2025-06-19 13:51 | XMS_ITS | Clinical Summary ---
Author Organization [facility] Address [address] [facility] [place] [address] Care Team Providers Care Coin Machine Mechanic Name Role Phone Natalie Ya MD Primary Care Provider [phone] Allergies Active Allergy Reactions Criticality Noted Date Comments Gadolinium Derivatives 11/15/2020 Rash Fentanyl 11/15/2020 Rash Gadobutrol Rash Low 10/19/2018 Other reaction(s): Chills, Dry Mouth, Itchy Throat Pt had reaction to gadolinium even after patient took 13 hour prep of prednisone and Benadryl for past mild reaction Midazolam Rash Low 07/25/2019 This medication was taken with fentanyl and pt had a reaction, unknown which medication made the pt have a reaction Other 01/30/2021 Medications No known medications Active Problems No known active problems Social History Tobacco Use Types Packs/Day Years Used Date Smoking Tobacco: Never Smokeless Tobacco: Never Comments Unknown Sex and Gender Information Value Date Recorded Sex Assigned at Not on file Legal Sex Female 9:45 AM EST Gender Identity Not on file Sexual Orientation Not on file Last Filed Vital Signs Vital Sign Reading Time Taken Comments Blood Pressure - - Pulse - - Temperature 36.3 C (97.3 F) 01/30/2021 1:00 PM EDT Respiratory Rate - - Oxygen Saturation - - Inhaled Oxygen Concentration - - Weight 59 kg (130 lb) 01/30/2021 1:00 PM EDT Height 157.5 cm (5' 2 ) 01/30/2021 1:00 PM EDT Body Mass Index 23.78 01/30/2021 1:00 PM EDT Plan of Treatment Not on file Insurance [employer] Care Teams Coin Machine Mechanic Relationship Specialty Start Date End Date Natalie Ya MD PCP - General Family Medicine 05/20/18
--- OUTSIDE RECORDS SUMMARY | 2025-06-19 13:51 | XMS_ITS | Encounter Summary ---
Author Organization [facility] Address [address] [facility] [place] [address] Care Team Providers Care Sewer Head Name Role Phone Unallocated, Noms Provider Primary Care Provi yana Natalie Ya MD Primary Care Provider [phone] Ever Nelson DO Unavailable [phone] Deja Pack GARAGE LABORER Unavailable [phone] Encounter Details Date Type Department Care Team (Late st Contact Info) Description 05/25/2017 Abstract [facility] [address] [place] [address] Kia Haines, [facility] [address] [place] [address] Social History Tobacco Use Types [...] Office Visit [facility] Otolaryngology [address] [place] [address] Ever Nelson DO [address] [place] [address] 11/21/2025 9:45 AM EDT Office Visit ERICH HOWARD [address] [place] [phone] Ilana Kumari DO [address] [place] [address] documented as of this encounter Visit Diagnoses Not on filedocumented in this encounter Care Teams Sewer Head Relationship Specialty Start Date End Date Unallocated, Erich Greene MD [address] [place] [address] PCP - General Family Medicine 10/07/23 05/31/24 Natalie Ya MD [address] [place] [phone] PCP - General Family Medicine 06/01/24 Ever Nelson DO [address] [place] [address] Otolaryngology 06/01/24 Deja Pack NP [address] [place] [address] Referring Physician Family Medicine 06/01/24 documented as of this encounter
--- OUTSIDE RECORDS SUMMARY | 2025-06-19 13:51 | XMS_ITS | Encounter Summary ---
Author Organization [facility] Address [address] [place] [address] Care Team Providers Care Supervisor [employer] Name Role Phone Unallocated, Noms Provider Primary Care Provi yana Natalie Ya MD Primary Care Provider [phone] Ever Nelson DO Unavailable [phone] Deja Pack MANAGER ACTION Unavailable [phone] Encounter Details Date Type Department Care Team (Late st Contact Info) Description 05/17/2024 External Result Encounter [facility] External Department Unsolicited Ever Nelson DO [address] [place] [address] Social History Tobacco Use Types Packs/Day Years [...] Visit [facility] Mckeon Otolaryngology [address] [place] [address] Ever Nelson, [address] [facility] [place] [address] 11/21/2025 9:45 AM EDT Office Visit [facility]ENRIQUE Mckeon ANIAT [address] [place] [address] Ilana Kumari DO [address] [place] [address] documented as of this encounter Procedures Procedure Name Priority Date/Time Associated Diagnosis Comments ECG 12-LEAD 05/17/2024 8:10 AM EDT documented in this encounter Results * ECG 12 lead (05/17/2024 8:10 AM EDT) 05/17/2024 8:10 AM EDT [facility] - 05/18/2024 12:41 AM EDT [facility] [address] [address] Electrocardiograph Report Signed Patient: Marianna Whitney MR#: [id number] : 1975 Acct:[id number] Age/Sex: 49 / F ADM Date: 05/17/24 Loc: Room: Type: [facility] Attending Dr: Ever Nelson DO Ordering Provider: [...] previous ECGs available Confirmed by Katlin Dean ([id number]) on 05/18/2024 12:40:53 AM Referred By: Electronically Signed By: Katlin Dean Transcribed By: MUS Signed By Katlin Dean MD 4 0040 Procedure Note Katlin Dean MD - 05/18/2024 [facility] [address] [address] Electrocardiograph Report Signed Patient: Marianna Whitney MMR#: [id number] : 1975Acct:[id number] Age/Sex: 49 / FADM Date: 05/17/24 Loc: Room:Type: [facility] Attending Dr: Ever Nelson DO Ordering Provider: [...] previous ECGs available Confirmed by Katlin Dean ([id number]) on 05/18/2024 12:40:53 AM Referred By: Electronically Signed By: Katlin Dean Transcribed By: MUS Signed By Katlin Dean MD 4 0040 us Ever Nelson DO ECG ORDERABLES Final Resul t [address] [address], documented in this encounter Visit Diagnoses Not on filedocumented in this encounter Care Teams Supervisor [employer] Relationship Specialty Start Date End Date Unallocated, Noms Provider, [address] [place] [address] PCP - General Family Medicine 10/07/23 05/31/24 Natalie Ya MD [address] [place] [address] PCP - General Family Medicine 06/01/24 Ever Nelson DO [address] [place] [address] Otolaryngology 06/01/24 Deja Pack NP [address] [place] [address] Referring Physician Family Medicine 06/01/24 documented as of this encounter
--- OUTSIDE RECORDS SUMMARY | 2025-06-19 13:51 | XMS_ITS | Encounter Summary ---
Author Organization [facility] Address [address] [place] [address] Care Team Providers Care Physical Security Engineer Name Role Phone Unallocated, Noms Provider Primary Care Provi yana Natalie Ya MD Primary Care Provider [phone] Ever Nelson DO Unavailable [phone] Deja Pack INSPECTOR WELDED PARTS Unavailable [phone] Encounter Details Date Type Department Care Team (Late st Contact Info) Description 09/20/2023 Orders Only [facility] HOWARD [address] [place] [address] Ilana Kumari DO [address] [place] [address] Social History Tobacco Use Types Packs/Day [...] Office Visit [facility] Mckeon Otolaryngology [address] [place] [address] Ever Nelson, [address] [place] [address] 11/21/2025 9:45 AM EDT Office Visit [facility]QUE [place] ANITA [address] [place] [address] Ilana Kumari DO [address] [place] [address] documented as of this encounter Procedures Procedure Name Priority Date/Time Associated Diagnosis Comments MAMMOGRAM-DIAGNOSTIC* Routine 09/17/2023 10:08 AM EST documented in this encounter Results * MAMMOGRAM-DIAGNOSTIC* (09/17/2023 10:08 AM EST) Anatomical Region Laterality Modality Radiographic Esperanza ging us Ilana Kumari DO IMG XR PROCEDURES Final Res ult documented in this encounter Visit Diagnoses Not on filedocumented in this encounter Care Teams Physical Security Engineer Relationship Specialty Start Date End Date Unallocated, Nompradeep Grenee MD [address] [place] [address] PCP - General Family Medicine 10/07/23 05/31/24 Natalie Ya MD [address] [place] [address] PCP - General Family Medicine 06/01/24 Ever Nelson DO [address] [place] [address] Otolaryngology 06/01/24 Deja Pack NP [address] [place] [address] Referring Physician Family Medicine 06/01/24 documented as of this encounter
--- OUTSIDE RECORDS SUMMARY | 2025-06-19 13:51 | XMS_ITS | Clinical Summary ---
Author Organization [facility] Address [address] [place] [address] Care Team Providers Care Vacuum Evaporation Operator Name Role Phone Natalie Ya MD Primary Care Provider [phone] Ever Nelson DO Unavailable [phone] Deja Pack SPEECH LANGUAGE SPECIALIST Unavailable [phone] Allergies Active Allergy Reactions Criticality Noted Date [...] (05/04/2024): Added automatically from request for surgery [id number] Esophageal dysphagia 03/03/2019 024 Overview (05/04/2024): Added automatically from request for surgery [id number] Irritable bowel syndrome wit h both constipation and diarrhea 03/03/2019 05/04/2024 Overview (05/04/2024): Added automatically from request for surgery [id number] Family history of lupus erythematosus 05/21/2016 05/04/2024 Family history of rheumatoid arthritis 05/21/2016 05/04/2024 Fibromyalgia 05/21/2016 05/04/2024 Joint stiffness of multiple sites 05/21/2016 05/04/2024 Numbness and tingling sensation of skin 05/21/2016 05/04/2024 Myalgia 05/21/2016 05/04/2024 Pain in joint, multiple sites 05/21/2016 05/04/2024 Cardiomyopathy 10/06/2002 05/04/2024 Encounters Date Type Department Care Team Description 05/23/2025 Telephone [facility] [place] [facility] [address] [place] [phone] Ever Nelson, 05/15/2025 Telephone [facility] [place] [facility] [address] [place] [address] Ilana Kumari, 05/11/2025 9:30 AM EDT Office Visit [facility] [address] [place] [address] Ilana Kumari, Vaginal atrophy (Primary Dx); Vaginal irritation 05/11/2025 Bamboo flowsheet [facility] [place] [facility] [address] [place] [phone] Ilana Kumari, DO 05/11/2025 Travel 04/30/2025 Refill [facility] [place] [facility] [address] [place] [address] Ilana Kumari, DO Vaginal irritation 04/16/2025 Telephone [facility] [place] [facility] [address] [place] [address] Heidi Darling LPN medical question 03/29/2025 3:30 PM EDT Office Visit [facility] [address] [place] [address] Ever Nelson, DO Thyroid cancer (HCC) (Primary [...] Office Visit [facility]RIQUE Mckeon Otolaryngology [address] [place] [address] Ever Nelson DO [address] [place] [address] 11/21/2025 9:45 AM EDT Office Visit HENRIQUE HOWARD [address] [place] [address] Ilana Kumari DO [address] [place] [address] Procedures Procedure Name Priority Date/Time Associated Diagnosis Comments TSH Routine 06/19/2025 12:43 PM EDT Thyroid cancer (HCC) T4 (THYROXINE), TOTAL Routine 06/19/2025 12:43 PM EDT Thyroid cancer (HCC) from Last 3 Months Results * TSH (06/19/2025 12:43 PM EDT) Blood Venous blood specimen / Unknown Ever Nelson DO LAB BLOOD ORDERABLES Final Result EXTERNAL LAB * T4 (06/19/2025 12:43 PM EDT) Blood Venous blood specimen / Unknown Ever Nelson DO LAB BLOOD ORDERABLES Final Result EXTERNAL LAB from Last 3 Months Insurance [employer] Care Teams Vacuum Evaporation Operator Relationship Specialty Start Date End Date Natalie Ya MD [address] [place] [address] PCP - General Family Medicine 06/01/24 Ever Nelson DO [address] [place] [address] Otolaryngology 06/01/24 Deja Pack NP [address] [place] [address] Referring Physician Family Medicine 06/01/24
--- OUTSIDE RECORDS SUMMARY | 2025-06-19 13:52 | XMS_ITS | Encounter Summary ---
Author Organization [facility] Address [address] [place] [address] Care Team Providers Care Cell Feed Department Supervisor Name Role Phone Natalie Ya MD Primary Care Provider [phone] Ever Nelson DO Unavailable [phone] Deja Pack SWING MANAGER Unavailable [phone] Encounter Details Date Type Department Care Team (Late st Contact Info) Description 10/02/2024 Orders Only [facility]QUE HOWARD [address] [place] [address] Ilana Kumari DO [address] [place] [address] Social History Tobacco Use Types [...] Office Visit HENRIQUE Mckeon Otolaryngology [address] [place] [address] Ever Nelson DO [address] [place] [address] 11/21/2025 9:45 AM EDT Office Visit NOM[facility]vonne Mckeno ANITA [address] [place] [phone] Ilana Kumari DO [address] [place] [address] documented as of this encounter Procedures Procedure [...] on filedocumented in this encounter Care Teams Cell Feed Department Supervisor Relationship Specialty Start Date End Date Natalie Ya MD [address] [place] [address] PCP - General Family Medicine 06/01/24 Ever Nelson DO [address] [place] [address] Otolaryngology 06/01/24 Deja Pack NP [address] [facility] [place] [address] Referring Physician Family Medicine 06/01/24 documented as of this encounter
--- OUTSIDE RECORDS SUMMARY | 2025-06-19 13:52 | XMS_ITS | Encounter Summary ---
Author Organization [facility] Address [address] [facility] [place] [address] Care Team Providers Care Risk Control Field Representative Name Role Phone Natalie Ya MD Primary Care Provider [phone] Ever Nelson DO Unavailable [phone] Deja Pack CONVEYANCER Unavailable [phone] Encounter Details Date Type Department Care Team (Late st Contact Info) Description 07/21/2024 Orders Only HENRIQUE Mckeon Otolaryngology [address] [place] [address] Kelly Martínez MA Follicular thyroid [...] Visit H[facility]RIQUE Mckeon Otolaryngology [address] [place] [address] Ever Nelson, DO [address] [place] [address] 11/21/2025 9:45 AM EDT Office Visit NOM[facility]vonne Mcke[facility] ANITA [address] [place] [phone] Ilana Kumari DO [address] [place] [address] documented as of this encounter Procedures Procedure Name Priority Date/Time Associated Diagnosis Comments THYROGLOBULIN Routine 07/21/2024 9:07 AM EST Follicular thyroid carcinoma (HCC) documented in this encounter Results * Thyroglobulin (07/21/2024 9:07 AM EST) Blood Venous blood specimen / Unknown Ever Nelson DO LAB BLOOD ORDERABLES Final Result Performing Organization Address City/State/[facility] Co de Phone Number EXTERNAL LAB documented in this encounter Visit Diagnoses Diagnosis Follicular thyroid carcinoma (HCC) Malignant neoplasm of thyroid gland documented in this encounter Care Teams Risk Control Field Representative Relationship Specialty Start Date End Date Natalie Ya MD [address] [place] [address] PCP - General Family Medicine 06/01/24 Ever Nelson DO [address] [place] [address] Otolaryngology 06/01/24 Deja Pack NP [address] [facility] [place] [place] [address] Referring Physician Family Medicine 06/01/24 documented as of this encounter
--- OUTSIDE RECORDS SUMMARY | 2025-06-19 13:52 | XMS_ITS | Clinical Summary ---
Author Organization [facility] Address [address] [place] [address] Care Team Providers Care Community Service Representative Name Role Phone Natalie Ya MD Primary Care Provider [phone] Allergies Active Allergy Reactions Criticality Noted Date [...] (07/12/2019): Added automatically from request for surgery [id number] Esophageal dysphagia 03/03/2019 Overview (03/03/2019): Added automatically from request for surgery [id number] Irritable bowel syndrome wit h both constipation and diarrhea 03/03/2019 Overview (03/03/2019): Added automatically from request for surgery [id number] Other dyspnea and respiratory abnormality 2012 Chronic systolic heart failure 04/06/2013 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 Lightheadedness Palpitations Insomnia Family History Medical History Relation Name Comments Coronary Artery Disease Father rTip Rousseau Myocardial Infarction Father Trip Rousseau Sudden [...] Status Comments Father Trip Rousseau (Age 44) [place] Maternal Grandfather Charles Irby Maternal Grandmother Carl [...] Description 06/28/2025 2:45 PM EDT [facility] [address] [place] [id number] Trip Colon MD [address] [place] [address] 07/31/2025 1:30 PM EST [facility] [address] [place], [place] [id number] Shai Orr MD [address] [place], [place] [id number] Health Maintenance Due Date Last Done Comments [...] 107.8 TCHOL/HDL RATIO, MANUAL ENTER 3.6 12/19/2022 [facility] Provider LAB SEND OUTS Final Result * TSH (09/18/2021 4:34 PM EST) TSH 0.981 0.550 - 4.780 uIU/mL 09/18/2021 5:44 PM EST [facility] Blood 09/18/2021 4:34 PM EST 09/18/2021 4:34 PM EST Justyna Heller SILK SCREEN REPAIRER-SUPPLY CHAIN ASSISTANT ENDOCRINOLOGY Final Re sult [facility] [address] [id number] from Last 3 Months or Most Recently Relevant to Health Maintenance Insurance MMO Care Teams Community Service Representative Relationship Specialty Start Date End Date Natalie Ya MD PCP - General 02/26/11
[2025-06-19 14:24] LABS: Hematocrit 37.4 % (36.0-48.0); Hemoglobin 12.9 g/dL (12.0-16.0); Immature Granulocytes Abs Auto 0.01 10^3/uL (0.00-0.03); Immature Granulocytes Pct Auto 0.1 % (0.0-0.5); Lymphocytes Absolute Auto 2.2 10^3/uL (1.2-3.8); Mean Corpuscular HGB Conc 34.5 g/dL (29.9-35.2); Mean Corpuscular Hemoglobin 29.5 pg (26.7-34.0); Mean Corpuscular Volume 85.6 fL (81.0-99.0); Platelet Count 287 10^3/uL (150-450); Red Blood Count 4.37 10^6/uL (4.20-5.40); White Blood Count 7.1 10^3/uL (4.0-11.0)
[2025-06-19 14:47] LABS: Alanine Aminotransferase 24 U/L (14-59); Albumin Globulin Ratio 1.0; Albumin Level 4.0 g/dL (3.4-5.0); Alkaline Phosphatase 66 U/L (46-116); Anion Gap 10.7; Aspartate Amino Transferase 18 U/L (15-37); Blood Urea Nitrogen 12.0 mg/dL (7.0-18.0); Calcium 9.0 mg/dL (8.5-10.1); Carbon Dioxide 29.2 mmol/L (21.0-32.0); Chloride 105 mmol/L (98-107); Estimated GFR (African America >60 (>=60 mL/min/1.73m^2); Estimated GFR (Non-African Ame >60 (>=60 mL/min/1.73m^2); Globulin 4.1 g/dL; Glucose 99 mg/dL (74-106); Potassium 3.9 mmol/L (3.5-5.1); Sodium 141 mmol/L (136-145); TSH W/ REFLEX FT4 1.190 uIU/mL (0.358-3.740); Total Protein 8.1 g/dL (6.4-8.2)
[2025-06-19 15:10] LABS: Iron 123.0 ug/dL (50.0-170.0); Percent Iron Saturation 34.5 %; Total Iron Binding Capacity 357.0 ug/dL (250.0-450.0)
[2025-06-19 15:23] LABS: Ferritin 29.0 ng/mL (8.0-252.0)
== END 2025-06-19 13:44 | disposition home or self-care (01) ==
PROVIDERS: PCP Family Medicine; Visit Provider Nurse Practitioner
DX: R00.2 Palpitations (principal); R07.89 Other chest pain; R53.83 Other fatigue
CPT/HCPCS: 36415; 80053; 82728; 83540; 83550; 84443; 85025